=== PATIENT | female | born 1940 | race Caucasian/White ===

== ENCOUNTER 2017-10-12 13:59 | Emergency (ER) | payer BC, MEDICARE ==
[2017-10-12] MEDS: ACETAMINOPHEN 325 MG TABLET. PO (15:14)
== END 2017-10-12 16:00 | disposition home or self-care (01) ==
LOC: ER 13:59
DX: S09.90XA Unspecified injury of head, initial encounter (principal); E03.9 Hypothyroidism, unspecified; I10 Essential (primary) hypertension; E11.9 Type 2 diabetes mellitus without complications; Z88.5 Allergy status to narcotic agent; Z88.8 Allergy status to other drugs, medicaments and biological substances; W10.1XXA Fall (on)(from) sidewalk curb, initial encounter; Y93.01 Activity, walking, marching and hiking; Y99.8 Other external cause status; Y92.89 Other specified places as the place of occurrence of the external cause
CPT/HCPCS: 70450; 70480; 72125; 99284-25

== ENCOUNTER → 2019-03-27 | Outpatient (CLI) | payer MEDICARE ==
[2017-10-12 15:30] VITALS: BP 110/57
[~2019-03-27] MED LIST: ACET325T9 PO; AMLO5TAB10 PO; ASPI-482 PO; ASPI325T8 PO; CIPR250T30 PO; ENOX40DI SQ; FURO40TA4 PO; FURO80TA72 PO; GABA300C18 PO; HYDR-2769 PO; INSU100C SQ; INSU100I18 SQ; INSU100V8 SQ; IRBE75TA2 PO; LEVO175T5 PO; LEVO75TA5 PO; LINE600T12 PO; LORA1TAB PO; LOSA25TA54 PO; METF10007 PO; METF500T16 PO; MUPI22OI2 TP; PIPE3.379 IV; POTA20TA12 PO; POTA20TA4 PO; TRAM50TA PO; VANC750F IV
--- NOTE | 2019-03-27 17:31 | RAD ---
Examination: VENOUS LOWER EXTREMITY RIGHT History: Swelling Comparison/Correlation: None FINDINGS: Right lower extremity duplex venous ultrasound exam was performed. Grayscale, color Doppler, and spectral Doppler imaging was performed. Compression and augmentation was performed. The right common femoral vein, superficial femoral vein, popliteal vein, and greater saphenous vein are normal with no evidence of deep venous thrombus. Normal compressibility and augmentation is evident. Visualized right calf veins are unremarkable. IMPRESSION: Normal right lower extremity duplex ultrasound exam. No evidence of deep venous thrombus involving the right lower extremity. Electronically signed by: Alcides Finch MD (03/27/2019 5:28 PM) [facility]
== END | disposition home or self-care (01) ==
LOC: US 14:59
PROVIDERS: ATTEND Internal Medicine
DX: M79.89 Other specified soft tissue disorders (principal); E11.9 Type 2 diabetes mellitus without complications
CPT/HCPCS: 93971

== ENCOUNTER 2019-05-18 21:21 | Inpatient (IN) | payer MEDICARE ==
[~2019-05-18] VITALS: Ht 167.6 cm; Wt 123.7 kg
[2019-05-18 21:52] LABS: BASO # 0.1 x10^3/uL (0.0-0.2); BASO % 1 % (0-3); EOS # 0.2 x10^3/uL (0.0-0.7); EOS % 2 % (0-3); HEMATOCRIT 33.6 % (36.0-47.0); HEMOGLOBIN 10.1 g/dL (12.0-15.5); LYMPH % 9 % (24-48); MEAN CORPUSCULAR HEMOGLOBIN 22 pg (25-35); MEAN CORPUSCULAR HGB CONC 30 g/dL (31-37); MEAN CORPUSCULAR VOLUME 71 fL (79-100); MONO % 9 % (0-9); NEUT % 80 % (31-73); PLATELET COUNT 342 x10^3/uL (140-400); RED CELL DISTRIBUTION WIDTH 18.5 % (11.5-14.5); WHITE BLOOD COUNT 11.3 x10^3/uL (4.0-11.0)
--- NOTE | 2019-05-18 21:57 | PHYS DOC ---
Past Medical History Past Medical History: Diabetes-Type II, Hypertension, Hypothyroid, Other Additional Past Medical Histor: cpap at night for sleep apnea Past Surgical History: Appendectomy, Hysterectomy, Tonsillectomy, Other Additional Past Surgical Histo: patient reports bilateral toe amputations. LEFT BKA Smoking Status: Never Smoker Alcohol Use: None Drug Use: None Adult General Chief Complaint Chief Complaint: MULTIPLE COMPLAINTS HPI HPI 78-year-old female presents to the emergency department with complaints of shortness of breath, abdominal distention, nausea as well as vomiting. Patient denies any fever. She states her last bowel movement was yesterday. Upon arrival patient's oxygen saturations were 77% on room air. She is currently on 4 L with saturations of 100%. She has decreased lung sounds appreciated bilaterally on exam. She is mildly tachypneic on examination. Patient states she uses a sleep apnea machine at home however no oxygen. Nothing makes her symptoms worse, nothing makes her symptoms better. She is overall not felt well for the last month however the shortness of breath is what brought her to the emergency depar tment for further evaluation. Patient denies any chest pain, headache, visual change she does complain of right lower extremity swelling and edema with weeping. Review of Systems Review of Systems Constitutional: Denies fever or chills [] Respiratory: +SOB Cardiovascular: No additional information not addressed in HPI [] GI: + abdominal pain, nausea, vomiting, no bloody stools or diarrhea [] : Denies dysuria or hematuria [] Musculoskeletal: Denies back pain or joint pain, RLE edema appreciated/weeping [] Integument: Denies rash or skin lesions [] Neurologic: Denies headache, focal weakness or sensory changes [] All other systems were reviewed and found to be within normal limits, except as documented in this note. Current Medications Current Medications Current Medications Medications (Trade) Dose Ordered Sig/Meagan Start Time Stop Time Status Last Admin Dose Admin Albuterol/ Ipratropium (Duoneb) 3 ml 1X ONCE 05/18/19 22:00 05/18/19 22:01 DC 05/18/19 22:00 3 ML Allergies Allergies Allergies Coded Allergies Type Severity Reaction Last Updated Verified lisinopril Allergy Severe THROAT, TONGUE SWELLING 11/16/13 Yes adhesive Allergy Intermediate TAPE-RED SKIN 11/16/13 Yes sertraline HCl Allergy Intermediate 11/16/13 Yes morphine Adverse Reaction Intermediate Nausea 11/16/13 Yes Physical Exam Physical Exam Constitutional: Well developed, well nourished, no acute distress, non-toxic appearance. [] HENT: Normocephalic, atraumatic, bilateral external ears normal, oropharynx moist, no oral exudates, nose normal. [] Eyes: PERRLA, EOMI, conjunctiva normal, no discharge. [] Cardiovascular:Heart rate regular rhythm, no murmur [] Lungs & Thorax: decreased BS Abdomen: Bowel sounds normal, soft, no tenderness, no masses, no pulsatile masses. [] Skin: Warm, dry, no erythema, no rash. [] Back: No tenderness, no CVA tenderness. [] Extremities: RLE tenderness, + edema, left BKA [] Neurologic: Alert and oriented X 3, no focal deficits noted. [] Psychologic: Affect normal, judgement normal, mood normal. [] Current Patient Data Vital Signs Vital Signs Date Time Temp Pulse Resp B/P (MAP) Pulse Ox O2 Delivery O2 Flow Rate FiO2 05/18/19 22:00 Room Air Lab Values Laboratory Tests Test 05/18/19 21:30 05/18/19 22:35 05/18/19 23:55 White Blood Count 11.3 x10^3/uL (4.0-11.0) H Red Blood Count 4.70 x10^6/uL (3.50-5.40) Hemoglobin 10.1 g/dL (12.0-15.5) L Hematocrit 33.6 % (36.0-47.0) L Mean Corpuscular Volume 71 fL (79-100) L Mean Corpuscular Hemoglobin 22 pg (25-35) L Mean Corpuscular Hemoglobin Concent 30 g/dL (31-37) L Red Cell Distribution Width 18.5 % (11.5-14.5) H Platelet Count 342 x10^3/uL (140-400) Neutrophils (%) (Auto) 80 % (31-73) H Lymphocytes (%) (Auto) 9 % (24-48) L Monocytes (%) (Auto) 9 % (0-9) Eosinophils (%) (Auto) 2 % (0-3) Basophils (%) (Auto) 1 % (0-3) Neutrophils # (Auto) 9.0 x10^3/uL (1.8-7.7) H Lymphocytes # (Auto) 1.0 x10^3/uL (1.0-4.8) Monocytes # (Auto) 1.0 x10^3/uL (0.0-1.1) Eosinophils # (Auto) 0.2 x10^3/uL (0.0-0.7) Basophils # (Auto) 0.1 x10^3/uL (0.0-0.2) Toxic Granulation Slight Platelet Estimate Adequate (ADEQUATE) Polychromasia Slight Hypochromasia Mod Anisocytosis Slight Microcytosis Marked Target Cells Occ D-Dimer (Lexi) 1.14 ug/mlFEU (0.00-0.50) H Sodium Level 143 mmol/L (136-145) Potassium Level 4.3 mmol/L (3.5-5.1) Chloride Level 101 mmol/L (98-107) Carbon Dioxide Level 35 mmol/L (21-32) H Anion Gap 7 (6-14) Blood Urea Nitrogen 29 mg/dL (7-20) H Creatinine 1.2 mg/dL (0.6-1.0) H Estimated GFR (Cockcroft-Gault) 43.6 BUN/Creatinine Ratio 24 (6-20) H Glucose Level 158 mg/dL (70-99) H Calcium Level 9.4 mg/dL (8.5-10.1) Total Bilirubin 0.8 mg/dL (0.2-1.0) Aspartate Amino Transferase (AST) 10 U/L (15-37) L Alanine Aminotransferase (ALT) 10 U/L (14-59) L Alkaline Phosphatase 81 U/L (46-116) VA-Ewg-U-Type Natriuretic Peptide 3884 pg/mL (0-449) H Total Protein 7.9 g/dL (6.4-8.2) Albumin 3.2 g/dL (3.4-5.0) L Albumin/Globulin Ratio 0.7 (1.0-1.7) L Influenza Type A Antigen Negative (NEGATIVE) Influenza Type B Antigen Negative (NEGATIVE) Urine Collection Type Unknown Urine Color Yellow Urine Clarity Clear Urine pH 7.5 (<5.0-8.0) Urine Specific [place] 1.015 (1.000-1.030) Urine Protein 30 mg/dL (NEG-TRACE) Urine Glucose (UA) Negative mg/dL (NEG) Urine Ketones (Stick) Negative mg/dL (NEG) Urine Blood Trace (NEG) Urine Nitrite Negative (NEG) Urine Bilirubin Negative (NEG) Urine Urobilinogen Dipstick 1.0 mg/dL (0.2 mg/dL) Urine Leukocyte Esterase Moderate (NEG) Urine RBC 1-2 /HPF (0-2) Urine WBC 11-20 /HPF (0-4) Urine Squamous Epithelial Cells Many /LPF Urine Bacteria Many /HPF (0-FEW) Laboratory Tests 05/18/19 21:30 Laboratory Tests 05/18/19 21:30 EKG EKG EKG interpretation time 2144 left axis deviation, normal sinus rhythm, heart rate 86, no STEMI[] Radiology/Procedures Radiology/Procedures [address] [address] IMAGING REPORT Signed PATIENT: DIMAS REDMOND ACCOUNT: [id number] : 1940 LOCATION: ER AGE: 78 SEX: F EXAM STATUS: REG ER ORD. PHYSICIAN: SANDY PEDERSEN MD REASON: SOB PROCEDURE: PORTABLE CHEST 1V AP chest. HISTORY: Short of breath AP view was taken of the chest. Patient rotated to the left. Heart is within normal limits. There is haziness of the costophrenic angles from atelectasis or infiltrates or small effusions. There is mild vascular congestion versus mild interstitial changes or crowding of the vasculature from poor inspiration. IMPRESSION: 1. Densities at the costophrenic angles from small effusions versus mild atelectasis or infiltrates. 2. Mild interstitial prominence. Electronically signed by: Serafin Cervantes MD (05/18/2019 11:24 PM) [id number] DICTATED and SIGNED BY: SERAFIN CERVANTES MD DATE: 05/18/192323 [] [address] [address] IMAGING REPORT Signed PATIENT: DIMAS REDMOND ACCOUNT: [id number] : 1940 LOCATION: ER AGE: 78 SEX: F EXAM STATUS: REG ER ORD. PHYSICIAN: SANDY PEDERSEN MD REASON: eelvated ddimer, right lower ext edema PROCEDURE: VENOUS LOWER EXTREMITY RIGHT Examination: Unilateral venous Doppler. Grayscale, color Doppler and spectral analysis were obtained. Indication: Leg swelling Comparison: 03/27/2019 Findings: There is normal venous flow and compressibility of right common femoral vein, femoral vein, popliteal vein, and visualized proximal calf veins. Soft tissue swelling right lower leg. Impression: No evidence for deep vein thrombosis of right lower extremity from the level of the calf veins to the groins. Electronically signed by: Anton Rodriguez MD (05/19/2019 12:02 AM) [id number] DICTATED and SIGNED BY: ANTON RODRIGUEZ MD DATE: 05/19/19 0002 Course & Med Decision Making Course & Med Decision Making Pertinent Labs and Imaging studies reviewed. (See chart for details) []78-year-old female presents to the emergency department with complaints of shortness of breath, abdominal distention, nausea as well as vomiting. Patient denies any fever. She states her last bowel movement was yesterday. Upon arrival patient's oxygen saturations were 77% on room air. She is currently on 4 L with saturations of 100%. She has decreased lung sounds appreciated bilaterally on exam. She is mildly tachypneic on examination. Patient states she uses a sleep apnea machine at home however no oxygen. Nothing makes her symptoms worse, nothing makes her symptoms better. She is overall not felt well for the last month however the shortness of breath is what brought her to the emergency department for further evaluation. Patient denies any chest pain, headache, visual change she does complain of right lower extremity swelling and edema with weeping. Labs/Imaging reviewed WBC 11.3 CXR with evidence of effusion/consolidation left lower lobe CT chest without contrast pending V/Q scan pending Heparin drip initiated in ER until V/Q scan completed Doppler negative for DVT in RLE Discussed admit with Dr. Jane Story Disclaimer Jez Disclaimer This electronic medical record was generated, in whole or in part, using a voice recognition dictation system. Departure Departure Impression: Primary Impression: Hypoxia Additional Impressions: Left lower lobe consolidation Elevated d-dimer Disposition: ADMITTED INPATIENT Admitting Physician: MIRELLA Condition: IMPROVED Referrals: TERE ALLISON MD (PCP) Critical Care Time Critical care time was 35 minutes exclusive of procedures. Problem Qualifiers SANDY PEDERSEN MD May 18, 2019 21:56
[2019-05-18] MEDS ORDERED: IPRATRPIUM/ALBUTEROL 0.5/2.5MG 3 ML NEBU. NEB ONE (22:00)
[2019-05-18 22:01] LABS: CALCIUM 9.4 mg/dL (8.5-10.1); CREATININE 1.2 mg/dL (0.6-1.0); GFR 43.6; POTASSIUM 4.3 mmol/L (3.5-5.1)
[2019-05-18 22:08] LABS: ALBUMIN 3.2 g/dL (3.4-5.0); ALBUMIN/GLOBULIN RATIO 0.7 (1.0-1.7); TOTAL BILIRUBIN 0.8 mg/dL (0.2-1.0); TOTAL PROTEIN 7.9 g/dL (6.4-8.2)
[2019-05-18 22:14] LABS: ANISOCYTOSIS SLIGHT; HYPOCHROMIA MOD; MICROCYTOSIS MARKED; PLT ESTIMATE ADEQUATE (ADEQUATE); POLYCHROMASIA SLIGHT; TARGET CELLS OCC; TOXIC GRANULATION SLIGHT
--- NOTE | 2019-05-18 22:44 | EKG ---
[facility] [address] [place] [address] Test Date: 2019-05-18 Test Time: 21:39:17 Pat Name: DIMAS REDMOND Department: Room: Gender: F Technology Infusion Specialist: : 1940 Requested By: SANDY PEDERSEN Order Number: [id number] Reading MD: Measurements Intervals Frostproof Rate: 85 P: 37 ID: [id number] QRS: -49 QRSD: 116 T: 107 QT: 368 QTc: 443 Interpretive Statements SINUS RHYTHM ABNORMAL LEFT AXIS DEVIATION LEFT ANTERIOR FASCICULAR BLOCK QRS(T) CONTOUR ABNORMALITY CONSISTENT WITH ANTEROSEPTAL INFARCT PROBABLY OLD T ABNORMALITY IN HIGH LATERAL LEADS ABNORMAL ECG No previous ECG available for comparison
[2019-05-18 23:03] LABS: INFLUENZA A PATIENT NEGATIVE (NEGATIVE); INFLUENZA B PATIENT NEGATIVE (NEGATIVE)
--- NOTE | 2019-05-18 23:27 | RAD ---
AP chest. HISTORY: Short of breath AP view was taken of the chest. Patient rotated to the left. Heart is within normal limits. There is haziness of the costophrenic angles from atelectasis or infiltrates or small effusions. There is mild vascular congestion versus mild interstitial changes or crowding of the vasculature from poor inspiration. IMPRESSION: 1. Densities at the costophrenic angles from small effusions versus mild atelectasis or infiltrates. 2. Mild interstitial prominence. Electronically signed by: Serafin Cervantes MD (05/18/2019 11:24 PM) [id number]
--- NOTE | 2019-05-19 00:05 | RAD ---
Examination: Unilateral venous Doppler. Grayscale, color Doppler and spectral analysis were obtained. Indication: Leg swelling Comparison: 03/27/2019 Findings: There is normal venous flow and compressibility of right common femoral vein, femoral vein, popliteal vein, and visualized proximal calf veins. Soft tissue swelling right lower leg. Impression: No evidence for deep vein thrombosis of right lower extremity from the level of the calf veins to the groins. Electronically signed by: Anton Gonzales MD (05/19/2019 12:02 AM) [id number]
[2019-05-19 00:13] LABS: BILIRUBIN,URINE NEGATIVE (NEG); CLARITY,URINE CLEAR; COLOR,URINE YELLOW; NITRITE,URINE NEGATIVE (NEG); PH,URINE 7.5 (<5.0-8.0); PROTEIN,URINE 30 mg/dL (NEG-TRACE)
[2019-05-19 00:29] LABS: BACTERIA,URINE MANY /HPF (0-FEW); SQUAMOUS EPITHELIAL CELL,UR MANY /LPF
[2019-05-19] MEDS ORDERED: ACETAMINOPHEN 325 MG TABLET. PO PRN (01:15)
[2019-05-19] MEDS ORDERED: ONDANSETRON PF 4 MG/2 ML VIAL. IV PRN (01:15)
[2019-05-19] MEDS ORDERED: HEPARIN for IV BOLUS 10,000 UNIT/10 ML VIAL. IV PRN ×2 (02:00)
[2019-05-19] MEDS ORDERED: HEPARIN 25,000UTS/250ML PREMIX 250 ML IV PRN (02:00)
[2019-05-19] MEDS ORDERED: ANTI-COAG MONITOR BY PHARMACY. MC PRN (02:15)
[2019-05-19] MEDS ORDERED: HEPARIN for IV BOLUS 10,000 UNIT/10 ML VIAL. IV ONE (02:30)
--- NOTE | 2019-05-19 03:15 | RAD ---
CT chest without contrast. HISTORY: Left lower lobe possible consolidation CT scan the chest was done without contrast. There is hypertrophic change in the thoracic spine. There are small to moderate bilateral effusions slightly larger on the right. There is mild atelectasis in both lung bases. There is coronary artery calcification. There is atherosclerotic change in the aorta without an aneurysm. The upper aspect of the liver and spleen are unremarkable. Adrenal glands are normal. There is mild peribronchial thickening in the lung bases. There is atelectasis in the lung bases bilaterally related to the effusions. There is mild linear atelectasis in the lingula. There are no other confluent areas of infiltrate. IMPRESSION: 1. Bilateral pleural effusions. 2. Mild atelectasis in both lung bases. 3. Mild peribronchial thickening without other confluent areas of infiltrate. PQRS Compliance Statement: One or more of the following individualized dose reduction techniques were utilized for this examination: 1. Automated exposure control 2. Adjustment of the mA and/or kV according to patient size 3. Use of iterative reconstruction technique Electronically signed by: Serafin Cervantes MD (05/19/2019 3:12 AM) [id number]
[2019-05-19 03:45] VITALS: BP 150/62
--- NOTE | 2019-05-19 03:55 | RAD ---
Ventilation/perfusion lung scan. HISTORY: Elevated d-dimer short of breath Ventilation study was done using 15.5 mCi xenon-133. Ventilation images are unremarkable. Perfusion images were done using technetium 99m MAA injected intravenously. Perfusion images match the ventilation images. There is no segmental perfusion defect. There is no ventilation perfusion mismatch. IMPRESSION: 1. Low probability for a pulmonary embolus. Electronically signed by: Serafin Cervantes MD (05/19/2019 3:52 AM) [id number]
[2019-05-19 07:00] VITALS: BP 154/66
[2019-05-19] MEDS: IPRATRPIUM/ALBUTEROL 0.5/2.5MG 3 ML NEBU. NEB SCH ×4 (08:06→20:01)
[2019-05-19] MEDS ORDERED: levOFLOXacin PER PHARMACY. MC PRN (10:00)
[2019-05-19] MEDS ORDERED: FUROSEMIDE 20 MG/2 ML VIAL. IVP ONE (10:00)
--- NOTE | 2019-05-19 10:13 | CONS ---
DATE OF CONSULTATION: 05/19/2019 PULMONARY CONSULTATION ATTENDING PHYSICIAN: Ramirez Lara MD REASON FOR CONSULTATION: Dyspnea, hypoxia. HISTORY OF PRESENT ILLNESS: The patient is a 78-year-old morbidly obese patient with a BMI of 44. She has a history of obstructive sleep apnea, for which she uses CPAP and oxygen at night. She was brought into the hospital with complaint of increased shortness of breath. She has increased abdominal distention, also had swelling in her right lower extremity. She had no fever. She had a mild cough. Her saturation was 77% on room air. The patient had no chest pains. She was placed on oxygen. Currently, she is on a nasal cannula and her saturations are 96% on 2.5 liters. She is afebrile. I have reviewed the patient's V/Q scan, which showed low probability for pulmonary embolism. Influenza screen was negative. Since her D-dimer was 1.14, the V/Q scan was done. Venous Dopplers were negative as well. She underwent CT chest without contrast that showed bibasilar pleural effusions. I have been asked to see her for further evaluation. PAST MEDICAL HISTORY: Significant for type 2 diabetes, hypertension, hypothyroidism, history of LULI and possible OHS. PAST SURGICAL HISTORY: Appendectomy, hysterectomy, tonsillectomy, bilateral toe amputation and left BKA. ALLERGIES: LISINOPRIL, MORPHINE AND SERTRALINE. MEDICATIONS: Reviewed as listed in the MRAD including DuoNeb. Heparin per protocol and she received Levaquin. REVIEW OF SYSTEMS: Twelve-point system obtained. Pertinent positives discussed in my history of present illness, otherwise noncontributory. All systems that were negative were reviewed as well. SOCIAL HISTORY: Minimal tobacco history. PHYSICAL EXAMINATION: VITAL SIGNS: Reviewed. Blood pressure 154/66. Afebrile, pulse ox 95% on 2.5 liters. NECK: Supple. LUNGS: With diminished breath sounds. CARDIOVASCULAR: Regular rate. ABDOMEN: Soft, distended. EXTREMITIES: With 2+ pitting edema on the right with some erythema. LABORATORY DATA: Reviewed. Influenza screen negative. D-dimer high. BUN and creatinine 29 and 1.2. ProBNP is 3884. White cell count 11.3. IMPRESSION: 1. Acute hypoxic respiratory failure secondary to multifactorial etiologies including combination of [id number] right heart failure and acute bronchitis. 2. Abnormal D-dimer, which can be nonspecific finding. No evidence of pulmonary embolism by V/Q scan. Her venous Doppler of the right lower extremity was negative for deep venous thrombosis. 3. Bilateral pleural effusions, likely related to [id number] right heart failure. 4. History of obstructive sleep apnea, on home CPAP along with oxygen. She likely has a component of obesity hypoventilation syndrome as well as her bicarbonate is chronically elevated. RECOMMENDATIONS: 1. Continue present oxygen to keep saturation 92 and above. 2. Would recommend p.r.n. Lasix. Keep an eye on the renal function. 3. Full-dose heparin can be changed to DVT prophylaxis dose. 4. Continue bronchodilators. 5. Add empiric antibiotics. 6. Discussed with and will follow along with you. BILL BHANDARI MD DR: AUBREY/los JOB#: [id number] / [id number]
--- NOTE | 2019-05-19 10:38 | PDOC ---
Provider Note Provider Note history and physical dictated # [id number] TERE ALLISON MD May 19, 2019 10:38
[2019-05-19] MEDS ORDERED: ENOXAPARIN 30 MG/0.3 ML SYRINGE. SQ SCH (10:45)
[2019-05-19] MEDS ORDERED: ONDANSETRON PF 4 MG/2 ML VIAL. IVP PRN (10:45)
[2019-05-19 11:00] VITALS: BP 143/64
--- NOTE | 2019-05-19 11:02 | HP ---
ADMIT DATE: 05/19/2019 LOCATION: She is in room 662. HISTORY OF PRESENT ILLNESS: The patient is a 78-year-old morbidly obese white female with history of diabetes mellitus type 2, hypertension and hyperlipidemia with a previous left total knee arthroplasty and has obstructive sleep apnea who was admitted to [facility] through the Emergency Room on 05/19/2019 with 1-week history of shortness of breath and a dry cough. She denied any fever or hemoptysis. Her D-dimer was elevated at 1.14 and she underwent a ventilation perfusion scan of the lung, which showed low probability of pulmonary embolus and she had a venous Doppler of the right leg that was negative for deep vein thrombosis. Her influenza screen was negative. She also complained of some nausea and some abdominal distention. Her last bowel movement was 2 days ago. She denied any vomiting. Her oxygen saturations were 77% in the Emergency Room and she was started on oxygen per nasal cannula and subsequently admitted to the hospital. Her proBNP was elevated consistent with congestive heart failure. A CAT scan of the chest showed bilateral pleural effusions. She did receive Lasix 20 mg IV in the Emergency Room, also received 750 mg of Levaquin IV x 1 in the Emergency Room and started on a heparin drip. She was subsequently admitted to the hospital for further evaluation and treatment. ALLERGIES AND INTOLERANCES: INCLUDE ADHESIVE TAPE, LISINOPRIL, MORPHINE AND SERTRALINE. MEDICATIONS: Include allopurinol 100 mg every day, amlodipine 5 mg every day, aspirin 325 mg every day. Also, taking atorvastatin 10 mg every day at bedtime, carvedilol 6.25 mg b.i.d., Lasix 80 mg p.o. daily, gabapentin 300 mg t.i.d., levothyroxine 150 mcg every day. She is on 24 units of Lantus insulin at bedtime. She takes losartan 100 mg every day, metformin 1000 mg b.i.d., Myrbetriq 25 mg every day, NovoLog insulin 8 units before meals 3 times a day, Senokot-S 2 tablets every day and Paxil 20 mg every day. PAST MEDICAL HISTORY: Significant for diabetes mellitus type 2, on insulin; hypertension; hyperlipidemia; hypothyroidism; obstructive sleep apnea; chronic gout; left below-knee amputation; diabetic nephropathy; endometrial carcinoma. She has had diabetic proliferative retinopathy. She had a left below-knee amputation in 2013. She had a hysterectomy, bilateral salpingo-oophorectomy, right carpal tunnel release, left vitrectomy, appendectomy, tonsillectomy, amputation of right third toe, laser treatments to her eyes, amputation of fourth left toe, amputation of right second toe and amputation of third left toe. SOCIAL HISTORY: She is , does not drink alcohol nor does she smoke cigarettes. FAMILY HISTORY: Noncontributory. REVIEW OF SYSTEMS: GENERAL: There has been no fever, chills or sweats. CARDIOVASCULAR: No chest pain. PULMONARY: She had a dry cough and shortness of breath. GASTROINTESTINAL: Abdominal distention, nausea. ENDOCRINE: She has diabetes mellitus. SKIN: No rashes. Rest of systems reviewed are negative except as stated in history of present illness. PHYSICAL EXAMINATION: VITAL SIGNS: Temperature is 97.7 degrees, apical pulse is regular at 86, respiratory rate 18, blood pressure 154/66, oxygen saturation 96% on 3 liters per nasal cannula. HEENT: Eyes: Gaze is conjugate. Mouth: Tongue is midline. NECK: There is no cervical lymphadenopathy or thyroid enlargement. HEART: Reveals an S1, S2. There is no S3 or murmur. LUNGS: Reveal decreased breath sounds in the bases. ABDOMEN: Obese and soft. Bowel sounds positive, nontender. EXTREMITIES: Lower extremities 1+ edema in her right leg. She had a left below-knee amputation. SKIN: No rashes. NEUROLOGIC: Coherent with no focal weakness. LABORATORY DATA: White count 11.3, hemoglobin 10.1 with a platelet count 342,000, 80 polys and 9 lymphocytes. A D-dimer was 1.14. Sodium 143, potassium 4.3, chloride 101, total CO2 of 35, BUN 29, creatinine 1.2, blood sugar was 158. Liver function tests were normal. Her proBNP was increased at 3884. Albumin was 3.2. Fingerstick blood sugar was 133 this morning. Urinalysis showed 11-20 white cells. Influenza A and B were negative. She had a chest x-ray done, which showed densities and small effusions noted, densities in the costophrenic angles with mild interstitial prominence. She had a venous Doppler of the right lower extremity, which was negative for a deep vein thrombosis. She had a ventilation perfusion scan of low probability of pulmonary embolus. A CAT scan of the chest showed bilateral pleural effusions with mild atelectasis in lung bases. She had mild peribronchial thickening also noted without a confluent infiltrate. She had an electrocardiogram done. EKG showed normal sinus rhythm, left axis deviation, left anterior hemiblock and delayed precordial R-wave progression. ASSESSMENT: 1. Acute hypoxic respiratory failure, most likely secondary to bilateral pleural effusions and congestive heart failure. 2. Bilateral pleural effusions. 3. Acute congestive heart failure. It is unclear if it is systolic or diastolic. 4. Diabetes mellitus type 2, on insulin. 5. Hypertension. 6. Hyperlipidemia. 7. Hypothyroidism. 8. Obstructive sleep apnea. 9. History of a left total knee arthroplasty. 10. Anemia of chronic disease. PLAN: At this time is to consult Dr. Shankar who has already seen the patient for Pulmonary. We will consult Dr. Powers for Cardiology. Obtain an echocardiogram. Discontinue the systemic IV heparin. She will be a full admit. We can resume her home medications. Order Lovenox for deep vein thrombosis prophylaxis. Put her on IV Lasix. Repeat her laboratory test tomorrow. We will get a CAT scan of abdomen and pelvis without contrast. Bre fisher for nausea. TERE ALLISON MD DR: LAURA/los JOB#: [id number] / [id number]
--- NOTE | 2019-05-19 11:40 | PDOC2 ---
CARDIAC CONSULT DATE OF CONSULT Date of Consult DATE: 05/19/19 TIME: 11:25 REASON FOR CONSULT Reason for Consult: CHF REFERRING PHYSICIAN Referring Physician: Jane SOURCE Source: Chart review, Patient HISTORY OF PRESENT ILLNESS HISTORY OF PRESENT ILLNESS This is a pleasant 78 yo female admitted for complains of shortness of breath. This has been going on in the last 1.5 weeks Denies any chest pain but positive for orthopnea, increasing right leg swelling as she has LBKA. Reports no palpitations or frequent dizziness. She has LULI and has not used her CPAP for months complaining of fitting issue and that her machine is old. Reports compliance with her medications. No hx of VTE/CAD. She had remote MPI. Rep orts that she has been more fatigue and has gained wt and SOA increasing, right shoe getting tighter. PAST MEDICAL HISTORY Past Medical History Cardiovascular: HTN, Hyperlipidemia, Mild PAD, CHF Pulmonary: Other (CPAP with O2 at bedtime), Pneumonia CENTRAL NERVOUS SYSTEM: DPN GI: GERD Heme/Onc: Anemia, endometrial CA Hepatobiliary: No pertinent hx Psych: Anxiety Musculoskeletal: Osteoarthritis Rheumatologic: gout Infectious disease: Other (nasal MRSA), osteomyelitis ENT: cataract, retinopathy Renal/: UTI, CKD Endocrine: Diabetes, Hypothyroidism Dermatology: none PAST SURGICAL HISTORY Past Surgical History Appe, Cataract Removal, Total knee replacement, Tonsillectomy, Hysterectomy (MARY with BSO), Other (right carpal tunnel release, toe amputations. ), LBKA FAMILY HISTORY Family History noncontributory SOCIAL HISTORY Smoke: No ALCOHOL: none Drugs: None Lives: with Family CURRENT MEDICATIONS CURRENT MEDICATIONS Current Medications Medications (Trade) Dose Ordered Sig/Meagan Route PRN Reason Start Time Stop Time Status Last Admin Dose Admin Albuterol/ Ipratropium (Duoneb) 3 ml 1X ONCE NEB 05/18/19 22:00 05/18/19 22:01 DC 05/18/19 22:00 Levofloxacin/ Dextrose 150 ml @ 100 mls/hr 1X ONCE IV 05/19/19 01:30 05/19/19 02:59 DC 05/19/19 05:34 Albuterol/ Ipratropium (Duoneb) 3 ml RTQID NEB 05/19/19 08:00 05/20/19 07:59 05/19/19 08:06 Heparin Sodium (Porcine) (Heparin Sodium) 10,000 unit 1X ONCE IV 05/19/19 02:30 05/19/19 02:31 DC 05/19/19 02:40 Heparin Sodium/ Dextrose 250 ml @ 0 mls/hr CONT PRN IV PER PROTOCOL 05/19/19 02:00 05/19/19 10:47 DC 05/19/19 02:42 Info (Anti-Coagulation Monitoring By Pharmacy) 1 each PRN DAILY PRN MC SEE COMMENTS 05/19/19 02:15 05/19/19 10:47 DC 05/19/19 05:00 Furosemide (Lasix) 20 mg 1X ONCE IVP 05/19/19 10:00 05/19/19 10:03 DC 05/19/19 10:58 ALLERGIES ALLERGIES: Coded Allergies: lisinopril (Verified Allergy, Severe, THROAT, TONGUE SWELLING, 11/16/13) adhesive (Verified Allergy, Intermediate, TAPE-RED SKIN, 11/16/13) sertraline HCl (Verified Allergy, Intermediate, 11/16/13) morphine (Verified Adverse Reaction, Intermediate, Nausea, 11/16/13) ROS Review of System 14 point ROS evaluated with pertinent positives noted per HPI PHYSICAL EXAM General: Alert, Oriented X3, Cooperative, mild distress HEENT: Atraumatic, Mucous membr. moist/pink Lungs: Other (diminished with basilar crackles) Abdomen: Soft, No tenderness, Other (obese) Extremities: No cyanosis, Other (LBKA, 4+ RLE edema pitting) Skin: No breakdown, No significant lesion Neuro: Normal speech, Sensation intact Psych/Mental Status: Mental status NL, Mood NL MUSCULOSKELETAL: Osteoarthritic changes both hands VITALS/I&O VITALS/I&O: Vital Signs Date Time Temp Pulse Resp B/P (MAP) Pulse Ox O2 Delivery O2 Flow Rate FiO2 05/19/19 08:07 95 Nasal Cannula 2.5 05/19/19 07:00 97.7 86 18 154/66 (95) 97.7 I & O 05/18/19 05/18/19 05/19/19 15:00 23:00 07:00 Intake Total 0 ml Output Total 300 ml Balance -300 ml LABS Lab: Laboratory Tests Test 05/18/19 21:30 05/18/19 22:35 05/18/19 23:55 05/19/19 07:49 White Blood Count 11.3 x10^3/uL (4.0-11.0) H Red Blood Count 4.70 x10^6/uL (3.50-5.40) Hemoglobin 10.1 g/dL (12.0-15.5) L Hematocrit 33.6 % (36.0-47.0) L Mean Corpuscular Volume 71 fL (79-100) L Mean Corpuscular Hemoglobin 22 pg (25-35) L Mean Corpuscular Hemoglobin Concent 30 g/dL (31-37) L Red Cell Distribution Width 18.5 % (11.5-14.5) H Platelet Count 342 x10^3/uL (140-400) Neutrophils (%) (Auto) 80 % (31-73) H Lymphocytes (%) (Auto) 9 % (24-48) L Monocytes (%) (Auto) 9 % (0-9) Eosinophils (%) (Auto) 2 % (0-3) Basophils (%) (Auto) 1 % (0-3) Neutrophils # (Auto) 9.0 x10^3/uL (1.8-7.7) H Lymphocytes # (Auto) 1.0 x10^3/uL (1.0-4.8) Monocytes # (Auto) 1.0 x10^3/uL (0.0-1.1) Eosinophils # (Auto) 0.2 x10^3/uL (0.0-0.7) Basophils # (Auto) 0.1 x10^3/uL (0.0-0.2) Toxic Granulation Slight Platelet Estimate Adequate (ADEQUATE) Polychromasia Slight Hypochromasia Mod Anisocytosis Slight Microcytosis Marked Target Cells Occ D-Dimer (Lexi) 1.14 ug/mlFEU (0.00-0.50) H Sodium Level 143 mmol/L (136-145) Potassium Level 4.3 mmol/L (3.5-5.1) Chloride Level 101 mmol/L (98-107) Carbon Dioxide Level 35 mmol/L (21-32) H Anion Gap 7 (6-14) Blood Urea Nitrogen 29 mg/dL (7-20) H Creatinine 1.2 mg/dL (0.6-1.0) H Estimated GFR (Cockcroft-Gault) 43.6 BUN/Creatinine Ratio 24 (6-20) H Glucose Level 158 mg/dL (70-99) H Calcium Level 9.4 mg/dL (8.5-10.1) Total Bilirubin 0.8 mg/dL (0.2-1.0) Aspartate Amino Transferase (AST) 10 U/L (15-37) L Alanine Aminotransferase (ALT) 10 U/L (14-59) L Alkaline Phosphatase 81 U/L (46-116) LJ-Jmb-A-Type Natriuretic Peptide 3884 pg/mL (0-449) H Total Protein 7.9 g/dL (6.4-8.2) Albumin 3.2 g/dL (3.4-5.0) L Albumin/Globulin Ratio 0.7 (1.0-1.7) L Influenza Type A Antigen Negative (NEGATIVE) Influenza Type B Antigen Negative (NEGATIVE) Urine Collection Type Unknown Urine Color Yellow Urine Clarity Clear Urine pH 7.5 (<5.0-8.0) Urine Specific [place] 1.015 (1.000-1.030) Urine Protein 30 mg/dL (NEG-TRACE) Urine Glucose (UA) Negative mg/dL (NEG) Urine Ketones (Stick) Negative mg/dL (NEG) Urine Blood Trace (NEG) Urine Nitrite Negative (NEG) Urine Bilirubin Negative (NEG) Urine Urobilinogen Dipstick 1.0 mg/dL (0.2 mg/dL) Urine Leukocyte Esterase Moderate (NEG) Urine RBC 1-2 /HPF (0-2) Urine WBC 11-20 /HPF (0-4) Urine Squamous Epithelial Cells Many /LPF Urine Bacteria Many /HPF (0-FEW) Glucose (Fingerstick) 133 mg/dL (70-99) H Laboratory Tests 05/18/19 21:30 Laboratory Tests 05/18/19 21:30 ECHOCARDIOGRAM ECHOCARDIOGRAM <Conclusion> Technically difficult study aided by the use of Definity. The left ventricle is normal size. Left ventricular systolic function appears normal. Left ventricular ejection fraction is 55-60%. There is no significant aortic valvular stenosis. Doppler and Color Flow revealed no significant aortic regurgitation. Doppler and Color Flow revealed trace to mild mitral valve regurgitation. Doppler and Color Flow revealed mild tricuspid valve regurgitation. There is no evidence of significant pericardial effusion. DATE: 10/30/13 1217 STRESS TEST STRESS TEST Conclusion 1. Regadenoson myocardial perfusion imaging did not show any evidence of ischemia or infarct 2. Normal left ventricular systolic function with ejection fraction calculated at 69% 3. Low one year risk for cardiovascular events DATE: 05/03/13 0913 ASSESSMENT/PLAN ASSESSMENT/PLAN 1. Acute on chronic CHF with possible combined systolic/diastolic dysfunction 2. HTN: labile episodes 3. HLP 4. DM2 5. CKD3? 6. Hypothyroidism 7. UTI: per PCP 8. Hx of mild PAD and CT noted with coronary calcifications. 9. Microcytic hypochromic anemia Recommendations 1. TTE, TSH, trop 2. Lasix therapy 3. Ischemic w/u pending TTE and renal function. MPI vs C. 4. Optimize HF regimen. Monitor rhythm RANDY TRIVEDI APRN May 19, 2019 11:40
--- NOTE | 2019-05-19 12:08 | NUR ---
SS following for discharge planning. SS reviewed pt chart. Pt is from home with spouse and is currently requiring oxygen. SS will continue to follow for discharge planning.
[2019-05-19] MEDS: ASPIRIN 325 MG TABLET PO SCH (12:25)
[2019-05-19] MEDS: ALLOPURINOL 100 MG TABLET. PO SCH (12:25)
[2019-05-19] MEDS: PARoxetine 20 MG TABLET PO SCH (12:25)
[2019-05-19] MEDS: amLODIPine BESYLATE 5 MG TABLET PO SCH (12:25)
[2019-05-19] MEDS: LOSARTAN POTASSIUM 50 MG TABLET. PO SCH (12:26)
[2019-05-19] MEDS: INSULIN LISPRO 300 UNITS/3 ML VIAL. SQ SCH ×2 (12:36→17:22)
[2019-05-19 15:00] VITALS: BP 150/70
[2019-05-19] MEDS: FUROSEMIDE 40 MG/4 ML VIAL. IVP SCH (15:23)
--- NOTE | 2019-05-19 15:45 | RAD ---
EXAM: CT Abdomen and Pelvis without IV contrast INDICATION: Abdominal distention TECHNIQUE: Multi-detector row CT images were acquired from the lung bases through the abdomen and pelvis without the use of IV contrast. Sagittal and coronal images were acquired from the transaxial data. All CT scans performed at this facility utilize dose optimization techniques as appropriate to the exam, including the following: Automated exposure control and adjustment of the mA and/or KV according to patient size (this includes techniques or standardized protocols for targeted exams where dose is indication/reason for exam). IV CONTRAST: Not administered ORAL CONTRAST: Not administered COMPARISON: Abdomen pelvis CT with without IV contrast of 10/29/2013. FINDINGS: LOWER CHEST: Small bilateral pleural effusions, slightly denser than expected for simple fluid, potentially representing complex fluid or hemorrhage. Associated bibasilar atelectasis, right greater than left.. LIVER: Unremarkable BILIARY SYSTEM: Gallbladder is contracted. Bile ducts are not dilated. PANCREAS: Unremarkable SPLEEN: Unremarkable ADRENALS: Unremarkable KIDNEYS & URETERS: Inferior left renal stone measuring 1.5 cm. No hydronephrosis or unexpected perirenal soft tissue stranding. BLADDER: Unremarkable REPRODUCTIVE ORGANS: Hysterectomy. No adnexal mass. Ovaries not well seen. GASTROINTESTINAL: The stomach, small bowel, and colon are unremarkable. The appendix is normal. MESENTERY/PERITONEUM/RETROPERITONEUM: Unremarkable VASCULAR: Unremarkable LYMPH NODES: No adenopathy OSSEOUS & SOFT TISSUES: Soft tissue stranding in the ventral abdominal wall subcutaneous fat. IMPRESSION: Bilateral pleural effusions that may be complicated/complex and soft tissue stranding in the ventral abdominal wall that could reflect cellulitis. Otherwise no acute findings in the abdomen or pelvis on noncontrast CT. Electronically signed by: Dipesh Abdullahi MD (05/19/2019 3:42 PM) [id number]
[2019-05-19] MEDS: CARVEDILOL 6.25 MG TABLET. PO SCH (17:16)
[2019-05-19] MEDS: metFORMIN 500 MG TABLET PO SCH (17:16)
--- NOTE | 2019-05-19 18:31 | CARD ---
MR#: [id number] Date of Study: 05/19/2019 Ordering Physician: TERE ALLISON, Referring Physician: Blue HOOKER: Maritza Hutchins APPROVED REPORT EXAM: Two-dimensional and M-mode echocardiogram with Doppler and color Doppler. Other Information Quality : Technically LimitedHR: 87bpm Rhythm : NSR INDICATION Congestive Heart Failure RISK FACTORS Hypertension Obesity Hyperlipidemia Diabetes 2D DIMENSIONS Left Atrium(2D)4.0 (1.6-4.0cm)IVSd0.9 (0.7-1.1cm) Aortic Root(2D)2.8 (2.0-3.7cm)LVDd5.0 (3.9-5.9cm) LVOT Diameter2.2 (1.8-2.4cm)PWd0.9 (0.7-1.1cm) LVDs3.7 (2.5-4.0cm)FS (%) 25.8 % SV60.0 ml Mitral Valve MV E Whmmgtyq780.7cm/sMV DECEL [id number] MV A Azqqfins735.5cm/sE/A Ratio0.8 MV A Zeglcyyx93xy Pulmonary Valve PV Peak Aduyjepm407.6cm/s Pulmonary Vein S1 Roscopqi32.8cm/sD2 Faywvmnf86.7cm/s PVa [id number] LEFT VENTRICLE Technically limited study. The left ventricle is normal size. There is normal left ventricular wall t hickness. The left ventricular systolic function is normal. The ejection fraction is estimated at 50% . There is normal LV segmental wall motion. Transmitral Doppler flow pattern is Grade I-abnormal rela xation pattern. RIGHT VENTRICLE The right ventricle is normal size. The right ventricular systolic function is normal. ATRIA The left atrium size is normal. The right atrium size is normal. The interatrial septum is intact wit h no evidence for an atrial septal defect or patent foramen ovale as noted on 2-D or Doppler imaging. AORTIC VALVE Poorly visualized. Within the limits of the study, Doppler and Color Flow revealed no significant aor tic regurgitation. There is no significant aortic valvular stenosis. MITRAL VALVE The mitral valve leaflets are thickened. Doppler and Color-flow revealed trace to mild mitral regurgi tation. TRICUSPID VALVE Not well visualized. Doppler and Color Flow revealed trace tricuspid regurgitation. GREAT VESSELS Not well visualized. The IVC is normal in size and collapses >50% with inspiration. PERICARDIAL EFFUSION There is no pleural effusion. There is no evidence of significant pericardial effusion. Critical Notification Critical Value: No <Conclusion> Technically limited study. The left ventricle is normal size. The left ventricular systolic function is normal. The ejection fraction is estimated at 50%. Within the limits of the study, Doppler and Color Flow revealed no significant aortic regurgitation. There is no significant aortic valvular stenosis. Doppler and Color-flow revealed trace to mild mitral regurgitation. Doppler and Color Flow revealed trace tricuspid regurgitation. Signed by : Kyle Charles MD Electronically Approved : 05/19/2019 18:31:11
[2019-05-19 19:20] VITALS: BP 139/63
[2019-05-19] MEDS: ATORVASTATIN CALCIUM 10 MG TABLET. PO SCH (22:09)
[2019-05-19] MEDS: GABAPENTIN 300 MG CAPSULE. PO SCH (22:09)
[2019-05-19] MEDS: ENOXAPARIN 40 MG/0.4 ML SYRINGE. SQ SCH (22:10)
[2019-05-19] MEDS: INSULIN GLARGINE SYRINGE. SQ SCH (22:14)
[2019-05-19 23:55] VITALS: BP 140/67
[2019-05-20] MEDS: LEVOTHYROXINE 150 MCG TABLET PO SCH (05:50)
[2019-05-20] MEDS: INSULIN LISPRO 300 UNITS/3 ML VIAL. SQ SCH ×3 (07:30→16:30)
[2019-05-20] MEDS: metFORMIN 500 MG TABLET PO SCH ×2 (08:00→17:00)
[2019-05-20] MEDS: CARVEDILOL 6.25 MG TABLET. PO SCH ×2 (08:00→17:00)
[2019-05-20] MEDS: FUROSEMIDE 40 MG/4 ML VIAL. IVP SCH (09:00)
[2019-05-20] MEDS: GABAPENTIN 300 MG CAPSULE. PO SCH ×3 (09:00→22:10)
[2019-05-20] MEDS: LOSARTAN POTASSIUM 50 MG TABLET. PO SCH (09:33)
[2019-05-20] MEDS: PANTOPRAZOLE 40 MG TABLET.DR. PO SCH (09:33)
[2019-05-20] MEDS: ALLOPURINOL 100 MG TABLET. PO SCH (09:33)
[2019-05-20] MEDS: ASPIRIN 325 MG TABLET PO SCH (09:33)
[2019-05-20] MEDS: amLODIPine BESYLATE 5 MG TABLET PO SCH (09:33)
[2019-05-20] MEDS: ENOXAPARIN 40 MG/0.4 ML SYRINGE. SQ SCH ×2 (09:33→22:10)
[2019-05-20] MEDS: PARoxetine 20 MG TABLET PO SCH (09:33)
[2019-05-20 11:00] VITALS: BP 124/64
[2019-05-20 12:21] LABS: ALBUMIN 2.9 g/dL (3.4-5.0); ALBUMIN/GLOBULIN RATIO 0.7 (1.0-1.7); CREATININE 1.2 mg/dL (0.6-1.0); GFR 43.6; TOTAL BILIRUBIN 0.9 mg/dL (0.2-1.0)
[2019-05-20 12:46] LABS: BASO # 0.1 x10^3/uL (0.0-0.2); BASO % 1 % (0-3); EOS # 0.2 x10^3/uL (0.0-0.7); EOS % 2 % (0-3); HEMATOCRIT 30.9 % (36.0-47.0); HEMOGLOBIN 9.4 g/dL (12.0-15.5); LYMPH # 1.1 x10^3/uL (1.0-4.8); LYMPH % 14 % (24-48); MEAN CORPUSCULAR HEMOGLOBIN 22 pg (25-35); MEAN CORPUSCULAR HGB CONC 31 g/dL (31-37); MEAN CORPUSCULAR VOLUME 72 fL (79-100); MONO # 0.8 x10^3/uL (0.0-1.1); MONO % 10 % (0-9); NEUT # 5.8 x10^3/uL (1.8-7.7); NEUT % 73 % (31-73); PLATELET COUNT 297 x10^3/uL (140-400); RED CELL DISTRIBUTION WIDTH 18.6 % (11.5-14.5)
--- NOTE | 2019-05-20 12:54 | PDOC ---
PULMONARY PROGRESS NOTES Subjective on 02, sob better, has cough, no cp Vitals Vital Signs Date Time Temp Pulse Resp B/P (MAP) Pulse Ox O2 Delivery O2 Flow Rate FiO2 05/20/19 11:39 98 Nasal Cannula 2.0 05/20/19 11:00 97.8 85 20 124/64 (84) 97.8 ROS: No Nausea General: Alert HEENT: Other (nc at perrl ) Lungs: Clear Cardiovascular: S1, S2 Abdomen: Soft, Non-tender Neuro Exam: Alert Extremities: No Edema Skin: Warm Labs Laboratory Tests Test 05/18/19 21:30 05/18/19 22:35 05/18/19 23:55 05/19/19 07:49 White Blood Count 11.3 x10^3/uL (4.0-11.0) Red Blood Count 4.70 x10^6/uL (3.50-5.40) Hemoglobin 10.1 g/dL (12.0-15.5) Hematocrit 33.6 % (36.0-47.0) Mean Corpuscular Volume 71 fL (79-100) Mean Corpuscular Hemoglobin 22 pg (25-35) Mean Corpuscular Hemoglobin Concent 30 g/dL (31-37) Red Cell Distribution Width 18.5 % (11.5-14.5) Platelet Count 342 x10^3/uL (140-400) Neutrophils (%) (Auto) 80 % (31-73) Lymphocytes (%) (Auto) 9 % (24-48) Monocytes (%) (Auto) 9 % (0-9) Eosinophils (%) (Auto) 2 % (0-3) Basophils (%) (Auto) 1 % (0-3) Neutrophils # (Auto) 9.0 x10^3/uL (1.8-7.7) Lymphocytes # (Auto) 1.0 x10^3/uL (1.0-4.8) Monocytes # (Auto) 1.0 x10^3/uL (0.0-1.1) Eosinophils # (Auto) 0.2 x10^3/uL (0.0-0.7) Basophils # (Auto) 0.1 x10^3/uL (0.0-0.2) Toxic Granulation Slight Platelet Estimate Adequate (ADEQUATE) Polychromasia Slight Hypochromasia Mod Anisocytosis Slight Microcytosis Marked Target Cells Occ D-Dimer (Lexi) 1.14 ug/mlFEU (0.00-0.50) Sodium Level 143 mmol/L (136-145) Potassium Level 4.3 mmol/L (3.5-5.1) Chloride Level 101 mmol/L (98-107) Carbon Dioxide Level 35 mmol/L (21-32) Anion Gap 7 (6-14) Blood Urea Nitrogen 29 mg/dL (7-20) Creatinine 1.2 mg/dL (0.6-1.0) Estimated GFR (Cockcroft-Gault) 43.6 BUN/Creatinine Ratio 24 (6-20) Glucose Level 158 mg/dL (70-99) Calcium Level 9.4 mg/dL (8.5-10.1) Total Bilirubin 0.8 mg/dL (0.2-1.0) Aspartate Amino Transf (AST/SGOT) 10 U/L (15-37) Alanine Aminotransferase (ALT/SGPT) 10 U/L (14-59) Alkaline Phosphatase 81 U/L (46-116) OB-Hgj-T-Type Natriuretic Peptide 3884 pg/mL (0-449) Total Protein 7.9 g/dL (6.4-8.2) Albumin 3.2 g/dL (3.4-5.0) Albumin/Globulin Ratio 0.7 (1.0-1.7) Influenza Type A Antigen Negative (NEGATIVE) Influenza Type B Antigen Negative (NEGATIVE) Urine Collection Type Unknown Urine Color Yellow Urine Clarity Clear Urine pH 7.5 (<5.0-8.0) Urine Specific [place] 1.015 (1.000-1.030) Urine Protein 30 mg/dL (NEG-TRACE) Urine Glucose (UA) Negative mg/dL (NEG) Urine Ketones (Stick) Negative mg/dL (NEG) Urine Blood Trace (NEG) Urine Nitrite Negative (NEG) Urine Bilirubin Negative (NEG) Urine Urobilinogen Dipstick 1.0 mg/dL (0.2 mg/dL) Urine Leukocyte Esterase Moderate (NEG) Urine RBC 1-2 /HPF (0-2) Urine WBC 11-20 /HPF (0-4) Urine Squamous Epithelial Cells Many /LPF Urine Bacteria Many /HPF (0-FEW) Glucose (Fingerstick) 133 mg/dL (70-99) Test 05/19/19 09:10 05/19/19 11:33 05/19/19 15:10 05/19/19 17:02 Heparin Anti-Xa Act, Unfractionated 0.94 IU/mL (0.30-0.70) Troponin I Quantitative 0.191 ng/mL (0.000-0.055) 0.144 ng/mL (0.000-0.055) Thyroid Stimulating Hormone (TSH) 1.190 uIU/mL (0.358-3.74) Glucose (Fingerstick) 189 mg/dL (70-99) 197 mg/dL (70-99) Test 05/19/19 21:27 05/20/19 06:00 05/20/19 07:30 05/20/19 11:00 Glucose (Fingerstick) 110 mg/dL (70-99) 97 mg/dL (70-99) 150 mg/dL (70-99) White Blood Count 8.0 x10^3/uL (4.0-11.0) Red Blood Count 4.30 x10^6/uL (3.50-5.40) Hemoglobin 9.4 g/dL (12.0-15.5) Hematocrit 30.9 % (36.0-47.0) Mean Corpuscular Volume 72 fL (79-100) Mean Corpuscular Hemoglobin 22 pg (25-35) Mean Corpuscular Hemoglobin Concent 31 g/dL (31-37) Red Cell Distribution Width 18.6 % (11.5-14.5) Platelet Count 297 x10^3/uL (140-400) Neutrophils (%) (Auto) 73 % (31-73) Lymphocytes (%) (Auto) 14 % (24-48) Monocytes (%) (Auto) 10 % (0-9) Eosinophils (%) (Auto) 2 % (0-3) Basophils (%) (Auto) 1 % (0-3) Neutrophils # (Auto) 5.8 x10^3/uL (1.8-7.7) Lymphocytes # (Auto) 1.1 x10^3/uL (1.0-4.8) Monocytes # (Auto) 0.8 x10^3/uL (0.0-1.1) Eosinophils # (Auto) 0.2 x10^3/uL (0.0-0.7) Basophils # (Auto) 0.1 x10^3/uL (0.0-0.2) Laboratory Tests Test 05/19/19 15:10 05/19/19 17:02 05/19/19 21:27 05/20/19 06:00 Troponin I Quantitative 0.144 ng/mL (0.000-0.055) Glucose (Fingerstick) 197 mg/dL (70-99) 110 mg/dL (70-99) White Blood Count 8.0 x10^3/uL (4.0-11.0) Red Blood Count 4.30 x10^6/uL (3.50-5.40) Hemoglobin 9.4 g/dL (12.0-15.5) Hematocrit 30.9 % (36.0-47.0) Mean Corpuscular Volume 72 fL (79-100) Mean Corpuscular Hemoglobin 22 pg (25-35) Mean Corpuscular Hemoglobin Concent 31 g/dL (31-37) Red Cell Distribution Width 18.6 % (11.5-14.5) Platelet Count 297 x10^3/uL (140-400) Neutrophils (%) (Auto) 73 % (31-73) Lymphocytes (%) (Auto) 14 % (24-48) Monocytes (%) (Auto) 10 % (0-9) Eosinophils (%) (Auto) 2 % (0-3) Basophils (%) (Auto) 1 % (0-3) Neutrophils # (Auto) 5.8 x10^3/uL (1.8-7.7) Lymphocytes # (Auto) 1.1 x10^3/uL (1.0-4.8) Monocytes # (Auto) 0.8 x10^3/uL (0.0-1.1) Eosinophils # (Auto) 0.2 x10^3/uL (0.0-0.7) Basophils # (Auto) 0.1 x10^3/uL (0.0-0.2) Test 05/20/19 07:30 05/20/19 11:00 Glucose (Fingerstick) 97 mg/dL (70-99) 150 mg/dL (70-99) Medications Active Scripts Medications Dose Route/Sig Max Daily Dose Days Date Category Vancomycin 750 Mg/150 Ml Bag (Vancomycin In Dextrose,Iso-Osm) 750 Mg/150 Ml Froz.piggy 750 Mg IV BID 11/14/13 Reported Potassium Chloride 20 Meq Tab.er.prt 20 Meq PO [id number] 11/14/13 Reported Piperacil-Tazobact 3.375 Gm Vl (Piperacillin Sodium/Tazobactam) 3.375 Gm Vial.port 3.375 Gm IV TID 11/14/13 Reported Amlodipine Besylate 5 Mg Tablet 5 Mg PO DAILY 11/14/13 Reported Levemir Flexpen (Insulin Detemir) 100 Unit/1 Ml Insuln.pen 38 Unit SQ HS 11/14/13 Reported Metformin Hcl 500 Mg Tablet 500 Mg PO BIDWMEALS 11/14/13 Reported Lovenox (Enoxaparin Sodium) 40 Mg/0.4 Ml Disp.syrin 120 Mg SQ BID 11/14/13 Reported Levothyroxine Sodium 175 Mcg Tablet 175 Mcg PO DAILYAC 11/14/13 Reported Gabapentin (Gabapentin) 300 Mg Capsule 300 Mg PO TID 11/14/13 Reported Aspirin 325 Mg Tablet 325 Mg PO DAILY08 11/14/13 Reported Furosemide 40 Mg Tablet 40 Mg PO BID 11/14/13 Reported Hydrocodone-Apap 10-325 (Hydrocodone Bit/Acetaminophen) 1 Each Tablet 1 Each PO PRN Q4HRS 05/19/13 Reported Tylenol (Acetaminophen) 325 Mg Tablet 650 Mg PO PRN Q4HRS 05/19/13 Reported Humalog (Insulin Lispro) 100 Unit/1 Ml Cartridge 12 Unit SQ [id number] 04/20/13 Reported Humalog (Insulin Lispro) 100 Unit/1 Ml Cartridge 12 Unit SQ [id number] 04/20/13 Reported Humalog (Insulin Lispro) 100 Unit/1 Ml Cartridge 12 Unit SQ DAILY07 04/20/13 Reported Lorazepam 1 Mg Tablet 1 Mg PO PRN QHS 04/20/13 Reported Impression . IMPRESSION: 1. Acute hypoxic respiratory failure secondary to multifactorial etiologies including combination of [id number] right heart failure and acute bronchitis. 2. Abnormal D-dimer, which can be nonspecific finding. No evidence of pulmonary embolism by V/Q scan. Her venous Doppler of the right lower extremity was negative for deep venous thrombosis. 3. Bilateral pleural effusions, likely related to [id number] right heart failure. 4. History of obstructive sleep apnea, on home CPAP along with oxygen. She likely has a component of obesity hypoventilation syndrome as well as her bicarbonate is chronically elevated. Plan . RECOMMENDATIONS: 1. Continue present oxygen to keep saturation 92 and above. 6 min walk at DC 2. Would recommend p.r.n. Lasix. monitor k, cr 3. lovenox for DVT prophylaxis 4. Continue bronchodilators. 5. empiric antibiotics. Discussed with pt and will follow along with you. HARVEY CHAMBERS MD May 20, 2019 12:54
--- NOTE | 2019-05-20 14:18 | PDOC ---
PROGRESS NOTES Subjective Subjective feels better. dry cough. not short of breath. ct abdomen and pelvis neg scept for bilateral pleural effusions. echo with LVEF 50%. lab reviewed. Objective Objective Vital Signs Date Time Temp Pulse Resp B/P (MAP) Pulse Ox O2 Delivery O2 Flow Rate FiO2 05/20/19 11:39 98 Nasal Cannula 2.0 05/20/19 11:00 97.8 85 20 124/64 (84) 97.8 Intake and Output 05/20/19 07:00 Intake Total 860 ml Output Total 550 ml Balance 310 ml Intake Oral 860 ml Output Urine Total 550 ml # Voids 2 Physical Exam Abdomen: Soft Heart: Regular rate, Normal S1, Normal S2 Extremities: Other (AKA) General: Alert HEENT: Atraumatic Lungs: Other (decreased breath sounds) Neuro: Normal speech Psych/Mental Status: Mental status NL Skin: No rashes Assessment Assessment Problems1. Acute hypoxic respiratory failure, most likely secondary to bi lateral pleural effusions and acute diastolic congestive heart failure. 2. Bilateral pleural effusions. 3. Acute diastolic congestive heart failure 4. Diabetes mellitus type 2, on insulin. 5. Hypertension. 6. Hyperlipidemia. 7. Hypothyroidism. 8. Obstructive sleep apnea. 9. History of a left total knee arthroplasty. 10. Anemia of chronic disease. pyuria Medical Problems: (1) Elevated d-dimer Status: Acute (2) Hypoxia Status: Acute (3) Left lower lobe consolidation Status: Acute Plan Plan of Care decrease iv lasix switch to oral levaquin urine culture pending PT and OT wean oxygen Comment Review of Relevant I have reviewed the following items helio (where applicable) has been applied. Labs Laboratory Tests Test 05/18/19 21:30 05/18/19 22:35 05/18/19 23:55 05/19/19 07:49 White Blood Count 11.3 x10^3/uL (4.0-11.0) Red Blood Count 4.70 x10^6/uL (3.50-5.40) Hemoglobin 10.1 g/dL (12.0-15.5) Hematocrit 33.6 % (36.0-47.0) Mean Corpuscular Volume 71 fL (79-100) Mean Corpuscular Hemoglobin 22 pg (25-35) Mean Corpuscular Hemoglobin Concent 30 g/dL (31-37) Red Cell Distribution Width 18.5 % (11.5-14.5) Platelet Count 342 x10^3/uL (140-400) Neutrophils (%) (Auto) 80 % (31-73) Lymphocytes (%) (Auto) 9 % (24-48) Monocytes (%) (Auto) 9 % (0-9) Eosinophils (%) (Auto) 2 % (0-3) Basophils (%) (Auto) 1 % (0-3) Neutrophils # (Auto) 9.0 x10^3/uL (1.8-7.7) Lymphocytes # (Auto) 1.0 x10^3/uL (1.0-4.8) Monocytes # (Auto) 1.0 x10^3/uL (0.0-1.1) Eosinophils # (Auto) 0.2 x10^3/uL (0.0-0.7) Basophils # (Auto) 0.1 x10^3/uL (0.0-0.2) Toxic Granulation Slight Platelet Estimate Adequate (ADEQUATE) Polychromasia Slight Hypochromasia Mod Anisocytosis Slight Microcytosis Marked Target Cells Occ D-Dimer (Lexi) 1.14 ug/mlFEU (0.00-0.50) Sodium Level 143 mmol/L (136-145) Potassium Level 4.3 mmol/L (3.5-5.1) Chloride Level 101 mmol/L (98-107) Carbon Dioxide Level 35 mmol/L (21-32) Anion Gap 7 (6-14) Blood Urea Nitrogen 29 mg/dL (7-20) Creatinine 1.2 mg/dL (0.6-1.0) Estimated GFR (Cockcroft-Gault) 43.6 BUN/Creatinine Ratio 24 (6-20) Glucose Level 158 mg/dL (70-99) Calcium Level 9.4 mg/dL (8.5-10.1) Total Bilirubin 0.8 mg/dL (0.2-1.0) Aspartate Amino Transf (AST/SGOT) 10 U/L (15-37) Alanine Aminotransferase (ALT/SGPT) 10 U/L (14-59) Alkaline Phosphatase 81 U/L (46-116) OW-Kxo-S-Type Natriuretic Peptide 3884 pg/mL (0-449) Total Protein 7.9 g/dL (6.4-8.2) Albumin 3.2 g/dL (3.4-5.0) Albumin/Globulin Ratio 0.7 (1.0-1.7) Influenza Type A Antigen Negative (NEGATIVE) Influenza Type B Antigen Negative (NEGATIVE) Urine Collection Type Unknown Urine Color Yellow Urine Clarity Clear Urine pH 7.5 (<5.0-8.0) Urine Specific [place] 1.015 (1.000-1.030) Urine Protein 30 mg/dL (NEG-TRACE) Urine Glucose (UA) Negative mg/dL (NEG) Urine Ketones (Stick) Negative mg/dL (NEG) Urine Blood Trace (NEG) Urine Nitrite Negative (NEG) Urine Bilirubin Negative (NEG) Urine Urobilinogen Dipstick 1.0 mg/dL (0.2 mg/dL) Urine Leukocyte Esterase Moderate (NEG) Urine RBC 1-2 /HPF (0-2) Urine WBC 11-20 /HPF (0-4) Urine Squamous Epithelial Cells Many /LPF Urine Bacteria Many /HPF (0-FEW) Glucose (Fingerstick) 133 mg/dL (70-99) Test 05/19/19 09:10 05/19/19 11:33 05/19/19 15:10 05/19/19 17:02 Heparin Anti-Xa Act, Unfractionated 0.94 IU/mL (0.30-0.70) Troponin I Quantitative 0.191 ng/mL (0.000-0.055) 0.144 ng/mL (0.000-0.055) Thyroid Stimulating Hormone (TSH) 1.190 uIU/mL (0.358-3.74) Glucose (Fingerstick) 189 mg/dL (70-99) 197 mg/dL (70-99) Test 05/19/19 21:27 05/20/19 06:00 05/20/19 07:30 05/20/19 11:00 Glucose (Fingerstick) 110 mg/dL (70-99) 97 mg/dL (70-99) 150 mg/dL (70-99) White Blood Count 8.0 x10^3/uL (4.0-11.0) Red Blood Count 4.30 x10^6/uL (3.50-5.40) Hemoglobin 9.4 g/dL (12.0-15.5) Hematocrit 30.9 % (36.0-47.0) Mean Corpuscular Volume 72 fL (79-100) Mean Corpuscular Hemoglobin 22 pg (25-35) Mean Corpuscular Hemoglobin Concent 31 g/dL (31-37) Red Cell Distribution Width 18.6 % (11.5-14.5) Platelet Count 297 x10^3/uL (140-400) Neutrophils (%) (Auto) 73 % (31-73) Lymphocytes (%) (Auto) 14 % (24-48) Monocytes (%) (Auto) 10 % (0-9) Eosinophils (%) (Auto) 2 % (0-3) Basophils (%) (Auto) 1 % (0-3) Neutrophils # (Auto) 5.8 x10^3/uL (1.8-7.7) Lymphocytes # (Auto) 1.1 x10^3/uL (1.0-4.8) Monocytes # (Auto) 0.8 x10^3/uL (0.0-1.1) Eosinophils # (Auto) 0.2 x10^3/uL (0.0-0.7) Basophils # (Auto) 0.1 x10^3/uL (0.0-0.2) Sodium Level 145 mmol/L (136-145) Potassium Level 4.0 mmol/L (3.5-5.1) Chloride Level 104 mmol/L (98-107) Carbon Dioxide Level 36 mmol/L (21-32) Anion Gap 5 (6-14) Blood Urea Nitrogen 21 mg/dL (7-20) Creatinine 1.2 mg/dL (0.6-1.0) Estimated GFR (Cockcroft-Gault) 43.6 BUN/Creatinine Ratio 18 (6-20) Glucose Level 88 mg/dL (70-99) Calcium Level 9.0 mg/dL (8.5-10.1) Total Bilirubin 0.9 mg/dL (0.2-1.0) Aspartate Amino Transf (AST/SGOT) 10 U/L (15-37) Alanine Aminotransferase (ALT/SGPT) 9 U/L (14-59) Alkaline Phosphatase 62 U/L (46-116) Total Protein 7.0 g/dL (6.4-8.2) Albumin 2.9 g/dL (3.4-5.0) Albumin/Globulin Ratio 0.7 (1.0-1.7) Laboratory Tests Test 05/19/19 15:10 05/19/19 17:02 05/19/19 21:27 05/20/19 06:00 Troponin I Quantitative 0.144 ng/mL (0.000-0.055) Glucose (Fingerstick) 197 mg/dL (70-99) 110 mg/dL (70-99) White Blood Count 8.0 x10^3/uL (4.0-11.0) Red Blood Count 4.30 x10^6/uL (3.50-5.40) Hemoglobin 9.4 g/dL (12.0-15.5) Hematocrit 30.9 % (36.0-47.0) Mean Corpuscular Volume 72 fL (79-100) Mean Corpuscular Hemoglobin 22 pg (25-35) Mean Corpuscular Hemoglobin Concent 31 g/dL (31-37) Red Cell Distribution Width 18.6 % (11.5-14.5) Platelet Count 297 x10^3/uL (140-400) Neutrophils (%) (Auto) 73 % (31-73) Lymphocytes (%) (Auto) 14 % (24-48) Monocytes (%) (Auto) 10 % (0-9) Eosinophils (%) (Auto) 2 % (0-3) Basophils (%) (Auto) 1 % (0-3) Neutrophils # (Auto) 5.8 x10^3/uL (1.8-7.7) Lymphocytes # (Auto) 1.1 x10^3/uL (1.0-4.8) Monocytes # (Auto) 0.8 x10^3/uL (0.0-1.1) Eosinophils # (Auto) 0.2 x10^3/uL (0.0-0.7) Basophils # (Auto) 0.1 x10^3/uL (0.0-0.2) Sodium Level 145 mmol/L (136-145) Potassium Level 4.0 mmol/L (3.5-5.1) Chloride Level 104 mmol/L (98-107) Carbon Dioxide Level 36 mmol/L (21-32) Anion Gap 5 (6-14) Blood Urea Nitrogen 21 mg/dL (7-20) Creatinine 1.2 mg/dL (0.6-1.0) Estimated GFR (Cockcroft-Gault) 43.6 BUN/Creatinine Ratio 18 (6-20) Glucose Level 88 mg/dL (70-99) Calcium Level 9.0 mg/dL (8.5-10.1) Total Bilirubin 0.9 mg/dL (0.2-1.0) Aspartate Amino Transf (AST/SGOT) 10 U/L (15-37) Alanine Aminotransferase (ALT/SGPT) 9 U/L (14-59) Alkaline Phosphatase 62 U/L (46-116) Total Protein 7.0 g/dL (6.4-8.2) Albumin 2.9 g/dL (3.4-5.0) Albumin/Globulin Ratio 0.7 (1.0-1.7) Test 05/20/19 07:30 05/20/19 11:00 Glucose (Fingerstick) 97 mg/dL (70-99) 150 mg/dL (70-99) Medications Current Medications Albuterol/ Ipratropium (Duoneb) 3 ml 1X ONCE NEB Last administered on 05/18/19at 22:00; Start 05/18/19 at 22:00; Stop 05/18/19 at 22:01; Status DC Levofloxacin/ Dextrose 150 ml @ 100 mls/hr 1X ONCE IV Last administered on 05/19/19at 05:34; Start 05/19/19 at 01:30; Stop 05/19/19 at 02:59; Status DC Ondansetron HCl (Zofran) 4 mg PRN Q8HRS PRN IV NAUSEA/VOMITING; Start 05/19/19 at 01:15; Stop 05/20/19 at 01:14; Status Cancel Acetaminophen (Tylenol) 650 mg PRN Q4HRS PRN PO FEVER; Start 05/19/19 at 01:15; Stop 05/20/19 at 09:45; Status DC Albuterol/ Ipratropium (Duoneb) 3 ml RTQID NEB Last administered on 05/19/19at 20:01; Start 05/19/19 at 08:00; Stop 05/20/19 at 09:45; Status DC Heparin Sodium (Porcine) (Heparin Sodium) 10,000 unit 1X ONCE IV Last administered on 05/19/19at 02:40; Start 05/19/19 at 02:30; Stop 05/19/19 at 02:31; Status DC Heparin Sodium/ Dextrose 250 ml @ 0 mls/hr CONT PRN IV PER PROTOCOL Last administered on 05/19/19at 02:42; Start 05/19/19 at 02:00; Stop 05/19/19 at 10:47; Status DC Heparin Sodium (Porcine) (Heparin Sodium) 3,800 unit PRN Q6HRS PRN IV FOR UFH LEVEL LESS THAN 0.2; Start 05/19/19 at 02:00; Stop 05/19/19 at 10:47; Status DC Heparin Sodium (Porcine) (Heparin Sodium) 1,900 unit PRN Q6HRS PRN IV FOR UFH LEVEL 0.2 - 0.29; Start 05/19/19 at 02:00; Stop 05/19/19 at 10:47; Status DC Info (Anti-Coagulation Monitoring By Pharmacy) 1 each PRN DAILY PRN MC SEE COMMENTS Last administered on 05/19/19at 05:00; Start 05/19/19 at 02:15; Stop 05/19/19 at 10:47; Status DC Furosemide (Lasix) 20 mg 1X ONCE IVP Last administered on 05/19/19at 10:58; Start 05/19/19 at 10:00; Stop 05/19/19 at 10:03; Status DC Levofloxacin/ Dextrose (Levaquin Per Pharmacy) 1 each PRN DAILY PRN MC SEE COMMENTS; Start 05/19/19 at 10:00 Levofloxacin/ Dextrose 100 ml @ 100 mls/hr Q24H IV Last administered on 05/20/19at 05:50; Start 05/20/19 at 06:00 Enoxaparin Sodium (Lovenox 30mg Syringe) 30 mg Q24H SQ ; Start 05/19/19 at 10:45; Status UNV Paroxetine HCl (Paxil) 20 mg DAILY PO Last administered on 05/20/19at 09:33; Start 05/19/19 at 12:00 Insulin Human Lispro (HumaLOG) 8 units TIDAC SQ Last administered on 05/19/19at 17:22; Start 05/19/19 at 11:30 Metformin HCl (Glucophage) 1,000 mg BIDWMEALS PO Last administered on 3/14/20at 08:00; Start 05/19/19 at 17:00 Losartan Potassium (Cozaar) 100 mg DAILY PO Last administered on 05/20/19 09:33; Start 05/19/19 at 12:00 Levothyroxine Sodium (Synthroid) 150 mcg DAILY06 PO Last administered on 05/20/19 05:50; Start 05/20/19 at 06:00 Insulin Glargine (Lantus Syringe) 24 unit QHS SQ Last administered on 05/19/19 22:14; Start 05/19/19 at 21:00 Furosemide (Lasix) 40 mg [id number] IVP Last administered on 05/20/19 09:00; Start 05/19/19 at 14:00 Carvedilol (Coreg) 6.25 mg BIDWMEALS PO Last administered on 05/20/19 08:00; Start 05/19/19 at 17:00 Atorvastatin Calcium (Lipitor) 10 mg QHS PO Last administered on 05/19/19 22:09; Start 05/19/19 at 21:00 Allopurinol (Zyloprim) 100 mg DAILY PO Last administered on 05/20/19 09:33; Start 05/19/19 at 12:00 Amlodipine Besylate (Norvasc) 5 mg DAILY PO Last administered on 05/20/19 09:33; Start 05/19/19 at 12:00 Aspirin (Raulito Aspirin) 325 mg [id number] PO Last administered on 05/20/19 09:33; Start 05/19/19 at 12:00 Ondansetron HCl (Zofran) 4 mg PRN Q6HRS PRN IVP NAUSEA/VOMITING; Start 05/19/19 at 10:45 Pantoprazole Sodium (Protonix) 40 mg DAILYAC PO Last administered on 05/20/19 09:33; Start 05/20/19 at 07:30 Enoxaparin Sodium (Lovenox 40mg Syringe) 40 mg Q12HR SQ Last administered on 05/20/19 09:33; Start 05/19/19 at 21:00 Gabapentin (Neurontin) 300 mg TID PO Last administered on 05/20/19 09:00; Start 05/19/19 at 21:00 Active Scripts Active Reported Vancomycin 750 Mg/150 Ml Bag (Vancomycin In Dextrose,Iso-Osm) 750 Mg/150 Ml Froz.piggy 750 Mg IV BID Potassium Chloride 20 Meq Tab.er.prt 20 Meq PO [id number] Piperacil-Tazobact 3.375 Gm Vl (Piperacillin Sodium/Tazobactam) 3.375 Gm Vial.port 3.375 Gm IV TID Amlodipine Besylate 5 Mg Tablet 5 Mg PO DAILY Levemir Flexpen (Insulin Detemir) 100 Unit/1 Ml Insuln.pen 38 Unit SQ HS Metformin Hcl 500 Mg Tablet 500 Mg PO BIDWMEALS Lovenox (Enoxaparin Sodium) 40 Mg/0.4 Ml Disp.syrin 120 Mg SQ BID Levothyroxine Sodium 175 Mcg Tablet 175 Mcg PO DAILYAC Gabapentin (Gabapentin) 300 Mg Capsule 300 Mg PO TID Aspirin 325 Mg Tablet 325 Mg PO DAILY08 Furosemide 40 Mg Tablet 40 Mg PO BID Hydrocodone-Apap 10-325 (Hydrocodone Bit/Acetaminophen) 1 Each Tablet 1 Each PO PRN Q4HRS Tylenol (Acetaminophen) 325 Mg Tablet 650 Mg PO PRN Q4HRS Humalog (Insulin Lispro) 100 Unit/1 Ml Cartridge 12 Unit SQ [id number] Humalog (Insulin Lispro) 100 Unit/1 Ml Cartridge 12 Unit SQ [id number] Humalog (Insulin Lispro) 100 Unit/1 Ml Cartridge 12 Unit SQ DAILY07 Lorazepam 1 Mg Tablet 1 Mg PO PRN QHS Vitals/I & O Vital Sign - Last 24 Hours 05/19/19 05/19/19 05/19/19 05/19/19 15:00 15:30 17:16 19:20 Temp 98.4 98.4 98.4 98.4 Pulse 95 95 85 Resp 18 20 B/P (MAP) 150/70 (96) 150/70 139/63 (88) Pulse Ox 94 98 92 O2 Delivery Nasal Cannula Nasal Cannula Nasal Cannula O2 Flow Rate 3.0 2.0 3.0 05/19/19 05/19/19 05/19/19 05/20/19 20:00 20:03 23:55 08:00 Temp 97.8 97.8 Pulse 79 85 Resp 20 B/P (MAP) 140/67 (91) 124/64 Pulse Ox 94 96 O2 Delivery Nasal Cannula Nasal Cannula Nasal Cannula O2 Flow Rate 2.5 2.0 3.0 05/20/19 05/20/19 05/20/19 05/20/19 08:00 09:33 09:33 11:00 Temp 97.8 97.8 Pulse 85 85 85 Resp 20 B/P (MAP) 124/64 124/64 124/64 (84) Pulse Ox 95 O2 Delivery Nasal Cannula Nasal Cannula O2 Flow Rate 2.5 3.0 05/20/19 05/20/19 11:39 11:39 Pulse Ox 97 98 O2 Delivery Nasal Cannula O2 Flow Rate 1.0 2.0 Intake and Output 05/19/19 05/19/19 05/20/19 15:00 23:00 07:00 Intake Total 560 ml 300 ml Output Total 550 ml Balance 10 ml 300 ml TERE ALLISON MD May 20, 2019 14:18
[2019-05-20 15:25] VITALS: BP 116/50
--- NOTE | 2019-05-20 16:46 | NUR ---
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 we are doin the best we can with paper and [employer]. Vinny El RN
[2019-05-20 19:20] VITALS: BP 106/45
[2019-05-20] MEDS ORDERED: IPRATRPIUM/ALBUTEROL 0.5/2.5MG 3 ML NEBU. NEB SCH (20:00)
[2019-05-20] MEDS: IPRATRPIUM/ALBUTEROL 0.5/2.5MG 3 ML NEBU. NEB SCH (20:33)
[2019-05-20] MEDS: ATORVASTATIN CALCIUM 10 MG TABLET. PO SCH (22:10)
[2019-05-20] MEDS: LACTOBACILLUS RHAMNOSUS GG 1 CAPSULE. PO SCH (22:10)
[2019-05-20] MEDS: INSULIN GLARGINE SYRINGE. SQ SCH (22:30)
[2019-05-20 23:11] VITALS: BP 107/44
[2019-05-21 03:40] VITALS: BP 132/62
[2019-05-21 07:00] VITALS: BP 107/53
[2019-05-21] MEDS: LEVOTHYROXINE 150 MCG TABLET PO SCH (07:04)
[2019-05-21 07:06] LABS: BASO # 0.1 x10^3/uL (0.0-0.2); BASO % 1 % (0-3); CALCIUM 8.4 mg/dL (8.5-10.1); CREATININE 1.6 mg/dL (0.6-1.0); EOS # 0.4 x10^3/uL (0.0-0.7); EOS % 4 % (0-3); GFR 31.3; HEMATOCRIT 29.7 % (36.0-47.0); LYMPH # 1.3 x10^3/uL (1.0-4.8); LYMPH % 14 % (24-48); MEAN CORPUSCULAR HEMOGLOBIN 22 pg (25-35); MEAN CORPUSCULAR HGB CONC 30 g/dL (31-37); MEAN CORPUSCULAR VOLUME 72 fL (79-100); MONO # 0.9 x10^3/uL (0.0-1.1); MONO % 10 % (0-9); NEUT # 6.7 x10^3/uL (1.8-7.7); NEUT % 71 % (31-73); PLATELET COUNT 282 x10^3/uL (140-400); RED BLOOD COUNT 4.15 x10^6/uL (3.50-5.40); RED CELL DISTRIBUTION WIDTH 18.6 % (11.5-14.5); WHITE BLOOD COUNT 9.4 x10^3/uL (4.0-11.0)
[2019-05-21] MEDS: INSULIN LISPRO 300 UNITS/3 ML VIAL. SQ SCH ×2 (07:30→11:30)
[2019-05-21] MEDS: IPRATRPIUM/ALBUTEROL 0.5/2.5MG 3 ML NEBU. NEB SCH ×2 (07:44→11:41)
[2019-05-21] MEDS: CARVEDILOL 6.25 MG TABLET. PO SCH (08:00)
[2019-05-21] MEDS: metFORMIN 500 MG TABLET PO SCH (08:36)
[2019-05-21] MEDS: LOSARTAN POTASSIUM 50 MG TABLET. PO SCH (08:36)
[2019-05-21] MEDS: GABAPENTIN 300 MG CAPSULE. PO SCH (08:37)
[2019-05-21] MEDS: ALLOPURINOL 100 MG TABLET. PO SCH (08:37)
[2019-05-21] MEDS: PARoxetine 20 MG TABLET PO SCH (08:37)
[2019-05-21] MEDS: ENOXAPARIN 40 MG/0.4 ML SYRINGE. SQ SCH (08:37)
[2019-05-21] MEDS: LACTOBACILLUS RHAMNOSUS GG 1 CAPSULE. PO SCH (08:38)
[2019-05-21] MEDS: amLODIPine BESYLATE 5 MG TABLET PO SCH (08:38)
[2019-05-21] MEDS: PANTOPRAZOLE 40 MG TABLET.DR. PO SCH (08:39)
[2019-05-21] MEDS: ASPIRIN 325 MG TABLET PO SCH (08:39)
[2019-05-21] MEDS ORDERED: FUROSEMIDE 40 MG/4 ML VIAL. IVP SCH (09:00)
--- NOTE | 2019-05-21 10:53 | PDOC ---
PROGRESS NOTES Subjective Subjective feels better.not short of breath. lab reviewed. discussed with RN. urine culture growing GNR and I and D pending Objective Objective Vital Signs Date Time Temp Pulse Resp B/P (MAP) Pulse Ox O2 Delivery O2 Flow Rate FiO2 05/21/19 08:38 77 107/53 05/21/19 08:00 Nasal Cannula 1.0 05/21/19 07:46 90 05/21/19 07:00 97.6 16 97.6 Intake and Output 05/21/19 07:00 Intake Total 1040 ml Balance 1040 ml Intake Oral 1040 ml # Voids 7 # Bowel Movements 1 Physical Exam Abdomen: Soft Heart: Regular rate, Normal S1, Normal S2 Extremities: Other (1 plus edema RLE and left BKA) General: Alert HEENT: Atraumatic, PERRLA Lungs: Clear to auscultation Neuro: Normal speech Psych/Mental Status: Mental status NL Skin: No rashes Assessment Assessment Problems1. Acute hypoxic respiratory failure, most likely secondary to bilateral pleural effusions and acute diastolic congestive heart failure. 2. Bilateral pleural effusions. 3. Acute diastolic congestive heart failure 4. Diabetes mellitus type 2, on insulin. 5. Hypertension. 6. Hyperlipidemia. 7. Hypothyroidism. 8. Obstructive sleep apnea. 9. History of a left total knee arthroplasty. 10. Anemia of chronic disease. GNR uti Medical Problems: (1) Elevated d-dimer Status: Acute (2) Hypoxia Status: Acute (3) Left lower lobe consolidation Status: Acute Plan Plan of Care continue levaquin switch to oral lasix final urine culture pending check RA oxygen sat rest and walking to see if she needs home oxygen Comment Review of Relevant I have reviewed the following items helio (where applicable) has been applied. Labs Laboratory Tests Test 05/19/19 11:33 05/19/19 15:10 05/19/19 17:02 05/19/19 21:27 Glucose (Fingerstick) 189 mg/dL (70-99) 197 mg/dL (70-99) 110 mg/dL (70-99) Troponin I Quantitative 0.144 ng/mL (0.000-0.055) Test 05/20/19 06:00 05/20/19 07:30 05/20/19 11:00 05/20/19 16:27 White Blood Count 8.0 x10^3/uL (4.0-11.0) Red Blood Count 4.30 x10^6/uL (3.50-5.40) Hemoglobin 9.4 g/dL (12.0-15.5) Hematocrit 30.9 % (36.0-47.0) Mean Corpuscular Volume 72 fL (79-100) Mean Corpuscular Hemoglobin 22 pg (25-35) Mean Corpuscular Hemoglobin Concent 31 g/dL (31-37) Red Cell Distribution Width 18.6 % (11.5-14.5) Platelet Count 297 x10^3/uL (140-400) Neutrophils (%) (Auto) 73 % (31-73) Lymphocytes (%) (Auto) 14 % (24-48) Monocytes (%) (Auto) 10 % (0-9) Eosinophils (%) (Auto) 2 % (0-3) Basophils (%) (Auto) 1 % (0-3) Neutrophils # (Auto) 5.8 x10^3/uL (1.8-7.7) Lymphocytes # (Auto) 1.1 x10^3/uL (1.0-4.8) Monocytes # (Auto) 0.8 x10^3/uL (0.0-1.1) Eosinophils # (Auto) 0.2 x10^3/uL (0.0-0.7) Basophils # (Auto) 0.1 x10^3/uL (0.0-0.2) Sodium Level 145 mmol/L (136-145) Potassium Level 4.0 mmol/L (3.5-5.1) Chloride Level 104 mmol/L (98-107) Carbon Dioxide Level 36 mmol/L (21-32) Anion Gap 5 (6-14) Blood Urea Nitrogen 21 mg/dL (7-20) Creatinine 1.2 mg/dL (0.6-1.0) Estimated GFR (Cockcroft-Gault) 43.6 BUN/Creatinine Ratio 18 (6-20) Glucose Level 88 mg/dL (70-99) Calcium Level 9.0 mg/dL (8.5-10.1) Total Bilirubin 0.9 mg/dL (0.2-1.0) Aspartate Amino Transf (AST/SGOT) 10 U/L (15-37) Alanine Aminotransferase (ALT/SGPT) 9 U/L (14-59) Alkaline Phosphatase 62 U/L (46-116) Total Protein 7.0 g/dL (6.4-8.2) Albumin 2.9 g/dL (3.4-5.0) Albumin/Globulin Ratio 0.7 (1.0-1.7) Glucose (Fingerstick) 97 mg/dL (70-99) 150 mg/dL (70-99) 124 mg/dL (70-99) Test 05/20/19 20:43 05/21/19 05:51 05/21/19 08:08 Glucose (Fingerstick) 86 mg/dL (70-99) 104 mg/dL (70-99) White Blood Count 9.4 x10^3/uL (4.0-11.0) Red Blood Count 4.15 x10^6/uL (3.50-5.40) Hemoglobin 9.0 g/dL (12.0-15.5) Hematocrit 29.7 % (36.0-47.0) Mean Corpuscular Volume 72 fL (79-100) Mean Corpuscular Hemoglobin 22 pg (25-35) Mean Corpuscular Hemoglobin Concent 30 g/dL (31-37) Red Cell Distribution Width 18.6 % (11.5-14.5) Platelet Count 282 x10^3/uL (140-400) Neutrophils (%) (Auto) 71 % (31-73) Lymphocytes (%) (Auto) 14 % (24-48) Monocytes (%) (Auto) 10 % (0-9) Eosinophils (%) (Auto) 4 % (0-3) Basophils (%) (Auto) 1 % (0-3) Neutrophils # (Auto) 6.7 x10^3/uL (1.8-7.7) Lymphocytes # (Auto) 1.3 x10^3/uL (1.0-4.8) Monocytes # (Auto) 0.9 x10^3/uL (0.0-1.1) Eosinophils # (Auto) 0.4 x10^3/uL (0.0-0.7) Basophils # (Auto) 0.1 x10^3/uL (0.0-0.2) Sodium Level 142 mmol/L (136-145) Potassium Level 4.0 mmol/L (3.5-5.1) Chloride Level 102 mmol/L (98-107) Carbon Dioxide Level 39 mmol/L (21-32) Anion Gap 1 (6-14) Blood Urea Nitrogen 31 mg/dL (7-20) Creatinine 1.6 mg/dL (0.6-1.0) Estimated GFR (Cockcroft-Gault) 31.3 Glucose Level 92 mg/dL (70-99) Calcium Level 8.4 mg/dL (8.5-10.1) Iron Level 15 ug/dL (50-170) Total Iron Binding Capacity 322 ug/dL (250-450) Iron Saturation 5 % (15-34) Ferritin 13 ng/mL (8-252) Laboratory Tests Test 05/20/19 11:00 05/20/19 16:27 05/20/19 20:43 05/21/19 05:51 Glucose (Fingerstick) 150 mg/dL (70-99) 124 mg/dL (70-99) 86 mg/dL (70-99) White Blood Count 9.4 x10^3/uL (4.0-11.0) Red Blood Count 4.15 x10^6/uL (3.50-5.40) Hemoglobin 9.0 g/dL (12.0-15.5) Hematocrit 29.7 % (36.0-47.0) Mean Corpuscular Volume 72 fL (79-100) Mean Corpuscular Hemoglobin 22 pg (25-35) Mean Corpuscular Hemoglobin Concent 30 g/dL (31-37) Red Cell Distribution Width 18.6 % (11.5-14.5) Platelet Count 282 x10^3/uL (140-400) Neutrophils (%) (Auto) 71 % (31-73) Lymphocytes (%) (Auto) 14 % (24-48) Monocytes (%) (Auto) 10 % (0-9) Eosinophils (%) (Auto) 4 % (0-3) Basophils (%) (Auto) 1 % (0-3) Neutrophils # (Auto) 6.7 x10^3/uL (1.8-7.7) Lymphocytes # (Auto) 1.3 x10^3/uL (1.0-4.8) Monocytes # (Auto) 0.9 x10^3/uL (0.0-1.1) Eosinophils # (Auto) 0.4 x10^3/uL (0.0-0.7) Basophils # (Auto) 0.1 x10^3/uL (0.0-0.2) Sodium Level 142 mmol/L (136-145) Potassium Level 4.0 mmol/L (3.5-5.1) Chloride Level 102 mmol/L (98-107) Carbon Dioxide Level 39 mmol/L (21-32) Anion Gap 1 (6-14) Blood Urea Nitrogen 31 mg/dL (7-20) Creatinine 1.6 mg/dL (0.6-1.0) Estimated GFR (Cockcroft-Gault) 31.3 Glucose Level 92 mg/dL (70-99) Calcium Level 8.4 mg/dL (8.5-10.1) Iron Level 15 ug/dL (50-170) Total Iron Binding Capacity 322 ug/dL (250-450) Iron Saturation 5 % (15-34) Ferritin 13 ng/mL (8-252) Test 05/21/19 08:08 Glucose (Fingerstick) 104 mg/dL (70-99) Microbiology 05/19/19 Urine Culture - Preliminary, Resulted 05/19/19 Urine Culture Result 1 (BIRGIT) - Preliminary, Resulted Medications Current Medications Albuterol/ Ipratropium (Duoneb) 3 ml 1X ONCE NEB Last administered on 05/18/19at 22:00; Start 05/18/19 at 22:00; Stop 05/18/19 at 22:01; Status DC Levofloxacin/ Dextrose 150 ml @ 100 mls/hr 1X ONCE IV Last administered on 05/19/19at 05:34; Start 05/19/19 at 01:30; Stop 05/19/19 at 02:59; Status DC Ondansetron HCl (Zofran) 4 mg PRN Q8HRS PRN IV NAUSEA/VOMITING; Start 05/19/19 at 01:15; Stop 05/20/19 at 01:14; Status Cancel Acetaminophen (Tylenol) 650 mg PRN Q4HRS PRN PO FEVER; Start 05/19/19 at 01:15; Stop 05/20/19 at 09:45; Status DC Albuterol/ Ipratropium (Duoneb) 3 ml RTQID NEB Last administered on 05/19/19at 20:01; Start 05/19/19 at 08:00; Stop 05/20/19 at 09:45; Status DC Heparin Sodium (Porcine) (Heparin Sodium) 10,000 unit 1X ONCE IV Last administered on 05/19/19at 02:40; Start 05/19/19 at 02:30; Stop 05/19/19 at 02:31; Status DC Heparin Sodium/ Dextrose 250 ml @ 0 mls/hr CONT PRN IV PER PROTOCOL Last administered on 05/19/19at 02:42; Start 05/19/19 at 02:00; Stop 05/19/19 at 10:47; Status DC Heparin Sodium (Porcine) (Heparin Sodium) 3,800 unit PRN Q6HRS PRN IV FOR UFH LEVEL LESS THAN 0.2; Start 05/19/19 at 02:00; Stop 05/19/19 at 10:47; Status DC Heparin Sodium (Porcine) (Heparin Sodium) 1,900 unit PRN Q6HRS PRN IV FOR UFH LEVEL 0.2 - 0.29; Start 05/19/19 at 02:00; Stop 05/19/19 at 10:47; Status DC Info (Anti-Coagulation Monitoring By Pharmacy) 1 each PRN DAILY PRN MC SEE COMMENTS Last administered on 05/19/19at 05:00; Start 05/19/19 at 02:15; Stop 05/19/19 at 10:47; Status DC Furosemide (Lasix) 20 mg 1X ONCE IVP Last administered on 05/19/19at 10:58; Start 05/19/19 at 10:00; Stop 05/19/19 at 10:03; Status DC Levofloxacin/ Dextrose (Levaquin Per Pharmacy) 1 each PRN DAILY PRN MC SEE COMMENTS; Start 05/19/19 at 10:00; Stop 05/20/19 at 14:13; Status DC Levofloxacin/ Dextrose 100 ml @ 100 mls/hr Q24H IV Last administered on 05/20/19at 05:50; Start 05/20/19 at 06:00; Stop 05/20/19 at 14:13; Status DC Enoxaparin Sodium (Lovenox 30mg Syringe) 30 mg Q24H SQ ; Start 05/19/19 at 10:45; Status UNV Paroxetine HCl (Paxil) 20 mg DAILY PO Last administered on 05/21/19 08:37; Start 05/19/19 at 12:00 Insulin Human Lispro (HumaLOG) 8 units TIDAC SQ Last administered on 05/20/19 16:30; Start 05/19/19 at 11:30 Metformin HCl (Glucophage) 1,000 mg BIDWMEALS PO Last administered on 05/21/19 08:36; Start 05/19/19 at 17:00 Losartan Potassium (Cozaar) 100 mg DAILY PO Last administered on 05/21/19 08:36; Start 05/19/19 at 12:00 Levothyroxine Sodium (Synthroid) 150 mcg DAILY06 PO Last administered on 05/21/19 07:04; Start 05/20/19 at 06:00 Insulin Glargine (Lantus Syringe) 24 unit QHS SQ Last administered on 05/20/19 22:30; Start 05/19/19 at 21:00 Furosemide (Lasix) 40 mg BID92 IVP Last administered on 05/20/19 09:00; Start 05/19/19 at 14:00; Stop 05/20/19 at 14:13; Status DC Carvedilol (Coreg) 6.25 mg BIDWMEALS PO Last administered on 05/20/19 17:00; Start 05/19/19 at 17:00 Atorvastatin Calcium (Lipitor) 10 mg QHS PO Last administered on 05/20/19 22:10; Start 05/19/19 at 21:00 Allopurinol (Zyloprim) 100 mg DAILY PO Last administered on 05/21/19 08:37; S tart 05/19/19 at 12:00 Amlodipine Besylate (Norvasc) 5 mg DAILY PO Last administered on 05/21/19 08:38; Start 05/19/19 at 12:00 Aspirin (Raulito Aspirin) 325 mg DAILYWBKFT PO Last administered on 05/21/19 08:39; Start 05/19/19 at 12:00 Ondansetron HCl (Zofran) 4 mg PRN Q6HRS PRN IVP NAUSEA/VOMITING; Start 05/19/19 at 10:45 Pantoprazole Sodium (Protonix) 40 mg DAILYAC PO Last administered on 05/21/19 08:39; Start 05/20/19 at 07:30 Enoxaparin Sodium (Lovenox 40mg Syringe) 40 mg Q12HR SQ Last administered on 05/21/19at 08:37; Start 05/19/19 at 21:00 Gabapentin (Neurontin) 300 mg TID PO Last administered on 05/21/19 08:37; Start 05/19/19 at 21:00 Furosemide (Lasix) 40 mg DAILY IVP Last administered on 05/21/19at 08:40; Start 05/21/19 at 09:00 Levofloxacin (Levaquin) 500 mg DAILY06 PO Last administered on 05/21/19 07:04; Start 05/21/19 at 06:00 Lactobacillus Rhamnosus (Culturelle) 1 cap BID PO Last administered on 05/21/19at 08:38; Start 05/20/19 at 21:00 Albuterol/ Ipratropium (Duoneb) 3 ml RTBID NEB ; Start 05/20/19 at 20:00; Stop 05/20/19 at 17:29; Status DC Albuterol/ Ipratropium (Duoneb) 3 ml RTQID NEB Last administered on 05/21/19at 07:44; Start 05/20/19 at 17:30 Active Scripts Active Reported Vancomycin 750 Mg/150 Ml Bag (Vancomycin In Dextrose,Iso-Osm) 750 Mg/150 Ml Froz.piggy 750 Mg IV BID Potassium Chloride 20 Meq Tab.er.prt 20 Meq PO BID66 Piperacil-Tazobact 3.375 Gm Vl (Piperacillin Sodium/Tazobactam) 3.375 Gm Vial.port 3.375 Gm IV TID Amlodipine Besylate 5 Mg Tablet 5 Mg PO DAILY Levemir Flexpen (Insulin Detemir) 100 Unit/1 Ml Insuln.pen 38 Unit SQ HS Metformin Hcl 500 Mg Tablet 500 Mg PO BIDWMEALS Lovenox (Enoxaparin Sodium) 40 Mg/0.4 Ml Disp.syrin 120 Mg SQ BID Levothyroxine Sodium 175 Mcg Tablet 175 Mcg PO DAILYAC Gabapentin (Gabapentin) 300 Mg Capsule 300 Mg PO TID Aspirin 325 Mg Tablet 325 Mg PO DAILY08 Furosemide 40 Mg Tablet 40 Mg PO BID Hydrocodone-Apap 10-325 (Hydrocodone Bit/Acetaminophen) 1 Each Tablet 1 Each PO PRN Q4HRS Tylenol (Acetaminophen) 325 Mg Tablet 650 Mg PO PRN Q4HRS Humalog (Insulin Lispro) 100 Unit/1 Ml Cartridge 12 Unit SQ DAILYBFRSUP Humalog (Insulin Lispro) 100 Unit/1 Ml Cartridge 12 Unit SQ DAILYBFRLUN Humalog (Insulin Lispro) 100 Unit/1 Ml Cartridge 12 Unit SQ DAILY07 Lorazepam 1 Mg Tablet 1 Mg PO PRN QHS Vitals/I & O Vital Sign - Last 24 Hours 05/20/19 05/20/19 05/20/19 05/20/19 11:00 11:39 11:39 15:25 Temp 97.8 98.3 97.8 98.3 Pulse 85 79 Resp 20 20 B/P (MAP) 124/64 (84) 116/50 (72) Pulse Ox 95 97 98 94 O2 Delivery Nasal Cannula Nasal Cannula Nasal Cannula O2 Flow Rate 3.0 1.0 2.0 3.0 05/20/19 05/20/19 05/20/19 05/20/19 16:35 17:00 19:20 20:33 Temp 98.2 98.2 Pulse 79 82 Resp 24 B/P (MAP) 116/50 106/45 (65) Pulse Ox 98 92 98 O2 Delivery Nasal Cannula Nasal Cannula Nasal Cannula O2 Flow Rate 1.0 3.0 1.0 05/20/19 05/20/19 05/21/19 05/21/19 22:10 23:11 03:40 07:00 Temp 98.3 98.2 97.6 98.3 98.2 97.6 Pulse 76 82 77 Resp 20 16 16 B/P (MAP) 107/44 (65) 132/62 (85) 107/53 (71) Pulse Ox 93 93 92 O2 Delivery Nasal Cannula Nasal Cannula Nasal Cannula Nasal Cannula O2 Flow Rate 2.5 3.0 3.0 3.0 05/21/19 05/21/19 05/21/19 05/21/19 07:46 08:00 08:00 08:36 Pulse 77 77 B/P (MAP) 107/53 107/53 Pulse Ox 90 O2 Delivery Room Air Nasal Cannula O2 Flow Rate 1.0 05/21/19 08:38 Pulse 77 B/P (MAP) 107/53 Intake and Output 05/20/19 05/20/19 05/21/19 15:00 23:00 07:00 Intake Total 250 ml 490 ml 300 ml Balance 250 ml 490 ml 300 ml TERE ALLISON MD May 21, 2019 10:53
[2019-05-21 11:00] VITALS: BP 123/58
[2019-05-21] MEDS ORDERED: LEVO500T59 PO (11:14)
[2019-05-21] MEDS ORDERED: ALLO100T PO (11:14)
[2019-05-21] MEDS ORDERED: FURO80TA3 PO (11:14)
[2019-05-21] MEDS ORDERED: CARV6.2511 PO (11:14)
[2019-05-21] MEDS ORDERED: ATOR10TA60 PO (11:14)
[2019-05-21] MEDS ORDERED: INSU100I11 SQ (11:14)
[2019-05-21] MEDS ORDERED: FERR325T72 PO (11:14)
[2019-05-21] MEDS ORDERED: INSU100V8 SQ (11:14)
[2019-05-21] MEDS ORDERED: LEVO150T PO (11:14)
[2019-05-21] MEDS ORDERED: PARO20TA3 PO (11:14)
[2019-05-21] MEDS ORDERED: LOSA-73 PO (11:14)
--- NOTE | 2019-05-21 11:16 | NUR ---
did a two minute walk with pt today while monitoring her saturations. she will need 2L oxygen her sats dropped to 85% while walking the unit. the dr has scribed home oxygen. pt stated that she has a concentrator but no tubing. will work with case management to get pt tubing to be used at home. Vinny El RN
--- NOTE | 2019-05-21 11:18 | SNU/HH DC ---
DISCHARGE WITH HOME HEALTH DISCHARGE INFORMATION: Discharge Date: May 21, 2019 Final Diagnosis: Problems acute diastolic chf. bilateral pleural effusions. acute hypoxic respiratory failure Medical Problems: (1) Elevated d-dimer Status: Acute (2) Hypoxia Status: Acute (3) Left lower lobe consolidation Status: Acute Condition on Discharge: Stable CODE STATUS: Code Status: Full HOME HEALTH: Face to Face: I certify this patient is under my care and that I, or a nurse practitioner or physician's lead recreation assistant working with me, had a face to face encounter that meets the physician face to face encounter requirements with this patient on [05/21/19]. Medical Complications: CHF RN For Eval/Treatment: Yes Occupational Therapy For: Evaluation/Treatment Speech Language Pathology For: Evaluation/Treatment Pt Meets Homebound Status: Fatigue w/ amb. POST DISCHARGE ORDERS: Activity Instructions for Disc: Activity as tolerated DIET AFTER DISCHARGE: ADA Wound/Incision Care: Change dressing, May get incision wet FOLLOW-UP: Follow up with: dr. allison in 1 to 2 weeks Additional Instructions: have home health draw BMP on wednesday05/23/[address] allison fax [phone] TREATMENT/EQUIPMENT ORDERS: Adaptive Equipment Issued: None CERTIFICATION STATEMENT: Certification Statement: Certification Statement: Based on the above finding, I certify that this patient is confined to the home and needs intermittent shelter care, physical therapy and/or speech therapy, or continues to need occupational therapy.~ This patient is under my care, and I have initiated the establishment of the plan of care.~ This patient will be followed by myself or a community physician who will periodically review the plan of care. Home Meds Active Scripts Levothyroxine Sodium (SYNTHROID) 150 Mcg Tablet, 150 MCG PO DAILY06 for hypothyroidism, #30 TAB Prov:TERE ALLISON MD 05/21/19 Levofloxacin (LEVAQUIN) 500 Mg Tablet, 0.5 TAB PO DAILY for uti for 5 Days, #3 TAB 0 Refills Prov:TERE ALLISON MD 05/21/19 Allopurinol (ALLOPURINOL) 100 Mg Tablet, 100 MG PO DAILY for chronic gout, #30 TAB Prov:TERE ALLISON MD 05/21/19 Insulin Lispro (HUMALOG) 100 Unit/1 Ml Insuln.pen, 8 UNITS SQ TIDAC for diabetes, #1 EACH Prov:TERE ALLISON MD 05/21/19 Insulin Glargine,Hum.rec.anlog (LANTUS) 100 Unit/1 Ml Vial, 24 UNIT SQ QHS for diabetes, #1 EACH Prov:TERE ALLISON MD 05/21/19 Furosemide (FUROSEMIDE) 80 Mg Tablet, 80 MG PO DAILY for chf and leg edema, #30 TAB Prov:TERE ALLISON MD 05/21/19 Paroxetine Hcl (PAROXETINE HCL) 20 Mg Tablet, 20 MG PO DAILY for depression, #30 TAB Prov:TERE ALLISON MD 05/21/19 Carvedilol (CARVEDILOL ) 6.25 Mg Tablet, 6.25 MG PO BIDWMEALS for HTN, #60 TAB Prov:TERE ALLISON MD 05/21/19 Losartan Potassium (COZAAR ) 50 Mg Tablet, 100 MG PO DAILY for HTN, #30 TAB Prov:TERE ALLISON MD 05/21/19 Atorvastatin Calcium (ATORVASTATIN CALCIUM) 10 Mg Tablet, 10 MG PO QHS for hyperlipidemia, #30 TAB Prov:TERE ALLISON MD 05/21/19 Ferrous Sulfate (FEOSOL) 325 Mg Tablet, 325 MG PO BID for iron deficiency anemia, #60 TAB Prov:TERE ALLISON MD 05/21/19 Reported Medications Gabapentin (GABAPENTIN ) 300 Mg Capsule, 300 MG PO TID, CAP 11/14/13 Aspirin (ASPIRIN) 325 Mg Tablet, 325 MG PO DAILY08 11/14/13 Acetaminophen (TYLENOL) 325 Mg Tablet, 650 MG PO PRN Q4HRS 05/19/13 Discontinued Reported Medications Vancomycin In Dextrose,Iso-Osm (VANCOMYCIN 750 MG/150 ML BAG) 750 Mg/150 Ml Froz.piggy, 750 MG IV BID 11/14/13 Potassium Chloride (POTASSIUM CHLORIDE) 20 Meq Tab.er.prt, 20 MEQ PO BID66, TAB.SR 11/14/13 Piperacillin Sodium/Tazobactam (PIPERACIL-TAZOBACT 3.375 GM VL) 3.375 Gm Vial.port, 3.375 GM IV TID 11/14/13 Amlodipine Besylate (AMLODIPINE BESYLATE) 5 Mg Tablet, 5 MG PO DAILY, TAB 11/14/13 Insulin Detemir (LEVEMIR FLEXPEN) 100 Unit/1 Ml Insuln.pen, 38 UNIT SQ HS 11/14/13 Metformin Hcl (METFORMIN HCL) 500 Mg Tablet, 500 MG PO BIDWMEALS for ANTI- DIABETIC, TAB 0 Refills 11/14/13 Enoxaparin Sodium (LOVENOX) 40 Mg/0.4 Ml Disp.syrin, 120 MG SQ BID 11/14/13 Levothyroxine Sodium (LEVOTHYROXINE SODIUM) 175 Mcg Tablet, 175 MCG PO DAILYAC for THYROID SUPPLEMENT, #30 TAB 0 Refills 11/14/13 Furosemide (FUROSEMIDE) 40 Mg Tablet, 40 MG PO BID, TAB 11/14/13 Hydrocodone Bit/Acetaminophen (HYDROCODONE-APAP 10325 ) 1 Each Tablet, 1 EACH PO PRN Q4HRS 05/19/13 Insulin Lispro (HUMALOG) 100 Unit/1 Ml Cartridge, 12 UNIT SQ DAILYBFRSUP 04/20/13 Insulin Lispro (HUMALOG) 100 Unit/1 Ml Cartridge, 12 UNIT SQ DAILYBFRLUN 04/20/13 Insulin Lispro (HUMALOG) 100 Unit/1 Ml Cartridge, 12 UNIT SQ DAILY07 04/20/13 Lorazepam (LORAZEPAM) 1 Mg Tablet, 1 MG PO PRN QHS 04/20/13 TERE ALLISON MD May 21, 2019 11:18
--- NOTE | 2019-05-21 11:25 | PDOC ---
Provider Note Provider Note discharge summary dictated # [id number] TERE ALLISON MD May 21, 2019 11:24
[2019-05-21] MEDS ORDERED: METF10007 PO (11:27)
--- NOTE | 2019-05-21 11:52 | PDOC ---
PULMONARY PROGRESS NOTES Subjective off 02, sob better, has occ cough, no cp Vitals Vital Signs Date Time Temp Pulse Resp B/P (MAP) Pulse Ox O2 Delivery O2 Flow Rate FiO2 05/21/19 11:43 Room Air 05/21/19 11:00 97.6 80 16 123/58 (79) 94 3.0 97.6 ROS: No Nausea General: Alert, Oriented X4 HEENT: Other (nc at perrl ) Lungs: Clear Cardiovascular: S1, S2 Abdomen: Soft, Non-tender Neuro Exam: Alert Extremities: No Edema Skin: Warm Labs Laboratory Tests Test 05/19/19 15:10 05/19/19 17:02 05/19/19 21:27 05/20/19 06:00 Troponin I Quantitative 0.144 ng/mL (0.000-0.055) Glucose (Fingerstick) 197 mg/dL (70-99) 110 mg/dL (70-99) White Blood Count 8.0 x10^3/uL (4.0-11.0) Red Blood Count 4.30 x10^6/uL (3.50-5.40) Hemoglobin 9.4 g/dL (12.0-15.5) Hematocrit 30.9 % (36.0-47.0) Mean Corpuscular Volume 72 fL (79-100) Mean Corpuscular Hemoglobin 22 pg (25-35) Mean Corpuscular Hemoglobin Concent 31 g/dL (31-37) Red Cell Distribution Width 18.6 % (11.5-14.5) Platelet Count 297 x10^3/uL (140-400) Neutrophils (%) (Auto) 73 % (31-73) Lymphocytes (%) (Auto) 14 % (24-48) Monocytes (%) (Auto) 10 % (0-9) Eosinophils (%) (Auto) 2 % (0-3) Basophils (%) (Auto) 1 % (0-3) Neutrophils # (Auto) 5.8 x10^3/uL (1.8-7.7) Lymphocytes # (Auto) 1.1 x10^3/uL (1.0-4.8) Monocytes # (Auto) 0.8 x10^3/uL (0.0-1.1) Eosinophils # (Auto) 0.2 x10^3/uL (0.0-0.7) Basophils # (Auto) 0.1 x10^3/uL (0.0-0.2) Sodium Level 145 mmol/L (136-145) Potassium Level 4.0 mmol/L (3.5-5.1) Chloride Level 104 mmol/L (98-107) Carbon Dioxide Level 36 mmol/L (21-32) Anion Gap 5 (6-14) Blood Urea Nitrogen 21 mg/dL (7-20) Creatinine 1.2 mg/dL (0.6-1.0) Estimated GFR (Cockcroft-Gault) 43.6 BUN/Creatinine Ratio 18 (6-20) Glucose Level 88 mg/dL (70-99) Calcium Level 9.0 mg/dL (8.5-10.1) Total Bilirubin 0.9 mg/dL (0.2-1.0) Aspartate Amino Transf (AST/SGOT) 10 U/L (15-37) Alanine Aminotransferase (ALT/SGPT) 9 U/L (14-59) Alkaline Phosphatase 62 U/L (46-116) Total Protein 7.0 g/dL (6.4-8.2) Albumin 2.9 g/dL (3.4-5.0) Albumin/Globulin Ratio 0.7 (1.0-1.7) Test 05/20/19 07:30 05/20/19 11:00 05/20/19 16:27 05/20/19 20:43 Glucose (Fingerstick) 97 mg/dL (70-99) 150 mg/dL (70-99) 124 mg/dL (70-99) 86 mg/dL (70-99) Test 05/21/19 05:51 05/21/19 08:08 05/21/19 11:45 White Blood Count 9.4 x10^3/uL (4.0-11.0) Red Blood Count 4.15 x10^6/uL (3.50-5.40) Hemoglobin 9.0 g/dL (12.0-15.5) Hematocrit 29.7 % (36.0-47.0) Mean Corpuscular Volume 72 fL (79-100) Mean Corpuscular Hemoglobin 22 pg (25-35) Mean Corpuscular Hemoglobin Concent 30 g/dL (31-37) Red Cell Distribution Width 18.6 % (11.5-14.5) Platelet Count 282 x10^3/uL (140-400) Neutrophils (%) (Auto) 71 % (31-73) Lymphocytes (%) (Auto) 14 % (24-48) Monocytes (%) (Auto) 10 % (0-9) Eosinophils (%) (Auto) 4 % (0-3) Basophils (%) (Auto) 1 % (0-3) Neutrophils # (Auto) 6.7 x10^3/uL (1.8-7.7) Lymphocytes # (Auto) 1.3 x10^3/uL (1.0-4.8) Monocytes # (Auto) 0.9 x10^3/uL (0.0-1.1) Eosinophils # (Auto) 0.4 x10^3/uL (0.0-0.7) Basophils # (Auto) 0.1 x10^3/uL (0.0-0.2) Sodium Level 142 mmol/L (136-145) Potassium Level 4.0 mmol/L (3.5-5.1) Chloride Level 102 mmol/L (98-107) Carbon Dioxide Level 39 mmol/L (21-32) Anion Gap 1 (6-14) Blood Urea Nitrogen 31 mg/dL (7-20) Creatinine 1.6 mg/dL (0.6-1.0) Estimated GFR (Cockcroft-Gault) 31.3 Glucose Level 92 mg/dL (70-99) Calcium Level 8.4 mg/dL (8.5-10.1) Iron Level 15 ug/dL (50-170) Total Iron Binding Capacity 322 ug/dL (250-450) Iron Saturation 5 % (15-34) Ferritin 13 ng/mL (8-252) Glucose (Fingerstick) 104 mg/dL (70-99) 103 mg/dL (70-99) Laboratory Tests Test 05/20/19 16:27 05/20/19 20:43 05/21/19 05:51 05/21/19 08:08 Glucose (Fingerstick) 124 mg/dL (70-99) 86 mg/dL (70-99) 104 mg/dL (70-99) White Blood Count 9.4 x10^3/uL (4.0-11.0) Red Blood Count 4.15 x10^6/uL (3.50-5.40) Hemoglobin 9.0 g/dL (12.0-15.5) Hematocrit 29.7 % (36.0-47.0) Mean Corpuscular Volume 72 fL (79-100) Mean Corpuscular Hemoglobin 22 pg (25-35) Mean Corpuscular Hemoglobin Concent 30 g/dL (31-37) Red Cell Distribution Width 18.6 % (11.5-14.5) Platelet Count 282 x10^3/uL (140-400) Neutrophils (%) (Auto) 71 % (31-73) Lymphocytes (%) (Auto) 14 % (24-48) Monocytes (%) (Auto) 10 % (0-9) Eosinophils (%) (Auto) 4 % (0-3) Basophils (%) (Auto) 1 % (0-3) Neutrophils # (Auto) 6.7 x10^3/uL (1.8-7.7) Lymphocytes # (Auto) 1.3 x10^3/uL (1.0-4.8) Monocytes # (Auto) 0.9 x10^3/uL (0.0-1.1) Eosinophils # (Auto) 0.4 x10^3/uL (0.0-0.7) Basophils # (Auto) 0.1 x10^3/uL (0.0-0.2) Sodium Level 142 mmol/L (136-145) Potassium Level 4.0 mmol/L (3.5-5.1) Chloride Level 102 mmol/L (98-107) Carbon Dioxide Level 39 mmol/L (21-32) Anion Gap 1 (6-14) Blood Urea Nitrogen 31 mg/dL (7-20) Creatinine 1.6 mg/dL (0.6-1.0) Estimated GFR (Cockcroft-Gault) 31.3 Glucose Level 92 mg/dL (70-99) Calcium Level 8.4 mg/dL (8.5-10.1) Iron Level 15 ug/dL (50-170) Total Iron Binding Capacity 322 ug/dL (250-450) Iron Saturation 5 % (15-34) Ferritin 13 ng/mL (8-252) Test 05/21/19 11:45 Glucose (Fingerstick) 103 mg/dL (70-99) Medications Active Scripts Medications Dose Route/Sig Max Daily Dose Days Date Category Vancomycin 750 Mg/150 Ml Bag (Vancomycin In Dextrose,Iso-Osm) 750 Mg/150 Ml Froz.piggy 750 Mg IV BID 11/14/13 Reported Potassium Chloride 20 Meq Tab.er.prt 20 Meq PO BID66 11/14/13 Reported Piperacil-Tazobact 3.375 Gm Vl (Piperacillin Sodium/Tazobactam) 3.375 Gm Vial.port 3.375 Gm IV TID 11/14/13 Reported Amlodipine Besylate 5 Mg Tablet 5 Mg PO DAILY 11/14/13 Reported Levemir Flexpen (Insulin Detemir) 100 Unit/1 Ml Insuln.pen 38 Unit SQ HS 11/14/13 Reported Metformin Hcl 500 Mg Tablet 500 Mg PO BIDWMEALS 11/14/13 Reported Lovenox (Enoxaparin Sodium) 40 Mg/0.4 Ml Disp.syrin 120 Mg SQ BID 11/14/13 Reported Levothyroxine Sodium 175 Mcg Tablet 175 Mcg PO DAILYAC 11/14/13 Reported Gabapentin (Gabapentin) 300 Mg Capsule 300 Mg PO TID 11/14/13 Reported Aspirin 325 Mg Tablet 325 Mg PO DAILY08 11/14/13 Reported Furosemide 40 Mg Tablet 40 Mg PO BID 11/14/13 Reported Hydrocodone-Apap 10-325 (Hydrocodone Bit/Acetaminophen) 1 Each Tablet 1 Each PO PRN Q4HRS 05/19/13 Reported Tylenol (Acetaminophen) 325 Mg Tablet 650 Mg PO PRN Q4HRS 05/19/13 Reported Humalog (Insulin Lispro) 100 Unit/1 Ml Cartridge 12 Unit SQ [id number] 04/20/13 Reported Humalog (Insulin Lispro) 100 Unit/1 Ml Cartridge 12 Unit SQ [id number] 04/20/13 Reported Humalog (Insulin Lispro) 100 Unit/1 Ml Cartridge 12 Unit SQ DAILY07 04/20/13 Reported Lorazepam 1 Mg Tablet 1 Mg PO PRN QHS 04/20/13 Reported Impression . IMPRESSION: 1. Acute hypoxic respiratory failure secondary to multifactorial etiologies including combination of fclya-ps-pajddvn right heart failure and acute bronchitis. 2. Abnormal D-dimer, which can be nonspecific finding. No evidence of pulmonary embolism by V/Q scan. Her venous Doppler of the right lower extremity was negative for deep venous thrombosis. 3. Bilateral pleural effusions, likely related to iwgaa-kg-[id number] right heart failure. 4. History of obstructive sleep apnea, on home CPAP along with oxygen. She likely has a component of obesity hypoventilation syndrome as well as her bicarbonate is chronically elevated. Plan . RECOMMENDATIONS: 1. Continue present oxygen to keep saturation 92 and above. 6 min walk, needs 02 2 lpm w activity 2. Would recommend p.r.n. Lasix. monitor k, cr 3. lovenox for DVT prophylaxis 4. Continue bronchodilators. 5. empiric antibiotics, for total of 7 days 6. use cpap + 02 during sleep. Discussed with pt and primary. home today HARVEY CHAMBERS MD May 21, 2019 11:52
--- NOTE | 2019-05-21 12:35 | PDOC ---
PROGRESS NOTES Subjective Subjective Patient seen and examined Objective Objective Vital Signs Date Time Temp Pulse Resp B/P (MAP) Pulse Ox O2 Delivery O2 Flow Rate FiO2 05/21/19 11:43 Room Air 05/21/19 11:00 97.6 80 16 123/58 (79) 94 3.0 97.6 Intake and Output 05/21/19 07:00 Intake Total 1040 ml Balance 1040 ml Intake Oral 1040 ml # Voids 7 # Bowel Movements 1 Physical Exam Abdomen: Normal bowel sounds Heart: Regular rate General: No acute distress Lungs: Other (slightly decreased breath sounds) Assessment Assessment Problems Medical Problems: (1) Elevated d-dimer Status: Acute (2) Hypoxia Status: Acute (3) Left lower lobe consolidation Status: Acute 1. Acute on chronic CHF with possible combined systolic/diastolic dysfunction. Clinically improved. ECHO with an EF of 50%. Continue medical treatment. 2. HTN: improved. 3. HLP 4. DM2 5. CKD3? 6. Hypothyroidism 7. UTI: per PCP 8. Hx of mild PAD and CT noted with coronary calcifications. Consider outpt ischemia testing. 9. Microcytic hypochromic anemia Comment Review of Relevant I have reviewed the following items helio (where applicable) has been applied. Labs Laboratory Tests Test 05/19/19 15:10 05/19/19 17:02 05/19/19 21:27 05/20/19 06:00 Troponin I Quantitative 0.144 ng/mL (0.000-0.055) Glucose (Fingerstick) 197 mg/dL (70-99) 110 mg/dL (70-99) White Blood Count 8.0 x10^3/uL (4.0-11.0) Red Blood Count 4.30 x10^6/uL (3.50-5.40) Hemoglobin 9.4 g/dL (12.0-15.5) Hematocrit 30.9 % (36.0-47.0) Mean Corpuscular Volume 72 fL (79-100) Mean Corpuscular Hemoglobin 22 pg (25-35) Mean Corpuscular Hemoglobin Concent 31 g/dL (31-37) Red Cell Distribution Width 18.6 % (11.5-14.5) Platelet Count 297 x10^3/uL (140-400) Neutrophils (%) (Auto) 73 % (31-73) Lymphocytes (%) (Auto) 14 % (24-48) Monocytes (%) (Auto) 10 % (0-9) Eosinophils (%) (Auto) 2 % (0-3) Basophils (%) (Auto) 1 % (0-3) Neutrophils # (Auto) 5.8 x10^3/uL (1.8-7.7) Lymphocytes # (Auto) 1.1 x10^3/uL (1.0-4.8) Monocytes # (Auto) 0.8 x10^3/uL (0.0-1.1) Eosinophils # (Auto) 0.2 x10^3/uL (0.0-0.7) Basophils # (Auto) 0.1 x10^3/uL (0.0-0.2) Sodium Level 145 mmol/L (136-145) Potassium Level 4.0 mmol/L (3.5-5.1) Chloride Level 104 mmol/L (98-107) Carbon Dioxide Level 36 mmol/L (21-32) Anion Gap 5 (6-14) Blood Urea Nitrogen 21 mg/dL (7-20) Creatinine 1.2 mg/dL (0.6-1.0) Estimated GFR (Cockcroft-Gault) 43.6 BUN/Creatinine Ratio 18 (6-20) Glucose Level 88 mg/dL (70-99) Calcium Level 9.0 mg/dL (8.5-10.1) Total Bilirubin 0.9 mg/dL (0.2-1.0) Aspartate Amino Transf (AST/SGOT) 10 U/L (15-37) Alanine Aminotransferase (ALT/SGPT) 9 U/L (14-59) Alkaline Phosphatase 62 U/L (46-116) Total Protein 7.0 g/dL (6.4-8.2) Albumin 2.9 g/dL (3.4-5.0) Albumin/Globulin Ratio 0.7 (1.0-1.7) Test 05/20/19 07:30 05/20/19 11:00 05/20/19 16:27 05/20/19 20:43 Glucose (Fingerstick) 97 mg/dL (70-99) 150 mg/dL (70-99) 124 mg/dL (70-99) 86 mg/dL (70-99) Test 05/21/19 05:51 05/21/19 08:08 05/21/19 11:45 White Blood Count 9.4 x10^3/uL (4.0-11.0) Red Blood Count 4.15 x10^6/uL (3.50-5.40) Hemoglobin 9.0 g/dL (12.0-15.5) Hematocrit 29.7 % (36.0-47.0) Mean Corpuscular Volume 72 fL (79-100) Mean Corpuscular Hemoglobin 22 pg (25-35) Mean Corpuscular Hemoglobin Concent 30 g/dL (31-37) Red Cell Distribution Width 18.6 % (11.5-14.5) Platelet Count 282 x10^3/uL (140-400) Neutrophils (%) (Auto) 71 % (31-73) Lymphocytes (%) (Auto) 14 % (24-48) Monocytes (%) (Auto) 10 % (0-9) Eosinophils (%) (Auto) 4 % (0-3) Basophils (%) (Auto) 1 % (0-3) Neutrophils # (Auto) 6.7 x10^3/uL (1.8-7.7) Lymphocytes # (Auto) 1.3 x10^3/uL (1.0-4.8) Monocytes # (Auto) 0.9 x10^3/uL (0.0-1.1) Eosinophils # (Auto) 0.4 x10^3/uL (0.0-0.7) Basophils # (Auto) 0.1 x10^3/uL (0.0-0.2) Sodium Level 142 mmol/L (136-145) Potassium Level 4.0 mmol/L (3.5-5.1) Chloride Level 102 mmol/L (98-107) Carbon Dioxide Level 39 mmol/L (21-32) Anion Gap 1 (6-14) Blood Urea Nitrogen 31 mg/dL (7-20) Creatinine 1.6 mg/dL (0.6-1.0) Estimated GFR (Cockcroft-Gault) 31.3 Glucose Level 92 mg/dL (70-99) Calcium Level 8.4 mg/dL (8.5-10.1) Iron Level 15 ug/dL (50-170) Total Iron Binding Capacity 322 ug/dL (250-450) Iron Saturation 5 % (15-34) Ferritin 13 ng/mL (8-252) Glucose (Fingerstick) 104 mg/dL (70-99) 103 mg/dL (70-99) Laboratory Tests Test 05/20/19 16:27 05/20/19 20:43 05/21/19 05:51 05/21/19 08:08 Glucose (Fingerstick) 124 mg/dL (70-99) 86 mg/dL (70-99) 104 mg/dL (70-99) White Blood Count 9.4 x10^3/uL (4.0-11.0) Red Blood Count 4.15 x10^6/uL (3.50-5.40) Hemoglobin 9.0 g/dL (12.0-15.5) Hematocrit 29.7 % (36.0-47.0) Mean Corpuscular Volume 72 fL (79-100) Mean Corpuscular Hemoglobin 22 pg (25-35) Mean Corpuscular Hemoglobin Concent 30 g/dL (31-37) Red Cell Distribution Width 18.6 % (11.5-14.5) Platelet Count 282 x10^3/uL (140-400) Neutrophils (%) (Auto) 71 % (31-73) Lymphocytes (%) (Auto) 14 % (24-48) Monocytes (%) (Auto) 10 % (0-9) Eosinophils (%) (Auto) 4 % (0-3) Basophils (%) (Auto) 1 % (0-3) Neutrophils # (Auto) 6.7 x10^3/uL (1.8-7.7) Lymphocytes # (Auto) 1.3 x10^3/uL (1.0-4.8) Monocytes # (Auto) 0.9 x10^3/uL (0.0-1.1) Eosinophils # (Auto) 0.4 x10^3/uL (0.0-0.7) Basophils # (Auto) 0.1 x10^3/uL (0.0-0.2) Sodium Level 142 mmol/L (136-145) Potassium Level 4.0 mmol/L (3.5-5.1) Chloride Level 102 mmol/L (98-107) Carbon Dioxide Level 39 mmol/L (21-32) Anion Gap 1 (6-14) Blood Urea Nitrogen 31 mg/dL (7-20) Creatinine 1.6 mg/dL (0.6-1.0) Estimated GFR (Cockcroft-Gault) 31.3 Glucose Level 92 mg/dL (70-99) Calcium Level 8.4 mg/dL (8.5-10.1) Iron Level 15 ug/dL (50-170) Total Iron Binding Capacity 322 ug/dL (250-450) Iron Saturation 5 % (15-34) Ferritin 13 ng/mL (8-252) Test 05/21/19 11:45 Glucose (Fingerstick) 103 mg/dL (70-99) Microbiology 05/19/19 Urine Culture - Preliminary, Resulted 05/19/19 Urine Culture Result 1 (BIRGIT) - Preliminary, Resulted Medications Current Medications Albuterol/ Ipratropium (Duoneb) 3 ml 1X ONCE NEB Last administered on 05/18/19at 22:00; Start 05/18/19 at 22:00; Stop 05/18/19 at 22:01; Status DC Levofloxacin/ Dextrose 150 ml @ 100 mls/hr 1X ONCE IV Last administered on 05/19/19at 05:34; Start 05/19/19 at 01:30; Stop 05/19/19 at 02:59; Status DC Ondansetron HCl (Zofran) 4 mg PRN Q8HRS PRN IV NAUSEA/VOMITING; Start 05/19/19 at 01:15; Stop 05/20/19 at 01:14; Status Cancel Acetaminophen (Tylenol) 650 mg PRN Q4HRS PRN PO FEVER; Start 05/19/19 at 01:15; Stop 05/20/19 at 09:45; Status DC Albuterol/ Ipratropium (Duoneb) 3 ml RTQID NEB Last administered on 05/19/19at 20:01; Start 05/19/19 at 08:00; Stop 05/20/19 at 09:45; Status DC Heparin Sodium (Porcine) (Heparin Sodium) 10,000 unit 1X ONCE IV Last administered on 05/19/19at 02:40; Start 05/19/19 at 02:30; Stop 05/19/19 at 02:31; Status DC Heparin Sodium/ Dextrose 250 ml @ 0 mls/hr CONT PRN IV PER PROTOCOL Last administered on 05/19/19at 02:42; Start 05/19/19 at 02:00; Stop 05/19/19 at 10:47; Status DC Heparin Sodium (Porcine) (Heparin Sodium) 3,800 unit PRN Q6HRS PRN IV FOR UFH LEVEL LESS THAN 0.2; Start 05/19/19 at 02:00; Stop 05/19/19 at 10:47; Status DC Heparin Sodium (Porcine) (Heparin Sodium) 1,900 unit PRN Q6HRS PRN IV FOR UFH LEVEL 0.2 - 0.29; Start 05/19/19 at 02:00; Stop 05/19/19 at 10:47; Status DC Info (Anti-Coagulation Monitoring By Pharmacy) 1 each PRN DAILY PRN MC SEE COMMENTS Last administered on 05/19/19at 05:00; Start 05/19/19 at 02:15; Stop 05/19/19 at 10:47; Status DC Furosemide (Lasix) 20 mg 1X ONCE IVP Last administered on 05/19/19at 10:58; Start 05/19/19 at 10:00; Stop 05/19/19 at 10:03; Status DC Levofloxacin/ Dextrose (Levaquin Per Pharmacy) 1 each PRN DAILY PRN MC SEE COMMENTS; Start 05/19/19 at 10:00; Stop 05/20/19 at 14:13; Status DC Levofloxacin/ Dextrose 100 ml @ 100 mls/hr Q24H IV Last administered on 05/20/19at 05:50; Start 05/20/19 at 06:00; Stop 05/20/19 at 14:13; Status DC Enoxaparin Sodium (Lovenox 30mg Syringe) 30 mg Q24H SQ ; Start 05/19/19 at 10:45; Status UNV Paroxetine HCl (Paxil) 20 mg DAILY PO Last administered on 05/21/19at 08:37; Start 05/19/19 at 12:00 Insulin Human Lispro (HumaLOG) 8 units TIDAC SQ Last administered on 05/20/19at 16:30; Start 05/19/19 at 11:30 Metformin HCl (Glucophage) 1,000 mg BIDWMEALS PO Last administered on 05/21/19at 08:36; Start 05/19/19 at 17:00 Losartan Potassium (Cozaar) 100 mg DAILY PO Last administered on 05/21/19 08:36; Start 05/19/19 at 12:00 Levothyroxine Sodium (Synthroid) 150 mcg DAILY06 PO Last administered on 05/21/19 07:04; Start 05/20/19 at 06:00 Insulin Glargine (Lantus Syringe) 24 unit QHS SQ Last administered on 05/20/19 22:30; Start 05/19/19 at 21:00 Furosemide (Lasix) 40 mg BID92 IVP Last administered on 05/20/19 09:00; Start 05/19/19 at 14:00; Stop 05/20/19 at 14:13; Status DC Carvedilol (Coreg) 6.25 mg BIDWMEALS PO Last administered on 05/20/19 17:00; Start 05/19/19 at 17:00 Atorvastatin Calcium (Lipitor) 10 mg QHS PO Last administered on 05/20/19at 22:10; Start 05/19/19 at 21:00 Allopurinol (Zyloprim) 100 mg DAILY PO Last administered on 05/21/19 08:37; Start 05/19/19 at 12:00 Amlodipine Besylate (Norvasc) 5 mg DAILY PO Last administered on 05/21/19at 08:38; Start 05/19/19 at 12:00; Stop 05/21/19 at 10:59; Status DC Aspirin (Raulito Aspirin) 325 mg DAILYWBKFT PO Last administered on 05/21/19at 08:39; Start 05/19/19 at 12:00 Ondansetron HCl (Zofran) 4 mg PRN Q6HRS PRN IVP NAUSEA/VOMITING; Start 05/19/19 at 10:45; Stop 05/21/19 at 10:59; Status DC Pantoprazole Sodium (Protonix) 40 mg DAILYAC PO Last administered on 05/21/19at 08:39; Start 05/20/19 at 07:30 Enoxaparin Sodium (Lovenox 40mg Syringe) 40 mg Q12HR SQ Last administered on 05/21/19at 08:37; Start 05/19/19 at 21:00; Stop 05/21/19 at 10:59; Status DC Gabapentin (Neurontin) 300 mg TID PO Last administered on 05/21/19at 08:37; Start 05/19/19 at 21:00 Furosemide (Lasix) 40 mg DAILY IVP Last administered on 05/21/19at 08:40; Start 05/21/19 at 09:00; Stop 05/21/19 at 10:59; Status DC Levofloxacin (Levaquin) 500 mg DAILY06 PO Last administered on 05/21/19at 07:04; Start 05/21/19 at 06:00; Stop 05/21/19 at 11:35; Status DC Lactobacillus Rhamnosus (Culturelle) 1 cap BID PO Last administered on 05/21/19at 08:38; Start 05/20/19 at 21:00 Albuterol/ Ipratropium (Duoneb) 3 ml RTBID NEB ; Start 05/20/19 at 20:00; Stop 05/20/19 at 17:29; Status DC Albuterol/ Ipratropium (Duoneb) 3 ml RTQID NEB Last administered on 05/21/19at 11:41; Start 05/20/19 at 17:30 Ferrous Sulfate (Feosol) 325 mg BIDWMEALS PO ; Start 05/21/19 at 17:00 Furosemide (Lasix) 80 mg DAILY PO ; Start 05/22/19 at 09:00 Levofloxacin (Levaquin) 250 mg DAILY06 PO ; Start 05/22/19 at 06:00 Active Scripts Active Metformin Hcl 1,000 Mg Tablet 1,000 Mg PO BIDWMEALS Synthroid (Levothyroxine Sodium) 150 Mcg Tablet 150 Mcg PO DAILY06 Levaquin (Levofloxacin) 500 Mg Tablet 0.5 Tab PO DAILY 5 Days Allopurinol 100 Mg Tablet 100 Mg PO DAILY Humalog (Insulin Lispro) 100 Unit/1 Ml Insuln.pen 8 Units SQ TIDAC Lantus (Insulin Glargine,Hum.rec.anlog) 100 Unit/1 Ml Vial 24 Unit SQ QHS Furosemide 80 Mg Tablet 80 Mg PO DAILY Paroxetine Hcl 20 Mg Tablet 20 Mg PO DAILY Carvedilol (Carvedilol) 6.25 Mg Tablet 6.25 Mg PO BIDWMEALS Cozaar (Losartan Potassium) 50 Mg Tablet 100 Mg PO DAILY Atorvastatin Calcium 10 Mg Tablet 10 Mg PO QHS Feosol (Ferrous Sulfate) 325 Mg Tablet 325 Mg PO BID Reported Gabapentin (Gabapentin) 300 Mg Capsule 300 Mg PO TID Aspirin 325 Mg Tablet 325 Mg PO DAILY08 Tylenol (Acetaminophen) 325 Mg Tablet 650 Mg PO PRN Q4HRS Vitals/I & O Vital Sign - Last 24 Hours 05/20/19 05/20/19 05/20/19 05/20/19 15:25 16:35 17:00 19:20 Temp 98.3 98.2 98.3 98.2 Pulse 79 79 82 Resp 20 24 B/P (MAP) 116/50 (72) 116/50 106/45 (65) Pulse Ox 94 98 92 O2 Delivery Nasal Cannula Nasal Cannula Nasal Cannula O2 Flow Rate 3.0 1.0 3.0 05/20/19 05/20/19 05/20/19 05/21/19 20:33 22:10 23:11 03:40 Temp 98.3 98.2 98.3 98.2 Pulse 76 82 Resp 20 16 B/P (MAP) 107/44 (65) 132/62 (85) Pulse Ox 98 93 93 O2 Delivery Nasal Cannula Nasal Cannula Nasal Cannula Nasal Cannula O2 Flow Rate 1.0 2.5 3.0 3.0 05/21/19 05/21/19 05/21/19 05/21/19 07:00 07:46 08:00 08:00 Temp 97.6 97.6 Pulse 77 77 Resp 16 B/P (MAP) 107/53 (71) 107/53 Pulse Ox 92 90 O2 Delivery Nasal Cannula Room Air Nasal Cannula O2 Flow Rate 3.0 1.0 05/21/19 05/21/19 05/21/19 05/21/19 08:36 08:38 11:00 11:43 Temp 97.6 97.6 Pulse 77 77 80 Resp 16 B/P (MAP) 107/53 107/53 123/58 (79) Pulse Ox 94 O2 Delivery Nasal Cannula Room Air O2 Flow Rate 3.0 Intake and Output 05/20/19 05/20/19 05/21/19 15:00 23:00 07:00 Intake Total 250 ml 490 ml 300 ml Balance 250 ml 490 ml 300 ml JOAQUIM LI MD May 21, 2019 12:35
--- NOTE | 2019-05-21 13:19 | NUR ---
pt was discharged home today with home health to contact her tomorrow. she was given scripts for medication and for oxygen for when walking. she was wheeled to the main entrance and picked up by her spouse and taken home. Ana notified the [employer] of the need for home health and the need for them to draw a BMP on wednesday for Dr Lara. Vinny El RN
[2019-05-21] MEDS ORDERED: FERROUS SULFATE 325 MG TABLET. PO SCH (17:00)
--- NOTE | 2019-05-21 21:07 | DS ---
DATE OF DISCHARGE: 05/21/2019 CONSULTANTS: Dr. Powers and Dr. Shankar. FINAL DIAGNOSES: 1. Acute hypoxic respiratory failure secondary to acute diastolic congestive heart failure. 2. Bilateral pleural effusions secondary to acute diastolic congestive heart failure. 3. Bilateral pleural effusions. 4. Diabetes mellitus type 2, on insulin. 5. Hypertension. 6. Hyperlipidemia. 7. Hypothyroidism. 8. Obstructive sleep apnea. 9. Morbid obesity. 10. 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 11. Iron deficiency anemia. 12. Gram-negative mekhi urinary tract infection. HOSPITAL COURSE: The patient is a 78-year-old morbidly obese white female with history of diabetes mellitus type 2, hypertension, hyperlipidemia, who has a left total knee arthroplasty with prosthesis, who has obstructive sleep apnea, admitted to [facility] Emergency Room on 05/19/2019 with 1-week history of shortness of breath and dry cough. She had some lower extremity edema. Her D-dimer was elevated at 1.14. She underwent a ventilation perfusion scan along, which showed low probability of a pulmonary embolus and she had a venous Doppler of the right leg, which was negative for deep vein thrombosis. Influenza screen was negative. She had some nausea and abdominal distention. A CAT scan of the abdomen and pelvis showed some bilateral pleural effusions that were small and also was otherwise unremarkable. Oxygen saturation was 77% on room air in the Emergency Room. She was started on oxygen per nasal cannula. A CAT scan of the chest without contrast showed bilateral pleural effusions. Her proBNP was elevated consistent with congestive heart failure. She received 20 mg of Lasix IV in the Emergency Room. She received 750 mg of Levaquin IV also in the Emergency Room, subsequently admitted to the hospital, seen by Dr. Shankar for Pulmonary, Dr. Powers for Cardiology. She received Lasix 40 mg IV b.i.d. The dose was decreased yesterday to 40 mg once a day and she will be switched back to her baseline furosemide of 80 mg p.o. daily at home. She still had some edema in the right leg. Oxygen saturation today was 88-90% on room air resting and then it dropped to 85% with walking with her walker. She has oxygen at home, but she will need some tubing to go along with that and she will be on oxygen 2 liters nasal cannula with walking. She was told to elevate her legs, adhere to a low salt diet. Her ferritin level was on the low side of normal and her iron level was low also. Ferritin was 13, which was on the low end of normal. Iron level was 15, TIBC was 322. BUN was 31, creatinine 1.6 and creatinine was 1.2 when she came in, probably secondary to intravascular volume depletion from the IV Lasix. She will be dismissed to home with oxygen 2 liters per nasal cannula with walking. She has an appointment to see me a week from this Wednesday in the office. An echocardiogram did show left ventricular ejection fraction of 50%. She will be dismissed on allopurinol 100 mg every day. Amlodipine was discontinued. Her systolic blood pressure is 107 today. She will also be dismissed on aspirin 325 mg every day, atorvastatin 10 mg at bedtime, carvedilol 6.25 mg b.i.d., furosemide 80 mg p.o. daily, gabapentin 300 mg t.i.d., Levothyroxine 150 mcg every day, 24 units of Lantus insulin at bedtime, and she is on NovoLog insulin 8 units before meals t.i.d., losartan 100 mg every day, metformin 1000 mg b.i.d., and since her heart failure is compensated we will continue on metformin, Myrbetriq 25 mcg every day, and Paxil 20 mg every day. She will be dismissed on Levaquin 250 mg every day for 5 days for Gram-negative mekhi urinary tract infection, identification and sensitivity pending, and ferrous sulfate 325 mg b.i.d., and she will be dismissed to home with home health for physical and occupational therapy and RN will see her, and she will be dismissed on a diabetic diet, avoid salty foods, and also have a BMP done on Wednesday05/23/2019 with results faxed to Dr. Lara's office, and she will avoid nonsteroidal anti-inflammatory drugs. Discontinue the amlodipine. TERE LARA MD DR: LAURA/los JOB#: [id number] / [id number]
[2019-05-22] MEDS ORDERED: FUROSEMIDE 80 MG TABLET. PO SCH (09:00)
== END 2019-05-21 13:23 | disposition home health service (06) | DRG 291 ==
LOC: ER 21:21 → 6 SOUTH 05-19 00:23
PROVIDERS: ADMIT Internal Medicine; ATTEND Internal Medicine
DX: I13.0 Hypertensive heart and chronic kidney disease with heart failure and stage 1 through stage 4 chronic kidney disease, or unspecified chronic kidney disease (principal); I50.31 Acute diastolic (congestive) heart failure; J96.01 Acute respiratory failure with hypoxia; N39.0 Urinary tract infection, site not specified; E66.2 Morbid (severe) obesity with alveolar hypoventilation; Z68.41 Body mass index [BMI] 40.0-44.9, adult; B96.89 Other specified bacterial agents as the cause of diseases classified elsewhere; D50.9 Iron deficiency anemia, unspecified; D63.8 Anemia in other chronic diseases classified elsewhere; E03.9 Hypothyroidism, unspecified; E11.22 Type 2 diabetes mellitus with diabetic chronic kidney disease; E11.3599 Type 2 diabetes mellitus with proliferative diabetic retinopathy without macular edema, unspecified eye; E78.5 Hyperlipidemia, unspecified; I50.82 Biventricular heart failure; J20.9 Acute bronchitis, unspecified; M1A.9XX0 Chronic gout, unspecified, without tophus (tophi); N18.9 Chronic kidney disease, unspecified; Z96.652 Presence of left artificial knee joint; F41.9 Anxiety disorder, unspecified; H26.9 Unspecified cataract; K21.9 Gastro-esophageal reflux disease without esophagitis; M19.90 Unspecified osteoarthritis, unspecified site; E11.51 Type 2 diabetes mellitus with diabetic peripheral angiopathy without gangrene; Z79.4 Long term (current) use of insulin; Z79.82 Long term (current) use of aspirin; Z79.899 Other long term (current) drug therapy; Z85.42 Personal history of malignant neoplasm of other parts of uterus; Z89.512 Acquired absence of left leg below knee; Z90.49 Acquired absence of other specified parts of digestive tract; Z90.710 Acquired absence of both cervix and uterus; Z99.81 Dependence on supplemental oxygen; Z87.01 Personal history of pneumonia (recurrent); Z88.8 Allergy status to other drugs, medicaments and biological substances
CPT/HCPCS: 36415; 71045; 71250; 74176; 78582; 80048; 80053; 81001; 82607; 82728; 82962; 83540; 83550; 83880; 84443; 84484; 85025; 85379; 85520; 87086; 87804; 93005; 93306; 93971; 94640; 94760; 96374; A9540; A9558; J1644; J1650; J1815; J1940; J1956; 97530; G0378

== ENCOUNTER → 2019-05-23 | Outpatient (CLI) | payer MEDICARE ==
[2019-05-21 11:00] VITALS: BP 123/58
[~2019-05-23] MED LIST changes: +ALLO100T PO; +ATOR10TA60 PO; +CARV6.2511 PO; +FERR325T72 PO; +FURO80TA3 PO; +INSU100I11 SQ; +LEVO150T PO; +LEVO500T59 PO; +LOSA-73 PO; +PARO20TA3 PO
[2019-05-23 11:41] LABS: CALCIUM 8.4 mg/dL (8.5-10.1); CREATININE 1.6 mg/dL (0.6-1.0); GFR 31.3; POTASSIUM 3.9 mmol/L (3.5-5.1)
== END | disposition home or self-care (01) ==
LOC: SPEC 10:47
PROVIDERS: ATTEND Internal Medicine
DX: E11.9 Type 2 diabetes mellitus without complications (principal); J91.8 Pleural effusion in other conditions classified elsewhere; J98.01 Acute bronchospasm; I50.31 Acute diastolic (congestive) heart failure
CPT/HCPCS: 36415; 80048

== ENCOUNTER → 2020-05-16 | Outpatient (CLI) | payer MEDICARE ==
[2020-05-13 11:00] VITALS: BP 121/51
[~2020-05-16] MED LIST changes: +AMLO-186 PO; -AMLO5TAB10 PO; +ASPI-630 PO; +FERR220S8 PO; +INSU100V35 SQ; +MERO500V24 IV; +METO25TA4 PO; +NYST15PO2 TP; +SENN1TAB50 PO
--- NOTE | 2020-05-16 16:16 | RAD ---
EXAM: Chest, 2 views. 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 COMPARISON: 05/07/2020 FINDINGS: 2 views of the chest are obtained. There is stable diffuse increased interstitial opacity i s no consolidation, pleural effusion or pneumothorax. There is a stable prominent cardiac silhouette. There is thoracic kyphosis. IMPRESSION: Stable diffuse increased interstitial opacity due to interstitial infiltrate or chronic i nterstitial changes. The consolidated infiltrate is seen. Electronically signed by: Brianna Dior MD (05/16/2020 4:14 PM) [id number]
== END ==
LOC: RAD 15:38
PROVIDERS: ATTEND Family Medicine
DX: Z11.0 Encounter for screening for intestinal infectious diseases (principal)
CPT/HCPCS: 71046

== ENCOUNTER → 2020-05-30 | Outpatient (CLI) | payer MEDICARE ==
[2020-05-13 11:00] VITALS: BP 121/51
--- NOTE | 2020-05-30 12:37 | RAD ---
US DPLX VENOUS EXTREMITY LOWER RT History: Reason: RT LEG PAIN/SWELLING / Spl. Instructions: / History: Recent cardiac catheter Comparison: None. Discussion: Multiple longitudinal and transverse high resolution real-time images of the venous system of right l ower extremity were obtained with color and Doppler sampling. Degraded evaluation of the calf veins due to patient body habitus. No definite thrombosis. The common femoral, superficial femoral, an popliteal veins are all patent. Large heterogeneous mass within the right inguinal region. No increased Doppler flow. The mass measur es 13.7 x 5.8 x 5.6 cm. Impression: 1. No evidence of deep vein thrombosis. 2. Large heterogeneous lesion within the right inguinal region, may relate to hematoma given recent history. Recommend short-term ultrasound follow-up. Alternatively, CT with contrast can further evalu ate. Electronically signed by: Migue Carnes DO (05/30/2020 12:34 PM) [id number]
== END ==
LOC: US 11:37
PROVIDERS: ATTEND Family Medicine
DX: R22.41 Localized swelling, mass and lump, right lower limb (principal)
CPT/HCPCS: 93971

== ENCOUNTER 2020-06-09 09:34 | Inpatient (IN) | payer MEDICARE ==
[~2020-06-09] VITALS: Ht 165.1 cm; Wt 131.1 kg
[~2020-06-09 09:34] MED LIST changes: +CEFD300C PO
--- NOTE | 2020-06-09 10:08 | RAD ---
AP chest. HISTORY: Altered mental status AP view was taken of the chest. Heart is upper normal in size. There is no definite left effusion. Th ere is minimal blunting of the right costophrenic angle possibly a small right effusion. There is wor sening right basilar infiltrates or atelectasis. IMPRESSION: 1. Possible small right effusion. 2. Worsening right base infiltrates or atelectasis. Electronically signed by: Serafin Cervantes MD (06/09/2020 10:06 AM) [id number]
--- NOTE | 2020-06-09 10:08 | RAD ---
CT Head W/O Contrast: History: Reason: altered mental status / Spl. Instructions: / History: Comparison: May 07, 2020 Axial images were obtained without contrast. There is moderate diffuse atrophy. There is no mass effect, extraaxial fluid collections or hydrocep halus. There is no gross bleed. Marked diffuse and subcortical white matter hypoattenuation is seen. There is no focal loss of sanders-white matter distinction to suggest acute ischemia, i.e. stroke. Impression: No acute findings. RS Compliance Statement: One or more of the following individualized dose reduction techniques were utilized for this examinat ion: 1. Automated exposure control 2. Adjustment of the mA and/or kV according to patient size 3. Use of iterative reconstruction technique Electronically signed by: Isaias Almazan III, MD (06/09/2020 10:05 AM) [facility]
--- NOTE | 2020-06-09 10:27 | PHYS DOC ---
Past Medical History Past Medical History: CHF, Diabetes-Type II, Hypertension, Hypothyroid, Other Additional Past Medical Histor: cpap at night for sleep apnea Past Surgical History: Appendectomy, Hysterectomy, Tonsillectomy, Other Additional Past Surgical Histo: patient reports bilateral toe amputations. LEFT BKA Smoking Status: Former Smoker Alcohol Use: None Drug Use: None General Adult EDM: Chief Complaint: ALTERED MENTAL STATUS HPI: HPI: Mae is a 79-year-old female with a history of diabetes, coronary artery disease, and multiple other comorbidities. She is currently a resident at [facility], where the staff found her with altered mental status this morning. They also have concerns for a large increase in her right extremity edema. Patient was hypertensive in the ambulance, 196/78, respiratory rate of 20, and an oral temperature of 97.3. She tested negative for Covid on June 03, 2020. HPI is limited per the patient's mental status. She is very somnolent, but does arouse to voice. Review of Systems: Review of Systems: Review of systems limited due to patient's altered mental status Heart Score: C/O Chest Pain: N/A Allergies: Allergies: Allergies Coded Allergies Type Severity Reaction Last Updated Verified lisinopril Allergy Severe THROAT, TONGUE SWELLING 11/16/13 Yes adhesive Allergy Intermediate TAPE-RED SKIN 11/16/13 Yes sertraline HCl Allergy Intermediate 11/16/13 Yes I S O L A T I O N *CONTACT* Allergy Unknown 05/13/20 Yes morphine Adverse Reaction Intermediate Nausea 11/16/13 Yes Physical Exam: PE: Constitutional: Well developed, obese, somnolent HENT: Normocephalic, atraumatic, dry mucous membranes Eyes: PERRL, EOMI, conjunctiva normal, no discharge Neck: Normal range of motion, no tenderness, supple Lungs & Thorax: No respiratory distress, equal chest rise and fall Abdomen: Soft, no tenderness Skin: Warm, dry, no erythema Back: No tenderness, no CVA tenderness Extremities: 3+ pitting edema on right extremity, edema extends from ankle up to level of the greater trochanter and cellulitis right lower extremity, left lower extremity amputation below the knee Neurologic: Arousable to voice and oriented X 3 upon repeated questioning, normal motor function, normal sensory function, no focal deficits noted, neurologic exam limited to patient's current altered mental status. Psychologic: Flat affect Current Patient Data: Labs: Laboratory Tests Test 06/09/20 09:45 Glucose (Fingerstick) 198 mg/dL (70-99) H EKG: EK06/09/2020, 0944 Heart rate: 71 bpm QRS: 120 ms QT: 440 ms QTc: 478 ms EKG shows sinus arrhythmia at 71 bpm, T wave inversions in V1, V2, lead I and lead aVL, no ST elevation noted Radiology/Procedures: Radiology/Procedures: PROCEDURE: CT HEAD WO CONTRAST CT Head W/O Contrast: History: Reason: altered mental status / Spl. Instructions: / History: Comparison: May 07, 2020 Axial images were obtained without contrast. There is moderate diffuse atrophy. There is no mass effect, extraaxial fluid collections or hydrocephalus. There is no gross bleed. Marked diffuse and subcortical white matter hypoattenuation is seen. There is no focal loss of sanders-white matter distinction to suggest acute ischemia, i.e. stroke. Impression: No acute findings. RS Compliance Statement: One or more of the following individualized dose reduction techniques were utilized for this examination: 1. Automated exposure control 2. Adjustment of the mA and/or kV according to patient size 3. Use of iterative reconstruction technique Electronically signed by: Isaias Almazan III, MD (06/09/2020 10:05 AM) [facility] PROCEDURE: PORTABLE CHEST 1V AP chest. HISTORY: Altered mental status AP view was taken of the chest. Heart is upper normal in size. There is no definite left effusion. There is minimal blunting of the right costophrenic angle possibly a small right effusion. There is worsening right basilar infiltrates or atelectasis. IMPRESSION: 1. Possible small right effusion. 2. Worsening right base infiltrates or atelectasis. Electronically signed by: Serafin Cervantes MD (06/09/2020 10:06 AM) [id number] Course & Med Decision Making: Course & Med Decision Making Pertinent Labs and Imaging studies reviewed. (See chart for details) [] Dragon Disclaimer: Dragon Disclaimer: This electronic medical record was generated, in whole or in part, using a voice recognition dictation system. Departure Departure Impression: Primary Impression: Acute exacerbation of CHF (congestive heart failure) Qualified Codes: I50.9 - Heart failure, unspecified Additional Impressions: Elevated troponin Altered mental status Qualified Codes: R41.82 - Altered mental status, unspecified Disposition: 09 ADMITTED INPT THIS HOSP Admitting Physician: Ramirez Lara Condition: GUARDED Referrals: RAMIREZ LARA MD (PCP) Critical Care Time Critical care time was 30 minutes which includes time at bedside, spent in discussion of patient's care with specialists and/or family members, with interpretation of laboratory and/or radiological studies and is exclusive of procedures. RAMIREZ MENON DO Jun 09, 2020 10:27
[2020-06-09 10:41] LABS: BASO # 0.1 x10^3/uL (0.0-0.2); BASO % 1 % (0-3); EOS # 0.1 x10^3/uL (0.0-0.7); EOS % 1 % (0-3); HEMATOCRIT 31.5 % (36.0-47.0); HEMOGLOBIN 9.9 g/dL (12.0-15.5); LYMPH # 0.9 x10^3/uL (1.0-4.8); LYMPH % 11 % (24-48); MEAN CORPUSCULAR HEMOGLOBIN 27 pg (25-35); MEAN CORPUSCULAR HGB CONC 31 g/dL (31-37); MEAN CORPUSCULAR VOLUME 87 fL (79-100); MONO # 0.5 x10^3/uL (0.0-1.1); MONO % 6 % (0-9); NEUT # 6.9 x10^3/uL (1.8-7.7); NEUT % 81 % (31-73); PLATELET COUNT 283 x10^3/uL (140-400); RED BLOOD COUNT 3.62 x10^6/uL (3.50-5.40); RED CELL DISTRIBUTION WIDTH 19.5 % (11.5-14.5); WHITE BLOOD COUNT 8.5 x10^3/uL (4.0-11.0)
[2020-06-09 10:47] LABS: CREATININE 1.7 mg/dL (0.6-1.0); GFR 29.1; POTASSIUM 5.1 mmol/L (3.5-5.1)
[2020-06-09 10:54] LABS: ALBUMIN 2.5 g/dL (3.4-5.0); ALBUMIN/GLOBULIN RATIO 0.5 (1.0-1.7); MAGNESIUM 2.6 mg/dL (1.8-2.4); TOTAL BILIRUBIN 0.6 mg/dL (0.2-1.0); TOTAL PROTEIN 7.5 g/dL (6.4-8.2)
[2020-06-09 11:01] LABS: CREATINE KINASE 28 U/L (26-192)
--- NOTE | 2020-06-09 11:21 | EKG ---
[facility] [address] [place] [address] Test Date: 2020-06-09 Test Time: 09:44:40 Pat Name: DIMAS REDMOND Department: Room: Gender: F Help Desk Assistant: : 1940 Requested By: TERE MENON Order Number: [id number] Reading MD: Measurements Intervals [place] Rate: 71 P: NM: QRS: 231 QRSD: 120 T: 132 QT: 440 QTc: 478 Interpretive Statements IRREGULAR RHYTHM, NO P-WAVE FOUND ABNORMAL RIGHT SUPERIOR AXIS DEVIATION RIGHT VENTRICULAR HYPERTROPHY QRS(T) CONTOUR ABNORMALITY CONSIDER ANTEROSEPTAL INFARCT CONSIDER HIGH LATERAL INFARCT CONSISTENT WITH INFERIOR INFARCT PROBABLY OLD ABNORMAL ECG RI6.02 No previous ECG available for comparison
[2020-06-09 11:22] LABS: BILIRUBIN,URINE NEGATIVE (NEG); CLARITY,URINE CLOUDY; COLOR,URINE YELLOW; NITRITE,URINE NEGATIVE (NEG); PROTEIN,URINE 30 mg/dL (NEG-TRACE); UROBILINOGEN,URINE 0.2 mg/dL (0.2 mg/dL)
[2020-06-09 11:42] LABS: RBC,URINE OCC /HPF (0-2)
[2020-06-09 11:43] LABS: BACTERIA,URINE FEW /HPF (0-FEW); WBC,URINE OCC /HPF (0-4)
--- NOTE | 2020-06-09 12:18 | RAD ---
Right lower extremity venous duplex study 06/09/2020 Clinical History: Right leg swelling and redness. Technique: Using a combination of real time ultrasound imaging and color-flow and pulse Doppler imagi ng techniques along with graded compression and augmentation, duplex evaluation of the deep venous sy stem of the right lower extremity was performed. Multiple images were obtained. Findings: Comparison study is dated 06/09/2020. There is no sonographic evidence of deep venous thrombosis involving the visualized deep venous struc tures of the right lower extremity. A hematoma is seen in the right inguinal region measures approximately 8 cm in greatest diameter. It appears decreased in size slightly since the previous study. Impression: There is no sonographic evidence of deep venous thrombosis involving the visualized deep venous structures of the right lower extremity. Electronically signed by: Aydin Melvin MD (06/09/2020 12:15 PM) [id number]
[2020-06-09] MEDS ORDERED: ASPIRIN RECTAL 300 MG SUPP. PR ONE (12:30)
[2020-06-09] MEDS ORDERED: BUMETANIDE 1 MG/4 ML VIAL. IV ONE (12:30)
[2020-06-09] MEDS ORDERED: DEXTROSE 50% 25 GM / 50ML DISP.SYRIN. IV PRN (13:15)
[2020-06-09 13:46] LABS: BASE EXCESS ABG 7 mmol/L (-3-3); HCO3 ABG 35 mmol/L (21-28); PO2 ABG 74 mmHg (65-108); SAT O2 ABG 93 % (92-99)
[2020-06-09 13:47] LABS: FIO2 ABG 32/3L NC; PCO2 ABG 71 mmHg (35-46)
[2020-06-09] MEDS ORDERED: FUROSEMIDE 40 MG/4 ML VIAL. IVP SCH (14:00)
[2020-06-09] MEDS ORDERED: BISACODYL 10 MG SUPP.RECT. PR PRN (14:00)
[2020-06-09] MEDS ORDERED: MEROPENEM 500 MG in IV NORMAL SALINE 50ML 50 ML IV SCH (14:00)
[2020-06-09] MEDS ORDERED: ACETAMINOPHEN 650 MG SUPP.RECT. PR PRN (14:00)
--- NOTE | 2020-06-09 14:25 | PDOC ---
Provider Note Date of Service: DATE: 06/09/20 TIME: 14:25 Provider Note history and physical dictated # [id number] Justifications for Admission Other Justification TERE ALLISON MD Jun 09, 2020 14:25
[2020-06-09] MEDS ORDERED: IV DEXTROSE 5 %-0.45 % NACL 1,000 ML IV SCH (14:30)
[2020-06-09] MEDS: FUROSEMIDE 40 MG/4 ML VIAL. IVP SCH (16:52)
[2020-06-09] MEDS ORDERED: INSULIN LISPRO 300 UNITS/3 ML VIAL. SQ SCH (17:00)
[2020-06-09] MEDS: INSULIN LISPRO 300 UNITS/3 ML VIAL. SQ SCH (17:00)
[2020-06-09 19:24] VITALS: BP 147/97
--- NOTE | 2020-06-09 19:34 | NUR ---
The patient, DIMAS REDMOND, 79 y/o, F admitted by TERE ALLISON MD, was given written information regarding hospital policies, unit procedures and contact persons. Pt placed on bipap at time of admit.
--- NOTE | 2020-06-09 20:07 | HP ---
ADMIT DATE: 06/09/2020 HISTORY OF PRESENT ILLNESS: The patient is a 79-year-old morbidly obese white female with history of diabetes mellitus type 2, with nephropathy, with chronic kidney disease stage 3 with a baseline serum creatinine of 1.5-1.7, who has hypertension, hyperlipidemia, obstructive sleep apnea, but CPAP noncompliant, mild peripheral arterial disease, coronary artery disease, hypothyroidism, chronic diastolic congestive heart failure, recently dismissed from [facility] on 06/04/2020 with cellulitis on right leg and a right groin hematoma following a previous cardiac catheterization earlier in 05/2020, who has chronic venous insufficiency of the right leg and a previous left below-knee amputation and was recently [facility] where she was cared for by another physician. The patient was sent to the [facility] Emergency Room today with altered mental status and increasing peripheral edema. The patient cannot give any type of history at all as she is obtunded. She opened her eyes, but did not talk to me. Her is in a chair next to her as I saw her in the Emergency Room. I discussed the case with the Emergency Room doctor also. She had an arterial blood gas done in the Emergency Room, showed a pH of 7.31, pCO2 of 71, and pO2 of 74 and 3 liters of oxygen per nasal cannula. Her white count was 8.5. Her BUN was 40 with creatinine of 1.7. Troponin level is increased at 0.910 and her proBNP was increased at 21,233. A chest x-ray was consistent with congestive heart failure. Venous Doppler of the right lower extremity was negative for deep vein thrombosis and a CAT scan of head showed no acute abnormality. She is therefore admitted for further evaluation of her acute on chronic diastolic congestive heart failure and severe metabolic encephalopathy, most likely secondary to CO2 narcosis from acute on chronic hypoxic and hypercarbic respiratory failure. She will be started on BiPAP and then, she will be admitted to the telemetry unit. ALLERGIES AND INTOLERANCES: INCLUDE SERTRALINE, MORPHINE, LISINOPRIL, ADHESIVE. MEDICATIONS: Include amlodipine 2.5 mg every day, cefdinir 300 mg b.i.d., Lantus insulin 14 units at bedtime, Humalog insulin 6 units before meals t.i.d. as long as the blood sugars 90 or higher before the meals, Zyvox 600 mg b.i.d., potassium chloride 20 mEq every day, Tylenol 650 mg every 4 hours p.r.n., allopurinol 100 mg every day, aspirin 81 mg every day, atorvastatin 10 mg at bedtime, furosemide 40 mg every day, gabapentin 300 mg b.i.d., levothyroxine 150 mcg every day, metoprolol tartrate 25 mg b.i.d., nystatin powder applied b.i.d., Paxil 20 mg every day, Senokot-S 2 tablets every day. I believe she is on ferrous sulfate 325 mg every other day. PAST MEDICAL HISTORY: Significant for the recent hospitalization from [facility] with a right groin hematoma following a cardiac catheterization, cellulitis in right leg, chronic venous insufficiency of the right leg, and mild peripheral arterial disease. She was seen by vascular surgeon who felt that she had mild peripheral arterial disease. She was treated with IV antibiotics and dismissed on oral antibiotics for cellulitis in the right leg. 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 She also has some mild peripheral arterial disease, coronary artery disease, obstructive sleep apnea, CPAP, noncompliant acute blood loss anemia, morbid obesity, coronary artery disease, hypertension, hyperlipidemia, hypothyroidism, chronic diastolic congestive heart failure, and debility. 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 She has had an ESBL E. coli urinary tract infection, recently treated with meropenem. She also had a right groin hematoma, which was quite large, seen by the Vascular Surgery, who felt she did not require any surgical intervention. This followed a cardiac catheterization that she had in early 05/2020, which showed 65% obstruction of the left anterior descending coronary artery, left anterior descending coronary, which was felt physiologically insignificant and chronic 100% total occlusion of the distal left of the obtuse marginal branch, of the distal left circumflex, which had collateral flow from the left side. She also has a previous history of metabolic encephalopathy in the past, also due to hypercapnia and due to respiratory failure with obesity hypoventilation syndrome and obstructive sleep apnea, CPAP noncompliant. She had an echocardiogram, which showed a left ventricular ejection fraction of 50%. SOCIAL HISTORY: She does not drink alcohol nor does she smoke cigarettes. She is . She did use a walker with her left lower extremity prosthesis. REVIEW OF SYSTEMS: Unobtainable as the patient is obtunded. FAMILY HISTORY: Noncontributory. PHYSICAL EXAMINATION: VITAL SIGNS: Temperature is 98 degrees, heart rate 65, respiratory rate 29, blood pressure 154/73, oxygen saturation 90% on 3 liters per nasal cannula. HEENT She opened up her eyes and closed it, did not verbalize any questions. NECK: She has some expiratory wheezes in the upper airway. No stridor. HEART: Reveals an S1, S2. There is no S3 or murmur. LUNGS: Reveal clear, but the expiratory wheezes were coming more from the neck area. She has decreased breath sounds anteriorly. ABDOMEN: Obese and soft, nontender. EXTREMITIES: Lower extremity has got a left below-knee amputation stump. Right lower extremity, she has got 2+ edema involving the right lower extremity and also edema in the right thigh. She also has 2+ edema in the upper extremities also and also has abdominal wall edema. Her left below-knee amputation stump site looks fine. NEUROLOGIC: As mentioned, she is obtunded, did not follow any commands, does not verbalize. SKIN: On examination of skin, she does have some redness involving the right calf and pretibial area, slightly in the distal right thigh, redness is improved. She is missing two toes of the right foot. Right foot is not red. She has some sloughing of the skin in the right lower extremity. She has had that before. DIAGNOSTIC DATA: EKG was done, but I cannot find the report in the chart. Electrocardiogram shows lead displacement and leads I and AVR are completely in the wrong position, but it did show normal sinus rhythm with premature atrial contraction in the lead, which is totally wrong. EKG will have to be repeated. She did have imaging studies done. The venous Doppler of the right lower extremity was negative for deep vein thrombosis. She had a head CT without contrast, showed no acute abnormality and she had a chest x-ray done, which was consistent with possible small right pleural effusion and worsening right base infiltrate and atelectasis. ASSESSMENT: 1. Acute on chronic diastolic congestive heart failure. 2. Metabolic encephalopathy secondary to CO2 narcosis. 3. Acute on chronic hypoxic and hypercarbic respiratory failure. 4. Obstructive sleep apnea, CPAP noncompliant. 5. Suspected obesity hypoventilation syndrome. 6. Anasarca due to congestive heart failure. 7. Chronic kidney disease stage 3. 8. Diabetes mellitus type 2, on insulin with nephropathy and peripheral neuropathy. 9. Coronary artery disease. 10. Hypertension. 11. Hyperlipidemia. 12. Recent cellulitis of right leg. 13. Morbid obesity. 14. Recent right groin hematoma following a cardiac catheterization and there was a large hematoma. 15. Mild peripheral arterial disease. 16. History of a left below-knee amputation. 17. Severe protein-calorie malnutrition. 18. Anemia of chronic disease. Her blood gas showed a pH 7.31, pCO2 of 71 and a pO2 of 74. PLAN: At this time is to consult Dr. Powers for Cardiology and Dr. Lopez for Pulmonary. We will order BiPAP and repeat the blood gas 30 minutes later. I discussed the case with the accepting nurse on the telemetry unit where we will be placing her. We will get a CBC and BMP tomorrow, order Lasix 80 mg IV every 12 hours, place a Cifuentes catheter, follow her intake and output. She is not drinking anything and probably we have to put her on a gentleman amount of IV fluids. She did receive Bumex 1 mg IV in the Emergency Room I see. We will start her on Zyvox and meropenem for cellulitis in right leg and obtain a consult by the Infectious Disease doctor. We have to hold off on any anticoagulation due to the large right groin hematoma following a cardiac catheterization, so I have to hold off on subcutaneous Lovenox or heparin to help prevent a DVT. We will hold off on SCDs also as she has had cellulitis in the right leg and we will order Tubigrips. She will be n.p.o. We will give her some IV Pepcid to help prevent stress ulcer. We will put her on insulin sliding scale, low dose starting with a blood sugar of 150. When she is alert enough, we can put her on a diabetic cardiac diet. TERE ALLISON MD DR: LAURA/los JOB#: [id number] / [id number]
[2020-06-09] MEDS: MEROPENEM 500 MG in IV NORMAL SALINE 50ML 50 ML IV SCH (20:37)
[2020-06-09 21:40] LABS: BASE EXCESS ABG 13 mmol/L (-3-3); HCO3 ABG 40 mmol/L (21-28); PO2 ABG 70 mmHg (65-108); SAT O2 ABG 93 % (92-99)
[2020-06-09 21:45] LABS: PCO2 ABG 68 mmHg (35-46)
[2020-06-09 21:46] LABS: FIO2 ABG 35 (Bipap)
[2020-06-09 22:42] VITALS: BP 141/54
[2020-06-10] MEDS ORDERED: IV DEXTROSE 5 %-0.45 % NACL 1,000 ML IV PRN (02:00)
[2020-06-10] MEDS: MEROPENEM 500 MG in IV NORMAL SALINE 50ML 50 ML IV SCH (02:04)
[2020-06-10] MEDS ORDERED: C.DIFF MED SCREEN BY RX. MC ONE (02:45)
--- NOTE | 2020-06-10 02:50 | NUR ---
Pharmacy Medication Review S: Consulted for medication review re: C.diff Risk Assessment score of 6 O: DIMAS REDMOND is a 79 year old with: Previous C.diff infection: No Previous hospitalization: Within 30 days Recent antibiotics: Within 30 days Use of gastric acid suppressor: No Transfer from [facility]: Yes Current antibiotic regimen: MEROPENEM, LINEZOLID Current acid suppression regimen: NONE A: Patient has been identified as having risk factors for C.diff infection as noted above. P: ABX DE-ESCALATION RECOMMENDED: NO, PT HAS CELLULITIS. ON ABX, TO BE SEEN BY ID PROBIOTIC ORDERED: YES PPI CHANGED TO [id number]: NOT ON SIMONA TINEO [facility], 06/10/20 0257
[2020-06-10 03:09] VITALS: BP 179/91
--- NOTE | 2020-06-10 03:37 | NUR ---
at 1909 and 2004 on 06/09, this R/N called Dr. Lara to discuss patient's intolerance of bipap. She has removed her face mask at least 11 times, witnessed by this RN in the first hour of the shift, possibly more times that other staff assisted with. Dr. Lara ordered soft wrist restraints but no sedation d/t CO2 retaining. Stat ABG obtained to confirm continued need for bipap. Dr. Lara paged a second time and ativan ivp orders obtained and given per MAY. Addendum: 06/10/20 at 0342 by ROCKY LUIS RN Repositioning and skin and pulse integrity confirmed Q2hrs throughout time of soft wrist restraints, will continue to monitor. Patient was able to grab bipap hose, line set with restrained hand and removed tubing from mask. Restraint shortened, hosing kept away from patient's hands with use of available equipment like tape and tongue depressor.
[2020-06-10 05:30] LABS: BASO # 0.1 x10^3/uL (0.0-0.2); BASO % 1 % (0-3); EOS # 0.1 x10^3/uL (0.0-0.7); EOS % 1 % (0-3); LYMPH # 0.6 x10^3/uL (1.0-4.8); LYMPH % 10 % (24-48); MEAN CORPUSCULAR HEMOGLOBIN 27 pg (25-35); MEAN CORPUSCULAR HGB CONC 31 g/dL (31-37); MEAN CORPUSCULAR VOLUME 86 fL (79-100); MONO # 0.4 x10^3/uL (0.0-1.1); MONO % 7 % (0-9); NEUT # 5.3 x10^3/uL (1.8-7.7); NEUT % 81 % (31-73); PLATELET COUNT 250 x10^3/uL (140-400); RED BLOOD COUNT 3.37 x10^6/uL (3.50-5.40); RED CELL DISTRIBUTION WIDTH 18.8 % (11.5-14.5); WHITE BLOOD COUNT 6.5 x10^3/uL (4.0-11.0)
[2020-06-10 05:49] LABS: CALCIUM 8.4 mg/dL (8.5-10.1); CREATININE 1.5 mg/dL (0.6-1.0); GFR 33.6; POTASSIUM 4.5 mmol/L (3.5-5.1)
[2020-06-10 07:30] VITALS: BP 183/88
[2020-06-10] MEDS ORDERED: hydrALAZINE 20 MG/ML VIAL. IVP PRN (08:00)
[2020-06-10] MEDS: INSULIN LISPRO 300 UNITS/3 ML VIAL. SQ SCH ×3 (08:00→17:26)
--- NOTE | 2020-06-10 08:12 | PDOC ---
Infectious Disease Note Subjective Subjective pt is back with sob, on bipap now, in chf no fever, no n/v/d/ ROS ROS as above Vital Sign Vital Signs Vital Signs Date Time Temp Pulse Resp B/P (MAP) Pulse Ox O2 Delivery O2 Flow Rate FiO2 06/10/20 07:30 97.0 73 24 183/88 (119) 97 BiPAP/CPAP 97.0 06/09/20 16:41 3.0 Physical Exam PHYSICAL EXAM GENERAL: Propped up in bed, alert, mod distress. HEENT: Normal conjunctivae. Oropharynx pink, moist, no lesions seen. NECK: Supple. LUNGS: Clear to auscultation. No accessory muscle use. HEART: Normal S1 and S2. ABDOMEN: Obese, soft, nontender with bowel sounds. EXTREMITIES: Previous left BKA unremarkable. Right leg edema, erythema, much improved Dressing and Tubigrip stocking in place. SKIN: Warm to touch. No signs of generalized rash. NEUROLOGIC: Alert and answering questions appropriately. PIV Labs Lab Laboratory Tests Test 06/09/20 09:45 06/09/20 10:19 06/09/20 11:18 06/09/20 12:46 Glucose (Fingerstick) 198 mg/dL (70-99) White Blood Count 8.5 x10^3/uL (4.0-11.0) Red Blood Count 3.62 x10^6/uL (3.50-5.40) Hemoglobin 9.9 g/dL (12.0-15.5) Hematocrit 31.5 % (36.0-47.0) Mean Corpuscular Volume 87 fL (79-100) Mean Corpuscular Hemoglobin 27 pg (25-35) Mean Corpuscular Hemoglobin Concent 31 g/dL (31-37) Red Cell Distribution Width 19.5 % (11.5-14.5) Platelet Count 283 x10^3/uL (140-400) Neutrophils (%) (Auto) 81 % (31-73) Lymphocytes (%) (Auto) 11 % (24-48) Monocytes (%) (Auto) 6 % (0-9) Eosinophils (%) (Auto) 1 % (0-3) Basophils (%) (Auto) 1 % (0-3) Neutrophils # (Auto) 6.9 x10^3/uL (1.8-7.7) Lymphocytes # (Auto) 0.9 x10^3/uL (1.0-4.8) Monocytes # (Auto) 0.5 x10^3/uL (0.0-1.1) Eosinophils # (Auto) 0.1 x10^3/uL (0.0-0.7) Basophils # (Auto) 0.1 x10^3/uL (0.0-0.2) Sodium Level 144 mmol/L (136-145) Potassium Level 5.1 mmol/L (3.5-5.1) Chloride Level 104 mmol/L (98-107) Carbon Dioxide Level 36 mmol/L (21-32) Anion Gap 4 (6-14) Blood Urea Nitrogen 40 mg/dL (7-20) Creatinine 1.7 mg/dL (0.6-1.0) Estimated GFR (Cockcroft-Gault) 29.1 BUN/Creatinine Ratio 24 (6-20) Glucose Level 200 mg/dL (70-99) Lactic Acid Level 1.2 mmol/L (0.4-2.0) Calcium Level 9.0 mg/dL (8.5-10.1) Magnesium Level 2.6 mg/dL (1.8-2.4) Total Bilirubin 0.6 mg/dL (0.2-1.0) Aspartate Amino Transf (AST/SGOT) 16 U/L (15-37) Alanine Aminotransferase (ALT/SGPT) 12 U/L (14-59) Alkaline Phosphatase 92 U/L (46-116) Ammonia 21 mcmol/L (11-34) Creatine Kinase 28 U/L (26-192) Creatine Kinase MB (Mass) 2.9 ng/mL (0.0-3.6) Creatine Kinase MB Relative Index % (0-4) Troponin I Quantitative 0.910 ng/mL (0.000-0.055) RN-Iaj-U-Type Natriuretic Peptide 72946 pg/mL (0-449) Total Protein 7.5 g/dL (6.4-8.2) Albumin 2.5 g/dL (3.4-5.0) Albumin/Globulin Ratio 0.5 (1.0-1.7) Urine Collection Type U cath Urine Color Yellow Urine Clarity Cloudy Urine pH 5.0 (<5.0-8.0) Urine Specific [place] 1.015 (1.000-1.030) Urine Protein 30 mg/dL (NEG-TRACE) Urine Glucose (UA) Negative mg/dL (NEG) Urine Ketones (Stick) Negative mg/dL (NEG) Urine Blood Negative (NEG) Urine Nitrite Negative (NEG) Urine Bilirubin Negative (NEG) Urine Urobilinogen Dipstick 0.2 mg/dL (0.2 mg/dL) Urine Leukocyte Esterase Negative (NEG) Urine RBC Occ /HPF (0-2) Urine WBC Occ /HPF (0-4) Urine Squamous Epithelial Cells Mod /LPF Urine Bacteria Few /HPF (0-FEW) Urine Mucus Slight /LPF O2 Saturation 93 % (92-99) Arterial Blood pH 7.31 (7.35-7.45) Arterial Blood pCO2 at Patient Temp 71 mmHg (35-46) Arterial Blood pO2 at Patient Temp 74 mmHg (65-108) Arterial Blood HCO3 35 mmol/L (21-28) Arterial Blood Base Excess 7 mmol/L (-3-3) FiO2 32/3l nc Test 06/09/20 19:30 06/09/20 21:35 06/09/20 22:40 06/10/20 00:28 Troponin I Quantitative 0.659 ng/mL (0.000-0.055) 0.576 ng/mL (0.000-0.055) O2 Saturation 93 % (92-99) Arterial Blood pH 7.39 (7.35-7.45) Arterial Blood pCO2 at Patient Temp 68 mmHg (35-46) Arterial Blood pO2 at Patient Temp 70 mmHg (65-108) Arterial Blood HCO3 40 mmol/L (21-28) Arterial Blood Base Excess 13 mmol/L (-3-3) FiO2 35 (bipap) Glucose (Fingerstick) 163 mg/dL (70-99) Test 06/10/20 04:50 06/10/20 06:03 White Blood Count 6.5 x10^3/uL (4.0-11.0) Red Blood Count 3.37 x10^6/uL (3.50-5.40) Hemoglobin 9.0 g/dL (12.0-15.5) Hematocrit 29.0 % (36.0-47.0) Mean Corpuscular Volume 86 fL (79-100) Mean Corpuscular Hemoglobin 27 pg (25-35) Mean Corpuscular Hemoglobin Concent 31 g/dL (31-37) Red Cell Distribution Width 18.8 % (11.5-14.5) Platelet Count 250 x10^3/uL (140-400) Neutrophils (%) (Auto) 81 % (31-73) Lymphocytes (%) (Auto) 10 % (24-48) Monocytes (%) (Auto) 7 % (0-9) Eosinophils (%) (Auto) 1 % (0-3) Basophils (%) (Auto) 1 % (0-3) Neutrophils # (Auto) 5.3 x10^3/uL (1.8-7.7) Lymphocytes # (Auto) 0.6 x10^3/uL (1.0-4.8) Monocytes # (Auto) 0.4 x10^3/uL (0.0-1.1) Eosinophils # (Auto) 0.1 x10^3/uL (0.0-0.7) Basophils # (Auto) 0.1 x10^3/uL (0.0-0.2) Sodium Level 143 mmol/L (136-145) Potassium Level 4.5 mmol/L (3.5-5.1) Chloride Level 104 mmol/L (98-107) Carbon Dioxide Level 38 mmol/L (21-32) Anion Gap 1 (6-14) Blood Urea Nitrogen 35 mg/dL (7-20) Creatinine 1.5 mg/dL (0.6-1.0) Estimated GFR (Cockcroft-Gault) 33.6 Glucose Level 177 mg/dL (70-99) Calcium Level 8.4 mg/dL (8.5-10.1) Magnesium Level 2.2 mg/dL (1.8-2.4) Glucose (Fingerstick) 193 mg/dL (70-99) Objective Assessment Cellulitis, right lower extremity. Hematoma, right groin follow cardiac catheterization 05/06/2020. Recent history ESBL producing Escherichia coli UTI, which has been treated. Chronic kidney disease. Peripheral arterial disease. Diabetes mellitus type 2 with peripheral neuropathy. Obesity, previous left below-knee amputation. H/o Cat exposure. None over last month. CHF Plan Plan of Care supportive care leg looks good d/c antibiotics d/w HANNAH Carrera MD Jun 10, 2020 08:12
[2020-06-10] MEDS: FUROSEMIDE 40 MG/4 ML VIAL. IVP SCH ×2 (08:15→14:53)
--- NOTE | 2020-06-10 08:22 | PDOC ---
PROGRESS NOTES Date of Service DATE: 06/10/20 TIME: 08:16 Subjective Subjective still on bipap. receiving iv lasix. bp is high and will order prn iv hydralazine. abg this morning pending. off antibiotics per ID. I and O not recorded. lab reviewed. troponin down to 0.5 and suspect elevated troponin due to chf. Objective Objective Vital Signs Date Time Temp Pulse Resp B/P (MAP) Pulse Ox O2 Delivery O2 Flow Rate FiO2 06/10/20 07:30 97.0 73 24 183/88 (119) 97 BiPAP/CPAP 97.0 06/09/20 16:41 3.0 Intake and Output 06/10/20 07:00 Output Total 1 ml Balance -1 ml Output Urine Total 1 ml Physical Exam Abdomen: Soft, Other (obese) Heart: Regular rate, Normal S1, Normal S2 Extremities: Other (edema in arms and right thigh and leg. left BKA stump) General: Other (on bipap) HEENT: Atraumatic Lungs: Other (decreased breath sounds anteriorly) Neck: Supple Psych/Mental Status: Mood NL Skin: Other (redness RLE improved) Assessment Assessment Problems1. Acute on chronic diastolic congestive heart failure. 2. Metabolic encephalopathy secondary to CO2 narcosis. 3. Acute on chronic hypoxic and hypercarbic respiratory failure. 4. Obstructive sleep apnea, CPAP noncompliant. 5. Suspected obesity hypoventilation syndrome. 6. Anasarca due to congestive heart failure. 7. Chronic kidney disease stage 3. 8. Diabetes mellitus type 2, on insulin with nephropathy and peripheral neuropathy. 9. Coronary artery disease. 10. Hypertension. 11. Hyperlipidemia. 12. Recent cellulitis of right leg. treated and resolved 13. Morbid obesity. 14. Recent large right groin hematoma following a cardiac catheterization 15. Mild peripheral arterial disease. 16. History of a left below-knee amputation. 17. Severe protein-calorie malnutrition. 18. Anemia of chronic disease. Medical Problems: (1) Acute exacerbation of CHF (congestive heart failure) Status: Acute (2) Altered mental status Status: Acute (3) Elevated troponin Status: Acute Plan Plan of Care continue bipap continue telemetry consult cardiology and pulmonary continue bipap repeat abg pending continue iv lasix scd for dvt prophylaxis iv hydralazine prn d/c gentle iv fluids when she can take po cxr and labs tomorrow Comment Review of Relevant I have reviewed the following items helio (where applicable) has been applied. Labs Laboratory Tests Test 06/09/20 09:45 06/09/20 10:19 06/09/20 11:18 06/09/20 12:46 Glucose (Fingerstick) 198 mg/dL (70-99) White Blood Count 8.5 x10^3/uL (4.0-11.0) Red Blood Count 3.62 x10^6/uL (3.50-5.40) Hemoglobin 9.9 g/dL (12.0-15.5) Hematocrit 31.5 % (36.0-47.0) Mean Corpuscular Volume 87 fL (79-100) Mean Corpuscular Hemoglobin 27 pg (25-35) Mean Corpuscular Hemoglobin Concent 31 g/dL (31-37) Red Cell Distribution Width 19.5 % (11.5-14.5) Platelet Count 283 x10^3/uL (140-400) Neutrophils (%) (Auto) 81 % (31-73) Lymphocytes (%) (Auto) 11 % (24-48) Monocytes (%) (Auto) 6 % (0-9) Eosinophils (%) (Auto) 1 % (0-3) Basophils (%) (Auto) 1 % (0-3) Neutrophils # (Auto) 6.9 x10^3/uL (1.8-7.7) Lymphocytes # (Auto) 0.9 x10^3/uL (1.0-4.8) Monocytes # (Auto) 0.5 x10^3/uL (0.0-1.1) Eosinophils # (Auto) 0.1 x10^3/uL (0.0-0.7) Basophils # (Auto) 0.1 x10^3/uL (0.0-0.2) Sodium Level 144 mmol/L (136-145) Potassium Level 5.1 mmol/L (3.5-5.1) Chloride Level 104 mmol/L (98-107) Carbon Dioxide Level 36 mmol/L (21-32) Anion Gap 4 (6-14) Blood Urea Nitrogen 40 mg/dL (7-20) Creatinine 1.7 mg/dL (0.6-1.0) Estimated GFR (Cockcroft-Gault) 29.1 BUN/Creatinine Ratio 24 (6-20) Glucose Level 200 mg/dL (70-99) Lactic Acid Level 1.2 mmol/L (0.4-2.0) Calcium Level 9.0 mg/dL (8.5-10.1) Magnesium Level 2.6 mg/dL (1.8-2.4) Total Bilirubin 0.6 mg/dL (0.2-1.0) Aspartate Amino Transf (AST/SGOT) 16 U/L (15-37) Alanine Aminotransferase (ALT/SGPT) 12 U/L (14-59) Alkaline Phosphatase 92 U/L (46-116) Ammonia 21 mcmol/L (11-34) Creatine Kinase 28 U/L (26-192) Creatine Kinase MB (Mass) 2.9 ng/mL (0.0-3.6) Creatine Kinase MB Relative Index % (0-4) Troponin I Quantitative 0.910 ng/mL (0.000-0.055) PO-Pqh-Y-Type Natriuretic Peptide 92676 pg/mL (0-449) Total Protein 7.5 g/dL (6.4-8.2) Albumin 2.5 g/dL (3.4-5.0) Albumin/Globulin Ratio 0.5 (1.0-1.7) Urine Collection Type U cath Urine Color Yellow Urine Clarity Cloudy Urine pH 5.0 (<5.0-8.0) Urine Specific [place] 1.015 (1.000-1.030) Urine Protein 30 mg/dL (NEG-TRACE) Urine Glucose (UA) Negative mg/dL (NEG) Urine Ketones (Stick) Negative mg/dL (NEG) Urine Blood Negative (NEG) Urine Nitrite Negative (NEG) Urine Bilirubin Negative (NEG) Urine Urobilinogen Dipstick 0.2 mg/dL (0.2 mg/dL) Urine Leukocyte Esterase Negative (NEG) Urine RBC Occ /HPF (0-2) Urine WBC Occ /HPF (0-4) Urine Squamous Epithelial Cells Mod /LPF Urine Bacteria Few /HPF (0-FEW) Urine Mucus Slight /LPF O2 Saturation 93 % (92-99) Arterial Blood pH 7.31 (7.35-7.45) Arterial Blood pCO2 at Patient Temp 71 mmHg (35-46) Arterial Blood pO2 at Patient Temp 74 mmHg (65-108) Arterial Blood HCO3 35 mmol/L (21-28) Arterial Blood Base Excess 7 mmol/L (-3-3) FiO2 32/3l nc Test 06/09/20 19:30 06/09/20 21:35 06/09/20 22:40 06/10/20 00:28 Troponin I Quantitative 0.659 ng/mL (0.000-0.055) 0.576 ng/mL (0.000-0.055) O2 Saturation 93 % (92-99) Arterial Blood pH 7.39 (7.35-7.45) Arterial Blood pCO2 at Patient Temp 68 mmHg (35-46) Arterial Blood pO2 at Patient Temp 70 mmHg (65-108) Arterial Blood HCO3 40 mmol/L (21-28) Arterial Blood Base Excess 13 mmol/L (-3-3) FiO2 35 (bipap) Glucose (Fingerstick) 163 mg/dL (70-99) Test 06/10/20 04:50 06/10/20 06:03 White Blood Count 6.5 x10^3/uL (4.0-11.0) Red Blood Count 3.37 x10^6/uL (3.50-5.40) Hemoglobin 9.0 g/dL (12.0-15.5) Hematocrit 29.0 % (36.0-47.0) Mean Corpuscular Volume 86 fL (79-100) Mean Corpuscular Hemoglobin 27 pg (25-35) Mean Corpuscular Hemoglobin Concent 31 g/dL (31-37) Red Cell Distribution Width 18.8 % (11.5-14.5) Platelet Count 250 x10^3/uL (140-400) Neutrophils (%) (Auto) 81 % (31-73) Lymphocytes (%) (Auto) 10 % (24-48) Monocytes (%) (Auto) 7 % (0-9) Eosinophils (%) (Auto) 1 % (0-3) Basophils (%) (Auto) 1 % (0-3) Neutrophils # (Auto) 5.3 x10^3/uL (1.8-7.7) Lymphocytes # (Auto) 0.6 x10^3/uL (1.0-4.8) Monocytes # (Auto) 0.4 x10^3/uL (0.0-1.1) Eosinophils # (Auto) 0.1 x10^3/uL (0.0-0.7) Basophils # (Auto) 0.1 x10^3/uL (0.0-0.2) Sodium Level 143 mmol/L (136-145) Potassium Level 4.5 mmol/L (3.5-5.1) Chloride Level 104 mmol/L (98-107) Carbon Dioxide Level 38 mmol/L (21-32) Anion Gap 1 (6-14) Blood Urea Nitrogen 35 mg/dL (7-20) Creatinine 1.5 mg/dL (0.6-1.0) Estimated GFR (Cockcroft-Gault) 33.6 Glucose Level 177 mg/dL (70-99) Calcium Level 8.4 mg/dL (8.5-10.1) Magnesium Level 2.2 mg/dL (1.8-2.4) Glucose (Fingerstick) 193 mg/dL (70-99) Laboratory Tests Test 06/09/20 09:45 06/09/20 10:19 06/09/20 11:18 06/09/20 12:46 Glucose (Fingerstick) 198 mg/dL (70-99) White Blood Count 8.5 x10^3/uL (4.0-11.0) Red Blood Count 3.62 x10^6/uL (3.50-5.40) Hemoglobin 9.9 g/dL (12.0-15.5) Hematocrit 31.5 % (36.0-47.0) Mean Corpuscular Volume 87 fL (79-100) Mean Corpuscular Hemoglobin 27 pg (25-35) Mean Corpuscular Hemoglobin Concent 31 g/dL (31-37) Red Cell Distribution Width 19.5 % (11.5-14.5) Platelet Count 283 x10^3/uL (140-400) Neutrophils (%) (Auto) 81 % (31-73) Lymphocytes (%) (Auto) 11 % (24-48) Monocytes (%) (Auto) 6 % (0-9) Eosinophils (%) (Auto) 1 % (0-3) Basophils (%) (Auto) 1 % (0-3) Neutrophils # (Auto) 6.9 x10^3/uL (1.8-7.7) Lymphocytes # (Auto) 0.9 x10^3/uL (1.0-4.8) Monocytes # (Auto) 0.5 x10^3/uL (0.0-1.1) Eosinophils # (Auto) 0.1 x10^3/uL (0.0-0.7) Basophils # (Auto) 0.1 x10^3/uL (0.0-0.2) Sodium Level 144 mmol/L (136-145) Potassium Level 5.1 mmol/L (3.5-5.1) Chloride Level 104 mmol/L (98-107) Carbon Dioxide Level 36 mmol/L (21-32) Anion Gap 4 (6-14) Blood Urea Nitrogen 40 mg/dL (7-20) Creatinine 1.7 mg/dL (0.6-1.0) Estimated GFR (Cockcroft-Gault) 29.1 BUN/Creatinine Ratio 24 (6-20) Glucose Level 200 mg/dL (70-99) Lactic Acid Level 1.2 mmol/L (0.4-2.0) Calcium Level 9.0 mg/dL (8.5-10.1) Magnesium Level 2.6 mg/dL (1.8-2.4) Total Bilirubin 0.6 mg/dL (0.2-1.0) Aspartate Amino Transf (AST/SGOT) 16 U/L (15-37) Alanine Aminotransferase (ALT/SGPT) 12 U/L (14-59) Alkaline Phosphatase 92 U/L (46-116) Ammonia 21 mcmol/L (11-34) Creatine Kinase 28 U/L (26-192) Creatine Kinase MB (Mass) 2.9 ng/mL (0.0-3.6) Creatine Kinase MB Relative Index % (0-4) Troponin I Quantitative 0.910 ng/mL (0.000-0.055) QH-Hce-U-Type Natriuretic Peptide 06005 pg/mL (0-449) Total Protein 7.5 g/dL (6.4-8.2) Albumin 2.5 g/dL (3.4-5.0) Albumin/Globulin Ratio 0.5 (1.0-1.7) Urine Collection Type U cath Urine Color Yellow Urine Clarity Cloudy Urine pH 5.0 (<5.0-8.0) Urine Specific [place] 1.015 (1.000-1.030) Urine Protein 30 mg/dL (NEG-TRACE) Urine Glucose (UA) Negative mg/dL (NEG) Urine Ketones (Stick) Negative mg/dL (NEG) Urine Blood Negative (NEG) Urine Nitrite Negative (NEG) Urine Bilirubin Negative (NEG) Urine Urobilinogen Dipstick 0.2 mg/dL (0.2 mg/dL) Urine Leukocyte Esterase Negative (NEG) Urine RBC Occ /HPF (0-2) Urine WBC Occ /HPF (0-4) Urine Squamous Epithelial Cells Mod /LPF Urine Bacteria Few /HPF (0-FEW) Urine Mucus Slight /LPF O2 Saturation 93 % (92-99) Arterial Blood pH 7.31 (7.35-7.45) Arterial Blood pCO2 at Patient Temp 71 mmHg (35-46) Arterial Blood pO2 at Patient Temp 74 mmHg (65-108) Arterial Blood HCO3 35 mmol/L (21-28) Arterial Blood Base Excess 7 mmol/L (-3-3) FiO2 32/3l nc Test 06/09/20 19:30 06/09/20 21:35 06/09/20 22:40 06/10/20 00:28 Troponin I Quantitative 0.659 ng/mL (0.000-0.055) 0.576 ng/mL (0.000-0.055) O2 Saturation 93 % (92-99) Arterial Blood pH 7.39 (7.35-7.45) Arterial Blood pCO2 at Patient Temp 68 mmHg (35-46) Arterial Blood pO2 at Patient Temp 70 mmHg (65-108) Arterial Blood HCO3 40 mmol/L (21-28) Arterial Blood Base Excess 13 mmol/L (-3-3) FiO2 35 (bipap) Glucose (Fingerstick) 163 mg/dL (70-99) Test 06/10/20 04:50 06/10/20 06:03 White Blood Count 6.5 x10^3/uL (4.0-11.0) Red Blood Count 3.37 x10^6/uL (3.50-5.40) Hemoglobin 9.0 g/dL (12.0-15.5) Hematocrit 29.0 % (36.0-47.0) Mean Corpuscular Volume 86 fL (79-100) Mean Corpuscular Hemoglobin 27 pg (25-35) Mean Corpuscular Hemoglobin Concent 31 g/dL (31-37) Red Cell Distribution Width 18.8 % (11.5-14.5) Platelet Count 250 x10^3/uL (140-400) Neutrophils (%) (Auto) 81 % (31-73) Lymphocytes (%) (Auto) 10 % (24-48) Monocytes (%) (Auto) 7 % (0-9) Eosinophils (%) (Auto) 1 % (0-3) Basophils (%) (Auto) 1 % (0-3) Neutrophils # (Auto) 5.3 x10^3/uL (1.8-7.7) Lymphocytes # (Auto) 0.6 x10^3/uL (1.0-4.8) Monocytes # (Auto) 0.4 x10^3/uL (0.0-1.1) Eosinophils # (Auto) 0.1 x10^3/uL (0.0-0.7) Basophils # (Auto) 0.1 x10^3/uL (0.0-0.2) Sodium Level 143 mmol/L (136-145) Potassium Level 4.5 mmol/L (3.5-5.1) Chloride Level 104 mmol/L (98-107) Carbon Dioxide Level 38 mmol/L (21-32) Anion Gap 1 (6-14) Blood Urea Nitrogen 35 mg/dL (7-20) Creatinine 1.5 mg/dL (0.6-1.0) Estimated GFR (Cockcroft-Gault) 33.6 Glucose Level 177 mg/dL (70-99) Calcium Level 8.4 mg/dL (8.5-10.1) Magnesium Level 2.2 mg/dL (1.8-2.4) Glucose (Fingerstick) 193 mg/dL (70-99) Medications Current Medications Aspirin (Aspirin Rectal Supp) 300 mg 1X ONCE VT Last administered on 06/09/20at 14:30; Start 06/09/20 at 12:30; Stop 06/09/20 at 12:35; Status DC Bumetanide (Bumex) 1 mg 1X ONCE IV Last administered on 06/09/20at 14:43; Start 06/09/20 at 12:30; Stop 06/09/20 at 12:35; Status DC Insulin Human Lispro (HumaLOG) 0-5 UNITS TIDWMEALS SQ ; Start 06/09/20 at 17:00; Stop 06/09/20 at 21:16; Status DC Dextrose (Dextrose 50%-Water Syringe) 12.5 gm PRN Q15MIN PRN IV SEE COMMENTS; Start 06/09/20 at 13:15 Famotidine (Pepcid Vial) 20 mg DAILY IVP ; Start 06/10/20 at 09:00; Stop 06/09/20 at 14:28; Status DC Furosemide (Lasix) 80 mg BID92 IVP ; Start 06/09/20 at 14:00; Stop 06/09/20 at 14:28; Status DC Linezolid/Dextrose 300 ml @ 300 mls/hr Q12HR IV ; Start 06/09/20 at 14:30; Stop 06/09/20 at 18:28; Status DC Meropenem 500 mg/ Sodium Chloride 50 ml @ 100 mls/hr Q8HRS IV ; Start 06/09/20 at 14:00; Stop 06/09/20 at 18:29; Status DC Insulin Human Lispro (HumaLOG) 0-6 UNITS BG 300-39... TIDWMEALS SQ ; Start 06/09/20 at 17:00 Bisacodyl (Dulcolax Supp) 10 mg PRN DAILY PRN VT CONSTIPATION; Start 06/09/20 at 14:00 Acetaminophen (Tylenol Supp) 650 mg PRN Q6HRS PRN VT MILD PAIN / TEMP > 100.3'F; Start 06/09/20 at 14:00 Furosemide (Lasix) 40 mg BID92 IVP Last administered on 06/09/20at 16:52; Start 06/09/20 at 15:00 Dextrose/Sodium Chloride 1,000 ml @ 30 mls/hr CONT PRN IV ; Start 06/09/20 at 14:30; Stop 06/10/20 at 01:57; Status DC Linezolid/Dextrose 300 ml @ 300 mls/hr Q12HR IV Last administered on 06/09/20at 20:37; Start 06/09/20 at 21:00; Stop 06/10/20 at 08:13; Status DC Meropenem 500 mg/ Sodium Chloride 50 ml @ 100 mls/hr Q8H IV Last administered on 06/10/20at 02:04; Start 06/09/20 at 18:30; Stop 06/10/20 at 08:13; Status DC Lorazepam (Ativan Inj) 0.5 mg PRN Q6HRS PRN IVP ANXIETY / AGITATION Last administered on 06/10/20at 03:36; Start 06/09/20 at 21:15 Dextrose/Sodium Chloride 1,000 ml @ 30 mls/hr CONT PRN PRN IV SEE IO; Start 06/10/20 at 02:00 Pharmacy Consult (C.diff Med Screen By Rx) 1 each 1X ONCE MC ; Start 06/10/20 at 02:45; Stop 06/10/20 at 02:46; Status Cancel Lactobacillus Rhamnosus (Culturelle) 1 cap BID PO ; Start 06/10/20 at 09:00 Hydralazine HCl (Apresoline Inj) 10 mg PRN Q4HRS PRN IVP ELEVATED BP, SEE COMMENTS; Start 06/10/20 at 08:00 Active Scripts Active Admelog (Insulin Lispro) 100 Unit/1 Ml Vial 6 Units SQ TIDAC hold if blood sugar less than 90 before a meal Lantus (Insulin Glargine,Hum.rec.anlog) 100 Unit/1 Ml Vial 14 Unit SQ QHS Klor-Con M20 (Potassium Chloride) 20 Meq Tab.er.prt 20 Meq PO DAILY Amlodipine Besylate 5 Mg Tablet 2.5 Mg PO DAILY Zyvox (Linezolid) 600 Mg Tablet 600 Mg PO BID 7 Days Cefdinir 300 Mg Capsule 300 Mg PO BID 7 Days Nyamyc (Nystatin) 15 Gm Powder 1 Renee TP BID Stool Soft-Stimulant Lax Tab (Sennosides/Docusate Sodium) 1 Each Tablet 2 Tab PO DAILY Furosemide 40 Mg Tablet 40 Mg PO DAILY Gabapentin 300 Mg Capsule 300 Mg PO BID Metoprolol Tartrate 25 Mg Tablet 25 Mg PO BID Feosol (Ferrous Sulfate) 325 Mg Tablet 325 Mg PO QODAY Synthroid (Levothyroxine Sodium) 150 Mcg Tablet 150 Mcg PO DAILY06 Allopurinol 100 Mg Tablet 100 Mg PO DAILY Paroxetine Hcl 20 Mg Tablet 20 Mg PO DAILY Atorvastatin Calcium 10 Mg Tablet 10 Mg PO QHS Reported Aspirin 81 Mg Tab.chew 81 Mg PO HS Tylenol (Acetaminophen) 325 Mg Tablet 650 Mg PO PRN Q4HRS Vitals/I & O Vital Sign - Last 24 Hours 06/09/20 06/09/20 06/09/20 06/09/20 09:35 16:41 18:00 19:24 Temp 98.0 97.4 98.0 97.4 Pulse 65 70 78 Resp 29 24 22 B/P (MAP) 154/73 (100) 145/65 (91) 147/97 (114) Pulse Ox 98 97 94 93 O2 Delivery Nasal Cannula Nasal Cannula BiPAP/CPAP BiPAP/CPAP O2 Flow Rate 3.0 3.0 06/09/20 06/09/20 06/09/20 06/09/20 19:36 20:00 21:30 22:42 Temp 97.4 97.4 Pulse 66 Resp 24 B/P (MAP) 141/54 (83) Pulse Ox 92 94 97 O2 Delivery BiPAP/CPAP Bi-pap BiPAP/CPAP BiPAP/CPAP 06/09/20 06/10/20 06/10/20 06/10/20 23:55 00:10 02:59 03:09 Temp 97.3 97.3 Pulse 71 Resp 22 B/P (MAP) 179/91 (120) Pulse Ox 96 94 97 O2 Delivery Bi-pap BiPAP/CPAP BiPAP/CPAP BiPAP/CPAP 06/10/20 06/10/20 05:17 07:30 Temp 97.0 97.0 Pulse 73 Resp 24 B/P (MAP) 183/88 (119) Pulse Ox 95 97 O2 Delivery BiPAP/CPAP BiPAP/CPAP Intake and Output 06/09/20 06/09/20 06/10/20 15:00 23:00 07:00 Output Total 0 ml 1 ml Balance 0 ml -1 ml Justifications for Admission Other Justification TERE ALLISON MD Jun 10, 2020 08:22
[2020-06-10 08:41] LABS: BASE EXCESS ABG 12 mmol/L (-3-3); HCO3 ABG 38 mmol/L (21-28); PCO2 ABG 55 mmHg (35-46); PO2 ABG 65 mmHg (65-108); SAT O2 ABG 93 % (92-99)
[2020-06-10 08:44] LABS: FIO2 ABG 35% BIPAP
[2020-06-10] MEDS ORDERED: FAMOTIDINE 20 MG/2 ML VIAL IVP SCH (09:00)
--- NOTE | 2020-06-10 09:33 | PDOC2 ---
FARHANA HOFFMAN NUCLEAR EQUIPMENT SALES ENGINEER 06/10/20 0933: CARDIAC CONSULT DATE OF CONSULT Date of Consult DATE: 06/10/20 TIME: 09:09 REASON FOR CONSULT Reason for Consult: CHF REFERRING PHYSICIAN Referring Physician: Dr. Lara SOURCE Source: Chart review, Patient HISTORY OF PRESENT ILLNESS HISTORY OF PRESENT ILLNESS This is a 79 yo female who presented from rehab facility secondary to altered mental status and worsening peripheral edema. Patient presently confused, unable to tell me what brought her to the hospital. Is asking for and for discharge. Patient was recently seen by our service for right groin hematoma pos t Angio-Seal failure after cardiac cath last month. Was discharge to [facility] for rehab. Per chart review, patient was noted to be more confused and had more peripheral edema, which prompted her transfer to the ED for further evaluation and treatment. She presently denies any chest pain, palpitations, dizziness, diaphoresis, or nausea/vomiting. Is off BiPAP and on NC. Reports breathing has improved. PAST MEDICAL HISTORY Past Medical History Cardiovascular: CAD, CHF, HTN, Hyperlipidemia, Other Pulmonary: Bronchitis, Pneumonia, Other CENTRAL NERVOUS SYSTEM: Periperal neuropathy GI: Constipation Heme/Onc: Anemia NOS, Cancer Hepatobiliary: No pertinent hx Psych: Anxiety Musculoskeletal: Osteoarthritis Rheumatologic: No pertinent hx Infectious disease: Other Renal/: Chronic renal insuff, UTI, Urinary Incontinence Endocrine: Diabetes, Hypothyroidism PAST SURGICAL HISTORY Past Surgical History Appendectomy, Cataract Removal, Tonsillectomy, Hysterectomy, Other FAMILY HISTORY Family History: Diabetes, Hypertension SOCIAL HISTORY Social History ALCOHOL: none Drugs: None Lives: with Family (has been a rehab) CURRENT MEDICATIONS CURRENT MEDICATIONS Current Medications Medications (Trade) Dose Ordered Sig/Meagan Route PRN Reason Start Time Stop Time Status Last Admin Dose Admin Aspirin (Aspirin Rectal Supp) 300 mg 1X ONCE AK 06/09/20 12:30 06/09/20 12:35 DC 06/09/20 14:30 Bumetanide (Bumex) 1 mg 1X ONCE IV 06/09/20 12:30 06/09/20 12:35 DC 06/09/20 14:43 Furosemide (Lasix) 40 mg [id number] IVP 06/09/20 15:00 06/10/20 08:15 Linezolid/Dextrose 300 ml @ 300 mls/hr Q12HR IV 06/09/20 21:00 06/10/20 08:13 DC 06/09/20 20:37 Meropenem 500 mg/ Sodium Chloride 50 ml @ 100 mls/hr Q8H IV 06/09/20 18:30 06/10/20 08:13 DC 06/10/20 02:04 Lorazepam (Ativan Inj) 0.5 mg PRN Q6HRS PRN IVP ANXIETY / AGITATION 06/09/20 21:15 06/10/20 03:36 Hydralazine HCl (Apresoline Inj) 10 mg PRN Q4HRS PRN IVP ELEVATED BP, SEE COMMENTS 06/10/20 08:00 06/10/20 08:20 ALLERGIES ALLERGIES: Coded Allergies: lisinopril (Verified Allergy, Severe, THROAT, TONGUE SWELLING, 11/16/13) adhesive (Verified Allergy, Intermediate, TAPE-RED SKIN, 11/16/13) sertraline HCl (Verified Allergy, Intermediate, 11/16/13) I S O L A T I O N *CONTACT* (Verified Allergy, Unknown, 05/13/20) ESBL morphine (Verified Adverse Reaction, Intermediate, Nausea, 11/16/13) ROS Review of System 14 point ROS conducted with pertinent positives noted above in HPI, although limited due to metabolic encephalopathy PHYSICAL EXAM General: Alert, Cooperative, No acute distress, Other (oriented to person and place) Lungs: Other (fine crackles, diminished bases) Heart: Regular rate Abdomen: Soft, Other (obese) Extremities: Other (anasarca, left BKA) Neuro: Normal speech, Sensation intact Psych/Mental Status: Mood NL, Other (confused ) MUSCULOSKELETAL: Osteoarthritic changes both hands VITALS/I&O VITALS/I&O: Vital Signs Date Time Temp Pulse Resp B/P (MAP) Pulse Ox O2 Delivery O2 Flow Rate FiO2 06/10/20 08:49 94 Nasal Cannula 3.0 06/10/20 08:20 73 183/88 06/10/20 07:30 97.0 24 97.0 I & O 06/09/20 06/09/20 06/10/20 15:00 23:00 07:00 Output Total 0 ml 1 ml Balance 0 ml -1 ml LABS Lab: Laboratory Tests Test 06/09/20 09:45 06/09/20 10:19 06/09/20 11:18 06/09/20 12:46 Glucose (Fingerstick) 198 mg/dL (70-99) H White Blood Count 8.5 x10^3/uL (4.0-11.0) Red Blood Count 3.62 x10^6/uL (3.50-5.40) Hemoglobin 9.9 g/dL (12.0-15.5) L Hematocrit 31.5 % (36.0-47.0) L Mean Corpuscular Volume 87 fL (79-100) Mean Corpuscular Hemoglobin 27 pg (25-35) Mean Corpuscular Hemoglobin Concent 31 g/dL (31-37) Red Cell Distribution Width 19.5 % (11.5-14.5) H Platelet Count 283 x10^3/uL (140-400) Neutrophils (%) (Auto) 81 % (31-73) H Lymphocytes (%) (Auto) 11 % (24-48) L Monocytes (%) (Auto) 6 % (0-9) Eosinophils (%) (Auto) 1 % (0-3) Basophils (%) (Auto) 1 % (0-3) Neutrophils # (Auto) 6.9 x10^3/uL (1.8-7.7) Lymphocytes # (Auto) 0.9 x10^3/uL (1.0-4.8) L Monocytes # (Auto) 0.5 x10^3/uL (0.0-1.1) Eosinophils # (Auto) 0.1 x10^3/uL (0.0-0.7) Basophils # (Auto) 0.1 x10^3/uL (0.0-0.2) Sodium Level 144 mmol/L (136-145) Potassium Level 5.1 mmol/L (3.5-5.1) Chloride Level 104 mmol/L (98-107) Carbon Dioxide Level 36 mmol/L (21-32) H Anion Gap 4 (6-14) L Blood Urea Nitrogen 40 mg/dL (7-20) H Creatinine 1.7 mg/dL (0.6-1.0) H Estimated GFR (Cockcroft-Gault) 29.1 BUN/Creatinine Ratio 24 (6-20) H Glucose Level 200 mg/dL (70-99) H Lactic Acid Level 1.2 mmol/L (0.4-2.0) Calcium Level 9.0 mg/dL (8.5-10.1) Magnesium Level 2.6 mg/dL (1.8-2.4) H Total Bilirubin 0.6 mg/dL (0.2-1.0) Aspartate Amino Transferase (AST) 16 U/L (15-37) Alanine Aminotransferase (ALT) 12 U/L (14-59) L Alkaline Phosphatase 92 U/L (46-116) Ammonia 21 mcmol/L (11-34) Creatine Kinase 28 U/L (26-192) Creatine Kinase MB (Mass) 2.9 ng/mL (0.0-3.6) Creatine Kinase MB Relative Index % (0-4) Troponin I Quantitative 0.910 ng/mL (0.000-0.055) QN-Xgv-Y-Type Natriuretic Peptide 08715 pg/mL (0-449) H Total Protein 7.5 g/dL (6.4-8.2) Albumin 2.5 g/dL (3.4-5.0) L Albumin/Globulin Ratio 0.5 (1.0-1.7) L Urine Collection Type U cath Urine Color Yellow Urine Clarity Cloudy Urine pH 5.0 (<5.0-8.0) Urine Specific [place] 1.015 (1.000-1.030) Urine Protein 30 mg/dL (NEG-TRACE) Urine Glucose (UA) Negative mg/dL (NEG) Urine Ketones (Stick) Negative mg/dL (NEG) Urine Blood Negative (NEG) Urine Nitrite Negative (NEG) Urine Bilirubin Negative (NEG) Urine Urobilinogen Dipstick 0.2 mg/dL (0.2 mg/dL) Urine Leukocyte Esterase Negative (NEG) Urine RBC Occ /HPF (0-2) Urine WBC Occ /HPF (0-4) Urine Squamous Epithelial Cells Mod /LPF Urine Bacteria Few /HPF (0-FEW) Urine Mucus Slight /LPF O2 Saturation 93 % (92-99) Arterial Blood pH 7.31 (7.35-7.45) L Arterial Blood pCO2 at Patient Temp 71 mmHg (35-46) *H Arterial Blood pO2 at Patient Temp 74 mmHg (65-108) Arterial Blood HCO3 35 mmol/L (21-28) H Arterial Blood Base Excess 7 mmol/L (-3-3) H FiO2 32/3l nc Test 06/09/20 19:30 4/4/21 21:35 06/09/20 22:40 06/10/20 00:28 Troponin I Quantitative 0.659 ng/mL (0.000-0.055) 0.576 ng/mL (0.000-0.055) O2 Saturation 93 % (92-99) Arterial Blood pH 7.39 (7.35-7.45) Arterial Blood pCO2 at Patient Temp 68 mmHg (35-46) *H Arterial Blood pO2 at Patient Temp 70 mmHg (65-108) Arterial Blood HCO3 40 mmol/L (21-28) H Arterial Blood Base Excess 13 mmol/L (-3-3) H FiO2 35 (bipap) Glucose (Fingerstick) 163 mg/dL (70-99) H Test 06/10/20 04:50 06/10/20 06:03 06/10/20 08:40 White Blood Count 6.5 x10^3/uL (4.0-11.0) Red Blood Count 3.37 x10^6/uL (3.50-5.40) L Hemoglobin 9.0 g/dL (12.0-15.5) L Hematocrit 29.0 % (36.0-47.0) L Mean Corpuscular Volume 86 fL (79-100) Mean Corpuscular Hemoglobin 27 pg (25-35) Mean Corpuscular Hemoglobin Concent 31 g/dL (31-37) Red Cell Distribution Width 18.8 % (11.5-14.5) H Platelet Count 250 x10^3/uL (140-400) Neutrophils (%) (Auto) 81 % (31-73) H Lymphocytes (%) (Auto) 10 % (24-48) L Monocytes (%) (Auto) 7 % (0-9) Eosinophils (%) (Auto) 1 % (0-3) Basophils (%) (Auto) 1 % (0-3) Neutrophils # (Auto) 5.3 x10^3/uL (1.8-7.7) Lymphocytes # (Auto) 0.6 x10^3/uL (1.0-4.8) L Monocytes # (Auto) 0.4 x10^3/uL (0.0-1.1) Eosinophils # (Auto) 0.1 x10^3/uL (0.0-0.7) Basophils # (Auto) 0.1 x10^3/uL (0.0-0.2) Sodium Level 143 mmol/L (136-145) Potassium Level 4.5 mmol/L (3.5-5.1) Chloride Level 104 mmol/L (98-107) Carbon Dioxide Level 38 mmol/L (21-32) H Anion Gap 1 (6-14) L Blood Urea Nitrogen 35 mg/dL (7-20) H Creatinine 1.5 mg/dL (0.6-1.0) H Estimated GFR (Cockcroft-Gault) 33.6 Glucose Level 177 mg/dL (70-99) H Calcium Level 8.4 mg/dL (8.5-10.1) L Magnesium Level 2.2 mg/dL (1.8-2.4) Glucose (Fingerstick) 193 mg/dL (70-99) H O2 Saturation 93 % (92-99) Arterial Blood pH 7.46 (7.35-7.45) H Arterial Blood pCO2 at Patient Temp 55 mmHg (35-46) H Arterial Blood pO2 at Patient Temp 65 mmHg (65-108) Arterial Blood HCO3 38 mmol/L (21-28) H Arterial Blood Base Excess 12 mmol/L (-3-3) H FiO2 35% bipap Laboratory Tests 06/09/20 10:19 06/10/20 04:50 Laboratory Tests 06/09/20 10:19 06/10/20 04:50 ECHOCARDIOGRAM ECHOCARDIOGRAM <Conclusion> Technically difficult study. The left ventricular systolic function is normal. The Ejection Fraction is 50%. There is normal LV segmental wall motion. Trace tricuspid regurgitation with an estimated PAP of 47 mmHg. There is no evidence of significant pericardial effusion. DATE: 05/06/20 [id number] 0 STRESS TEST STRESS TEST Conclusion 1. No EKG evidence of stress-induced ischemia. 2. Nuclear imaging shows no reversible ischemia or infarct. 3. Normal left ventricular systolic function with an ejection fraction of greater than 70%. 4. Low risk study. DATE: 08/15/19 1138 HEART CATH HEART CATH FINDINGS A. RIGHT HEART CATHETERIZATION 1. Intracardiac pressures: Mean right atrial pressure 22 mmHg, right ventricular pressure 71/12 mmHg, pulmonary artery pressure 67/34 mmHg with a m doyle PA pressure 46 mmHg and mean pulmonary capillary wedge pressure of 28 mmHg. Patient has elevated right and left-sided filling pressures consistent with acute on chronic diastolic heart failure and moderate pulmonary hypertension. 2. Oxygen saturations: Right atrium 52.9%, pulmonary artery 55.6%, femoral arterial sheath 92%. No evidence of intracardiac shunt. 3. Cardiac output by Andrey method 5.2 L/min. B. LEFT HEART CATHETERIZATION 1. Hemodynamics: Elevated left ventricular end-diastolic pressure of 44 mmHg consistent with acute on chronic diastolic heart failure. No pullback gradient across aortic valve. 2. Coronary angiography: a. The left main coronary artery arose from the left sinus of Valsalva, gave rise to the left anterior descending and left circumflex arteries and did not show any significant stenosis. b. The left anterior descending artery showed calcified 60% stenosis involving the proximal segment that was physiologically insignificant based on IFR measurement of 0.92. The distal segment showed moderate diffuse disease. c. The left circumflex artery showed 100% chronic total occlusion involving a medium caliber obtuse marginal branch with distal reconstitution from left to left collaterals. d. The right coronary artery was a large and dominant vessel arising from the right sinus of Valsalva that did not show any significant stenosis. Conclusion 1. 60% stenosis involving the proximal segment of the left anterior descending artery that was physiologically insignificant based on IFR measurement of 0.92. The obtuse marginal branch of left circumflex artery there was a medium caliber vessel showed 100% chronic total occlusion with distal reconstitution from left to left collaterals. 2. Elevated right-sided and left-sided filling pressures consistent with acute on chronic diastolic heart failure. Moderate pulmonary hypertension. 3. No evidence of intracardiac shunt. Recommendations Optimization of medical therapy DATE: 05/06/20 [id number] ASSESSMENT/PLAN ASSESSMENT/PLAN 1. Acute on chronic respiratory failure; multifactorial with a/c CHF, untreated LULI, pulmHTN, and probable obesity-hypoventilation syndrome 2. Acute on chronic diastolic CHF; recent echo with preserved LV systolic function 3. Metabolic encephalopathy; CT head without acute findings 4. Mild troponin elevation; peak 0.9. Most probable type II, demand ischemia in setting of above. 5. CAD; recent cath showed 60% stenosis involving LAD with negative IFR and 100% LOGGER involving moderate caliber obtuse marginal branch of left circumflex artery with left to left collaterals, being managed medically. 6. NILDA on CKD 7. Hypertension: Controlled 8. Hyperlipidemia: statin 9. Hypothyroidism: Continue levothyroxine 10. Arrhythmia; brief burst of NSVT noted on tele. Mg WNL. 11. Diabetes mellitus type 2: Treat per IM 12. PAD s/p left BKA 13. Right groin hematoma post Angio-Seal failure after cardiac cath last month. Vascular surget consulted; no intervention warranted. Recommendations Diuresis with monitoring or renal function Secondary prevention including ASA, statin, BB therapy BiPAP PRN Ongoing lung optimization Supportive care JAY SMYTH MD 06/10/20 1808: CARDIAC CONSULT ASSESSMENT/PLAN ASSESSMENT/PLAN Patient seen and examined. Agree with LUMBER KILN OPERATOR's assessment and plan. MS changes probably secondary to metabolic encephalopathy Continue diuresis for mild acute on chr diastolic HF - monitor BUN/Cr CAD clinically stable - slight trop elevation prob demand ischemia Right groin hematoma and PAD stable Thank you for your consultation FARHANA HOFFMAN APRN Jun 10, 2020 09:33 JAY SMYTH MD Jun 10, 2020 18:08
[2020-06-10] MEDS ORDERED: ACETAMINOPHEN 325 MG TABLET. PO SCH (09:45)
[2020-06-10 10:17] VITALS: BP 182/82
[2020-06-10] MEDS: METOPROLOL TART IMMED RELEASE 25 MG TABLET. PO SCH ×2 (10:32→21:13)
[2020-06-10] MEDS: ALLOPURINOL 100 MG TABLET. PO SCH (10:32)
[2020-06-10] MEDS: PARoxetine 20 MG TABLET PO SCH (10:32)
[2020-06-10] MEDS: amLODIPine BESYLATE 5 MG TABLET PO SCH (10:33)
[2020-06-10] MEDS: GABAPENTIN 300 MG CAPSULE. PO SCH ×2 (10:33→21:12)
[2020-06-10] MEDS: LACTOBACILLUS RHAMNOSUS GG 1 CAPSULE. PO SCH ×2 (10:34→21:12)
[2020-06-10] MEDS: NYSTATIN TOPICAL POWDER 15GM BOTTLE. TP SCH ×2 (11:00→21:27)
--- NOTE | 2020-06-10 11:02 | CONS ---
DATE OF CONSULTATION: PULMONARY CONSULTATION ATTENDING PHYSICIAN: Ramirez Lara MD REASON FOR CONSULTATION: Respiratory failure, abnormal chest x-ray. HISTORY OF PRESENT ILLNESS: The patient is a 79-year-old morbidly obese patient with a BMI of 47.7. The patient has history of LULI/obesity hypoventilation syndrome with chronic hypercapnia. She has multiple other comorbid conditions including stage 3 kidney disease. The patient has not been using her CPAP at night as she says that it is broken. She was brought into the hospital from a skilled care nursing facility with altered mental status and increasing cellulitis and edema in her right lower extremity. She is not the best historian, but she denies any shortness of breath, denies any chest pain. She does not have any significant cough, fever or chills. I have reviewed the patient's chest x-ray and it was consistent with congestive heart failure and also increasing infiltrate in the right lower lobe. Her venous Doppler of the right lower extremity was negative for deep vein thrombosis. Her arterial blood gases on arrival showed a pH of 7.31, a pCO2 of 71 and a pO2 of 74 on 32% FiO2. She was placed on BiPAP. This morning, pH is 7.46, pCO2 of 55 and pO2 of 65 on 35% FiO2. She is awake, following commands. She is not the best historian. She had a previous cardiac catheterization done in May of this year and she had both right and left heart catheterization. Her PA pressure was 67 systolic with a pulmonary capillary wedge pressure of 28. Her left heart catheterization that showed 60% LAD stenosis and evidence of left ventricular end-diastolic pressure of 44. PAST MEDICAL HISTORY: Significant for history of LULI/OHS; history of chronic hypoxic and hypercapnic respiratory failure; history of previous right and left heart catheterization as discussed above; history of chronic cellulitis in the right leg; chronic venous insufficiency; history of left BKA; no significant tobacco history; history of noncompliance with CPAP; history of ESBL E. coli urinary tract infection. PAST SURGICAL HISTORY: No recent surgeries. She had prior left BKA. SOCIAL HISTORY: Denies any alcohol or cigarette use. REVIEW OF SYSTEMS: Limited, but pertinent positives discussed in my history of present illness, otherwise noncontributory. FAMILY HISTORY: Noncontributory to lungs. ALLERGIES: LISINOPRIL, MORPHINE, SERTRALINE. MEDICATIONS: Reviewed as listed in the MRAD. PHYSICAL EXAMINATION: VITAL SIGNS: Reviewed. Blood pressure on the high side 182/82, afebrile, pulse ox 93% on 3 liters. NECK: Supple. LUNGS: With diminished breath sounds bilaterally. CARDIOVASCULAR: With a regular rate. ABDOMEN: Obese. EXTREMITIES: With left BKA and right lower extremity cellulitis and edema. LABORATORY DATA: Her chemistries show a BUN of 35 and a creatinine of 1.5. White cell count 6.5, hemoglobin 9.0 and platelets are 250. IMAGING STUDIES: Chest x-ray findings are discussed in my history of present illness. She has evidence of CHF. IMPRESSION: 1. [id number] hypercapnic and hypoxic respiratory failure secondary to [id number] biventricular heart failure. 2. The patient with previous right and left heart catheterization in May of this year. She had a pulmonary artery systolic pressure of 67 with a pulmonary capillary wedge pressure of 28. She had left ventricular end-diastolic pressure of 44 and 60% stenosis of left anterior descending. She had evidence of biventricular failure and now comes in with another episode of [id number] biventricular failure. 3. History of obstructive sleep apnea/morbid obesity/underlying obesity hypoventilation syndrome. Noncompliant to CPAP. 4. Anasarca. 5. Chronic kidney disease, stage 3. 6. Diabetes mellitus. 7. History of coronary artery disease with 60% left anterior descending disease based on previous catheterization. 8. Cellulitis of the right leg. 9. History of recent right groin hematoma following cardiac catheterization. 10. Peripheral vascular disease. 11. Left below-knee amputation. RECOMMENDATIONS: 1. The patient's ABGs have shown improvement with BiPAP. 2. We will use BiPAP at bedtime and p.r.n. during the day. 3. We would recommend cautious diuresis, keeping an eye on her renal function. 4. Follow Cardiology recommendation. 5. Antibiotics were given on admission. We will leave up to PCP. Pulmonary murguia, chest x-ray appears more suggestive of heart failure. She does not have a fever and does not have leukocytosis. Follow up chest x-ray post diuresis in the next 48 hours. 6. I would recommend discussion of advanced directives. 7. We will follow along with you. 8. Discussed with RN and RT. BILL BHANDARI MD DR: AUBREY/los JOB#: [id number] / [id number]
--- NOTE | 2020-06-10 11:55 | NUR ---
SS following for discharge planning. SS reviewed pt chart and discussed with pt RN. 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 Pt on IV Lasix. PT/OT orders requested. COVID19 test requested for placement. SS will continue to follow for discharge planning.
[2020-06-10] MEDS: FERROUS SULFATE 325 MG TABLET. PO SCH (12:26)
[2020-06-10] MEDS: SENNOSIDES/DOCUSATE 8.6/50MG TABLET. PO SCH (12:27)
[2020-06-10 14:04] VITALS: BP 168/82
[2020-06-10 19:40] VITALS: BP 149/77
--- NOTE | 2020-06-10 19:45 | NUR ---
Pt in bed sleeping, assessment completed vss pt denied pain at this time pt reoriented to surroundings and call light placed in reach will resume care and continue to monitor pt.
[2020-06-10] MEDS ORDERED: ATORVASTATIN CALCIUM 10 MG TABLET. PO SCH (21:00)
[2020-06-10] MEDS: ASPIRIN CHEWABLE 81 MG TABLET. PO SCH (21:12)
[2020-06-10] MEDS: ATORVASTATIN CALCIUM 40 MG TABLET. PO SCH (21:13)
[2020-06-10] MEDS: INSULIN GLARGINE SYRINGE. SQ SCH (21:14)
[2020-06-10 23:00] VITALS: BP 105/53
[2020-06-11] VITALS (7 sets, daily range): BP systolic 121–154; BP diastolic 57–77
[2020-06-11] MEDS: LEVOTHYROXINE 150 MCG TABLET PO SCH (05:43)
[2020-06-11 07:40] LABS: BASO # 0.1 x10^3/uL (0.0-0.2); BASO % 1 % (0-3); EOS # 0.1 x10^3/uL (0.0-0.7); EOS % 1 % (0-3); HEMATOCRIT 31.6 % (36.0-47.0); HEMOGLOBIN 9.9 g/dL (12.0-15.5); LYMPH # 0.9 x10^3/uL (1.0-4.8); LYMPH % 11 % (24-48); MEAN CORPUSCULAR HEMOGLOBIN 27 pg (25-35); MEAN CORPUSCULAR HGB CONC 32 g/dL (31-37); MEAN CORPUSCULAR VOLUME 86 fL (79-100); MONO # 0.7 x10^3/uL (0.0-1.1); MONO % 9 % (0-9); NEUT # 6.2 x10^3/uL (1.8-7.7); NEUT % 79 % (31-73); PLATELET COUNT 240 x10^3/uL (140-400); RED BLOOD COUNT 3.66 x10^6/uL (3.50-5.40); RED CELL DISTRIBUTION WIDTH 19.1 % (11.5-14.5); WHITE BLOOD COUNT 7.8 x10^3/uL (4.0-11.0)
[2020-06-11 07:53] LABS: CALCIUM 8.6 mg/dL (8.5-10.1); CREATININE 1.4 mg/dL (0.6-1.0); GFR 36.4; MAGNESIUM 2.1 mg/dL (1.8-2.4); POTASSIUM 4.2 mmol/L (3.5-5.1)
[2020-06-11] MEDS: INSULIN LISPRO 300 UNITS/3 ML VIAL. SQ SCH ×3 (07:54→17:41)
--- NOTE | 2020-06-11 08:13 | PDOC ---
PULMONARY PROGRESS NOTES DATE: 06/11/20 TIME: 08:12 Subjective Patient feels better, wore BiPAP last evening now on oxygen per nasal cannula no chest pain no pressure Vitals Vital Signs Date Time Temp Pulse Resp B/P (MAP) Pulse Ox O2 Delivery O2 Flow Rate FiO2 06/11/20 04:45 92 BiPAP/CPAP 06/11/20 03:00 97.2 67 22 136/68 (90) 97.2 06/10/20 19:45 3.0 ROS: No Nausea, No Chest Pain, No Abdominal Pain, No Increase Cough General: Alert Lungs: Crackles Cardiovascular: S1, S2 Abdomen: Soft, Non-tender, Other Neuro Exam: Alert Extremities: Other (Some edema on the right status post BKA on the left) Skin: Warm Labs Laboratory Tests Test 06/09/20 09:45 06/09/20 10:19 06/09/20 11:18 06/09/20 12:46 Glucose (Fingerstick) 198 mg/dL (70-99) White Blood Count 8.5 x10^3/uL (4.0-11.0) Red Blood Count 3.62 x10^6/uL (3.50-5.40) Hemoglobin 9.9 g/dL (12.0-15.5) Hematocrit 31.5 % (36.0-47.0) Mean Corpuscular Volume 87 fL (79-100) Mean Corpuscular Hemoglobin 27 pg (25-35) Mean Corpuscular Hemoglobin Concent 31 g/dL (31-37) Red Cell Distribution Width 19.5 % (11.5-14.5) Platelet Count 283 x10^3/uL (140-400) Neutrophils (%) (Auto) 81 % (31-73) Lymphocytes (%) (Auto) 11 % (24-48) Monocytes (%) (Auto) 6 % (0-9) Eosinophils (%) (Auto) 1 % (0-3) Basophils (%) (Auto) 1 % (0-3) Neutrophils # (Auto) 6.9 x10^3/uL (1.8-7.7) Lymphocytes # (Auto) 0.9 x10^3/uL (1.0-4.8) Monocytes # (Auto) 0.5 x10^3/uL (0.0-1.1) Eosinophils # (Auto) 0.1 x10^3/uL (0.0-0.7) Basophils # (Auto) 0.1 x10^3/uL (0.0-0.2) Sodium Level 144 mmol/L (136-145) Potassium Level 5.1 mmol/L (3.5-5.1) Chloride Level 104 mmol/L (98-107) Carbon Dioxide Level 36 mmol/L (21-32) Anion Gap 4 (6-14) Blood Urea Nitrogen 40 mg/dL (7-20) Creatinine 1.7 mg/dL (0.6-1.0) Estimated GFR (Cockcroft-Gault) 29.1 BUN/Creatinine Ratio 24 (6-20) Glucose Level 200 mg/dL (70-99) Lactic Acid Level 1.2 mmol/L (0.4-2.0) Calcium Level 9.0 mg/dL (8.5-10.1) Magnesium Level 2.6 mg/dL (1.8-2.4) Total Bilirubin 0.6 mg/dL (0.2-1.0) Aspartate Amino Transf (AST/SGOT) 16 U/L (15-37) Alanine Aminotransferase (ALT/SGPT) 12 U/L (14-59) Alkaline Phosphatase 92 U/L (46-116) Ammonia 21 mcmol/L (11-34) Creatine Kinase 28 U/L (26-192) Creatine Kinase MB (Mass) 2.9 ng/mL (0.0-3.6) Creatine Kinase MB Relative Index % (0-4) Troponin I Quantitative 0.910 ng/mL (0.000-0.055) ZA-Shw-M-Type Natriuretic Peptide 45510 pg/mL (0-449) Total Protein 7.5 g/dL (6.4-8.2) Albumin 2.5 g/dL (3.4-5.0) Albumin/Globulin Ratio 0.5 (1.0-1.7) Urine Collection Type U cath Urine Color Yellow Urine Clarity Cloudy Urine pH 5.0 (<5.0-8.0) Urine Specific [place] 1.015 (1.000-1.030) Urine Protein 30 mg/dL (NEG-TRACE) Urine Glucose (UA) Negative mg/dL (NEG) Urine Ketones (Stick) Negative mg/dL (NEG) Urine Blood Negative (NEG) Urine Nitrite Negative (NEG) Urine Bilirubin Negative (NEG) Urine Urobilinogen Dipstick 0.2 mg/dL (0.2 mg/dL) Urine Leukocyte Esterase Negative (NEG) Urine RBC Occ /HPF (0-2) Urine WBC Occ /HPF (0-4) Urine Squamous Epithelial Cells Mod /LPF Urine Bacteria Few /HPF (0-FEW) Urine Mucus Slight /LPF O2 Saturation 93 % (92-99) Arterial Blood pH 7.31 (7.35-7.45) Arterial Blood pCO2 at Patient Temp 71 mmHg (35-46) Arterial Blood pO2 at Patient Temp 74 mmHg (65-108) Arterial Blood HCO3 35 mmol/L (21-28) Arterial Blood Base Excess 7 mmol/L (-3-3) FiO2 32/3l nc Test 06/09/20 19:30 06/09/20 21:35 06/09/20 22:40 06/10/20 00:28 Troponin I Quantitative 0.659 ng/mL (0.000-0.055) 0.576 ng/mL (0.000-0.055) O2 Saturation 93 % (92-99) Arterial Blood pH 7.39 (7.35-7.45) Arterial Blood pCO2 at Patient Temp 68 mmHg (35-46) Arterial Blood pO2 at Patient Temp 70 mmHg (65-108) Arterial Blood HCO3 40 mmol/L (21-28) Arterial Blood Base Excess 13 mmol/L (-3-3) FiO2 35 (bipap) Glucose (Fingerstick) 163 mg/dL (70-99) Test 06/10/20 04:50 06/10/20 06:03 06/10/20 08:40 06/10/20 11:42 White Blood Count 6.5 x10^3/uL (4.0-11.0) Red Blood Count 3.37 x10^6/uL (3.50-5.40) Hemoglobin 9.0 g/dL (12.0-15.5) Hematocrit 29.0 % (36.0-47.0) Mean Corpuscular Volume 86 fL (79-100) Mean Corpuscular Hemoglobin 27 pg (25-35) Mean Corpuscular Hemoglobin Concent 31 g/dL (31-37) Red Cell Distribution Width 18.8 % (11.5-14.5) Platelet Count 250 x10^3/uL (140-400) Neutrophils (%) (Auto) 81 % (31-73) Lymphocytes (%) (Auto) 10 % (24-48) Monocytes (%) (Auto) 7 % (0-9) Eosinophils (%) (Auto) 1 % (0-3) Basophils (%) (Auto) 1 % (0-3) Neutrophils # (Auto) 5.3 x10^3/uL (1.8-7.7) Lymphocytes # (Auto) 0.6 x10^3/uL (1.0-4.8) Monocytes # (Auto) 0.4 x10^3/uL (0.0-1.1) Eosinophils # (Auto) 0.1 x10^3/uL (0.0-0.7) Basophils # (Auto) 0.1 x10^3/uL (0.0-0.2) Sodium Level 143 mmol/L (136-145) Potassium Level 4.5 mmol/L (3.5-5.1) Chloride Level 104 mmol/L (98-107) Carbon Dioxide Level 38 mmol/L (21-32) Anion Gap 1 (6-14) Blood Urea Nitrogen 35 mg/dL (7-20) Creatinine 1.5 mg/dL (0.6-1.0) Estimated GFR (Cockcroft-Gault) 33.6 Glucose Level 177 mg/dL (70-99) Calcium Level 8.4 mg/dL (8.5-10.1) Magnesium Level 2.2 mg/dL (1.8-2.4) Glucose (Fingerstick) 193 mg/dL (70-99) 226 mg/dL (70-99) O2 Saturation 93 % (92-99) Arterial Blood pH 7.46 (7.35-7.45) Arterial Blood pCO2 at Patient Temp 55 mmHg (35-46) Arterial Blood pO2 at Patient Temp 65 mmHg (65-108) Arterial Blood HCO3 38 mmol/L (21-28) Arterial Blood Base Excess 12 mmol/L (-3-3) FiO2 35% bipap Test 06/10/20 17:04 06/10/20 20:39 06/11/20 07:15 06/11/20 07:52 Glucose (Fingerstick) 204 mg/dL (70-99) 257 mg/dL (70-99) 144 mg/dL (70-99) White Blood Count 7.8 x10^3/uL (4.0-11.0) Red Blood Count 3.66 x10^6/uL (3.50-5.40) Hemoglobin 9.9 g/dL (12.0-15.5) Hematocrit 31.6 % (36.0-47.0) Mean Corpuscular Volume 86 fL (79-100) Mean Corpuscular Hemoglobin 27 pg (25-35) Mean Corpuscular Hemoglobin Concent 32 g/dL (31-37) Red Cell Distribution Width 19.1 % (11.5-14.5) Platelet Count 240 x10^3/uL (140-400) Neutrophils (%) (Auto) 79 % (31-73) Lymphocytes (%) (Auto) 11 % (24-48) Monocytes (%) (Auto) 9 % (0-9) Eosinophils (%) (Auto) 1 % (0-3) Basophils (%) (Auto) 1 % (0-3) Neutrophils # (Auto) 6.2 x10^3/uL (1.8-7.7) Lymphocytes # (Auto) 0.9 x10^3/uL (1.0-4.8) Monocytes # (Auto) 0.7 x10^3/uL (0.0-1.1) Eosinophils # (Auto) 0.1 x10^3/uL (0.0-0.7) Basophils # (Auto) 0.1 x10^3/uL (0.0-0.2) Sodium Level 142 mmol/L (136-145) Potassium Level 4.2 mmol/L (3.5-5.1) Chloride Level 101 mmol/L (98-107) Carbon Dioxide Level 41 mmol/L (21-32) Anion Gap 0 (6-14) Blood Urea Nitrogen 34 mg/dL (7-20) Creatinine 1.4 mg/dL (0.6-1.0) Estimated GFR (Cockcroft-Gault) 36.4 Glucose Level 143 mg/dL (70-99) Calcium Level 8.6 mg/dL (8.5-10.1) Magnesium Level 2.1 mg/dL (1.8-2.4) Laboratory Tests Test 06/10/20 08:40 06/10/20 11:42 06/10/20 17:04 06/10/20 20:39 O2 Saturation 93 % (92-99) Arterial Blood pH 7.46 (7.35-7.45) Arterial Blood pCO2 at Patient Temp 55 mmHg (35-46) Arterial Blood pO2 at Patient Temp 65 mmHg (65-108) Arterial Blood HCO3 38 mmol/L (21-28) Arterial Blood Base Excess 12 mmol/L (-3-3) FiO2 35% bipap Glucose (Fingerstick) 226 mg/dL (70-99) 204 mg/dL (70-99) 257 mg/dL (70-99) Test 06/11/20 07:15 06/11/20 07:52 White Blood Count 7.8 x10^3/uL (4.0-11.0) Red Blood Count 3.66 x10^6/uL (3.50-5.40) Hemoglobin 9.9 g/dL (12.0-15.5) Hematocrit 31.6 % (36.0-47.0) Mean Corpuscular Volume 86 fL (79-100) Mean Corpuscular Hemoglobin 27 pg (25-35) Mean Corpuscular Hemoglobin Concent 32 g/dL (31-37) Red Cell Distribution Width 19.1 % (11.5-14.5) Platelet Count 240 x10^3/uL (140-400) Neutrophils (%) (Auto) 79 % (31-73) Lymphocytes (%) (Auto) 11 % (24-48) Monocytes (%) (Auto) 9 % (0-9) Eosinophils (%) (Auto) 1 % (0-3) Basophils (%) (Auto) 1 % (0-3) Neutrophils # (Auto) 6.2 x10^3/uL (1.8-7.7) Lymphocytes # (Auto) 0.9 x10^3/uL (1.0-4.8) Monocytes # (Auto) 0.7 x10^3/uL (0.0-1.1) Eosinophils # (Auto) 0.1 x10^3/uL (0.0-0.7) Basophils # (Auto) 0.1 x10^3/uL (0.0-0.2) Sodium Level 142 mmol/L (136-145) Potassium Level 4.2 mmol/L (3.5-5.1) Chloride Level 101 mmol/L (98-107) Carbon Dioxide Level 41 mmol/L (21-32) Anion Gap 0 (6-14) Blood Urea Nitrogen 34 mg/dL (7-20) Creatinine 1.4 mg/dL (0.6-1.0) Estimated GFR (Cockcroft-Gault) 36.4 Glucose Level 143 mg/dL (70-99) Calcium Level 8.6 mg/dL (8.5-10.1) Magnesium Level 2.1 mg/dL (1.8-2.4) Glucose (Fingerstick) 144 mg/dL (70-99) Medications Active Scripts Medications Dose Route/Sig Max Daily Dose Days Date Category Dose Instructions Admelog (Insulin Lispro) 100 Unit/1 Ml Vial 6 Units SQ TIDAC 06/04/20 Rx hold if blood sugar less than 90 before a meal Lantus (Insulin Glargine,Hum.rec.anlog) 100 Unit/1 Ml Vial 14 Unit SQ QHS 06/04/20 Rx Klor-Con M20 (Potassium Chloride) 20 Meq Tab.er.prt 20 Meq PO DAILY 06/04/20 Rx Amlodipine Besylate 5 Mg Tablet 2.5 Mg PO DAILY 06/04/20 Rx Zyvox (Linezolid) 600 Mg Tablet 600 Mg PO BID 7 06/04/20 Rx Cefdinir 300 Mg Capsule 300 Mg PO BID 7 06/04/20 Rx Nyamyc (Nystatin) 15 Gm Powder 1 Renee TP BID 05/12/20 Rx Stool Soft-Stimulant Lax Tab (Sennosides/Docusate Sodium) 1 Each Tablet 2 Tab PO DAILY 05/12/20 Rx Furosemide 40 Mg Tablet 40 Mg PO DAILY 05/12/20 Rx Gabapentin 300 Mg Capsule 300 Mg PO BID 05/12/20 Rx Metoprolol Tartrate 25 Mg Tablet 25 Mg PO BID 05/12/20 Rx Feosol (Ferrous Sulfate) 325 Mg Tablet 325 Mg PO QODAY 05/12/20 Rx Aspirin 81 Mg Tab.chew 81 Mg PO HS 05/03/20 Reported Synthroid (Levothyroxine Sodium) 150 Mcg Tablet 150 Mcg PO DAILY06 3/15/20 Rx Allopurinol 100 Mg Tablet 100 Mg PO DAILY 05/21/19 Rx Paroxetine Hcl 20 Mg Tablet 20 Mg PO DAILY 05/21/19 Rx Atorvastatin Calcium 10 Mg Tablet 10 Mg PO QHS 05/21/19 Rx Tylenol (Acetaminophen) 325 Mg Tablet 650 Mg PO PRN Q4HRS 05/19/13 Reported Impression . IMPRESSION: 1. Nrybr-lt-zeyuudi hypercapnic and hypoxic respiratory failure secondary to dneib-ua-ivjzkva biventricular heart failure. 2. The patient with previous right and left heart catheterization in May of this year. She had a pulmonary artery systolic pressure of 67 with a pulmonary capillary wedge pressure of 28. She had left ventricular end-diastolic pressure of 44 and 60% stenosis of left anterior descending. She had evidence of biventricular failure and now comes in with another episode of [id number] biventricular failure. 3. History of obstructive sleep apnea/morbid obesity/underlying obesity hypoventilation syndrome. Noncompliant to CPAP. 4. Anasarca. 5. Chronic kidney disease, stage 3. 6. Diabetes mellitus. 7. History of coronary artery disease with 60% left anterior descending disease based on previous catheterization. 8. Cellulitis of the right leg. 9. History of recent right groin hematoma following cardiac catheterization. 10. Peripheral vascular disease. 11. Left below-knee amputation. Chest x-ray report IMPRESSION: 1. Right basilar airspace disease is improved. 2. Probable small right pleural effusion. 3. There is increased left basilar airspace disease. Plan . 4/6 updated Oxygen per nasal cannula throughout the day Continue as needed BiPAP Chest x-ray reviewed, improved. Diuresis Antibiotics per PCP 4/5 RECOMMENDATIONS: 1. The patient's ABGs have shown improvement with BiPAP. 2. We will use BiPAP at bedtime and p.r.n. during the day. 3. We would recommend cautious diuresis, keeping an eye on her renal function. 4. Follow Cardiology recommendation. 5. Antibiotics were given on admission. We will leave up to PCP. Pulmonary murguia, chest x-ray appears more suggestive of heart failure. She does not have a fever and does not have leukocytosis. Follow up chest x-ray post diuresis in the next 48 hours. 6. I would recommend discussion of advanced directives. 7. We will follow along with you. 8. Discussed with RN and RT. RYNE LIN MD Jun 11, 2020 08:13
[2020-06-11] MEDS: SENNOSIDES/DOCUSATE 8.6/50MG TABLET. PO SCH (08:53)
[2020-06-11] MEDS: GABAPENTIN 300 MG CAPSULE. PO SCH (08:53)
[2020-06-11] MEDS: PARoxetine 20 MG TABLET PO SCH (08:53)
[2020-06-11] MEDS: METOPROLOL TART IMMED RELEASE 25 MG TABLET. PO SCH ×2 (08:53→21:08)
[2020-06-11] MEDS: FUROSEMIDE 40 MG/4 ML VIAL. IVP SCH ×2 (08:53→15:02)
[2020-06-11] MEDS: LACTOBACILLUS RHAMNOSUS GG 1 CAPSULE. PO SCH ×2 (08:53→21:08)
[2020-06-11] MEDS: ALLOPURINOL 100 MG TABLET. PO SCH (08:54)
[2020-06-11] MEDS: amLODIPine BESYLATE 5 MG TABLET PO SCH (08:54)
[2020-06-11] MEDS: NYSTATIN TOPICAL POWDER 15GM BOTTLE. TP SCH ×2 (09:00→21:16)
--- NOTE | 2020-06-11 10:04 | PDOC ---
FARHANA HOFFMAN [employer] DEVELOPER 06/11/20 1004: CARDIO Progress Notes Date and Time Date of Service 06/11/20 Time of Evaluation 1000 Subjective Subjective: No Chest Pain, No shortness of breath, No Palpitations Vitals Vitals Vital Signs Date Time Temp Pulse Resp B/P (MAP) Pulse Ox O2 Delivery O2 Flow Rate FiO2 06/11/20 08:54 73 154/61 06/11/20 07:00 97.3 18 90 Nasal Cannula 3.0 97.3 Weight Weight [ ] Input and Output Intake and Output Intake and Output 06/11/20 07:00 Intake Total 610 ml Output Total 3100 ml Balance -2490 ml Intake Oral 610 ml Output Urine Total 3100 ml Laboratory Labs Laboratory Tests Test 06/10/20 11:42 06/10/20 17:04 06/10/20 20:39 06/11/20 07:15 Glucose (Fingerstick) 226 mg/dL (70-99) 204 mg/dL (70-99) 257 mg/dL (70-99) White Blood Count 7.8 x10^3/uL (4.0-11.0) Red Blood Count 3.66 x10^6/uL (3.50-5.40) Hemoglobin 9.9 g/dL (12.0-15.5) Hematocrit 31.6 % (36.0-47.0) Mean Corpuscular Volume 86 fL (79-100) Mean Corpuscular Hemoglobin 27 pg (25-35) Mean Corpuscular Hemoglobin Concent 32 g/dL (31-37) Red Cell Distribution Width 19.1 % (11.5-14.5) Platelet Count 240 x10^3/uL (140-400) Neutrophils (%) (Auto) 79 % (31-73) Lymphocytes (%) (Auto) 11 % (24-48) Monocytes (%) (Auto) 9 % (0-9) Eosinophils (%) (Auto) 1 % (0-3) Basophils (%) (Auto) 1 % (0-3) Neutrophils # (Auto) 6.2 x10^3/uL (1.8-7.7) Lymphocytes # (Auto) 0.9 x10^3/uL (1.0-4.8) Monocytes # (Auto) 0.7 x10^3/uL (0.0-1.1) Eosinophils # (Auto) 0.1 x10^3/uL (0.0-0.7) Basophils # (Auto) 0.1 x10^3/uL (0.0-0.2) Sodium Level 142 mmol/L (136-145) Potassium Level 4.2 mmol/L (3.5-5.1) Chloride Level 101 mmol/L (98-107) Carbon Dioxide Level 41 mmol/L (21-32) Anion Gap 0 (6-14) Blood Urea Nitrogen 34 mg/dL (7-20) Creatinine 1.4 mg/dL (0.6-1.0) Estimated GFR (Cockcroft-Gault) 36.4 Glucose Level 143 mg/dL (70-99) Calcium Level 8.6 mg/dL (8.5-10.1) Magnesium Level 2.1 mg/dL (1.8-2.4) Test 06/11/20 07:52 Glucose (Fingerstick) 144 mg/dL (70-99) Microbiology Micro Microbiology 06/09/20 Blood Culture - Preliminary, Resulted NO GROWTH AFTER 1 DAY Physical Exam HEENT: Neck Supple W Full Motion Chest: Symmetric LUNGS: Other (diminished bases) Heart: RRR Abdomen: Soft N/T, Other (obese) Extremities: Other (anasarca, left bka ) Neurology: follow commands, confused, other (drowsy, awakes to conversation ) Assessment Assessment 1. Acute on chronic respiratory failure; multifactorial with a/c CHF, untreated LULI, pulmHTN, and probable obesity-hypoventilation syndrome 2. Acute on chronic diastolic CHF; recent echo with preserved LV systolic function 3. Metabolic encephalopathy; CT head without acute findings 4. Mild troponin elevation; peak 0.9. Most probable type II, demand ischemia in setting of above. 5. CAD; recent cath showed 60% stenosis involving LAD with negative IFR and 100% LEAD PRODUCER involving moderate caliber obtuse marginal branch of left circumflex artery with left to left collaterals, being managed medically. 6. NILDA on CKD 7. Hypertension: Controlled 8. Hyperlipidemia: statin 9. Hypothyroidism: Continue levothyroxine 10. Arrhythmia; brief burst of NSVT noted on tele. Mg WNL. 11. Diabetes mellitus type 2: Treat per IM 12. PAD s/p left BKA 13. Right groin hematoma post Angio-Seal failure after cardiac cath last month. stable Recommendations Lasix therapy. Monitor renal function Secondary prevention including ASA, statin, BB therapy Encouraged use of home CPAP and compliance with diuretic therapy (patient does not like to take as it makes her urinate frequently) Family considering Hospice Supportive care Justicifation of Admission Dx: Justifications for Admission: Justification of Admission Dx: N/A JAY SMYTH MD 06/11/202045: CARDIO Progress Notes Assessment Assessment Patient seen and examined. Agree with TRAINING AND DEVELOPMENT DIRECTOR's assessment and plan. MS changes probably secondary to metabolic encephalopathy - improved since admission Continue diuresis for mild acute on chr diastolic HF - monitor BUN/Cr CAD clinically stable - slight trop elevation prob demand ischemia Right groin hematoma and PAD stable Family considering hospice FARHANA HOFFMAN APRN Jun 11, 2020 10:04 JAY SMYTH MD Jun 11, 2020 20:46
--- NOTE | 2020-06-11 10:05 | PDOC ---
PROGRESS NOTES Date of Service DATE: 06/11/20 TIME: 10:01 Subjective Subjective she is somnolent but arousable and confused. ate some breakfast. ABG better yesterday. cxr not done yet, she had a good diuresis yesterday labs and blood sugars reviewed, Objective Objective Vital Signs Date Time Temp Pulse Resp B/P (MAP) Pulse Ox O2 Delivery O2 Flow Rate FiO2 06/11/20 08:54 73 154/61 06/11/20 07:00 97.3 18 90 Nasal Cannula 3.0 97.3 Intake and Output 06/11/20 07:00 Intake Total 610 ml Output Total 3100 ml Balance -2490 ml Intake Oral 610 ml Output Urine Total 3100 ml Physical Exam Abdomen: Soft, Other (obese) Heart: Regular rate, Normal S1, Normal S2 Extremities: Other (2 plus edema right thigh and 1 plus edema lower right leg. left BKA) General: Other (sleeping but arousable) HEENT: Atraumatic Lungs: Other (clear anteriorly) Neuro: Other (sleepy and confused) Psych/Mental Status: Mood NL Skin: No rashes, Other (venous stasis changes RLE) Assessment Assessment Problems1. Acute on chronic diastolic congestive heart failure. 2. Metabolic encephalopathy multifactorial and also secondary to CO2 narcosis. ct head negative 3. Acute on chronic hypoxic and hypercarbic respiratory failure. 4. Obstructive sleep apnea, CPAP noncompliant. 5. Suspected obesity hypoventilation syndrome. 6. Anasarca due to congestive heart failure. 7. Chronic kidney disease stage 3. 8. Diabetes mellitus type 2, on insulin with nephropathy and peripheral neuropathy. 9. Coronary artery disease. 10. Hypertension. 11. Hyperlipidemia. 12. Recent cellulitis of right leg. treated and resolved 13. Morbid obesity. 14. Recent large right groin hematoma following a cardiac catheterization 15. Mild peripheral arterial disease. 16. History of a left below-knee amputation. 17. Severe protein-calorie malnutrition. 18. Anemia of chronic disease. Medical Problems: (1) Acute exacerbation of CHF (congestive heart failure) Status: Acute (2) Altered mental status Status: Acute (3) Elevated troponin Status: Acute Plan Plan of Care continue iv lasix and erickson PT and OT continue humalog insulin sliding scale telemetry lab tomorrow continue oxygen cxr Comment Review of Relevant I have reviewed the following items helio (where applicable) has been applied. Labs Laboratory Tests Test 06/09/20 10:19 06/09/20 11:18 06/09/20 12:46 06/09/20 19:30 White Blood Count 8.5 x10^3/uL (4.0-11.0) Red Blood Count 3.62 x10^6/uL (3.50-5.40) Hemoglobin 9.9 g/dL (12.0-15.5) Hematocrit 31.5 % (36.0-47.0) Mean Corpuscular Volume 87 fL (79-100) Mean Corpuscular Hemoglobin 27 pg (25-35) Mean Corpuscular Hemoglobin Concent 31 g/dL (31-37) Red Cell Distribution Width 19.5 % (11.5-14.5) Platelet Count 283 x10^3/uL (140-400) Neutrophils (%) (Auto) 81 % (31-73) Lymphocytes (%) (Auto) 11 % (24-48) Monocytes (%) (Auto) 6 % (0-9) Eosinophils (%) (Auto) 1 % (0-3) Basophils (%) (Auto) 1 % (0-3) Neutrophils # (Auto) 6.9 x10^3/uL (1.8-7.7) Lymphocytes # (Auto) 0.9 x10^3/uL (1.0-4.8) Monocytes # (Auto) 0.5 x10^3/uL (0.0-1.1) Eosinophils # (Auto) 0.1 x10^3/uL (0.0-0.7) Basophils # (Auto) 0.1 x10^3/uL (0.0-0.2) Sodium Level 144 mmol/L (136-145) Potassium Level 5.1 mmol/L (3.5-5.1) Chloride Level 104 mmol/L (98-107) Carbon Dioxide Level 36 mmol/L (21-32) Anion Gap 4 (6-14) Blood Urea Nitrogen 40 mg/dL (7-20) Creatinine 1.7 mg/dL (0.6-1.0) Estimated GFR (Cockcroft-Gault) 29.1 BUN/Creatinine Ratio 24 (6-20) Glucose Level 200 mg/dL (70-99) Lactic Acid Level 1.2 mmol/L (0.4-2.0) Calcium Level 9.0 mg/dL (8.5-10.1) Magnesium Level 2.6 mg/dL (1.8-2.4) Total Bilirubin 0.6 mg/dL (0.2-1.0) Aspartate Amino Transf (AST/SGOT) 16 U/L (15-37) Alanine Aminotransferase (ALT/SGPT) 12 U/L (14-59) Alkaline Phosphatase 92 U/L (46-116) Ammonia 21 mcmol/L (11-34) Creatine Kinase 28 U/L (26-192) Creatine Kinase MB (Mass) 2.9 ng/mL (0.0-3.6) Creatine Kinase MB Relative Index % (0-4) Troponin I Quantitative 0.910 ng/mL (0.000-0.055) 0.659 ng/mL (0.000-0.055) CF-Ohr-K-Type Natriuretic Peptide 95818 pg/mL (0-449) Total Protein 7.5 g/dL (6.4-8.2) Albumin 2.5 g/dL (3.4-5.0) Albumin/Globulin Ratio 0.5 (1.0-1.7) Urine Collection Type U cath Urine Color Yellow Urine Clarity Cloudy Urine pH 5.0 (<5.0-8.0) Urine Specific [place] 1.015 (1.000-1.030) Urine Protein 30 mg/dL (NEG-TRACE) Urine Glucose (UA) Negative mg/dL (NEG) Urine Ketones (Stick) Negative mg/dL (NEG) Urine Blood Negative (NEG) Urine Nitrite Negative (NEG) Urine Bilirubin Negative (NEG) Urine Urobilinogen Dipstick 0.2 mg/dL (0.2 mg/dL) Urine Leukocyte Esterase Negative (NEG) Urine RBC Occ /HPF (0-2) Urine WBC Occ /HPF (0-4) Urine Squamous Epithelial Cells Mod /LPF Urine Bacteria Few /HPF (0-FEW) Urine Mucus Slight /LPF O2 Saturation 93 % (92-99) Arterial Blood pH 7.31 (7.35-7.45) Arterial Blood pCO2 at Patient Temp 71 mmHg (35-46) Arterial Blood pO2 at Patient Temp 74 mmHg (65-108) Arterial Blood HCO3 35 mmol/L (21-28) Arterial Blood Base Excess 7 mmol/L (-3-3) FiO2 32/3l nc Test 06/09/20 21:35 06/09/20 22:40 06/10/20 00:28 06/10/20 04:50 O2 Saturation 93 % (92-99) Arterial Blood pH 7.39 (7.35-7.45) Arterial Blood pCO2 at Patient Temp 68 mmHg (35-46) Arterial Blood pO2 at Patient Temp 70 mmHg (65-108) Arterial Blood HCO3 40 mmol/L (21-28) Arterial Blood Base Excess 13 mmol/L (-3-3) FiO2 35 (bipap) Troponin I Quantitative 0.576 ng/mL (0.000-0.055) Glucose (Fingerstick) 163 mg/dL (70-99) White Blood Count 6.5 x10^3/uL (4.0-11.0) Red Blood Count 3.37 x10^6/uL (3.50-5.40) Hemoglobin 9.0 g/dL (12.0-15.5) Hematocrit 29.0 % (36.0-47.0) Mean Corpuscular Volume 86 fL (79-100) Mean Corpuscular Hemoglobin 27 pg (25-35) Mean Corpuscular Hemoglobin Concent 31 g/dL (31-37) Red Cell Distribution Width 18.8 % (11.5-14.5) Platelet Count 250 x10^3/uL (140-400) Neutrophils (%) (Auto) 81 % (31-73) Lymphocytes (%) (Auto) 10 % (24-48) Monocytes (%) (Auto) 7 % (0-9) Eosinophils (%) (Auto) 1 % (0-3) Basophils (%) (Auto) 1 % (0-3) Neutrophils # (Auto) 5.3 x10^3/uL (1.8-7.7) Lymphocytes # (Auto) 0.6 x10^3/uL (1.0-4.8) Monocytes # (Auto) 0.4 x10^3/uL (0.0-1.1) Eosinophils # (Auto) 0.1 x10^3/uL (0.0-0.7) Basophils # (Auto) 0.1 x10^3/uL (0.0-0.2) Sodium Level 143 mmol/L (136-145) Potassium Level 4.5 mmol/L (3.5-5.1) Chloride Level 104 mmol/L (98-107) Carbon Dioxide Level 38 mmol/L (21-32) Anion Gap 1 (6-14) Blood Urea Nitrogen 35 mg/dL (7-20) Creatinine 1.5 mg/dL (0.6-1.0) Estimated GFR (Cockcroft-Gault) 33.6 Glucose Level 177 mg/dL (70-99) Calcium Level 8.4 mg/dL (8.5-10.1) Magnesium Level 2.2 mg/dL (1.8-2.4) Test 06/10/20 06:03 06/10/20 08:40 06/10/20 11:42 06/10/20 17:04 Glucose (Fingerstick) 193 mg/dL (70-99) 226 mg/dL (70-99) 204 mg/dL (70-99) O2 Saturation 93 % (92-99) Arterial Blood pH 7.46 (7.35-7.45) Arterial Blood pCO2 at Patient Temp 55 mmHg (35-46) Arterial Blood pO2 at Patient Temp 65 mmHg (65-108) Arterial Blood HCO3 38 mmol/L (21-28) Arterial Blood Base Excess 12 mmol/L (-3-3) FiO2 35% bipap Test 06/10/20 20:39 06/11/20 07:15 06/11/20 07:52 Glucose (Fingerstick) 257 mg/dL (70-99) 144 mg/dL (70-99) White Blood Count 7.8 x10^3/uL (4.0-11.0) Red Blood Count 3.66 x10^6/uL (3.50-5.40) Hemoglobin 9.9 g/dL (12.0-15.5) Hematocrit 31.6 % (36.0-47.0) Mean Corpuscular Volume 86 fL (79-100) Mean Corpuscular Hemoglobin 27 pg (25-35) Mean Corpuscular Hemoglobin Concent 32 g/dL (31-37) Red Cell Distribution Width 19.1 % (11.5-14.5) Platelet Count 240 x10^3/uL (140-400) Neutrophils (%) (Auto) 79 % (31-73) Lymphocytes (%) (Auto) 11 % (24-48) Monocytes (%) (Auto) 9 % (0-9) Eosinophils (%) (Auto) 1 % (0-3) Basophils (%) (Auto) 1 % (0-3) Neutrophils # (Auto) 6.2 x10^3/uL (1.8-7.7) Lymphocytes # (Auto) 0.9 x10^3/uL (1.0-4.8) Monocytes # (Auto) 0.7 x10^3/uL (0.0-1.1) Eosinophils # (Auto) 0.1 x10^3/uL (0.0-0.7) Basophils # (Auto) 0.1 x10^3/uL (0.0-0.2) Sodium Level 142 mmol/L (136-145) Potassium Level 4.2 mmol/L (3.5-5.1) Chloride Level 101 mmol/L (98-107) Carbon Dioxide Level 41 mmol/L (21-32) Anion Gap 0 (6-14) Blood Urea Nitrogen 34 mg/dL (7-20) Creatinine 1.4 mg/dL (0.6-1.0) Estimated GFR (Cockcroft-Gault) 36.4 Glucose Level 143 mg/dL (70-99) Calcium Level 8.6 mg/dL (8.5-10.1) Magnesium Level 2.1 mg/dL (1.8-2.4) Laboratory Tests Test 06/10/20 11:42 06/10/20 17:04 06/10/20 20:39 06/11/20 07:15 Glucose (Fingerstick) 226 mg/dL (70-99) 204 mg/dL (70-99) 257 mg/dL (70-99) White Blood Count 7.8 x10^3/uL (4.0-11.0) Red Blood Count 3.66 x10^6/uL (3.50-5.40) Hemoglobin 9.9 g/dL (12.0-15.5) Hematocrit 31.6 % (36.0-47.0) Mean Corpuscular Volume 86 fL (79-100) Mean Corpuscular Hemoglobin 27 pg (25-35) Mean Corpuscular Hemoglobin Concent 32 g/dL (31-37) Red Cell Distribution Width 19.1 % (11.5-14.5) Platelet Count 240 x10^3/uL (140-400) Neutrophils (%) (Auto) 79 % (31-73) Lymphocytes (%) (Auto) 11 % (24-48) Monocytes (%) (Auto) 9 % (0-9) Eosinophils (%) (Auto) 1 % (0-3) Basophils (%) (Auto) 1 % (0-3) Neutrophils # (Auto) 6.2 x10^3/uL (1.8-7.7) Lymphocytes # (Auto) 0.9 x10^3/uL (1.0-4.8) Monocytes # (Auto) 0.7 x10^3/uL (0.0-1.1) Eosinophils # (Auto) 0.1 x10^3/uL (0.0-0.7) Basophils # (Auto) 0.1 x10^3/uL (0.0-0.2) Sodium Level 142 mmol/L (136-145) Potassium Level 4.2 mmol/L (3.5-5.1) Chloride Level 101 mmol/L (98-107) Carbon Dioxide Level 41 mmol/L (21-32) Anion Gap 0 (6-14) Blood Urea Nitrogen 34 mg/dL (7-20) Creatinine 1.4 mg/dL (0.6-1.0) Estimated GFR (Cockcroft-Gault) 36.4 Glucose Level 143 mg/dL (70-99) Calcium Level 8.6 mg/dL (8.5-10.1) Magnesium Level 2.1 mg/dL (1.8-2.4) Test 06/11/20 07:52 Glucose (Fingerstick) 144 mg/dL (70-99) Microbiology 06/09/20 Blood Culture - Preliminary, Resulted NO GROWTH AFTER 1 DAY Medications Current Medications Aspirin (Aspirin Rectal Supp) 300 mg 1X ONCE [place] Last administered on 06/09/20at 14:30; Start 06/09/20 at 12:30; Stop 06/09/20 at 12:35; Status DC Bumetanide (Bumex) 1 mg 1X ONCE IV Last administered on 06/09/20at 14:43; Start 06/09/20 at 12:30; Stop 06/09/20 at 12:35; Status DC Insulin Human Lispro (HumaLOG) 0-5 UNITS TIDWMEALS SQ ; Start 06/09/20 at 17:00; Stop 06/09/20 at 21:16; Status DC Dextrose (Dextrose 50%-Water Syringe) 12.5 gm PRN Q15MIN PRN IV SEE COMMENTS; Start 06/09/20 at 13:15 Famotidine (Pepcid Vial) 20 mg DAILY IVP ; Start 06/10/20 at 09:00; Stop 06/09/20 at 14:28; Status DC Furosemide (Lasix) 80 mg BID92 IVP ; Start 06/09/20 at 14:00; Stop 06/09/20 at 14:28; Status DC Linezolid/Dextrose 300 ml @ 300 mls/hr Q12HR IV ; Start 06/09/20 at 14:30; Stop 06/09/20 at 18:28; Status DC Meropenem 500 mg/ Sodium Chloride 50 ml @ 100 mls/hr Q8HRS IV ; Start 06/09/20 at 14:00; Stop 06/09/20 at 18:29; Status DC Insulin Human Lispro (HumaLOG) 0-6 UNITS BG 300-39... TIDWMEALS SQ Last administered on 06/10/20at 17:26; Start 06/09/20 at 17:00 Bisacodyl (Dulcolax Supp) 10 mg PRN DAILY PRN [place] CONSTIPATION; Start 06/09/20 at 14:00 Acetaminophen (Tylenol Supp) 650 mg PRN Q6HRS PRN W[place] MILD PAIN / TEMP > 100.3'F; Start 06/09/20 at 14:00 Furosemide (Lasix) 40 mg BID92 IVP Last administered on 06/11/20at 08:53; Start 06/09/20 at 15:00 Dextrose/Sodium Chloride 1,000 ml @ 30 mls/hr CONT PRN IV ; Start 06/09/20 at 14:30; Stop 06/10/20 at 01:57; Status DC Linezolid/Dextrose 300 ml @ 300 mls/hr Q12HR IV Last administered on 06/09/20at 20:37; Start 06/09/20 at 21:00; Stop 06/10/20 at 08:13; Status DC Meropenem 500 mg/ Sodium Chloride 50 ml @ 100 mls/hr Q8H IV Last administered on 06/10/20at 02:04; Start 06/09/20 at 18:30; Stop 06/10/20 at 08:13; Status DC Lorazepam (Ativan Inj) 0.5 mg PRN Q6HRS PRN IVP ANXIETY / AGITATION Last administered on 06/11/20at 01:11; Start 06/09/20 at 21:15 Dextrose/Sodium Chloride 1,000 ml @ 30 mls/hr CONT PRN PRN IV SEE IO; Start 06/10/20 at 02:00; Stop 06/10/20 at 11:57; Status DC Pharmacy Consult (C.diff Med Screen By Rx) 1 each 1X ONCE [facility] ; Start 06/10/20 at 02:45; Stop 06/10/20 at 02:46; Status Cancel Lactobacillus Rhamnosus (Culturelle) 1 cap BID PO Last administered on 06/11/20at 08:53; Start 06/10/20 at 09:00 Hydralazine HCl (Apresoline Inj) 10 mg PRN Q4HRS PRN IVP ELEVATED BP, SEE COMMENTS Last administered on 06/10/20at 08:20; Start 06/10/20 at 08:00 Acetaminophen (Tylenol) 650 mg PRN Q4HRS PO ; Start 06/10/20 at 09:45 Allopurinol (Zyloprim) 100 mg DAILY PO Last administered on 06/11/20at 08:54; Start 06/10/20 at 11:00 Amlodipine Besylate (Norvasc) 2.5 mg DAILY PO Last administered on 06/11/20at 08:54; Start 06/10/20 at 11:00 Aspirin (Aspirin Chewable) 81 mg HS PO Last administered on 06/10/20at 21:12; S tart 06/10/20 at 21:00 Atorvastatin Calcium (Lipitor) 10 mg QHS PO ; Start 06/10/20 at 21:00; Stop 06/10/20 at 13:13; Status DC Ferrous Sulfate (Feosol) 325 mg QODAY PO Last administered on 06/10/20at 12:26; Start 06/10/20 at 12:00 Gabapentin (Neurontin) 300 mg BID PO Last administered on 06/11/20 08:53; Start 06/10/20 at 11:00 Insulin Glargine (Lantus Syringe) 14 unit QHS SQ Last administered on 06/10/20 21:14; Start 06/10/20 at 21:00 Levothyroxine Sodium (Synthroid) 150 mcg DAILY06 PO Last administered on 06/11 05:43; Start 06/11/20 at 06:00 Metoprolol Tartrate (Lopressor) 25 mg BID PO Last administered on 06/11/20 08:53; Start 06/10/20 at 11:00 Nystatin (Nystop) 1 renee BID TP Last administered on 06/11/20 09:00; Start 06/10/20 at 11:00 Paroxetine HCl (Paxil) 20 mg DAILY PO Last administered on 06/11/20 08:53; Start 06/10/20 at 09:00 Senna/Docusate Sodium (Senna Plus) 2 tab DAILY PO Last administered on 06/11/20 08:53; Start 06/10/20 at 12:00 Atorvastatin Calcium (Lipitor) 40 mg QHS PO Last administered on 06/10/20 21:13; Start 06/10/20 at 21:00 Active Scripts Active Admelog (Insulin Lispro) 100 Unit/1 Ml Vial 6 Units SQ TIDAC hold if blood sugar less than 90 before a meal Lantus (Insulin Glargine,Hum.rec.anlog) 100 Unit/1 Ml Vial 14 Unit SQ QHS Klor-Con M20 (Potassium Chloride) 20 Meq Tab.er.prt 20 Meq PO DAILY Amlodipine Besylate 5 Mg Tablet 2.5 Mg PO DAILY Zyvox (Linezolid) 600 Mg Tablet 600 Mg PO BID 7 Days Cefdinir 300 Mg Capsule 300 Mg PO BID 7 Days Nyamyc (Nystatin) 15 Gm Powder 1 Renee TP BID Stool Soft-Stimulant Lax Tab (Sennosides/Docusate Sodium) 1 Each Tablet 2 Tab PO DAILY Furosemide 40 Mg Tablet 40 Mg PO DAILY Gabapentin 300 Mg Capsule 300 Mg PO BID Metoprolol Tartrate 25 Mg Tablet 25 Mg PO BID Feosol (Ferrous Sulfate) 325 Mg Tablet 325 Mg PO QODAY Synthroid (Levothyroxine Sodium) 150 Mcg Tablet 150 Mcg PO DAILY06 Allopurinol 100 Mg Tablet 100 Mg PO DAILY Paroxetine Hcl 20 Mg Tablet 20 Mg PO DAILY Atorvastatin Calcium 10 Mg Tablet 10 Mg PO QHS Reported Aspirin 81 Mg Tab.chew 81 Mg PO HS Tylenol (Acetaminophen) 325 Mg Tablet 650 Mg PO PRN Q4HRS Vitals/I & O Vital Sign - Last 24 Hours 06/10/20 06/10/20 06/10/20 06/10/20 10:17 10:32 10:33 11:15 Temp 97.3 97.3 Pulse 103 94 94 Resp 24 B/P (MAP) 182/82 (115) 160/67 160/67 Pulse Ox 93 93 O2 Delivery Nasal Cannula Nasal Cannula O2 Flow Rate 3.0 3.0 06/10/20 06/10/20 06/10/20 06/10/20 14:04 19:40 19:45 21:13 Temp 98.3 98.6 98.3 98.6 Pulse 70 76 72 Resp 26 22 B/P (MAP) 168/82 (110) 149/77 (101) 149/77 Pulse Ox 99 96 O2 Delivery Nasal Cannula Nasal Cannula Bi-pap O2 Flow Rate 3.0 3.0 3.0 06/10/20 06/10/20 06/11/20 06/11/20 23:00 23:25 01:36 03:00 Temp 97.1 97.2 97.1 97.2 Pulse 68 67 Resp 20 22 B/P (MAP) 105/53 (70) 136/68 (90) Pulse Ox 93 93 93 91 O2 Delivery BiPAP/CPAP BiPAP/CPAP BiPAP/CPAP BiPAP/CPAP 06/11/20 06/11/20 06/11/20 06/11/20 03:48 04:45 07:00 08:53 Temp 97.3 97.3 Pulse 73 73 Resp 18 B/P (MAP) 154/61 (92) 154/61 Pulse Ox 94 92 90 O2 Delivery BiPAP/CPAP BiPAP/CPAP Nasal Cannula O2 Flow Rate 3.0 06/11/20 08:54 Pulse 73 B/P (MAP) 154/61 Intake and Output 06/10/20 06/10/20 06/11/20 15:00 23:00 07:00 Intake Total 300 ml 310 ml Output Total 1750 ml 550 ml 800 ml Balance -1750 ml -250 ml -490 ml Justifications for Admission Other Justification TERE ALLISON MD Jun 11, 2020 10:05
--- NOTE | 2020-06-11 10:40 | PDOC ---
Infectious Disease Note Subjective Subjective Breathing is much better No complaints ROS ROS No nausea vomiting diarrhea fever Vital Sign Vital Signs Vital Signs Date Time Temp Pulse Resp B/P (MAP) Pulse Ox O2 Delivery O2 Flow Rate FiO2 06/11/20 08:54 73 154/61 06/11/20 08:00 Nasal Cannula 3.0 06/11/20 07:00 97.3 18 90 97.3 Physical Exam PHYSICAL EXAM GENERAL: Propped up in bed, alert, mod distress. HEENT: Normal conjunctivae. Oropharynx pink, moist, no lesions seen. NECK: Supple. LUNGS: Clear to auscultation. No accessory muscle use. HEART: Normal S1 and S2. ABDOMEN: Obese, soft, nontender with bowel sounds. EXTREMITIES: Previous left BKA unremarkable. Right leg edema, erythema, much improved Dressing and Tubigrip stocking in place. SKIN: Warm to touch. No signs of generalized rash. NEUROLOGIC: Alert and answering questions appropriately. PIV Labs Lab Laboratory Tests Test 06/10/20 11:42 06/10/20 17:04 06/10/20 20:39 06/11/20 07:15 Glucose (Fingerstick) 226 mg/dL (70-99) 204 mg/dL (70-99) 257 mg/dL (70-99) White Blood Count 7.8 x10^3/uL (4.0-11.0) Red Blood Count 3.66 x10^6/uL (3.50-5.40) Hemoglobin 9.9 g/dL (12.0-15.5) Hematocrit 31.6 % (36.0-47.0) Mean Corpuscular Volume 86 fL (79-100) Mean Corpuscular Hemoglobin 27 pg (25-35) Mean Corpuscular Hemoglobin Concent 32 g/dL (31-37) Red Cell Distribution Width 19.1 % (11.5-14.5) Platelet Count 240 x10^3/uL (140-400) Neutrophils (%) (Auto) 79 % (31-73) Lymphocytes (%) (Auto) 11 % (24-48) Monocytes (%) (Auto) 9 % (0-9) Eosinophils (%) (Auto) 1 % (0-3) Basophils (%) (Auto) 1 % (0-3) Neutrophils # (Auto) 6.2 x10^3/uL (1.8-7.7) Lymphocytes # (Auto) 0.9 x10^3/uL (1.0-4.8) Monocytes # (Auto) 0.7 x10^3/uL (0.0-1.1) Eosinophils # (Auto) 0.1 x10^3/uL (0.0-0.7) Basophils # (Auto) 0.1 x10^3/uL (0.0-0.2) Sodium Level 142 mmol/L (136-145) Potassium Level 4.2 mmol/L (3.5-5.1) Chloride Level 101 mmol/L (98-107) Carbon Dioxide Level 41 mmol/L (21-32) Anion Gap 0 (6-14) Blood Urea Nitrogen 34 mg/dL (7-20) Creatinine 1.4 mg/dL (0.6-1.0) Estimated GFR (Cockcroft-Gault) 36.4 Glucose Level 143 mg/dL (70-99) Calcium Level 8.6 mg/dL (8.5-10.1) Magnesium Level 2.1 mg/dL (1.8-2.4) Test 06/11/20 07:52 Glucose (Fingerstick) 144 mg/dL (70-99) Micro Microbiology 06/09/20 Blood Culture - Preliminary, Resulted NO GROWTH AFTER 2 DAYS Objective Assessment Cellulitis, right lower extremity. Hematoma, right groin follow cardiac catheterization 05/06/2020. Recent history ESBL producing Escherichia coli UTI, which has been treated. Chronic kidney disease. Peripheral arterial disease. Diabetes mellitus type 2 with peripheral neuropathy. Obesity, previous left below-knee amputation. H/o Cat exposure. None over last month. CHF Plan Plan of Care Diuresis leg looks good Supportive care HANNAH VENTURA MD Jun 11, 2020 10:40
--- NOTE | 2020-06-11 12:45 | RAD ---
XR CHEST 1V Clinical Indication: Reason: chf / Spl. Instructions: / History: Comparison: AP chest, 2 days ago. Findings: Atherosclerotic aortic arch. Cardiac size upper limits of normal. Right basilar airspace disease is s till present but improved. There is increased left basilar airspace disease, the hemidiaphragm is les s well seen. There is no pneumothorax. Probable small right pleural effusion. No acute bone abnormali ty. IMPRESSION: 1. Right basilar airspace disease is improved. 2. Probable small right pleural effusion. 3. There is increased left basilar airspace disease. Electronically signed by: Aron Collado MD (06/11/2020 12:42 PM) [id number]
--- NOTE | 2020-06-11 12:58 | NUR ---
SS following up with discharge planning. SS reviewed pt chart and discussed with pt RN. Pt is currently requiring oxygen at three liters nasal canula. Pt on IV Lasix. PT/OT recommended fdc unit. SS met with pt and family in room to discuss discharge planning. Pt's spouse, son, sister, and brother present. Pt and pt's family considering hospice for pt. Pt's family requesting that pt return to fdc unit for one to two weeks to gain some strength with transfers and mobility prior to returning to home. Pt's family requesting to return to [facility], ; fax [phone]. Pt agreeable to plan. Pt and pt's family provided with information on hospice and DPOA. SS phoned and faxed referral to [facility] as requested. SS will continue to follow for discharge planning.
--- NOTE | 2020-06-11 19:45 | NUR ---
Pt in bed assessment completed pt reoriented to surroundings ,pt c/o generalized pain will medicate pt and resume care call light in reach bed alarm set will continue to monitor pt.
[2020-06-11] MEDS: ASPIRIN CHEWABLE 81 MG TABLET. PO SCH (21:08)
[2020-06-11] MEDS: ATORVASTATIN CALCIUM 40 MG TABLET. PO SCH (21:08)
[2020-06-11] MEDS: INSULIN GLARGINE SYRINGE. SQ SCH (21:11)
[2020-06-11] MEDS ORDERED: ACETAMINOPHEN 325 MG TABLET. PO PRN (21:30)
[2020-06-12 02:57] VITALS: BP 131/69
[2020-06-12] MEDS: LEVOTHYROXINE 150 MCG TABLET PO SCH (05:45)
[2020-06-12 07:00] VITALS: BP 170/74
[2020-06-12] MEDS: INSULIN LISPRO 300 UNITS/3 ML VIAL. SQ SCH ×2 (08:00→12:00)
--- NOTE | 2020-06-12 08:12 | PDOC ---
Infectious Disease Note Subjective Subjective Breathing is much better No complaints ROS ROS Denies chest pain shortness of breath fever or pain Vital Sign Vital Signs Vital Signs Date Time Temp Pulse Resp B/P (MAP) Pulse Ox O2 Delivery O2 Flow Rate FiO2 06/12/20 07:55 Nasal Cannula 3.0 06/12/20 02:57 98.3 59 23 131/69 (89) 100 98.3 Physical Exam PHYSICAL EXAM GENERAL: Propped up in bed, alert, no distress HEENT: Normal conjunctivae. Oropharynx pink, moist, no lesions seen. NECK: Supple. LUNGS: Clear to auscultation. No accessory muscle use. HEART: Normal S1 and S2. ABDOMEN: Obese, soft, nontender with bowel sounds. EXTREMITIES: Previous left BKA unremarkable. Right leg edema, erythema, much improved Dressing and Tubigrip stocking in place. SKIN: Warm to touch. No signs of generalized rash. NEUROLOGIC: Alert and answering questions appropriately. PIV Labs Lab Laboratory Tests Test 06/11/20 12:25 06/11/20 17:15 06/11/20 21:06 06/12/20 07:53 Glucose (Fingerstick) 173 mg/dL (70-99) 169 mg/dL (70-99) 213 mg/dL (70-99) 97 mg/dL (70-99) Micro Microbiology 06/09/20 Blood Culture - Preliminary, Resulted NO GROWTH AFTER 2 DAYS Objective Assessment Cellulitis, right lower extremity. Hematoma, right groin follow cardiac catheterization 05/06/2020. Recent history ESBL producing Escherichia coli UTI, which has been treated. Chronic kidney disease. Peripheral arterial disease. Diabetes mellitus type 2 with peripheral neuropathy. Obesity, previous left below-knee amputation. H/o Cat exposure. None over last month. CHF Plan Plan of Care Diuresis leg looks good Supportive care We will sign off please call if any questions HANNAH VENTURA MD Jun 12, 2020 08:12
--- NOTE | 2020-06-12 08:45 | PDOC ---
PULMONARY PROGRESS NOTES DATE: 06/12/20 TIME: 08:44 Subjective Patient unable to wear BiPAP all night long Her CPAP from home is not functioning Vitals Vital Signs Date Time Temp Pulse Resp B/P (MAP) Pulse Ox O2 Delivery O2 Flow Rate FiO2 06/12/20 07:55 Nasal Cannula 3.0 06/12/20 02:57 98.3 59 23 131/69 (89) 100 98.3 ROS: No Nausea, No Chest Pain, No Abdominal Pain, No Increase Cough General: Alert Lungs: Crackles Cardiovascular: S1, S2 Abdomen: Soft, Non-tender, Other Neuro Exam: Alert Extremities: Other (Some edema on the right status post BKA on the left) Skin: Warm Labs Laboratory Tests Test 06/10/20 11:42 06/10/20 17:04 06/10/20 20:39 06/11/20 07:15 Glucose (Fingerstick) 226 mg/dL (70-99) 204 mg/dL (70-99) 257 mg/dL (70-99) White Blood Count 7.8 x10^3/uL (4.0-11.0) Red Blood Count 3.66 x10^6/uL (3.50-5.40) Hemoglobin 9.9 g/dL (12.0-15.5) Hematocrit 31.6 % (36.0-47.0) Mean Corpuscular Volume 86 fL (79-100) Mean Corpuscular Hemoglobin 27 pg (25-35) Mean Corpuscular Hemoglobin Concent 32 g/dL (31-37) Red Cell Distribution Width 19.1 % (11.5-14.5) Platelet Count 240 x10^3/uL (140-400) Neutrophils (%) (Auto) 79 % (31-73) Lymphocytes (%) (Auto) 11 % (24-48) Monocytes (%) (Auto) 9 % (0-9) Eosinophils (%) (Auto) 1 % (0-3) Basophils (%) (Auto) 1 % (0-3) Neutrophils # (Auto) 6.2 x10^3/uL (1.8-7.7) Lymphocytes # (Auto) 0.9 x10^3/uL (1.0-4.8) Monocytes # (Auto) 0.7 x10^3/uL (0.0-1.1) Eosinophils # (Auto) 0.1 x10^3/uL (0.0-0.7) Basophils # (Auto) 0.1 x10^3/uL (0.0-0.2) Sodium Level 142 mmol/L (136-145) Potassium Level 4.2 mmol/L (3.5-5.1) Chloride Level 101 mmol/L (98-107) Carbon Dioxide Level 41 mmol/L (21-32) Anion Gap 0 (6-14) Blood Urea Nitrogen 34 mg/dL (7-20) Creatinine 1.4 mg/dL (0.6-1.0) Estimated GFR (Cockcroft-Gault) 36.4 Glucose Level 143 mg/dL (70-99) Calcium Level 8.6 mg/dL (8.5-10.1) Magnesium Level 2.1 mg/dL (1.8-2.4) Test 06/11/20 07:52 06/11/20 12:25 06/11/20 17:15 06/11/20 21:06 Glucose (Fingerstick) 144 mg/dL (70-99) 173 mg/dL (70-99) 169 mg/dL (70-99) 213 mg/dL (70-99) Test 06/12/20 07:53 Glucose (Fingerstick) 97 mg/dL (70-99) Laboratory Tests Test 06/11/20 12:25 06/11/20 17:15 06/11/20 21:06 06/12/20 07:53 Glucose (Fingerstick) 173 mg/dL (70-99) 169 mg/dL (70-99) 213 mg/dL (70-99) 97 mg/dL (70-99) Medications Active Scripts Medications Dose Route/Sig Max Daily Dose Days Date Category Dose Instructions Admelog (Insulin Lispro) 100 Unit/1 Ml Vial 6 Units SQ TIDAC 06/04/20 Rx hold if blood sugar less than 90 before a meal Lantus (Insulin Glargine,Hum.rec.anlog) 100 Unit/1 Ml Vial 14 Unit SQ QHS 06/04/20 Rx Klor-Con M20 (Potassium Chloride) 20 Meq Tab.er.prt 20 Meq PO DAILY 06/04/20 Rx Amlodipine Besylate 5 Mg Tablet 2.5 Mg PO DAILY 06/04/20 Rx Zyvox (Linezolid) 600 Mg Tablet 600 Mg PO BID 7 06/04/20 Rx Cefdinir 300 Mg Capsule 300 Mg PO BID 7 06/04/20 Rx Nyamyc (Nystatin) 15 Gm Powder 1 Renee TP BID 05/12/20 Rx Stool Soft-Stimulant Lax Tab (Sennosides/Docusate Sodium) 1 Each Tablet 2 Tab PO DAILY 05/12/20 Rx Furosemide 40 Mg Tablet 40 Mg PO DAILY 05/12/20 Rx Gabapentin 300 Mg Capsule 300 Mg PO BID 05/12/20 Rx Metoprolol Tartrate 25 Mg Tablet 25 Mg PO BID 05/12/20 Rx Feosol (Ferrous Sulfate) 325 Mg Tablet 325 Mg PO QODAY 05/12/20 Rx Aspirin 81 Mg Tab.chew 81 Mg PO HS 05/03/20 Reported Synthroid (Levothyroxine Sodium) 150 Mcg Tablet 150 Mcg PO DAILY06 05/21/19 Rx Allopurinol 100 Mg Tablet 100 Mg PO DAILY 05/21/19 Rx Paroxetine Hcl 20 Mg Tablet 20 Mg PO DAILY 05/21/19 Rx Atorvastatin Calcium 10 Mg Tablet 10 Mg PO QHS 05/21/19 Rx Tylenol (Acetaminophen) 325 Mg Tablet 650 Mg PO PRN Q4HRS 05/19/13 Reported Impression . IMPRESSION: 1. [id number] hypercapnic and hypoxic respiratory failure secondary to [id number] biventricular heart failure. 2. The patient with previous right and left heart catheterization in May of this year. She had a pulmonary artery systolic pressure of 67 with a pulmonary capillary wedge pressure of 28. She had left ventricular end-diastolic pressure of 44 and 60% stenosis of left anterior descending. She had evidence of biventricular failure and now comes in with another episode of [id number] biventricular failure. 3. History of obstructive sleep apnea/morbid obesity/underlying obesity hypoventilation syndrome. Noncompliant to CPAP. 4. Anasarca. 5. Chronic kidney disease, stage 3. 6. Diabetes mellitus. 7. History of coronary artery disease with 60% left anterior descending disease based on previous catheterization. 8. Cellulitis of the right leg. 9. History of recent right groin hematoma following cardiac catheterization. 10. Peripheral vascular disease. 11. Left below-knee amputation. Chest x-ray report IMPRESSION: 1. Right basilar airspace disease is improved. 2. Probable small right pleural effusion. 3. There is increased left basilar airspace disease. Plan . Updated 06/12 Patient states that she is only able to tolerate BiPAP approximately 4 hours Her home CPAP unit is currently nonfunctional, will look into replacing the home CPAP unit Diuresis requiring IV Lasix 06/11 updated Oxygen per nasal cannula throughout the day Continue as needed BiPAP Chest x-ray reviewed, improved. Diuresis Antibiotics per PCP RYNE LIN MD Jun 12, 2020 08:44
[2020-06-12] MEDS: FERROUS SULFATE 325 MG TABLET. PO SCH ×2 (09:00→09:06)
--- NOTE | 2020-06-12 09:01 | RAD ---
XR CHEST 1V 06/12/2020 7:49 AM INDICATION: CHF COMPARISON: 06/11/2020 TECHNIQUE: Portable frontal view of the chest is provided. FINDINGS: The cardiomediastinal silhouette is similar in appearance. Mild pulmonary vascular congestion. Trace of pleural effusion with adjacent compressive atelectasis versus infiltrate. No pneumothorax. No suspicious osseous abnormality. IMPRESSION: Aeration of the lungs appears similar to the prior examination. Electronically signed by: Lakia Rain MD (06/12/2020 8:59 AM) [id number]
[2020-06-12] MEDS: SENNOSIDES/DOCUSATE 8.6/50MG TABLET. PO SCH (09:06)
[2020-06-12] MEDS: ALLOPURINOL 100 MG TABLET. PO SCH (09:06)
[2020-06-12] MEDS: amLODIPine BESYLATE 5 MG TABLET PO SCH (09:06)
[2020-06-12] MEDS: LACTOBACILLUS RHAMNOSUS GG 1 CAPSULE. PO SCH (09:06)
[2020-06-12] MEDS: PARoxetine 20 MG TABLET PO SCH (09:06)
[2020-06-12] MEDS: METOPROLOL TART IMMED RELEASE 25 MG TABLET. PO SCH (09:07)
[2020-06-12] MEDS: FUROSEMIDE 40 MG/4 ML VIAL. IVP SCH (09:07)
[2020-06-12] MEDS: NYSTATIN TOPICAL POWDER 15GM BOTTLE. TP SCH (09:08)
--- NOTE | 2020-06-12 10:18 | NUR ---
SW following. Discussed with RN, pt accepted at [facility] for SNF. Insurance has approved transfer. Per Wendy at [facility], pt does not need a COVID test. RN notified. Dr. Lara notified of acceptance and insurance auth. Awaiting discharge orders. Per RN, pt will need stretcher transportation - SW to arrange when DC orders received. SUSU will continue to follow. Addendum: 06/12/20 at 1500 by GOSIA CRISTOBAL Discharge orders faxed to [facility]. Pt no longer needs stretcher transportation as prothesis arrived. Transportation arranged with [facility] transport for [phone]. RN, family and [facility] notified.
--- NOTE | 2020-06-12 10:33 | PDOC ---
PROGRESS NOTES Date of Service DATE: 06/12/20 TIME: 10:30 Subjective Subjective sleeping. cxr reviewed . blood sugars reviewed. sleeping .nurse notes she is talking and her mental status has improved,. bpi is high and will increase amlodipine. had an excellent diuresis and will decrease iv lasix Objective Objective Vital Signs Date Time Temp Pulse Resp B/P (MAP) Pulse Ox O2 Delivery O2 Flow Rate FiO2 06/12/20 09:07 69 170/74 06/12/20 07:55 Nasal Cannula 3.0 06/12/20 07:00 97.8 20 98 97.8 Intake and Output 06/12/20 07:00 Intake Total 518 ml Output Total 2750 ml Balance -2232 ml Intake Oral 518 ml Output Urine Total 2750 ml Physical Exam Abdomen: Soft, Other (obese) Heart: Regular rate, Normal S1, Normal S2 Extremities: Other (left BKA and 1 to 2 plus edema right thigh) General: Other (sleeping) HEENT: Atraumatic Lungs: Other (clear anteriorly) Neuro: Other (sleeping) Psych/Mental Status: Other (sleeping) Skin: Other (right leg redness better) Assessment Assessment Problems. Acute on chronic diastolic congestive heart failure. better 2. Metabolic encephalopathy multifactorial and also secondary to CO2 narcosis. ct head negative 3. Acute on chronic hypoxic and hypercarbic respiratory failure. 4. Obstructive sleep apnea, CPAP noncompliant. 5. Suspected obesity hypoventilation syndrome. 6. Anasarca due to congestive heart failure. better 7. Chronic kidney disease stage 3. 8. Diabetes mellitus type 2, on insulin with nephropathy and peripheral neuropathy. 9. Coronary artery disease. 10. Hypertension. 11. Hyperlipidemia. 12. Recent cellulitis of right leg. treated and resolved 13. Morbid obesity. 14. Recent large right groin hematoma following a cardiac catheterization 15. Mild peripheral arterial disease. 16. History of a left below-knee amputation. 17. Severe protein-calorie malnutrition. 18. Anemia of chronic disease. Medical Problems: (1) Acute exacerbation of CHF (congestive heart failure) Status: Acute (2) Altered mental status Status: Acute (3) Elevated troponin Status: Acute Plan Plan of Care decrease iv lasix PT and OT oxygen per NC d/c prn ativan increase amlodipine continue insulin lab tomorrow Comment Review of Relevant I have reviewed the following items helio (where applicable) has been applied. Labs Laboratory Tests Test 4/5/21 11:42 06/10/20 17:04 06/10/20 20:39 06/11/20 07:15 Glucose (Fingerstick) 226 mg/dL (70-99) 204 mg/dL (70-99) 257 mg/dL (70-99) White Blood Count 7.8 x10^3/uL (4.0-11.0) Red Blood Count 3.66 x10^6/uL (3.50-5.40) Hemoglobin 9.9 g/dL (12.0-15.5) Hematocrit 31.6 % (36.0-47.0) Mean Corpuscular Volume 86 fL (79-100) Mean Corpuscular Hemoglobin 27 pg (25-35) Mean Corpuscular Hemoglobin Concent 32 g/dL (31-37) Red Cell Distribution Width 19.1 % (11.5-14.5) Platelet Count 240 x10^3/uL (140-400) Neutrophils (%) (Auto) 79 % (31-73) Lymphocytes (%) (Auto) 11 % (24-48) Monocytes (%) (Auto) 9 % (0-9) Eosinophils (%) (Auto) 1 % (0-3) Basophils (%) (Auto) 1 % (0-3) Neutrophils # (Auto) 6.2 x10^3/uL (1.8-7.7) Lymphocytes # (Auto) 0.9 x10^3/uL (1.0-4.8) Monocytes # (Auto) 0.7 x10^3/uL (0.0-1.1) Eosinophils # (Auto) 0.1 x10^3/uL (0.0-0.7) Basophils # (Auto) 0.1 x10^3/uL (0.0-0.2) Sodium Level 142 mmol/L (136-145) Potassium Level 4.2 mmol/L (3.5-5.1) Chloride Level 101 mmol/L (98-107) Carbon Dioxide Level 41 mmol/L (21-32) Anion Gap 0 (6-14) Blood Urea Nitrogen 34 mg/dL (7-20) Creatinine 1.4 mg/dL (0.6-1.0) Estimated GFR (Cockcroft-Gault) 36.4 Glucose Level 143 mg/dL (70-99) Calcium Level 8.6 mg/dL (8.5-10.1) Magnesium Level 2.1 mg/dL (1.8-2.4) Test 06/11/20 07:52 06/11/20 12:25 06/11/20 17:15 06/11/20 21:06 Glucose (Fingerstick) 144 mg/dL (70-99) 173 mg/dL (70-99) 169 mg/dL (70-99) 213 mg/dL (70-99) Test 06/12/20 07:53 Glucose (Fingerstick) 97 mg/dL (70-99) Laboratory Tests Test 06/11/20 12:25 06/11/20 17:15 06/11/20 21:06 06/12/20 07:53 Glucose (Fingerstick) 173 mg/dL (70-99) 169 mg/dL (70-99) 213 mg/dL (70-99) 97 mg/dL (70-99) Microbiology 06/09/20 Blood Culture - Preliminary, Resulted NO GROWTH AFTER 3 DAYS Medications Current Medications Aspirin (Aspirin Rectal Supp) 300 mg 1X ONCE [place] Last administered on 06/09/20at 14:30; Start 06/09/20 at 12:30; Stop 06/09/20 at 12:35; Status DC Bumetanide (Bumex) 1 mg 1X ONCE IV Last administered on 06/09/20at 14:43; Start 06/09/20 at 12:30; Stop 06/09/20 at 12:35; Status DC Insulin Human Lispro (HumaLOG) 0-5 UNITS TIDWMEALS SQ ; Start 06/09/20 at 17:00; Stop 06/09/20 at 21:16; Status DC Dextrose (Dextrose 50%-Water Syringe) 12.5 gm PRN Q15MIN PRN IV SEE COMMENTS; Start 06/09/20 at 13:15 Famotidine (Pepcid Vial) 20 mg DAILY IVP ; Start 06/10/20 at 09:00; Stop 06/09/20 at 14:28; Status DC Furosemide (Lasix) 80 mg BID92 IVP ; Start 06/09/20 at 14:00; Stop 06/09/20 at 14:28; Status DC Linezolid/Dextrose 300 ml @ 300 mls/hr Q12HR IV ; Start 06/09/20 at 14:30; Stop 06/09/20 at 18:28; Status DC Meropenem 500 mg/ Sodium Chloride 50 ml @ 100 mls/hr Q8HRS IV ; Start 06/09/20 at 14:00; Stop 06/09/20 at 18:29; Status DC Insulin Human Lispro (HumaLOG) 0-6 UNITS BG 300-39... TIDWMEALS SQ Last administered on 06/11/20at 17:41; Start 06/09/20 at 17:00 Bisacodyl (Dulcolax Supp) 10 mg PRN DAILY PRN [place] CONSTIPATION; Start 06/09/20 at 14:00 Acetaminophen (Tylenol Supp) 650 mg PRN Q6HRS PRN KS MILD PAIN / TEMP > 100.3'F; Start 06/09/20 at 14:00 Furosemide (Lasix) 40 mg BID92 IVP Last administered on 06/12/20at 09:07; Start 06/09/20 at 15:00 Dextrose/Sodium Chloride 1,000 ml @ 30 mls/hr CONT PRN IV ; Start 06/09/20 at 14:30; Stop 06/10/20 at 01:57; Status DC Linezolid/Dextrose 300 ml @ 300 mls/hr Q12HR IV Last administered on 06/09/20at 20:37; Start 06/09/20 at 21:00; Stop 06/10/20 at 08:13; Status DC Meropenem 500 mg/ Sodium Chloride 50 ml @ 100 mls/hr Q8H IV Last administered on 06/10/20at 02:04; Start 06/09/20 at 18:30; Stop 06/10/20 at 08:13; Status DC Lorazepam (Ativan Inj) 0.5 mg PRN Q6HRS PRN IVP ANXIETY / AGITATION Last administered on 06/11/20at 21:40; Start 06/09/20 at 21:15 Dextrose/Sodium Chloride 1,000 ml @ 30 mls/hr CONT PRN PRN IV SEE IO; Start 06/10/20 at 02:00; Stop 06/10/20 at 11:57; Status DC Pharmacy Consult (C.diff Med Screen By Rx) 1 each 1X ONCE [facility] ; Start 06/10/20 at 02:45; Stop 06/10/20 at 02:46; Status Cancel Lactobacillus Rhamnosus (Culturelle) 1 cap BID PO Last administered on 06/12/20 09:06; Start 06/10/20 at 09:00 Hydralazine HCl (Apresoline Inj) 10 mg PRN Q4HRS PRN IVP ELEVATED BP, SEE COMMENTS Last administered on 06/10/20 08:20; Start 06/10/20 at 08:00 Acetaminophen (Tylenol) 650 mg PRN Q4HRS PO ; Start 06/10/20 at 09:45; Stop 06/11/20 at 21:15; Status DC Allopurinol (Zyloprim) 100 mg DAILY PO Last administered on 06/12/20 09:06; Start 06/10/20 at 11:00 Amlodipine Besylate (Norvasc) 2.5 mg DAILY PO Last administered on 06/12/20 09:06; Start 06/10/20 at 11:00 Aspirin (Aspirin Chewable) 81 mg HS PO Last administered on 06/11/20at 21:08; Start 06/10/20 at 21:00 Atorvastatin Calcium (Lipitor) 10 mg QHS PO ; Start 06/10/20 at 21:00; Stop 06/10/20 at 13:13; Status DC Ferrous Sulfate (Feosol) 325 mg QODAY PO Last administered on 06/10/20at 12:26; Start 06/10/20 at 12:00 Gabapentin (Neurontin) 300 mg BID PO Last administered on 06/11/20 08:53; Start 06/10/20 at 11:00; Stop 06/11/20 at 10:09; Status DC Insulin Glargine (Lantus Syringe) 14 unit QHS SQ Last administered on 06/11/20 21:11; Start 06/10/20 at 21:00 Levothyroxine Sodium (Synthroid) 150 mcg DAILY06 PO Last administered on 06/12/20 05:45; Start 06/11/20 at 06:00 Metoprolol Tartrate (Lopressor) 25 mg BID PO Last administered on 06/12/20 09:07; Start 06/10/20 at 11:00 Nystatin (Nystop) 1 renee BID TP Last administered on 06/12/20 09:08; Start 06/10/20 at 11:00 Paroxetine HCl (Paxil) 20 mg DAILY PO Last administered on 06/12/20at 09:06; Sta rt 06/10/20 at 09:00 Senna/Docusate Sodium (Senna Plus) 2 tab DAILY PO Last administered on 06/12/20 09:06; Start 06/10/20 at 12:00 Atorvastatin Calcium (Lipitor) 40 mg QHS PO Last administered on 06/11/20at 21:08; Start 06/10/20 at 21:00 Acetaminophen (Tylenol) 650 mg PRN Q4HRS PRN PO MILD PAIN / TEMP > 100.3'F Last administered on 06/11/20at 21:17; Start 06/11/20 at 21:30 Active Scripts Active Admelog (Insulin Lispro) 100 Unit/1 Ml Vial 6 Units SQ TIDAC hold if blood sugar less than 90 before a meal Lantus (Insulin Glargine,Hum.rec.anlog) 100 Unit/1 Ml Vial 14 Unit SQ QHS Klor-Con M20 (Potassium Chloride) 20 Meq Tab.er.prt 20 Meq PO DAILY Amlodipine Besylate 5 Mg Tablet 2.5 Mg PO DAILY Zyvox (Linezolid) 600 Mg Tablet 600 Mg PO BID 7 Days Cefdinir 300 Mg Capsule 300 Mg PO BID 7 Days Nyamyc (Nystatin) 15 Gm Powder 1 Renee TP BID Stool Soft-Stimulant Lax Tab (Sennosides/Docusate Sodium) 1 Each Tablet 2 Tab PO DAILY Furosemide 40 Mg Tablet 40 Mg PO DAILY Gabapentin 300 Mg Capsule 300 Mg PO BID Metoprolol Tartrate 25 Mg Tablet 25 Mg PO BID Feosol (Ferrous Sulfate) 325 Mg Tablet 325 Mg PO QODAY Synthroid (Levothyroxine Sodium) 150 Mcg Tablet 150 Mcg PO DAILY06 Allopurinol 100 Mg Tablet 100 Mg PO DAILY Paroxetine Hcl 20 Mg Tablet 20 Mg PO DAILY Atorvastatin Calcium 10 Mg Tablet 10 Mg PO QHS Reported Aspirin 81 Mg Tab.chew 81 Mg PO HS Tylenol (Acetaminophen) 325 Mg Tablet 650 Mg PO PRN Q4HRS Vitals/I & O Vital Sign - Last 24 Hours 06/11/20 06/11/20 06/11/20 06/11/20 11:00 11:01 15:00 19:00 Temp 97.7 97.7 97.9 98.1 97.7 97.7 97.9 98.1 Pulse 66 66 69 70 Resp 16 16 16 19 B/P (MAP) 146/77 (100) 146/77 (100) 146/71 (96) 121/57 (78) Pulse Ox 99 99 99 100 O2 Delivery Nasal Cannula Nasal Cannula Nasal Cannula Nasal Cannula O2 Flow Rate 3.0 3.0 3.0 3.0 06/11/20 06/11/20 06/11/20 06/12/20 19:45 21:08 22:37 00:15 Temp 98.0 98.0 Pulse 68 65 Resp 19 B/P (MAP) 121/57 147/77 (100) Pulse Ox 99 97 O2 Delivery Nasal Cannula BiPAP/CPAP BiPAP/CPAP O2 Flow Rate 3.0 06/12/20 06/12/20 06/12/20 06/12/20 02:45 02:57 07:00 07:55 Temp 98.3 97.8 98.3 97.8 Pulse 59 69 Resp 23 20 B/P (MAP) 131/69 (89) 170/74 (106) Pulse Ox 97 100 98 O2 Delivery BiPAP/CPAP BiPAP/CPAP Nasal Cannula Nasal Cannula O2 Flow Rate 3.0 3.0 06/12/20 06/12/20 09:06 09:07 Pulse 69 69 B/P (MAP) 170/74 170/74 Intake and Output 06/11/20 06/11/20 06/12/20 15:00 23:00 07:00 Intake Total 118 ml 100 ml 300 ml Output Total 1900 ml 850 ml Balance 118 ml -1800 ml -550 ml Justifications for Admission Other Justification TERE ALLISON MD Jun 12, 2020 10:33
[2020-06-12] MEDS ORDERED: amLODIPine BESYLATE 5 MG TABLET PO ONE (10:45)
--- NOTE | 2020-06-12 10:48 | PDOC ---
CARDIO Progress Notes Date and Time Date of Service 06/12/20 Time of Evaluation 1045 Subjective Subjective: No Chest Pain, No shortness of breath, No Palpitations Vitals Vitals Vital Signs Date Time Temp Pulse Resp B/P (MAP) Pulse Ox O2 Delivery O2 Flow Rate FiO2 06/12/20 09:07 69 170/74 06/12/20 07:55 Nasal Cannula 3.0 06/12/20 07:00 97.8 20 98 97.8 Weight Weight [ ] Input and Output Intake and Output Intake and Output 06/12/20 07:00 Intake Total 518 ml Output Total 2750 ml Balance -2232 ml Intake Oral 518 ml Output Urine Total 2750 ml Laboratory Labs Laboratory Tests Test 06/11/20 12:25 06/11/20 17:15 06/11/20 21:06 06/12/20 07:53 Glucose (Fingerstick) 173 mg/dL (70-99) 169 mg/dL (70-99) 213 mg/dL (70-99) 97 mg/dL (70-99) Microbiology Micro Microbiology 06/09/20 Blood Culture - Preliminary, Resulted NO GROWTH AFTER 3 DAYS Physical Exam HEENT: Neck Supple W Full Motion Chest: Symmetric LUNGS: Other (diminished bases) Heart: RRR Abdomen: Soft N/T, Other (obese) Extremities: Other (anasarca, left bka ) Neurology: alert, oriented, follow commands Assessment Assessment 1. Acute on chronic respiratory failure; multifactorial with a/c CHF, untreated LULI, pulmHTN, and probable obesity-hypoventilation syndrome 2. Acute on chronic diastolic CHF; recent echo with preserved LV systolic function. Better compensated with IV diuresis 3. Metabolic encephalopathy; CT head without acute findings 4. Mild troponin elevation; peak 0.9. Most probable type II, demand ischemia in setting of above. 5. CAD; recent cath showed 60% stenosis involving LAD with negative IFR and 100% [employer] involving moderate caliber obtuse marginal branch of left circumflex artery with left to left collaterals, being managed medically. 6. NILDA on CKD; Cr stable 7. Hypertension: labile. Norvasc increased 8. Hyperlipidemia: statin 9. Hypothyroidism: Continue levothyroxine 10. Arrhythmia; brief burst of NSVT noted on tele. Mg WNL. 11. Diabetes mellitus type 2: Treat per IM 12. PAD s/p left BKA 13. Right groin hematoma post Angio-Seal failure after cardiac cath last month. stable 14. Arrhythmia; 13 beat NSVT noted overnight on tele. asymptomatic. Mg 2.3. Continue BB Recommendations Lasix therapy Secondary prevention including ASA, statin, BB therapy Encouraged use of home CPAP and compliance with diuretic therapy Plans to return to [facility] and then go home with palliative care services. Supportive care Justicifation of Admission Dx: Justifications for Admission: Justification of Admission Dx: N/A FARHANA HOFFMAN APRN Jun 12, 2020 10:48
[2020-06-12 12:00] VITALS: BP 160/73
[2020-06-12 12:26] LABS: BLOOD UREA NITROGEN 35 mg/dL (7-20); CARBON DIOXIDE 43 mmol/L (21-32); CHLORIDE 101 mmol/L (98-107); CREATININE 1.5 mg/dL (0.6-1.0); GFR 33.6; GLUCOSE 128 mg/dL (70-99); MAGNESIUM 2.3 mg/dL (1.8-2.4); POTASSIUM 3.9 mmol/L (3.5-5.1); SODIUM 142 mmol/L (136-145)
[2020-06-12] MEDS ORDERED: ATOR40TA59 PO (14:50)
[2020-06-12] MEDS ORDERED: AMLO-186 PO (14:50)
[2020-06-12] MEDS ORDERED: FURO40TA4 PO (14:50)
--- NOTE | 2020-06-12 14:53 | SNU/HH DC ---
DISCHARGE ORDERS DISCHARGE INFORMATION: DISCHARGE DATE: Jun 12, 2020 FINAL DIAGNOSIS Problems Medical Problems: (1) Acute exacerbation of CHF (congestive heart failure) Status: Acute (2) Altered mental status Status: Acute (3) Elevated troponin Status: Acute CONDITION ON DISCHARGE: Stable CODE STATUS: Code Status: Full FCI: SNF STAY <30 DAYS: Yes POST DISCHARGE ORDERS: ACTIVITY ORDERS: No restrictions WEIGHT BEARING STATUS: As tolerated DIET AFTER DISCHARGE: ADA WOUND/INCISION CARE: Change dressing, May get incision wet OTHER ORDERS: elevate right leg and apply tubigrips. c CHECKS AFTER DISCHARGE: CHECKS AFTER DISCHARGE: Check blood press - daily, Check blood sugar, ac/hs FOLLOW-UP: PHYSICIAN FOLLOW-UP: dr. allison after dismissal from SNF LAB ORDERS FOR FOLLOW-UP: cbc and bmp and magnesium every wednesday Additional Instructions: bmp every . wear tubigrips and elevate legs. avoid sedating medication . no hs sedating meds or benadryl. TREATMENT/EQUIPMENT ORDERS: ADAPTIVE EQUIPMENT NEEDED: None Physical Therapy For: Evalulation/Treatment Occupational Therapy For: Evaluation/Treatment DISCHARGE MEDICATIONS: Home Meds Active Scripts Furosemide (FUROSEMIDE) 40 Mg Tablet, 40 MG PO BID for chf, #60 TAB Prov:TERE ALLISON MD 06/12/20 Amlodipine Besylate (AMLODIPINE BESYLATE) 5 Mg Tablet, 5 MG PO DAILY for HTN, #30 TAB Prov:TERE ALLISON MD 06/12/20 Atorvastatin Calcium (ATORVASTATIN CALCIUM) 40 Mg Tablet, 40 MG PO QHS for hyperlipidemia, #30 TAB Prov:TERE ALLISON MD 06/12/20 Insulin Lispro (Admelog) 100 Unit/1 Ml Vial, 6 UNITS SQ TIDAC for diabetes, #10 EACH hold if blood sugar less than 90 before a meal Prov:TERE ALLISON MD 06/04/20 Insulin Glargine,Hum.rec.anlog (LANTUS) 100 Unit/1 Ml Vial, 14 UNIT SQ QHS for DM, #10 EACH Prov:TERE ALLISON MD 06/04/20 Potassium Chloride (KLOR-CON M20) 20 Meq Tab.er.prt, 20 MEQ PO DAILY for kcl supplement, #30 TAB.SR Prov:TERE ALLISON MD 06/04/20 Nystatin (NYAMYC) 15 Gm Powder, 1 GEOVANNA TP BID for yeast rash, #1 MISC Prov:TERE ALLISON MD 05/12/20 Sennosides/Docusate Sodium (STOOL SOFT-STIMULANT LAX TAB) 1 Each Tablet, 2 TAB PO DAILY for constipation, #60 TAB Prov:TERE ALLISON MD 05/12/20 Metoprolol Tartrate (METOPROLOL TARTRATE) 25 Mg Tablet, 25 MG PO BID for HTN, #60 TAB Prov:TERE ALLISON MD 05/12/20 Ferrous Sulfate (FEOSOL) 325 Mg Tablet, 325 MG PO QODAY for anemia, #15 TAB Prov:TERE ALLISON MD 05/12/20 Levothyroxine Sodium (SYNTHROID) 150 Mcg Tablet, 150 MCG PO DAILY06 for hypothyroidism, #30 TAB Prov:TERE ALLISON MD 05/21/19 Allopurinol (ALLOPURINOL) 100 Mg Tablet, 100 MG PO DAILY for chronic gout, #30 TAB Prov:TERE ALLISON MD 05/21/19 Paroxetine Hcl (PAROXETINE HCL) 20 Mg Tablet, 20 MG PO DAILY for depression, #30 TAB Prov:TERE ALLISON MD 05/21/19 Reported Medications Aspirin (ASPIRIN) 81 Mg Tab.chew, 81 MG PO HS for heart healthy, TAB.CHEW 05/03/20 Acetaminophen (TYLENOL) 325 Mg Tablet, 650 MG PO PRN Q4HRS 05/19/13 Discontinued Scripts Amlodipine Besylate (AMLODIPINE BESYLATE) 5 Mg Tablet, 2.5 MG PO DAILY for HTN, #30 TAB Prov:TERE ALLISON MD 06/04/20 Linezolid (ZYVOX) 600 Mg Tablet, 600 MG PO BID for cellulitis for 7 Days, #14 TAB Prov:TERE ALLISON MD 06/04/20 Cefdinir (CEFDINIR) 300 Mg Capsule, 300 MG PO BID for cellulitis for 7 Days, #14 CAP Prov:TERE ALLISON MD 06/04/20 Furosemide (FUROSEMIDE) 40 Mg Tablet, 40 MG PO DAILY for chf, #30 TAB Prov:TERE ALLISON MD 05/12/20 Gabapentin (GABAPENTIN) 300 Mg Capsule, 300 MG PO BID for peripheral neuropathy, #60 CAP Prov:TREE ALLISON MD 05/12/20 Atorvastatin Calcium (ATORVASTATIN CALCIUM) 10 Mg Tablet, 10 MG PO QHS for hyperlipidemia, #30 TAB Prov:TERE ALLISON MD 05/21/19 TERE ALLISON MD Jun 12, 2020 14:53
--- NOTE | 2020-06-12 15:01 | PDOC ---
Provider Note Date of Service: DATE: 06/12/20 TIME: 15:01 Provider Note discharge summary dictated # [id number] Justifications for Admission Other Justification TERE ALLISON MD Jun 12, 2020 15:01
--- NOTE | 2020-06-12 15:34 | NUR ---
Discharge Note: [facility] Discharge instructions and discharge home medications reviewed with Other facility and a copy given. All questions have been answered and understanding verbalized. Patient discharged to [facility] with [facility] transportation. Called [facility] and gave report to Myriam at [phone]. Advised per Dr. Lara, no sedative medication should be given and labs should be taken every Wednesday. Advised to call if any other questions were needed.
[2020-06-12] MEDS ORDERED: FUROSEMIDE 40 MG TABLET. PO SCH (16:00)
[2020-06-12] MEDS ORDERED: INSULIN LISPRO 300 UNITS/3 ML VIAL. SQ SCH (16:30)
--- NOTE | 2020-06-13 01:02 | DS ---
DATE OF DISCHARGE: 06/12/2020 CONSULTANTS: Include Dr. Lopez, Dr. Shankar and Dr. Powers. FINAL DIAGNOSES: 1. Acute on chronic diastolic congestive heart failure. 2. Metabolic encephalopathy, multifactorial, but certainly secondary to CO2 narcosis. 3. Acute on chronic hypoxic and hypercarbic respiratory failure. 4. Obstructive sleep apnea. 5. Suspected obesity hypoventilation syndrome. 6. Anasarca due to congestive heart failure. 7. Chronic kidney disease, stage 3. 8. Diabetes mellitus type 2, on insulin with nephropathy and peripheral neuropathy. 9. Coronary artery disease. 10. Hypertension. 11. Hyperlipidemia. 12. Recent cellulitis, right leg, resolved. 13. Morbid obesity. 14. Recent large right groin hematoma following a cardiac catheterization. 15. Mild peripheral arterial disease. 16. History of a left below-knee amputation. 17. Severe protein-calorie malnutrition. 18. Anemia of chronic disease. 19. Critical illness myopathy. HOSPITAL COURSE: The patient is a 79-year-old morbidly obese white female with history of diabetes mellitus type 2 with nephropathy and peripheral neuropathy, treated with insulin, who has chronic kidney disease stage 3 with a baseline serum creatinine of 1.5-1.7 who has hypertension, hyperlipidemia, obstructive sleep apnea, mild peripheral arterial disease, coronary artery disease, hypothyroidism, chronic diastolic congestive heart failure, recently dismissed from [facility] on 06/04/2020 with cellulitis to right leg and a large right groin hematoma from a previous cardiac catheterization done about several weeks to a month earlier. She has chronic venous insufficiency of the lower extremities with a previous left below-knee amputation, who was dismissed to the assisted facility where she was cared for by another physician. She was sent back to the [facility] Emergency Room with altered mental status and increasing peripheral edema. She was taking furosemide 40 mg p.o. every day. She was unresponsive. The patient's arterial blood gas showed a pH of 7.31, pCO2 of 71 and pO2 of 74 on 3 L per nasal cannula. Her white count was 8.5, BUN 40 and creatinine 1.7. Troponin was increased to 0.9, went on and decreased to 0.5 due to demand type elevation from her congestive heart failure. Chest x-ray was consistent with congestive heart failure. Venous Doppler of the right lower extremity was negative for deep vein thrombosis. CAT scan of the head showed no acute abnormality, noted to have a metabolic encephalopathy, aggravated by CO2 narcosis. She had acute on chronic diastolic congestive heart failure and acute on chronic hypoxic and hypercarbic respiratory failure. She was treated with BiPAP and pCO2 improved and eventually switched to oxygen per nasal cannula. She was admitted to telemetry unit, seen by Dr. Lopez and Dr. Shankar for Pulmonary and Dr. Powers for Cardiology. She was treated with IV Lasix with good diuresis and eventually switched to oral Lasix 40 mg b.i.d., which she will start tomorrow. Her blood pressure was high. Amlodipine was increased to 2.5 to 5 mg daily. Insulin was resumed at her previous dose. Gabapentin was discontinued due to the altered mental status and also because it can cause peripheral edema. It is anticipated she will be dismissed today to a assisted facility where she will have physical and occupational therapy. She will have a CBC and BMP, magnesium every Wednesday and a BMP every . She will be dismissed on amlodipine 5 mg every day, atorvastatin 40 mg at bedtime, furosemide 40 mg p.o. b.i.d., Tylenol 650 mg every 4 hours p.r.n., allopurinol 100 mg every day, aspirin 81 mg every day, ferrous sulfate 325 mg every other day, Lantus insulin 14 units at bedtime, Humalog insulin 6 units before meals t.i.d. to be held if blood sugars less 90 before the meal, levothyroxine 150 mcg every day, metoprolol tartrate 25 mg b.i.d., Nystatin applied topically b.i.d., Paxil 20 mg every day, potassium chloride 20 mEq every day and Senokot-S 2 tablets daily. She will be dismissed later today to the assisted facility. She will receive physical and occupational therapy. Her blood sugars will be checked 4 times a day. Cifuentes will be discontinued and she will continue with her oxygen about 3 L of oxygen per nasal cannula. Oxygen saturation is 98% today. TERE ALLISON MD DR: LAURA/los JOB#: [id number] / [id number]
[2020-06-13] MEDS ORDERED: FUROSEMIDE 40 MG/4 ML VIAL. IVP SCH (09:00)
[2020-06-13] MEDS ORDERED: amLODIPine BESYLATE 5 MG TABLET PO SCH (09:00)
== END 2020-06-12 15:24 | DRG 291 ==
LOC: ER 09:34 → 2 SOUTH 12:41
PROVIDERS: ADMIT Internal Medicine; ATTEND Internal Medicine
PROC: 5A09357 Assistance with Respiratory Ventilation, Less than 24 Consecutive Hours, Continuous Positive Airway Pressure (ICD-10-PCS; principal; 2020-06-09)
PROC: 5A09357 Assistance with Respiratory Ventilation, Less than 24 Consecutive Hours, Continuous Positive Airway Pressure (ICD-10-PCS; 2020-06-10)
PROC: 5A09357 Assistance with Respiratory Ventilation, Less than 24 Consecutive Hours, Continuous Positive Airway Pressure (ICD-10-PCS; 2020-06-11)
PROC: 5A09357 Assistance with Respiratory Ventilation, Less than 24 Consecutive Hours, Continuous Positive Airway Pressure (ICD-10-PCS; 2020-06-12)
DX: I13.0 Hypertensive heart and chronic kidney disease with heart failure and stage 1 through stage 4 chronic kidney disease, or unspecified chronic kidney disease (principal); I50.33 Acute on chronic diastolic (congestive) heart failure; J96.21 Acute and chronic respiratory failure with hypoxia; E43 Unspecified severe protein-calorie malnutrition; G93.41 Metabolic encephalopathy; J96.22 Acute and chronic respiratory failure with hypercapnia; G72.81 Critical illness myopathy; I24.8 Other forms of acute ischemic heart disease; I47.2 Ventricular tachycardia; E66.2 Morbid (severe) obesity with alveolar hypoventilation; L03.115 Cellulitis of right lower limb; N17.9 Acute kidney failure, unspecified; Z68.42 Body mass index [BMI] 45.0-49.9, adult; E03.9 Hypothyroidism, unspecified; I25.10 Atherosclerotic heart disease of native coronary artery without angina pectoris; Z20.822 Contact with and (suspected) exposure to COVID-19; F41.9 Anxiety disorder, unspecified; K59.00 Constipation, unspecified; M19.90 Unspecified osteoarthritis, unspecified site; R53.81 Other malaise; R91.8 Other nonspecific abnormal finding of lung field; D63.8 Anemia in other chronic diseases classified elsewhere; E11.22 Type 2 diabetes mellitus with diabetic chronic kidney disease; N18.30 Chronic kidney disease, stage 3 unspecified; E11.42 Type 2 diabetes mellitus with diabetic polyneuropathy; E11.51 Type 2 diabetes mellitus with diabetic peripheral angiopathy without gangrene; E78.5 Hyperlipidemia, unspecified; I50.82 Biventricular heart failure; I87.2 Venous insufficiency (chronic) (peripheral); Z91.041 Radiographic dye allergy status; Z88.5 Allergy status to narcotic agent; Z88.8 Allergy status to other drugs, medicaments and biological substances; Z91.048 Other nonmedicinal substance allergy status; Z90.710 Acquired absence of both cervix and uterus; Z89.512 Acquired absence of left leg below knee; Z87.891 Personal history of nicotine dependence; Z79.4 Long term (current) use of insulin; Z79.82 Long term (current) use of aspirin; Z79.899 Other long term (current) drug therapy; Z87.440 Personal history of urinary (tract) infections; Z91.19 Patient's noncompliance with other medical treatment and regimen; Z90.49 Acquired absence of other specified parts of digestive tract; Z83.3 Family history of diabetes mellitus; Z82.49 Family history of ischemic heart disease and other diseases of the circulatory system
CPT/HCPCS: 36415; 36600; 70450; 71045; 80048; 80053; 81001; 82140; 82553; 82805; 82962; 83605; 83735; 83880; 84484; 85025; 87040; 93005; 93971; 94660; 94760; 99291; J0360; J1815; J1940; J2020; J2060; J2185; J3490; 97530-GO; 97530-GP; 97535-GO; G0378

== ENCOUNTER 2020-06-29 10:50 | Inpatient (IN) | payer MEDICARE ==
[~2020-06-29] VITALS: Ht 167.6 cm; Wt 119.1 kg
[~2020-06-29 10:50] MED LIST changes: +ATOR40TA59 PO; +SENN-189 PO; -SENN1TAB50 PO
[2020-06-29 11:58] LABS: BASO # 0.1 x10^3/uL (0.0-0.2); BASO % 1 % (0-3); EOS # 0.3 x10^3/uL (0.0-0.7); EOS % 3 % (0-3); HEMATOCRIT 30.8 % (36.0-47.0); HEMOGLOBIN 9.7 g/dL (12.0-15.5); LYMPH # 0.9 x10^3/uL (1.0-4.8); LYMPH % 11 % (24-48); MEAN CORPUSCULAR HEMOGLOBIN 27 pg (25-35); MEAN CORPUSCULAR HGB CONC 31 g/dL (31-37); MEAN CORPUSCULAR VOLUME 84 fL (79-100); MONO # 0.7 x10^3/uL (0.0-1.1); MONO % 9 % (0-9); NEUT % 76 % (31-73); PLATELET COUNT 263 x10^3/uL (140-400); RED BLOOD COUNT 3.65 x10^6/uL (3.50-5.40); WHITE BLOOD COUNT 7.9 x10^3/uL (4.0-11.0)
--- NOTE | 2020-06-29 12:04 | PHYS DOC ---
Past Medical History Past Medical History: CHF, Diabetes-Type II, Hypertension, Hypothyroid, Other Additional Past Medical Histor: cpap at night for sleep apnea (PAUL,POLLY Abad SPLICER APPRENTICE) Past Surgical History: Appendectomy, Hysterectomy, Tonsillectomy, Other Additional Past Surgical Histo: patient reports bilateral toe amputations. LEFT BKA (PAUL,POLLY M SPLICER APPRENTICE) Smoking Status: Never Smoker Alcohol Use: None Drug Use: None (PAUL,POLLY Abad SPLICER APPRENTICE) General Adult EDM: Chief Complaint: LOWER EXTREMITY SWELLING HPI: HPI: Patient is a 79 year old female who presents with discharge from [facility] yesterday and that the home health nurse came over today and was looking at her legs and stated that she should come and have her right lower leg looked at. Patient has neuropathy in her leg and so she has no pain. She states she has had continuous drainage, open areas that are draining clear fluid, redness to her leg. She states that she finished up her antibiotics a week or 2 ago. She states that the leg has looked worse in the past but was told she should have it looked at. Patient has a history of CHF, hypertension, hypothyroidism, diabetes, CPAP at night, appendectomy, left BKA, bilateral toe amputations, hysterectomy, tonsillectomy. Patient states that she is also been getting very short of breath especially with exertion and has been having to wear oxygen as n eeded. Patient got from the wheelchair to the bed and became very short of breath and was put on oxygen at 2 L because she was satting only 80%. On 2 L she was 96%. (PAUL,POLLY M SPLICER APPRENTICE) Review of Systems: Review of Systems: Constitutional: Denies fever or chills. [] Eyes: Denies change in visual acuity. [] HENT: Denies nasal congestion or sore throat. [] Respiratory: Denies cough or +shortness of breath. [] Cardiovascular: Denies chest pain. + edema. [] GI: Denies abdominal pain, nausea, vomiting, bloody stools or diarrhea. [] : Denies dysuria. [] Musculoskeletal: Denies back pain or joint pain. [] Integument: Denies rash.+ Right lower leg redness[] Neurologic: Denies headache, focal weakness or sensory changes. [] Endocrine: Denies polyuria or polydipsia. [] Lymphatic: Denies swollen glands. [] Psychiatric: Denies depression or anxiety. [] (POLLY MILLER APRN) Heart Score: C/O Chest Pain: No Risk Factors: Risk Factors: DM, Current or recent (<one month) smoker, HTN, HLP, family history of CAD, obesity. Risk Scores: Score 0 - 3: 2.5% MACE over next 6 weeks - Discharge Home Score 4 - 6: 20.3% MACE over next 6 weeks - Admit for Clinical Observation Score 7 - 10: 72.7% MACE over next 6 weeks - Early Invasive Strategies (POLLY MILLER APRN) Allergies: Allergies: Allergies Coded Allergies Type Severity Reaction Last Updated Verified lisinopril Allergy Severe THROAT, TONGUE SWELLING 11/16/13 Yes adhesive Allergy Intermediate TAPE-RED SKIN 11/16/13 Yes sertraline HCl Allergy Intermediate 11/16/13 Yes I S O L A T I O N *CONTACT* Allergy Unknown 05/13/20 Yes morphine Adverse Reaction Intermediate Nausea 11/16/13 Yes (POLLY MILLER APRN) Physical Exam: PE: Constitutional: Well developed, well nourished, no acute distress, non-toxic appearance. [] HENT: Normocephalic, atraumatic, bilateral external ears normal, oropharynx moist, no oral exudates, nose normal. [] Eyes: PERRLA, EOMI, conjunctiva normal, no discharge. [] Neck: Normal range of motion, no tenderness, supple, no stridor. [] Cardiovascular:Heart rate regular rhythm, no murmur [] Lungs & Thorax: Bilateral breath sounds clear to auscultation [] Abdomen: Bowel sounds normal, soft, no tenderness, no masses, no pulsatile masses. [] Skin: Warm, dry, right lower leg erythema, no rash. [] Back: No tenderness, no CVA tenderness. [] Extremities: No tenderness, no cyanosis, no clubbing, ROM intact, right lower leg edema that is pitting and 3+ that goes all the way up into her mid thigh. [] Neurologic: Alert and oriented X 3, normal motor function, neuropathy in right leg, no focal deficits noted. [] Psychologic: Affect normal, judgement normal, mood normal. [] (POLLY MILLER APRN) EKG: EK and read by Dr. Singleton is sinus rhythm with 2 T wave inversions in V1. When compared to EKG from June 2019 there are changes. (POLLY MILLER APRN) Radiology/Procedures: Radiology/Procedures: [] Impression: [place] [address] IMAGING REPORT Signed PATIENT: DIMAS REDMOND ACCOUNT: [id number] : 1940 LOCATION: ER AGE: 79 SEX: F EXAM STATUS: REG ER ORD. PHYSICIAN: POLLY MILLER APRN REASON: soa PROCEDURE: PORTABLE CHEST 1V EXAM: CHEST ONE VIEW. HISTORY: Shortness of breath. COMPARISON: 06/12/2020. FINDINGS: A frontal view of the chest is obtained. There are mild bibasilar interstitial infiltrates. These are less prominent than on the prior study. There is no pneumothorax or pleural effusion. The heart is not enlarged. IMPRESSION: 1. Mild bibasilar infiltrates. Correlate for mild pulmonary edema or atypical pneumonia. Electronically signed by: Bandar Kong MD (06/29/2020 12:16 PM) [facility] DICTATED and SIGNED BY: FELISHA KONG MD DATE: 06/29/20 [id number] [address] [id number] IMAGING REPORT Signed PATIENT: DIMAS REDMOND ACCOUNT: [id number] : 1940 LOCATION: ER AGE: 79 SEX: F EXAM STATUS: REG ER ORD. PHYSICIAN: POLLY MILLER APRN REASON: cellulitis, diabetes, wounds PROCEDURE: FOOT RIGHT 3V XR FOOT_RIGHT 3 VIEWS, XR RT TIBIA+FIBULA Clinical Indication: Reason: cellulitis, diabetes, wounds / Spl. Instructions: / History: Comparison: None. Findings: There is no acute fracture of the tibia or fibula. There are moderate arterial calcifications. Moderate narrowing of the medial and patellofemoral compartments of the knee. Cannot exclude knee joint effusion. There is mid to distal diaphysis pretibial soft tissue swelling. The second and third toes are amputated. There are hammertoe deformities of the remaining toes. No acute fracture is identified. No bone erosion is identified. Diffuse demineralization. IMPRESSION: No radiographic evidence of osteomyelitis. Electronically signed by: Aron Collado MD (06/29/2020 1:54 PM) [id number] DICTATED and SIGNED BY: ARON COLLADO MD DATE: 06/29/20 [id number] (POLLY MILLER APRN) Course & Med Decision Making: Course & Med Decision Making Pertinent Labs and Imaging studies reviewed. (See chart for details) See HPI. Alert and oriented x4. Lungs are clear in upper lobes but diminished in lower lobes. Right leg edema goes all the way up into mid thigh. 2-3+ pitting. Redness from below the knee all the way down into the foot. Pedal pulses full present. 2 small open sores on legs. Moderate amount of clear yellow fluid draining from the leg. Sock and shoe are wet. EKG changes from prior EKG in June 2019. I have ordered about the normal saline to go in slowly, not wanting to fluid over load the patient, and Vancomycin per pharmacy. I have spoken to Dr. Lara and the patient is admitted to the hospital. [] (POLLY MILLER APRN) Dragon Disclaimer: Dragon Disclaimer: This electronic medical record was generated, in whole or in part, using a voice recognition dictation system. (POLLY MILLER APRN) Departure Departure Impression: Primary Impression: CHF exacerbation Qualified Codes: I50.9 - Heart failure, unspecified Additional Impression: Cellulitis Qualified Codes: L03.115 - Cellulitis of right lower limb Disposition: ADMITTED INPATIENT Admitting Physician: Ramirez Lara (POLLY MILLER APRN) Condition: STABLE Referrals: RAMIREZ LARA MD (PCP) Attending Signature Attending Signature I have participated in the care of this patient and I have reviewed and agree with all pertinent clinical information above including history, exam, and recommendations. (MEL SINGLETON MD) POLLY MILLER APRN Jun 29, 2020 12:04 MEL SINGLETON MD Jul 01, 2020 06:41
[2020-06-29 12:10] LABS: CALCIUM 8.7 mg/dL (8.5-10.1); CREATININE 1.4 mg/dL (0.6-1.0); GFR 36.4; POTASSIUM 4.1 mmol/L (3.5-5.1)
[2020-06-29 12:16] LABS: ALBUMIN 3.1 g/dL (3.4-5.0); ALBUMIN/GLOBULIN RATIO 0.7 (1.0-1.7); C-REACTIVE PROTEIN 19.8 mg/L (0-3.3); TOTAL BILIRUBIN 0.8 mg/dL (0.2-1.0); TOTAL PROTEIN 7.6 g/dL (6.4-8.2)
--- NOTE | 2020-06-29 12:18 | RAD ---
EXAM: CHEST ONE VIEW. HISTORY: Shortness of breath. COMPARISON: 06/12/2020. FINDINGS: A frontal view of the chest is obtained. There are mild bibasilar interstitial infiltrates. These are less prominent than on the prior study. There is no pneumothorax or pleural effusion. The heart is not enlarged. IMPRESSION: 1. Mild bibasilar infiltrates. Correlate for mild pulmonary edema or atypical pneumonia. Electronically signed by: Bandar Kong MD (06/29/2020 12:16 PM) [facility]
[2020-06-29] MEDS ORDERED: VANCOMYCIN PER PHARMACY MC PRN (12:45)
[2020-06-29] MEDS ORDERED: VANCOMYCIN 2 GM in IV NORMAL SALINE 500ML BAG 500 ML IV ONE (13:00)
--- NOTE | 2020-06-29 13:20 | EKG ---
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
[2020-06-29 13:26] LABS: BASE EXCESS COOX 6 mmol/L (-3-3); HCO3 COOX 31 mmol/L (21-28); METHEMOGLOBIN 0.4 % (0.0-1.9); OXYHEMOGLOBIN 95.9 %; PCO2 COOX 53 mmHg (35-46); PO2 COOX 101 mmHg (65-108); SAT O2 COOX 97 % (92-99)
[2020-06-29] MEDS ORDERED: IV NORMAL SALINE 1000ML BAG 1,000 ML IV ONE (13:30)
--- NOTE | 2020-06-29 13:57 | RAD ---
XR FOOT_RIGHT 3 VIEWS, XR RT TIBIA+FIBULA Clinical Indication: Reason: cellulitis, diabetes, wounds / Spl. Instructions: / History: Comparison: None. Findings: There is no acute fracture of the tibia or fibula. There are moderate arterial calcifications. Modera te narrowing of the medial and patellofemoral compartments of the knee. Cannot exclude knee joint eff usion. There is mid to distal diaphysis pretibial soft tissue swelling. The second and third toes are amputated. There are hammertoe deformities of the remaining toes. No ac [place] fracture is identified. No bone erosion is identified. Diffuse demineralization. IMPRESSION: No radiographic evidence of osteomyelitis. Electronically signed by: Aron Collado MD (06/29/2020 1:54 PM) [id number]
--- NOTE | 2020-06-29 13:57 | RAD ---
XR FOOT_RIGHT 3 VIEWS, XR RT TIBIA+FIBULA Clinical Indication: Reason: cellulitis, diabetes, wounds / Spl. Instructions: / History: Comparison: None. Findings: There is no acute fracture of the tibia or fibula. There are moderate arterial calcifications. Modera te narrowing of the medial and patellofemoral compartments of the knee. Cannot exclude knee joint eff usion. There is mid to distal diaphysis pretibial soft tissue swelling. The second and third toes are amputated. There are hammertoe deformities of the remaining toes. No ac [place] fracture is identified. No bone erosion is identified. Diffuse demineralization. IMPRESSION: No radiographic evidence of osteomyelitis. Electronically signed by: Aron Collado MD (06/29/2020 1:54 PM) [id number]
[2020-06-29] MEDS ORDERED: ACETAMINOPHEN 325 MG TABLET. PO PRN (15:30)
[2020-06-29 15:35] VITALS: BP 140/60
--- NOTE | 2020-06-29 15:52 | PDOC ---
Provider Note Date of Service: DATE: 06/29/20 TIME: 15:51 Provider Note history and physical dictated # [id number] Justifications for Admission Other Justification TERE ALLISON MD Jun 29, 2020 15:52
--- NOTE | 2020-06-29 16:27 | PDOC ---
CARDIOLOGY PROGRESS NOTE SUBJECTIVE: Mae is a pleasant 79-year-old woman who is well-known to our service with extensive past medical history as noted below who was recently discharged from [facility] after being transferred there for continued convalescence in the setting of a large right groin hematoma after recent cardiac catheterization which was performed due to persistent diastolic heart failure and obesity hypoventilation syndrome with underlying pulmonary hypertension. She unfortunately has not progressed well at her rehabilitation facility and continues to have right lower extremity edema. She has been admitted to the hospital in the setting of lower extremity edema and possible cellulitis. OBJECTIVE: Vital Signs/I&O: Vital Signs Date Time Temp Pulse Resp B/P (MAP) Pulse Ox O2 Delivery O2 Flow Rate FiO2 06/29/20 13:48 72 150/72 (98) 98 Nasal Cannula 2.0 06/29/20 11:10 98.2 24 98.2 Objective: In general she is alert and oriented no acute distress Large right groin hematoma with 2+ pitting edema up to the mid thigh. Normal heart tones Obese large protuberant abdomen Clear lung rick anteriorly CURRENT MEDICATIONS: Amlodipine, metoprolol, aspirin, atorvastatin, furosemide DIAGNOSTIC TESTING: Labs reviewed. Anemia noted. CKD noted. BNP elevated. ASSESSMENT: 1. Acute on chronic respiratory failure; multifactorial with a/c CHF, untreated LULI, pulmHTN, and probable obesity-hypoventilation syndrome 2. Acute on chronic diastolic CHF; recent echo with preserved LV systolic function. In 2020 3. CAD; recent cath in May 2020 showed 60% stenosis involving LAD with negative IFR and 100% [employer] involving moderate caliber obtuse marginal branch of left circumflex artery with left to left collaterals, being managed medically. 4. CKD 5. HTN 6. Dyslipidemia 7. DM2 8. PAD s/p L BKA 9. Recent right groin hematoma. 10. NSVT in the past. PLAN: 1. Agree with initiation of IV diuretics. I suspect that a large part of her right leg edema is related to nonocclusive compression from her hematoma. This right leg edema is not new for her and this did not significantly improve prior to her discharge. For now continue elevation of her leg and compression therapy and diuresis as tolerated. No indication for IV fluids at this time. Supportive care for now. We will follow along closely. Thank you for this consultation. Justicifation of Admission Dx: Justifications for Admission: Justification of Admission Dx: N/A FRANDY CONNOR MD Jun 29, 2020 16:27
[2020-06-29] MEDS: FUROSEMIDE 40 MG/4 ML VIAL. IVP SCH (16:35)
[2020-06-29] MEDS: MEROPENEM 500 MG in IV NORMAL SALINE 50ML 50 ML IV SCH ×2 (16:42→21:51)
[2020-06-29] MEDS: INSULIN LISPRO 300 UNITS/3 ML VIAL. SQ SCH (17:04)
--- NOTE | 2020-06-29 17:26 | RAD ---
EXAM: Right lower extremity venous Doppler. HISTORY: Right lower extremity pain/swelling. COMPARISON: None. FINDINGS: Grayscale and Doppler analysis of the right lower extremity deep venous system was performe d with graded compression and augmentation. The common femoral, greater saphenous, superficial femora l, popliteal and calf veins were assessed. There is no evidence of deep venous thrombosis. IMPRESSION: 1. No evidence of deep venous thrombosis. Electronically signed by: Bandar Kong MD (06/29/2020 5:24 PM) [facility]
[2020-06-29 19:00] VITALS: BP 135/61
[2020-06-29 19:48] VITALS: BP 100/67
[2020-06-29] MEDS ORDERED: INSULIN GLARGINE SYRINGE. SQ SCH (21:00)
[2020-06-29] MEDS: ATORVASTATIN CALCIUM 40 MG TABLET. PO SCH (21:38)
[2020-06-29] MEDS: SENNOSIDES/DOCUSATE 8.6/50MG TABLET. PO SCH (21:38)
[2020-06-29] MEDS: HEPARIN for SUB-Q USE 5,000 UNIT/ML VIAL. SQ SCH (21:41)
[2020-06-29 23:30] VITALS: BP 136/62
[2020-06-30] MEDS: PARoxetine 10 MG TABLET PO SCH ×2 (00:16→08:24)
[2020-06-30] MEDS ORDERED: LORazepam 0.5 MG TABLET PO ONE (00:30)
--- NOTE | 2020-06-30 00:38 | HP ---
ADMIT DATE: 06/29/2020 LOCATION: She is in room 204. 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, treated with insulin, who has chronic kidney disease stage 3 with serum creatinine baseline around 1.4-1.7, who has hypertension, hyperlipidemia, obstructive sleep apnea, treated with CPAP, mild peripheral arterial disease, nonobstructive coronary artery disease, hypothyroidism, chronic diastolic congestive heart failure, and chronic hypoxic and hypercapnic respiratory failure, who was actually dismissed from the [facility] facility for 1 day and was seen by her home health nurse today who noted increasing redness and swelling and weeping from the right lower extremity and was told to go to the [facility] Emergency Room, which she did today on 06/29/2020. The right leg is red all the way from the foot all the way to the proximal deltoid to the distal thigh with some weeping and an open area in the right anterior pretibial area, consistent with cellulitis. She does have chronic venous insufficiency, upper leg and does have a history of a previous left below-knee amputation and wears a left leg prosthesis and also has amputation of two toes in the right foot. She actually was hospitalized with cellulitis in the right leg in earlier this month and she was treated with IV antibiotics and completed a course of antibiotics. She has noted increased weeping in her right lower extremity in the last 4 days and was not aware that the right leg was actually more erythematous recently. She denied any fever. In addition, she was noted to be hypoxic in the emergency room with an oxygen saturation of 80% on room air. She was started on oxygen and had arterial blood gas with some CO2 retention with the pCO2 in the low 50s consistent with acute on chronic hypoxic and hypercarbic respiratory failure. I saw her in the emergency room and she had crackles in her lung bases and she has acute on chronic diastolic congestive heart failure. She did have a cardiac catheterization on 05/06/2020 and it showed nonobstructive coronary artery disease with a 60% left anterior descending artery stenosis without any physiologic abnormality and also had 100% obstruction of the obtuse marginal branch with left collaterals. She did develop a large right groin hematoma, as her cardiac catheterization was done on 05/06/2020 and she had ultrasound of that area and was seen by vascular surgeon, but there was no evidence of a pseudoaneurysm. So, the patient readmitted to [facility] today for uinsg-vi-hprmuya hypoxic respiratory failure and tdqrw-rg-[id number] diastolic congestive heart failure and cellulitis in the right lower extremity. She does have chronic venous insufficiency of the right leg and right leg is pretty edematous also. It should be noted that prior to this admission, she has noted some dyspnea on exertion, but denies any orthopnea. ALLERGIES AND INTOLERANCES: INCLUDE ADHESIVE, LISINOPRIL, MORPHINE AND SERTRALINE. MEDICATIONS: Prior to admission include amlodipine 5 mg every day, atorvastatin 40 mg at bedtime, furosemide 40 mg p.o. b.i.d., Tylenol 650 mg every 4 hours p.r.n., allopurinol 100 mg every day, aspirin 81 mg every day, ferrous sulfate 325 mg every other day, Lantus insulin 14 units at bedtime, Humalog 6 units before meals t.i.d. as long as the blood sugar is 90 or higher before meal. She is also on levothyroxine 150 mcg every day, metoprolol tartrate 25 mg b.i.d., Paxil 20 mg every day, potassium chloride 20 mEq every day, Senokot-S 2 tablets every day and she has Nystatin applied topically b.i.d. PAST MEDICAL HISTORY: Significant for hospitalizations at [facility] earlier this month, dismissed on 06/12/2020 at which time, she had acute on chronic diastolic congestive heart failure, had a metabolic encephalopathy aggravated by CO2 narcosis, acute on chronic hypoxic and hypercarbic respiratory failure and anasarca due to congestive heart failure. She has diabetes mellitus type 2, on insulin with peripheral neuropathy and nephropathy with chronic kidney disease stage 3 with a baseline serum creatinine around 1.4-1.7. She has nonobstructive coronary artery disease, hypertension, hyperlipidemia, recent cellulitis in the right leg earlier this month, morbid obesity and she had a large right groin hematoma following a cardiac catheterization, which was done 05/06/2020, has mild peripheral arterial disease, left below-knee amputation, amputation of two toes in the right foot and anemia of chronic disease. She has suspected obesity hypoventilation syndrome and she has obstructive sleep apnea and she says she uses CPAP at night. She also had a right groin hematoma following a cardiac catheterization on 05/06/2020. An echocardiogram also done on 05/06/2020 showed a left ventricular ejection fraction around 50% and during her cardiac catheterization, she was noted to have moderate pulmonary hypertension. She had increased filling pressures in the right and left lung consistent with congestive heart failure on 05/06/2020 during her cardiac catheterization. SOCIAL HISTORY: She does not drink alcohol nor does she smoke cigarettes. She has home health and she was just dismissed from a [facility] facility the other day and is . She has a left lower extremity prosthesis and uses a walker. FAMILY HISTORY: Noncontributory. REVIEW OF SYSTEMS: GENERAL: She denies any fever, chills or sweats. CARDIOVASCULAR: No chest pain. PULMONARY: She has dyspnea on exertion. GASTROINTESTINAL: No diarrhea. ENDOCRINE: She has diabetes mellitus. SKIN: Cellulitis, right leg. Rest of systems reviewed and are negative except as stated in history of present illness. PHYSICAL EXAMINATION: VITAL SIGNS: Temperature is 98.2 degrees, heart rate was 79, respiratory rate is 24, blood pressure 141/62, oxygen saturations 80% on room air, 100% on 2 liters per nasal cannula. HEENT: Eyes: Gaze is conjugate. Extraocular muscles are intact. Mouth: Tongue is midline without yeast. She has missing teeth on the upper part of her mouth, has few teeth in the lower portion. NECK: There is no cervical lymphadenopathy. HEART: Reveals an S1, S2. There is no S3 or murmur. LUNGS: Reveal decreased breath sounds with crackles in both bases. ABDOMEN: Soft, obese with no hepatosplenomegaly, masses or tenderness. EXTREMITIES: Lower extremities, she has got 2+ edema in the right lower extremity with weeping edema coming from an open area in the pretibial area of the right leg. She has amputation of two toes, I believe the second and third toes of the right foot. Right foot is warm. SKIN: She has got erythema involving the right foot, right calf and pretibial area all the way up to the distal thigh. There is weeping fluid again coming from the right pretibial area. Left lower extremity, she is wearing a prosthesis. NEUROLOGIC: She is coherent and alert, has no focal weakness of the upper extremities. No facial weakness. LABORATORY DATA: Review of her laboratory test: White count was 7.9, hemoglobin 9.7, platelet count 363,000, 76 polys, and 11 lymphocytes. Arterial blood gas showed a pH 7.39, pCO2 of 53 and a pO2 of 101 on oxygen 2 liters per nasal cannula. Sodium 142, potassium 4.1, chloride 101, total CO2 is 33, BUN 28, creatinine 1.4, blood sugar 275. Lactic acid level is high at 2.2. Liver function tests were normal. Troponin levels less than 0.017. The proBNP was high at 12,578. Albumin was 3.1. She had a chest x-ray done, which showed mild bibasilar interstitial infiltrates. No pneumothorax or pleural effusion. Heart was not enlarged and mild pulmonary edema, it could be compatible with mild pulmonary edema. X-ray of the right tibia and fibula showed no acute fracture of tibia or fibula. She had moderate arterial calcifications noted and an x-ray of the right foot showed amputation of the 2nd and 3rd toes of the right foot. No fracture was seen. No evidence of osteomyelitis in the foot. Electrocardiogram showed normal sinus rhythm with left axis deviation, left anterior hemiblock, delayed precordial R-wave progression. Nonspecific ST-T wave changes, and flattening of T-wave in V1. ASSESSMENT: 1. Cellulitis of the right leg. 2. Acute on chronic diastolic congestive heart failure manifested by crackles in the lungs, hypoxia and increasing peripheral edema in the right lower extremity and elevated proBNP. 3. Acute on chronic hypoxic and hypercapnic respiratory failure. She notes increasing dyspnea on exertion with just short distances. 4. Diabetes mellitus type 2, on insulin with peripheral neuropathy and nephropathy. 5. Chronic kidney disease stage 3. 6. Chronic venous insufficiency of the lower extremity. 7. Anemia of chronic disease. 8. Moderate protein calorie malnutrition. 9. Hypertension. 10. Hyperlipidemia. 11. Morbid obesity. 12. Obstructive sleep apnea. 13. Nonobstructive coronary artery disease. 14. Left below-knee amputation with amputations of the second and third toes of the right foot. 15. Mild peripheral arterial disease. PLAN: At this time is admitted to a telemetry unit at [facility] as a full inpatient admission. We will discontinue IV vancomycin due to her renal insufficiency, but she did get 2 grams IV in the emergency room and instead will put her on Zyvox 600 mg IV every 12 hours and meropenem 500 mg IV every 8 hours and we will discontinue the Paxil because of potential interaction with Zyvox. We will consult Dr. Arnie Marquez for infectious disease. Consult Dr. Shankar for pulmonary and consult Dr. Powers for cardiology. We will discontinue that oral Lasix and put her on Lasix 40 mg IV every 12 hours with a 1500 mL fluid restriction, cardiac diabetic diet, following her intake and output every [address] Cifuentes catheter to monitor urine output better. Since her cardiac catheterization and a large groin hematoma several weeks ago, she had a cardiac catheterization in 05/06/2020 and hematoma in the right groin subsequent to that, I think we can probably use heparin 5000 units subQ every 12 hours instead of every 8 hours with a little bit of caution for deep vein thrombosis prophylaxis. We will check her CBC, BMP and prealbumin level tomorrow. We will continue with her current insulin dose. Continue potassium chloride. Continue amlodipine for the hypertension and atorvastatin for hyperlipidemia. Order physical and occupational therapy, which she can start hopefully next week. We will also get a venous Doppler of right lower extremity to rule out a deep vein thrombosis. LAURA/PRECIOUS/ADRIEL DR: Pearl TID: [id number]
[2020-06-30 03:35] VITALS: BP 122/63
[2020-06-30] MEDS: LEVOTHYROXINE 150 MCG TABLET PO SCH (05:04)
[2020-06-30] MEDS: MEROPENEM 500 MG in IV NORMAL SALINE 50ML 50 ML IV SCH ×3 (05:05→23:05)
[2020-06-30 07:31] VITALS: BP 139/56
[2020-06-30] MEDS ORDERED: POTASSIUM CHLORIDE 20 MEQ TABLET.ER. PO SCH (08:00)
[2020-06-30 08:18] LABS: BASO # 0.1 x10^3/uL (0.0-0.2); BASO % 1 % (0-3); EOS # 0.4 x10^3/uL (0.0-0.7); EOS % 4 % (0-3); HEMOGLOBIN 9.7 g/dL (12.0-15.5); LYMPH % 10 % (24-48); MEAN CORPUSCULAR HEMOGLOBIN 27 pg (25-35); MEAN CORPUSCULAR HGB CONC 31 g/dL (31-37); MEAN CORPUSCULAR VOLUME 86 fL (79-100); MONO # 0.8 x10^3/uL (0.0-1.1); MONO % 8 % (0-9); NEUT # 7.6 x10^3/uL (1.8-7.7); NEUT % 77 % (31-73); PLATELET COUNT 268 x10^3/uL (140-400); RED BLOOD COUNT 3.62 x10^6/uL (3.50-5.40); RED CELL DISTRIBUTION WIDTH 19.3 % (11.5-14.5); WHITE BLOOD COUNT 9.8 x10^3/uL (4.0-11.0)
[2020-06-30] MEDS: FUROSEMIDE 40 MG/4 ML VIAL. IVP SCH ×2 (08:24→14:53)
[2020-06-30] MEDS: ASPIRIN CHEWABLE 81 MG TABLET. PO SCH (08:24)
[2020-06-30] MEDS: METOPROLOL SUCC 24HR ER 50 MG TAB.ER.24H. PO SCH (08:30)
[2020-06-30] MEDS: ALLOPURINOL 100 MG TABLET. PO SCH (08:30)
--- NOTE | 2020-06-30 08:31 | CONS ---
DATE OF CONSULTATION: 06/30/2020 REASON FOR CONSULTATION: I was asked to see this 79-year-old lady for acute on chronic respiratory failure. HISTORY OF PRESENT ILLNESS: She has remote history of minimal smoking in . She was discharged from [facility] yesterday. Visiting nurse saw her at her home and advised her to go to the emergency room because of her right lower leg edema and redness. She has had increased shortness of breath and increased lower extremity edema. She denies cough, fever or chills. She does have a CPAP, which she uses irregularly. She is currently on 3 liters of oxygen per minute via nasal cannula. She is on 2 liters per minute via nasal cannula at home. PAST MEDICAL HISTORY: Obstructive sleep apnea/hypopnea syndrome, obesity hypoventilation syndrome, coronary artery disease, diastolic CHF, left below-knee amputation. PAST SURGICAL HISTORY: Appendectomy, tonsillectomy, hysterectomy, hypothyroidism, hypertension, diabetes mellitus. ALLERGIES: ADHESIVE, LISINOPRIL, MORPHINE, SERTRALINE. MEDICATIONS: Currently, she is on ferrous sulfate, Norvasc, Toprol, KCl, aspirin, Synthroid, Paxil, heparin subQ, linezolid, insulin, meropenem, Lasix 40 mg IV b.i.d. SOCIAL HISTORY: Remote minimal history of smoking. FAMILY HISTORY: Positive for hypertension. REVIEW OF SYSTEMS: As mentioned as above. She has had her CPAP for 10 years. Other systems otherwise negative. PHYSICAL EXAMINATION: GENERAL: This is an overweight lady. Her O2 saturation on 3 liters of oxygen is 93%, respiratory rate 24, heart rate 94. VITAL SIGNS: Blood pressure 122/63, temperature 98. HEENT: Normocephalic, atraumatic. Pupils equal, round, reactive to light. Nose is clear. Throat: Shallow oropharynx. NECK: Short, thick. There is no lymphadenopathy or thyromegaly. CARDIOVASCULAR: Regular rate and rhythm. PMI is not displaced. Chest inspection is normal. LUNGS: There are bibasilar crackles, dullness at the bases. ABDOMEN: Soft and obese. Bowel sounds are good. EXTREMITIES: Right, there is edema, redness. There is dressing in place. Left status below-knee amputation. NEUROLOGIC: Alert and oriented. SKIN: Chronic changes. LABORATORY DATA: I reviewed the following lab data: Chest x-ray shows increased vascular marking, bibasilar atelectasis. Lower extremity venous Doppler negative. ABG on 2 liters of oxygen, pH 7.39, pCO2 of 53, pO2 of 101. Sodium 142, potassium 4.1, chloride 101, CO2 of 33, BUN 28, creatinine 1.4. Lactic acid 2.2. BNP 12,578. Troponin less than 0.017. WBC 7.9, hemoglobin 9.7, platelets 263. ASSESSMENT: 1. Acute on chronic respiratory failure secondary to acute diastolic congestive heart failure, inadequately treated obstructive sleep apnea/hypopnea syndrome and obesity hypoventilation syndrome. 2. Abnormal chest x-ray. 3. Acute diastolic congestive heart failure. 4. Obstructive sleep apnea/hypopnea syndrome and obesity hypoventilation syndrome. 5. Chronic kidney disease. 6. Diabetes mellitus. 7. Hypertension. 8. Right lower extremity cellulitis. 9. Coronary artery disease. 10. Peripheral arterial disease, status post left below-knee amputation. 11. Recent right groin hematoma. 12. History of nonsustained ventricular tachycardia. PLAN AND RECOMMENDATIONS: 1. Titrate FIO2 to keep O2 saturation 90%. 2. Agree with Lasix. Monitor I's and O's, creatinine and potassium. 3. Obstructive sleep apnea/hypopnea syndrome and obesity hypoventilation syndrome is not adequately treated. She will need a BiPAP titration as an outpatient. I will start her on BiPAP while she is at the hospital. She did have hypoxemia on her home CPAP last night. 4. Continue antibiotic. 5. Heparin for DVT prophylaxis. 6. PT/OT. 7. Lower extremity venous Doppler negative for DVT. 8. I advised her to lose weight. 9. The findings and recommendations were discussed with the patient and RN. Thank you very much for allowing me to participate in care of this very nice lady. SHANE/MIKKI MALDONADO: Matthew TID: [id number]
[2020-06-30 08:32] LABS: CALCIUM 8.5 mg/dL (8.5-10.1); CREATININE 1.4 mg/dL (0.6-1.0); GFR 36.4; MAGNESIUM 2.2 mg/dL (1.8-2.4); POTASSIUM 3.8 mmol/L (3.5-5.1)
[2020-06-30] MEDS: HEPARIN for SUB-Q USE 5,000 UNIT/ML VIAL. SQ SCH ×2 (08:42→23:29)
[2020-06-30] MEDS: INSULIN LISPRO 300 UNITS/3 ML VIAL. SQ SCH ×3 (08:43→17:21)
[2020-06-30 10:20] VITALS: BP 133/57
--- NOTE | 2020-06-30 10:55 | PDOC ---
Infectious Disease Note Vital Sign Vital Signs Vital Signs Date Time Temp Pulse Resp B/P (MAP) Pulse Ox O2 Delivery O2 Flow Rate FiO2 06/30/20 10:20 97.7 77 20 133/57 (82) 98 Nasal Cannula 3.0 97.7 Labs Lab Laboratory Tests Test 06/29/20 11:37 06/29/20 12:24 06/29/20 16:24 06/29/20 16:40 White Blood Count 7.9 x10^3/uL (4.0-11.0) Red Blood Count 3.65 x10^6/uL (3.50-5.40) Hemoglobin 9.7 g/dL (12.0-15.5) Hematocrit 30.8 % (36.0-47.0) Mean Corpuscular Volume 84 fL (79-100) Mean Corpuscular Hemoglobin 27 pg (25-35) Mean Corpuscular Hemoglobin Concent 31 g/dL (31-37) Red Cell Distribution Width 19.0 % (11.5-14.5) Platelet Count 263 x10^3/uL (140-400) Neutrophils (%) (Auto) 76 % (31-73) Lymphocytes (%) (Auto) 11 % (24-48) Monocytes (%) (Auto) 9 % (0-9) Eosinophils (%) (Auto) 3 % (0-3) Basophils (%) (Auto) 1 % (0-3) Neutrophils # (Auto) 6.0 x10^3/uL (1.8-7.7) Lymphocytes # (Auto) 0.9 x10^3/uL (1.0-4.8) Monocytes # (Auto) 0.7 x10^3/uL (0.0-1.1) Eosinophils # (Auto) 0.3 x10^3/uL (0.0-0.7) Basophils # (Auto) 0.1 x10^3/uL (0.0-0.2) Sodium Level 142 mmol/L (136-145) Potassium Level 4.1 mmol/L (3.5-5.1) Chloride Level 101 mmol/L (98-107) Carbon Dioxide Level 33 mmol/L (21-32) Anion Gap 8 (6-14) Blood Urea Nitrogen 28 mg/dL (7-20) Creatinine 1.4 mg/dL (0.6-1.0) Estimated GFR (Cockcroft-Gault) 36.4 BUN/Creatinine Ratio 20 (6-20) Glucose Level 275 mg/dL (70-99) Lactic Acid Level 2.2 mmol/L (0.4-2.0) 1.1 mmol/L (0.4-2.0) Calcium Level 8.7 mg/dL (8.5-10.1) Total Bilirubin 0.8 mg/dL (0.2-1.0) Aspartate Amino Transf (AST/SGOT) 12 U/L (15-37) Alanine Aminotransferase (ALT/SGPT) 19 U/L (14-59) Alkaline Phosphatase 107 U/L (46-116) Troponin I Quantitative < 0.017 ng/mL (0.000-0.055) C-Reactive Protein, Quantitative 19.8 mg/L (0-3.3) TQ-Ona-M-Type Natriuretic Peptide 86792 pg/mL (0-449) Total Protein 7.6 g/dL (6.4-8.2) Albumin 3.1 g/dL (3.4-5.0) Albumin/Globulin Ratio 0.7 (1.0-1.7) O2 Saturation 97 % (92-99) Arterial Blood pH 7.39 (7.35-7.45) Arterial Blood pCO2 at Patient Temp 53 mmHg (35-46) Arterial Blood pO2 at Patient Temp 101 mmHg (65-108) Arterial Blood HCO3 31 mmol/L (21-28) Arterial Blood Base Excess 6 mmol/L (-3-3) Oxyhemoglobin 95.9 % Methemoglobin 0.4 % (0.0-1.9) Carbon Monoxide, Quantitative 0.3 % (0.0-1.9) FiO2 2l nc Glucose (Fingerstick) 247 mg/dL (70-99) Test 06/29/20 20:57 06/30/20 06:30 06/30/20 08:26 Glucose (Fingerstick) 197 mg/dL (70-99) 217 mg/dL (70-99) White Blood Count 9.8 x10^3/uL (4.0-11.0) Red Blood Count 3.62 x10^6/uL (3.50-5.40) Hemoglobin 9.7 g/dL (12.0-15.5) Hematocrit 31.0 % (36.0-47.0) Mean Corpuscular Volume 86 fL (79-100) Mean Corpuscular Hemoglobin 27 pg (25-35) Mean Corpuscular Hemoglobin Concent 31 g/dL (31-37) Red Cell Distribution Width 19.3 % (11.5-14.5) Platelet Count 268 x10^3/uL (140-400) Neutrophils (%) (Auto) 77 % (31-73) Lymphocytes (%) (Auto) 10 % (24-48) Monocytes (%) (Auto) 8 % (0-9) Eosinophils (%) (Auto) 4 % (0-3) Basophils (%) (Auto) 1 % (0-3) Neutrophils # (Auto) 7.6 x10^3/uL (1.8-7.7) Lymphocytes # (Auto) 1.0 x10^3/uL (1.0-4.8) Monocytes # (Auto) 0.8 x10^3/uL (0.0-1.1) Eosinophils # (Auto) 0.4 x10^3/uL (0.0-0.7) Basophils # (Auto) 0.1 x10^3/uL (0.0-0.2) Sodium Level 141 mmol/L (136-145) Potassium Level 3.8 mmol/L (3.5-5.1) Chloride Level 102 mmol/L (98-107) Carbon Dioxide Level 36 mmol/L (21-32) Anion Gap 3 (6-14) Blood Urea Nitrogen 26 mg/dL (7-20) Creatinine 1.4 mg/dL (0.6-1.0) Estimated GFR (Cockcroft-Gault) 36.4 Glucose Level 213 mg/dL (70-99) Calcium Level 8.5 mg/dL (8.5-10.1) Magnesium Level 2.2 mg/dL (1.8-2.4) Objective Assessment Recurent cellulitis RLE. Mild bibasislr infiltrates Type II DM with peripheral neuraopathy CKD CHF PAD Obesity Cat exposure h/o MRSA and ESBL Plan Plan of Care Zyvox and Merrem Leg elevation Local wound care Monitor WBC trend and temp Discussed with nursing Thank you #[phone] Improving already. Leg less red and min warmth No F/C/S/N/V/D/trauma D/w Attending Co-Sign Attending Co-Sign The patient was seen and interviewed as well as examined at the bedside. The chart was reviewed. The case was discussed. Agree with the plan of care. AISHA CHOI APRN Jun 30, 2020 10:55 SHNA COTA MD Jun 30, 2020 14:37
[2020-06-30] MEDS ORDERED: metOLazone 2.5 MG TABLET PO ONE (11:15)
--- NOTE | 2020-06-30 11:16 | PDOC ---
PROGRESS NOTES Date of Service DATE: 06/30/20 TIME: 11:12 Subjective Subjective feels the same. not short of breath at rest. right leg is red and swollen from foot to distal thigh. lab reviewed RLE venous doppler neg for DVT. blood sugars are high and will increase insulin. has 350cc of urine in erickson bag.. l liter of urine output yesterday. Objective Objective Vital Signs Date Time Temp Pulse Resp B/P (MAP) Pulse Ox O2 Delivery O2 Flow Rate FiO2 06/30/20 10:20 97.7 77 20 133/57 (82) 98 Nasal Cannula 3.0 97.7 Intake and Output 06/30/20 07:00 Intake Total 760 ml Output Total 1050 ml Balance -290 ml Intake Oral 760 ml Output Urine Total 1050 ml Physical Exam Abdomen: Soft, Other (obese) Heart: Regular rate, Normal S1, Normal S2 Extremities: Other (2 plus edema RLE with redness) General: Alert HEENT: Atraumatic Lungs: Other (decreased breath sounds) Neuro: Normal speech Psych/Mental Status: Mental status NL Skin: Other (right leg red. left BKA) Assessment Assessment Problems1. Cellulitis of the right leg. 2. Acute on chronic diastolic congestive heart failure manifested by crackles in the lungs, hypoxia and increasing peripheral edema in the right lower extremity and elevated proBNP. 3. Acute on chronic hypoxic and hypercapnic respiratory failure. She notes increasing dyspnea on exertion with just short distances. 4. Diabetes mellitus type 2, on insulin with peripheral neuropathy and nephropathy. 5. Chronic kidney disease stage 3. 6. Chronic venous insufficiency of the lower extremity. 7. Anemia of chronic disease. 8. Moderate protein calorie malnutrition. 9. Hypertension. 10. Hyperlipidemia. 11. Morbid obesity. 12. Obstructive sleep apnea. 13. Nonobstructive coronary artery disease. 14. Left below-knee amputation with amputations of the second and third toes of the right foot. 15. Mild peripheral arterial disease. Medical Problems: (1) Cellulitis Status: Acute (2) CHF exacerbation Status: Acute Plan Plan of Care continue iv lasix metolazone now increase kcl continue zosyn and meropenem continue oxygen increase insulin lab tomorrow bipap at hs Comment Review of Relevant I have reviewed the following items helio (where applicable) has been applied. Labs Laboratory Tests Test 06/29/20 11:37 06/29/20 12:24 06/29/20 16:24 06/29/20 16:40 White Blood Count 7.9 x10^3/uL (4.0-11.0) Red Blood Count 3.65 x10^6/uL (3.50-5.40) Hemoglobin 9.7 g/dL (12.0-15.5) Hematocrit 30.8 % (36.0-47.0) Mean Corpuscular Volume 84 fL (79-100) Mean Corpuscular Hemoglobin 27 pg (25-35) Mean Corpuscular Hemoglobin Concent 31 g/dL (31-37) Red Cell Distribution Width 19.0 % (11.5-14.5) Platelet Count 263 x10^3/uL (140-400) Neutrophils (%) (Auto) 76 % (31-73) Lymphocytes (%) (Auto) 11 % (24-48) Monocytes (%) (Auto) 9 % (0-9) Eosinophils (%) (Auto) 3 % (0-3) Basophils (%) (Auto) 1 % (0-3) Neutrophils # (Auto) 6.0 x10^3/uL (1.8-7.7) Lymphocytes # (Auto) 0.9 x10^3/uL (1.0-4.8) Monocytes # (Auto) 0.7 x10^3/uL (0.0-1.1) Eosinophils # (Auto) 0.3 x10^3/uL (0.0-0.7) Basophils # (Auto) 0.1 x10^3/uL (0.0-0.2) Sodium Level 142 mmol/L (136-145) Potassium Level 4.1 mmol/L (3.5-5.1) Chloride Level 101 mmol/L (98-107) Carbon Dioxide Level 33 mmol/L (21-32) Anion Gap 8 (6-14) Blood Urea Nitrogen 28 mg/dL (7-20) Creatinine 1.4 mg/dL (0.6-1.0) Estimated GFR (Cockcroft-Gault) 36.4 BUN/Creatinine Ratio 20 (6-20) Glucose Level 275 mg/dL (70-99) Lactic Acid Level 2.2 mmol/L (0.4-2.0) 1.1 mmol/L (0.4-2.0) Calcium Level 8.7 mg/dL (8.5-10.1) Total Bilirubin 0.8 mg/dL (0.2-1.0) Aspartate Amino Transf (AST/SGOT) 12 U/L (15-37) Alanine Aminotransferase (ALT/SGPT) 19 U/L (14-59) Alkaline Phosphatase 107 U/L (46-116) Troponin I Quantitative < 0.017 ng/mL (0.000-0.055) C-Reactive Protein, Quantitative 19.8 mg/L (0-3.3) LL-Uer-E-Type Natriuretic Peptide 77334 pg/mL (0-449) Total Protein 7.6 g/dL (6.4-8.2) Albumin 3.1 g/dL (3.4-5.0) Albumin/Globulin Ratio 0.7 (1.0-1.7) O2 Saturation 97 % (92-99) Arterial Blood pH 7.39 (7.35-7.45) Arterial Blood pCO2 at Patient Temp 53 mmHg (35-46) Arterial Blood pO2 at Patient Temp 101 mmHg (65-108) Arterial Blood HCO3 31 mmol/L (21-28) Arterial Blood Base Excess 6 mmol/L (-3-3) Oxyhemoglobin 95.9 % Methemoglobin 0.4 % (0.0-1.9) Carbon Monoxide, Quantitative 0.3 % (0.0-1.9) FiO2 2l nc Glucose (Fingerstick) 247 mg/dL (70-99) Test 06/29/20 20:57 06/30/20 06:30 06/30/20 08:26 Glucose (Fingerstick) 197 mg/dL (70-99) 217 mg/dL (70-99) White Blood Count 9.8 x10^3/uL (4.0-11.0) Red Blood Count 3.62 x10^6/uL (3.50-5.40) Hemoglobin 9.7 g/dL (12.0-15.5) Hematocrit 31.0 % (36.0-47.0) Mean Corpuscular Volume 86 fL (79-100) Mean Corpuscular Hemoglobin 27 pg (25-35) Mean Corpuscular Hemoglobin Concent 31 g/dL (31-37) Red Cell Distribution Width 19.3 % (11.5-14.5) Platelet Count 268 x10^3/uL (140-400) Neutrophils (%) (Auto) 77 % (31-73) Lymphocytes (%) (Auto) 10 % (24-48) Monocytes (%) (Auto) 8 % (0-9) Eosinophils (%) (Auto) 4 % (0-3) Basophils (%) (Auto) 1 % (0-3) Neutrophils # (Auto) 7.6 x10^3/uL (1.8-7.7) Lymphocytes # (Auto) 1.0 x10^3/uL (1.0-4.8) Monocytes # (Auto) 0.8 x10^3/uL (0.0-1.1) Eosinophils # (Auto) 0.4 x10^3/uL (0.0-0.7) Basophils # (Auto) 0.1 x10^3/uL (0.0-0.2) Sodium Level 141 mmol/L (136-145) Potassium Level 3.8 mmol/L (3.5-5.1) Chloride Level 102 mmol/L (98-107) Carbon Dioxide Level 36 mmol/L (21-32) Anion Gap 3 (6-14) Blood Urea Nitrogen 26 mg/dL (7-20) Creatinine 1.4 mg/dL (0.6-1.0) Estimated GFR (Cockcroft-Gault) 36.4 Glucose Level 213 mg/dL (70-99) Calcium Level 8.5 mg/dL (8.5-10.1) Magnesium Level 2.2 mg/dL (1.8-2.4) Laboratory Tests Test 06/29/20 11:37 06/29/20 12:24 06/29/20 16:24 06/29/20 16:40 White Blood Count 7.9 x10^3/uL (4.0-11.0) Red Blood Count 3.65 x10^6/uL (3.50-5.40) Hemoglobin 9.7 g/dL (12.0-15.5) Hematocrit 30.8 % (36.0-47.0) Mean Corpuscular Volume 84 fL (79-100) Mean Corpuscular Hemoglobin 27 pg (25-35) Mean Corpuscular Hemoglobin Concent 31 g/dL (31-37) Red Cell Distribution Width 19.0 % (11.5-14.5) Platelet Count 263 x10^3/uL (140-400) Neutrophils (%) (Auto) 76 % (31-73) Lymphocytes (%) (Auto) 11 % (24-48) Monocytes (%) (Auto) 9 % (0-9) Eosinophils (%) (Auto) 3 % (0-3) Basophils (%) (Auto) 1 % (0-3) Neutrophils # (Auto) 6.0 x10^3/uL (1.8-7.7) Lymphocytes # (Auto) 0.9 x10^3/uL (1.0-4.8) Monocytes # (Auto) 0.7 x10^3/uL (0.0-1.1) Eosinophils # (Auto) 0.3 x10^3/uL (0.0-0.7) Basophils # (Auto) 0.1 x10^3/uL (0.0-0.2) Sodium Level 142 mmol/L (136-145) Potassium Level 4.1 mmol/L (3.5-5.1) Chloride Level 101 mmol/L (98-107) Carbon Dioxide Level 33 mmol/L (21-32) Anion Gap 8 (6-14) Blood Urea Nitrogen 28 mg/dL (7-20) Creatinine 1.4 mg/dL (0.6-1.0) Estimated GFR (Cockcroft-Gault) 36.4 BUN/Creatinine Ratio 20 (6-20) Glucose Level 275 mg/dL (70-99) Lactic Acid Level 2.2 mmol/L (0.4-2.0) 1.1 mmol/L (0.4-2.0) Calcium Level 8.7 mg/dL (8.5-10.1) Total Bilirubin 0.8 mg/dL (0.2-1.0) Aspartate Amino Transf (AST/SGOT) 12 U/L (15-37) Alanine Aminotransferase (ALT/SGPT) 19 U/L (14-59) Alkaline Phosphatase 107 U/L (46-116) Troponin I Quantitative < 0.017 ng/mL (0.000-0.055) C-Reactive Protein, Quantitative 19.8 mg/L (0-3.3) ER-Hmi-Z-Type Natriuretic Peptide 01998 pg/mL (0-449) Total Protein 7.6 g/dL (6.4-8.2) Albumin 3.1 g/dL (3.4-5.0) Albumin/Globulin Ratio 0.7 (1.0-1.7) O2 Saturation 97 % (92-99) Arterial Blood pH 7.39 (7.35-7.45) Arterial Blood pCO2 at Patient Temp 53 mmHg (35-46) Arterial Blood pO2 at Patient Temp 101 mmHg (65-108) Arterial Blood HCO3 31 mmol/L (21-28) Arterial Blood Base Excess 6 mmol/L (-3-3) Oxyhemoglobin 95.9 % Methemoglobin 0.4 % (0.0-1.9) Carbon Monoxide, Quantitative 0.3 % (0.0-1.9) FiO2 2l nc Glucose (Fingerstick) 247 mg/dL (70-99) Test 06/29/20 20:57 06/30/20 06:30 06/30/20 08:26 Glucose (Fingerstick) 197 mg/dL (70-99) 217 mg/dL (70-99) White Blood Count 9.8 x10^3/uL (4.0-11.0) Red Blood Count 3.62 x10^6/uL (3.50-5.40) Hemoglobin 9.7 g/dL (12.0-15.5) Hematocrit 31.0 % (36.0-47.0) Mean Corpuscular Volume 86 fL (79-100) Mean Corpuscular Hemoglobin 27 pg (25-35) Mean Corpuscular Hemoglobin Concent 31 g/dL (31-37) Red Cell Distribution Width 19.3 % (11.5-14.5) Platelet Count 268 x10^3/uL (140-400) Neutrophils (%) (Auto) 77 % (31-73) Lymphocytes (%) (Auto) 10 % (24-48) Monocytes (%) (Auto) 8 % (0-9) Eosinophils (%) (Auto) 4 % (0-3) Basophils (%) (Auto) 1 % (0-3) Neutrophils # (Auto) 7.6 x10^3/uL (1.8-7.7) Lymphocytes # (Auto) 1.0 x10^3/uL (1.0-4.8) Monocytes # (Auto) 0.8 x10^3/uL (0.0-1.1) Eosinophils # (Auto) 0.4 x10^3/uL (0.0-0.7) Basophils # (Auto) 0.1 x10^3/uL (0.0-0.2) Sodium Level 141 mmol/L (136-145) Potassium Level 3.8 mmol/L (3.5-5.1) Chloride Level 102 mmol/L (98-107) Carbon Dioxide Level 36 mmol/L (21-32) Anion Gap 3 (6-14) Blood Urea Nitrogen 26 mg/dL (7-20) Creatinine 1.4 mg/dL (0.6-1.0) Estimated GFR (Cockcroft-Gault) 36.4 Glucose Level 213 mg/dL (70-99) Calcium Level 8.5 mg/dL (8.5-10.1) Magnesium Level 2.2 mg/dL (1.8-2.4) Medications Current Medications Vancomycin HCl (Vanco Per Pharmacy) 1 each PRN DAILY PRN MC SEE COMMENTS; Start 06/29/20 at 12:45; Stop 06/29/20 at 15:36; Status DC Vancomycin HCl 2 gm/Sodium Chloride 500 ml @ 250 mls/hr 1X ONCE IV Last administered on 06/29/20at 13:48; Start 06/29/20 at 13:00; Stop 06/29/20 at 14:59; Status DC Sodium Chloride 1,000 ml @ 250 mls/hr 1X ONCE IV Last administered on 06/29/20at 13:47; Start 06/29/20 at 13:30; Stop 06/29/20 at 15:36; Status DC Atorvastatin Calcium (Lipitor) 40 mg QHS PO Last administered on 06/29/20at 21:38; Start 06/29/20 at 21:00 Furosemide (Lasix) 40 mg [id number] IVP Last administered on 06/30/20at 08:24; Start 06/29/20 at 16:00 Acetaminophen (Tylenol) 650 mg PRN Q6HRS PRN PO MILD PAIN / TEMP > 100.3'F; Start 06/29/20 at 15:30 Allopurinol (Zyloprim) 100 mg DAILY PO Last administered on 06/30/20 08:30; Start 06/30/20 at 09:00 Aspirin (Aspirin Chewable) 81 mg [id number] PO Last administered on 06/30/20 08:24; Start 06/30/20 at 08:00 Ferrous Sulfate (Feosol) 325 mg QODAY PO ; Start 07/01/20 at 09:00 Insulin Glargine (Lantus Syringe) 14 unit QHS SQ Last administered on 06/29/20 21:42; Start 06/29/20 at 21:00 Insulin Human Lispro (HumaLOG) 6 units TIDAC SQ Last administered on 06/30/20 08:43; Start 06/29/20 at 16:30 Levothyroxine Sodium (Synthroid) 150 mcg DAILY06 PO Last administered on 06/30/20 05:04; Start 06/30/20 at 06:00 Metoprolol Succinate (Toprol Xl) 50 mg DAILY PO Last administered on 06/30/20 08:30; Start 06/30/20 at 09:00 Potassium Chloride (Klor-Con) 20 meq DAILYWBKFT PO Last administered on 06/30/20 08:24; Start 06/30/20 at 08:00 Senna/Docusate Sodium (Senna Plus) 2 tab QHS PO Last administered on 06/29/20 21:38; Start 06/29/20 at 21:00 Amlodipine Besylate (Norvasc) 5 mg DAILY PO Last administered on 06/30/20 08:30; Start 06/30/20 at 09:00 Linezolid/Dextrose 300 ml @ 300 mls/hr Q12HR IV Last administered on 06/30/20 08:21; Start 06/29/20 at 21:00 Meropenem 500 mg/ Sodium Chloride 50 ml @ 100 mls/hr Q8HRS IV Last administered on 06/30/20 05:05; Start 06/29/20 at 16:00 Heparin Sodium (Porcine) (Heparin Sodium) 5,000 unit Q12HR SQ Last administered on 06/30/20 08:42; Start 06/29/20 at 21:00 Lorazepam (Ativan) 0.25 mg 1X ONCE PO Last administered on 06/30/20 00:16; Start 06/30/20 at 00:30; Stop 06/30/20 at 00:31; Status DC Paroxetine HCl (Paxil) 10 mg DAILY PO Last administered on 06/30/20at 08:24; Start 06/30/20 at 00:30 Lactobacillus Rhamnosus (Culturelle) 1 cap BID PO ; Start 06/30/20 at 21:00 Active Scripts Active Furosemide 40 Mg Tablet 40 Mg PO BID Amlodipine Besylate 5 Mg Tablet 5 Mg PO DAILY Atorvastatin Calcium 40 Mg Tablet 40 Mg PO QHS Admelog (Insulin Lispro) 100 Unit/1 Ml Vial 6 Units SQ TIDAC hold if blood sugar less than 90 before a meal Lantus (Insulin Glargine,Hum.rec.anlog) 100 Unit/1 Ml Vial 14 Unit SQ QHS Klor-Con M20 (Potassium Chloride) 20 Meq Tab.er.prt 20 Meq PO DAILY Nyamyc (Nystatin) 15 Gm Powder 1 Renee TP BID Stool Soft-Stimulant Lax Tab (Sennosides/Docusate Sodium) 1 Each Tablet 2 Tab PO DAILY Metoprolol Tartrate 25 Mg Tablet 25 Mg PO BID Feosol (Ferrous Sulfate) 325 Mg Tablet 325 Mg PO QODAY Synthroid (Levothyroxine Sodium) 150 Mcg Tablet 150 Mcg PO DAILY06 Allopurinol 100 Mg Tablet 100 Mg PO DAILY Paroxetine Hcl 20 Mg Tablet 20 Mg PO DAILY Reported Aspirin 81 Mg Tab.chew 81 Mg PO HS Tylenol (Acetaminophen) 325 Mg Tablet 650 Mg PO PRN Q4HRS Vitals/I & O Vital Sign - Last 24 Hours 06/29/20 06/29/20 06/29/20 06/29/20 11:48 12:48 13:41 13:48 Pulse 24 70 72 B/P (MAP) 154/70 (98) 130/59 (82) 150/72 (98) Pulse Ox 100 99 100 98 O2 Delivery Nasal Cannula Nasal Cannula Nasal Cannula Nasal Cannula O2 Flow Rate 2.0 2.0 2.0 2.0 06/29/20 06/29/20 06/29/20 06/29/20 15:35 17:00 19:00 19:48 Temp 97.8 97.8 97.9 97.8 97.8 97.9 Pulse 77 79 72 Resp 20 20 22 B/P (MAP) 140/60 (86) 135/61 (85) 100/67 (78) Pulse Ox 93 95 92 O2 Delivery Nasal Cannula Nasal Cannula Nasal Cannula Nasal Cannula O2 Flow Rate 2.0 2.0 2.0 2.0 06/29/20 06/29/20 06/30/20 06/30/20 21:00 23:30 03:35 03:45 Temp 97.7 98.0 97.7 98.0 Pulse 78 94 Resp 22 24 B/P (MAP) 136/62 (86) 122/63 (82) Pulse Ox 91 75 92 O2 Delivery Nasal Cannula Nasal Cannula BiPAP/CPAP Nasal Cannula O2 Flow Rate 2.0 2.0 2.0 06/30/20 06/30/20 06/30/20 06/30/20 07:31 07:57 08:30 08:30 Temp 97.6 97.6 Pulse 83 83 83 Resp 22 B/P (MAP) 139/56 (83) 139/56 139/56 Pulse Ox 93 O2 Delivery Nasal Cannula Nasal Cannula O2 Flow Rate 4.0 4.0 06/30/20 10:20 Temp 97.7 97.7 Pulse 77 Resp 20 B/P (MAP) 133/57 (82) Pulse Ox 98 O2 Delivery Nasal Cannula O2 Flow Rate 3.0 Intake and Output 06/29/20 06/29/20 06/30/20 15:00 23:00 07:00 Intake Total 280 ml 480 ml Output Total 1050 ml Balance 280 ml -570 ml Justifications for Admission Other Justification ETRE ALLISON MD Jun 30, 2020 11:16
--- NOTE | 2020-06-30 11:30 | CONS ---
DATE OF CONSULTATION: 06/30/2020 REFERRING PHYSICIAN: Dr. Lara. REASON FOR CONSULTATION: Cellulitis, right lower extremity. HISTORY OF PRESENT ILLNESS: The patient is a 79-year-old female who has a past medical history of obesity, type 2 diabetes mellitus with peripheral neuropathy, peripheral arterial disease, left BKA and chronic diastolic congestive heart failure. She was recently hospitalized here at [facility] last month for a cellulitis of right lower extremity, which improved with Zyvox. She was released to a correction facility and eventually returned home. The patient says her leg was looking better until yesterday when she noticed it was more red, swollen and weeping. She has since been readmitted and started on Zyvox and meropenem. PAST MEDICAL HISTORY: Obesity, type 2 diabetes mellitus, peripheral neuropathy, peripheral arterial disease, chronic diastolic congestive heart failure, hyperlipidemia, hypothyroidism, hypertension, obstructive sleep apnea, chronic gout, history of ESBL producing E. coli UTI, history of arrhythmia, MRSA and chronic kidney disease stage 3, history of right groin hematoma. PAST SURGICAL HISTORY: Left below-knee amputation in 2013, hysterectomy and salpingo-oophorectomy for endometrial carcinoma in the past, cataract extractions, tonsillectomy, carpal tunnel release, appendectomy, cardiac catheterization on 05/06/2020. SOCIAL HISTORY: The patient is and lives at home. She has about 8 cats in the house. She is a former smoker. FAMILY HISTORY: Noncontributory. ALLERGIES: ADHESIVE, LISINOPRIL, MORPHINE, SERTRALINE. MEDICATIONS: Zyvox, meropenem, probiotics. Other medications are available and have been reviewed on the MAR. REVIEW OF SYSTEMS: The patient says when she returned home, she had a couple cats jumped on her and scratched her upper right leg area. She denies fevers, chills, sweats or body aches. She is on chronic supplemental oxygen. Denies worsening shortness of air, chest discomfort or cough. Denies nausea, vomiting or diarrhea. Denies rash or itching. PHYSICAL EXAMINATION: VITAL SIGNS: Temperature is 97.7, blood pressure 133/57, heart rate 77, respiratory rate 20, pulse oximetry is 98% on 3 liters oxygen. GENERAL: The patient is sitting in the chair, alert, appears well. HEENT: Normal conjunctivae. Oropharynx pink and moist. No lesions seen. NECK: Supple. LUNGS: Clear to auscultation. No accessory muscle use. HEART: S1 and S2. ABDOMEN: Obese, soft, nontender with bowel sounds present. GENITOURINARY: Indwelling Cifuentes in place. EXTREMITIES: Left BKA prosthesis in place. Right lower extremity 2+ edema up to the groin area associated with erythema, warmth and weeping. SKIN: Warm to touch. No signs of rash. NEUROLOGIC: Alert and answering questions appropriately. PERIPHERAL IV: Looks okay. LABORATORY DATA: WBC 9.8, hemoglobin 9.7, platelets 268,000. Sodium 141, potassium 3.8, glucose 213, creatinine 1.4, BUN 26. Lactic acid 1.1. Total bilirubin 0.8, AST 12, ALT 19. CRP 19.8, albumin 3.1. Troponin less than 0.017. Lower extremity ultrasound showed no evidence of DVT. Tibia/fibula x-ray showed no radiographic evidence of osteomyelitis. Foot x-ray showed hammertoe deformities, second and third amputation. Chest x-ray showed mild bibasilar infiltrates. IMPRESSION: 1. Recurrent cellulitis, right lower extremity. 2. Mild bibasilar infiltrates. 3. Type 2 diabetes mellitus with peripheral neuropathy. 4. Chronic kidney disease. 5. Peripheral arterial disease. 6. Obesity. 7. Cat exposure. 8. History of methicillin-resistant Staphylococcus aureus and extended spectrum beta-lactamase. 9. Acute on chronic diastolic congestive heart failure. PLAN: 1. Continue Zyvox and meropenem. 2. Leg elevation 3. Monitor WBC trend and temperature. 4. Follow up blood cultures. 5. Supportive care. 6. Discussed with nursing. Thank you, Dr. Lara for asking us to participate in this patient's care. Should you have further questions or concerns, please call. [facility] [place] : Karl TID: [id number]
[2020-06-30] MEDS: POTASSIUM CHLORIDE 20 MEQ TABLET.ER. PO SCH ×2 (12:29→17:16)
[2020-06-30 14:54] VITALS: BP 121/52
[2020-06-30 19:35] VITALS: BP 130/58
[2020-06-30] MEDS: ATORVASTATIN CALCIUM 40 MG TABLET. PO SCH (23:03)
[2020-06-30] MEDS: LACTOBACILLUS RHAMNOSUS GG 1 CAPSULE. PO SCH (23:03)
[2020-06-30] MEDS: SENNOSIDES/DOCUSATE 8.6/50MG TABLET. PO SCH (23:03)
[2020-06-30 23:05] VITALS: BP 108/63
[2020-06-30] MEDS: INSULIN GLARGINE SYRINGE. SQ SCH (23:30)
[2020-07-01 03:10] VITALS: BP 118/64
[2020-07-01] MEDS: LEVOTHYROXINE 150 MCG TABLET PO SCH (06:10)
[2020-07-01] MEDS: MEROPENEM 500 MG in IV NORMAL SALINE 50ML 50 ML IV SCH ×3 (06:11→21:46)
[2020-07-01 07:00] VITALS: BP 143/57
[2020-07-01 07:19] LABS: BASO # 0.1 x10^3/uL (0.0-0.2); BASO % 1 % (0-3); EOS # 0.4 x10^3/uL (0.0-0.7); EOS % 5 % (0-3); HEMATOCRIT 29.3 % (36.0-47.0); HEMOGLOBIN 9.2 g/dL (12.0-15.5); LYMPH # 0.9 x10^3/uL (1.0-4.8); LYMPH % 12 % (24-48); MEAN CORPUSCULAR HEMOGLOBIN 27 pg (25-35); MEAN CORPUSCULAR HGB CONC 31 g/dL (31-37); MEAN CORPUSCULAR VOLUME 85 fL (79-100); MONO # 0.7 x10^3/uL (0.0-1.1); MONO % 9 % (0-9); NEUT # 5.7 x10^3/uL (1.8-7.7); NEUT % 74 % (31-73); PLATELET COUNT 236 x10^3/uL (140-400); RED BLOOD COUNT 3.46 x10^6/uL (3.50-5.40); RED CELL DISTRIBUTION WIDTH 18.8 % (11.5-14.5); WHITE BLOOD COUNT 7.8 x10^3/uL (4.0-11.0)
[2020-07-01 07:50] LABS: BLOOD UREA NITROGEN 24 mg/dL (7-20); CALCIUM 8.4 mg/dL (8.5-10.1); CARBON DIOXIDE 40 mmol/L (21-32); CHLORIDE 103 mmol/L (98-107); CREATININE 1.3 mg/dL (0.6-1.0); GFR 39.6; GLUCOSE 185 mg/dL (70-99); MAGNESIUM 2.2 mg/dL (1.8-2.4); POTASSIUM 4.3 mmol/L (3.5-5.1); SODIUM 143 mmol/L (136-145)
[2020-07-01] MEDS: METOPROLOL SUCC 24HR ER 50 MG TAB.ER.24H. PO SCH (08:43)
[2020-07-01] MEDS: LACTOBACILLUS RHAMNOSUS GG 1 CAPSULE. PO SCH ×2 (08:43→20:29)
[2020-07-01] MEDS: PARoxetine 10 MG TABLET PO SCH (08:43)
[2020-07-01] MEDS: POTASSIUM CHLORIDE 20 MEQ TABLET.ER. PO SCH ×2 (08:45→17:27)
[2020-07-01] MEDS: ALLOPURINOL 100 MG TABLET. PO SCH (08:45)
[2020-07-01] MEDS: FUROSEMIDE 40 MG/4 ML VIAL. IVP SCH ×2 (08:45→13:40)
[2020-07-01] MEDS: ASPIRIN CHEWABLE 81 MG TABLET. PO SCH (08:45)
[2020-07-01] MEDS: HEPARIN for SUB-Q USE 5,000 UNIT/ML VIAL. SQ SCH ×2 (08:54→20:33)
[2020-07-01] MEDS: FERROUS SULFATE 325 MG TABLET. PO SCH (09:00)
--- NOTE | 2020-07-01 09:01 | PDOC ---
Infectious Disease Note Subjective: Subjective Patient feels a little better Still has swelling right lower extremity Vital Signs: Vital Signs Vital Signs Date Time Temp Pulse Resp B/P (MAP) Pulse Ox O2 Delivery O2 Flow Rate FiO2 07/01/20 08:45 70 143/57 07/01/20 08:00 Nasal Cannula 3.0 07/01/20 07:00 98.1 18 90 98.1 Physical Exam: PHYSICAL EXAM GENERAL: The patient is sitting in the chair, alert, appears well. HEENT: Normal conjunctivae. Oropharynx pink and moist. No lesions seen. NECK: Supple. LUNGS: Clear to auscultation. No accessory muscle use. HEART: S1 and S2. ABDOMEN: Obese, soft, nontender with bowel sounds present. GENITOURINARY: Indwelling Cifuentes in place. EXTREMITIES: Left BKA prosthesis in place. Right lower extremity 2+ edema up to the groin area associated with erythema, warmth and weeping. SKIN: Warm to touch. No signs of rash. NEUROLOGIC: Alert and answering questions appropriately. PERIPHERAL IV: Looks okay. Medications: Inpatient Meds: Medications reviewed. Labs: Lab Laboratory Tests Test 06/30/20 11:39 06/30/20 16:08 06/30/20 20:52 07/01/20 05:55 Glucose (Fingerstick) 269 mg/dL (70-99) 228 mg/dL (70-99) 172 mg/dL (70-99) White Blood Count 7.8 x10^3/uL (4.0-11.0) Red Blood Count 3.46 x10^6/uL (3.50-5.40) Hemoglobin 9.2 g/dL (12.0-15.5) Hematocrit 29.3 % (36.0-47.0) Mean Corpuscular Volume 85 fL (79-100) Mean Corpuscular Hemoglobin 27 pg (25-35) Mean Corpuscular Hemoglobin Concent 31 g/dL (31-37) Red Cell Distribution Width 18.8 % (11.5-14.5) Platelet Count 236 x10^3/uL (140-400) Neutrophils (%) (Auto) 74 % (31-73) Lymphocytes (%) (Auto) 12 % (24-48) Monocytes (%) (Auto) 9 % (0-9) Eosinophils (%) (Auto) 5 % (0-3) Basophils (%) (Auto) 1 % (0-3) Neutrophils # (Auto) 5.7 x10^3/uL (1.8-7.7) Lymphocytes # (Auto) 0.9 x10^3/uL (1.0-4.8) Monocytes # (Auto) 0.7 x10^3/uL (0.0-1.1) Eosinophils # (Auto) 0.4 x10^3/uL (0.0-0.7) Basophils # (Auto) 0.1 x10^3/uL (0.0-0.2) Sodium Level 143 mmol/L (136-145) Potassium Level 4.3 mmol/L (3.5-5.1) Chloride Level 103 mmol/L (98-107) Carbon Dioxide Level 40 mmol/L (21-32) Anion Gap (6-14) Blood Urea Nitrogen 24 mg/dL (7-20) Creatinine 1.3 mg/dL (0.6-1.0) Estimated GFR (Cockcroft-Gault) 39.6 Glucose Level 185 mg/dL (70-99) Calcium Level 8.4 mg/dL (8.5-10.1) Magnesium Level 2.2 mg/dL (1.8-2.4) Test 07/01/20 07:28 Glucose (Fingerstick) 168 mg/dL (70-99) Objective: Assessment: 1. Recurrent cellulitis, right lower extremity. 2. Mild bibasilar infiltrates. 3. Type 2 diabetes mellitus with peripheral neuropathy. 4. Chronic kidney disease. 5. Peripheral arterial disease. 6. Obesity. 7. Cat exposure. 8. History of methicillin-resistant Staphylococcus aureus and extended spectrum beta-lactamase. 9. Acute on chronic diastolic congestive heart failure. 10. Chronic respiratory failure on home O2 at 2 L Plan: Plan of Care Continue Merrem and Zyvox Encouraged leg elevation Local wound care Monitor labs and cultures Discussed with at bedside Discussed with nursing LADARIUS VENTURA MD Jul 01, 2020 09:01
[2020-07-01] MEDS: INSULIN LISPRO 300 UNITS/3 ML VIAL. SQ SCH ×3 (09:16→17:31)
--- NOTE | 2020-07-01 10:18 | PDOC ---
PROGRESS NOTES Date of Service DATE: 07/01/20 TIME: 10:15 Subjective Subjective she had a better diuresis yesterday. RLE less swollen but still edematous and weeping and redness. lab reviewed. blood sugar better. Objective Objective Vital Signs Date Time Temp Pulse Resp B/P (MAP) Pulse Ox O2 Delivery O2 Flow Rate FiO2 07/01/20 08:45 70 143/57 07/01/20 08:00 Nasal Cannula 3.0 07/01/20 07:00 98.1 18 90 98.1 Intake and Output 07/01/20 07:00 Intake Total 1770 ml Output Total 3450 ml Balance -1680 ml Intake Oral 1420 ml IV Total 350 ml Output Urine Total 3450 ml Physical Exam Abdomen: Soft, Other (obese) Heart: Regular rate, Normal S1, Normal S2 Extremities: Other (2 plus edema right calf and thigh and redness calf and weeping. left BKA with prosthesis) General: Alert HEENT: Atraumatic Lungs: Other (decreased breath sounds) Neuro: Normal speech Psych/Mental Status: Mental status NL Skin: Other (redness and swelling and weeping right calf and distal thigh) Assessment Assessment Problems1. Cellulitis of the right leg. 2. Acute on chronic diastolic congestive heart failure manifested by crackles in the lungs, hypoxia and increasing peripheral edema in the right lower extremity and elevated proBNP. 3. Acute on chronic hypoxic and hypercapnic respiratory failure. She notes increasing dyspnea on exertion with just short distances. 4. Diabetes mellitus type 2, on insulin with peripheral neuropathy and nephropathy. 5. Chronic kidney disease stage 3. 6. Chronic venous insufficiency of the lower extremity. 7. Anemia of chronic disease. 8. Moderate protein calorie malnutrition. 9. Hypertension. 10. Hyperlipidemia. 11. Morbid obesity. 12. Obstructive sleep apnea. 13. Nonobstructive coronary artery disease. 14. Left below-knee amputation with amputations of the second and third toes of the right foot. 15. Mild peripheral arterial disease. Medical Problems: (1) Cellulitis Status: Acute (2) CHF exacerbation Status: Acute Plan Plan of Care continue zyvox and meropenem continue iv lasix and dose metolazone again today PT and OT continue insulin continue sq heparin for dvt prophylaxis lab tomorrow Comment Review of Relevant I have reviewed the following items helio (where applicable) has been applied. Labs Laboratory Tests Test 06/29/20 11:37 4/24/21 12:24 06/29/20 16:24 06/29/20 16:40 White Blood Count 7.9 x10^3/uL (4.0-11.0) Red Blood Count 3.65 x10^6/uL (3.50-5.40) Hemoglobin 9.7 g/dL (12.0-15.5) Hematocrit 30.8 % (36.0-47.0) Mean Corpuscular Volume 84 fL (79-100) Mean Corpuscular Hemoglobin 27 pg (25-35) Mean Corpuscular Hemoglobin Concent 31 g/dL (31-37) Red Cell Distribution Width 19.0 % (11.5-14.5) Platelet Count 263 x10^3/uL (140-400) Neutrophils (%) (Auto) 76 % (31-73) Lymphocytes (%) (Auto) 11 % (24-48) Monocytes (%) (Auto) 9 % (0-9) Eosinophils (%) (Auto) 3 % (0-3) Basophils (%) (Auto) 1 % (0-3) Neutrophils # (Auto) 6.0 x10^3/uL (1.8-7.7) Lymphocytes # (Auto) 0.9 x10^3/uL (1.0-4.8) Monocytes # (Auto) 0.7 x10^3/uL (0.0-1.1) Eosinophils # (Auto) 0.3 x10^3/uL (0.0-0.7) Basophils # (Auto) 0.1 x10^3/uL (0.0-0.2) Sodium Level 142 mmol/L (136-145) Potassium Level 4.1 mmol/L (3.5-5.1) Chloride Level 101 mmol/L (98-107) Carbon Dioxide Level 33 mmol/L (21-32) Anion Gap 8 (6-14) Blood Urea Nitrogen 28 mg/dL (7-20) Creatinine 1.4 mg/dL (0.6-1.0) Estimated GFR (Cockcroft-Gault) 36.4 BUN/Creatinine Ratio 20 (6-20) Glucose Level 275 mg/dL (70-99) Lactic Acid Level 2.2 mmol/L (0.4-2.0) 1.1 mmol/L (0.4-2.0) Calcium Level 8.7 mg/dL (8.5-10.1) Total Bilirubin 0.8 mg/dL (0.2-1.0) Aspartate Amino Transf (AST/SGOT) 12 U/L (15-37) Alanine Aminotransferase (ALT/SGPT) 19 U/L (14-59) Alkaline Phosphatase 107 U/L (46-116) Troponin I Quantitative < 0.017 ng/mL (0.000-0.055) C-Reactive Protein, Quantitative 19.8 mg/L (0-3.3) AE-Ppg-X-Type Natriuretic Peptide 52226 pg/mL (0-449) Total Protein 7.6 g/dL (6.4-8.2) Albumin 3.1 g/dL (3.4-5.0) Albumin/Globulin Ratio 0.7 (1.0-1.7) O2 Saturation 97 % (92-99) Arterial Blood pH 7.39 (7.35-7.45) Arterial Blood pCO2 at Patient Temp 53 mmHg (35-46) Arterial Blood pO2 at Patient Temp 101 mmHg (65-108) Arterial Blood HCO3 31 mmol/L (21-28) Arterial Blood Base Excess 6 mmol/L (-3-3) Oxyhemoglobin 95.9 % Methemoglobin 0.4 % (0.0-1.9) Carbon Monoxide, Quantitative 0.3 % (0.0-1.9) FiO2 2l nc Glucose (Fingerstick) 247 mg/dL (70-99) Test 06/29/20 20:57 06/30/20 06:30 06/30/20 08:26 06/30/20 11:39 Glucose (Fingerstick) 197 mg/dL (70-99) 217 mg/dL (70-99) 269 mg/dL (70-99) White Blood Count 9.8 x10^3/uL (4.0-11.0) Red Blood Count 3.62 x10^6/uL (3.50-5.40) Hemoglobin 9.7 g/dL (12.0-15.5) Hematocrit 31.0 % (36.0-47.0) Mean Corpuscular Volume 86 fL (79-100) Mean Corpuscular Hemoglobin 27 pg (25-35) Mean Corpuscular Hemoglobin Concent 31 g/dL (31-37) Red Cell Distribution Width 19.3 % (11.5-14.5) Platelet Count 268 x10^3/uL (140-400) Neutrophils (%) (Auto) 77 % (31-73) Lymphocytes (%) (Auto) 10 % (24-48) Monocytes (%) (Auto) 8 % (0-9) Eosinophils (%) (Auto) 4 % (0-3) Basophils (%) (Auto) 1 % (0-3) Neutrophils # (Auto) 7.6 x10^3/uL (1.8-7.7) Lymphocytes # (Auto) 1.0 x10^3/uL (1.0-4.8) Monocytes # (Auto) 0.8 x10^3/uL (0.0-1.1) Eosinophils # (Auto) 0.4 x10^3/uL (0.0-0.7) Basophils # (Auto) 0.1 x10^3/uL (0.0-0.2) Sodium Level 141 mmol/L (136-145) Potassium Level 3.8 mmol/L (3.5-5.1) Chloride Level 102 mmol/L (98-107) Carbon Dioxide Level 36 mmol/L (21-32) Anion Gap 3 (6-14) Blood Urea Nitrogen 26 mg/dL (7-20) Creatinine 1.4 mg/dL (0.6-1.0) Estimated GFR (Cockcroft-Gault) 36.4 Glucose Level 213 mg/dL (70-99) Calcium Level 8.5 mg/dL (8.5-10.1) Magnesium Level 2.2 mg/dL (1.8-2.4) Test 06/30/20 16:08 06/30/20 20:52 07/01/20 05:55 07/01/20 07:28 Glucose (Fingerstick) 228 mg/dL (70-99) 172 mg/dL (70-99) 168 mg/dL (70-99) White Blood Count 7.8 x10^3/uL (4.0-11.0) Red Blood Count 3.46 x10^6/uL (3.50-5.40) Hemoglobin 9.2 g/dL (12.0-15.5) Hematocrit 29.3 % (36.0-47.0) Mean Corpuscular Volume 85 fL (79-100) Mean Corpuscular Hemoglobin 27 pg (25-35) Mean Corpuscular Hemoglobin Concent 31 g/dL (31-37) Red Cell Distribution Width 18.8 % (11.5-14.5) Platelet Count 236 x10^3/uL (140-400) Neutrophils (%) (Auto) 74 % (31-73) Lymphocytes (%) (Auto) 12 % (24-48) Monocytes (%) (Auto) 9 % (0-9) Eosinophils (%) (Auto) 5 % (0-3) Basophils (%) (Auto) 1 % (0-3) Neutrophils # (Auto) 5.7 x10^3/uL (1.8-7.7) Lymphocytes # (Auto) 0.9 x10^3/uL (1.0-4.8) Monocytes # (Auto) 0.7 x10^3/uL (0.0-1.1) Eosinophils # (Auto) 0.4 x10^3/uL (0.0-0.7) Basophils # (Auto) 0.1 x10^3/uL (0.0-0.2) Sodium Level 143 mmol/L (136-145) Potassium Level 4.3 mmol/L (3.5-5.1) Chloride Level 103 mmol/L (98-107) Carbon Dioxide Level 40 mmol/L (21-32) Anion Gap (6-14) Blood Urea Nitrogen 24 mg/dL (7-20) Creatinine 1.3 mg/dL (0.6-1.0) Estimated GFR (Cockcroft-Gault) 39.6 Glucose Level 185 mg/dL (70-99) Calcium Level 8.4 mg/dL (8.5-10.1) Magnesium Level 2.2 mg/dL (1.8-2.4) Laboratory Tests Test 06/30/20 11:39 06/30/20 16:08 06/30/20 20:52 07/01/20 05:55 Glucose (Fingerstick) 269 mg/dL (70-99) 228 mg/dL (70-99) 172 mg/dL (70-99) White Blood Count 7.8 x10^3/uL (4.0-11.0) Red Blood Count 3.46 x10^6/uL (3.50-5.40) Hemoglobin 9.2 g/dL (12.0-15.5) Hematocrit 29.3 % (36.0-47.0) Mean Corpuscular Volume 85 fL (79-100) Mean Corpuscular Hemoglobin 27 pg (25-35) Mean Corpuscular Hemoglobin Concent 31 g/dL (31-37) Red Cell Distribution Width 18.8 % (11.5-14.5) Platelet Count 236 x10^3/uL (140-400) Neutrophils (%) (Auto) 74 % (31-73) Lymphocytes (%) (Auto) 12 % (24-48) Monocytes (%) (Auto) 9 % (0-9) Eosinophils (%) (Auto) 5 % (0-3) Basophils (%) (Auto) 1 % (0-3) Neutrophils # (Auto) 5.7 x10^3/uL (1.8-7.7) Lymphocytes # (Auto) 0.9 x10^3/uL (1.0-4.8) Monocytes # (Auto) 0.7 x10^3/uL (0.0-1.1) Eosinophils # (Auto) 0.4 x10^3/uL (0.0-0.7) Basophils # (Auto) 0.1 x10^3/uL (0.0-0.2) Sodium Level 143 mmol/L (136-145) Potassium Level 4.3 mmol/L (3.5-5.1) Chloride Level 103 mmol/L (98-107) Carbon Dioxide Level 40 mmol/L (21-32) Anion Gap (6-14) Blood Urea Nitrogen 24 mg/dL (7-20) Creatinine 1.3 mg/dL (0.6-1.0) Estimated GFR (Cockcroft-Gault) 39.6 Glucose Level 185 mg/dL (70-99) Calcium Level 8.4 mg/dL (8.5-10.1) Magnesium Level 2.2 mg/dL (1.8-2.4) Test 07/01/20 07:28 Glucose (Fingerstick) 168 mg/dL (70-99) Microbiology 06/29/20 Blood Culture - Preliminary, Resulted NO GROWTH AFTER 1 DAY Medications Current Medications Vancomycin HCl (Vanco Per Pharmacy) 1 each PRN DAILY PRN MC SEE COMMENTS; Start 06/29/20 at 12:45; Stop 06/29/20 at 15:36; Status DC Vancomycin HCl 2 gm/Sodium Chloride 500 ml @ 250 mls/hr 1X ONCE IV Last administered on 06/29/20at 13:48; Start 06/29/20 at 13:00; Stop 06/29/20 at 14:59; Status DC Sodium Chloride 1,000 ml @ 250 mls/hr 1X ONCE IV Last administered on 06/29/20at 13:47; Start 06/29/20 at 13:30; Stop 06/29/20 at 15:36; Status DC Atorvastatin Calcium (Lipitor) 40 mg QHS PO Last administered on 06/30/20at 23:03; Start 06/29/20 at 21:00 Furosemide (Lasix) 40 mg [id number] IVP Last administered on 07/01/20at 08:45; Start 06/29/20 at 16:00 Acetaminophen (Tylenol) 650 mg PRN Q6HRS PRN PO MILD PAIN / TEMP > 100.3'F; Start 06/29/20 at 15:30 Allopurinol (Zyloprim) 100 mg DAILY PO Last administered on 07/01/20at 08:45; Start 06/30/20 at 09:00 Aspirin (Aspirin Chewable) 81 mg DAILYWBKFT PO Last administered on 07/01/20at 08:45; Start 06/30/20 at 08:00 Ferrous Sulfate (Feosol) 325 mg QODAY PO ; Start 07/01/20 at 09:00 Insulin Glargine (Lantus Syringe) 14 unit QHS SQ Last administered on 06/29/20at 21:42; Start 06/29/20 at 21:00; Stop 06/30/20 at 11:12; Status DC Insulin Human Lispro (HumaLOG) 6 units TIDAC SQ Last administered on 06/30/20at 08:43; Start 06/29/20 at 16:30; Stop 06/30/20 at 11:12; Status DC Levothyroxine Sodium (Synthroid) 150 mcg DAILY06 PO Last administered on 07/01/20at 06:10; Start 06/30/20 at 06:00 Metoprolol Succinate (Toprol Xl) 50 mg DAILY PO Last administered on 07/01/20 08:43; Start 06/30/20 at 09:00 Potassium Chloride (Klor-Con) 20 meq DAILYWBKFT PO Last administered on 06/30/20 08:24; Start 06/30/20 at 08:00; Stop 06/30/20 at 11:12; Status DC Senna/Docusate Sodium (Senna Plus) 2 tab QHS PO Last administered on 06/30/20 23:03; Start 06/29/20 at 21:00 Amlodipine Besylate (Norvasc) 5 mg DAILY PO Last administered on 07/01/20 08:45; Start 06/30/20 at 09:00 Linezolid/Dextrose 300 ml @ 300 mls/hr Q12HR IV Last administered on 07/01/20 09:12; Start 06/29/20 at 21:00 Meropenem 500 mg/ Sodium Chloride 50 ml @ 100 mls/hr Q8HRS IV Last administered on 07/01/20 06:11; Start 06/29/20 at 16:00 Heparin Sodium (Porcine) (Heparin Sodium) 5,000 unit Q12HR SQ Last administered on 07/01/20 08:54; Start 06/29/20 at 21:00 Lorazepam (Ativan) 0.25 mg 1X ONCE PO Last administered on 06/30/20 00:16; Start 06/30/20 at 00:30; Stop 06/30/20 at 00:31; Status DC Paroxetine HCl (Paxil) 10 mg DAILY PO Last administered on 07/01/20 08:43; Start 06/30/20 at 00:30 Lactobacillus Rhamnosus (Culturelle) 1 cap BID PO Last administered on 07/01/20 08:43; Start 06/30/20 at 21:00 Insulin Glargine (Lantus Syringe) 18 unit QHS SQ Last administered on 06/30/20 23:30; Start 06/30/20 at 21:00 Insulin Human Lispro (HumaLOG) 8 units TIDAC SQ Last administered on 07/01/20 09:16; Start 06/30/20 at 11:30 Potassium Chloride (Klor-Con) 20 meq BIDWMEALS PO Last administered on 07/01/20at 08:45; Start 06/30/20 at 12:00 Metolazone (Zaroxolyn) 5 mg 1X ONCE PO Last administered on 06/30/20at 12:28; Start 06/30/20 at 11:15; Stop 06/30/20 at 11:23; Status DC Active Scripts Active Furosemide 40 Mg Tablet 40 Mg PO BID Amlodipine Besylate 5 Mg Tablet 5 Mg PO DAILY Atorvastatin Calcium 40 Mg Tablet 40 Mg PO QHS Admelog (Insulin Lispro) 100 Unit/1 Ml Vial 6 Units SQ TIDAC hold if blood sugar less than 90 before a meal Lantus (Insulin Glargine,Hum.rec.anlog) 100 Unit/1 Ml Vial 14 Unit SQ QHS Klor-Con M20 (Potassium Chloride) 20 Meq Tab.er.prt 20 Meq PO DAILY Nyamyc (Nystatin) 15 Gm Powder 1 Renee TP BID Stool Soft-Stimulant Lax Tab (Sennosides/Docusate Sodium) 1 Each Tablet 2 Tab PO DAILY Metoprolol Tartrate 25 Mg Tablet 25 Mg PO BID Feosol (Ferrous Sulfate) 325 Mg Tablet 325 Mg PO QODAY Synthroid (Levothyroxine Sodium) 150 Mcg Tablet 150 Mcg PO DAILY06 Allopurinol 100 Mg Tablet 100 Mg PO DAILY Paroxetine Hcl 20 Mg Tablet 20 Mg PO DAILY Reported Aspirin 81 Mg Tab.chew 81 Mg PO HS Tylenol (Acetaminophen) 325 Mg Tablet 650 Mg PO PRN Q4HRS Vitals/I & O Vital Sign - Last 24 Hours 06/30/20 06/30/20 06/30/20 06/30/20 10:20 14:54 19:35 20:00 Temp 97.7 97.9 97.9 97.7 97.9 97.9 Pulse 77 68 73 Resp 20 20 20 B/P (MAP) 133/57 (82) 121/52 (75) 130/58 (82) Pulse Ox 98 98 94 O2 Delivery Nasal Cannula Nasal Cannula Nasal Cannula Nasal Cannula O2 Flow Rate 3.0 3.0 3.0 3.0 06/30/20 07/01/20 07/01/20 07/01/20 23:05 00:30 02:01 03:10 Temp 97.9 98.4 97.9 98.4 Pulse 72 67 Resp 20 20 B/P (MAP) 108/63 (78) 118/64 (82) Pulse Ox 95 96 98 O2 Delivery Nasal Cannula BiPAP/CPAP BiPAP/CPAP Nasal Cannula O2 Flow Rate 3.0 3.0 07/01/20 07/01/20 07/01/20 07/01/20 04:20 07:00 08:00 08:43 Temp 98.1 98.1 Pulse 70 70 Resp 18 B/P (MAP) 143/57 (85) 143/57 Pulse Ox 90 O2 Delivery BiPAP/CPAP Nasal Cannula Nasal Cannula O2 Flow Rate 3.0 3.0 07/01/20 08:45 Pulse 70 B/P (MAP) 143/57 Intake and Output 06/30/20 06/30/20 07/01/20 15:00 23:00 07:00 Intake Total 680 ml 240 ml 850 ml Output Total 1600 ml 1850 ml Balance 680 ml -1360 ml -1000 ml Justifications for Admission Other Justification TERE ALLISON MD Jul 01, 2020 10:18
[2020-07-01] MEDS ORDERED: metOLazone 2.5 MG TABLET PO ONE (10:30)
--- NOTE | 2020-07-01 10:31 | PDOC ---
PULMONARY PROGRESS NOTES DATE: 07/01/20 TIME: 10:27 Subjective pt. is up in chair pt. remains on 3 liters NC wore BIPAP 6 hours last night no overnight concerns, no SOB or increased cough Vitals Vital Signs Date Time Temp Pulse Resp B/P (MAP) Pulse Ox O2 Delivery O2 Flow Rate FiO2 07/01/20 08:45 70 143/57 07/01/20 08:00 Nasal Cannula 3.0 07/01/20 07:00 98.1 18 90 98.1 ROS: No Nausea, No Chest Pain, No Abdominal Pain, No Increase Cough General: Alert Lungs: Crackles Cardiovascular: S1, S2 Abdomen: Soft, Non-tender, Other (obese ) Extremities: Other Skin: Other (right LE erythema and left BKA) Labs Laboratory Tests Test 06/29/20 11:37 06/29/20 12:24 06/29/20 16:24 06/29/20 16:40 White Blood Count 7.9 x10^3/uL (4.0-11.0) Red Blood Count 3.65 x10^6/uL (3.50-5.40) Hemoglobin 9.7 g/dL (12.0-15.5) Hematocrit 30.8 % (36.0-47.0) Mean Corpuscular Volume 84 fL (79-100) Mean Corpuscular Hemoglobin 27 pg (25-35) Mean Corpuscular Hemoglobin Concent 31 g/dL (31-37) Red Cell Distribution Width 19.0 % (11.5-14.5) Platelet Count 263 x10^3/uL (140-400) Neutrophils (%) (Auto) 76 % (31-73) Lymphocytes (%) (Auto) 11 % (24-48) Monocytes (%) (Auto) 9 % (0-9) Eosinophils (%) (Auto) 3 % (0-3) Basophils (%) (Auto) 1 % (0-3) Neutrophils # (Auto) 6.0 x10^3/uL (1.8-7.7) Lymphocytes # (Auto) 0.9 x10^3/uL (1.0-4.8) Monocytes # (Auto) 0.7 x10^3/uL (0.0-1.1) Eosinophils # (Auto) 0.3 x10^3/uL (0.0-0.7) Basophils # (Auto) 0.1 x10^3/uL (0.0-0.2) Sodium Level 142 mmol/L (136-145) Potassium Level 4.1 mmol/L (3.5-5.1) Chloride Level 101 mmol/L (98-107) Carbon Dioxide Level 33 mmol/L (21-32) Anion Gap 8 (6-14) Blood Urea Nitrogen 28 mg/dL (7-20) Creatinine 1.4 mg/dL (0.6-1.0) Estimated GFR (Cockcroft-Gault) 36.4 BUN/Creatinine Ratio 20 (6-20) Glucose Level 275 mg/dL (70-99) Lactic Acid Level 2.2 mmol/L (0.4-2.0) 1.1 mmol/L (0.4-2.0) Calcium Level 8.7 mg/dL (8.5-10.1) Total Bilirubin 0.8 mg/dL (0.2-1.0) Aspartate Amino Transf (AST/SGOT) 12 U/L (15-37) Alanine Aminotransferase (ALT/SGPT) 19 U/L (14-59) Alkaline Phosphatase 107 U/L (46-116) Troponin I Quantitative < 0.017 ng/mL (0.000-0.055) C-Reactive Protein, Quantitative 19.8 mg/L (0-3.3) UD-Vlt-K-Type Natriuretic Peptide 58323 pg/mL (0-449) Total Protein 7.6 g/dL (6.4-8.2) Albumin 3.1 g/dL (3.4-5.0) Albumin/Globulin Ratio 0.7 (1.0-1.7) O2 Saturation 97 % (92-99) Arterial Blood pH 7.39 (7.35-7.45) Arterial Blood pCO2 at Patient Temp 53 mmHg (35-46) Arterial Blood pO2 at Patient Temp 101 mmHg (65-108) Arterial Blood HCO3 31 mmol/L (21-28) Arterial Blood Base Excess 6 mmol/L (-3-3) Oxyhemoglobin 95.9 % Methemoglobin 0.4 % (0.0-1.9) Carbon Monoxide, Quantitative 0.3 % (0.0-1.9) FiO2 2l nc Glucose (Fingerstick) 247 mg/dL (70-99) Test 06/29/20 20:57 06/30/20 06:30 06/30/20 08:26 06/30/20 11:39 Glucose (Fingerstick) 197 mg/dL (70-99) 217 mg/dL (70-99) 269 mg/dL (70-99) White Blood Count 9.8 x10^3/uL (4.0-11.0) Red Blood Count 3.62 x10^6/uL (3.50-5.40) Hemoglobin 9.7 g/dL (12.0-15.5) Hematocrit 31.0 % (36.0-47.0) Mean Corpuscular Volume 86 fL (79-100) Mean Corpuscular Hemoglobin 27 pg (25-35) Mean Corpuscular Hemoglobin Concent 31 g/dL (31-37) Red Cell Distribution Width 19.3 % (11.5-14.5) Platelet Count 268 x10^3/uL (140-400) Neutrophils (%) (Auto) 77 % (31-73) Lymphocytes (%) (Auto) 10 % (24-48) Monocytes (%) (Auto) 8 % (0-9) Eosinophils (%) (Auto) 4 % (0-3) Basophils (%) (Auto) 1 % (0-3) Neutrophils # (Auto) 7.6 x10^3/uL (1.8-7.7) Lymphocytes # (Auto) 1.0 x10^3/uL (1.0-4.8) Monocytes # (Auto) 0.8 x10^3/uL (0.0-1.1) Eosinophils # (Auto) 0.4 x10^3/uL (0.0-0.7) Basophils # (Auto) 0.1 x10^3/uL (0.0-0.2) Sodium Level 141 mmol/L (136-145) Potassium Level 3.8 mmol/L (3.5-5.1) Chloride Level 102 mmol/L (98-107) Carbon Dioxide Level 36 mmol/L (21-32) Anion Gap 3 (6-14) Blood Urea Nitrogen 26 mg/dL (7-20) Creatinine 1.4 mg/dL (0.6-1.0) Estimated GFR (Cockcroft-Gault) 36.4 Glucose Level 213 mg/dL (70-99) Calcium Level 8.5 mg/dL (8.5-10.1) Magnesium Level 2.2 mg/dL (1.8-2.4) Test 06/30/20 16:08 06/30/20 20:52 07/01/20 05:55 07/01/20 07:28 Glucose (Fingerstick) 228 mg/dL (70-99) 172 mg/dL (70-99) 168 mg/dL (70-99) White Blood Count 7.8 x10^3/uL (4.0-11.0) Red Blood Count 3.46 x10^6/uL (3.50-5.40) Hemoglobin 9.2 g/dL (12.0-15.5) Hematocrit 29.3 % (36.0-47.0) Mean Corpuscular Volume 85 fL (79-100) Mean Corpuscular Hemoglobin 27 pg (25-35) Mean Corpuscular Hemoglobin Concent 31 g/dL (31-37) Red Cell Distribution Width 18.8 % (11.5-14.5) Platelet Count 236 x10^3/uL (140-400) Neutrophils (%) (Auto) 74 % (31-73) Lymphocytes (%) (Auto) 12 % (24-48) Monocytes (%) (Auto) 9 % (0-9) Eosinophils (%) (Auto) 5 % (0-3) Basophils (%) (Auto) 1 % (0-3) Neutrophils # (Auto) 5.7 x10^3/uL (1.8-7.7) Lymphocytes # (Auto) 0.9 x10^3/uL (1.0-4.8) Monocytes # (Auto) 0.7 x10^3/uL (0.0-1.1) Eosinophils # (Auto) 0.4 x10^3/uL (0.0-0.7) Basophils # (Auto) 0.1 x10^3/uL (0.0-0.2) Sodium Level 143 mmol/L (136-145) Potassium Level 4.3 mmol/L (3.5-5.1) Chloride Level 103 mmol/L (98-107) Carbon Dioxide Level 40 mmol/L (21-32) Anion Gap (6-14) Blood Urea Nitrogen 24 mg/dL (7-20) Creatinine 1.3 mg/dL (0.6-1.0) Estimated GFR (Cockcroft-Gault) 39.6 Glucose Level 185 mg/dL (70-99) Calcium Level 8.4 mg/dL (8.5-10.1) Magnesium Level 2.2 mg/dL (1.8-2.4) Laboratory Tests Test 06/30/20 11:39 06/30/20 16:08 06/30/20 20:52 07/01/20 05:55 Glucose (Fingerstick) 269 mg/dL (70-99) 228 mg/dL (70-99) 172 mg/dL (70-99) White Blood Count 7.8 x10^3/uL (4.0-11.0) Red Blood Count 3.46 x10^6/uL (3.50-5.40) Hemoglobin 9.2 g/dL (12.0-15.5) Hematocrit 29.3 % (36.0-47.0) Mean Corpuscular Volume 85 fL (79-100) Mean Corpuscular Hemoglobin 27 pg (25-35) Mean Corpuscular Hemoglobin Concent 31 g/dL (31-37) Red Cell Distribution Width 18.8 % (11.5-14.5) Platelet Count 236 x10^3/uL (140-400) Neutrophils (%) (Auto) 74 % (31-73) Lymphocytes (%) (Auto) 12 % (24-48) Monocytes (%) (Auto) 9 % (0-9) Eosinophils (%) (Auto) 5 % (0-3) Basophils (%) (Auto) 1 % (0-3) Neutrophils # (Auto) 5.7 x10^3/uL (1.8-7.7) Lymphocytes # (Auto) 0.9 x10^3/uL (1.0-4.8) Monocytes # (Auto) 0.7 x10^3/uL (0.0-1.1) Eosinophils # (Auto) 0.4 x10^3/uL (0.0-0.7) Basophils # (Auto) 0.1 x10^3/uL (0.0-0.2) Sodium Level 143 mmol/L (136-145) Potassium Level 4.3 mmol/L (3.5-5.1) Chloride Level 103 mmol/L (98-107) Carbon Dioxide Level 40 mmol/L (21-32) Anion Gap (6-14) Blood Urea Nitrogen 24 mg/dL (7-20) Creatinine 1.3 mg/dL (0.6-1.0) Estimated GFR (Cockcroft-Gault) 39.6 Glucose Level 185 mg/dL (70-99) Calcium Level 8.4 mg/dL (8.5-10.1) Magnesium Level 2.2 mg/dL (1.8-2.4) Test 07/01/20 07:28 Glucose (Fingerstick) 168 mg/dL (70-99) Medications Active Scripts Medications Dose Route/Sig Max Daily Dose Days Date Category Dose Instructions Furosemide 40 Mg Tablet 40 Mg PO BID 06/12/20 Rx Amlodipine Besylate 5 Mg Tablet 5 Mg PO DAILY 06/12/20 Rx Atorvastatin Calcium 40 Mg Tablet 40 Mg PO QHS 06/12/20 Rx Admelog (Insulin Lispro) 100 Unit/1 Ml Vial 6 Units SQ TIDAC 06/04/20 Rx hold if blood sugar less than 90 before a meal Lantus (Insulin Glargine,Hum.rec.anlog) 100 Unit/1 Ml Vial 14 Unit SQ QHS 06/04/20 Rx Klor-Con M20 (Potassium Chloride) 20 Meq Tab.er.prt 20 Meq PO DAILY 06/04/20 Rx Nyamyc (Nystatin) 15 Gm Powder 1 Renee TP BID 05/12/20 Rx Stool Soft-Stimulant Lax Tab (Sennosides/Docusate Sodium) 1 Each Tablet 2 Tab PO DAILY 05/12/20 Rx Metoprolol Tartrate 25 Mg Tablet 25 Mg PO BID 05/12/20 Rx Feosol (Ferrous Sulfate) 325 Mg Tablet 325 Mg PO QODAY 05/12/20 Rx Aspirin 81 Mg Tab.chew 81 Mg PO HS 05/03/20 Reported Synthroid (Levothyroxine Sodium) 150 Mcg Tablet 150 Mcg PO DAILY06 05/21/19 Rx Allopurinol 100 Mg Tablet 100 Mg PO DAILY 05/21/19 Rx Paroxetine Hcl 20 Mg Tablet 20 Mg PO DAILY 05/21/19 Rx Tylenol (Acetaminophen) 325 Mg Tablet 650 Mg PO PRN Q4HRS 05/19/13 Reported Comments CXR- mild CHF Impression . ASSESSMENT: 1. Acute on chronic respiratory failure secondary to acute diastolic congestive heart failure, inadequately treated obstructive sleep apnea/hypopnea syndrome and obesity hypoventilation syndrome.-- improved 2. Abnormal chest x-ray. 3. Acute diastolic congestive heart failure. 4. Obstructive sleep apnea/hypopnea syndrome and obesity hypoventilation syndrome. 5. Chronic kidney disease. 6. Diabetes mellitus. 7. Hypertension. 8. Right lower extremity cellulitis. 9. Coronary artery disease. 10. Peripheral arterial disease, status post left below-knee amputation. 11. Recent right groin hematoma. 12. History of nonsustained ventricular tachycardia. Plan . PLAN Titrate FIO2 to keep O2 saturation 90%.currently on 3 liters NC Continue CPAP at night and with napping Continue lasix and cardiology recs -- EF 55% in 05/2020 and PAP 47 Follow ID recs for ABX Monitor renal function DM per IM PT/OT DVT/GI PPX BILL BHANDARI MD Jul 01, 2020 10:31
[2020-07-01 11:00] VITALS: BP 136/53
--- NOTE | 2020-07-01 12:20 | PDOC ---
FARHANA HOFFMAN SMOKING PIPE REPAIRER 07/01/20 1220: CARDIO Progress Notes Date and Time Date of Service 07/01/20 Time of Evaluation 1210 Subjective Subjective: No Chest Pain, No Palpitations, Other (RLE edema better ) Vitals Vitals Vital Signs Date Time Temp Pulse Resp B/P (MAP) Pulse Ox O2 Delivery O2 Flow Rate FiO2 07/01/20 11:00 98.2 63 18 136/53 (80) 97 Nasal Cannula 3.0 98.2 Weight Weight [ ] Input and Output Intake and Output Intake and Output 07/01/20 07:00 Intake Total 1770 ml Output Total 3450 ml Balance -1680 ml Intake Oral 1420 ml IV Total 350 ml Output Urine Total 3450 ml Laboratory Labs Laboratory Tests Test 06/30/20 16:08 06/30/20 20:52 07/01/20 05:55 07/01/20 07:28 Glucose (Fingerstick) 228 mg/dL (70-99) 172 mg/dL (70-99) 168 mg/dL (70-99) White Blood Count 7.8 x10^3/uL (4.0-11.0) Red Blood Count 3.46 x10^6/uL (3.50-5.40) Hemoglobin 9.2 g/dL (12.0-15.5) Hematocrit 29.3 % (36.0-47.0) Mean Corpuscular Volume 85 fL (79-100) Mean Corpuscular Hemoglobin 27 pg (25-35) Mean Corpuscular Hemoglobin Concent 31 g/dL (31-37) Red Cell Distribution Width 18.8 % (11.5-14.5) Platelet Count 236 x10^3/uL (140-400) Neutrophils (%) (Auto) 74 % (31-73) Lymphocytes (%) (Auto) 12 % (24-48) Monocytes (%) (Auto) 9 % (0-9) Eosinophils (%) (Auto) 5 % (0-3) Basophils (%) (Auto) 1 % (0-3) Neutrophils # (Auto) 5.7 x10^3/uL (1.8-7.7) Lymphocytes # (Auto) 0.9 x10^3/uL (1.0-4.8) Monocytes # (Auto) 0.7 x10^3/uL (0.0-1.1) Eosinophils # (Auto) 0.4 x10^3/uL (0.0-0.7) Basophils # (Auto) 0.1 x10^3/uL (0.0-0.2) Sodium Level 143 mmol/L (136-145) Potassium Level 4.3 mmol/L (3.5-5.1) Chloride Level 103 mmol/L (98-107) Carbon Dioxide Level 40 mmol/L (21-32) Anion Gap (6-14) Blood Urea Nitrogen 24 mg/dL (7-20) Creatinine 1.3 mg/dL (0.6-1.0) Estimated GFR (Cockcroft-Gault) 39.6 Glucose Level 185 mg/dL (70-99) Calcium Level 8.4 mg/dL (8.5-10.1) Magnesium Level 2.2 mg/dL (1.8-2.4) Test 07/01/20 11:21 Glucose (Fingerstick) 193 mg/dL (70-99) Microbiology Micro Microbiology 06/29/20 Blood Culture - Preliminary, Resulted NO GROWTH AFTER 2 DAYS Physical Exam HEENT: Neck Supple W Full Motion Chest: Symmetric LUNGS: Other (diminished bases) Heart: RRR Abdomen: Soft N/T Extremities: Other (right LE erythema, edema and left BKA) Neurology: alert, oriented, follow commands Assessment Assessment 1. Acute on chronic respiratory failure; multifactorial with a/c CHF, untreated LULI, pulmHTN, and probable obesity-hypoventilation syndrome 2. Acute on chronic diastolic CHF; recent echo with preserved LV systolic f unction. Improved with diuresis 3. CAD; recent cath in May 2020 showed 60% stenosis involving LAD with negative IFR and 100% CSR RETAIL involving moderate caliber obtuse marginal branch of left circumflex artery with left to left collaterals, being managed medically. 4. CKD; Cr stable 5. Hypertension: labile. Norvasc increased 6. Hyperlipidemia: statin 7. Hypothyroidism: Continue levothyroxine 8. Diabetes, II 9. PAD s/p left BKA 10. Right groin hematoma post Angio-Seal failure after cardiac cath last month. stable 5. HTN; controlled overall 11. RLE cellulitis; antibiotics as per IM Recommendations Diuresis with Lasix, metolazone. Monitor renal function Secondary prevention including ASA, statin, BB therapy RLE elevation Supportive care Justicifation of Admission Dx: Justifications for Admission: Justification of Admission Dx: N/A JAY SMYTH MD 07/01/201840: CARDIO Progress Notes Assessment Assessment Patient seen and examined. Agree with HANDICAPPER HARNESS RACING's assessment and plan. Acute on chronic diastolic HF improving with diuresis with lasix and metolazone CAD and PAD status clinically stable Recent echo showed normal LVF FARHANA HOFFMAN APRN Jul 01, 2020 12:20 JAY SMYTH MD Jul 01, 2020 18:41
--- NOTE | 2020-07-01 14:59 | NUR ---
SW following. Discussed with RN, pt from home, 3L (uses oxygen at home), cardiac diet. Pt just discharged from [facility] on 06/28/20. PT/OT recommending SNF. SW met with pt, pt stating she cannot return home because her house is a mess and her has too many cats. PT reporting she is going to speak with her son about potentially going to a motel whilst she arranges an apartment/ assisted living. SW notified pt of copay for SNf ($180 per day), pt will speak with her son. SUSU spoke with Wendy at [facility] - pt's insurance said they likely will not approve SNF again. SW did speak with pt about Medicaid and that [facility] can assist her with this. SUSU will continue to follow.
[2020-07-01 15:00] VITALS: BP 131/56
[2020-07-01] MEDS: ASCORBIC ACID 500 MG TABLET PO SCH (17:27)
[2020-07-01] MEDS: MULTIVITAMIN with MINERAL TABLET. PO SCH (17:27)
--- NOTE | 2020-07-01 18:01 | NUR ---
Wound/Ostomy Care Wound Type/Assessment: consult for RLE cellulitis. Pt has 3 small VLU that are draining copious amount of serous drainage. Treatment Recommendations/Plan: Cleansed leg and wrapped with 1/2 chux and kerlix. Change daily and as needed for drainage. Pt should elevate leg at all times. Education provided: POC and PU prevention. Offloading surface/device: encourage turning Recommended Referrals/Tests: pt could benefit from vascular workup and follow up in C Discharge Recommendations for dressings: continue as above noted
[2020-07-01 19:30] VITALS: BP 115/49
[2020-07-01] MEDS: ATORVASTATIN CALCIUM 40 MG TABLET. PO SCH (20:29)
[2020-07-01] MEDS: SENNOSIDES/DOCUSATE 8.6/50MG TABLET. PO SCH (20:29)
[2020-07-01] MEDS: INSULIN GLARGINE SYRINGE. SQ SCH (20:38)
[2020-07-01] MEDS: LORazepam 0.5 MG TABLET PO PRN (21:46)
[2020-07-01 22:45] VITALS: BP 147/68
[2020-07-02 03:05] VITALS: BP 137/60
[2020-07-02] MEDS: LEVOTHYROXINE 150 MCG TABLET PO SCH (05:31)
[2020-07-02] MEDS: MEROPENEM 500 MG in IV NORMAL SALINE 50ML 50 ML IV SCH (05:31)
[2020-07-02 05:48] LABS: BASO # 0.1 x10^3/uL (0.0-0.2); BASO % 1 % (0-3); EOS # 0.4 x10^3/uL (0.0-0.7); EOS % 4 % (0-3); HEMATOCRIT 31.5 % (36.0-47.0); HEMOGLOBIN 9.7 g/dL (12.0-15.5); LYMPH # 1.2 x10^3/uL (1.0-4.8); LYMPH % 14 % (24-48); MEAN CORPUSCULAR HEMOGLOBIN 26 pg (25-35); MEAN CORPUSCULAR HGB CONC 31 g/dL (31-37); MEAN CORPUSCULAR VOLUME 84 fL (79-100); MONO # 0.7 x10^3/uL (0.0-1.1); MONO % 9 % (0-9); NEUT # 5.9 x10^3/uL (1.8-7.7); NEUT % 72 % (31-73); PLATELET COUNT 243 x10^3/uL (140-400); RED BLOOD COUNT 3.74 x10^6/uL (3.50-5.40); RED CELL DISTRIBUTION WIDTH 18.6 % (11.5-14.5); WHITE BLOOD COUNT 8.2 x10^3/uL (4.0-11.0)
[2020-07-02 06:14] LABS: CALCIUM 8.7 mg/dL (8.5-10.1); CREATININE 1.3 mg/dL (0.6-1.0); GFR 39.6; POTASSIUM 3.7 mmol/L (3.5-5.1)
[2020-07-02 07:00] VITALS: BP 141/70
[2020-07-02] MEDS: PARoxetine 10 MG TABLET PO SCH (08:57)
[2020-07-02] MEDS: ASPIRIN CHEWABLE 81 MG TABLET. PO SCH (08:57)
[2020-07-02] MEDS: POTASSIUM CHLORIDE 20 MEQ TABLET.ER. PO SCH ×3 (08:57→17:25)
[2020-07-02] MEDS: MULTIVITAMIN with MINERAL TABLET. PO SCH (08:58)
[2020-07-02] MEDS: ALLOPURINOL 100 MG TABLET. PO SCH (08:58)
[2020-07-02] MEDS: FUROSEMIDE 40 MG/4 ML VIAL. IVP SCH ×2 (08:58→14:46)
[2020-07-02] MEDS: LACTOBACILLUS RHAMNOSUS GG 1 CAPSULE. PO SCH ×2 (08:58→20:51)
[2020-07-02] MEDS: ASCORBIC ACID 500 MG TABLET PO SCH (08:58)
[2020-07-02] MEDS: METOPROLOL SUCC 24HR ER 50 MG TAB.ER.24H. PO SCH (08:58)
[2020-07-02] MEDS: HEPARIN for SUB-Q USE 5,000 UNIT/ML VIAL. SQ SCH ×2 (09:06→20:56)
[2020-07-02] MEDS: INSULIN LISPRO 300 UNITS/3 ML VIAL. SQ SCH ×3 (09:07→17:28)
--- NOTE | 2020-07-02 09:24 | PDOC ---
PULMONARY PROGRESS NOTES DATE: 07/02/20 TIME: 09:23 Subjective pt. is up in chair pt. remains on 3 liters NC wore BIPAP most of last night no overnight concerns, no SOB or increased cough Vitals Vital Signs Date Time Temp Pulse Resp B/P (MAP) Pulse Ox O2 Delivery O2 Flow Rate FiO2 07/02/20 08:58 67 141/70 07/02/20 07:00 97.8 16 93 Nasal Cannula 2.0 97.8 ROS: No Nausea, No Chest Pain, No Abdominal Pain, No Increase Cough General: Alert Lungs: Clear Cardiovascular: S1, S2 Abdomen: Soft, Non-tender, Other (obese ) Extremities: Other (left prosthesis, right edema) Skin: Other (right LE erythema and left BKA) Labs Laboratory Tests Test 06/30/20 11:39 06/30/20 16:08 06/30/20 20:52 07/01/20 05:55 Glucose (Fingerstick) 269 mg/dL (70-99) 228 mg/dL (70-99) 172 mg/dL (70-99) White Blood Count 7.8 x10^3/uL (4.0-11.0) Red Blood Count 3.46 x10^6/uL (3.50-5.40) Hemoglobin 9.2 g/dL (12.0-15.5) Hematocrit 29.3 % (36.0-47.0) Mean Corpuscular Volume 85 fL (79-100) Mean Corpuscular Hemoglobin 27 pg (25-35) Mean Corpuscular Hemoglobin Concent 31 g/dL (31-37) Red Cell Distribution Width 18.8 % (11.5-14.5) Platelet Count 236 x10^3/uL (140-400) Neutrophils (%) (Auto) 74 % (31-73) Lymphocytes (%) (Auto) 12 % (24-48) Monocytes (%) (Auto) 9 % (0-9) Eosinophils (%) (Auto) 5 % (0-3) Basophils (%) (Auto) 1 % (0-3) Neutrophils # (Auto) 5.7 x10^3/uL (1.8-7.7) Lymphocytes # (Auto) 0.9 x10^3/uL (1.0-4.8) Monocytes # (Auto) 0.7 x10^3/uL (0.0-1.1) Eosinophils # (Auto) 0.4 x10^3/uL (0.0-0.7) Basophils # (Auto) 0.1 x10^3/uL (0.0-0.2) Sodium Level 143 mmol/L (136-145) Potassium Level 4.3 mmol/L (3.5-5.1) Chloride Level 103 mmol/L (98-107) Carbon Dioxide Level 40 mmol/L (21-32) Anion Gap (6-14) Blood Urea Nitrogen 24 mg/dL (7-20) Creatinine 1.3 mg/dL (0.6-1.0) Estimated GFR (Cockcroft-Gault) 39.6 Glucose Level 185 mg/dL (70-99) Calcium Level 8.4 mg/dL (8.5-10.1) Magnesium Level 2.2 mg/dL (1.8-2.4) Test 07/01/20 07:28 07/01/20 11:21 07/01/20 17:03 07/01/20 20:04 Glucose (Fingerstick) 168 mg/dL (70-99) 193 mg/dL (70-99) 169 mg/dL (70-99) 178 mg/dL (70-99) Test 07/02/20 04:50 07/02/20 07:38 White Blood Count 8.2 x10^3/uL (4.0-11.0) Red Blood Count 3.74 x10^6/uL (3.50-5.40) Hemoglobin 9.7 g/dL (12.0-15.5) Hematocrit 31.5 % (36.0-47.0) Mean Corpuscular Volume 84 fL (79-100) Mean Corpuscular Hemoglobin 26 pg (25-35) Mean Corpuscular Hemoglobin Concent 31 g/dL (31-37) Red Cell Distribution Width 18.6 % (11.5-14.5) Platelet Count 243 x10^3/uL (140-400) Neutrophils (%) (Auto) 72 % (31-73) Lymphocytes (%) (Auto) 14 % (24-48) Monocytes (%) (Auto) 9 % (0-9) Eosinophils (%) (Auto) 4 % (0-3) Basophils (%) (Auto) 1 % (0-3) Neutrophils # (Auto) 5.9 x10^3/uL (1.8-7.7) Lymphocytes # (Auto) 1.2 x10^3/uL (1.0-4.8) Monocytes # (Auto) 0.7 x10^3/uL (0.0-1.1) Eosinophils # (Auto) 0.4 x10^3/uL (0.0-0.7) Basophils # (Auto) 0.1 x10^3/uL (0.0-0.2) Sodium Level 144 mmol/L (136-145) Potassium Level 3.7 mmol/L (3.5-5.1) Chloride Level 100 mmol/L (98-107) Carbon Dioxide Level 40 mmol/L (21-32) Anion Gap 4 (6-14) Blood Urea Nitrogen 22 mg/dL (7-20) Creatinine 1.3 mg/dL (0.6-1.0) Estimated GFR (Cockcroft-Gault) 39.6 Glucose Level 126 mg/dL (70-99) Calcium Level 8.7 mg/dL (8.5-10.1) Magnesium Level 2.0 mg/dL (1.8-2.4) Glucose (Fingerstick) 123 mg/dL (70-99) Laboratory Tests Test 07/01/20 11:21 07/01/20 17:03 07/01/20 20:04 07/02/20 04:50 Glucose (Fingerstick) 193 mg/dL (70-99) 169 mg/dL (70-99) 178 mg/dL (70-99) White Blood Count 8.2 x10^3/uL (4.0-11.0) Red Blood Count 3.74 x10^6/uL (3.50-5.40) Hemoglobin 9.7 g/dL (12.0-15.5) Hematocrit 31.5 % (36.0-47.0) Mean Corpuscular Volume 84 fL (79-100) Mean Corpuscular Hemoglobin 26 pg (25-35) Mean Corpuscular Hemoglobin Concent 31 g/dL (31-37) Red Cell Distribution Width 18.6 % (11.5-14.5) Platelet Count 243 x10^3/uL (140-400) Neutrophils (%) (Auto) 72 % (31-73) Lymphocytes (%) (Auto) 14 % (24-48) Monocytes (%) (Auto) 9 % (0-9) Eosinophils (%) (Auto) 4 % (0-3) Basophils (%) (Auto) 1 % (0-3) Neutrophils # (Auto) 5.9 x10^3/uL (1.8-7.7) Lymphocytes # (Auto) 1.2 x10^3/uL (1.0-4.8) Monocytes # (Auto) 0.7 x10^3/uL (0.0-1.1) Eosinophils # (Auto) 0.4 x10^3/uL (0.0-0.7) Basophils # (Auto) 0.1 x10^3/uL (0.0-0.2) Sodium Level 144 mmol/L (136-145) Potassium Level 3.7 mmol/L (3.5-5.1) Chloride Level 100 mmol/L (98-107) Carbon Dioxide Level 40 mmol/L (21-32) Anion Gap 4 (6-14) Blood Urea Nitrogen 22 mg/dL (7-20) Creatinine 1.3 mg/dL (0.6-1.0) Estimated GFR (Cockcroft-Gault) 39.6 Glucose Level 126 mg/dL (70-99) Calcium Level 8.7 mg/dL (8.5-10.1) Magnesium Level 2.0 mg/dL (1.8-2.4) Test 07/02/20 07:38 Glucose (Fingerstick) 123 mg/dL (70-99) Medications Active Scripts Medications Dose Route/Sig Max Daily Dose Days Date Category Dose Instructions Furosemide 40 Mg Tablet 40 Mg PO BID 06/12/20 Rx Amlodipine Besylate 5 Mg Tablet 5 Mg PO DAILY 06/12/20 Rx Atorvastatin Calcium 40 Mg Tablet 40 Mg PO QHS 06/12/20 Rx Admelog (Insulin Lispro) 100 Unit/1 Ml Vial 6 Units SQ TIDAC 06/04/20 Rx hold if blood sugar less than 90 before a meal Lantus (Insulin Glargine,Hum.rec.anlog) 100 Unit/1 Ml Vial 14 Unit SQ QHS 06/04/20 Rx Klor-Con M20 (Potassium Chloride) 20 Meq Tab.er.prt 20 Meq PO DAILY 06/04/20 Rx Nyamyc (Nystatin) 15 Gm Powder 1 Renee TP BID 05/12/20 Rx Stool Soft-Stimulant Lax Tab (Sennosides/Docusate Sodium) 1 Each Tablet 2 Tab PO DAILY 05/12/20 Rx Metoprolol Tartrate 25 Mg Tablet 25 Mg PO BID 05/12/20 Rx Feosol (Ferrous Sulfate) 325 Mg Tablet 325 Mg PO QODAY 05/12/20 Rx Aspirin 81 Mg Tab.chew 81 Mg PO HS 05/03/20 Reported Synthroid (Levothyroxine Sodium) 150 Mcg Tablet 150 Mcg PO DAILY06 05/21/19 Rx Allopurinol 100 Mg Tablet 100 Mg PO DAILY 05/21/19 Rx Paroxetine Hcl 20 Mg Tablet 20 Mg PO DAILY 05/21/19 Rx Tylenol (Acetaminophen) 325 Mg Tablet 650 Mg PO PRN Q4HRS 05/19/13 Reported Comments CXR- mild CHF Impression . ASSESSMENT: 1. Acute on chronic respiratory failure secondary to acute diastolic congestive heart failure, inadequately treated obstructive sleep apnea/hypopnea syndrome and obesity hypoventilation syndrome.-- improved 2. Abnormal chest x-ray. 3. Acute diastolic congestive heart failure. 4. Obstructive sleep apnea/hypopnea syndrome and obesity hypoventilation syndrome. 5. Chronic kidney disease. 6. Diabetes mellitus. 7. Hypertension. 8. Right lower extremity cellulitis. 9. Coronary artery disease. 10. Peripheral arterial disease, status post left below-knee amputation. 11. Recent right groin hematoma. 12. History of nonsustained ventricular tachycardia. Plan . PLAN Titrate FIO2 to keep O2 saturation 90%.currently on 3 liters NC Continue CPAP at night and with napping Continue lasix and cardiology recs -- EF 55% in 05/2020 and PAP 47 Follow ID recs for ABX Monitor renal function DM per IM PT/OT DVT/GI PPX stable pulmonary murguia BILL BHANDARI MD Jul 02, 2020 09:24
--- NOTE | 2020-07-02 10:00 | PDOC ---
Infectious Disease Note Subjective: Subjective Patient feels better Swelling and redness of right lower extremity has improved Still has weeping from right lower extremity Remains on O2 by nasal cannula Uses BiPAP at night Vital Signs: Vital Signs Vital Signs Date Time Temp Pulse Resp B/P (MAP) Pulse Ox O2 Delivery O2 Flow Rate FiO2 07/02/20 08:58 67 141/70 07/02/20 08:00 Nasal Cannula 2.0 07/02/20 07:00 97.8 16 93 97.8 Physical Exam: PHYSICAL EXAM GENERAL: Not oriented x3 female in no acute distress HEENT: Normal conjunctivae. Oropharynx pink and moist. No lesions seen. NECK: Supple. LUNGS: Clear to auscultation. No accessory muscle use. HEART: S1 and S2. ABDOMEN: Obese, soft, nontender with bowel sounds present. GENITOURINARY: Indwelling Cifuentes in place. EXTREMITIES: Left BKA prosthesis in place. Right lower extremity 2+ edema up to the groin area associated with erythema, warmth and weeping. Improving. SKIN: Warm to touch. No signs of rash. NEUROLOGIC: Alert and answering questions appropriately. PERIPHERAL IV: Looks okay. Medications: Inpatient Meds: Medications reviewed. Labs: Lab Laboratory Tests Test 07/01/20 11:21 07/01/20 17:03 07/01/20 20:04 07/02/20 04:50 Glucose (Fingerstick) 193 mg/dL (70-99) 169 mg/dL (70-99) 178 mg/dL (70-99) White Blood Count 8.2 x10^3/uL (4.0-11.0) Red Blood Count 3.74 x10^6/uL (3.50-5.40) Hemoglobin 9.7 g/dL (12.0-15.5) Hematocrit 31.5 % (36.0-47.0) Mean Corpuscular Volume 84 fL (79-100) Mean Corpuscular Hemoglobin 26 pg (25-35) Mean Corpuscular Hemoglobin Concent 31 g/dL (31-37) Red Cell Distribution Width 18.6 % (11.5-14.5) Platelet Count 243 x10^3/uL (140-400) Neutrophils (%) (Auto) 72 % (31-73) Lymphocytes (%) (Auto) 14 % (24-48) Monocytes (%) (Auto) 9 % (0-9) Eosinophils (%) (Auto) 4 % (0-3) Basophils (%) (Auto) 1 % (0-3) Neutrophils # (Auto) 5.9 x10^3/uL (1.8-7.7) Lymphocytes # (Auto) 1.2 x10^3/uL (1.0-4.8) Monocytes # (Auto) 0.7 x10^3/uL (0.0-1.1) Eosinophils # (Auto) 0.4 x10^3/uL (0.0-0.7) Basophils # (Auto) 0.1 x10^3/uL (0.0-0.2) Sodium Level 144 mmol/L (136-145) Potassium Level 3.7 mmol/L (3.5-5.1) Chloride Level 100 mmol/L (98-107) Carbon Dioxide Level 40 mmol/L (21-32) Anion Gap 4 (6-14) Blood Urea Nitrogen 22 mg/dL (7-20) Creatinine 1.3 mg/dL (0.6-1.0) Estimated GFR (Cockcroft-Gault) 39.6 Glucose Level 126 mg/dL (70-99) Calcium Level 8.7 mg/dL (8.5-10.1) Magnesium Level 2.0 mg/dL (1.8-2.4) Test 07/02/20 07:38 Glucose (Fingerstick) 123 mg/dL (70-99) Objective: Assessment: 1. Recurrent cellulitis, right lower extremity. 2. Mild bibasilar infiltrates. 3. Type 2 diabetes mellitus with peripheral neuropathy. 4. Chronic kidney disease. 5. Peripheral arterial disease. 6. Obesity. 7. Cat exposure. 8. History of methicillin-resistant Staphylococcus aureus and extended spectrum beta-lactamase. 9. Acute on chronic diastolic congestive heart failure. 10. Chronic respiratory failure on home O2 at 2 L Plan: Plan of Care Continue Zyvox Change Merrem to ceftriaxone Encouraged leg elevation Local wound care Monitor labs and cultures LADARIUS VENTURA MD Jul 02, 2020 10:00
--- NOTE | 2020-07-02 10:35 | NUR ---
SS following up with discharge planning. SS reviewed pt chart and discussed with pt RN. Pt is from home with spouse and is currently requiring oxygen at two liters nasal canula. Pt has home oxygen. Pt on IV Rocephin. PT/OT recommended senior living unit. Pt's insurance not wanting to approve senior living unit again. Pt is currently in co-pay days for senior living unit. SS met with pt and spouse in room. Pt is stating that her home is unsafe and she cannot return to home until it has been cleaned out. Pt and pt's spouse reported that her son, Rajan, , is looking for LTC options for pt at this time. SS discussed hospice and home healthcare with pt and pt's spouse. Pt was accepted on services with [facility], ; fax [phone], upon recent discharge from [facility]. SS left voicemail for pt's son requesting return call. SS will continue to follow for discharge planning.
--- NOTE | 2020-07-02 10:47 | PDOC ---
PROGRESS NOTES Date of Service DATE: 07/02/20 TIME: 10:43 Subjective Subjective feels better. had a good diuresis. lab reviewed. constipated Objective Objective Vital Signs Date Time Temp Pulse Resp B/P (MAP) Pulse Ox O2 Delivery O2 Flow Rate FiO2 07/02/20 08:58 67 141/70 07/02/20 08:00 Nasal Cannula 2.0 07/02/20 07:00 97.8 16 93 97.8 Intake and Output 07/02/20 07:00 Intake Total 1550 ml Output Total 4300 ml Balance -2750 ml Intake Oral 1150 ml IV Total 400 ml Output Urine Total 4300 ml Physical Exam Abdomen: Soft, Other (obese) Heart: Regular rate, Normal S1, Normal S2 Extremities: Other (2 plus edema RLE with left BKA) General: Alert HEENT: Atraumatic Lungs: Clear to auscultation Neuro: Normal speech Psych/Mental Status: Mental status NL Skin: Other (less redness and swelling RLE) Assessment Assessment Problems1. Cellulitis of the right leg. improving 2. Acute on chronic diastolic congestive heart failure manifested by crackles in the lungs, hypoxia and increasing peripheral edema in the right lower extremity and elevated proBNP. 3. Acute on chronic hypoxic and hypercapnic respiratory failure. She notes increasing dyspnea on exertion with just short distances. 4. Diabetes mellitus type 2, on insulin with peripheral neuropathy and nephropathy. 5. Chronic kidney disease stage 3. 6. Chronic venous insufficiency of the lower extremity. 7. Anemia of chronic disease. 8. Moderate protein calorie malnutrition. 9. Hypertension. 10. Hyperlipidemia. 11. Morbid obesity. 12. Obstructive sleep apnea. 13. Nonobstructive coronary artery disease. 14. Left below-knee amputation with amputations of the second and third toes of the right foot. 15. Mild peripheral arterial disease. constipation Medical Problems: (1) Cellulitis Status: Acute (2) CHF exacerbation Status: Acute Plan Plan of Care continue iv rocephin continue iv lasix and dose metolazone today increase kcl PT and OT heparin for dvt prophylaxis lab tomorrow lactulose today Comment Review of Relevant I have reviewed the following items helio (where applicable) has been applied. Labs Laboratory Tests Test 06/30/20 11:39 06/30/20 16:08 06/30/20 20:52 07/01/20 05:55 Glucose (Fingerstick) 269 mg/dL (70-99) 228 mg/dL (70-99) 172 mg/dL (70-99) White Blood Count 7.8 x10^3/uL (4.0-11.0) Red Blood Count 3.46 x10^6/uL (3.50-5.40) Hemoglobin 9.2 g/dL (12.0-15.5) Hematocrit 29.3 % (36.0-47.0) Mean Corpuscular Volume 85 fL (79-100) Mean Corpuscular Hemoglobin 27 pg (25-35) Mean Corpuscular Hemoglobin Concent 31 g/dL (31-37) Red Cell Distribution Width 18.8 % (11.5-14.5) Platelet Count 236 x10^3/uL (140-400) Neutrophils (%) (Auto) 74 % (31-73) Lymphocytes (%) (Auto) 12 % (24-48) Monocytes (%) (Auto) 9 % (0-9) Eosinophils (%) (Auto) 5 % (0-3) Basophils (%) (Auto) 1 % (0-3) Neutrophils # (Auto) 5.7 x10^3/uL (1.8-7.7) Lymphocytes # (Auto) 0.9 x10^3/uL (1.0-4.8) Monocytes # (Auto) 0.7 x10^3/uL (0.0-1.1) Eosinophils # (Auto) 0.4 x10^3/uL (0.0-0.7) Basophils # (Auto) 0.1 x10^3/uL (0.0-0.2) Sodium Level 143 mmol/L (136-145) Potassium Level 4.3 mmol/L (3.5-5.1) Chloride Level 103 mmol/L (98-107) Carbon Dioxide Level 40 mmol/L (21-32) Anion Gap (6-14) Blood Urea Nitrogen 24 mg/dL (7-20) Creatinine 1.3 mg/dL (0.6-1.0) Estimated GFR (Cockcroft-Gault) 39.6 Glucose Level 185 mg/dL (70-99) Calcium Level 8.4 mg/dL (8.5-10.1) Magnesium Level 2.2 mg/dL (1.8-2.4) Test 4/26/21 07:28 07/01/20 11:21 07/01/20 17:03 07/01/20 20:04 Glucose (Fingerstick) 168 mg/dL (70-99) 193 mg/dL (70-99) 169 mg/dL (70-99) 178 mg/dL (70-99) Test 07/02/20 04:50 07/02/20 07:38 White Blood Count 8.2 x10^3/uL (4.0-11.0) Red Blood Count 3.74 x10^6/uL (3.50-5.40) Hemoglobin 9.7 g/dL (12.0-15.5) Hematocrit 31.5 % (36.0-47.0) Mean Corpuscular Volume 84 fL (79-100) Mean Corpuscular Hemoglobin 26 pg (25-35) Mean Corpuscular Hemoglobin Concent 31 g/dL (31-37) Red Cell Distribution Width 18.6 % (11.5-14.5) Platelet Count 243 x10^3/uL (140-400) Neutrophils (%) (Auto) 72 % (31-73) Lymphocytes (%) (Auto) 14 % (24-48) Monocytes (%) (Auto) 9 % (0-9) Eosinophils (%) (Auto) 4 % (0-3) Basophils (%) (Auto) 1 % (0-3) Neutrophils # (Auto) 5.9 x10^3/uL (1.8-7.7) Lymphocytes # (Auto) 1.2 x10^3/uL (1.0-4.8) Monocytes # (Auto) 0.7 x10^3/uL (0.0-1.1) Eosinophils # (Auto) 0.4 x10^3/uL (0.0-0.7) Basophils # (Auto) 0.1 x10^3/uL (0.0-0.2) Sodium Level 144 mmol/L (136-145) Potassium Level 3.7 mmol/L (3.5-5.1) Chloride Level 100 mmol/L (98-107) Carbon Dioxide Level 40 mmol/L (21-32) Anion Gap 4 (6-14) Blood Urea Nitrogen 22 mg/dL (7-20) Creatinine 1.3 mg/dL (0.6-1.0) Estimated GFR (Cockcroft-Gault) 39.6 Glucose Level 126 mg/dL (70-99) Calcium Level 8.7 mg/dL (8.5-10.1) Magnesium Level 2.0 mg/dL (1.8-2.4) Glucose (Fingerstick) 123 mg/dL (70-99) Laboratory Tests Test 07/01/20 11:21 07/01/20 17:03 07/01/20 20:04 07/02/20 04:50 Glucose (Fingerstick) 193 mg/dL (70-99) 169 mg/dL (70-99) 178 mg/dL (70-99) White Blood Count 8.2 x10^3/uL (4.0-11.0) Red Blood Count 3.74 x10^6/uL (3.50-5.40) Hemoglobin 9.7 g/dL (12.0-15.5) Hematocrit 31.5 % (36.0-47.0) Mean Corpuscular Volume 84 fL (79-100) Mean Corpuscular Hemoglobin 26 pg (25-35) Mean Corpuscular Hemoglobin Concent 31 g/dL (31-37) Red Cell Distribution Width 18.6 % (11.5-14.5) Platelet Count 243 x10^3/uL (140-400) Neutrophils (%) (Auto) 72 % (31-73) Lymphocytes (%) (Auto) 14 % (24-48) Monocytes (%) (Auto) 9 % (0-9) Eosinophils (%) (Auto) 4 % (0-3) Basophils (%) (Auto) 1 % (0-3) Neutrophils # (Auto) 5.9 x10^3/uL (1.8-7.7) Lymphocytes # (Auto) 1.2 x10^3/uL (1.0-4.8) Monocytes # (Auto) 0.7 x10^3/uL (0.0-1.1) Eosinophils # (Auto) 0.4 x10^3/uL (0.0-0.7) Basophils # (Auto) 0.1 x10^3/uL (0.0-0.2) Sodium Level 144 mmol/L (136-145) Potassium Level 3.7 mmol/L (3.5-5.1) Chloride Level 100 mmol/L (98-107) Carbon Dioxide Level 40 mmol/L (21-32) Anion Gap 4 (6-14) Blood Urea Nitrogen 22 mg/dL (7-20) Creatinine 1.3 mg/dL (0.6-1.0) Estimated GFR (Cockcroft-Gault) 39.6 Glucose Level 126 mg/dL (70-99) Calcium Level 8.7 mg/dL (8.5-10.1) Magnesium Level 2.0 mg/dL (1.8-2.4) Test 07/02/20 07:38 Glucose (Fingerstick) 123 mg/dL (70-99) Microbiology 06/29/20 Blood Culture - Preliminary, Resulted NO GROWTH AFTER 2 DAYS Medications Current Medications Vancomycin HCl (Vanco Per Pharmacy) 1 each PRN DAILY PRN MC SEE COMMENTS; Start 06/29/20 at 12:45; Stop 06/29/20 at 15:36; Status DC Vancomycin HCl 2 gm/Sodium Chloride 500 ml @ 250 mls/hr 1X ONCE IV Last administered on 06/29/20at 13:48; Start 06/29/20 at 13:00; Stop 06/29/20 at 14:59; Status DC Sodium Chloride 1,000 ml @ 250 mls/hr 1X ONCE IV Last administered on 06/29/20at 13:47; Start 06/29/20 at 13:30; Stop 06/29/20 at 15:36; Status DC Atorvastatin Calcium (Lipitor) 40 mg QHS PO Last administered on 07/01/20at 20:29; Start 06/29/20 at 21:00 Furosemide (Lasix) 40 mg BID92 IVP Last administered on 07/02/20at 08:58; Start 06/29/20 at 16:00 Acetaminophen (Tylenol) 650 mg PRN Q6HRS PRN PO MILD PAIN / TEMP > 100.3'F; Start 06/29/20 at 15:30 Allopurinol (Zyloprim) 100 mg DAILY PO Last administered on 07/02/20at 08:58; Start 06/30/20 at 09:00 Aspirin (Aspirin Chewable) 81 mg DAILYWBKFT PO Last administered on 07/02/20at 08:57; Start 06/30/20 at 08:00 Ferrous Sulfate (Feosol) 325 mg QODAY PO ; Start 07/01/20 at 09:00 Insulin Glargine (Lantus Syringe) 14 unit QHS SQ Last administered on 06/29/20 21:42; Start 06/29/20 at 21:00; Stop 06/30/20 at 11:12; Status DC Insulin Human Lispro (HumaLOG) 6 units TIDAC SQ Last administered on 06/30/20 08:43; Start 06/29/20 at 16:30; Stop 06/30/20 at 11:12; Status DC Levothyroxine Sodium (Synthroid) 150 mcg DAILY06 PO Last administered on 07/02/20 05:31; Start 06/30/20 at 06:00 Metoprolol Succinate (Toprol Xl) 50 mg DAILY PO Last administered on 07/02/20 08:58; Start 06/30/20 at 09:00 Potassium Chloride (Klor-Con) 20 meq DAILYWBKFT PO Last administered on 06/30/20 08:24; Start 06/30/20 at 08:00; Stop 06/30/20 at 11:12; Status DC Senna/Docusate Sodium (Senna Plus) 2 tab QHS PO Last administered on 07/01/20 20:29; Start 06/29/20 at 21:00 Amlodipine Besylate (Norvasc) 5 mg DAILY PO Last administered on 07/02/20 08:58; Start 06/30/20 at 09:00 Linezolid/Dextrose 300 ml @ 300 mls/hr Q12HR IV Last administered on 07/02/20 09:07; Start 06/29/20 at 21:00; Stop 07/02/20 at 10:24; Status DC Meropenem 500 mg/ Sodium Chloride 50 ml @ 100 mls/hr Q8HRS IV Last administered on 07/02/20 05:31; Start 06/29/20 at 16:00; Stop 07/02/20 at 10:23; Status DC Heparin Sodium (Porcine) (Heparin Sodium) 5,000 unit Q12HR SQ Last administered on 07/02/20 09:06; Start 06/29/20 at 21:00 Lorazepam (Ativan) 0.25 mg 1X ONCE PO Last administered on 06/30/20 00:16; Start 06/30/20 at 00:30; Stop 06/30/20 at 00:31; Status DC Paroxetine HCl (Paxil) 10 mg DAILY PO Last administered on 07/02/20 08:57; Start 06/30/20 at 00:30 Lactobacillus Rhamnosus (Culturelle) 1 cap BID PO Last administered on 07/02/20 08:58; Start 06/30/20 at 21:00 Insulin Glargine (Lantus Syringe) 18 unit QHS SQ Last administered on 07/01/20 20:38; Start 06/30/20 at 21:00 Insulin Human Lispro (HumaLOG) 8 units TIDAC SQ Last administered on 07/02/20 09:07; Start 06/30/20 at 11:30 Potassium Chloride (Klor-Con) 20 meq BIDWMEALS PO Last administered on 07/02/20 08:57; Start 06/30/20 at 12:00 Metolazone (Zaroxolyn) 5 mg 1X ONCE PO Last administered on 06/30/20at 12:28; Start 06/30/20 at 11:15; Stop 06/30/20 at 11:23; Status DC Metolazone (Zaroxolyn) 5 mg 1X ONCE PO Last administered on 07/01/20at 10:40; Start 07/01/20 at 10:30; Stop 07/01/20 at 10:31; Status DC Multivitamins (Thera M Plus) 1 tab DAILY PO Last administered on 07/02/20 08:58; Start 07/01/20 at 15:00 Ascorbic Acid (Vitamin C) 500 mg DAILY PO Last administered on 07/02/20 08:58; Start 07/01/20 at 15:00 Lorazepam (Ativan) 0.25 mg PRN QHS PRN PO anxiety/insomnia Last administered on 07/01/20at 21:46; Start 07/01/20 at 20:30 Ceftriaxone Sodium (Rocephin) 2 gm Q24H IVP ; Start 07/02/20 at 11:00 Active Scripts Active Furosemide 40 Mg Tablet 40 Mg PO BID Amlodipine Besylate 5 Mg Tablet 5 Mg PO DAILY Atorvastatin Calcium 40 Mg Tablet 40 Mg PO QHS Admelog (Insulin Lispro) 100 Unit/1 Ml Vial 6 Units SQ TIDAC hold if blood sugar less than 90 before a meal Lantus (Insulin Glargine,Hum.rec.anlog) 100 Unit/1 Ml Vial 14 Unit SQ QHS Klor-Con M20 (Potassium Chloride) 20 Meq Tab.er.prt 20 Meq PO DAILY Nyamyc (Nystatin) 15 Gm Powder 1 Renee TP BID Stool Soft-Stimulant Lax Tab (Sennosides/Docusate Sodium) 1 Each Tablet 2 Tab PO DAILY Metoprolol Tartrate 25 Mg Tablet 25 Mg PO BID Feosol (Ferrous Sulfate) 325 Mg Tablet 325 Mg PO QODAY Synthroid (Levothyroxine Sodium) 150 Mcg Tablet 150 Mcg PO DAILY06 Allopurinol 100 Mg Tablet 100 Mg PO DAILY Paroxetine Hcl 20 Mg Tablet 20 Mg PO DAILY Reported Aspirin 81 Mg Tab.chew 81 Mg PO HS Tylenol (Acetaminophen) 325 Mg Tablet 650 Mg PO PRN Q4HRS Vitals/I & O Vital Sign - Last 24 Hours 07/01/20 07/01/20 07/01/20 07/01/20 11:00 15:00 19:30 20:00 Temp 98.2 98.2 98.1 98.2 98.2 98.1 Pulse 63 64 66 Resp 18 18 20 B/P (MAP) 136/53 (80) 131/56 (81) 115/49 (71) Pulse Ox 97 98 98 O2 Delivery Nasal Cannula Nasal Cannula Nasal Cannula Nasal Cannula O2 Flow Rate 3.0 3.0 2.0 2.0 07/01/20 07/02/20 07/02/20 07/02/20 22:45 03:05 07:00 08:00 Temp 98.0 97.9 97.8 98.0 97.9 97.8 Pulse 65 65 67 Resp 20 20 16 B/P (MAP) 147/68 (94) 137/60 (85) 141/70 (93) Pulse Ox 96 100 93 O2 Delivery Nasal Cannula Nasal Cannula Nasal Cannula Nasal Cannula O2 Flow Rate 2.0 2.0 2.0 2.0 07/02/20 07/02/20 08:58 08:58 Pulse 67 67 B/P (MAP) 141/70 141/70 Intake and Output 07/01/20 07/01/20 07/02/20 15:00 23:00 07:00 Intake Total 650 ml 650 ml 250 ml Output Total 850 ml 900 ml 2550 ml Balance -200 ml -250 ml -2300 ml Justifications for Admission Other Justification TERE ALLISON MD Jul 02, 2020 10:47
[2020-07-02 11:00] VITALS: BP 122/52
[2020-07-02] MEDS ORDERED: metOLazone 2.5 MG TABLET PO ONE (11:30)
[2020-07-02] MEDS: LACTULOSE 20 GM/30 ML SOLUTION. PO SCH ×2 (11:44→14:46)
[2020-07-02] MEDS: cefTRIAXone IV Push 2 GM VIAL. IVP SCH (11:45)
--- NOTE | 2020-07-02 12:34 | PDOC ---
RANDY TRIVEDI CREDENTIALING ASSISTANT 07/02/20 1234: CARDIO Progress Notes Date and Time Date of Service 07/02/2020 Time of Evaluation 1210 Subjective Subjective: No Chest Pain, No shortness of breath, No Palpitations Vitals Vitals Vital Signs Date Time Temp Pulse Resp B/P (MAP) Pulse Ox O2 Delivery O2 Flow Rate FiO2 07/02/20 11:00 96.1 70 18 122/52 (75) 97 Nasal Cannula 96.1 07/02/20 08:00 2.0 Weight Weight [ ] Input and Output Intake and Output Intake and Output 07/02/20 07:00 Intake Total 1550 ml Output Total 4300 ml Balance -2750 ml Intake Oral 1150 ml IV Total 400 ml Output Urine Total 4300 ml Laboratory Labs Laboratory Tests Test 07/01/20 17:03 07/01/20 20:04 07/02/20 04:50 07/02/20 07:38 Glucose (Fingerstick) 169 mg/dL (70-99) 178 mg/dL (70-99) 123 mg/dL (70-99) White Blood Count 8.2 x10^3/uL (4.0-11.0) Red Blood Count 3.74 x10^6/uL (3.50-5.40) Hemoglobin 9.7 g/dL (12.0-15.5) Hematocrit 31.5 % (36.0-47.0) Mean Corpuscular Volume 84 fL (79-100) Mean Corpuscular Hemoglobin 26 pg (25-35) Mean Corpuscular Hemoglobin Concent 31 g/dL (31-37) Red Cell Distribution Width 18.6 % (11.5-14.5) Platelet Count 243 x10^3/uL (140-400) Neutrophils (%) (Auto) 72 % (31-73) Lymphocytes (%) (Auto) 14 % (24-48) Monocytes (%) (Auto) 9 % (0-9) Eosinophils (%) (Auto) 4 % (0-3) Basophils (%) (Auto) 1 % (0-3) Neutrophils # (Auto) 5.9 x10^3/uL (1.8-7.7) Lymphocytes # (Auto) 1.2 x10^3/uL (1.0-4.8) Monocytes # (Auto) 0.7 x10^3/uL (0.0-1.1) Eosinophils # (Auto) 0.4 x10^3/uL (0.0-0.7) Basophils # (Auto) 0.1 x10^3/uL (0.0-0.2) Sodium Level 144 mmol/L (136-145) Potassium Level 3.7 mmol/L (3.5-5.1) Chloride Level 100 mmol/L (98-107) Carbon Dioxide Level 40 mmol/L (21-32) Anion Gap 4 (6-14) Blood Urea Nitrogen 22 mg/dL (7-20) Creatinine 1.3 mg/dL (0.6-1.0) Estimated GFR (Cockcroft-Gault) 39.6 Glucose Level 126 mg/dL (70-99) Calcium Level 8.7 mg/dL (8.5-10.1) Magnesium Level 2.0 mg/dL (1.8-2.4) Test 07/02/20 12:11 Glucose (Fingerstick) 108 mg/dL (70-99) Microbiology Micro Microbiology 06/29/20 Blood Culture - Preliminary, Resulted NO GROWTH AFTER 3 DAYS Physical Exam HEENT: Neck Supple W Full Motion Chest: Symmetric LUNGS: Other (diminished bases) Heart: RRR (SR) Abdomen: Soft N/T Extremities: Other (right LE erythema, edema and left BKA) Neurology: alert, oriented, follow commands Assessment Assessment 1. Acute on chronic respiratory failure; multifactorial with a/c CHF, untreated LULI, pulmHTN, and probable obesity-hypoventilation syndrome 2. Acute on chronic diastolic CHF; recent echo with preserved LV systolic function. compensated 3. CAD; recent cath in May 2020 showed 60% stenosis involving LAD with ne gative IFR and 100% VP GENETIC involving moderate caliber obtuse marginal branch of left circumflex artery with left to left collaterals, being managed medically. 4. CKD; Cr stable at 1.3 5. Hypertension: labile. controlled 6. Hyperlipidemia: statin 7. Hypothyroidism: Continue levothyroxine 8. Diabetes, II 9. PAD s/p left BKA 10. Right groin hematoma post Angio-Seal failure after cardiac cath last month. stable 11. RLE cellulitis; antibiotics as per IM 12. PAFIB: new. maintaining SR Recommendations Excellent UOP, down 4KG, diuresis with Lasix, metolazone. Monitor renal function Secondary prevention including ASA, statin RLE elevation Continue toprol. MCOT for at least 2 weeks and will note AFIB burden and reevaluate need for any anticoagulation. ASA for now. Supportive care Justicifation of Admission Dx: Justifications for Admission: Justification of Admission Dx: N/A JAY SMYTH MD 07/02/20 1523: CARDIO Progress Notes Assessment Assessment Patient seen and examined. Agree with STAFFING ASSOCIATE's assessment and plan. Acute on chronic diastolic HF improving with diuresis with lasix and metolazone CAD and PAD status clinically stable Recent echo showed normal LVF Plan for outpatient event monitor to assess AF burden RANDY TRIVEDI APRN Jul 02, 2020 12:34 JAY SMYTH MD Jul 02, 2020 15:23
[2020-07-02 15:00] VITALS: BP 128/56
--- NOTE | 2020-07-02 15:42 | PDOC2 ---
Chief Complaint: Chief Complaint: Right lower extremity cellulitis with open wound with underlying diabetes and peripheral artery disease Vital Signs: Vital Signs: Vital Signs Date Time Temp Pulse Resp B/P (MAP) Pulse Ox O2 Delivery O2 Flow Rate FiO2 07/01/20 07:00 98.1 70 18 143/57 (85) 90 Nasal Cannula 3.0 98.1 Vital Signs Date Time Temp Pulse Resp B/P (MAP) Pulse Ox O2 Delivery O2 Flow Rate FiO2 07/02/20 15:00 98.4 66 16 128/56 (80) 97 Nasal Cannula 2.0 98.4 Allergies: Allergies: Allergies Coded Allergies Type Severity Reaction Last Updated Verified lisinopril Allergy Severe THROAT, TONGUE SWELLING 11/16/13 Yes adhesive Allergy Intermediate TAPE-RED SKIN 11/16/13 Yes sertraline HCl Allergy Intermediate 11/16/13 Yes I S O L A T I O N *CONTACT* Allergy Unknown 05/13/20 Yes morphine Adverse Reaction Intermediate Nausea 11/16/13 Yes Medications: Home Meds Active Scripts Furosemide (FUROSEMIDE) 40 Mg Tablet, 40 MG PO BID for chf, #60 TAB Prov:TERE LARA MD 06/12/20 Amlodipine Besylate (AMLODIPINE BESYLATE) 5 Mg Tablet, 5 MG PO DAILY for HTN, #30 TAB Prov:TERE LARA MD 06/12/20 Atorvastatin Calcium (ATORVASTATIN CALCIUM) 40 Mg Tablet, 40 MG PO QHS for hyperlipidemia, #30 TAB Prov:TERE LARA MD 06/12/20 Insulin Lispro (Admelog) 100 Unit/1 Ml Vial, 6 UNITS SQ TIDAC for diabetes, #10 EACH hold if blood sugar less than 90 before a meal Prov:TERE LARA MD 06/04/20 Insulin Glargine,Hum.rec.anlog (LANTUS) 100 Unit/1 Ml Vial, 14 UNIT SQ QHS for DM, #10 EACH Prov:TERE LARA MD 06/04/20 Potassium Chloride (KLOR-CON M20) 20 Meq Tab.er.prt, 20 MEQ PO DAILY for kcl supplement, #30 TAB.SR Prov:TERE LARA MD 06/04/20 Nystatin (NYAMYC) 15 Gm Powder, 1 GEOVANNA TP BID for yeast rash, #1 MISC Prov:TERE LARA MD 05/12/20 Sennosides/Docusate Sodium (STOOL SOFT-STIMULANT LAX TAB) 1 Each Tablet, 2 TAB PO DAILY for constipation, #60 TAB Prov:TERE LARA MD 05/12/20 Metoprolol Tartrate (METOPROLOL TARTRATE) 25 Mg Tablet, 25 MG PO BID for HTN, #60 TAB Prov:TERE LARA MD 05/12/20 Ferrous Sulfate (FEOSOL) 325 Mg Tablet, 325 MG PO QODAY for anemia, #15 TAB Prov:TERE LARA MD 05/12/20 Levothyroxine Sodium (SYNTHROID) 150 Mcg Tablet, 150 MCG PO DAILY06 for hypothyroidism, #30 TAB Prov:TERE LARA MD 05/21/19 Allopurinol (ALLOPURINOL) 100 Mg Tablet, 100 MG PO DAILY for chronic gout, #30 TAB Prov:TERE LARA MD 05/21/19 Paroxetine Hcl (PAROXETINE HCL) 20 Mg Tablet, 20 MG PO DAILY for depression, #30 TAB Prov:TERE LARA MD 05/21/19 Reported Medications Aspirin (ASPIRIN) 81 Mg Tab.chew, 81 MG PO HS for heart healthy, TAB.CHEW 05/03/20 Acetaminophen (TYLENOL) 325 Mg Tablet, 650 MG PO PRN Q4HRS 05/19/13 PCP: PCP: Dr. Lara Date of Onset Patient states open wound presented itself to the right lower extremity approximately 2-week ago. Patient states that the wound and surrounding tissue have been draining copious fluids, requiring dressing changes twice daily. Stephanie ent denies acute painful symptoms of the affected leg, however patient states that she does have arthritis of the right knee and therefore has chronic pain. Patient with longstanding diabetes with multiple diabetic foot wounds in the past requiring toe amputations and ultimately a left BKA in 2013. Patient states that she had her second and third right toes amputated approximately 20 years ago secondary to diabetic foot wounds. Arterial Doppler obtained 05/31/2020 at [facility] revealed monophasic waveforms within the right leg arterial system with some regions noted to have increased velocity with questionable stenosis. The calf vessels were not seen, concluded to be secondary to small size or occlusion. Patient ambulates with prostatic to left lower extremity, therefore limb salvage on the right is of high priority. PMH hypothyroidism, hypertension, diabetes mellitus, Obstructive sleep apnea/hypopnea syndrome, obesity hypoventilation syndrome, coronary artery disease, diastolic CHF Surgical History Appendectomy, tonsillectomy, hysterectomy, Left BKA, right 2nd and 3rd toe amputations PSH Patient is and lives at home with her . Prior to it hospitalization, patient was independent with ADLs. Patient denies history of tobaccoism, denies alcohol use or illicit drug use. Review of Systems: Patient complains of chronic arthritic pain of her right knee, however denies acute pain to her right lower extremity. Patient complains of shortness of breath with exertion, denying cough. Patient denies chest pain. Patient denies fever or flulike symptoms. Patient states that she has been eating and drinking well without nausea, vomiting or diarrhea. Patient states that she has been sleeping well without headaches or mood changes. Physical Exam Patient awake and alert 79-year-old female in no apparent distress. Patient is a good historian is pleasant in conversation. Vital signs are stable. Patient is afebrile. Respirations are even and unlabored. Patient is on supplemental oxygen per nasal cannula. Abdomen is soft, nondistended, nontender and obese. Patient with Cifuentes catheter in draining straw-colored urine without sediment. Skin is warm, dry and pink. Superficial wound noted to right lower extremity. Wound bed 100% pink smooth tissue. Measurements documented in nursing assessment. Edges attached and nonrolling. Surrounding tissue with mild erythema which is warm to touch. Copious serous drainage present. No odor following cleansing. A/P 1) Right lower extremity cellulitis - ID following pt for abx therapy. Pt currently on Zyvox and Merapenum - f/u blood cxs ordered per ID -Keep leg elevated as much as possible 2) peripheral artery disease with open ulceration with underlying diabetes - PCP addressing DM control -Status post left BKA, patient ambulates with prosthetic. Therefore right limb salvage important for continued ambulation. -Quanta flow was attempted at bedside, nonconclusive -Recommend vascular consultation for treatment options (Arterial dopper on 05/31/20 revealed monophasic waveforms with increased velocities and possible occlusion of the calf vessels.) -Elevate right lower extremity as much as possible -Dressing will be geared towards drainage control and protection of surrounding tissue from further breakdown. Thank you for the consult Dr. Lara. Please let her team know if we can assist you further in Ms. Frazier's care. ARY GOULD APRN Jul 02, 2020 15:41
[2020-07-02 19:25] VITALS: BP 124/58
[2020-07-02] MEDS: INSULIN GLARGINE SYRINGE. SQ SCH (20:46)
[2020-07-02] MEDS: ATORVASTATIN CALCIUM 40 MG TABLET. PO SCH (20:51)
[2020-07-02] MEDS: SENNOSIDES/DOCUSATE 8.6/50MG TABLET. PO SCH (20:52)
[2020-07-02] MEDS: LORazepam 0.5 MG TABLET PO PRN (20:52)
[2020-07-02 23:00] VITALS: BP 128/65
[2020-07-03 03:50] VITALS: BP 111/57
[2020-07-03 05:36] LABS: BASO # 0.1 x10^3/uL (0.0-0.2); BASO % 1 % (0-3); EOS # 0.3 x10^3/uL (0.0-0.7); EOS % 4 % (0-3); HEMATOCRIT 32.6 % (36.0-47.0); HEMOGLOBIN 10.1 g/dL (12.0-15.5); LYMPH % 13 % (24-48); MEAN CORPUSCULAR HEMOGLOBIN 26 pg (25-35); MEAN CORPUSCULAR HGB CONC 31 g/dL (31-37); MEAN CORPUSCULAR VOLUME 84 fL (79-100); MONO # 0.7 x10^3/uL (0.0-1.1); MONO % 9 % (0-9); NEUT # 5.6 x10^3/uL (1.8-7.7); NEUT % 74 % (31-73); PLATELET COUNT 260 x10^3/uL (140-400); RED BLOOD COUNT 3.88 x10^6/uL (3.50-5.40); RED CELL DISTRIBUTION WIDTH 18.9 % (11.5-14.5); WHITE BLOOD COUNT 7.6 x10^3/uL (4.0-11.0)
[2020-07-03] MEDS: LEVOTHYROXINE 150 MCG TABLET PO SCH (05:36)
[2020-07-03 06:08] LABS: CREATININE 1.4 mg/dL (0.6-1.0); GFR 36.4; POTASSIUM 3.6 mmol/L (3.5-5.1)
[2020-07-03 07:00] VITALS: BP 150/63
--- NOTE | 2020-07-03 08:22 | PDOC ---
Infectious Disease Note Subjective: Subjective Patient feels better Swelling and redness of right lower extremity has improved Still has weeping from right lower extremity but overall improved Remains on O2 by nasal cannula Vital Signs: Vital Signs Vital Signs Date Time Temp Pulse Resp B/P (MAP) Pulse Ox O2 Delivery O2 Flow Rate FiO2 07/03/20 03:50 97.9 64 20 111/57 (75) 96 Nasal Cannula 2.0 97.9 Physical Exam: PHYSICAL EXAM GENERAL: Alert oriented x3 female in no acute distress HEENT: Normal conjunctivae. Oropharynx pink and moist. No lesions seen. NECK: Supple. LUNGS: Clear to auscultation. No accessory muscle use. HEART: S1 and S2. ABDOMEN: Obese, soft, nontender with bowel sounds present. GENITOURINARY: Indwelling Cifuentes in place. EXTREMITIES: Left BKA prosthesis in place. Right lower extremity dressing in place not taken Swelling erythema right thigh has improved SKIN: Warm to touch. No signs of rash. NEUROLOGIC: Alert and answering questions appropriately. PERIPHERAL IV: Looks okay. Medications: Inpatient Meds: Medications reviewed. Labs: Lab Laboratory Tests Test 07/02/20 12:11 07/02/20 17:06 07/02/20 20:43 07/03/20 03:29 Glucose (Fingerstick) 108 mg/dL (70-99) 196 mg/dL (70-99) 176 mg/dL (70-99) White Blood Count 7.6 x10^3/uL (4.0-11.0) Red Blood Count 3.88 x10^6/uL (3.50-5.40) Hemoglobin 10.1 g/dL (12.0-15.5) Hematocrit 32.6 % (36.0-47.0) Mean Corpuscular Volume 84 fL (79-100) Mean Corpuscular Hemoglobin 26 pg (25-35) Mean Corpuscular Hemoglobin Concent 31 g/dL (31-37) Red Cell Distribution Width 18.9 % (11.5-14.5) Platelet Count 260 x10^3/uL (140-400) Neutrophils (%) (Auto) 74 % (31-73) Lymphocytes (%) (Auto) 13 % (24-48) Monocytes (%) (Auto) 9 % (0-9) Eosinophils (%) (Auto) 4 % (0-3) Basophils (%) (Auto) 1 % (0-3) Neutrophils # (Auto) 5.6 x10^3/uL (1.8-7.7) Lymphocytes # (Auto) 1.0 x10^3/uL (1.0-4.8) Monocytes # (Auto) 0.7 x10^3/uL (0.0-1.1) Eosinophils # (Auto) 0.3 x10^3/uL (0.0-0.7) Basophils # (Auto) 0.1 x10^3/uL (0.0-0.2) Sodium Level 143 mmol/L (136-145) Potassium Level 3.6 mmol/L (3.5-5.1) Chloride Level 100 mmol/L (98-107) Carbon Dioxide Level 38 mmol/L (21-32) Anion Gap 5 (6-14) Blood Urea Nitrogen 22 mg/dL (7-20) Creatinine 1.4 mg/dL (0.6-1.0) Estimated GFR (Cockcroft-Gault) 36.4 Glucose Level 132 mg/dL (70-99) Calcium Level 9.0 mg/dL (8.5-10.1) Magnesium Level 2.0 mg/dL (1.8-2.4) Test 07/03/20 07:39 Glucose (Fingerstick) 138 mg/dL (70-99) Objective: Assessment: 1. Recurrent cellulitis, right lower extremity. 2. Mild bibasilar infiltrates. 3. Type 2 diabetes mellitus with peripheral neuropathy. 4. Chronic kidney disease. 5. Peripheral arterial disease. 6. Obesity. 7. Cat exposure. 8. History of methicillin-resistant Staphylococcus aureus and extended spectrum beta-lactamase. 9. Acute on chronic diastolic congestive heart failure. 10. Chronic respiratory failure on home O2 at 2 L Plan: Plan of Care Continue ceftriaxone Encouraged leg elevation Local wound care Monitor labs and cultures LADARIUS VENTURA MD Jul 03, 2020 08:22
[2020-07-03] MEDS: POTASSIUM CHLORIDE 20 MEQ TABLET.ER. PO SCH ×3 (08:27→18:05)
[2020-07-03] MEDS: MULTIVITAMIN with MINERAL TABLET. PO SCH (08:27)
[2020-07-03] MEDS: PARoxetine 10 MG TABLET PO SCH (08:27)
[2020-07-03] MEDS: ASPIRIN CHEWABLE 81 MG TABLET. PO SCH (08:27)
[2020-07-03] MEDS: METOPROLOL SUCC 24HR ER 50 MG TAB.ER.24H. PO SCH (08:27)
[2020-07-03] MEDS: ASCORBIC ACID 500 MG TABLET PO SCH (08:27)
[2020-07-03] MEDS: ALLOPURINOL 100 MG TABLET. PO SCH (08:28)
[2020-07-03] MEDS: LACTOBACILLUS RHAMNOSUS GG 1 CAPSULE. PO SCH ×2 (08:28→21:02)
[2020-07-03] MEDS: FERROUS SULFATE 325 MG TABLET. PO SCH (08:29)
[2020-07-03] MEDS: FUROSEMIDE 40 MG/4 ML VIAL. IVP SCH (08:29)
[2020-07-03] MEDS: HEPARIN for SUB-Q USE 5,000 UNIT/ML VIAL. SQ SCH ×2 (08:38→21:03)
[2020-07-03] MEDS: INSULIN LISPRO 300 UNITS/3 ML VIAL. SQ SCH ×3 (08:39→18:10)
--- NOTE | 2020-07-03 10:11 | PDOC ---
PROGRESS NOTES Date of Service DATE: 07/03/20 TIME: 10:06 Subjective Subjective excellent diuresis and leg is less swollen;. feels okay. lab reviewed. blood sugars reviewed. Objective Objective Vital Signs Date Time Temp Pulse Resp B/P (MAP) Pulse Ox O2 Delivery O2 Flow Rate FiO2 07/03/20 08:28 70 150/63 07/03/20 07:00 97.9 22 95 Nasal Cannula 2.0 97.9 Intake and Output 07/03/20 07:00 Intake Total 1180 ml Output Total 3600 ml Balance -2420 ml Intake Oral 1180 ml Output Urine Total 3600 ml Physical Exam Abdomen: Soft Heart: Regular rate, Normal S1, Normal S2 Extremities: Other (1 plus edema RLE.; leg wrapped. left BKA) General: Alert HEENT: Atraumatic Lungs: Clear to auscultation Neuro: Normal speech Psych/Mental Status: Mental status NL Skin: Other (less redness RLE) Assessment Assessment Problems. Cellulitis of the right leg. improving 2. Acute on chronic diastolic congestive heart failure manifested by crackles in the lungs, better 3. Acute on chronic hypoxic and hypercapnic respiratory failure. She notes increasing dyspnea on exertion with just short distances. 4. Diabetes mellitus type 2, on insulin with peripheral neuropathy and nephropathy. 5. Chronic kidney disease stage 3. 6. Chronic venous insufficiency of the lower extremity. 7. Anemia of chronic disease. 8. Moderate protein calorie malnutrition. 9. Hypertension. 10. Hyperlipidemia. 11. Morbid obesity. 12. Obstructive sleep apnea. 13. Nonobstructive coronary artery disease. 14. Left below-knee amputation with amputations of the second and third toes of the right foot. 15. Mild peripheral arterial disease. Medical Problems: Medical Problems: (1) Cellulitis Status: Acute (2) CHF exacerbation Status: Acute Plan Plan of Care switch to po lasix and dose metolazone 2.5 mg m-w- discussed with cardiology continue iv rocephin labs tomorrow continue insulin continue sq heparin PT and OT Comment Review of Relevant I have reviewed the following items helio (where applicable) has been applied. Labs Laboratory Tests Test 07/01/20 11:21 07/01/20 17:03 07/01/20 20:04 07/02/20 04:50 Glucose (Fingerstick) 193 mg/dL (70-99) 169 mg/dL (70-99) 178 mg/dL (70-99) White Blood Count 8.2 x10^3/uL (4.0-11.0) Red Blood Count 3.74 x10^6/uL (3.50-5.40) Hemoglobin 9.7 g/dL (12.0-15.5) Hematocrit 31.5 % (36.0-47.0) Mean Corpuscular Volume 84 fL (79-100) Mean Corpuscular Hemoglobin 26 pg (25-35) Mean Corpuscular Hemoglobin Concent 31 g/dL (31-37) Red Cell Distribution Width 18.6 % (11.5-14.5) Platelet Count 243 x10^3/uL (140-400) Neutrophils (%) (Auto) 72 % (31-73) Lymphocytes (%) (Auto) 14 % (24-48) Monocytes (%) (Auto) 9 % (0-9) Eosinophils (%) (Auto) 4 % (0-3) Basophils (%) (Auto) 1 % (0-3) Neutrophils # (Auto) 5.9 x10^3/uL (1.8-7.7) Lymphocytes # (Auto) 1.2 x10^3/uL (1.0-4.8) Monocytes # (Auto) 0.7 x10^3/uL (0.0-1.1) Eosinophils # (Auto) 0.4 x10^3/uL (0.0-0.7) Basophils # (Auto) 0.1 x10^3/uL (0.0-0.2) Sodium Level 144 mmol/L (136-145) Potassium Level 3.7 mmol/L (3.5-5.1) Chloride Level 100 mmol/L (98-107) Carbon Dioxide Level 40 mmol/L (21-32) Anion Gap 4 (6-14) Blood Urea Nitrogen 22 mg/dL (7-20) Creatinine 1.3 mg/dL (0.6-1.0) Estimated GFR (Cockcroft-Gault) 39.6 Glucose Level 126 mg/dL (70-99) Calcium Level 8.7 mg/dL (8.5-10.1) Magnesium Level 2.0 mg/dL (1.8-2.4) Test 07/02/20 07:38 07/02/20 12:11 07/02/20 17:06 07/02/20 20:43 Glucose (Fingerstick) 123 mg/dL (70-99) 108 mg/dL (70-99) 196 mg/dL (70-99) 176 mg/dL (70-99) Test 07/03/20 03:29 07/03/20 07:39 White Blood Count 7.6 x10^3/uL (4.0-11.0) Red Blood Count 3.88 x10^6/uL (3.50-5.40) Hemoglobin 10.1 g/dL (12.0-15.5) Hematocrit 32.6 % (36.0-47.0) Mean Corpuscular Volume 84 fL (79-100) Mean Corpuscular Hemoglobin 26 pg (25-35) Mean Corpuscular Hemoglobin Concent 31 g/dL (31-37) Red Cell Distribution Width 18.9 % (11.5-14.5) Platelet Count 260 x10^3/uL (140-400) Neutrophils (%) (Auto) 74 % (31-73) Lymphocytes (%) (Auto) 13 % (24-48) Monocytes (%) (Auto) 9 % (0-9) Eosinophils (%) (Auto) 4 % (0-3) Basophils (%) (Auto) 1 % (0-3) Neutrophils # (Auto) 5.6 x10^3/uL (1.8-7.7) Lymphocytes # (Auto) 1.0 x10^3/uL (1.0-4.8) Monocytes # (Auto) 0.7 x10^3/uL (0.0-1.1) Eosinophils # (Auto) 0.3 x10^3/uL (0.0-0.7) Basophils # (Auto) 0.1 x10^3/uL (0.0-0.2) Sodium Level 143 mmol/L (136-145) Potassium Level 3.6 mmol/L (3.5-5.1) Chloride Level 100 mmol/L (98-107) Carbon Dioxide Level 38 mmol/L (21-32) Anion Gap 5 (6-14) Blood Urea Nitrogen 22 mg/dL (7-20) Creatinine 1.4 mg/dL (0.6-1.0) Estimated GFR (Cockcroft-Gault) 36.4 Glucose Level 132 mg/dL (70-99) Calcium Level 9.0 mg/dL (8.5-10.1) Magnesium Level 2.0 mg/dL (1.8-2.4) Glucose (Fingerstick) 138 mg/dL (70-99) Laboratory Tests Test 07/02/20 12:11 07/02/20 17:06 07/02/20 20:43 07/03/20 03:29 Glucose (Fingerstick) 108 mg/dL (70-99) 196 mg/dL (70-99) 176 mg/dL (70-99) White Blood Count 7.6 x10^3/uL (4.0-11.0) Red Blood Count 3.88 x10^6/uL (3.50-5.40) Hemoglobin 10.1 g/dL (12.0-15.5) Hematocrit 32.6 % (36.0-47.0) Mean Corpuscular Volume 84 fL (79-100) Mean Corpuscular Hemoglobin 26 pg (25-35) Mean Corpuscular Hemoglobin Concent 31 g/dL (31-37) Red Cell Distribution Width 18.9 % (11.5-14.5) Platelet Count 260 x10^3/uL (140-400) Neutrophils (%) (Auto) 74 % (31-73) Lymphocytes (%) (Auto) 13 % (24-48) Monocytes (%) (Auto) 9 % (0-9) Eosinophils (%) (Auto) 4 % (0-3) Basophils (%) (Auto) 1 % (0-3) Neutrophils # (Auto) 5.6 x10^3/uL (1.8-7.7) Lymphocytes # (Auto) 1.0 x10^3/uL (1.0-4.8) Monocytes # (Auto) 0.7 x10^3/uL (0.0-1.1) Eosinophils # (Auto) 0.3 x10^3/uL (0.0-0.7) Basophils # (Auto) 0.1 x10^3/uL (0.0-0.2) Sodium Level 143 mmol/L (136-145) Potassium Level 3.6 mmol/L (3.5-5.1) Chloride Level 100 mmol/L (98-107) Carbon Dioxide Level 38 mmol/L (21-32) Anion Gap 5 (6-14) Blood Urea Nitrogen 22 mg/dL (7-20) Creatinine 1.4 mg/dL (0.6-1.0) Estimated GFR (Cockcroft-Gault) 36.4 Glucose Level 132 mg/dL (70-99) Calcium Level 9.0 mg/dL (8.5-10.1) Magnesium Level 2.0 mg/dL (1.8-2.4) Test 07/03/20 07:39 Glucose (Fingerstick) 138 mg/dL (70-99) Microbiology 06/29/20 Blood Culture - Preliminary, Resulted NO GROWTH AFTER 3 DAYS Medications Current Medications Vancomycin HCl (Vanco Per Pharmacy) 1 each PRN DAILY PRN MC SEE COMMENTS; Start 06/29/20 at 12:45; Stop 06/29/20 at 15:36; Status DC Vancomycin HCl 2 gm/Sodium Chloride 500 ml @ 250 mls/hr 1X ONCE IV Last administered on 06/29/20at 13:48; Start 06/29/20 at 13:00; Stop 06/29/20 at 14:59; Status DC Sodium Chloride 1,000 ml @ 250 mls/hr 1X ONCE IV Last administered on 06/29/20at 13:47; Start 06/29/20 at 13:30; Stop 06/29/20 at 15:36; Status DC Atorvastatin Calcium (Lipitor) 40 mg QHS PO Last administered on 07/02/20at 20:51; Start 06/29/20 at 21:00 Furosemide (Lasix) 40 mg [id number] IVP Last administered on 07/03/20at 08:29; Start 06/29/20 at 16:00 Acetaminophen (Tylenol) 650 mg PRN Q6HRS PRN PO MILD PAIN / TEMP > 100.3'F; Start 06/29/20 at 15:30 Allopurinol (Zyloprim) 100 mg DAILY PO Last administered on 07/03/20at 08:28; Start 06/30/20 at 09:00 Aspirin (Aspirin Chewable) 81 mg [id number] PO Last administered on 07/03/20at 08:27; Start 06/30/20 at 08:00 Ferrous Sulfate (Feosol) 325 mg QODAY PO ; Start 07/01/20 at 09:00 Insulin Glargine (Lantus Syringe) 14 unit QHS SQ Last administered on 06/29/20 21:42; Start 06/29/20 at 21:00; Stop 06/30/20 at 11:12; Status DC Insulin Human Lispro (HumaLOG) 6 units TIDAC SQ Last administered on 06/30/20 08:43; Start 06/29/20 at 16:30; Stop 06/30/20 at 11:12; Status DC Levothyroxine Sodium (Synthroid) 150 mcg DAILY06 PO Last administered on 07/03/20 05:36; Start 06/30/20 at 06:00 Metoprolol Succinate (Toprol Xl) 50 mg DAILY PO Last administered on 07/03/20 08:27; Start 06/30/20 at 09:00 Potassium Chloride (Klor-Con) 20 meq DAILYWBKFT PO Last administered on 06/30/20at 08:24; Start 06/30/20 at 08:00; Stop 06/30/20 at 11:12; Status DC Senna/Docusate Sodium (Senna Plus) 2 tab QHS PO Last administered on 07/02/20at 20:52; Start 06/29/20 at 21:00 Amlodipine Besylate (Norvasc) 5 mg DAILY PO Last administered on 07/03/20 08:28; Start 06/30/20 at 09:00 Linezolid/Dextrose 300 ml @ 300 mls/hr Q12HR IV Last administered on 07/02/20at 09:07; Start 06/29/20 at 21:00; Stop 07/02/20 at 10:24; Status DC Meropenem 500 mg/ Sodium Chloride 50 ml @ 100 mls/hr Q8HRS IV Last administered on 07/02/20 05:31; Start 06/29/20 at 16:00; Stop 07/02/20 at 10:23; Status DC Heparin Sodium (Porcine) (Heparin Sodium) 5,000 unit Q12HR SQ Last administered on 07/03/20at 08:38; Start 06/29/20 at 21:00 Lorazepam (Ativan) 0.25 mg 1X ONCE PO Last administered on 06/30/20at 00:16; Start 06/30/20 at 00:30; Stop 06/30/20 at 00:31; Status DC Paroxetine HCl (Paxil) 10 mg DAILY PO Last administered on 07/03/20 08:27; Start 06/30/20 at 00:30 Lactobacillus Rhamnosus (Culturelle) 1 cap BID PO Last administered on 08:28; Start 06/30/20 at 21:00 Insulin Glargine (Lantus Syringe) 18 unit QHS SQ Last administered on 07/02/20 20:46; Start 06/30/20 at 21:00 Insulin Human Lispro (HumaLOG) 8 units TIDAC SQ Last administered on 07/03/20 08:39; Start 06/30/20 at 11:30 Potassium Chloride (Klor-Con) 20 meq BIDWMEALS PO Last administered on 07/02/20 08:57; Start 06/30/20 at 12:00; Stop 07/02/20 at 10:42; Status DC Metolazone (Zaroxolyn) 5 mg 1X ONCE PO Last administered on 06/30/20 12:28; Start 06/30/20 at 11:15; Stop 06/30/20 at 11:23; Status DC Metolazone (Zaroxolyn) 5 mg 1X ONCE PO Last administered on 07/01/20 10:40; Start 07/01/20 at 10:30; Stop 07/01/20 at 10:31; Status DC Multivitamins (Thera M Plus) 1 tab DAILY PO Last administered on 07/03/20 08 :27; Start 07/01/20 at 15:00 Ascorbic Acid (Vitamin C) 500 mg DAILY PO Last administered on 07/03/20 08:27; Start 07/01/20 at 15:00 Lorazepam (Ativan) 0.25 mg PRN QHS PRN PO anxiety/insomnia Last administered on 07/02/20 20:52; Start 07/01/20 at 20:30 Ceftriaxone Sodium (Rocephin) 2 gm Q24H IVP Last administered on 07/02/20 11:45; Start 07/02/20 at 11:00 Potassium Chloride (Klor-Con) 20 meq TIDWMEALS PO Last administered on 4/28/21at 08:27; Start 07/02/20 at 12:00 Lactulose (Lactulose) 20 gm Q2H PO Last administered on 07/02/20at 14:46; Start 07/02/20 at 11:00; Stop 07/02/20 at 13:01; Status DC Metolazone (Zaroxolyn) 5 mg 1X ONCE PO Last administered on 07/02/20at 11:45; Start 07/02/20 at 11:30; Stop 07/02/20 at 11:31; Status DC Active Scripts Active Furosemide 40 Mg Tablet 40 Mg PO BID Amlodipine Besylate 5 Mg Tablet 5 Mg PO DAILY Atorvastatin Calcium 40 Mg Tablet 40 Mg PO QHS Admelog (Insulin Lispro) 100 Unit/1 Ml Vial 6 Units SQ TIDAC hold if blood sugar less than 90 before a meal Lantus (Insulin Glargine,Hum.rec.anlog) 100 Unit/1 Ml Vial 14 Unit SQ QHS Klor-Con M20 (Potassium Chloride) 20 Meq Tab.er.prt 20 Meq PO DAILY Nyamyc (Nystatin) 15 Gm Powder 1 Renee TP BID Stool Soft-Stimulant Lax Tab (Sennosides/Docusate Sodium) 1 Each Tablet 2 Tab PO DAILY Metoprolol Tartrate 25 Mg Tablet 25 Mg PO BID Feosol (Ferrous Sulfate) 325 Mg Tablet 325 Mg PO QODAY Synthroid (Levothyroxine Sodium) 150 Mcg Tablet 150 Mcg PO DAILY06 Allopurinol 100 Mg Tablet 100 Mg PO DAILY Paroxetine Hcl 20 Mg Tablet 20 Mg PO DAILY Reported Aspirin 81 Mg Tab.chew 81 Mg PO HS Tylenol (Acetaminophen) 325 Mg Tablet 650 Mg PO PRN Q4HRS Vitals/I & O Vital Sign - Last 24 Hours 07/02/20 07/02/20 07/02/20 07/02/20 11:00 15:00 19:25 20:00 Temp 96.1 98.4 98.1 96.1 98.4 98.1 Pulse 70 66 69 Resp 18 16 20 B/P (MAP) 122/52 (75) 128/56 (80) 124/58 (80) Pulse Ox 97 97 99 O2 Delivery Nasal Cannula Nasal Cannula Nasal Cannula Nasal Cannula O2 Flow Rate 2.0 2.0 2.0 07/02/20 07/02/20 07/03/20 07/03/20 23:00 23:05 03:50 07:00 Temp 98.1 97.9 97.9 98.1 97.9 97.9 Pulse 63 64 73 Resp 22 20 22 B/P (MAP) 128/65 (86) 111/57 (75) 150/63 (92) Pulse Ox 83 97 96 95 O2 Delivery Room Air Nasal Cannula Nasal Cannula Nasal Cannula O2 Flow Rate 2.0 2.0 2.0 07/03/20 07/03/20 08:27 08:28 Pulse 70 70 B/P (MAP) 150/63 150/63 Intake and Output 07/02/20 07/02/20 07/03/20 15:00 23:00 07:00 Intake Total 660 ml 200 ml 320 ml Output Total 900 ml 1300 ml 1400 ml Balance -240 ml -1100 ml -1080 ml Justifications for Admission Other Justification TERE ALLISON MD Jul 03, 2020 10:11
[2020-07-03] MEDS ORDERED: POTASSIUM CHLORIDE 20 MEQ TABLET.ER. PO ONE (10:30)
[2020-07-03] MEDS: cefTRIAXone IV Push 2 GM VIAL. IVP SCH (10:55)
--- NOTE | 2020-07-03 10:55 | PDOC ---
PULMONARY PROGRESS NOTES DATE: 07/03/20 TIME: 10:54 Subjective no increased SOA or cough pt. remains on 3 liters NC wore BIPAP most of last night no overnight concerns, no SOB or increased cough Vitals Vital Signs Date Time Temp Pulse Resp B/P (MAP) Pulse Ox O2 Delivery O2 Flow Rate FiO2 07/03/20 08:28 70 150/63 07/03/20 08:00 Nasal Cannula 3.0 07/03/20 07:00 97.9 22 95 97.9 ROS: No Nausea, No Chest Pain, No Abdominal Pain, No Increase Cough General: Alert Lungs: Clear Cardiovascular: S1, S2 Abdomen: Soft, Non-tender, Other (obese ) Extremities: Other (left prosthesis, right edema) Skin: Other (right LE erythema and left BKA) Labs Laboratory Tests Test 07/01/20 11:21 07/01/20 17:03 07/01/20 20:04 07/02/20 04:50 Glucose (Fingerstick) 193 mg/dL (70-99) 169 mg/dL (70-99) 178 mg/dL (70-99) White Blood Count 8.2 x10^3/uL (4.0-11.0) Red Blood Count 3.74 x10^6/uL (3.50-5.40) Hemoglobin 9.7 g/dL (12.0-15.5) Hematocrit 31.5 % (36.0-47.0) Mean Corpuscular Volume 84 fL (79-100) Mean Corpuscular Hemoglobin 26 pg (25-35) Mean Corpuscular Hemoglobin Concent 31 g/dL (31-37) Red Cell Distribution Width 18.6 % (11.5-14.5) Platelet Count 243 x10^3/uL (140-400) Neutrophils (%) (Auto) 72 % (31-73) Lymphocytes (%) (Auto) 14 % (24-48) Monocytes (%) (Auto) 9 % (0-9) Eosinophils (%) (Auto) 4 % (0-3) Basophils (%) (Auto) 1 % (0-3) Neutrophils # (Auto) 5.9 x10^3/uL (1.8-7.7) Lymphocytes # (Auto) 1.2 x10^3/uL (1.0-4.8) Monocytes # (Auto) 0.7 x10^3/uL (0.0-1.1) Eosinophils # (Auto) 0.4 x10^3/uL (0.0-0.7) Basophils # (Auto) 0.1 x10^3/uL (0.0-0.2) Sodium Level 144 mmol/L (136-145) Potassium Level 3.7 mmol/L (3.5-5.1) Chloride Level 100 mmol/L (98-107) Carbon Dioxide Level 40 mmol/L (21-32) Anion Gap 4 (6-14) Blood Urea Nitrogen 22 mg/dL (7-20) Creatinine 1.3 mg/dL (0.6-1.0) Estimated GFR (Cockcroft-Gault) 39.6 Glucose Level 126 mg/dL (70-99) Calcium Level 8.7 mg/dL (8.5-10.1) Magnesium Level 2.0 mg/dL (1.8-2.4) Test 07/02/20 07:38 07/02/20 12:11 07/02/20 17:06 07/02/20 20:43 Glucose (Fingerstick) 123 mg/dL (70-99) 108 mg/dL (70-99) 196 mg/dL (70-99) 176 mg/dL (70-99) Test 07/03/20 03:29 07/03/20 07:39 White Blood Count 7.6 x10^3/uL (4.0-11.0) Red Blood Count 3.88 x10^6/uL (3.50-5.40) Hemoglobin 10.1 g/dL (12.0-15.5) Hematocrit 32.6 % (36.0-47.0) Mean Corpuscular Volume 84 fL (79-100) Mean Corpuscular Hemoglobin 26 pg (25-35) Mean Corpuscular Hemoglobin Concent 31 g/dL (31-37) Red Cell Distribution Width 18.9 % (11.5-14.5) Platelet Count 260 x10^3/uL (140-400) Neutrophils (%) (Auto) 74 % (31-73) Lymphocytes (%) (Auto) 13 % (24-48) Monocytes (%) (Auto) 9 % (0-9) Eosinophils (%) (Auto) 4 % (0-3) Basophils (%) (Auto) 1 % (0-3) Neutrophils # (Auto) 5.6 x10^3/uL (1.8-7.7) Lymphocytes # (Auto) 1.0 x10^3/uL (1.0-4.8) Monocytes # (Auto) 0.7 x10^3/uL (0.0-1.1) Eosinophils # (Auto) 0.3 x10^3/uL (0.0-0.7) Basophils # (Auto) 0.1 x10^3/uL (0.0-0.2) Sodium Level 143 mmol/L (136-145) Potassium Level 3.6 mmol/L (3.5-5.1) Chloride Level 100 mmol/L (98-107) Carbon Dioxide Level 38 mmol/L (21-32) Anion Gap 5 (6-14) Blood Urea Nitrogen 22 mg/dL (7-20) Creatinine 1.4 mg/dL (0.6-1.0) Estimated GFR (Cockcroft-Gault) 36.4 Glucose Level 132 mg/dL (70-99) Calcium Level 9.0 mg/dL (8.5-10.1) Magnesium Level 2.0 mg/dL (1.8-2.4) Glucose (Fingerstick) 138 mg/dL (70-99) Laboratory Tests Test 07/02/20 12:11 07/02/20 17:06 07/02/20 20:43 07/03/20 03:29 Glucose (Fingerstick) 108 mg/dL (70-99) 196 mg/dL (70-99) 176 mg/dL (70-99) White Blood Count 7.6 x10^3/uL (4.0-11.0) Red Blood Count 3.88 x10^6/uL (3.50-5.40) Hemoglobin 10.1 g/dL (12.0-15.5) Hematocrit 32.6 % (36.0-47.0) Mean Corpuscular Volume 84 fL (79-100) Mean Corpuscular Hemoglobin 26 pg (25-35) Mean Corpuscular Hemoglobin Concent 31 g/dL (31-37) Red Cell Distribution Width 18.9 % (11.5-14.5) Platelet Count 260 x10^3/uL (140-400) Neutrophils (%) (Auto) 74 % (31-73) Lymphocytes (%) (Auto) 13 % (24-48) Monocytes (%) (Auto) 9 % (0-9) Eosinophils (%) (Auto) 4 % (0-3) Basophils (%) (Auto) 1 % (0-3) Neutrophils # (Auto) 5.6 x10^3/uL (1.8-7.7) Lymphocytes # (Auto) 1.0 x10^3/uL (1.0-4.8) Monocytes # (Auto) 0.7 x10^3/uL (0.0-1.1) Eosinophils # (Auto) 0.3 x10^3/uL (0.0-0.7) Basophils # (Auto) 0.1 x10^3/uL (0.0-0.2) Sodium Level 143 mmol/L (136-145) Potassium Level 3.6 mmol/L (3.5-5.1) Chloride Level 100 mmol/L (98-107) Carbon Dioxide Level 38 mmol/L (21-32) Anion Gap 5 (6-14) Blood Urea Nitrogen 22 mg/dL (7-20) Creatinine 1.4 mg/dL (0.6-1.0) Estimated GFR (Cockcroft-Gault) 36.4 Glucose Level 132 mg/dL (70-99) Calcium Level 9.0 mg/dL (8.5-10.1) Magnesium Level 2.0 mg/dL (1.8-2.4) Test 07/03/20 07:39 Glucose (Fingerstick) 138 mg/dL (70-99) Medications Active Scripts Medications Dose Route/Sig Max Daily Dose Days Date Category Dose Instructions Furosemide 40 Mg Tablet 40 Mg PO BID 06/12/20 Rx Amlodipine Besylate 5 Mg Tablet 5 Mg PO DAILY 06/12/20 Rx Atorvastatin Calcium 40 Mg Tablet 40 Mg PO QHS 06/12/20 Rx Admelog (Insulin Lispro) 100 Unit/1 Ml Vial 6 Units SQ TIDAC 06/04/20 Rx hold if blood sugar less than 90 before a meal Lantus (Insulin Glargine,Hum.rec.anlog) 100 Unit/1 Ml Vial 14 Unit SQ QHS 06/04/20 Rx Klor-Con M20 (Potassium Chloride) 20 Meq Tab.er.prt 20 Meq PO DAILY 06/04/20 Rx Nyamyc (Nystatin) 15 Gm Powder 1 Renee TP BID 05/12/20 Rx Stool Soft-Stimulant Lax Tab (Sennosides/Docusate Sodium) 1 Each Tablet 2 Tab PO DAILY 05/12/20 Rx Metoprolol Tartrate 25 Mg Tablet 25 Mg PO BID 05/12/20 Rx Feosol (Ferrous Sulfate) 325 Mg Tablet 325 Mg PO QODAY 05/12/20 Rx Aspirin 81 Mg Tab.chew 81 Mg PO HS 05/03/20 Reported Synthroid (Levothyroxine Sodium) 150 Mcg Tablet 150 Mcg PO DAILY06 05/21/19 Rx Allopurinol 100 Mg Tablet 100 Mg PO DAILY 05/21/19 Rx Paroxetine Hcl 20 Mg Tablet 20 Mg PO DAILY 05/21/19 Rx Tylenol (Acetaminophen) 325 Mg Tablet 650 Mg PO PRN Q4HRS 05/19/13 Reported Comments CXR- mild CHF Impression . ASSESSMENT: 1. Acute on chronic respiratory failure secondary to acute diastolic congestive heart failure, inadequately treated obstructive sleep apnea/hypopnea syndrome and obesity hypoventilation syndrome.-- improved 2. Abnormal chest x-ray. 3. Acute diastolic congestive heart failure. 4. Obstructive sleep apnea/hypopnea syndrome and obesity hypoventilation syndrome. 5. Chronic kidney disease. 6. Diabetes mellitus. 7. Hypertension. 8. Right lower extremity cellulitis. 9. Coronary artery disease. 10. Peripheral arterial disease, status post left below-knee amputation. 11. Recent right groin hematoma. 12. History of nonsustained ventricular tachycardia. Plan . PLAN Titrate FIO2 to keep O2 saturation 90%.currently on 3 liters NC , pt. respiratory status is stable Continue CPAP at night and with napping Continue lasix-- transition to po and cardiology recs -- EF 55% in 05/2020 and PAP 47 Follow ID recs for ABX Monitor renal function DM per IM PT/OT DVT/GI PPX BILL BHANDARI MD Jul 03, 2020 10:55
[2020-07-03 11:00] VITALS: BP 135/61
--- NOTE | 2020-07-03 11:57 | NUR ---
SS following up with discharge planning. SS reviewed pt chart and discussed with pt RN. Pt is currently requiring oxygen at three liters nasal canula. Pt has home oxygen. SS spoke with pt's son, Rajan, , and discussed discharge planning. Pt son reported that he found an apartment for pt and pt's spouse at [facility], [address] [place] [address], [facility], . Pt's son reported that pt and spouse can move in on 07/06/2020. Pt's son requesting hospice services at this time. SS met with pt and pt's spouse in room and discussed. Pt and pt's spouse agreeable to moving to the apartment. Pt and pt's spouse agreeable to home with hospice with no preference of company. SS phoned and faxed referral to [facility], ; fax [phone]. Pt's son notified. SS will continue to follow for discharge planning.
--- NOTE | 2020-07-03 12:15 | PDOC ---
RANDY TRIVEDI TURNER MACHINE 07/03/20 1215: CARDIO Progress Notes Date and Time Date of Service 07/03/2020 Time of Evaluation 1150 Subjective Subjective: No Chest Pain, No shortness of breath, No Palpitations Vitals Vitals Vital Signs Date Time Temp Pulse Resp B/P (MAP) Pulse Ox O2 Delivery O2 Flow Rate FiO2 07/03/20 08:28 70 150/63 07/03/20 08:00 Nasal Cannula 3.0 07/03/20 07:00 97.9 22 95 97.9 Weight Weight [ ] Input and Output Intake and Output Intake and Output 07/03/20 07:00 Intake Total 1180 ml Output Total 3600 ml Balance -2420 ml Intake Oral 1180 ml Output Urine Total 3600 ml Laboratory Labs Laboratory Tests Test 07/02/20 12:11 07/02/20 17:06 07/02/20 20:43 07/03/20 03:29 Glucose (Fingerstick) 108 mg/dL (70-99) 196 mg/dL (70-99) 176 mg/dL (70-99) White Blood Count 7.6 x10^3/uL (4.0-11.0) Red Blood Count 3.88 x10^6/uL (3.50-5.40) Hemoglobin 10.1 g/dL (12.0-15.5) Hematocrit 32.6 % (36.0-47.0) Mean Corpuscular Volume 84 fL (79-100) Mean Corpuscular Hemoglobin 26 pg (25-35) Mean Corpuscular Hemoglobin Concent 31 g/dL (31-37) Red Cell Distribution Width 18.9 % (11.5-14.5) Platelet Count 260 x10^3/uL (140-400) Neutrophils (%) (Auto) 74 % (31-73) Lymphocytes (%) (Auto) 13 % (24-48) Monocytes (%) (Auto) 9 % (0-9) Eosinophils (%) (Auto) 4 % (0-3) Basophils (%) (Auto) 1 % (0-3) Neutrophils # (Auto) 5.6 x10^3/uL (1.8-7.7) Lymphocytes # (Auto) 1.0 x10^3/uL (1.0-4.8) Monocytes # (Auto) 0.7 x10^3/uL (0.0-1.1) Eosinophils # (Auto) 0.3 x10^3/uL (0.0-0.7) Basophils # (Auto) 0.1 x10^3/uL (0.0-0.2) Sodium Level 143 mmol/L (136-145) Potassium Level 3.6 mmol/L (3.5-5.1) Chloride Level 100 mmol/L (98-107) Carbon Dioxide Level 38 mmol/L (21-32) Anion Gap 5 (6-14) Blood Urea Nitrogen 22 mg/dL (7-20) Creatinine 1.4 mg/dL (0.6-1.0) Estimated GFR (Cockcroft-Gault) 36.4 Glucose Level 132 mg/dL (70-99) Calcium Level 9.0 mg/dL (8.5-10.1) Magnesium Level 2.0 mg/dL (1.8-2.4) Test 07/03/20 07:39 Glucose (Fingerstick) 138 mg/dL (70-99) Microbiology Micro Microbiology 06/29/20 Blood Culture - Preliminary, Resulted NO GROWTH AFTER 3 DAYS Physical Exam HEENT: Neck Supple W Full Motion Chest: Symmetric LUNGS: Other (diminished bases) Heart: RRR (SR) Abdomen: Soft N/T Extremities: Other (right LE erythema, edema and left BKA) Neurology: alert, oriented, follow commands Assessment Assessment 1. Acute on chronic respiratory failure; multifactorial with a/c CHF, untreated LULI, pulmHTN, and probable obesity-hypoventilation syndrome 2. Acute on chronic diastolic CHF; recent echo with preserved LV systolic function. compensated 3. CAD; recent cath in May 2020 showed 60% stenosis involving LAD with negative IFR and 100% LABORER BITUMINOUS PAVING involving moderate caliber obtuse marginal branch of left circumflex artery with left to left collaterals, being managed medically. 4. CKD; Cr stable at 1.4 5. Hypertension: controlled 6. Hyperlipidemia: statin 7. Hypothyroidism: Continue levothyroxine 8. Diabetes, II 9. PAD s/p left BKA 10. Right groin hematoma post Angio-Seal failure after cardiac cath last month. stable 11. RLE cellulitis; antibiotics as per IM 12. PAFIB: new. maintaining SR Recommendations Excellent UOP, down 6KG, diuresis with Lasix transition to PO, metolazone. Monitor renal function Secondary prevention including ASA, statin RLE elevation. Bipap HS Continue toprol. MCOT for at least 2 weeks and will note AFIB burden and reevaluate need for any anticoagulation. ASA for now. Supportive care Justicifation of Admission Dx: Justifications for Admission: Justification of Admission Dx: N/A JAY SMYTH MD 07/04/20 1253: CARDIO Progress Notes Assessment Assessment Patient seen and examined 07/03/20 (late entry). Agree with FLOOR LAYER APPRENTICE's assessment and plan. Acute on chronic diastolic HF improving with diuresis with lasix and metolazone CAD and PAD status clinically stable Recent echo showed normal LVF Plan for outpatient event monitor to assess AF burden RANDY TRIVEDI TURNER MACHINE Jul 03, 2020 12:15 JAY SMYTH MD Jul 04, 2020 12:53
[2020-07-03] MEDS: metOLazone 2.5 MG TABLET PO SCH (12:32)
[2020-07-03 15:00] VITALS: BP 128/57
[2020-07-03] MEDS: FUROSEMIDE 40 MG TABLET. PO SCH (18:05)
[2020-07-03 19:20] VITALS: BP 108/46
[2020-07-03] MEDS: ATORVASTATIN CALCIUM 40 MG TABLET. PO SCH (21:02)
[2020-07-03] MEDS: SENNOSIDES/DOCUSATE 8.6/50MG TABLET. PO SCH (21:02)
[2020-07-03] MEDS: INSULIN GLARGINE SYRINGE. SQ SCH (21:03)
[2020-07-03 23:04] VITALS: BP 127/51
[2020-07-03] MEDS: LORazepam 0.5 MG TABLET PO PRN (23:51)
[2020-07-04 03:22] VITALS: BP 123/54
[2020-07-04 04:52] LABS: CALCIUM 8.6 mg/dL (8.5-10.1); CREATININE 1.4 mg/dL (0.6-1.0); GFR 36.4; MAGNESIUM 2.1 mg/dL (1.8-2.4); POTASSIUM 4.2 mmol/L (3.5-5.1)
[2020-07-04] MEDS: LEVOTHYROXINE 150 MCG TABLET PO SCH (04:58)
[2020-07-04] MEDS: FUROSEMIDE 40 MG TABLET. PO SCH ×2 (04:58→17:13)
[2020-07-04 07:00] VITALS: BP 148/60
[2020-07-04] MEDS: INSULIN LISPRO 300 UNITS/3 ML VIAL. SQ SCH ×2 (07:30→17:19)
[2020-07-04] MEDS: PARoxetine 10 MG TABLET PO SCH (09:10)
[2020-07-04] MEDS: MULTIVITAMIN with MINERAL TABLET. PO SCH (09:10)
[2020-07-04] MEDS: ASPIRIN CHEWABLE 81 MG TABLET. PO SCH (09:10)
[2020-07-04] MEDS: ASCORBIC ACID 500 MG TABLET PO SCH (09:11)
[2020-07-04] MEDS: POTASSIUM CHLORIDE 20 MEQ TABLET.ER. PO SCH ×2 (09:11→21:08)
[2020-07-04] MEDS: METOPROLOL SUCC 24HR ER 50 MG TAB.ER.24H. PO SCH (09:11)
[2020-07-04] MEDS: ALLOPURINOL 100 MG TABLET. PO SCH (09:11)
[2020-07-04] MEDS: LACTOBACILLUS RHAMNOSUS GG 1 CAPSULE. PO SCH ×2 (09:11→21:09)
[2020-07-04] MEDS: HEPARIN for SUB-Q USE 5,000 UNIT/ML VIAL. SQ SCH ×2 (09:17→21:19)
--- NOTE | 2020-07-04 10:00 | NUR ---
Wound Care Pt had R leg Arterial U/S on 05/31/20 s/p cardiac cath, showing monophasic waveforms throughout the RLE. Spoke with Cardiology SAND AND GRAVEL PLANT OPERATOR, Julissa Snow re: findings and RLE wound. Julissa stated she would f/u with Dr. Powers.
--- NOTE | 2020-07-04 10:00 | PDOC ---
Infectious Disease Note Subjective: Subjective Patient is resting quietly at bedside Remains on nasal O2 Vital Signs: Vital Signs Vital Signs Date Time Temp Pulse Resp B/P (MAP) Pulse Ox O2 Delivery O2 Flow Rate FiO2 07/04/20 09:11 67 148/60 07/04/20 07:14 Nasal Cannula 3.0 07/04/20 07:00 98.4 18 98 98.4 Physical Exam: PHYSICAL EXAM GENERAL: Patient is resting quietly in no acute distress HEENT: Normal conjunctivae. Oropharynx pink and moist. No lesions seen. NECK: Supple. LUNGS: Clear to auscultation. No accessory muscle use. HEART: S1 and S2. ABDOMEN: Obese, soft, nontender with bowel sounds present. GENITOURINARY: Indwelling Cifuentes in place. EXTREMITIES: Left BKA prosthesis in place. Right lower extremity dressing in place not taken Swelling erythema right thigh and foot has improved SKIN: Warm to touch. No signs of rash. NEUROLOGIC: Alert and answering questions appropriately. PERIPHERAL IV: Looks okay. Medications: Inpatient Meds: Medications reviewed. Labs: Lab Laboratory Tests Test 07/03/20 12:06 07/03/20 17:08 07/03/20 21:38 07/04/20 04:12 Glucose (Fingerstick) 134 mg/dL (70-99) 121 mg/dL (70-99) 143 mg/dL (70-99) Sodium Level 142 mmol/L (136-145) Potassium Level 4.2 mmol/L (3.5-5.1) Chloride Level 101 mmol/L (98-107) Carbon Dioxide Level 41 mmol/L (21-32) Anion Gap 0 (6-14) Blood Urea Nitrogen 26 mg/dL (7-20) Creatinine 1.4 mg/dL (0.6-1.0) Estimated GFR (Cockcroft-Gault) 36.4 Glucose Level 84 mg/dL (70-99) Calcium Level 8.6 mg/dL (8.5-10.1) Magnesium Level 2.1 mg/dL (1.8-2.4) Test 07/04/20 07:39 07/04/20 07:56 Glucose (Fingerstick) 63 mg/dL (70-99) 77 mg/dL (70-99) Objective: Assessment: 1. Recurrent cellulitis, right lower extremity. 2. Mild bibasilar infiltrates. 3. Type 2 diabetes mellitus with peripheral neuropathy. 4. Chronic kidney disease. 5. Peripheral arterial disease. 6. Obesity. 7. Cat exposure. 8. History of methicillin-resistant Staphylococcus aureus and extended spectrum beta-lactamase. 9. Acute on chronic diastolic congestive heart failure. 10. Chronic respiratory failure on home O2 at 2 L Plan: Plan of Care Continue ceftriaxone Encouraged leg elevation Local wound care Monitor labs and cultures Discussed with at bedside LADARIUS VENTURA MD Jul 04, 2020 10:00
[2020-07-04 11:00] VITALS: BP 125/47
--- NOTE | 2020-07-04 11:32 | PDOC ---
PULMONARY PROGRESS NOTES DATE: 07/04/20 TIME: 11:31 Subjective no increased SOA or cough pt. remains on 3 liters NC no overnight concerns, no SOB or increased cough Vitals Vital Signs Date Time Temp Pulse Resp B/P (MAP) Pulse Ox O2 Delivery O2 Flow Rate FiO2 07/04/20 09:11 67 148/60 07/04/20 07:14 Nasal Cannula 3.0 07/04/20 07:00 98.4 18 98 98.4 ROS: No Nausea, No Chest Pain, No Abdominal Pain, No Increase Cough General: Alert, Oriented X4 Lungs: Clear Cardiovascular: S1, S2 Abdomen: Soft, Non-tender, Other (obese ) Extremities: Other (left prosthesis, right edema) Skin: Other (right LE erythema and left BKA) Labs Laboratory Tests Test 07/02/20 12:11 07/02/20 17:06 07/02/20 20:43 07/03/20 03:29 Glucose (Fingerstick) 108 mg/dL (70-99) 196 mg/dL (70-99) 176 mg/dL (70-99) White Blood Count 7.6 x10^3/uL (4.0-11.0) Red Blood Count 3.88 x10^6/uL (3.50-5.40) Hemoglobin 10.1 g/dL (12.0-15.5) Hematocrit 32.6 % (36.0-47.0) Mean Corpuscular Volume 84 fL (79-100) Mean Corpuscular Hemoglobin 26 pg (25-35) Mean Corpuscular Hemoglobin Concent 31 g/dL (31-37) Red Cell Distribution Width 18.9 % (11.5-14.5) Platelet Count 260 x10^3/uL (140-400) Neutrophils (%) (Auto) 74 % (31-73) Lymphocytes (%) (Auto) 13 % (24-48) Monocytes (%) (Auto) 9 % (0-9) Eosinophils (%) (Auto) 4 % (0-3) Basophils (%) (Auto) 1 % (0-3) Neutrophils # (Auto) 5.6 x10^3/uL (1.8-7.7) Lymphocytes # (Auto) 1.0 x10^3/uL (1.0-4.8) Monocytes # (Auto) 0.7 x10^3/uL (0.0-1.1) Eosinophils # (Auto) 0.3 x10^3/uL (0.0-0.7) Basophils # (Auto) 0.1 x10^3/uL (0.0-0.2) Sodium Level 143 mmol/L (136-145) Potassium Level 3.6 mmol/L (3.5-5.1) Chloride Level 100 mmol/L (98-107) Carbon Dioxide Level 38 mmol/L (21-32) Anion Gap 5 (6-14) Blood Urea Nitrogen 22 mg/dL (7-20) Creatinine 1.4 mg/dL (0.6-1.0) Estimated GFR (Cockcroft-Gault) 36.4 Glucose Level 132 mg/dL (70-99) Calcium Level 9.0 mg/dL (8.5-10.1) Magnesium Level 2.0 mg/dL (1.8-2.4) Test 07/03/20 07:39 07/03/20 12:06 07/03/20 17:08 07/03/20 21:38 Glucose (Fingerstick) 138 mg/dL (70-99) 134 mg/dL (70-99) 121 mg/dL (70-99) 143 mg/dL (70-99) Test 07/04/20 04:12 07/04/20 07:39 07/04/20 07:56 Sodium Level 142 mmol/L (136-145) Potassium Level 4.2 mmol/L (3.5-5.1) Chloride Level 101 mmol/L (98-107) Carbon Dioxide Level 41 mmol/L (21-32) Anion Gap 0 (6-14) Blood Urea Nitrogen 26 mg/dL (7-20) Creatinine 1.4 mg/dL (0.6-1.0) Estimated GFR (Cockcroft-Gault) 36.4 Glucose Level 84 mg/dL (70-99) Calcium Level 8.6 mg/dL (8.5-10.1) Magnesium Level 2.1 mg/dL (1.8-2.4) Glucose (Fingerstick) 63 mg/dL (70-99) 77 mg/dL (70-99) Laboratory Tests Test 07/03/20 12:06 07/03/20 17:08 07/03/20 21:38 07/04/20 04:12 Glucose (Fingerstick) 134 mg/dL (70-99) 121 mg/dL (70-99) 143 mg/dL (70-99) Sodium Level 142 mmol/L (136-145) Potassium Level 4.2 mmol/L (3.5-5.1) Chloride Level 101 mmol/L (98-107) Carbon Dioxide Level 41 mmol/L (21-32) Anion Gap 0 (6-14) Blood Urea Nitrogen 26 mg/dL (7-20) Creatinine 1.4 mg/dL (0.6-1.0) Estimated GFR (Cockcroft-Gault) 36.4 Glucose Level 84 mg/dL (70-99) Calcium Level 8.6 mg/dL (8.5-10.1) Magnesium Level 2.1 mg/dL (1.8-2.4) Test 07/04/20 07:39 07/04/20 07:56 Glucose (Fingerstick) 63 mg/dL (70-99) 77 mg/dL (70-99) Medications Active Scripts Medications Dose Route/Sig Max Daily Dose Days Date Category Dose Instructions Furosemide 40 Mg Tablet 40 Mg PO BID 06/12/20 Rx Amlodipine Besylate 5 Mg Tablet 5 Mg PO DAILY 06/12/20 Rx Atorvastatin Calcium 40 Mg Tablet 40 Mg PO QHS 06/12/20 Rx Admelog (Insulin Lispro) 100 Unit/1 Ml Vial 6 Units SQ TIDAC 06/04/20 Rx hold if blood sugar less than 90 before a meal Lantus (Insulin Glargine,Hum.rec.anlog) 100 Unit/1 Ml Vial 14 Unit SQ QHS 06/04/20 Rx Klor-Con M20 (Potassium Chloride) 20 Meq Tab.er.prt 20 Meq PO DAILY 06/04/20 Rx Nyamyc (Nystatin) 15 Gm Powder 1 Renee TP BID 05/12/20 Rx Stool Soft-Stimulant Lax Tab (Sennosides/Docusate Sodium) 1 Each Tablet 2 Tab PO DAILY 05/12/20 Rx Metoprolol Tartrate 25 Mg Tablet 25 Mg PO BID 05/12/20 Rx Feosol (Ferrous Sulfate) 325 Mg Tablet 325 Mg PO QODAY 05/12/20 Rx Aspirin 81 Mg Tab.chew 81 Mg PO HS 05/03/20 Reported Synthroid (Levothyroxine Sodium) 150 Mcg Tablet 150 Mcg PO DAILY06 05/21/19 Rx Allopurinol 100 Mg Tablet 100 Mg PO DAILY 05/21/19 Rx Paroxetine Hcl 20 Mg Tablet 20 Mg PO DAILY 05/21/19 Rx Tylenol (Acetaminophen) 325 Mg Tablet 650 Mg PO PRN Q4HRS 05/19/13 Reported Comments CXR- mild CHF Impression . ASSESSMENT: 1. Acute on chronic respiratory failure secondary to acute diastolic congestive heart failure, inadequately treated obstructive sleep apnea/hypopnea syndrome and obesity hypoventilation syndrome.-- improved 2. Abnormal chest x-ray. 3. Acute diastolic congestive heart failure. 4. Obstructive sleep apnea/hypopnea syndrome and obesity hypoventilation syndrome. 5. Chronic kidney disease. 6. Diabetes mellitus. 7. Hypertension. 8. Right lower extremity cellulitis. 9. Coronary artery disease. 10. Peripheral arterial disease, status post left below-knee amputation. 11. Recent right groin hematoma. 12. History of nonsustained ventricular tachycardia. Plan . PLAN Titrate FIO2 to keep O2 saturation 90%.currently on 3 liters NC , pt. respiratory status is stable Continue CPAP at night and with napping Continue lasix-- transition to po and cardiology recs -- EF 55% in 05/2020 and PAP 47 Follow ID recs for ABX Monitor renal function DM per IM PT/OT DVT/GI PPX we mac sign off at this time please call with questions or concerns BILL BHANDARI MD Jul 04, 2020 11:32
[2020-07-04] MEDS: cefTRIAXone IV Push 2 GM VIAL. IVP SCH (11:42)
--- NOTE | 2020-07-04 11:42 | PDOC ---
RANDY TRIVEDI PIPE ORGAN INSTALLER 07/04/20 1142: CARDIO Progress Notes Date and Time Date of Service 07/04/2020 Time of Evaluation 1120 Subjective Subjective: No Chest Pain, No shortness of breath, No Palpitations Vitals Vitals Vital Signs Date Time Temp Pulse Resp B/P (MAP) Pulse Ox O2 Delivery O2 Flow Rate FiO2 07/04/20 09:11 67 148/60 07/04/20 07:14 Nasal Cannula 3.0 07/04/20 07:00 98.4 18 98 98.4 Weight Weight [ ] Input and Output Intake and Output Intake and Output 07/04/20 07:00 Intake Total 960 ml Output Total 2350 ml Balance -1390 ml Intake Oral 960 ml Output Urine Total 2350 ml # Bowel Movements 1 Laboratory Labs Laboratory Tests Test 07/03/20 12:06 07/03/20 17:08 07/03/20 21:38 07/04/20 04:12 Glucose (Fingerstick) 134 mg/dL (70-99) 121 mg/dL (70-99) 143 mg/dL (70-99) Sodium Level 142 mmol/L (136-145) Potassium Level 4.2 mmol/L (3.5-5.1) Chloride Level 101 mmol/L (98-107) Carbon Dioxide Level 41 mmol/L (21-32) Anion Gap 0 (6-14) Blood Urea Nitrogen 26 mg/dL (7-20) Creatinine 1.4 mg/dL (0.6-1.0) Estimated GFR (Cockcroft-Gault) 36.4 Glucose Level 84 mg/dL (70-99) Calcium Level 8.6 mg/dL (8.5-10.1) Magnesium Level 2.1 mg/dL (1.8-2.4) Test 07/04/20 07:39 07/04/20 07:56 Glucose (Fingerstick) 63 mg/dL (70-99) 77 mg/dL (70-99) Microbiology Micro Microbiology 06/29/20 Blood Culture - Preliminary, Resulted NO GROWTH AFTER 4 DAYS Physical Exam HEENT: Neck Supple W Full Motion Chest: Symmetric LUNGS: Other (diminished bases) Heart: RRR (SR) Abdomen: Soft N/T Extremities: Other (right LE erythema, weeping edema, x2 small wound to right calf and left BKA; numbness to right foot, ADJUNCT MATHEMATICS INSTRUCTOR<3 sec. dopplerable right Pedal and PT) Neurology: alert, oriented, follow commands Assessment Assessment 1. Acute on chronic respiratory failure; multifactorial with a/c CHF, untreated LULI, pulmHTN, and probable obesity-hypoventilation syndrome 2. Acute on chronic diastolic CHF; recent echo with preserved LV systolic function. compensated 3. CAD; recent cath in May 2020 showed 60% stenosis involving LAD with negative IFR and 100% ASSISTANT RESEARCH SCIENTIST involving moderate caliber obtuse marginal branch of left circumflex artery with left to left collaterals, being managed medically. 4. CKD; Cr stable at 1.4 5. Hypertension: controlled 6. Hyperlipidemia: statin 7. Hypothyroidism: Continue levothyroxine 8. Diabetes, II 9. PAD s/p left BKA: monophasic arterial waveforms in the right arterial system per duplex on 05/31/2020 10. Right groin hematoma post Angio-Seal failure after cardiac cath last month. no hmeatoma noted on recent venous doppler. stable 11. RLE cellulitis; antibiotics as per IM 12. PAFIB: new. maintaining SR 13. Small right calf wounds Recommendations Continue lasix, metolazone. Monitor renal function Secondary prevention including ASA, statin RLE elevation. Bipap HS Continue toprol. MCOT for at least 2 weeks and will note AFIB burden and ree valuate need for any anticoagulation. ASA for now. Pt is set to be DC on Wednesday due to placement issue. Right pedal and PT are dopplerable, she is sedentary, I dont believe her wound is from arterial insufficiency, will discuss further with primary car dropper and note any further need of imaging or angiography as an outpt otherwise treat medically Supportive care Follow up on 08/14 2:30 PM Justicifation of Admission Dx: Justifications for Admission: Justification of Admission Dx: N/A JAY SMYTH MD 07/04/202056: CARDIO Progress Notes Assessment Assessment Patient seen and examined 07/03/20. Agree with GANG HEAD SAW OPERATOR's assessment and plan. Acute on chronic diastolic HF improving with diuresis with lasix and metolazone CAD clinically stable Recent echo showed normal LVF Plan for outpatient event monitor to assess AF burden We will consider aortogram as an outpatient for non healing wound and abnormal arterial duplex scan RANDY TRIVEDI APRN Jul 04, 2020 11:42 JAY SMYTH MD Jul 04, 2020 20:57
--- NOTE | 2020-07-04 12:07 | PDOC ---
PROGRESS NOTES Date of Service DATE: 07/04/20 TIME: 12:04 Subjective Subjective feels okay. had a good diuresis. lab reviewed. blood sugar low this morning and will decrease insulin. discussed with cardiology who order arterial dopper RLE and discussed with dialysis social worker . Objective Objective Vital Signs Date Time Temp Pulse Resp B/P (MAP) Pulse Ox O2 Delivery O2 Flow Rate FiO2 07/04/20 11:00 98.3 77 20 125/47 (73) 97 Nasal Cannula 3.0 98.3 Intake and Output 07/04/20 07:00 Intake Total 960 ml Output Total 2350 ml Balance -1390 ml Intake Oral 960 ml Output Urine Total 2350 ml # Bowel Movements 1 Physical Exam Abdomen: Soft, Other (obese) Heart: Regular rate, Normal S1, Normal S2 Extremities: Other (RLE wrap with some edema ) General: Alert HEENT: Atraumatic Lungs: Clear to auscultation Neuro: Normal speech Psych/Mental Status: Mental status NL Skin: No rashes Assessment Assessment Problems Cellulitis of the right leg. improving 2. Acute on chronic diastolic congestive heart failure manifested by crackles in the lungs, better 3. Acute on chronic hypoxic and hypercapnic respiratory failure. She notes increasing dyspnea on exertion with just short distances. 4. Diabetes mellitus type 2, on insulin with peripheral neuropathy and nephropathy. 5. Chronic kidney disease stage 3. 6. Chronic venous insufficiency of the lower extremity. 7. Anemia of chronic disease. 8. Moderate protein calorie malnutrition. 9. Hypertension. 10. Hyperlipidemia. 11. Morbid obesity. 12. Obstructive sleep apnea. 13. Nonobstructive coronary artery disease. 14. Left below-knee amputation with amputations of the second and third toes of the right foot. 15. Mild peripheral arterial disease. Medical Problems: (1) Cellulitis Status: Acute (2) CHF exacerbation Status: Acute Plan Plan of Care continue iv rocephin continue furosemide and metolazone decrease kcl decrease insulin arterial doppler RLE labs tomorrow anticipate dismissal 07/06 as her new apartment will be ready by then and not any earlier with hospice per dialysis social worker Comment Review of Relevant I have reviewed the following items helio (where applicable) has been applied. Labs Laboratory Tests Test 07/02/20 12:11 07/02/20 17:06 07/02/20 20:43 4/28/21 03:29 Glucose (Fingerstick) 108 mg/dL (70-99) 196 mg/dL (70-99) 176 mg/dL (70-99) White Blood Count 7.6 x10^3/uL (4.0-11.0) Red Blood Count 3.88 x10^6/uL (3.50-5.40) Hemoglobin 10.1 g/dL (12.0-15.5) Hematocrit 32.6 % (36.0-47.0) Mean Corpuscular Volume 84 fL (79-100) Mean Corpuscular Hemoglobin 26 pg (25-35) Mean Corpuscular Hemoglobin Concent 31 g/dL (31-37) Red Cell Distribution Width 18.9 % (11.5-14.5) Platelet Count 260 x10^3/uL (140-400) Neutrophils (%) (Auto) 74 % (31-73) Lymphocytes (%) (Auto) 13 % (24-48) Monocytes (%) (Auto) 9 % (0-9) Eosinophils (%) (Auto) 4 % (0-3) Basophils (%) (Auto) 1 % (0-3) Neutrophils # (Auto) 5.6 x10^3/uL (1.8-7.7) Lymphocytes # (Auto) 1.0 x10^3/uL (1.0-4.8) Monocytes # (Auto) 0.7 x10^3/uL (0.0-1.1) Eosinophils # (Auto) 0.3 x10^3/uL (0.0-0.7) Basophils # (Auto) 0.1 x10^3/uL (0.0-0.2) Sodium Level 143 mmol/L (136-145) Potassium Level 3.6 mmol/L (3.5-5.1) Chloride Level 100 mmol/L (98-107) Carbon Dioxide Level 38 mmol/L (21-32) Anion Gap 5 (6-14) Blood Urea Nitrogen 22 mg/dL (7-20) Creatinine 1.4 mg/dL (0.6-1.0) Estimated GFR (Cockcroft-Gault) 36.4 Glucose Level 132 mg/dL (70-99) Calcium Level 9.0 mg/dL (8.5-10.1) Magnesium Level 2.0 mg/dL (1.8-2.4) Test 07/03/20 07:39 07/03/20 12:06 07/03/20 17:08 07/03/20 21:38 Glucose (Fingerstick) 138 mg/dL (70-99) 134 mg/dL (70-99) 121 mg/dL (70-99) 143 mg/dL (70-99) Test 07/04/20 04:12 07/04/20 07:39 07/04/20 07:56 07/04/20 11:35 Sodium Level 142 mmol/L (136-145) Potassium Level 4.2 mmol/L (3.5-5.1) Chloride Level 101 mmol/L (98-107) Carbon Dioxide Level 41 mmol/L (21-32) Anion Gap 0 (6-14) Blood Urea Nitrogen 26 mg/dL (7-20) Creatinine 1.4 mg/dL (0.6-1.0) Estimated GFR (Cockcroft-Gault) 36.4 Glucose Level 84 mg/dL (70-99) Calcium Level 8.6 mg/dL (8.5-10.1) Magnesium Level 2.1 mg/dL (1.8-2.4) Glucose (Fingerstick) 63 mg/dL (70-99) 77 mg/dL (70-99) 199 mg/dL (70-99) Laboratory Tests Test 07/03/20 12:06 07/03/20 17:08 07/03/20 21:38 07/04/20 04:12 Glucose (Fingerstick) 134 mg/dL (70-99) 121 mg/dL (70-99) 143 mg/dL (70-99) Sodium Level 142 mmol/L (136-145) Potassium Level 4.2 mmol/L (3.5-5.1) Chloride Level 101 mmol/L (98-107) Carbon Dioxide Level 41 mmol/L (21-32) Anion Gap 0 (6-14) Blood Urea Nitrogen 26 mg/dL (7-20) Creatinine 1.4 mg/dL (0.6-1.0) Estimated GFR (Cockcroft-Gault) 36.4 Glucose Level 84 mg/dL (70-99) Calcium Level 8.6 mg/dL (8.5-10.1) Magnesium Level 2.1 mg/dL (1.8-2.4) Test 07/04/20 07:39 07/04/20 07:56 07/04/20 11:35 Glucose (Fingerstick) 63 mg/dL (70-99) 77 mg/dL (70-99) 199 mg/dL (70-99) Microbiology 06/29/20 Blood Culture - Preliminary, Resulted NO GROWTH AFTER 4 DAYS Medications Current Medications Vancomycin HCl (Vanco Per Pharmacy) 1 each PRN DAILY PRN MC SEE COMMENTS; Start 06/29/20 at 12:45; Stop 06/29/20 at 15:36; Status DC Vancomycin HCl 2 gm/Sodium Chloride 500 ml @ 250 mls/hr 1X ONCE IV Last administered on 06/29/20at 13:48; Start 06/29/20 at 13:00; Stop 06/29/20 at 14:59; Status DC Sodium Chloride 1,000 ml @ 250 mls/hr 1X ONCE IV Last administered on at 13:47; Start 06/29/20 at 13:30; Stop 06/29/20 at 15:36; Status DC Atorvastatin Calcium (Lipitor) 40 mg QHS PO Last administered on 07/03/20at 21:02; Start 06/29/20 at 21:00 Furosemide (Lasix) 40 mg BID92 IVP Last administered on 07/03/20at 08:29; Start 06/29/20 at 16:00; Stop 07/03/20 at 10:15; Status DC Acetaminophen (Tylenol) 650 mg PRN Q6HRS PRN PO MILD PAIN / TEMP > 100.3'F; Start 06/29/20 at 15:30 Allopurinol (Zyloprim) 100 mg DAILY PO Last administered on 07/04/20at 09:11; Start 06/30/20 at 09:00 Aspirin (Aspirin Chewable) 81 mg DAILYWBKFT PO Last administered on 07/04/20at 09:10; Start 06/30/20 at 08:00 Ferrous Sulfate (Feosol) 325 mg QODAY PO ; Start 07/01/20 at 09:00 Insulin Glargine (Lantus Syringe) 14 unit QHS SQ Last administered on 06/29/20at 21:42; Start 06/29/20 at 21:00; Stop 06/30/20 at 11:12; Status DC Insulin Human Lispro (HumaLOG) 6 units TIDAC SQ Last administered on 06/30/20at 08:43; Start 06/29/20 at 16:30; Stop 06/30/20 at 11:12; Status DC Levothyroxine Sodium (Synthroid) 150 mcg DAILY06 PO Last administered on 07/04/20at 04:58; Start 06/30/20 at 06:00 Metoprolol Succinate (Toprol Xl) 50 mg DAILY PO Last administered on 07/04/20at 09:11; Start 06/30/20 at 09:00 Potassium Chloride (Klor-Con) 20 meq DAILYWBKFT PO Last administered on 06/30/20at 08:24; Start 06/30/20 at 08:00; Stop 06/30/20 at 11:12; Status DC Senna/Docusate Sodium (Senna Plus) 2 tab QHS PO Last administered on 07/03/20at 21:02; Start 06/29/20 at 21:00 Amlodipine Besylate (Norvasc) 5 mg DAILY PO Last administered on 07/04/20 09:11; Start 06/30/20 at 09:00 Linezolid/Dextrose 300 ml @ 300 mls/hr Q12HR IV Last administered on 07/02/20 09:07; Start 06/29/20 at 21:00; Stop 07/02/20 at 10:24; Status DC Meropenem 500 mg/ Sodium Chloride 50 ml @ 100 mls/hr Q8HRS IV Last administered on 07/02/20at 05:31; Start 06/29/20 at 16:00; Stop 07/02/20 at 10:23; Status DC Heparin Sodium (Porcine) (Heparin Sodium) 5,000 unit Q12HR SQ Last administered on 07/04/20 09:17; Start 06/29/20 at 21:00 Lorazepam (Ativan) 0.25 mg 1X ONCE PO Last administered on 06/30/20at 00:16; Start 06/30/20 at 00:30; Stop 06/30/20 at 00:31; Status DC Paroxetine HCl (Paxil) 10 mg DAILY PO Last administered on 07/04/20at 09:10; Start 06/30/20 at 00:30 Lactobacillus Rhamnosus (Culturelle) 1 cap BID PO Last administered on 07/04/20 09:11; Start 06/30/20 at 21:00 Insulin Glargine (Lantus Syringe) 18 unit QHS SQ Last administered on 07/03/20 21:03; Start 06/30/20 at 21:00 Insulin Human Lispro (HumaLOG) 8 units TIDAC SQ Last administered on 07/03/20 18:10; Start 06/30/20 at 11:30 Potassium Chloride (Klor-Con) 20 meq BIDWMEALS PO Last administered on 07/02/20 08:57; Start 06/30/20 at 12:00; Stop 07/02/20 at 10:42; Status DC Metolazone (Zaroxolyn) 5 mg 1X ONCE PO Last administered on 06/30/20 12:28; Start 06/30/20 at 11:15; Stop 06/30/20 at 11:23; Status DC Metolazone (Zaroxolyn) 5 mg 1X ONCE PO Last administered on 07/01/20at 10:40; Start 07/01/20 at 10:30; Stop 07/01/20 at 10:31; Status DC Multivitamins (Thera M Plus) 1 tab DAILY PO Last administered on 07/04/20 09:10; Start 07/01/20 at 15:00 Ascorbic Acid (Vitamin C) 500 mg DAILY PO Last administered on 07/04/20 09:11; Start 07/01/20 at 15:00 Lorazepam (Ativan) 0.25 mg PRN QHS PRN PO anxiety/insomnia Last administered on 07/03/20 23:51; Start 07/01/20 at 20:30 Ceftriaxone Sodium (Rocephin) 2 gm Q24H IVP Last administered on 07/04/20 11:42; Start 07/02/20 at 11:00 Potassium Chloride (Klor-Con) 20 meq TIDWMEALS PO Last administered on 07/04/20 09:11; Start 07/02/20 at 12:00 Lactulose (Lactulose) 20 gm Q2H PO Last administered on 07/02/20 14:46; Start 07/02/20 at 11:00; Stop 07/02/20 at 13:01; Status DC Metolazone (Zaroxolyn) 5 mg 1X ONCE PO Last administered on 07/02/20at 11:45; Start 07/02/20 at 11:30; Stop 07/02/20 at 11:31; Status DC Furosemide (Lasix) 40 mg BID66 PO Last administered on 07/04/20at 04:58; Start 07/03/20 at 18:00 Metolazone (Zaroxolyn) 2.5 mg QMWF PO Last administered on 07/03/20at 12:32; Start 07/03/20 at 11:00 Potassium Chloride (Klor-Con) 20 meq 1X ONCE PO Last administered on 07/03/20at 10:56; Start 07/03/20 at 10:30; Stop 07/03/20 at 10:31; Status DC Active Scripts Active Furosemide 40 Mg Tablet 40 Mg PO BID Amlodipine Besylate 5 Mg Tablet 5 Mg PO DAILY Atorvastatin Calcium 40 Mg Tablet 40 Mg PO QHS Admelog (Insulin Lispro) 100 Unit/1 Ml Vial 6 Units SQ TIDAC hold if blood sugar less than 90 before a meal Lantus (Insulin Glargine,Hum.rec.anlog) 100 Unit/1 Ml Vial 14 Unit SQ QHS Klor-Con M20 (Potassium Chloride) 20 Meq Tab.er.prt 20 Meq PO DAILY Nyamyc (Nystatin) 15 Gm Powder 1 Renee TP BID Stool Soft-Stimulant Lax Tab (Sennosides/Docusate Sodium) 1 Each Tablet 2 Tab PO DAILY Metoprolol Tartrate 25 Mg Tablet 25 Mg PO BID Feosol (Ferrous Sulfate) 325 Mg Tablet 325 Mg PO QODAY Synthroid (Levothyroxine Sodium) 150 Mcg Tablet 150 Mcg PO DAILY06 Allopurinol 100 Mg Tablet 100 Mg PO DAILY Paroxetine Hcl 20 Mg Tablet 20 Mg PO DAILY Reported Aspirin 81 Mg Tab.chew 81 Mg PO HS Tylenol (Acetaminophen) 325 Mg Tablet 650 Mg PO PRN Q4HRS Vitals/I & O Vital Sign - Last 24 Hours 07/03/20 07/03/20 07/03/20 07/03/20 15:00 19:20 20:00 23:04 Temp 98.2 98.8 98.6 98.2 98.8 98.6 Pulse 64 70 68 Resp 20 16 18 B/P (MAP) 128/57 (80) 108/46 (66) 127/51 (76) Pulse Ox 98 98 97 O2 Delivery Nasal Cannula Nasal Cannula Nasal Cannula Nasal Cannula O2 Flow Rate 2.0 3.0 3.0 3.0 07/04/20 07/04/20 07/04/20 07/04/20 03:22 07:00 07:14 09:11 Temp 97.9 98.4 97.9 98.4 Pulse 63 67 67 Resp 16 18 B/P (MAP) 123/54 (77) 148/60 (89) 148/60 Pulse Ox 94 98 O2 Delivery Nasal Cannula Nasal Cannula Nasal Cannula O2 Flow Rate 3.0 3.0 3.0 07/04/20 07/04/20 09:11 11:00 Temp 98.3 98.3 Pulse 67 77 Resp 20 B/P (MAP) 148/60 125/47 (73) Pulse Ox 97 O2 Delivery Nasal Cannula O2 Flow Rate 3.0 Intake and Output 07/03/20 07/03/20 07/04/20 15:00 23:00 07:00 Intake Total 560 ml 350 ml 50 ml Output Total 1700 ml 650 ml Balance 560 ml -1350 ml -600 ml Justifications for Admission Other Justification TERE ALLISON MD Jul 04, 2020 12:07
--- NOTE | 2020-07-04 12:22 | NUR ---
SS following up with discharge planning. SS reviewed pt chart and discussed with pt RN. Pt is currently requiring oxygen at three liters nasal canula. Pt has home oxygen. Pt son found an apartment for pt and pt's spouse at [address], [facility], . Pt's son reported that pt and spouse can move in on 07/06/2020. Pt's spouse and family requesting hospice at this time. [facility]erral [facility], ; fax [phone]. Pt's son reported that pt will come to his home until apartment is fully furnished. SS will continue to follow for discharge planning.
[2020-07-04 15:00] VITALS: BP 133/59
[2020-07-04 18:46] VITALS: BP 135/59
[2020-07-04] MEDS: LORazepam 0.5 MG TABLET PO PRN (21:08)
[2020-07-04] MEDS: ATORVASTATIN CALCIUM 40 MG TABLET. PO SCH (21:08)
[2020-07-04] MEDS: SENNOSIDES/DOCUSATE 8.6/50MG TABLET. PO SCH (21:08)
[2020-07-04] MEDS: INSULIN GLARGINE SYRINGE. SQ SCH (21:18)
[2020-07-04 23:00] VITALS: BP 130/58
[2020-07-05] VITALS (7 sets, daily range): BP systolic 116–152; BP diastolic 54–63
--- NOTE | 2020-07-05 02:35 | NUR ---
Assumed care from SHIVAM Daniel. Patient is sleeping with mouth breathing. Does not appear SOA.
[2020-07-05] MEDS: LEVOTHYROXINE 150 MCG TABLET PO SCH (05:40)
[2020-07-05] MEDS: FUROSEMIDE 40 MG TABLET. PO SCH ×2 (05:47→16:28)
--- NOTE | 2020-07-05 06:35 | NUR ---
IP: Per physician documentation, pt has a hx of mrsa and ESBL. Pt to be in contact precautions with stump wounds.
[2020-07-05 07:47] LABS: BLOOD UREA NITROGEN 31 mg/dL (7-20); CALCIUM 8.8 mg/dL (8.5-10.1); CARBON DIOXIDE 42 mmol/L (21-32); CHLORIDE 99 mmol/L (98-107); CREATININE 1.5 mg/dL (0.6-1.0); GFR 33.6; GLUCOSE 145 mg/dL (70-99); MAGNESIUM 2.3 mg/dL (1.8-2.4); POTASSIUM 4.3 mmol/L (3.5-5.1); SODIUM 139 mmol/L (136-145)
--- NOTE | 2020-07-05 08:15 | PDOC ---
Infectious Disease Note Subjective: Subjective Patient feels better Right lower extremity swelling and redness improved Has dry skin O2 2 L by nasal cannula T max 99.8 Vital Signs: Vital Signs Vital Signs Date Time Temp Pulse Resp B/P (MAP) Pulse Ox O2 Delivery O2 Flow Rate FiO2 07/05/20 07:00 97.5 67 18 138/62 (87) 95 Nasal Cannula 2.0 97.5 Physical Exam: PHYSICAL EXAM GENERAL: Alert oriented x3 female sitting at the edge of the bed in no acute distress HEENT: Normal conjunctivae. Oropharynx pink and moist. No lesions seen. NECK: Supple. LUNGS: Clear to auscultation. No accessory muscle use. HEART: S1 and S2. ABDOMEN: Obese, soft, nontender with bowel sounds present. GENITOURINARY: Indwelling Cifuentes in place. EXTREMITIES: Left BKA prosthesis in place. Right lower extremity dressing in place not taken Swelling erythema right thigh and foot has improved SKIN: Warm to touch. No signs of rash. NEUROLOGIC: Alert and answering questions appropriately. PERIPHERAL IV: Looks okay. Medications: Inpatient Meds: Medications reviewed. Labs: Lab Laboratory Tests Test 07/04/20 11:35 07/04/20 16:43 07/04/20 21:05 07/05/20 07:00 Glucose (Fingerstick) 199 mg/dL (70-99) 215 mg/dL (70-99) 232 mg/dL (70-99) Sodium Level 139 mmol/L (136-145) Potassium Level 4.3 mmol/L (3.5-5.1) Chloride Level 99 mmol/L (98-107) Carbon Dioxide Level 42 mmol/L (21-32) Anion Gap (6-14) Blood Urea Nitrogen 31 mg/dL (7-20) Creatinine 1.5 mg/dL (0.6-1.0) Estimated GFR (Cockcroft-Gault) 33.6 Glucose Level 145 mg/dL (70-99) Calcium Level 8.8 mg/dL (8.5-10.1) Magnesium Level 2.3 mg/dL (1.8-2.4) Test 07/05/20 07:28 Glucose (Fingerstick) 151 mg/dL (70-99) Objective: Assessment: 1. Recurrent cellulitis, right lower extremity. 2. Mild bibasilar infiltrates. 3. Type 2 diabetes mellitus with peripheral neuropathy. 4. Chronic kidney disease. 5. Peripheral arterial disease. 6. Obesity. 7. Cat exposure. 8. History of methicillin-resistant Staphylococcus aureus and extended spectrum beta-lactamase. 9. Acute on chronic diastolic congestive heart failure. 10. Chronic respiratory failure on home O2 at 2 L Plan: Plan of Care Dose ceftriaxone today Transition to p.o. Keflex 500 mg p.o. 3 times daily for 7 days and tomorrow Encouraged leg elevation Local wound care Discussed with at bedside LADARIUS VENTURA MD Jul 05, 2020 08:15
[2020-07-05] MEDS: ASPIRIN CHEWABLE 81 MG TABLET. PO SCH (08:22)
[2020-07-05] MEDS: MULTIVITAMIN with MINERAL TABLET. PO SCH (08:23)
[2020-07-05] MEDS: LACTOBACILLUS RHAMNOSUS GG 1 CAPSULE. PO SCH ×2 (08:23→20:45)
[2020-07-05] MEDS: ASCORBIC ACID 500 MG TABLET PO SCH (08:23)
[2020-07-05] MEDS: PARoxetine 10 MG TABLET PO SCH (08:24)
[2020-07-05] MEDS: POTASSIUM CHLORIDE 20 MEQ TABLET.ER. PO SCH ×2 (08:24→20:45)
[2020-07-05] MEDS: ALLOPURINOL 100 MG TABLET. PO SCH (08:24)
[2020-07-05] MEDS: METOPROLOL SUCC 24HR ER 50 MG TAB.ER.24H. PO SCH (08:24)
[2020-07-05] MEDS: INSULIN LISPRO 300 UNITS/3 ML VIAL. SQ SCH ×3 (08:32→18:01)
[2020-07-05] MEDS: HEPARIN for SUB-Q USE 5,000 UNIT/ML VIAL. SQ SCH ×2 (08:32→20:50)
[2020-07-05] MEDS: FERROUS SULFATE 325 MG TABLET. PO SCH (08:33)
--- NOTE | 2020-07-05 09:42 | NUR ---
SS following up with discharge planning. SS reviewed pt chart and discussed with pt RN. Pt is currently requiring oxygen at two liters nasal canula. Pt on IV Rocephin. [facility] meeting with pt at 1000 today to sign consents. Pt's son reported that pt will temporarily move to his home until pt's apartment is ready. DME to be delivered to pt's sons home today. Plan for discharge to home tomorrow with hospice. Pt and pt's son reported that pt's spouse will transport pt to home tomorrow. Pt's RN notified. SS will continue to follow for discharge planning.
--- NOTE | 2020-07-05 10:38 | PDOC ---
PROGRESS NOTES Date of Service DATE: 07/05/20 TIME: 10:36 Subjective Subjective FEELS BETTER. right leg edema much improved. Objective Objective Vital Signs Date Time Temp Pulse Resp B/P (MAP) Pulse Ox O2 Delivery O2 Flow Rate FiO2 07/05/20 08:24 70 07/05/20 07:00 97.5 18 138/62 (87) 95 Nasal Cannula 2.0 97.5 Intake and Output 07/05/20 07:00 Intake Total 640 ml Output Total 2550 ml Balance -1910 ml Intake Oral 640 ml Output Urine Total 2550 ml Physical Exam Abdomen: Soft, Other (obese) Heart: Regular rate, Normal S1, Normal S2 Extremities: Other (1 plus edema RLE/ left BKA) General: Alert Lungs: Clear to auscultation Neuro: Normal gait Psych/Mental Status: Mental status NL Skin: Other (redness RLE better) Assessment Assessment ProblemsCellulitis of the right leg. improving 2. Acute on chronic diastolic congestive heart failure manifested by crackles in the lungs, better 3. Acute on chronic hypoxic and hypercapnic respiratory failure. She notes increasing dyspnea on exertion with just short distances. 4. Diabetes mellitus type 2, on insulin with peripheral neuropathy and nephropathy. 5. Chronic kidney disease stage 3. 6. Chronic venous insufficiency of the lower extremity. 7. Anemia of chronic disease. 8. Moderate protein calorie malnutrition. 9. Hypertension. 10. Hyperlipidemia. 11. Morbid obesity. 12. Obstructive sleep apnea. 13. Nonobstructive coronary artery disease. 14. Left below-knee amputation with amputations of the second and third toes of the right foot. 15. Mild peripheral arterial disease. Medical Problems: (1) Cellulitis Status: Acute (2) CHF exacerbation Status: Acute Plan Plan of [facility] tomorrow with hospice continue furosemide and kcl continue iv rocephin and switch to keflex tomorrow Comment Review of Relevant I have reviewed the following items helio (where applicable) has been applied. Labs Laboratory Tests Test 07/03/20 12:06 07/03/20 17:08 07/03/20 21:38 07/04/20 04:12 Glucose (Fingerstick) 134 mg/dL (70-99) 121 mg/dL (70-99) 143 mg/dL (70-99) Sodium Level 142 mmol/L (136-145) Potassium Level 4.2 mmol/L (3.5-5.1) Chloride Level 101 mmol/L (98-107) Carbon Dioxide Level 41 mmol/L (21-32) Anion Gap 0 (6-14) Blood Urea Nitrogen 26 mg/dL (7-20) Creatinine 1.4 mg/dL (0.6-1.0) Estimated GFR (Cockcroft-Gault) 36.4 Glucose Level 84 mg/dL (70-99) Calcium Level 8.6 mg/dL (8.5-10.1) Magnesium Level 2.1 mg/dL (1.8-2.4) Test 07/04/20 07:39 07/04/20 07:56 07/04/20 11:35 07/04/20 16:43 Glucose (Fingerstick) 63 mg/dL (70-99) 77 mg/dL (70-99) 199 mg/dL (70-99) 215 mg/dL (70-99) Test 07/04/20 21:05 07/05/20 07:00 07/05/20 07:28 Glucose (Fingerstick) 232 mg/dL (70-99) 151 mg/dL (70-99) Sodium Level 139 mmol/L (136-145) Potassium Level 4.3 mmol/L (3.5-5.1) Chloride Level 99 mmol/L (98-107) Carbon Dioxide Level 42 mmol/L (21-32) Anion Gap (6-14) Blood Urea Nitrogen 31 mg/dL (7-20) Creatinine 1.5 mg/dL (0.6-1.0) Estimated GFR (Cockcroft-Gault) 33.6 Glucose Level 145 mg/dL (70-99) Calcium Level 8.8 mg/dL (8.5-10.1) Magnesium Level 2.3 mg/dL (1.8-2.4) Laboratory Tests Test 07/04/20 11:35 07/04/20 16:43 07/04/20 21:05 07/05/20 07:00 Glucose (Fingerstick) 199 mg/dL (70-99) 215 mg/dL (70-99) 232 mg/dL (70-99) Sodium Level 139 mmol/L (136-145) Potassium Level 4.3 mmol/L (3.5-5.1) Chloride Level 99 mmol/L (98-107) Carbon Dioxide Level 42 mmol/L (21-32) Anion Gap (6-14) Blood Urea Nitrogen 31 mg/dL (7-20) Creatinine 1.5 mg/dL (0.6-1.0) Estimated GFR (Cockcroft-Gault) 33.6 Glucose Level 145 mg/dL (70-99) Calcium Level 8.8 mg/dL (8.5-10.1) Magnesium Level 2.3 mg/dL (1.8-2.4) Test 07/05/20 07:28 Glucose (Fingerstick) 151 mg/dL (70-99) Microbiology 06/29/20 Blood Culture - Final, Complete NO GROWTH AFTER 5 DAYS Medications Current Medications Vancomycin HCl (Vanco Per Pharmacy) 1 each PRN DAILY PRN MC SEE COMMENTS; Start 06/29/20 at 12:45; Stop 06/29/20 at 15:36; Status DC Vancomycin HCl 2 gm/Sodium Chloride 500 ml @ 250 mls/hr 1X ONCE IV Last administered on 06/29/20at 13:48; Start 06/29/20 at 13:00; Stop 06/29/20 at 14:59; Status DC Sodium Chloride 1,000 ml @ 250 mls/hr 1X ONCE IV Last administered on 06/29/20at 13:47; Start 06/29/20 at 13:30; Stop 06/29/20 at 15:36; Status DC Atorvastatin Calcium (Lipitor) 40 mg QHS PO Last administered on 07/04/20at 21:08; Start 06/29/20 at 21:00 Furosemide (Lasix) 40 mg BID92 IVP Last administered on 07/03/20at 08:29; Start 06/29/20 at 16:00; Stop 07/03/20 at 10:15; Status DC Acetaminophen (Tylenol) 650 mg PRN Q6HRS PRN PO MILD PAIN / TEMP > 100.3'F; Start 06/29/20 at 15:30 Allopurinol (Zyloprim) 100 mg DAILY PO Last administered on 07/05/20at 08:24; Start 06/30/20 at 09:00 Aspirin (Aspirin Chewable) 81 mg DAILYWBKFT PO Last administered on 07/05/20at 08:22; Start 06/30/20 at 08:00 Ferrous Sulfate (Feosol) 325 mg QODAY PO ; Start 07/01/20 at 09:00 Insulin Glargine (Lantus Syringe) 14 unit QHS SQ Last administered on 06/29/20at 21:42; Start 06/29/20 at 21:00; Stop 06/30/20 at 11:12; Status DC Insulin Human Lispro (HumaLOG) 6 units TIDAC SQ Last administered on 06/30/20at 08:43; Start 06/29/20 at 16:30; Stop 06/30/20 at 11:12; Status DC Levothyroxine Sodium (Synthroid) 150 mcg DAILY06 PO Last administered on 07/05/20 05:40; Start 06/30/20 at 06:00 Metoprolol Succinate (Toprol Xl) 50 mg DAILY PO Last administered on 07/05/20 08:24; Start 06/30/20 at 09:00 Potassium Chloride (Klor-Con) 20 meq DAILYWBKFT PO Last administered on 06/30/20at 08:24; Start 06/30/20 at 08:00; Stop 06/30/20 at 11:12; Status DC Senna/Docusate Sodium (Senna Plus) 2 tab QHS PO Last administered on 07/04/20at 21:08; Start 06/29/20 at 21:00 Amlodipine Besylate (Norvasc) 5 mg DAILY PO Last administered on 07/05/20at 0 8:23; Start 06/30/20 at 09:00 Linezolid/Dextrose 300 ml @ 300 mls/hr Q12HR IV Last administered on 07/02/20at 09:07; Start 06/29/20 at 21:00; Stop 07/02/20 at 10:24; Status DC Meropenem 500 mg/ Sodium Chloride 50 ml @ 100 mls/hr Q8HRS IV Last administe red on 07/02/20at 05:31; Start 06/29/20 at 16:00; Stop 07/02/20 at 10:23; Status DC Heparin Sodium (Porcine) (Heparin Sodium) 5,000 unit Q12HR SQ Last administered on 07/05/20 08:32; Start 06/29/20 at 21:00 Lorazepam (Ativan) 0.25 mg 1X ONCE PO Last administered on 06/30/20 00:16; Start 06/30/20 at 00:30; Stop 06/30/20 at 00:31; Status DC Paroxetine HCl (Paxil) 10 mg DAILY PO Last administered on 07/05/20 08:24; Start 06/30/20 at 00:30 Lactobacillus Rhamnosus (Culturelle) 1 cap BID PO Last administered on 07/05/20 08:23; Start 06/30/20 at 21:00 Insulin Glargine (Lantus Syringe) 18 unit QHS SQ Last administered on 07/03/20at 21:03; Start 06/30/20 at 21:00; Stop 07/04/20 at 12:03; Status DC Insulin Human Lispro (HumaLOG) 8 units TIDAC SQ Last administered on 07/03/20 18:10; Start 06/30/20 at 11:30; Stop 07/04/20 at 12:03; Status DC Potassium Chloride (Klor-Con) 20 meq BIDWMEALS PO Last administered on 07/02/20at 08:57; Start 06/30/20 at 12:00; Stop 07/02/20 at 10:42; Status DC Metolazone (Zaroxolyn) 5 mg 1X ONCE PO Last administered on 06/30/20at 12:28; Start 06/30/20 at 11:15; Stop 06/30/20 at 11:23; Status DC Metolazone (Zaroxolyn) 5 mg 1X ONCE PO Last administered on 07/01/20at 10:40; Start 07/01/20 at 10:30; Stop 07/01/20 at 10:31; Status DC Multivitamins (Thera M Plus) 1 tab DAILY PO Last administered on 07/05/20 08:23; Start 07/01/20 at 15:00 Ascorbic Acid (Vitamin C) 500 mg DAILY PO Last administered on 07/05/20 08:23; Start 07/01/20 at 15:00 Lorazepam (Ativan) 0.25 mg PRN QHS PRN PO anxiety/insomnia Last administered on 07/04/20at 21:08; Start 07/01/20 at 20:30 Ceftriaxone Sodium (Rocephin) 2 gm Q24H IVP Last administered on 07/04/20 11:42; Start 07/02/20 at 11:00 Potassium Chloride (Klor-Con) 20 meq TIDWMEALS PO Last administered on 07/04/20at 09:11; Start 07/02/20 at 12:00; Stop 07/04/20 at 12:03; Status DC Lactulose (Lactulose) 20 gm Q2H PO Last administered on 07/02/20at 14:46; Start 07/02/20 at 11:00; Stop 07/02/20 at 13:01; Status DC Metolazone (Zaroxolyn) 5 mg 1X ONCE PO Last administered on 07/02/20at 11:45; Start 07/02/20 at 11:30; Stop 07/02/20 at 11:31; Status DC Furosemide (Lasix) 40 mg BID66 PO Last administered on 07/05/20at 05:47; Start 07/03/20 at 18:00 Metolazone (Zaroxolyn) 2.5 mg QMWF PO Last administered on 07/03/20at 12:32; Start 07/03/20 at 11:00 Potassium Chloride (Klor-Con) 20 meq 1X ONCE PO Last administered on 07/03/20at 10:56; Start 07/03/20 at 10:30; Stop 07/03/20 at 10:31; Status DC Insulin Glargine (Lantus Syringe) 12 unit QHS SQ Last administered on 07/04/20at 21:18; Start 07/04/20 at 21:00 Insulin Human Lispro (HumaLOG) 6 units TIDAC SQ Last administered on 07/05/20at 08:32; Start 07/04/20 at 16:30 Potassium Chloride (Klor-Con) 20 meq BID PO Last administered on 07/05/20at 08:24; Start 07/04/20 at 21:00 Active Scripts Active Furosemide 40 Mg Tablet 40 Mg PO BID Amlodipine Besylate 5 Mg Tablet 5 Mg PO DAILY Atorvastatin Calcium 40 Mg Tablet 40 Mg PO QHS Admelog (Insulin Lispro) 100 Unit/1 Ml Vial 6 Units SQ TIDAC hold if blood sugar less than 90 before a meal Lantus (Insulin Glargine,Hum.rec.anlog) 100 Unit/1 Ml Vial 14 Unit SQ QHS Klor-Con M20 (Potassium Chloride) 20 Meq Tab.er.prt 20 Meq PO DAILY Nyamyc (Nystatin) 15 Gm Powder 1 Renee TP BID Stool Soft-Stimulant Lax Tab (Sennosides/Docusate Sodium) 1 Each Tablet 2 Tab PO DAILY Metoprolol Tartrate 25 Mg Tablet 25 Mg PO BID Feosol (Ferrous Sulfate) 325 Mg Tablet 325 Mg PO QODAY Synthroid (Levothyroxine Sodium) 150 Mcg Tablet 150 Mcg PO DAILY06 Allopurinol 100 Mg Tablet 100 Mg PO DAILY Paroxetine Hcl 20 Mg Tablet 20 Mg PO DAILY Reported Aspirin 81 Mg Tab.chew 81 Mg PO HS Tylenol (Acetaminophen) 325 Mg Tablet 650 Mg PO PRN Q4HRS Vitals/I & O Vital Sign - Last 24 Hours 07/04/20 07/04/20 07/04/20 07/04/20 11:00 15:00 18:46 20:00 Temp 98.3 98.9 98.3 98.3 98.9 98.3 Pulse 77 71 69 Resp 20 20 20 B/P (MAP) 125/47 (73) 133/59 (83) 135/59 (84) Pulse Ox 97 98 92 O2 Delivery Nasal Cannula Nasal Cannula Nasal Cannula Nasal Cannula O2 Flow Rate 3.0 3.0 3.0 3.0 07/04/20 07/05/20 07/05/20 07/05/20 23:00 00:21 03:03 07:00 Temp 99.8 99.0 98.6 97.5 99.8 99.0 98.6 97.5 Pulse 69 70 69 67 Resp 20 20 18 18 B/P (MAP) 130/58 (82) 135/59 (84) 116/63 (80) 138/62 (87) Pulse Ox 92 98 91 95 O2 Delivery Nasal Cannula Nasal Cannula Nasal Cannula Nasal Cannula O2 Flow Rate 3.0 3.0 4.0 2.0 07/05/20 07/05/20 08:23 08:24 Pulse 70 70 Intake and Output 07/04/20 07/04/20 07/05/20 15:00 23:00 07:00 Intake Total 340 ml 300 ml Output Total 900 ml 1650 ml Balance 340 ml -600 ml -1650 ml Justifications for Admission Other Justification TERE ALLISON MD Jul 05, 2020 10:38
[2020-07-05] MEDS ORDERED: INSU100V8 SQ (10:51)
[2020-07-05] MEDS ORDERED: CEPH500T PO (10:51)
[2020-07-05] MEDS ORDERED: POTA20TA4 PO (10:51)
[2020-07-05] MEDS ORDERED: METO2.5T PO (10:51)
[2020-07-05] MEDS ORDERED: MULT1TAB92 PO (10:51)
[2020-07-05] MEDS ORDERED: ASCO500T4 PO (10:51)
[2020-07-05] MEDS ORDERED: METO50TA4 PO (10:51)
--- NOTE | 2020-07-05 10:53 | SNU/HH DC ---
DISCHARGE ORDERS DISCHARGE INFORMATION: DISCHARGE DATE: Jul 05, 2020 FINAL DIAGNOSIS Problems chf and cellulitis Medical Problems: (1) Cellulitis Status: Acute (2) CHF exacerbation Status: Acute CONDITION ON DISCHARGE: Stable CODE STATUS: Code Status: Full HOSPICE: HOSPICE: Yes HOSPICE EVAL & TREAT: Yes POST DISCHARGE ORDERS: ACTIVITY ORDERS: Activity as tolerated WEIGHT BEARING STATUS: As tolerated DIET AFTER DISCHARGE: ADA WOUND/INCISION CARE: Change dressing, May get incision wet OTHER ORDERS: elevate right leg and apply tubigrips. c CHECKS AFTER DISCHARGE: CHECKS AFTER DISCHARGE: Check blood press - daily, Check blood sugar, ac/hs FOLLOW-UP: PHYSICIAN FOLLOW-UP: dr. allison LAB ORDERS FOR FOLLOW-UP: bmp and magnesium every wednesday. fax reslts to Additional Instructions: fax resuts to dr allison fax [phone] TREATMENT/EQUIPMENT ORDERS: ADAPTIVE EQUIPMENT NEEDED: Walker RESPIRATORY EQUIPMENT NEEDED: Oxygen Physical Therapy For: Evalulation/Treatment Occupational Therapy For: Evaluation/Treatment DISCHARGE MEDICATIONS: Home Meds Active Scripts Cephalexin (CEPHALEXIN) 500 Mg Tablet, 1 TAB PO TID for cellulitis for 7 Days, #21 TAB Prov:TERE ALLISON MD 07/05/20 Multivits,Ca,Minerals/Iron/Fa (THERA-M TABLET) 1 Each Tablet, 1 TAB PO DAILY for multivitamin, #30 TAB Prov:TERE ALLISON MD 07/05/20 Ascorbic Acid (VITAMIN C) 500 Mg Tablet, 500 MG PO DAILY for wound, #30 TAB Prov:TERE ALLISON MD 07/05/20 Insulin Glargine,Hum.rec.anlog (LANTUS) 100 Unit/1 Ml Vial, 12 UNIT SQ QHS for diabetes, #1 EACH Prov:TERE ALLISON MD 07/05/20 Metolazone (METOLAZONE) 2.5 Mg Tablet, 2.5 MG PO QMWF for chf, #12 TAB Prov:TERE ALLISON MD 07/05/20 Potassium Chloride (KLOR-CON M20) 20 Meq Tab.er.prt, 20 MEQ PO BID for kcl supplement, #60 TAB.SR Prov:TERE ALLISON MD 07/05/20 Metoprolol Succinate (Toprol XL) 50 Mg Tab.er.24h, 50 MG PO DAILY for CHF, #30 TAB.SR Prov:TERE ALLISON MD 07/05/20 Furosemide (FUROSEMIDE) 40 Mg Tablet, 40 MG PO BID for chf, #60 TAB Prov:TERE ALLISON MD 06/12/20 Amlodipine Besylate (AMLODIPINE BESYLATE) 5 Mg Tablet, 5 MG PO DAILY for HTN, # 30 TAB Prov:TERE ALLISON MD 06/12/20 Atorvastatin Calcium (ATORVASTATIN CALCIUM) 40 Mg Tablet, 40 MG PO QHS for hyperlipidemia, #30 TAB Prov:TERE ALLISON MD 06/12/20 Insulin Lispro (Admelog) 100 Unit/1 Ml Vial, 6 UNITS SQ TIDAC for diabetes, #10 EACH hold if blood sugar less than 90 before a meal Prov:TERE ALLISON MD 06/04/20 Nystatin (NYAMYC) 15 Gm Powder, 1 GEOVANNA TP BID for yeast rash, #1 MISC Prov:TERE ALLISON MD 05/12/20 Sennosides/Docusate Sodium (STOOL SOFT-STIMULANT LAX TAB) 1 Each Tablet, 2 TAB PO DAILY for constipation, #60 TAB Prov:TERE ALLISON MD 05/12/20 Ferrous Sulfate (FEOSOL) 325 Mg Tablet, 325 MG PO QODAY for anemia, #15 TAB Prov:TERE ALLISON MD 05/12/20 Levothyroxine Sodium (SYNTHROID) 150 Mcg Tablet, 150 MCG PO DAILY06 for hypothyroidism, #30 TAB Prov:TERE ALLISON MD 05/21/19 Allopurinol (ALLOPURINOL) 100 Mg Tablet, 100 MG PO DAILY for chronic gout, #30 TAB Prov:TERE ALLISON MD 05/21/19 Paroxetine Hcl (PAROXETINE HCL) 20 Mg Tablet, 20 MG PO DAILY for depression, #30 TAB Prov:TERE ALLISON MD 05/21/19 Reported Medications Aspirin (ASPIRIN) 81 Mg Tab.chew, 81 MG PO HS for heart healthy, TAB.CHEW 05/03/20 Acetaminophen (TYLENOL) 325 Mg Tablet, 650 MG PO PRN Q4HRS 05/19/13 Discontinued Scripts Insulin Glargine,Hum.rec.anlog (LANTUS) 100 Unit/1 Ml Vial, 14 UNIT SQ QHS for DM, #10 EACH Prov:TERE ALLISON MD 06/04/20 Potassium Chloride (KLOR-CON M20) 20 Meq Tab.er.prt, 20 MEQ PO DAILY for kcl supplement, #30 TAB.SR Prov:TERE ALLISON MD 06/04/20 Metoprolol Tartrate (METOPROLOL TARTRATE) 25 Mg Tablet, 25 MG PO BID for HTN, #60 TAB Prov:TERE ALLISON MD 05/12/20 TERE ALLISON MD Jul 05, 2020 10:53
--- NOTE | 2020-07-05 10:59 | PDOC ---
Provider Note Date of Service: DATE: 07/05/20 TIME: 10:58 Provider Note discharge summary dictated # [id number] Justifications for Admission Other Justification TERE ALLISON MD Jul 05, 2020 10:59
--- NOTE | 2020-07-05 11:18 | NUR ---
SS following up with discharge planning. Hospice orders received from Dr. Lara. SS phoned and faxed hospice orders to [facility]. Consents signed. SS will continue to follow for discharge planning.
[2020-07-05] MEDS: cefTRIAXone IV Push 2 GM VIAL. IVP SCH (11:37)
[2020-07-05] MEDS: metOLazone 2.5 MG TABLET PO SCH (13:16)
[2020-07-05] MEDS: ATORVASTATIN CALCIUM 40 MG TABLET. PO SCH (20:45)
[2020-07-05] MEDS: SENNOSIDES/DOCUSATE 8.6/50MG TABLET. PO SCH (20:45)
[2020-07-05] MEDS: INSULIN GLARGINE SYRINGE. SQ SCH (20:46)
--- NOTE | 2020-07-05 21:32 | DS ---
DATE OF DISCHARGE: 07/05/2020 DATE OF ANTICIPATED DISMISSAL: 07/06/2020. CONSULTANTS: Include; 1. Dr. George Marquez 2. Dr. Shankar 3. Dr. Powers FINAL DIAGNOSES: 1. Acute on chronic diastolic congestive heart failure. 2. Acute on chronic hypoxic and hypercarbic respiratory failure. 3. Cellulitis, right lower extremity, recurrent. 4. Diabetes mellitus type 2 and insulin with peripheral neuropathy and nephropathy. 5. Chronic kidney disease stage III. 6. Chronic venous insufficiency of lower extremities. 7. Venous insufficiency wound in the right lower extremity. 8. Anemia of chronic disease. 9. Moderate protein calorie malnutrition. 10. Hypertension. 11. Hyperlipidemia. 12. Morbid obesity. 13. Obstructive sleep apnea. 14. Nonobstructive coronary artery disease. 15. Left below-knee amputation and she also has had amputation of second and third toes of the right foot. 16. Mild peripheral arterial disease. HOSPITAL COURSE: The patient is a 79-year-old morbidly obese white female with a history of diabetes mellitus type 2 with nephropathy and peripheral neuropathy, treated with insulin, who has chronic kidney disease stage III with serum baseline creatinine around 1.4-1.7, who has hypertension, hyperlipidemia, obstructive sleep apnea treated with CPAP, peripheral arterial disease, mild peripheral arterial disease, nonobstructive coronary artery disease, hypothyroidism, chronic diastolic congestive heart failure and chronic hypoxic and hypercapnic respiratory failure and was dismissed 1 day from a snf facility was at home and her visiting nurse noted increased redness and swelling in the right lower extremity, prompting her to go to [facility] Emergency Room where she was diagnosed with a recurrent cellulitis of right lower extremity and acute on chronic diastolic congestive heart failure and acute on chronic hypoxic and hypercapnic respiratory failure. Venous Doppler right lower extremity was negative for deep vein thrombosis. She was seen by Dr. Powers for cardiology, Dr. George Marquez for infectious disease, Dr. Shankar for pulmonary. She received IV antibiotics and will switch eventually to IV Rocephin and she will be switched to oral Keflex starting tomorrow for the 7-day course of treatment. For her congestive heart failure, she received IV Lasix and started on metolazone. With an excellent diuresis and the right leg was much improved with less redness and less swelling. She did have a wound on the right leg, which was thought to be due to a venous stasis wound. She had arterial Doppler done recently, which showed mild peripheral arterial disease. Apparently had another one ordered yesterday, results are pending. The patient has much improved shortness of breath. She was not short of breath at rest. She is going to be dismissed to home on 07/06 with hospice. She will have a BMP and magnesium level every Wednesday, results faxed to Dr. Lara. She will be dismissed on vitamin C 500 mg every day, Keflex 500 mg t.i.d. for 7 days, Lantus insulin 12 units at bedtime, metolazone 2.5 mg on Mondays, Wednesdays and Fridays, metoprolol succinate 50 mg every day, multiple vitamin every day, potassium chloride 20 mEq b.i.d., Tylenol 650 mg q.4h. p.r.n., allopurinol 100 mg every day, amlodipine 5 mg every day, aspirin 81 mg at bedtime, atorvastatin 40 mg at bedtime, ferrous sulfate 325 mg every other day, furosemide 40 mg b.i.d., Humalog insulin 6 units before meals t.i.d., Levothyroxine 150 mcg every day, nystatin cream apply topically b.i.d., Paxil 20 mg every day, Senokot one to two tablets every day. She will be dismissed to home with hospice. ENOCH DR: Pearl TID: [id number]
[2020-07-05] MEDS: LORazepam 0.5 MG TABLET PO PRN (22:53)
[2020-07-06 02:53] VITALS: BP 122/56
[2020-07-06 05:52] LABS: CALCIUM 8.5 mg/dL (8.5-10.1); CREATININE 1.5 mg/dL (0.6-1.0); GFR 33.6; POTASSIUM 4.2 mmol/L (3.5-5.1)
[2020-07-06] MEDS: LEVOTHYROXINE 150 MCG TABLET PO SCH (06:23)
[2020-07-06] MEDS: FUROSEMIDE 40 MG TABLET. PO SCH (06:23)
[2020-07-06 07:00] VITALS: BP 131/55
--- NOTE | 2020-07-06 07:53 | PDOC ---
Infectious Disease Note Subjective: Subjective Patient feels better Right lower extremity swelling and redness improved Has dry skin O2 2 L by nasal cannula Vital Signs: Vital Signs Vital Signs Date Time Temp Pulse Resp B/P (MAP) Pulse Ox O2 Delivery O2 Flow Rate FiO2 07/06/20 02:53 98.1 69 19 122/56 (78) 93 Nasal Cannula 2.0 98.1 Physical Exam: PHYSICAL EXAM GENERAL: Alert oriented x3 female sitting at the edge of the bed in no acute distress HEENT: Normal conjunctivae. Oropharynx pink and moist. No lesions seen. NECK: Supple. LUNGS: Clear to auscultation. No accessory muscle use. HEART: S1 and S2. ABDOMEN: Obese, soft, nontender with bowel sounds present. GENITOURINARY: Indwelling Cifuentes in place. EXTREMITIES: Left BKA prosthesis in place. Right lower extremity dressing in place not taken Swelling erythema right thigh and foot has improved SKIN: Warm to touch. No signs of rash. NEUROLOGIC: Alert and answering questions appropriately. PERIPHERAL IV: Looks okay. Medications: Inpatient Meds: Medications reviewed. Labs: Lab Laboratory Tests Test 07/05/20 11:30 07/05/20 16:51 07/05/20 20:42 07/06/20 05:00 Glucose (Fingerstick) 144 mg/dL (70-99) 186 mg/dL (70-99) 259 mg/dL (70-99) Sodium Level 139 mmol/L (136-145) Potassium Level 4.2 mmol/L (3.5-5.1) Chloride Level 99 mmol/L (98-107) Carbon Dioxide Level 38 mmol/L (21-32) Anion Gap 2 (6-14) Blood Urea Nitrogen 35 mg/dL (7-20) Creatinine 1.5 mg/dL (0.6-1.0) Estimated GFR (Cockcroft-Gault) 33.6 Glucose Level 263 mg/dL (70-99) Calcium Level 8.5 mg/dL (8.5-10.1) Test 07/06/20 07:23 Glucose (Fingerstick) 249 mg/dL (70-99) Objective: Assessment: 1. Recurrent cellulitis, right lower extremity. 2. Mild bibasilar infiltrates. 3. Type 2 diabetes mellitus with peripheral neuropathy. 4. Chronic kidney disease. 5. Peripheral arterial disease. 6. Obesity. 7. Cat exposure. 8. History of methicillin-resistant Staphylococcus aureus and extended spectrum beta-lactamase. 9. Acute on chronic diastolic congestive heart failure. 10. Chronic respiratory failure on home O2 at 2 L Plan: Plan of Care Patient can be discharged p.o. Keflex 500 mg p.o. 3 times daily for 7 days Encouraged leg elevation Local wound care LADARIUS VENTURA MD July 06, 2020 07:53
--- NOTE | 2020-07-06 08:19 | PDOC ---
PROGRESS NOTES Date of Service DATE: 07/06/20 TIME: 08:17 Subjective Subjective feels better. right leg looks better with less edema and redness. lab reviewed. waqas burks at for 1month Objective Objective Vital Signs Date Time Temp Pulse Resp B/P (MAP) Pulse Ox O2 Delivery O2 Flow Rate FiO2 07/06/20 07:00 98.3 73 18 131/55 (80) 99 Nasal Cannula 2.0 98.3 Intake and Output 07/06/20 07:00 Intake Total 1250 ml Output Total 3550 ml Balance -2300 ml Intake Oral 1250 ml Output Urine Total 3550 ml Physical Exam Abdomen: Soft Heart: Regular rate, Normal S1, Normal S2 Extremities: Other (1 plus edema RLE. left BKA) General: Alert HEENT: Atraumatic Lungs: Clear to auscultation Neuro: Normal speech Psych/Mental Status: Mental status NL Skin: Other (less redness RLE) Assessment Assessment ProblemsCellulitis of the right leg. improving 2. Acute on chronic diastolic congestive heart failure stable 3. Acute on chronic hypoxic and hypercapnic respiratory failure. stable 4. Diabetes mellitus type 2, on insulin with peripheral neuropathy and nephropathy. 5. Chronic kidney disease stage 3. 6. Chronic venous insufficiency of the lower extremity. 7. Anemia of chronic disease. 8. Moderate protein calorie malnutrition. 9. Hypertension. 10. Hyperlipidemia. 11. Morbid obesity. 12. Obstructive sleep apnea. 13. Nonobstructive coronary artery disease. 14. Left below-knee amputation with amputations of the second and third toes of the right foot. 15. Mild peripheral arterial disease. Medical Problems: (1) Cellulitis Status: Acute (2) CHF exacerbation Status: Acute Plan Plan of Care dismiss today on [facility] home with hospice Comment Review of Relevant I have reviewed the following items helio (where applicable) has been applied. Labs Laboratory Tests Test 07/04/20 11:35 07/04/20 16:43 07/04/20 21:05 07/05/20 07:00 Glucose (Fingerstick) 199 mg/dL (70-99) 215 mg/dL (70-99) 232 mg/dL (70-99) Sodium Level 139 mmol/L (136-145) Potassium Level 4.3 mmol/L (3.5-5.1) Chloride Level 99 mmol/L (98-107) Carbon Dioxide Level 42 mmol/L (21-32) Anion Gap (6-14) Blood Urea Nitrogen 31 mg/dL (7-20) Creatinine 1.5 mg/dL (0.6-1.0) Estimated GFR (Cockcroft-Gault) 33.6 Glucose Level 145 mg/dL (70-99) Calcium Level 8.8 mg/dL (8.5-10.1) Magnesium Level 2.3 mg/dL (1.8-2.4) Test 07/05/20 07:28 07/05/20 11:30 07/05/20 16:51 07/05/20 20:42 Glucose (Fingerstick) 151 mg/dL (70-99) 144 mg/dL (70-99) 186 mg/dL (70-99) 259 mg/dL (70-99) Test 07/06/20 05:00 07/06/20 07:23 Sodium Level 139 mmol/L (136-145) Potassium Level 4.2 mmol/L (3.5-5.1) Chloride Level 99 mmol/L (98-107) Carbon Dioxide Level 38 mmol/L (21-32) Anion Gap 2 (6-14) Blood Urea Nitrogen 35 mg/dL (7-20) Creatinine 1.5 mg/dL (0.6-1.0) Estimated GFR (Cockcroft-Gault) 33.6 Glucose Level 263 mg/dL (70-99) Calcium Level 8.5 mg/dL (8.5-10.1) Glucose (Fingerstick) 249 mg/dL (70-99) Laboratory Tests Test 07/05/20 11:30 07/05/20 16:51 07/05/20 20:42 07/06/20 05:00 Glucose (Fingerstick) 144 mg/dL (70-99) 186 mg/dL (70-99) 259 mg/dL (70-99) Sodium Level 139 mmol/L (136-145) Potassium Level 4.2 mmol/L (3.5-5.1) Chloride Level 99 mmol/L (98-107) Carbon Dioxide Level 38 mmol/L (21-32) Anion Gap 2 (6-14) Blood Urea Nitrogen 35 mg/dL (7-20) Creatinine 1.5 mg/dL (0.6-1.0) Estimated GFR (Cockcroft-Gault) 33.6 Glucose Level 263 mg/dL (70-99) Calcium Level 8.5 mg/dL (8.5-10.1) Test 07/06/20 07:23 Glucose (Fingerstick) 249 mg/dL (70-99) Microbiology 06/29/20 Blood Culture - Final, Complete NO GROWTH AFTER 5 DAYS Medications Current Medications Vancomycin HCl (Vanco Per Pharmacy) 1 each PRN DAILY PRN MC SEE COMMENTS; Start 06/29/20 at 12:45; Stop 06/29/20 at 15:36; Status DC Vancomycin HCl 2 gm/Sodium Chloride 500 ml @ 250 mls/hr 1X ONCE IV Last administered on 06/29/20at 13:48; Start 06/29/20 at 13:00; Stop 06/29/20 at 14:59; Status DC Sodium Chloride 1,000 ml @ 250 mls/hr 1X ONCE IV Last administered on 06/29/20at 13:47; Start 06/29/20 at 13:30; Stop 06/29/20 at 15:36; Status DC Atorvastatin Calcium (Lipitor) 40 mg QHS PO Last administered on 07/05/20at 20:45; Start 06/29/20 at 21:00 Furosemide (Lasix) 40 mg BID92 IVP Last administered on 07/03/20at 08:29; Start 06/29/20 at 16:00; Stop 07/03/20 at 10:15; Status DC Acetaminophen (Tylenol) 650 mg PRN Q6HRS PRN PO MILD PAIN / TEMP > 100.3'F; Start 06/29/20 at 15:30 Allopurinol (Zyloprim) 100 mg DAILY PO Last administered on 07/05/20at 08:24; Start 06/30/20 at 09:00 Aspirin (Aspirin Chewable) 81 mg DAILYWBKFT PO Last administered on 07/05/20at 08:22; Start 06/30/20 at 08:00 Ferrous Sulfate (Feosol) 325 mg QODAY PO ; Start 07/01/20 at 09:00 Insulin Glargine (Lantus Syringe) 14 unit QHS SQ Last administered on 06/29/20at 21:42; Start 06/29/20 at 21:00; Stop 06/30/20 at 11:12; Status DC Insulin Human Lispro (HumaLOG) 6 units TIDAC SQ Last administered on 06/30/20at 08:43; Start 06/29/20 at 16:30; Stop 06/30/20 at 11:12; Status DC Levothyroxine Sodium (Synthroid) 150 mcg DAILY06 PO Last administered on 07/06/20 06:23; Start 06/30/20 at 06:00 Metoprolol Succinate (Toprol Xl) 50 mg DAILY PO Last administered on 07/05/20 08:24; Start 06/30/20 at 09:00 Potassium Chloride (Klor-Con) 20 meq DAILYWBKFT PO Last administered on 06/30/20at 08:24; Start 06/30/20 at 08:00; Stop 06/30/20 at 11:12; Status DC Senna/Docusate Sodium (Senna Plus) 2 tab QHS PO Last administered on 07/05/20at 20:45; Start 06/29/20 at 21:00 Amlodipine Besylate (Norvasc) 5 mg DAILY PO Last administered on 07/05/20at 08:23; Start 06/30/20 at 09:00 Linezolid/Dextrose 300 ml @ 300 mls/hr Q12HR IV Last administered on 07/02/20at 09:07; Start 06/29/20 at 21:00; Stop 07/02/20 at 10:24; Status DC Meropenem 500 mg/ Sodium Chloride 50 ml @ 100 mls/hr Q8HRS IV Last administered on 07/02/20at 05:31; Start 06/29/20 at 16:00; Stop 07/02/20 at 10:23; Status DC Heparin Sodium (Porcine) (Heparin Sodium) 5,000 unit Q12HR SQ Last administered on 07/05/20at 20:50; Start 06/29/20 at 21:00 Lorazepam (Ativan) 0.25 mg 1X ONCE PO Last administered on 06/30/20at 00:16; Start 06/30/20 at 00:30; Stop 06/30/20 at 00:31; Status DC Paroxetine HCl (Paxil) 10 mg DAILY PO Last administered on 07/05/20at 08:24; Start 06/30/20 at 00:30 Lactobacillus Rhamnosus (Culturelle) 1 cap BID PO Last administered on 07/05/20 20:45; Start 06/30/20 at 21:00 Insulin Glargine (Lantus Syringe) 18 unit QHS SQ Last administered on 07/03/20at 21:03; Start 06/30/20 at 21:00; Stop 07/04/20 at 12:03; Status DC Insulin Human Lispro (HumaLOG) 8 units TIDAC SQ Last administered on 07/03/20at 18:10; Start 06/30/20 at 11:30; Stop 07/04/20 at 12:03; Status DC Potassium Chloride (Klor-Con) 20 meq BIDWMEALS PO Last administered on 07/02/20at 08:57; Start 06/30/20 at 12:00; Stop 07/02/20 at 10:42; Status DC Metolazone (Zaroxolyn) 5 mg 1X ONCE PO Last administered on 06/30/20at 12:28; Start 06/30/20 at 11:15; Stop 06/30/20 at 11:23; Status DC Metolazone (Zaroxolyn) 5 mg 1X ONCE PO Last administered on 07/01/20at 10:40; Start 07/01/20 at 10:30; Stop 07/01/20 at 10:31; Status DC Multivitamins (Thera M Plus) 1 tab DAILY PO Last administered on 07/05/20at 08:23; Start 07/01/20 at 15:00 Ascorbic Acid (Vitamin C) 500 mg DAILY PO Last administered on 07/05/20 08:23; Start 07/01/20 at 15:00 Lorazepam (Ativan) 0.25 mg PRN QHS PRN PO anxiety/insomnia Last administered on 07/05/20 22:53; Start 07/01/20 at 20:30 Ceftriaxone Sodium (Rocephin) 2 gm Q24H IVP Last administered on 07/05/20 11:37; Start 07/02/20 at 11:00 Potassium Chloride (Klor-Con) 20 meq TIDWMEALS PO Last administered on 07/04/20at 09:11; Start 07/02/20 at 12:00; Stop 07/04/20 at 12:03; Status DC Lactulose (Lactulose) 20 gm Q2H PO Last administered on 07/02/20at 14:46; Start 07/02/20 at 11:00; Stop 07/02/20 at 13:01; Status DC Metolazone (Zaroxolyn) 5 mg 1X ONCE PO Last administered on 07/02/20at 11:45; Start 07/02/20 at 11:30; Stop 07/02/20 at 11:31; Status DC Furosemide (Lasix) 40 mg BID66 PO Last administered on 07/06/20at 06:23; Start 07/03/20 at 18:00 Metolazone (Zaroxolyn) 2.5 mg QMWF PO Last administered on 07/03/20at 12:32; Start 07/03/20 at 11:00 Potassium Chloride (Klor-Con) 20 meq 1X ONCE PO Last administered on 07/03/20at 10:56; Start 07/03/20 at 10:30; Stop 07/03/20 at 10:31; Status DC Insulin Glargine (Lantus Syringe) 12 unit QHS SQ Last administered on 07/05/20at 20:46; Start 07/04/20 at 21:00 Insulin Human Lispro (HumaLOG) 6 units TIDAC SQ Last administered on 07/05/20at 18:01; Start 07/04/20 at 16:30 Potassium Chloride (Klor-Con) 20 meq BID PO Last administered on 07/05/20at 20:45; Start 07/04/20 at 21:00 Active Scripts Active Cephalexin 500 Mg Tablet 1 Tab PO TID 7 Days Thera-M Tablet (Multivits,Ca,Minerals/Iron/Fa) 1 Each Tablet 1 Tab PO DAILY Vitamin C (Ascorbic Acid) 500 Mg Tablet 500 Mg PO DAILY Lantus (Insulin Glargine,Hum.rec.anlog) 100 Unit/1 Ml Vial 12 Unit SQ QHS Metolazone 2.5 Mg Tablet 2.5 Mg PO QMWF Klor-Con M20 (Potassium Chloride) 20 Meq Tab.er.prt 20 Meq PO BID Toprol XL (Metoprolol Succinate) 50 Mg Tab.er.24h 50 Mg PO DAILY Furosemide 40 Mg Tablet 40 Mg PO BID Amlodipine Besylate 5 Mg Tablet 5 Mg PO DAILY Atorvastatin Calcium 40 Mg Tablet 40 Mg PO QHS Admelog (Insulin Lispro) 100 Unit/1 Ml Vial 6 Units SQ TIDAC hold if blood sugar less than 90 before a meal Nyamyc (Nystatin) 15 Gm Powder 1 Renee TP BID Stool Soft-Stimulant Lax Tab (Sennosides/Docusate Sodium) 1 Each Tablet 2 Tab PO DAILY Feosol (Ferrous Sulfate) 325 Mg Tablet 325 Mg PO QODAY Synthroid (Levothyroxine Sodium) 150 Mcg Tablet 150 Mcg PO DAILY06 Allopurinol 100 Mg Tablet 100 Mg PO DAILY Paroxetine Hcl 20 Mg Tablet 20 Mg PO DAILY Reported Aspirin 81 Mg Tab.chew 81 Mg PO HS Tylenol (Acetaminophen) 325 Mg Tablet 650 Mg PO PRN Q4HRS Vitals/I & O Vital Sign - Last 24 Hours 07/05/20 07/05/20 07/05/20 07/05/20 08:23 08:24 11:34 15:23 Temp 98.0 98.3 98.0 98.3 Pulse 70 70 65 65 Resp 20 18 B/P (MAP) 152/59 (90) 122/62 (82) Pulse Ox 96 97 O2 Delivery Nasal Cannula Nasal Cannula O2 Flow Rate 2.0 2.0 07/05/20 07/05/20 07/05/20 07/06/20 19:00 20:00 23:00 02:53 Temp 98.2 98.6 98.1 98.2 98.6 98.1 Pulse 74 69 69 Resp 20 20 19 B/P (MAP) 130/59 (82) 120/54 (76) 122/56 (78) Pulse Ox 98 97 93 O2 Delivery Nasal Cannula Nasal Cannula Nasal Cannula Nasal Cannula O2 Flow Rate 2.0 2.0 2.0 2.0 07/06/20 07:00 Temp 98.3 98.3 Pulse 73 Resp 18 B/P (MAP) 131/55 (80) Pulse Ox 99 O2 Delivery Nasal Cannula O2 Flow Rate 2.0 Intake and Output 07/05/20 07/05/20 07/06/20 15:00 23:00 07:00 Intake Total 200 ml 1000 ml 50 ml Output Total 1400 ml 1000 ml 1150 ml Balance -1200 ml 0 ml -1100 ml Justifications for Admission Other Justification TERE ALLISON MD July 06, 2020 08:19
[2020-07-06] MEDS: ASPIRIN CHEWABLE 81 MG TABLET. PO SCH (08:26)
[2020-07-06] MEDS: ALLOPURINOL 100 MG TABLET. PO SCH (08:26)
[2020-07-06] MEDS: PARoxetine 10 MG TABLET PO SCH (08:26)
[2020-07-06] MEDS: LACTOBACILLUS RHAMNOSUS GG 1 CAPSULE. PO SCH (08:26)
[2020-07-06] MEDS: MULTIVITAMIN with MINERAL TABLET. PO SCH (08:26)
[2020-07-06 08:27] VITALS: BP 131/55
[2020-07-06] MEDS: POTASSIUM CHLORIDE 20 MEQ TABLET.ER. PO SCH (08:27)
[2020-07-06] MEDS: METOPROLOL SUCC 24HR ER 50 MG TAB.ER.24H. PO SCH (08:27)
[2020-07-06] MEDS: ASCORBIC ACID 500 MG TABLET PO SCH (08:27)
[2020-07-06] MEDS: INSULIN LISPRO 300 UNITS/3 ML VIAL. SQ SCH (08:29)
[2020-07-06] MEDS: HEPARIN for SUB-Q USE 5,000 UNIT/ML VIAL. SQ SCH (08:30)
--- NOTE | 2020-07-06 10:34 | NUR ---
Discharge Note: DIMAS REDMOND Discharge instructions and discharge home medications reviewed with Patient and a copy given. All questions have been answered and understanding verbalized. The following instructions and handouts were given: hospice, cellulitis, heart failure Discontinued lines and drains: Peripheral IV intact. Patient discharged to Home w/services with Spouse via Wheelchair
== END 2020-07-06 10:35 | disposition hospice, home (50) | DRG 602 ==
LOC: ER 10:50 → 2 NORTH 13:19
PROVIDERS: ADMIT Internal Medicine; ATTEND Internal Medicine
PROC: 5A09357 Assistance with Respiratory Ventilation, Less than 24 Consecutive Hours, Continuous Positive Airway Pressure (ICD-10-PCS; principal; 2020-06-30)
PROC: 5A09357 Assistance with Respiratory Ventilation, Less than 24 Consecutive Hours, Continuous Positive Airway Pressure (ICD-10-PCS; 2020-07-01)
DX: L03.115 Cellulitis of right lower limb (principal); J96.21 Acute and chronic respiratory failure with hypoxia; I50.33 Acute on chronic diastolic (congestive) heart failure; J96.22 Acute and chronic respiratory failure with hypercapnia; I13.0 Hypertensive heart and chronic kidney disease with heart failure and stage 1 through stage 4 chronic kidney disease, or unspecified chronic kidney disease; E44.0 Moderate protein-calorie malnutrition; E66.2 Morbid (severe) obesity with alveolar hypoventilation; E87.2 Acidosis; Z68.41 Body mass index [BMI] 40.0-44.9, adult; D63.8 Anemia in other chronic diseases classified elsewhere; E03.9 Hypothyroidism, unspecified; E11.22 Type 2 diabetes mellitus with diabetic chronic kidney disease; E11.42 Type 2 diabetes mellitus with diabetic polyneuropathy; E11.51 Type 2 diabetes mellitus with diabetic peripheral angiopathy without gangrene; E78.5 Hyperlipidemia, unspecified; I25.10 Atherosclerotic heart disease of native coronary artery without angina pectoris; I27.20 Pulmonary hypertension, unspecified; I48.0 Paroxysmal atrial fibrillation; I87.2 Venous insufficiency (chronic) (peripheral); K59.00 Constipation, unspecified; M1A.9XX0 Chronic gout, unspecified, without tophus (tophi); N18.30 Chronic kidney disease, stage 3 unspecified; Z79.4 Long term (current) use of insulin; Z79.890 Hormone replacement therapy; Z79.899 Other long term (current) drug therapy; Z82.49 Family history of ischemic heart disease and other diseases of the circulatory system; Z85.42 Personal history of malignant neoplasm of other parts of uterus; Z86.14 Personal history of Methicillin resistant Staphylococcus aureus infection; Z86.19 Personal history of other infectious and parasitic diseases; Z87.891 Personal history of nicotine dependence; Z89.512 Acquired absence of left leg below knee; Z90.49 Acquired absence of other specified parts of digestive tract; Z90.710 Acquired absence of both cervix and uterus; Z97.14 Presence of artificial left leg (complete) (partial); Z88.8 Allergy status to other drugs, medicaments and biological substances; Z90.721 Acquired absence of ovaries, unilateral; Z91.048 Other nonmedicinal substance allergy status
CPT/HCPCS: 36415; 36600; 71045; 73590; 73630; 80048; 80053; 82805; 82962; 83605; 83735; 83880; 84484; 85025; 86140; 87040; 93005; 93971; 94660; 96365; 99285; J0696; J1644; J1815; J1940; J2020; J2185; J3370; J7030; J7040; 97110-GP; 97116-GP; 97530-GO; 97530-GP; 97535-GO; G0378

== ENCOUNTER → 2020-10-16 | Outpatient (CLI) | payer MEDICARE ==
[~2020-10-16] MED LIST changes: +ASCO500T4 PO; +CEPH500T PO; +METO2.5T PO; +METO50TA4 PO; +MULT1TAB92 PO
--- NOTE | 2020-10-16 16:55 | CARD ---
MR#: [id number] Date of Study: 10/16/2020 Ordering Physician: JAY SMYTH, Referring Physician: JAY SMYTH Tech: Marine Rhoades CYNTHIA APPROVED REPORT EXAM: Two-dimensional and M-mode echocardiogram with Doppler and color Doppler. Other Information Quality : FairHR: 77bpm Rhythm : NSR INDICATION Cardiac Disease: CAD RISK FACTORS Hypertension Obesity Hyperlipidemia Diabetes 2D DIMENSIONS RVDd3.1 (2.9-3.5cm)Left Atrium(2D)4.1 (1.6-4.0cm) IVSd1.1 (0.7-1.1cm)Aortic Root(2D)3.1 (2.0-3.7cm) LVDd4.3 (3.9-5.9cm)LVOT Diameter2.0 (1.8-2.4cm) PWd1.1 (0.7-1.1cm)LVDs3.3 (2.5-4.0cm) FS (%) 22.9 %SV39.3 ml LVEF(%)46.2 (>50%) Aortic Valve AoV Peak Sheldon.145.3cm/sAoV VTI41.1cm AO Peak GR.8.4mmHgLVOT Peak Sheldon.91.8cm/s AO Mean GR.5mmHgAVA (VMAX)1.98cm2 Pulmonary Valve PV Peak Oyrwvxiy679.6cm/s LEFT VENTRICLE The left ventricle is normal size. There is borderline to mild concentric left ventricular hypertroph y. The left ventricular systolic function is normal. Estimated ejection fraction 60%. There is karla l LV segmental wall motion. RIGHT VENTRICLE The right ventricle is normal size. There is normal right ventricular wall thickness. The right ventr icular systolic function is normal. ATRIA The left atrium size is normal. The right atrium size is normal. The interatrial septum is intact wit h no evidence for an atrial septal defect or patent foramen ovale as noted on 2-D or Doppler imaging. AORTIC VALVE The aortic valve is normal in structure and function. Doppler and Color Flow revealed trace aortic re gurgitation. There is no significant aortic valvular stenosis. MITRAL VALVE The mitral valve is normal in structure and function. There is no evidence of mitral valve prolapse. There is no mitral valve stenosis. Doppler and Color-flow revealed mild mitral regurgitation. TRICUSPID VALVE The tricuspid valve is normal in structure and function. Doppler and Color Flow revealed trace tricus pid regurgitation. Estimated PAP 25 mmHg. There is no tricuspid valve stenosis. PULMONIC VALVE The pulmonary valve is normal in structure and function. Doppler and Color Flow revealed no pulmonic valvular regurgitation. GREAT VESSELS The aortic root is normal in size. The ascending aorta is normal in size. The IVC is normal in size a nd collapses >50% with inspiration. PERICARDIAL EFFUSION There is no evidence of significant pericardial effusion. Critical Notification Critical Value: No <Conclusion> The left ventricular systolic function is normal. Estimated ejection fraction 60%. There is normal LV segmental wall motion. Mild mitral regurgitation. Trace tricuspid regurgitation. Estimated PAP 25 mmHg. There is no evidence of significant pericardial effusion. Signed by : Jay Smyth, Electronically Approved : 10/16/2020 16:55:20
== END ==
LOC: ECHO 11:01
PROVIDERS: ATTEND Internal Medicine Cardiovascular Disease
DX: I51.7 Cardiomegaly (principal); I50.32 Chronic diastolic (congestive) heart failure
CPT/HCPCS: 93306

== ENCOUNTER 2021-01-05 07:24 | Inpatient (IN) | payer MEDICARE ==
[~2021-01-05] VITALS: Ht 167.6 cm; Wt 116.0 kg
[~2021-01-05 07:24] MED LIST changes: +POTA-121 PO; -POTA20TA4 PO
--- NOTE | 2021-01-05 07:53 | PHYS DOC ---
Past Medical History Past Medical History: CHF, Diabetes-Type II, Hypertension, Hypothyroid, Other Additional Past Medical Histor: cpap at night for sleep apnea Past Surgical History: Appendectomy, Hysterectomy, Tonsillectomy, Other Additional Past Surgical Histo: patient reports bilateral toe amputations. LEFT BKA Smoking Status: Never Smoker Alcohol Use: None Drug Use: None General Adult EDM: Chief Complaint: OTHER COMPLAINTS HPI: HPI: 80 yo PMH DM, CKDIII, HTN, HLD, LULI, CAD, and obesity, presents the ED with her , (patient consents to his/her/their knowledge and involvement in pts' medical care), complaints of left-sided, nonradiating, "sore" chest pain, left shoulder pain and shortness of breath that started at noon yesterday. Pt reports she has a history of heart failure. Received her Pfizer vaccine in August. Is on cpap but states last night she still felt short of breath and didn't sleep well. Review of Systems: Review of Systems: Constitutional: Denies fever or chills. [] Eyes: Denies change in visual acuity. [] HENT: Denies nasal congestion or sore throat. [] Respiratory: Denies hemoptysis or increased work of breathing Cardiovascular: Denies syncope or edema. [] GI: Denies nausea, vomiting, bloody stools or diarrhea. [] : Denies vaginal bleeding or hematuria Musculoskeletal: Denies back pain or flank pain Integument: Denies rash or diaphoresis Neurologic: Denies headache, focal weakness or sensory changes. [] Endocrine: Denies polyuria or polydipsia. [] Lymphatic: Denies swollen glands. [] Psychiatric: Denies depression or anxiety. [] Heart Score: C/O Chest Pain: Yes HEART Score for Chest Pain: HEART Score for Chest Pain Response (Comments) Value History Moderately Suspicious 1 ECG Nonspecific Repolarizatio 1 Age > 65 2 Risk Factors >3 Risk Factors or Hx CAD 2 Troponin >3 x Normal Limit 2 Total 8 Risk Factors: Risk Factors: DM, Current or recent (<one month) smoker, HTN, HLP, family history of CAD, obesity. Risk Scores: Score 0 - 3: 2.5% MACE over next 6 weeks - Discharge Home Score 4 - 6: 20.3% MACE over next 6 weeks - Admit for Clinical Observation Score 7 - 10: 72.7% MACE over next 6 weeks - Early Invasive Strategies Allergies: Allergies: Allergies Coded Allergies Type Severity Reaction Last Updated Verified lisinopril Allergy Severe THROAT, TONGUE SWELLING 11/16/13 Yes adhesive Allergy Intermediate TAPE-RED SKIN 11/16/13 Yes sertraline HCl Allergy Intermediate 11/16/13 Yes I S O L A T I O N *CONTACT* Allergy Unknown 05/13/20 Yes morphine Adverse Reaction Intermediate Nausea 11/16/13 Yes Physical Exam: PE: Constitutional: Afebrile, hypoxic on arrival HENT: Normocephalic, atraumatic, Eyes: EOMI, conjunctiva normal, no discharge. Neck: Normal range of motion, supple, Cardiovascular: S1/2 present, regular rhythm Lungs & Thorax: Speaking in full sentences but is labored/tachypneic with speech, requires NC, bilateral equal chest rise, Abdomen: soft, no tenderness, Skin: Warm, dry, Extremities: left leg amputated, rle swelling w/mild erythema of leg Neurologic: Alert and oriented X 3, normal motor function, normal sensory function, no focal deficits noted. [] Psychologic: Affect normal, judgement normal, mood normal. [] EKG: EK atrial flutter 74 bpm, left axis deviation, QTC 461, T wave inversion 1 and aVL, PACS vs artifact vs hyperacute? ST segments in V1 V2 and V3, no ST segment depressions, these are new changes from 06/2020 ekg 0836 concern for atrial flutter versus sinus rhythm with PACs, 69 bpm, left axis deviation, QTC 462, QRS 130, pacs vs artifact vs hyperacute ST segments in V1, V2 and V3, new changes from 06/2020 ekg *I reviewed both these EKGs with Dr. Kessler -full consultation pending 1002 sinus rhythm 60 bpm, left axis deviation, first-degree AV block MS interval 202, QRS 130, QTc 460, T wave inversion one aVL, no ROBERTA/STD, no change from 06/09/20 Radiology/Procedures: Radiology/Procedures: []IMAGING REPORT Signed PATIENT: DIMAS REDMOND ACCOUNT: [id number] : 1940 LOCATION: ER AGE: 80 SEX: F EXAM STATUS: REG ER ORD. PHYSICIAN: KENIA MURILLO DO REASON: soa, cp, shoulder pain PROCEDURE: PORTABLE CHEST 1V Exam Date: 01/05/2021 8:00 AM XR CHEST 1V Indication: Reason: soa, cp, shoulder pain / Spl. Instructions: / History: . Comparison: June 29, 2020 FINDINGS/ IMPRESSION: The cardiac silhouette is enlarged with slightly more prominent mild congestion. Bibasilar infiltrates, atelectasis, and/or edema is more prominent compared to the prior exam. Small bilateral pleural effusions are noted, left larger than right. No pneumothorax. Prominent interstitial markings bilaterally are suggestive of interstitial edema, though infection is not excluded. Electronically signed by: Zac Garland MD (01/05/2021 8:42 AM) [id number] DICTATED and SIGNED BY: ZAC GARLAND MD DATE: 01/05/21 [id number] 0 Course & Med Decision Making: Course & Med Decision Making Pertinent Labs and Imaging studies reviewed. (See chart for details) Concern for nstemi in the setting of chest pain x 20 hours, ekg reviewed w/cardiology. Labs with ckd & leukocytosis. Urine is infected, started on rocephin. Will admit to medicine for further medical management with cardiology consulted. Patient stable time admission and agrees with this plan. I have spoken with the patient and/or caregivers. I have explained the patient's condition, diagnosis and treatment plan based on the information available to me at this time. I have answered the patient's and/or caregivers questions and answered any concerns. The patient and/or caregivers have as good an understanding of the patient's diagnosis, condition and treatment plan as can be expected at this point. The patient has been stabilized within the capability of the emergency department. The patient will be transported for further care and management or will be moved to an observation or inpatient service. I have communicated with the staff or medical practitioner taking over this patient's care. Critical Care: Authorized and Performed by: Kenia Murillo DO Total critical care time: approximately 30 minutes Due to a high probability of clinically significant, life threatening deterioration, the patient required my highest level of preparedness to intervene emergently and I personally spent this critical care time directly and personally managing the patient. This critical care time included obtaining a history; examining the patient; pulse oximetry; ventilator management if necessary; ordering and review of studies; arranging urgent treatment with development of a management plan; evaluation of patient's response to treatment; frequent reassessment; discussion with patient/family; and, discussions with other providers. This critical care time was performed to assess and manage the high probability of imminent, life-threatening deterioration that could result in multi-organ failure. It was exclusive of separately billable procedures and treating other patients and teaching time. Please see MDM section and the rest of the note for further information on patient assessment and treatment. Dragon Disclaimer: Dragon Disclaimer: This electronic medical record was generated, in whole or in part, using a voice recognition dictation system. Departure Departure Impression: Primary Impression: NSTEMI (non-ST elevated myocardial infarction) Additional Impressions: Person under investigation for COVID-19 CHF exacerbation Respiratory failure, unspecified with hypoxia CKD (chronic kidney disease) UTI (urinary tract infection) Disposition: ADMITTED INPATIENT Admitting Physician: Ramirez Lara Condition: GUARDED Referrals: RAMIREZ LARA MD (PCP) KENIA MURILLO DO Jan 05, 2021 07:53
[2021-01-05 08:05] LABS: BASO # 0.1 x10^3/uL (0.0-0.2); BASO % 1 % (0-3); EOS # 0.1 x10^3/uL (0.0-0.7); EOS % 0 % (0-3); HEMATOCRIT 37.1 % (36.0-47.0); HEMOGLOBIN 11.9 g/dL (12.0-15.5); LYMPH % 5 % (24-48); MEAN CORPUSCULAR HEMOGLOBIN 27 pg (25-35); MEAN CORPUSCULAR HGB CONC 32 g/dL (31-37); MEAN CORPUSCULAR VOLUME 85 fL (79-100); MONO # 1.4 x10^3/uL (0.0-1.1); MONO % 7 % (0-9); NEUT # 17.5 x10^3/uL (1.8-7.7); NEUT % 87 % (31-73); PLATELET COUNT 275 x10^3/uL (140-400); RED BLOOD COUNT 4.37 x10^6/uL (3.50-5.40); RED CELL DISTRIBUTION WIDTH 14.1 % (11.5-14.5); WHITE BLOOD COUNT 20.1 x10^3/uL (4.0-11.0)
[2021-01-05 08:17] LABS: CALCIUM 8.9 mg/dL (8.5-10.1); CREATININE 1.7 mg/dL (0.6-1.0); POTASSIUM 3.8 mmol/L (3.5-5.1)
[2021-01-05 08:24] LABS: ALBUMIN 3.3 g/dL (3.4-5.0); DIRECT BILIRUBIN 0.2 mg/dL (0.0-0.2); MAGNESIUM 2.1 mg/dL (1.8-2.4); TOTAL BILIRUBIN 0.7 mg/dL (0.2-1.0); TOTAL PROTEIN 8.2 g/dL (6.4-8.2)
[2021-01-05 08:41] LABS: BASE EXCESS COOX 2 mmol/L (-3-3); HCO3 COOX 27 mmol/L (21-28); METHEMOGLOBIN 0.2 % (0.0-1.9); OXYHEMOGLOBIN 89.5 %; PCO2 COOX 43 mmHg (35-46); PO2 COOX 62 mmHg (65-108); SAT O2 COOX 90 % (92-99)
--- NOTE | 2021-01-05 08:45 | RAD ---
Exam Date: 01/05/2021 8:00 AM XR CHEST 1V Indication: Reason: soa, cp, shoulder pain / Spl. Instructions: / History: . Comparison: June 29, 2020 FINDINGS/ IMPRESSION: The cardiac silhouette is enlarged with slightly more prominent mild congestion. Bibasilar infiltrat es, atelectasis, and/or edema is more prominent compared to the prior exam. Small bilateral pleural effusions are noted, left larger than right. No pneumothorax. Prominent interstitial markings bilat erally are suggestive of interstitial edema, though infection is not excluded. Electronically signed by: Mika Garland MD (01/05/2021 8:42 AM) [id number]
[2021-01-05] MEDS ORDERED: FUROSEMIDE 40 MG/4 ML VIAL. IVP ONE (09:00)
[2021-01-05 09:37] LABS: INFLUENZA A PATIENT NEGATIVE (NEGATIVE); INFLUENZA B PATIENT NEGATIVE (NEGATIVE)
[2021-01-05] MEDS: NITROGLYCERIN SUBLINGUAL 0.4 MG BOTTLE OF 25. SL PRN ×2 (10:00→10:19)
[2021-01-05 10:16] LABS: BILIRUBIN,URINE NEGATIVE (NEG); CLARITY,URINE CLEAR; COLOR,URINE YELLOW; NITRITE,URINE NEGATIVE (NEG); PROTEIN,URINE 30 mg/dL (NEG-TRACE); UROBILINOGEN,URINE 0.2 mg/dL (0.2 mg/dL)
[2021-01-05 10:25] LABS: BARBITURATES NEG (NEG); BENZODIAZEPINES NEG (NEG); CANNABINOIDS NEG (NEG); COCAINE NEG (NEG); METHADONE NEG (NEG); OPIATES NEG (NEG); PHENCYCLIDINE NEG (NEG)
[2021-01-05 10:29] LABS: AMPHETAMINE/METHAMPHETAMINE NEG (NEG)
[2021-01-05 10:40] LABS: BACTERIA,URINE MANY /HPF (0-FEW); HYALINE CASTS, URINE FEW /HPF
[2021-01-05] MEDS ORDERED: ONDANSETRON ODT 4 MG TAB.RAPDIS. PO PRN (11:45)
[2021-01-05] MEDS ORDERED: cefTRIAXone IV Push 1 GM VIAL. IVP ONE (12:00)
[2021-01-05 12:08] LABS: % BANDS 2 % (0-9); % LYMPHS 6 % (24-48); % MONOS 5 % (0-10); % SEGS 87 % (35-66)
[2021-01-05 12:09] LABS: PLT ESTIMATE ADEQUATE (ADEQUATE)
[2021-01-05] MEDS: ASPIRIN 325 MG TABLET PO SCH (12:40)
[2021-01-05] MEDS: PIPERACILLIN/TAZOBACTAM 3.375 GM in IV NORMAL SALINE 50ML 50 ML IV SCH ×2 (13:16→23:48)
--- NOTE | 2021-01-05 13:31 | HP ---
DATE OF SERVICE: 01/05/2021 ADMIT DATE: 01/05/2021 HISTORY OF PRESENT ILLNESS: She is currently in the emergency room in room 28, but she will be admitted to the hospital. The patient is a 80-year-old morbidly obese white female with history of diabetes mellitus type 2, treated with insulin with diabetic nephropathy with chronic kidney disease stage III, with peripheral neuropathy, who has hypertension, hyperlipidemia, hypothyroidism, obstructive sleep apnea, peripheral arterial disease, nonobstructive coronary artery disease. It is noted she does have nonobstructive coronary artery disease, chronic diastolic congestive heart failure, was admitted to [facility] through the emergency room on 01/05/2021, noted the onset of shortness of breath last night with decreased appetite. Her blood sugar was 160 before dinner time and she does not eat very well. She also had a cough with yellow sputum started yesterday. She had some shortness of breath last night. Because of her aforementioned symptoms, she sought help at the [facility] Emergency Room where her high sensitivity troponin level was elevated at 713 and her proBNP was elevated at 20,042 and received a dose of IV Lasix and IV Rocephin in the emergency room as her white count was 20,000. She also was noted to have mild pyuria and she also on my exam has some mild right upper quadrant tenderness and a chest x-ray which showed some lung infiltrates. She therefore was admitted for further evaluation. She did have an EKG, which showed no acute abnormality. Initially, it was felt that she had atrial flutter, but I reviewed the EKGs and it looks like artifact and subsequent EKG with normal baseline showed normal sinus rhythm with no acute change. She did have some chest discomfort last night too, which radiated to the left shoulder and resolved with sublingual nitroglycerin in the emergency room. She did have a cardiac catheterization done in the past. She had a 60% stenosis of the left anterior descending coronary artery per the emergency room physician on 05/06/2020. ALLERGIES AND INTOLERANCES: ADHESIVE, LISINOPRIL, MORPHINE, AND SERTRALINE. MEDICATIONS PRIOR TO ADMISSION: Lantus insulin 26 units at bedtime; Humalog insulin 12 units before meals t.i.d.; metolazone 2.5 mg Mondays, Wednesdays, and Fridays; furosemide 40 mg p.o. b.i.d.; metoprolol succinate 50 mg every day; potassium chloride 20 mEq b.i.d.; allopurinol 100 mg every day; amlodipine 5 mg every day; atorvastatin 40 mg at bedtime; furosemide 40 mg p.o. b.i.d.; levothyroxine 150 mcg every day; Paxil 20 mg every day; and Senokot-S 2 tablets every day. 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 She also has mild peripheral arterial disease, anemia of chronic disease, chronic venous insufficiency of the lower extremities. She had cellulitis of the right leg, which was recurrent in June 2020. She does have oxygen at home but has not been wearing it she said, however, last night, she was short of breath. She has chronic diastolic congestive heart failure. She did have a cardiac catheterization on 05/06/2020. An echocardiogram on 05/06 showed a left ventricular ejection fraction of 50%. She had a left below-knee amputation. She has had an appendectomy, hysterectomy, tonsillectomy. SOCIAL HISTORY: She is . Does not drink alcohol nor does she smoke cigarettes. FAMILY HISTORY: Noncontributory. REVIEW OF SYSTEMS: GENERAL: She denies any fever, chills, or sweats in last 3 days. CARDIOVASCULAR: She had some chest pressure radiating to her left shoulder, which was resolved with sublingual nitroglycerin in the emergency room. ENDOCRINE: She has diabetes mellitus. SKIN: No rashes. PULMONARY: She had a cough with yellow sputum since yesterday. Rest of review of systems is negative except as stated in history of present illness. PHYSICAL EXAMINATION: VITAL SIGNS: The temperature is 98.2 degrees, apical pulse 69 and regular, respiratory rate is 25, blood pressure 147/67, oxygen saturation 96% on 3 liters per nasal cannula. HEENT: Eyes, gaze is conjugate. Extraocular muscles are intact. Mouth: Tongue is midline. She is edentulous on top. Has few remaining teeth in the bottom portion of her mouth. NECK: There is no cervical lymphadenopathy or thyroid enlargement. Neck is supple. CARDIAC: S1, S2. There is no S3 or murmur. LUNGS: Clear with decreased breath sounds bilaterally. ABDOMEN: Soft, obese. She does have some mild right upper quadrant tenderness without any guarding or rebound. Obese and soft. EXTREMITIES: Wearing a left lower extremity prosthesis and she had a left below-knee amputation. Right lower extremity has got some chronic erythema in the right pretibial area, which she had before consistent with venous stasis insufficiency and inflammation. She does have 1+ edema in the right lower extremity. She has amputation of second and third toes of the right foot. NEUROLOGIC: Coherent. No facial weakness. 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 Able to dorsi and plantarflex the right foot. Bend her right knee. SKIN: She has got some erythema in the right pretibial area. I do believe it is the cellulitis. It looks like it is more of a venous stasis inflammation. She has had this before. She does have a history of cellulitis of the right leg also. LABORATORY DATA: White count was high at 20.1, hemoglobin 11.9, platelet count was greater than 75,000 with 87 polys and 5 lymphocytes. Arterial blood gas showed a pH of 7.42, pCO2 of 43 with a pO2 of 62. Sodium 138, potassium 3.8, chloride 100, total CO2 of 31, BUN 46, creatinine 1.7, previous creatinine 1.5. Blood sugar 176. Liver function tests normal. Albumin 3.3, lipase of 64. High sensitivity troponin was increased from 713 and the proBNP was increased at 3042. Urinalysis showed 5-10 white cells and 1-2 red blood cells. Urine drug screen was negative. Influenza A and B and COVID-19 screen was negative. She did have an electrocardiogram, which I reviewed. The third one was the best one because there was no baseline artifact, but it showed normal sinus rhythm, left axis deviation, left anterior hemiblock, and delayed precordial R-wave progression that she had before. Nonspecific ST-T wave changes. Chest x-ray showed cardiomegaly, bibasilar infiltrates, and atelectasis. It showed some interstitial markings with some cephalization and small bilateral pleural effusions, left was larger than the right. ASSESSMENT: 1. Chest pain, resolved with sublingual nitroglycerin. 2. Non-ST segment elevated myocardial infarction. 3. Vdppp-hp-shsqini diastolic congestive heart failure, received IV Lasix 40 mg in the emergency room, appears clinically improved. 4. Leukocytosis. Certainly need to rule out infection. She does have mild pyuria. She has got a cough with yellow sputum, so she could have pneumonia and also I doubt she has cellulitis, right lower extremity, but she does have some redness there. 5. Coronary artery disease, nonobstructive. 6. Diabetes mellitus type 2, on insulin with nephropathy and neuropathy. 7. Chronic kidney disease stage. 8. Hypertension. 9. Hyperlipidemia. 10. Hypothyroidism. 11. Obstructive sleep apnea. Treated with CPAP. 12. Morbid obesity. 13. Chronic venous insufficiency of the legs with left below-knee amputation, wearing a prosthesis. 14. Mild peripheral arterial disease. PLAN: At this time, was admitted to the hospital. Consult Dr. Charles for Cardiology. Consult Dr. Arnie Marquez for Infectious Disease. Get blood cultures x2. Urine culture has been ordered. Get a sputum culture. We will get a CAT scan of the chest, abdomen, and pelvis without contrast. CAT scan of the chest to rule out pneumonia. CAT scan of the abdomen and pelvis to look at the right upper quadrant, especially the gallbladder. X-ray showed evidence of acute cholecystitis. She did receive IV Rocephin once in the emergency room, started on IV Zosyn in case she does have pneumonia, but also in case she has acute cholecystitis. We will repeat CBC and BMP tomorrow. Put her on Lantus insulin on 26 units of Lantus and I will reduce it to 12 units of Lantus instead of 12 units of Humalog before meals we will reduce it to 40 units and hold for blood sugar less 90 before meal with low dose insulin sliding scale before meals t.i.d. on a diabetic diet. Check her blood sugars before meals t.i.d. and at bedtime. She will receive Zofran before meals t.i.d. and every 6 hours p.r.n. sleep and help improve her appetite. Continue her metoprolol and started her on aspirin 325 mg every day including a dose today. We will also repeat the echocardiogram unless she had one in October. We will continue with her other home medications including her metolazone, Robaxin, furosemide 40 mg p.o. b.i.d., and renew her potassium chloride. Check a lipid profile tomorrow also. She is not receiving any anticoagulation and we will put her on heparin 5000 units subcutaneous every 12 hours for deep vein thrombosis prophylaxis. We will put her on famotidine 20 mg once a day to help prevent stress ulcer. Thank you very much and we will do serial cardiac enzymes. LAURA/PHILIP DR: Pearl TID: [id number]
[2021-01-05] MEDS ORDERED: FUROSEMIDE 40 MG TABLET. PO SCH (14:00)
--- NOTE | 2021-01-05 14:57 | EKG ---
[facility] [address] [place] [address] Test Date: 2021-01-05 Test Time: 08:36:20 Pat Name: DIMAS REDMOND Department: Room: ED HOLD 20 Gender: F Engraver Seals: [id number] : 1940 Requested By: ARY MURILLO Order Number: [id number] Reading MD: Lincoln Powers Measurements Intervals [place] Rate: 69 P: -42 MO: 174 QRS: -44 QRSD: 130 T: 138 QT: 430 QTc: 462 Interpretive Statements SINUS RHYTHM ABNORMAL LEFT AXIS DEVIATION NON SPECIFIC INTRAVENTRICULAR BLOCK QRS(T) CONTOUR ABNORMALITY CONSISTENT WITH ANTEROSEPTAL INFARCT POSSIBLY RECENT ABNORMAL ECG Electronically Signed On 01-05-2021 20:59:53 CDT by Lincoln Powers
--- NOTE | 2021-01-05 14:57 | EKG ---
[facility] [address] [place] [address] Test Date: 2021-01-05 Test Time: 07:41:05 Pat Name: DIMAS REDMOND Department: Room: ED HOLD 20 Gender: F Wrapper Opener: [id number] : 1940 Requested By: ARY MURILLO Order Number: [id number] Reading MD: Lincoln Powers Measurements Intervals [place] Rate: 74 P: [place]: QRS: -45 QRSD: 132 T: 139 QT: 410 QTc: 461 Interpretive Statements ATRIAL FLUTTER ABNORMAL LEFT AXIS DEVIATION LEFT ANTERIOR FASCICULAR BLOCK NON SPECIFIC INTRAVENTRICULAR BLOCK QRS(T) CONTOUR ABNORMALITY CONSISTENT WITH ANTEROSEPTAL INFARCT PROBABLY OLD ABNORMAL ECG Electronically Signed On 01-05-2021 21:00:23 CDT by Lincoln Powers
--- NOTE | 2021-01-05 15:00 | EKG ---
[facility] [address] [place] [address] Test Date: 2021-01-05 Test Time: 10:02:43 Pat Name: DIMAS REDMOND Department: Room: ED HOLD 20 Gender: F Integrity Specialist: : 1940 Requested By: ARY MURILLO Order Number: [id number] Reading MD: Lincoln Powers Measurements Intervals [place] Rate: 69 P: 32 SC: 202 QRS: -44 QRSD: 130 T: 113 QT: 428 QTc: 460 Interpretive Statements SINUS RHYTHM ABNORMAL LEFT AXIS DEVIATION LEFT ANTERIOR FASCICULAR BLOCK NON SPECIFIC INTRAVENTRICULAR BLOCK QRS(T) CONTOUR ABNORMALITY CONSISTENT WITH ANTEROSEPTAL INFARCT PROBABLY OLD ABNORMAL ECG Electronically Signed On 01-05-2021 20:54:29 CDT by Lincoln Powers
[2021-01-05] MEDS ORDERED: MIDAZOLAM HCL/PF 5 MG/5 ML VIAL. ONE (16:07)
[2021-01-05] MEDS ORDERED: EPINEPHrine SYRINGE 1 MG/10 ML SYRINGE ONE (16:07)
[2021-01-05] MEDS ORDERED: ATROPINE 1 MG/10 ML DISP.SYRINGE. ONE (16:07)
[2021-01-05] MEDS ORDERED: SODIUM BICARB ADULT 8.4% 50 MEQ/50 ML DISP.SYRIN. ONE (16:07)
[2021-01-05 18:00] VITALS: BP 130/63
--- NOTE | 2021-01-05 18:22 | PDOC2 ---
CONSULT Date of Consult Date of Consult DATE: 01/05/21 TIME: 18:15 Reason for Consult Reason for Consult: Chest pain, coronary artery disease. Referring Physician Referring Physician: Dr. Lara Identification/Chief Complaint Chief Complaint Chest pain radiating to her left shoulder. Source Source: Chart review, Patient History of Present Illness Reason for Visit: The patient is a 80-year-old female with multiple medical problems who presented to the emergency room with episodes of left-sided chest pain radiating to her left shoulder and increasing shortness of breath. Her EKG shows a sinus rhythm with chronic anterior ST segment changes. Chest x-ray showed basilar infil trates and cardiomegaly. Initial troponin was mildly elevated on our new system at 713 with sequential measurements of 878 and 719. However BNP was significantly elevated at 20,042. The patient has been followed by our service and on her most recent catheterization on 05/06/20 showed a 60% nonsignificant proximal LAD lesion with a normal IFR measurement. It also showed a chronic occluded left circumflex with collateralization and a right coronary artery without significant lesions. An echocardiogram on 10/16/2020 showed an ejection fraction of 60% and mild mitral regurgitation. Patient is feeling mildly better at this time. She does have multiple medical issues which complicate interpretation of her symptoms. These include chronic diastolic heart failure, obstructive sleep apnea using a CPAP at night, hypertension and chronic kidney disease. Past Medical History Cardiovascular: CAD, CHF, HTN, Hyperlipidemia, Other Pulmonary: Bronchitis, Pneumonia, Other CENTRAL NERVOUS SYSTEM: Periperal neuropathy GI: Constipation Heme/Onc: Anemia NOS, Cancer Hepatobiliary: No pertinent hx Psych: Anxiety Musculoskeletal: Osteoarthritis Rheumatologic: No pertinent hx Infectious disease: Other Renal/: Chronic renal insuff, UTI, Urinary Incontinence Endocrine: Diabetes, Hypothyroidism Past Surgical History Past Surgical History: Appendectomy, Cataract Removal, Tonsillectomy, Hysterectomy (Left BKA), Other Family History Family History: Diabetes, Hypertension Social History No ALCOHOL: none Drugs: None Lives: with Family Current Problem List Problem List Problems Medical Problems: (1) CHF exacerbation Status: Acute (2) CKD (chronic kidney disease) Status: Acute (3) NSTEMI (non-ST elevated myocardial infarction) Status: Acute (4) Person under investigation for COVID-19 Status: Acute (5) Respiratory failure, unspecified with hypoxia Status: Acute (6) UTI (urinary tract infection) Status: Acute Current Medications Current Medications Current Medications Furosemide (Lasix) 80 mg 1X ONCE IVP Last administered on 01/05/21at 09:21; Start 01/05/21 at 09:00; Stop 01/05/21 at 09:01; Status DC Nitroglycerin (Nitrostat) 0.4 mg PRN Q5MIN PRN SL CHEST PAIN Last administered on 01/05/21at 10:19; Start 01/05/21 at 09:30 Ceftriaxone Sodium (Rocephin) 1 gm 1X ONCE IVP Last administered on 01/05/21at 12:41; Start 01/05/21 at 12:00; Stop 01/05/21 at 12:09; Status DC Aspirin (Raulito Aspirin) 325 mg DAILY PO Last administered on 01/05/21at 12:40; Start 01/05/21 at 12:00 Insulin Human Lispro (HumaLOG) 4 units TIDAC SQ ; Start 01/05/21 at 16:30 Insulin Glargine (Lantus Syringe) 12 unit QHS SQ ; Start 01/05/21 at 21:00 Insulin Human Lispro (HumaLOG) 0-8 UNITS TIDWMEALS SQ ; Start 01/05/21 at 17:00 Ondansetron HCl (Zofran Odt) 4 mg PRN Q6HRS PRN PO NAUSEA/VOMITING; Start 01/05/21 at 11:45 Ondansetron HCl (Zofran Odt) 4 mg TIDAC PO ; Start 01/05/21 at 12:00 Levothyroxine Sodium (Synthroid) 150 mcg DAILY06 PO ; Start 01/06/21 at 06:00 Furosemide (Lasix) 40 mg BID92 PO ; Start 01/05/21 at 14:00 Metolazone (Zaroxolyn) 2.5 mg MoWeFr@0900 PO ; Start 01/06/21 at 09:00 Potassium Chloride (Klor-Con) 20 meq BID PO ; Start 01/05/21 at 21:00 Metoprolol Succinate (Toprol Xl) 50 mg DAILY PO ; Start 01/06/21 at 09:00 Amlodipine Besylate (Norvasc) 5 mg DAILY PO ; Start 01/06/21 at 09:00 Senna/Docusate Sodium (Senna Plus) 2 tab QHS PO ; Start 01/05/21 at 21:00 Allopurinol (Zyloprim) 100 mg DAILY PO ; Start 01/06/21 at 09:00 Atorvastatin Calcium (Lipitor) 40 mg QHS PO ; Start 01/05/21 at 21:00 Paroxetine HCl (Paxil) 20 mg DAILY PO ; Start 01/06/21 at 09:00 Piperacillin Sod/ Tazobactam Sod 3.375 gm/Sodium Chloride 50 ml @ 100 mls/hr Q6HRS IV Last administered on 01/05/21at 13:16; Start 01/05/21 at 12:00 Heparin Sodium (Porcine) (Heparin Sodium) 5,000 unit Q12HR SQ ; Start 01/05/21 at 21:00 Famotidine (Pepcid) 20 mg QHS PO ; Start 01/05/21 at 21:00 Acetaminophen (Tylenol) 650 mg PRN Q6HRS PRN PO MILD PAIN / TEMP > 100.3'F; Start 01/05/21 at 12:15 Active Scripts Active Cephalexin 500 Mg Tablet 1 Tab PO TID 7 Days Thera-M Tablet (Multivits,Ca,Minerals/Iron/Fa) 1 Each Tablet 1 Tab PO DAILY Vitamin C (Ascorbic Acid) 500 Mg Tablet 500 Mg PO DAILY Lantus (Insulin Glargine,Hum.rec.anlog) 100 Unit/1 Ml Vial 12 Unit SQ QHS Metolazone 2.5 Mg Tablet 2.5 Mg PO QMWF Klor-Con M20 (Potassium Chloride) 20 Meq Tab.er.prt 20 Meq PO BID Toprol XL (Metoprolol Succinate) 50 Mg Tab.er.24h 50 Mg PO DAILY Furosemide 40 Mg Tablet 40 Mg PO BID Amlodipine Besylate 5 Mg Tablet 5 Mg PO DAILY Atorvastatin Calcium 40 Mg Tablet 40 Mg PO QHS Admelog (Insulin Lispro) 100 Unit/1 Ml Vial 6 Units SQ TIDAC hold if blood sugar less than 90 before a meal Nyamyc (Nystatin) 15 Gm Powder 1 Renee TP BID Stool Soft-Stimulant Lax Tab (Sennosides/Docusate Sodium) 1 Each Tablet 2 Tab PO DAILY Feosol (Ferrous Sulfate) 325 Mg Tablet 325 Mg PO QODAY Synthroid (Levothyroxine Sodium) 150 Mcg Tablet 150 Mcg PO DAILY06 Allopurinol 100 Mg Tablet 100 Mg PO DAILY Paroxetine Hcl 20 Mg Tablet 20 Mg PO DAILY Reported Aspirin 81 Mg Tab.chew 81 Mg PO HS Tylenol (Acetaminophen) 325 Mg Tablet 650 Mg PO PRN Q4HRS Allergies Allergies: Coded Allergies: lisinopril (Verified Allergy, Severe, THROAT, TONGUE SWELLING, 01/05/21) adhesive (Verified Allergy, Intermediate, TAPE-RED SKIN, 01/05/21) sertraline HCl (Verified Allergy, Intermediate, 01/05/21) I S O L A T I O N *CONTACT* (Verified Allergy, Unknown, 01/05/21) ESBL morphine (Verified Adverse Reaction, Intermediate, Nausea, 01/05/21) ROS Respiratory: YES: Shortness of breath, SOB with excertion Cardiovascular: yes Chest Pain Physical Exam General: mild distress HEENT: Atraumatic Lungs: Other (Decreased breath sounds) Heart: Regular rate Abdomen: Normal bowel sounds Vitals VITALS Vital Signs Date Time Temp Pulse Resp B/P (MAP) Pulse Ox O2 Delivery O2 Flow Rate FiO2 01/05/21 14:53 64 20 136/67 (90) 97 Nasal Cannula 2.0 01/05/21 07:30 98.2 98.2 Labs Labs Laboratory Tests Test 01/05/21 07:44 01/05/21 07:46 01/05/21 07:57 01/05/21 08:30 SARS-CoV-2 RNA (LISA) Negative (Negative) SARS-CoV-2 Antigen (Rapid) Negative (NEGATIVE) Influenza Type A Antigen Negative (NEGATIVE) Influenza Type B Antigen Negative (NEGATIVE) White Blood Count 20.1 x10^3/uL (4.0-11.0) Red Blood Count 4.37 x10^6/uL (3.50-5.40) Hemoglobin 11.9 g/dL (12.0-15.5) Hematocrit 37.1 % (36.0-47.0) Mean Corpuscular Volume 85 fL (79-100) Mean Corpuscular Hemoglobin 27 pg (25-35) Mean Corpuscular Hemoglobin Concent 32 g/dL (31-37) Red Cell Distribution Width 14.1 % (11.5-14.5) Platelet Count 275 x10^3/uL (140-400) Neutrophils (%) (Auto) 87 % (31-73) Lymphocytes (%) (Auto) 5 % (24-48) Monocytes (%) (Auto) 7 % (0-9) Eosinophils (%) (Auto) 0 % (0-3) Basophils (%) (Auto) 1 % (0-3) Neutrophils # (Auto) 17.5 x10^3/uL (1.8-7.7) Lymphocytes # (Auto) 1.0 x10^3/uL (1.0-4.8) Monocytes # (Auto) 1.4 x10^3/uL (0.0-1.1) Eosinophils # (Auto) 0.1 x10^3/uL (0.0-0.7) Basophils # (Auto) 0.1 x10^3/uL (0.0-0.2) Segmented Neutrophils % 87 % (35-66) Band Neutrophils % 2 % (0-9) Lymphocytes % 6 % (24-48) Monocytes % 5 % (0-10) Platelet Estimate Adequate (ADEQUATE) Sodium Level 138 mmol/L (136-145) Potassium Level 3.8 mmol/L (3.5-5.1) Chloride Level 100 mmol/L (98-107) Carbon Dioxide Level 31 mmol/L (21-32) Anion Gap 7 (6-14) Blood Urea Nitrogen 46 mg/dL (7-20) Creatinine 1.7 mg/dL (0.6-1.0) Estimated GFR (Cockcroft-Gault) 29.0 Glucose Level 176 mg/dL (70-99) Calcium Level 8.9 mg/dL (8.5-10.1) Magnesium Level 2.1 mg/dL (1.8-2.4) Total Bilirubin 0.7 mg/dL (0.2-1.0) Direct Bilirubin 0.2 mg/dL (0.0-0.2) Aspartate Amino Transf (AST/SGOT) 21 U/L (15-37) Alanine Aminotransferase (ALT/SGPT) 23 U/L (14-59) Alkaline Phosphatase 100 U/L (46-116) Troponin I High Sensitivity 713 ng/L (4-50) BD-Syb-V-Type Natriuretic Peptide 96052 pg/mL (0-449) Total Protein 8.2 g/dL (6.4-8.2) Albumin 3.3 g/dL (3.4-5.0) Lipase 64 U/L (73-393) O2 Saturation 90 % (92-99) Arterial Blood pH 7.42 (7.35-7.45) Arterial Blood pCO2 at Patient Temp 43 mmHg (35-46) Arterial Blood pO2 at Patient Temp 62 mmHg (65-108) Arterial Blood HCO3 27 mmol/L (21-28) Arterial Blood Base Excess 2 mmol/L (-3-3) Oxyhemoglobin 89.5 % Methemoglobin 0.2 % (0.0-1.9) Carbon Monoxide, Quantitative 0.3 % (0.0-1.9) FiO2 21 Test 01/05/21 09:45 01/05/21 12:17 01/05/21 12:20 01/05/21 14:55 Urine Collection Type Void Urine Color Yellow Urine Clarity Clear Urine pH 5.0 (<5.0-8.0) Urine Specific [place] 1.015 (1.000-1.030) Urine Protein 30 mg/dL (NEG-TRACE) Urine Glucose (UA) Negative mg/dL (NEG) Urine Ketones (Stick) Negative mg/dL (NEG) Urine Blood Negative (NEG) Urine Nitrite Negative (NEG) Urine Bilirubin Negative (NEG) Urine Urobilinogen Dipstick 0.2 mg/dL (0.2 mg/dL) Urine Leukocyte Esterase Trace (NEG) Urine RBC 1-2 /HPF (0-2) Urine WBC 5-10 /HPF (0-4) Urine Bacteria Many /HPF (0-FEW) Urine Hyaline Casts Few /HPF Urine Mucus Mod /LPF Urine Opiates Screen Neg (NEG) Urine Methadone Screen Neg (NEG) Urine Barbiturates Neg (NEG) Urine Phencyclidine Screen Neg (NEG) Urine Amphetamine/Methamphetamine Neg (NEG) Urine Benzodiazepines Screen Neg (NEG) Urine Cocaine Screen Neg (NEG) Urine Cannabinoids Screen Neg (NEG) Urine Ethyl Alcohol Neg (NEG) Glucose (Fingerstick) 178 mg/dL (70-99) Troponin I High Sensitivity 878 ng/L (4-50) 719 ng/L (4-50) Laboratory Tests Test 01/05/21 07:44 01/05/21 07:46 01/05/21 07:57 01/05/21 08:30 SARS-CoV-2 RNA (LISA) Negative (Negative) SARS-CoV-2 Antigen (Rapid) Negative (NEGATIVE) Influenza Type A Antigen Negative (NEGATIVE) Influenza Type B Antigen Negative (NEGATIVE) White Blood Count 20.1 x10^3/uL (4.0-11.0) Red Blood Count 4.37 x10^6/uL (3.50-5.40) Hemoglobin 11.9 g/dL (12.0-15.5) Hematocrit 37.1 % (36.0-47.0) Mean Corpuscular Volume 85 fL (79-100) Mean Corpuscular Hemoglobin 27 pg (25-35) Mean Corpuscular Hemoglobin Concent 32 g/dL (31-37) Red Cell Distribution Width 14.1 % (11.5-14.5) Platelet Count 275 x10^3/uL (140-400) Neutrophils (%) (Auto) 87 % (31-73) Lymphocytes (%) (Auto) 5 % (24-48) Monocytes (%) (Auto) 7 % (0-9) Eosinophils (%) (Auto) 0 % (0-3) Basophils (%) (Auto) 1 % (0-3) Neutrophils # (Auto) 17.5 x10^3/uL (1.8-7.7) Lymphocytes # (Auto) 1.0 x10^3/uL (1.0-4.8) Monocytes # (Auto) 1.4 x10^3/uL (0.0-1.1) Eosinophils # (Auto) 0.1 x10^3/uL (0.0-0.7) Basophils # (Auto) 0.1 x10^3/uL (0.0-0.2) Segmented Neutrophils % 87 % (35-66) Band Neutrophils % 2 % (0-9) Lymphocytes % 6 % (24-48) Monocytes % 5 % (0-10) Platelet Estimate Adequate (ADEQUATE) Sodium Level 138 mmol/L (136-145) Potassium Level 3.8 mmol/L (3.5-5.1) Chloride Level 100 mmol/L (98-107) Carbon Dioxide Level 31 mmol/L (21-32) Anion Gap 7 (6-14) Blood Urea Nitrogen 46 mg/dL (7-20) Creatinine 1.7 mg/dL (0.6-1.0) Estimated GFR (Cockcroft-Gault) 29.0 Glucose Level 176 mg/dL (70-99) Calcium Level 8.9 mg/dL (8.5-10.1) Magnesium Level 2.1 mg/dL (1.8-2.4) Total Bilirubin 0.7 mg/dL (0.2-1.0) Direct Bilirubin 0.2 mg/dL (0.0-0.2) Aspartate Amino Transf (AST/SGOT) 21 U/L (15-37) Alanine Aminotransferase (ALT/SGPT) 23 U/L (14-59) Alkaline Phosphatase 100 U/L (46-116) Troponin I High Sensitivity 713 ng/L (4-50) GA-Cnh-Y-Type Natriuretic Peptide 71707 pg/mL (0-449) Total Protein 8.2 g/dL (6.4-8.2) Albumin 3.3 g/dL (3.4-5.0) Lipase 64 U/L (73-393) O2 Saturation 90 % (92-99) Arterial Blood pH 7.42 (7.35-7.45) Arterial Blood pCO2 at Patient Temp 43 mmHg (35-46) Arterial Blood pO2 at Patient Temp 62 mmHg (65-108) Arterial Blood HCO3 27 mmol/L (21-28) Arterial Blood Base Excess 2 mmol/L (-3-3) Oxyhemoglobin 89.5 % Methemoglobin 0.2 % (0.0-1.9) Carbon Monoxide, Quantitative 0.3 % (0.0-1.9) FiO2 21 Test 01/05/21 09:45 01/05/21 12:17 01/05/21 12:20 01/05/21 14:55 Urine Collection Type Void Urine Color Yellow Urine Clarity Clear Urine pH 5.0 (<5.0-8.0) Urine Specific [place] 1.015 (1.000-1.030) Urine Protein 30 mg/dL (NEG-TRACE) Urine Glucose (UA) Negative mg/dL (NEG) Urine Ketones (Stick) Negative mg/dL (NEG) Urine Blood Negative (NEG) Urine Nitrite Negative (NEG) Urine Bilirubin Negative (NEG) Urine Urobilinogen Dipstick 0.2 mg/dL (0.2 mg/dL) Urine Leukocyte Esterase Trace (NEG) Urine RBC 1-2 /HPF (0-2) Urine WBC 5-10 /HPF (0-4) Urine Bacteria Many /HPF (0-FEW) Urine Hyaline Casts Few /HPF Urine Mucus Mod /LPF Urine Opiates Screen Neg (NEG) Urine Methadone Screen Neg (NEG) Urine Barbiturates Neg (NEG) Urine Phencyclidine Screen Neg (NEG) Urine Amphetamine/Methamphetamine Neg (NEG) Urine Benzodiazepines Screen Neg (NEG) Urine Cocaine Screen Neg (NEG) Urine Cannabinoids Screen Neg (NEG) Urine Ethyl Alcohol Neg (NEG) Glucose (Fingerstick) 178 mg/dL (70-99) Troponin I High Sensitivity 878 ng/L (4-50) 719 ng/L (4-50) Images Images As above. Assessment/Plan Assessment/Plan 1. Chest pain. Patient has left-sided chest pain with radiation to her left shoulder and increasing shortness of breath. As noted above her troponin levels are mildly elevated but her EKG shows no new acute ischemic changes. Catheterization earlier this year as noted above as well as echo. At this time we will continue medical treatment. We will treat for heart failure. Anticoagulation as above. 2. Acute on chronic diastolic heart failure. Recent testing as above. Continue present treatment with diuresis as tolerated. 3. Hypertension. Continue baseline medications with monitoring. 4. Chronic kidney disease. We will continue to monitor lab with the patient is carefully diuresed. 5. Obstructive sleep apnea with CPAP at night. 6. Diabetes mellitus. Continue present medications as per the primary service. JOAQUIM LI MD Jan 05, 2021 18:22
[2021-01-05] MEDS ORDERED: HEPARIN for SUB-Q USE 5,000 UNIT/ML VIAL. SQ SCH (21:00)
[2021-01-05 22:40] VITALS: BP 147/78
[2021-01-05] MEDS: ATORVASTATIN CALCIUM 40 MG TABLET. PO SCH (23:33)
[2021-01-05] MEDS: POTASSIUM CHLORIDE 20 MEQ TABLET.ER. PO SCH (23:34)
[2021-01-05] MEDS: ONDANSETRON ODT 4 MG TAB.RAPDIS. PO SCH (23:34)
[2021-01-05] MEDS: FAMOTIDINE 20 MG TABLET. PO SCH (23:35)
[2021-01-05] MEDS: SENNOSIDES/DOCUSATE 8.6/50MG TABLET. PO SCH (23:36)
[2021-01-05] MEDS: INSULIN GLARGINE SYRINGE. SQ SCH (23:39)
[2021-01-05] MEDS: INSULIN LISPRO 300 UNITS/3 ML VIAL. SQ SCH ×2 (23:40→23:41)
[2021-01-05] MEDS: HEPARIN 25,000UTS/250ML PREMIX 250 ML IV PRN (23:47)
--- NOTE | 2021-01-06 00:13 | RAD ---
PQRS Compliance Statement: One or more of the following individualized dose reduction techniques were utilized for this examinat ion: 1. Automated exposure control 2. Adjustment of the mA and/or kV according to patient size 3. Use of iterative reconstruction technique CT CHEST_ABDOMEN_ AND PELVIS WITHOUT CONTRAST 01/05/2021 8:56 PM INDICATION: Leukocytosis. Right upper quadrant abdominal pain. Cough. COMPARISON: CT abdomen/pelvis 05/19/2019 TECHNIQUE: Multiple axial CT images of the chest, abdomen and pelvis were obtained after without intr avenous contrast. Coronal and sagittal reformats are provided. FINDINGS: Thyroid gland is normal in appearance. Right paratracheal lymph node measures 1.1 cm (series 2, image 15). Heart size is within normal limits. Three-vessel coronary vascular calcifications are present. Thoracic aorta is normal in course and caliber. Thoracic esophagus is normal in appearance. Small luisa ateral pleural effusions with adjacent compressive atelectasis versus infiltrate. Pulmonary vascular congestion. No pneumothorax. Evaluation of solid abdominal viscera is limited by lack of contrast contrast. Liver, spleen and adre nal glands are normal in appearance. Gallbladder is present without adjacent inflammation. Moderate t o advanced fatty atrophy of the pancreas. Abdominal aorta is normal in course and caliber with dense calcified atheromatous plaque involving the abdominal aorta and mesenteric vasculature. There is a re troaortic left renal vein. No pathologically enlarged lymph nodes identified in abdomen and pelvis. T here is no free fluid or free intraperitoneal air. 1.3 cm calculus identified within the superior cody e left kidney. 4 mm nonobstructing calculus identified in the interpolar left kidney. No hydronephros is or suspicious renal mass. Urinary bladder within normal limits given degree of distention. No susp icious pelvic mass. Small large bowel are normal in caliber. No bowel obstruction or inflammation. Ap pendix is not definitively visualized. There is skin thickening along the inferior aspect of the [place] with subcutaneous edema. Correlate with cellulitis. No suspicious osseous abnormality is identified. IMPRESSION: 1. Small bilateral pleural effusions with adjacent compressive atelectasis versus infiltrate. Mild pu lmonary vascular congestion as may be seen with mild congestive heart failure. Three-vessel coronary artery vascular opacifications are present. 2. Nonobstructing calculi identified in the mid to superior pole left kidney measuring up to 1.3 cm. No hydronephrosis or obstructive uropathy. 3. 1.1 cm right paratracheal lymph node may be reactive. Electronically signed by: Lakia Rain MD (01/06/2021 12:10 AM) [facility]
[2021-01-06 02:37] VITALS: BP 118/58
[2021-01-06 04:03] LABS: BASO % 0 % (0-3); EOS # 0.1 x10^3/uL (0.0-0.7); EOS % 1 % (0-3); HEMATOCRIT 33.2 % (36.0-47.0); HEMOGLOBIN 10.4 g/dL (12.0-15.5); LYMPH # 1.3 x10^3/uL (1.0-4.8); LYMPH % 11 % (24-48); MEAN CORPUSCULAR HEMOGLOBIN 27 pg (25-35); MEAN CORPUSCULAR HGB CONC 31 g/dL (31-37); MEAN CORPUSCULAR VOLUME 85 fL (79-100); MONO # 1.3 x10^3/uL (0.0-1.1); MONO % 11 % (0-9); NEUT # 9.6 x10^3/uL (1.8-7.7); NEUT % 78 % (31-73); PLATELET COUNT 219 x10^3/uL (140-400); RED BLOOD COUNT 3.91 x10^6/uL (3.50-5.40); RED CELL DISTRIBUTION WIDTH 14.3 % (11.5-14.5); WHITE BLOOD COUNT 12.3 x10^3/uL (4.0-11.0)
[2021-01-06 04:27] LABS: ALBUMIN 2.7 g/dL (3.4-5.0); ALBUMIN/GLOBULIN RATIO 0.6 (1.0-1.7); CALCIUM 8.5 mg/dL (8.5-10.1); CREATININE 1.7 mg/dL (0.6-1.0); POTASSIUM 3.3 mmol/L (3.5-5.1); TOTAL BILIRUBIN 0.6 mg/dL (0.2-1.0); TOTAL PROTEIN 7.2 g/dL (6.4-8.2)
[2021-01-06 04:38] LABS: CHOLESTEROL/HDL RATIO 1.7
[2021-01-06] MEDS: LEVOTHYROXINE 150 MCG TABLET PO SCH (06:07)
[2021-01-06] MEDS: PIPERACILLIN/TAZOBACTAM 3.375 GM in IV NORMAL SALINE 50ML 50 ML IV SCH (06:08)
[2021-01-06 06:28] VITALS: BP 129/58
[2021-01-06] MEDS ORDERED: PERFLUTREN PROTEIN-A MICROSPHR 0.22 MG/ML 3 ML VIAL. IV ONE ×3 (07:20→08:15)
[2021-01-06] MEDS: INSULIN LISPRO 300 UNITS/3 ML VIAL. SQ SCH ×6 (07:30→17:01)
[2021-01-06] MEDS: ASPIRIN 325 MG TABLET PO SCH (08:37)
[2021-01-06] MEDS: metOLazone 2.5 MG TABLET PO SCH (08:37)
[2021-01-06] MEDS: METOPROLOL SUCC 24HR ER 50 MG TAB.ER.24H. PO SCH (08:38)
[2021-01-06] MEDS: PARoxetine 20 MG TABLET PO SCH (08:38)
[2021-01-06] MEDS: POTASSIUM CHLORIDE 20 MEQ TABLET.ER. PO SCH ×3 (08:38→23:21)
[2021-01-06] MEDS: ALLOPURINOL 100 MG TABLET. PO SCH (08:38)
[2021-01-06] MEDS: ONDANSETRON ODT 4 MG TAB.RAPDIS. PO SCH ×3 (08:38→16:54)
--- NOTE | 2021-01-06 09:28 | CARD ---
MR#: [id number] Date of Study: 01/06/2021 Ordering Physician: TERE ALLISON, Referring Physician: TERE ALLISON, Tech: Marine Rhoades [facility] APPROVED REPORT EXAM: Two-dimensional and M-mode echocardiogram with Doppler and color Doppler. Other Information Quality : Technically LimitedHR: 73bpm Rhythm : NSR INDICATION Cardiac Disease: CAD Non STEMI RISK FACTORS Hypertension Obesity Hyperlipidemia 2D DIMENSIONS RVDd2.9 (2.9-3.5cm)Left Atrium(2D)3.8 (1.6-4.0cm) IVSd1.2 (0.7-1.1cm)Aortic Root(2D)2.7 (2.0-3.7cm) LVDd4.7 (3.9-5.9cm)LVOT Diameter2.1 (1.8-2.4cm) PWd1.2 (0.7-1.1cm)LVDs3.0 (2.5-4.0cm) FS (%) 34.8 %SV64.5 ml LVEF(%)64.0 (>50%) Aortic Valve AoV Peak Sheldon.128.6cm/sAoV VTI32.5cm AO Peak GR.6.6mmHgLVOT Peak Sheldon.67.4cm/s AO Mean GR.4mmHgAVA (VMAX)1.85cm2 Mitral Valve MV E Wxzwzvdk82.2cm/sMV DECEL [id number] MV A Cgnlqosn779.4cm/sE/A Ratio0.8 Pulmonary Valve PV Peak Vjfapnxh288.3cm/s Tricuspid Valve TR P. [id number]/sTR Peak Gr.38mmHg LEFT VENTRICLE The left ventricle is normal size. There is mild concentric left ventricular hypertrophy. The left ve ntricular systolic function is severely impaired. Based on the pattern of contractility, cannot rule out Takotsubo's cardiomyopathy. Estimated ejection fraction 25%. Transmitral Doppler flow pattern is Grade I-abnormal relaxation pattern. RIGHT VENTRICLE The right ventricle is normal size. The right ventricle is mildly hypertrophied. The right ventricula r systolic function is normal. ATRIA The left atrium size is normal. The right atrium size is normal. The interatrial septum is intact wit h no evidence for an atrial septal defect or patent foramen ovale as noted on 2-D or Doppler imaging. AORTIC VALVE The aortic valve is normal in structure and function. Doppler and Color Flow revealed no significant aortic regurgitation. There is no significant aortic valvular stenosis. MITRAL VALVE The mitral valve is normal in structure and function. There is no evidence of mitral valve prolapse. There is no mitral valve stenosis. Doppler and Color-flow revealed mild mitral regurgitation. TRICUSPID VALVE The tricuspid valve is normal in structure and function. Doppler and Color Flow revealed mild tricusp id regurgitation. Estimated ejection fraction 53 mmHg. There is no tricuspid valve stenosis. PULMONIC VALVE Doppler and Color Flow revealed no pulmonic valvular regurgitation. GREAT VESSELS The aortic root is normal in size. The ascending aorta is normal in size. The IVC is dilated and edmar apses <50% with inspiration. PERICARDIAL EFFUSION There is no evidence of significant pericardial effusion. Critical Notification Critical Value: No <Conclusion> Technically difficult study. Optison echo contrast used. The left ventricular systolic function is severely impaired. Pattern of contractility suspicous for Takotsubo's cardiomyopathy. Estimated ejection fraction 25%. Transmitral Doppler flow pattern is Grade I-abnormal relaxation pattern. Mild mitral regurgitation. Mild tricuspid regurgitation. Estimated ejection fraction 53 mmHg. There is no evidence of significant pericardial effusion. Signed by : Lincoln Powers, Electronically Approved : 01/06/2021 09:28:02
[2021-01-06] MEDS: HEPARIN for IV BOLUS 10,000 UNIT/10 ML VIAL. IV PRN ×2 (10:24→21:30)
--- NOTE | 2021-01-06 10:48 | PDOC ---
PROGRESS NOTES Date of Service DATE: 01/06/21 TIME: 10:42 Subjective Subjective not short of breath. no chest pain. echo showed LVEF 25%. ct scan results noted. wbc lower 12K. cough less Objective Objective Vital Signs Date Time Temp Pulse Resp B/P (MAP) Pulse Ox O2 Delivery O2 Flow Rate FiO2 01/06/21 08:38 70 129/58 01/06/21 08:00 Nasal Cannula 2.0 01/06/21 06:28 97.8 16 94 97.8 Intake and Output 01/06/21 07:00 Intake Total 160 ml Output Total 100 ml Balance 60 ml Intake Oral 60 ml IV Total 100 ml Output Urine Total 100 ml Physical Exam Abdomen: Soft, Other (obese) Heart: Regular rate, Normal S1, Normal S2 Extremities: Other (1 plus edema RLE) General: Alert HEENT: Atraumatic Lungs: Clear to auscultation Neuro: Normal speech Psych/Mental Status: Mental status NL Skin: Other (mild erythema pretibial RLE with 2 plus edema and left BKA/) Assessment Assessment Problems1. Chest pain, resolved with sublingual nitroglycerin. 2. Non-ST segment elevated myocardial infarction. 3. 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 Leukocytosis improved 5. Coronary artery disease, nonobstructive. 60% LAD 05/26 per cardiac cath 6. Diabetes mellitus type 2, on insulin with nephropathy and neuropathy. 7. Chronic kidney disease stage.3 8. Hypertension. 9. Hyperlipidemia. 10. Hypothyroidism. 11. Obstructive sleep apnea. Treated with CPAP. 12. Morbid obesity. 13. Chronic venous insufficiency of the legs with left below-knee amputation, severe protein calorie malnutrition hypokalemia wearing a prosthesis. 14. Mild peripheral arterial disease. Medical Problems: (1) CHF exacerbation Status: Acute (2) CKD (chronic kidney disease) Status: Acute (3) NSTEMI (non-ST elevated myocardial infarction) Status: Acute (4) Person under investigation for COVID-19 Status: Acute (5) Respiratory failure, unspecified with hypoxia Status: Acute (6) UTI (urinary tract infection) Status: Acute Plan Plan of Care switch to iv lasix and continue metolazone replete kcl place erickson catheter continue iv heparin continue metoprolol continue IV zosyn lab tomorrow ID consult. discussed with ID who will see her this morning Comment Review of Relevant I have reviewed the following items helio (where applicable) has been applied. Labs Laboratory Tests Test 01/05/21 07:44 01/05/21 07:46 01/05/21 07:57 01/05/21 08:30 SARS-CoV-2 RNA (LISA) Negative (Negative) SARS-CoV-2 Antigen (Rapid) Negative (NEGATIVE) Influenza Type A Antigen Negative (NEGATIVE) Influenza Type B Antigen Negative (NEGATIVE) White Blood Count 20.1 x10^3/uL (4.0-11.0) Red Blood Count 4.37 x10^6/uL (3.50-5.40) Hemoglobin 11.9 g/dL (12.0-15.5) Hematocrit 37.1 % (36.0-47.0) Mean Corpuscular Volume 85 fL (79-100) Mean Corpuscular Hemoglobin 27 pg (25-35) Mean Corpuscular Hemoglobin Concent 32 g/dL (31-37) Red Cell Distribution Width 14.1 % (11.5-14.5) Platelet Count 275 x10^3/uL (140-400) Neutrophils (%) (Auto) 87 % (31-73) Lymphocytes (%) (Auto) 5 % (24-48) Monocytes (%) (Auto) 7 % (0-9) Eosinophils (%) (Auto) 0 % (0-3) Basophils (%) (Auto) 1 % (0-3) Neutrophils # (Auto) 17.5 x10^3/uL (1.8-7.7) Lymphocytes # (Auto) 1.0 x10^3/uL (1.0-4.8) Monocytes # (Auto) 1.4 x10^3/uL (0.0-1.1) Eosinophils # (Auto) 0.1 x10^3/uL (0.0-0.7) Basophils # (Auto) 0.1 x10^3/uL (0.0-0.2) Segmented Neutrophils % 87 % (35-66) Band Neutrophils % 2 % (0-9) Lymphocytes % 6 % (24-48) Monocytes % 5 % (0-10) Platelet Estimate Adequate (ADEQUATE) Sodium Level 138 mmol/L (136-145) Potassium Level 3.8 mmol/L (3.5-5.1) Chloride Level 100 mmol/L (98-107) Carbon Dioxide Level 31 mmol/L (21-32) Anion Gap 7 (6-14) Blood Urea Nitrogen 46 mg/dL (7-20) Creatinine 1.7 mg/dL (0.6-1.0) Estimated GFR (Cockcroft-Gault) 29.0 Glucose Level 176 mg/dL (70-99) Calcium Level 8.9 mg/dL (8.5-10.1) Magnesium Level 2.1 mg/dL (1.8-2.4) Total Bilirubin 0.7 mg/dL (0.2-1.0) Direct Bilirubin 0.2 mg/dL (0.0-0.2) Aspartate Amino Transf (AST/SGOT) 21 U/L (15-37) Alanine Aminotransferase (ALT/SGPT) 23 U/L (14-59) Alkaline Phosphatase 100 U/L (46-116) Troponin I High Sensitivity 713 ng/L (4-50) HW-Svl-P-Type Natriuretic Peptide 36483 pg/mL (0-449) Total Protein 8.2 g/dL (6.4-8.2) Albumin 3.3 g/dL (3.4-5.0) Lipase 64 U/L (73-393) O2 Saturation 90 % (92-99) Arterial Blood pH 7.42 (7.35-7.45) Arterial Blood pCO2 at Patient Temp 43 mmHg (35-46) Arterial Blood pO2 at Patient Temp 62 mmHg (65-108) Arterial Blood HCO3 27 mmol/L (21-28) Arterial Blood Base Excess 2 mmol/L (-3-3) Oxyhemoglobin 89.5 % Methemoglobin 0.2 % (0.0-1.9) Carbon Monoxide, Quantitative 0.3 % (0.0-1.9) FiO2 21 Test 01/05/21 09:45 01/05/21 12:17 01/05/21 12:20 01/05/21 14:55 Urine Collection Type Void Urine Color Yellow Urine Clarity Clear Urine pH 5.0 (<5.0-8.0) Urine Specific Felda 1.015 (1.000-1.030) Urine Protein 30 mg/dL (NEG-TRACE) Urine Glucose (UA) Negative mg/dL (NEG) Urine Ketones (Stick) Negative mg/dL (NEG) Urine Blood Negative (NEG) Urine Nitrite Negative (NEG) Urine Bilirubin Negative (NEG) Urine Urobilinogen Dipstick 0.2 mg/dL (0.2 mg/dL) Urine Leukocyte Esterase Trace (NEG) Urine RBC 1-2 /HPF (0-2) Urine WBC 5-10 /HPF (0-4) Urine Bacteria Many /HPF (0-FEW) Urine Hyaline Casts Few /HPF Urine Mucus Mod /LPF Urine Opiates Screen Neg (NEG) Urine Methadone Screen Neg (NEG) Urine Barbiturates Neg (NEG) Urine Phencyclidine Screen Neg (NEG) Urine Amphetamine/Methamphetamine Neg (NEG) Urine Benzodiazepines Screen Neg (NEG) Urine Cocaine Screen Neg (NEG) Urine Cannabinoids Screen Neg (NEG) Urine Ethyl Alcohol Neg (NEG) Glucose (Fingerstick) 178 mg/dL (70-99) Troponin I High Sensitivity 878 ng/L (4-50) 719 ng/L (4-50) Test 01/05/21 19:31 01/06/21 03:30 01/06/21 05:30 01/06/21 07:08 Glucose (Fingerstick) 311 mg/dL (70-99) 181 mg/dL (70-99) White Blood Count 12.3 x10^3/uL (4.0-11.0) Red Blood Count 3.91 x10^6/uL (3.50-5.40) Hemoglobin 10.4 g/dL (12.0-15.5) Hematocrit 33.2 % (36.0-47.0) Mean Corpuscular Volume 85 fL (79-100) Mean Corpuscular Hemoglobin 27 pg (25-35) Mean Corpuscular Hemoglobin Concent 31 g/dL (31-37) Red Cell Distribution Width 14.3 % (11.5-14.5) Platelet Count 219 x10^3/uL (140-400) Neutrophils (%) (Auto) 78 % (31-73) Lymphocytes (%) (Auto) 11 % (24-48) Monocytes (%) (Auto) 11 % (0-9) Eosinophils (%) (Auto) 1 % (0-3) Basophils (%) (Auto) 0 % (0-3) Neutrophils # (Auto) 9.6 x10^3/uL (1.8-7.7) Lymphocytes # (Auto) 1.3 x10^3/uL (1.0-4.8) Monocytes # (Auto) 1.3 x10^3/uL (0.0-1.1) Eosinophils # (Auto) 0.1 x10^3/uL (0.0-0.7) Basophils # (Auto) 0.0 x10^3/uL (0.0-0.2) Sodium Level 139 mmol/L (136-145) Potassium Level 3.3 mmol/L (3.5-5.1) Chloride Level 101 mmol/L (98-107) Carbon Dioxide Level 32 mmol/L (21-32) Anion Gap 6 (6-14) Blood Urea Nitrogen 45 mg/dL (7-20) Creatinine 1.7 mg/dL (0.6-1.0) Estimated GFR (Cockcroft-Gault) 29.0 BUN/Creatinine Ratio 26 (6-20) Glucose Level 153 mg/dL (70-99) Calcium Level 8.5 mg/dL (8.5-10.1) Magnesium Level 2.1 mg/dL (1.8-2.4) Total Bilirubin 0.6 mg/dL (0.2-1.0) Aspartate Amino Transf (AST/SGOT) 12 U/L (15-37) Alanine Aminotransferase (ALT/SGPT) 18 U/L (14-59) Alkaline Phosphatase 76 U/L (46-116) Total Protein 7.2 g/dL (6.4-8.2) Albumin 2.7 g/dL (3.4-5.0) Albumin/Globulin Ratio 0.6 (1.0-1.7) Triglycerides Level 37 mg/dL (0-150) Cholesterol Level 85 mg/dL (0-200) LDL Cholesterol, Calculated 28 mg/dL (0-100) VLDL Cholesterol, Calculated 7 mg/dL (0-40) Non-HDL Cholesterol Calculated 35 mg/dL (0-129) HDL Cholesterol 50 mg/dL (40-60) Cholesterol/HDL Ratio 1.7 Heparin Anti-Xa Act, Unfractionated < 0.10 IU/mL (0.30-0.70) Laboratory Tests Test 01/05/21 12:17 01/05/21 12:20 01/05/21 14:55 01/05/21 19:31 Glucose (Fingerstick) 178 mg/dL (70-99) 311 mg/dL (70-99) Troponin I High Sensitivity 878 ng/L (4-50) 719 ng/L (4-50) Test 01/06/21 03:30 01/06/21 05:30 01/06/21 07:08 White Blood Count 12.3 x10^3/uL (4.0-11.0) Red Blood Count 3.91 x10^6/uL (3.50-5.40) Hemoglobin 10.4 g/dL (12.0-15.5) Hematocrit 33.2 % (36.0-47.0) Mean Corpuscular Volume 85 fL (79-100) Mean Corpuscular Hemoglobin 27 pg (25-35) Mean Corpuscular Hemoglobin Concent 31 g/dL (31-37) Red Cell Distribution Width 14.3 % (11.5-14.5) Platelet Count 219 x10^3/uL (140-400) Neutrophils (%) (Auto) 78 % (31-73) Lymphocytes (%) (Auto) 11 % (24-48) Monocytes (%) (Auto) 11 % (0-9) Eosinophils (%) (Auto) 1 % (0-3) Basophils (%) (Auto) 0 % (0-3) Neutrophils # (Auto) 9.6 x10^3/uL (1.8-7.7) Lymphocytes # (Auto) 1.3 x10^3/uL (1.0-4.8) Monocytes # (Auto) 1.3 x10^3/uL (0.0-1.1) Eosinophils # (Auto) 0.1 x10^3/uL (0.0-0.7) Basophils # (Auto) 0.0 x10^3/uL (0.0-0.2) Sodium Level 139 mmol/L (136-145) Potassium Level 3.3 mmol/L (3.5-5.1) Chloride Level 101 mmol/L (98-107) Carbon Dioxide Level 32 mmol/L (21-32) Anion Gap 6 (6-14) Blood Urea Nitrogen 45 mg/dL (7-20) Creatinine 1.7 mg/dL (0.6-1.0) Estimated GFR (Cockcroft-Gault) 29.0 BUN/Creatinine Ratio 26 (6-20) Glucose Level 153 mg/dL (70-99) Calcium Level 8.5 mg/dL (8.5-10.1) Magnesium Level 2.1 mg/dL (1.8-2.4) Total Bilirubin 0.6 mg/dL (0.2-1.0) Aspartate Amino Transf (AST/SGOT) 12 U/L (15-37) Alanine Aminotransferase (ALT/SGPT) 18 U/L (14-59) Alkaline Phosphatase 76 U/L (46-116) Total Protein 7.2 g/dL (6.4-8.2) Albumin 2.7 g/dL (3.4-5.0) Albumin/Globulin Ratio 0.6 (1.0-1.7) Triglycerides Level 37 mg/dL (0-150) Cholesterol Level 85 mg/dL (0-200) LDL Cholesterol, Calculated 28 mg/dL (0-100) VLDL Cholesterol, Calculated 7 mg/dL (0-40) Non-HDL Cholesterol Calculated 35 mg/dL (0-129) HDL Cholesterol 50 mg/dL (40-60) Cholesterol/HDL Ratio 1.7 Heparin Anti-Xa Act, Unfractionated < 0.10 IU/mL (0.30-0.70) Glucose (Fingerstick) 181 mg/dL (70-99) Medications Current Medications Furosemide (Lasix) 80 mg 1X ONCE IVP Last administered on 01/05/21at 09:21; Start 01/05/21 at 09:00; Stop 01/05/21 at 09:01; Status DC Nitroglycerin (Nitrostat) 0.4 mg PRN Q5MIN PRN SL CHEST PAIN Last administered on 01/05/21at 10:19; Start 01/05/21 at 09:30 Ceftriaxone Sodium (Rocephin) 1 gm 1X ONCE IVP Last administered on 01/05/21at 12:41; Start 01/05/21 at 12:00; Stop 01/05/21 at 12:09; Status DC Aspirin (Raulito Aspirin) 325 mg DAILY PO Last administered on 01/06/21at 08:37; Start 01/05/21 at 12:00 Insulin Human Lispro (HumaLOG) 4 units TIDAC SQ Last administered on 01/05/21at 23:40; Start 01/05/21 at 16:30 Insulin Glargine (Lantus Syringe) 12 unit QHS SQ Last administered on 01/05/21at 23:39; Start 01/05/21 at 21:00 Insulin Human Lispro (HumaLOG) 0-8 UNITS TIDWMEALS SQ Last administered on 01/05/21at 23:41; Start 01/05/21 at 17:00 Ondansetron HCl (Zofran Odt) 4 mg PRN Q6HRS PRN PO NAUSEA/VOMITING; Start 01/05/21 at 11:45 Ondansetron HCl (Zofran Odt) 4 mg TIDAC PO Last administered on 01/06/21at 08:38; Start 01/05/21 at 12:00 Levothyroxine Sodium (Synthroid) 150 mcg DAILY06 PO Last administered on 01/06/21at 06:07; Start 01/06/21 at 06:00 Furosemide (Lasix) 40 mg BID92 PO Last administered on 01/06/21at 08:38; Start 01/05/21 at 14:00 Metolazone (Zaroxolyn) 2.5 mg MoWeFr@0900 PO Last administered on 01/06/21at 08:37; Start 01/06/21 at 09:00 Potassium Chloride (Klor-Con) 20 meq BID PO Last administered on 01/06/21at 08:38; Start 01/05/21 at 21:00 Metoprolol Succinate (Toprol Xl) 50 mg DAILY PO Last administered on 01/06/21at 08:38; Start 01/06/21 at 09:00 Amlodipine Besylate (Norvasc) 5 mg DAILY PO Last administered on 01/06/21at 08:37; Start 01/06/21 at 09:00 Senna/Docusate Sodium (Senna Plus) 2 tab QHS PO Last administered on 01/05/21at 23:36; Start 01/05/21 at 21:00 Allopurinol (Zyloprim) 100 mg DAILY PO Last administered on 01/06/21at 08:38; Start 01/06/21 at 09:00 Atorvastatin Calcium (Lipitor) 40 mg QHS PO Last administered on 01/05/21at 23:33; Start 01/05/21 at 21:00 Paroxetine HCl (Paxil) 20 mg DAILY PO Last administered on 01/06/21at 08:38; Start 01/06/21 at 09:00 Piperacillin Sod/ Tazobactam Sod 3.375 gm/Sodium Chloride 50 ml @ 100 mls/hr Q6HRS IV Last administered on 01/06/21at 06:08; Start 01/05/21 at 12:00 Heparin Sodium (Porcine) (Heparin Sodium) 5,000 unit Q12HR SQ ; Start 01/05/21 at 21:00; Stop 01/05/21 at 18:35; Status DC Famotidine (Pepcid) 20 mg QHS PO Last administered on 01/05/21at 23:35; Start 01/05/21 at 21:00 Acetaminophen (Tylenol) 650 mg PRN Q6HRS PRN PO MILD PAIN / TEMP > 100.3'F; Start 01/05/21 at 12:15 Heparin Sodium/ Dextrose 250 ml @ 13.32 mls/ hr CONT PRN IV PER PROTOCOL Last administered on 01/05/21at 23:47; Start 01/05/21 at 19:00 Heparin Sodium (Porcine) (Heparin Sodium) 2,800 unit PRN Q6HRS PRN IV FOR UFH LEVEL LESS THAN 0.2 Last administered on 01/06/21at 10:24; Start 01/05/21 at 19:00 Perflutren Protein Type A Microsphe (Optison) 0.66 mg STK-MED ONCE IV ; Start 01/06/21 at 07:20; Stop 01/06/21 at 07:20; Status DC Perflutren Protein Type A Microsphe (Optison) 0.66 mg 1X ONCE IV ; Start 01/06/21 at 08:15; Stop 01/06/21 at 08:16; Status DC Active Scripts Active Cephalexin 500 Mg Tablet 1 Tab PO TID 7 Days Thera-M Tablet (Multivits,Ca,Minerals/Iron/Fa) 1 Each Tablet 1 Tab PO DAILY Vitamin C (Ascorbic Acid) 500 Mg Tablet 500 Mg PO DAILY Lantus (Insulin Glargine,Hum.rec.anlog) 100 Unit/1 Ml Vial 12 Unit SQ QHS Metolazone 2.5 Mg Tablet 2.5 Mg PO QMWF Klor-Con M20 (Potassium Chloride) 20 Meq Tab.er.prt 20 Meq PO BID Toprol XL (Metoprolol Succinate) 50 Mg Tab.er.24h 50 Mg PO DAILY Furosemide 40 Mg Tablet 40 Mg PO BID Amlodipine Besylate 5 Mg Tablet 5 Mg PO DAILY Atorvastatin Calcium 40 Mg Tablet 40 Mg PO QHS Admelog (Insulin Lispro) 100 Unit/1 Ml Vial 6 Units SQ TIDAC hold if blood sugar less than 90 before a meal Nyamyc (Nystatin) 15 Gm Powder 1 Renee TP BID Stool Soft-Stimulant Lax Tab (Sennosides/Docusate Sodium) 1 Each Tablet 2 Tab PO DAILY Feosol (Ferrous Sulfate) 325 Mg Tablet 325 Mg PO QODAY Synthroid (Levothyroxine Sodium) 150 Mcg Tablet 150 Mcg PO DAILY06 Allopurinol 100 Mg Tablet 100 Mg PO DAILY Paroxetine Hcl 20 Mg Tablet 20 Mg PO DAILY Reported Aspirin 81 Mg Tab.chew 81 Mg PO HS Tylenol (Acetaminophen) 325 Mg Tablet 650 Mg PO PRN Q4HRS Vitals/I & O Vital Sign - Last 24 Hours 01/05/21 01/05/21 01/05/21 01/05/21 12:53 14:23 14:53 18:00 Temp 98.0 98.0 Pulse 60 60 64 65 Resp 24 25 20 18 B/P (MAP) 129/68 (88) 118/64 (82) 136/67 (90) 130/63 (85) Pulse Ox 97 96 97 98 O2 Delivery Nasal Cannula Nasal Cannula Nasal Cannula Nasal Cannula O2 Flow Rate 2.0 2.0 2.0 2.0 01/05/21 01/05/21 01/06/21 01/06/21 20:00 22:40 02:37 06:28 Temp 98.1 98.6 97.8 98.1 98.6 97.8 Pulse 72 71 70 Resp 18 16 16 B/P (MAP) 147/78 (101) 118/58 (78) 129/58 (81) Pulse Ox 98 100 94 O2 Delivery Nasal Cannula Nasal Cannula Nasal Cannula Nasal Cannula O2 Flow Rate 2.0 2.0 2.0 2.0 01/06/21 01/06/21 01/06/21 08:00 08:37 08:38 Pulse 70 70 B/P (MAP) 129/58 129/58 O2 Delivery Nasal Cannula O2 Flow Rate 2.0 Intake and Output 01/05/21 01/05/21 01/06/21 15:00 23:00 07:00 Intake Total 60 ml 100 ml Output Total 100 ml Balance -40 ml 100 ml Justifications for Admission Other Justification TERE ALLISON MD Jan 06, 2021 10:48
[2021-01-06 11:00] VITALS: BP 132/88
--- NOTE | 2021-01-06 11:15 | PDOC ---
FARHANA HOFFMAN SAP SENIOR DEVELOPER 01/06/21 1115: CARDIO Progress Notes Date and Time Date of Service 01/06/21 Time of Evaluation 1100 Subjective Subjective: No Chest Pain, No shortness of breath, No Palpitations Vitals Vitals Vital Signs Date Time Temp Pulse Resp B/P (MAP) Pulse Ox O2 Delivery O2 Flow Rate FiO2 01/06/21 08:38 70 129/58 01/06/21 08:00 Nasal Cannula 2.0 01/06/21 06:28 97.8 16 94 97.8 Weight Weight [ ] Input and Output Intake and Output Intake and Output 01/06/21 07:00 Intake Total 160 ml Output Total 100 ml Balance 60 ml Intake Oral 60 ml IV Total 100 ml Output Urine Total 100 ml Laboratory Labs Laboratory Tests Test 01/05/21 12:17 01/05/21 12:20 01/05/21 14:55 01/05/21 19:31 Glucose (Fingerstick) 178 mg/dL (70-99) 311 mg/dL (70-99) Troponin I High Sensitivity 878 ng/L (4-50) 719 ng/L (4-50) Test 01/06/21 03:30 01/06/21 05:30 01/06/21 07:08 White Blood Count 12.3 x10^3/uL (4.0-11.0) Red Blood Count 3.91 x10^6/uL (3.50-5.40) Hemoglobin 10.4 g/dL (12.0-15.5) Hematocrit 33.2 % (36.0-47.0) Mean Corpuscular Volume 85 fL (79-100) Mean Corpuscular Hemoglobin 27 pg (25-35) Mean Corpuscular Hemoglobin Concent 31 g/dL (31-37) Red Cell Distribution Width 14.3 % (11.5-14.5) Platelet Count 219 x10^3/uL (140-400) Neutrophils (%) (Auto) 78 % (31-73) Lymphocytes (%) (Auto) 11 % (24-48) Monocytes (%) (Auto) 11 % (0-9) Eosinophils (%) (Auto) 1 % (0-3) Basophils (%) (Auto) 0 % (0-3) Neutrophils # (Auto) 9.6 x10^3/uL (1.8-7.7) Lymphocytes # (Auto) 1.3 x10^3/uL (1.0-4.8) Monocytes # (Auto) 1.3 x10^3/uL (0.0-1.1) Eosinophils # (Auto) 0.1 x10^3/uL (0.0-0.7) Basophils # (Auto) 0.0 x10^3/uL (0.0-0.2) Sodium Level 139 mmol/L (136-145) Potassium Level 3.3 mmol/L (3.5-5.1) Chloride Level 101 mmol/L (98-107) Carbon Dioxide Level 32 mmol/L (21-32) Anion Gap 6 (6-14) Blood Urea Nitrogen 45 mg/dL (7-20) Creatinine 1.7 mg/dL (0.6-1.0) Estimated GFR (Cockcroft-Gault) 29.0 BUN/Creatinine Ratio 26 (6-20) Glucose Level 153 mg/dL (70-99) Calcium Level 8.5 mg/dL (8.5-10.1) Magnesium Level 2.1 mg/dL (1.8-2.4) Total Bilirubin 0.6 mg/dL (0.2-1.0) Aspartate Amino Transf (AST/SGOT) 12 U/L (15-37) Alanine Aminotransferase (ALT/SGPT) 18 U/L (14-59) Alkaline Phosphatase 76 U/L (46-116) Total Protein 7.2 g/dL (6.4-8.2) Albumin 2.7 g/dL (3.4-5.0) Albumin/Globulin Ratio 0.6 (1.0-1.7) Triglycerides Level 37 mg/dL (0-150) Cholesterol Level 85 mg/dL (0-200) LDL Cholesterol, Calculated 28 mg/dL (0-100) VLDL Cholesterol, Calculated 7 mg/dL (0-40) Non-HDL Cholesterol Calculated 35 mg/dL (0-129) HDL Cholesterol 50 mg/dL (40-60) Cholesterol/HDL Ratio 1.7 Heparin Anti-Xa Act, Unfractionated < 0.10 IU/mL (0.30-0.70) Glucose (Fingerstick) 181 mg/dL (70-99) Physical Exam HEENT: Neck Supple W Full Motion Chest: Symmetric LUNGS: Clear to Auscultation Heart: RRR Abdomen: Soft N/T, Other (obese ) Extremities: Other (left BKA, RLE cellulitis ) Neurology: alert, oriented, follow commands Plan Plan 1. Chest pain, mixed features 2. Mild troponin elevation; peak 848 with high-sensitivity trop 3. Acute on chronic systolic CHF; echo 10/26 with preserved LV systolic function. Echo this morning with LVEF 25% with pattern suggestive Takotsubo's cardiomyopathy. 4. CAD; recent cath in May 2020 showed 60% stenosis involving LAD with negative IFR and 100% CLARITY DEVELOPER involving moderate caliber obtuse marginal branch of left circumflex artery with left to left collaterals. 5. NILDA on CKD 6. Leukocytosis 7. Hypertension: controlled 8. Hyperlipidemia: statin 9. Hypothyroidism: on levothyroxine 10. Diabetes, II 11. PAD s/p left BKA 12. RLE cellulitis; antibiotics as per IM 13. PAFIB; maintaining SR Recommendations Continue heparin gtt Secondary prevention; ASA, statin, BB Mild diuresis with monitoring of renal function HF optimization No ACEi/ARB with NILDA Supportive care Justicifation of Admission Dx: Justifications for Admission: Justification of Admission Dx: N/A JAY SMYTH MD 01/06/21 1654: CARDIO Progress Notes Assessment Assessment Patient seen and examined. Agree with GLOBAL TECHNICAL WRITER's assessment and plan. Acute on chronic systolic heart failure better compensated with diuresis. 2D echo showed LVEF 25%, pattern consistent with Takotsubo's cardiomyopathy. Slight troponin elevation probably demand ischemia. Doubt ACS. Recent cardiac catheterization showed 60% stenosis involving LAD that was physiologically insignificant based on IFR measurement. Continue current medical management. FARHANA HOFFMAN APRN Jan 06, 2021 11:15 JAY SMYTH MD Jan 06, 2021 16:54
[2021-01-06] MEDS: PIPERACILLIN/TAZOBACTAM 2.25 GM in IV NORMAL SALINE 50ML 50 ML IV SCH ×3 (11:20→23:24)
[2021-01-06] MEDS ORDERED: POTASSIUM CHLORIDE 20 MEQ TABLET.ER. PO ONE (11:30)
--- NOTE | 2021-01-06 13:43 | CONS ---
DATE OF CONSULTATION: 01/06/2021 REFERRING PHYSICIAN: Ramirez Lara MD REASON FOR CONSULTATION: Leukocytosis, antibiotic evaluation and treatment. HISTORY OF PRESENT ILLNESS: A 80-year-old female with history of diabetes, CHF, hypertension, hypothyroidism, status post left BKA, bilateral toe amputation, LULI, living at home with her , presented to the ER with complaints of chest discomfort, left shoulder pain, shortness of breath, which started suddenly yesterday afternoon. The patient has received COVID vaccine in August. She denies any fevers, chills. Did have some cough with yellowish white sputum production. White count was elevated at 20.1, hemoglobin of 11.9. Creatinine was 1.7. Lipase of 64. UA showed 5-10 wbc. UDS was negative. COVID was negative. Influenza screen negative. Chest x-ray revealed bilateral infiltrates, atelectasis, small bilateral pleural effusion, no pneumothorax. CT chest, abdomen and pelvis revealed small bilateral pleural effusion with adjacent compressive atelectasis versus infiltrate, mild pulmonary venous congestion, coronary artery calcification, nonobstructive calculi identified in the mid to superior left kidney, no hydronephrosis or obstructive uropathy, one paramone right paratracheal lymph node, may be reactive. The patient is on Zosyn. ID consultation has been requested for antibiotic management. 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 PAST SURGICAL HISTORY: Reviewed. SOCIAL HISTORY: , lives with her at home. Does not drink alcohol or smoke cigarettes. FAMILY HISTORY: Noncontributory. ALLERGIES: ADHESIVE, LISINOPRIL, MORPHINE AND SERTRALINE. Current Medications: Zosyn. Other medications reviewed in medication list. REVIEW OF SYSTEMS: Negative except for above in the HPI. The patient feels much better, currently remains on 2 liters O2 by nasal cannula. Denies any fevers, chills, nausea, vomiting, diarrhea, abdominal pain, symptoms. Denies being on any antibiotics prior to admission. PHYSICAL EXAMINATION: VITAL SIGNS: Temperature 98.4, pulse 72, respiratory rate 19, blood pressure 132/88, oxygen saturation 96% on 2 liters O2 by nasal cannula. GENERAL: Alert, oriented x 3, pleasant female, lying in bed comfortably, in no acute distress. at bedside. RN at bedside. HEENT: Normocephalic, atraumatic. No thrush. Oral mucosa moist. NECK: Supple. LUNGS: Decreased breath sounds at the bases, some crackles. No accessory muscle use. CARDIOVASCULAR: S1, S2. No murmurs. ABDOMEN: Soft, nontender, nondistended, obese. Bowel sounds present. EXTREMITIES: Left BKA prosthesis in place, taken down. Stump looks healthy, just dry skin. Right lower extremity, trace edema, mild erythema which is at baseline, no warmth, no weeping lesions, much improved than last admission. DERMATOLOGIC: Warm, dry. No generalized rash except for above. NEUROLOGIC: Alert and oriented x 3, grossly nonfocal. GENITOURINARY: Cifuentes in place, new placed today. Peripheral IV looks okay. LABORATORY DATA: WBC down to 12.3 from 20.1, hemoglobin 10.4, hematocrit 32.2, platelets 219. Sodium 138, potassium 3.8, chloride 100, bicarb 31, BUN 46, creatinine 1.7, glucose 176. LFTs normal. Lipase 64. UA shows trace leukocyte esterase, wbc 5-10. UDS negative. Influenza screen negative. COVID negative. MICRO: None pending. DIAGNOSTICS: CT chest, abdomen and pelvis as above. Chest x-ray as above. IMPRESSION: 1. Leukocytosis, appears reactive. 2. Pyuria. Urine cultures pending. 3. History of extended spectrum beta-lactamase Escherichia coli urinary tract infection in the past. 4. 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 5. Congestive heart failure. 6. Chest pain. 7. Chronic kidney disease. 8. Diabetes mellitus 2. 9. History of left [id number] amputation. RECOMMENDATIONS: 1. Continue Zosyn. We will deescalate soon. 2. Monitor labs and cultures. 3. Maintain aspiration precaution. 4. Continue supportive care. Discussed with at bedside. Discussed with RN. Thank you, Dr. Lara for consulting Infectious Disease to participate in this patient's care. If you have any questions, do not hesitate to contact me. BERNY DR: Slava TID: [id number]
[2021-01-06] MEDS: FUROSEMIDE 40 MG/4 ML VIAL. IVP SCH (13:47)
[2021-01-06 14:49] VITALS: BP 110/58
--- NOTE | 2021-01-06 15:32 | NUR ---
SS following for discharge planning. SS reviewed pt chart and discussed with pt RN. Pt is from home with spouse and is currently requiring oxygen at two liters nasal canula. Pt has home oxygen. COVID19 negative. Pt on IV Lasix and IV Zosyn. Heparin drip. Cardiology and ID following. SS will continue to follow for discharge planning.
[2021-01-06] MEDS: HEPARIN 25,000UTS/250ML PREMIX 250 ML IV PRN (17:00)
[2021-01-06 19:25] VITALS: BP 123/65
[2021-01-06 22:57] VITALS: BP 130/84
[2021-01-06] MEDS: ATORVASTATIN CALCIUM 40 MG TABLET. PO SCH (23:20)
[2021-01-06] MEDS: SENNOSIDES/DOCUSATE 8.6/50MG TABLET. PO SCH (23:20)
[2021-01-06] MEDS: FAMOTIDINE 20 MG TABLET. PO SCH (23:21)
[2021-01-06] MEDS: LACTOBACILLUS RHAMNOSUS GG 1 CAPSULE. PO SCH (23:22)
[2021-01-06] MEDS: INSULIN GLARGINE SYRINGE. SQ SCH (23:25)
[2021-01-07 03:20] VITALS: BP 105/52
[2021-01-07 04:50] LABS: BASO # 0.1 x10^3/uL (0.0-0.2); BASO % 1 % (0-3); EOS # 0.2 x10^3/uL (0.0-0.7); EOS % 2 % (0-3); HEMATOCRIT 31.3 % (36.0-47.0); HEMOGLOBIN 10.2 g/dL (12.0-15.5); LYMPH # 1.3 x10^3/uL (1.0-4.8); LYMPH % 13 % (24-48); MEAN CORPUSCULAR HEMOGLOBIN 28 pg (25-35); MEAN CORPUSCULAR HGB CONC 33 g/dL (31-37); MEAN CORPUSCULAR VOLUME 85 fL (79-100); MONO # 0.9 x10^3/uL (0.0-1.1); MONO % 9 % (0-9); NEUT # 7.5 x10^3/uL (1.8-7.7); NEUT % 75 % (31-73); PLATELET COUNT 200 x10^3/uL (140-400); RED BLOOD COUNT 3.68 x10^6/uL (3.50-5.40); RED CELL DISTRIBUTION WIDTH 14.3 % (11.5-14.5)
[2021-01-07 05:05] LABS: CALCIUM 8.1 mg/dL (8.5-10.1); CREATININE 2.2 mg/dL (0.6-1.0); GFR 21.5; POTASSIUM 3.3 mmol/L (3.5-5.1)
[2021-01-07] MEDS: PIPERACILLIN/TAZOBACTAM 2.25 GM in IV NORMAL SALINE 50ML 50 ML IV SCH ×4 (05:41→23:32)
[2021-01-07] MEDS: LEVOTHYROXINE 150 MCG TABLET PO SCH (05:41)
[2021-01-07 07:00] VITALS: BP 115/55
[2021-01-07] MEDS: INSULIN LISPRO 300 UNITS/3 ML VIAL. SQ SCH ×6 (07:30→17:15)
[2021-01-07] MEDS: ALLOPURINOL 100 MG TABLET. PO SCH (08:44)
[2021-01-07] MEDS: LACTOBACILLUS RHAMNOSUS GG 1 CAPSULE. PO SCH ×2 (08:44→20:12)
[2021-01-07] MEDS: PARoxetine 20 MG TABLET PO SCH (08:44)
[2021-01-07] MEDS: ASPIRIN 325 MG TABLET PO SCH (08:44)
[2021-01-07] MEDS: POTASSIUM CHLORIDE 20 MEQ TABLET.ER. PO SCH ×2 (08:44→20:11)
[2021-01-07] MEDS: METOPROLOL SUCC 24HR ER 50 MG TAB.ER.24H. PO SCH (08:45)
[2021-01-07] MEDS: ACETAMINOPHEN 325 MG TABLET. PO PRN (08:45)
[2021-01-07] MEDS: ONDANSETRON ODT 4 MG TAB.RAPDIS. PO SCH ×3 (08:45→17:11)
[2021-01-07] MEDS: FUROSEMIDE 40 MG/4 ML VIAL. IVP SCH (08:46)
--- NOTE | 2021-01-07 08:48 | PDOC ---
Infectious Disease Note Subjective: Subjective Patient feels better Down to 2 L O2 by nasal cannula Denies any fever, nausea, vomiting, diarrhea, abdominal pain Vital Signs: Vital Signs Vital Signs Date Time Temp Pulse Resp B/P (MAP) Pulse Ox O2 Delivery O2 Flow Rate FiO2 01/07/21 08:45 65 115/55 01/07/21 07:00 98.0 20 96 Nasal Cannula 2.0 98.0 Physical Exam: PHYSICAL EXAM GENERAL: Alert, oriented x 3, pleasant female, lying in bed comfortably, in no acute distress. at bedside. RN at bedside. HEENT: Normocephalic, atraumatic. No thrush. Oral mucosa moist. NECK: Supple. LUNGS: Decreased breath sounds at the bases, some crackles. No accessory muscle use. CARDIOVASCULAR: S1, S2. No murmurs. ABDOMEN: Soft, nontender, nondistended, obese. Bowel sounds present. EXTREMITIES: Left BKA prosthesis in place, taken down. Stump looks healthy, just dry skin. Right lower extremity, trace edema, mild erythema which is at baseline, no warmth, no weeping lesions, much improved than last admission. DERMATOLOGIC: Warm, dry. No generalized rash except for above. NEUROLOGIC: Alert and oriented x 3, grossly nonfocal. GENITOURINARY: Cifuentes in place, new placed today. Peripheral IV looks okay. Medications: Inpatient Meds: Medications reviewed. Labs: Lab Laboratory Tests Test 01/06/21 11:18 01/06/21 13:05 01/06/21 16:50 01/06/21 19:35 Glucose (Fingerstick) 129 mg/dL (70-99) 157 mg/dL (70-99) Heparin Anti-Xa Act, Unfractionated 0.41 IU/mL (0.30-0.70) < 0.10 IU/mL (0.30-0.70) Test 01/06/21 20:47 01/07/21 04:10 01/07/21 07:37 Glucose (Fingerstick) 196 mg/dL (70-99) 120 mg/dL (70-99) White Blood Count 10.0 x10^3/uL (4.0-11.0) Red Blood Count 3.68 x10^6/uL (3.50-5.40) Hemoglobin 10.2 g/dL (12.0-15.5) Hematocrit 31.3 % (36.0-47.0) Mean Corpuscular Volume 85 fL (79-100) Mean Corpuscular Hemoglobin 28 pg (25-35) Mean Corpuscular Hemoglobin Concent 33 g/dL (31-37) Red Cell Distribution Width 14.3 % (11.5-14.5) Platelet Count 200 x10^3/uL (140-400) Neutrophils (%) (Auto) 75 % (31-73) Lymphocytes (%) (Auto) 13 % (24-48) Monocytes (%) (Auto) 9 % (0-9) Eosinophils (%) (Auto) 2 % (0-3) Basophils (%) (Auto) 1 % (0-3) Neutrophils # (Auto) 7.5 x10^3/uL (1.8-7.7) Lymphocytes # (Auto) 1.3 x10^3/uL (1.0-4.8) Monocytes # (Auto) 0.9 x10^3/uL (0.0-1.1) Eosinophils # (Auto) 0.2 x10^3/uL (0.0-0.7) Basophils # (Auto) 0.1 x10^3/uL (0.0-0.2) Heparin Anti-Xa Act, Unfractionated 0.62 IU/mL (0.30-0.70) Sodium Level 139 mmol/L (136-145) Potassium Level 3.3 mmol/L (3.5-5.1) Chloride Level 100 mmol/L (98-107) Carbon Dioxide Level 32 mmol/L (21-32) Anion Gap 7 (6-14) Blood Urea Nitrogen 52 mg/dL (7-20) Creatinine 2.2 mg/dL (0.6-1.0) Estimated GFR (Cockcroft-Gault) 21.5 Glucose Level 139 mg/dL (70-99) Calcium Level 8.1 mg/dL (8.5-10.1) Objective: Assessment: 1. Leukocytosis, appears reactive. Improving 2. Pyuria. Urine cultures negative so far 3. History of extended spectrum beta-lactamase Escherichia coli urinary tract infection in the past. 4. 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 5. Congestive heart failure. 6. Chest pain. 7. Chronic kidney disease. 8. Diabetes mellitus 2. 9. History of left [id number] amputation. Plan: Plan of Care 1. Continue Zosyn. We will deescalate soon. 2. Monitor labs and cultures. 3. Maintain aspiration precaution. 4. Continue supportive care. LADARIUS VENTURA MD Jan 07, 2021 08:48
[2021-01-07 10:38] VITALS: BP 108/55
[2021-01-07] MEDS ORDERED: POTASSIUM CHLORIDE 20 MEQ TABLET.ER. PO ONE (10:45)
--- NOTE | 2021-01-07 10:47 | PDOC ---
PROGRESS NOTES Date of Service DATE: 01/07/21 TIME: 10:42 Subjective Subjective transient chest pain earlier resolved. not short of breath . wbc 10K. bun 52 and cr 2.2 potassium 3.3. urine culture e. coli. blood cultures negative. Objective Objective Vital Signs Date Time Temp Pulse Resp B/P (MAP) Pulse Ox O2 Delivery O2 Flow Rate FiO2 01/07/21 08:45 65 115/55 01/07/21 08:00 Nasal Cannula 2.0 01/07/21 07:00 98.0 20 96 98.0 Intake and Output 01/07/21 07:00 Intake Total 400 ml Output Total 1750 ml Balance -1350 ml Intake Oral 300 ml IV Total 100 ml Output Urine Total 1750 ml Physical Exam Abdomen: Soft, Other (obese) Heart: Regular rate, Normal S1, Normal S2 Extremities: Other (trace edema RLE and left BKA) General: Alert HEENT: Atraumatic Neuro: Normal speech Psych/Mental Status: Mental status NL, Mood NL Skin: Other (less erythema RIGHT LEG) Assessment Assessment Problems1. Chest pain, resolved with sublingual nitroglycerin. 2. Non-ST segment elevated myocardial infarction. 3. 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 Leukocytosis resolved 5. Coronary artery disease, nonobstructive. 60% LAD 05/26 per cardiac cath 6. Diabetes mellitus type 2, on insulin with nephropathy and neuropathy. 7. Chronic kidney disease stage.3.NILDA due to diuretics 8. Hypertension. 9. Hyperlipidemia. 10. Hypothyroidism. 11. Obstructive sleep apnea. Treated with CPAP. 12. Morbid obesity. 13. Chronic venous insufficiency of the legs with left below-knee amputation, severe protein calorie malnutrition hypokalemia wearing a prosthesis. 14. Mild peripheral arterial disease. e.coli uti sensitivities pending Medical Problems: (1) CHF exacerbation Status: Acute (2) CKD (chronic kidney disease) Status: Acute (3) NSTEMI (non-ST elevated myocardial infarction) Status: Acute (4) Person under investigation for COVID-19 Status: Acute (5) Respiratory failure, unspecified with hypoxia Status: Acute (6) UTI (urinary tract infection) Status: Acute Plan Plan of Care d/c iv lasix but dosed today switch to furosemide 40 mg oral daily continue iv heparin per cardiology continue aspirin and metoprolol potassium chloride PT and OT continue iv zosyn await final urine culture Comment Review of Relevant I have reviewed the following items helio (where applicable) has been applied. Labs Laboratory Tests Test 01/05/21 12:17 01/05/21 12:20 01/05/21 14:55 01/05/21 19:31 Glucose (Fingerstick) 178 mg/dL (70-99) 311 mg/dL (70-99) Troponin I High Sensitivity 878 ng/L (4-50) 719 ng/L (4-50) Test 01/06/21 03:30 01/06/21 05:30 01/06/21 07:08 01/06/21 11:18 White Blood Count 12.3 x10^3/uL (4.0-11.0) Red Blood Count 3.91 x10^6/uL (3.50-5.40) Hemoglobin 10.4 g/dL (12.0-15.5) Hematocrit 33.2 % (36.0-47.0) Mean Corpuscular Volume 85 fL (79-100) Mean Corpuscular Hemoglobin 27 pg (25-35) Mean Corpuscular Hemoglobin Concent 31 g/dL (31-37) Red Cell Distribution Width 14.3 % (11.5-14.5) Platelet Count 219 x10^3/uL (140-400) Neutrophils (%) (Auto) 78 % (31-73) Lymphocytes (%) (Auto) 11 % (24-48) Monocytes (%) (Auto) 11 % (0-9) Eosinophils (%) (Auto) 1 % (0-3) Basophils (%) (Auto) 0 % (0-3) Neutrophils # (Auto) 9.6 x10^3/uL (1.8-7.7) Lymphocytes # (Auto) 1.3 x10^3/uL (1.0-4.8) Monocytes # (Auto) 1.3 x10^3/uL (0.0-1.1) Eosinophils # (Auto) 0.1 x10^3/uL (0.0-0.7) Basophils # (Auto) 0.0 x10^3/uL (0.0-0.2) Sodium Level 139 mmol/L (136-145) Potassium Level 3.3 mmol/L (3.5-5.1) Chloride Level 101 mmol/L (98-107) Carbon Dioxide Level 32 mmol/L (21-32) Anion Gap 6 (6-14) Blood Urea Nitrogen 45 mg/dL (7-20) Creatinine 1.7 mg/dL (0.6-1.0) Estimated GFR (Cockcroft-Gault) 29.0 BUN/Creatinine Ratio 26 (6-20) Glucose Level 153 mg/dL (70-99) Calcium Level 8.5 mg/dL (8.5-10.1) Magnesium Level 2.1 mg/dL (1.8-2.4) Total Bilirubin 0.6 mg/dL (0.2-1.0) Aspartate Amino Transf (AST/SGOT) 12 U/L (15-37) Alanine Aminotransferase (ALT/SGPT) 18 U/L (14-59) Alkaline Phosphatase 76 U/L (46-116) Total Protein 7.2 g/dL (6.4-8.2) Albumin 2.7 g/dL (3.4-5.0) Albumin/Globulin Ratio 0.6 (1.0-1.7) Triglycerides Level 37 mg/dL (0-150) Cholesterol Level 85 mg/dL (0-200) LDL Cholesterol, Calculated 28 mg/dL (0-100) VLDL Cholesterol, Calculated 7 mg/dL (0-40) Non-HDL Cholesterol Calculated 35 mg/dL (0-129) HDL Cholesterol 50 mg/dL (40-60) Cholesterol/HDL Ratio 1.7 Heparin Anti-Xa Act, Unfractionated < 0.10 IU/mL (0.30-0.70) Glucose (Fingerstick) 181 mg/dL (70-99) 129 mg/dL (70-99) Test 01/06/21 13:05 01/06/21 16:50 01/06/21 19:35 01/06/21 20:47 Heparin Anti-Xa Act, Unfractionated 0.41 IU/mL (0.30-0.70) < 0.10 IU/mL (0.30-0.70) Glucose (Fingerstick) 157 mg/dL (70-99) 196 mg/dL (70-99) Test 01/07/21 04:10 01/07/21 07:37 White Blood Count 10.0 x10^3/uL (4.0-11.0) Red Blood Count 3.68 x10^6/uL (3.50-5.40) Hemoglobin 10.2 g/dL (12.0-15.5) Hematocrit 31.3 % (36.0-47.0) Mean Corpuscular Volume 85 fL (79-100) Mean Corpuscular Hemoglobin 28 pg (25-35) Mean Corpuscular Hemoglobin Concent 33 g/dL (31-37) Red Cell Distribution Width 14.3 % (11.5-14.5) Platelet Count 200 x10^3/uL (140-400) Neutrophils (%) (Auto) 75 % (31-73) Lymphocytes (%) (Auto) 13 % (24-48) Monocytes (%) (Auto) 9 % (0-9) Eosinophils (%) (Auto) 2 % (0-3) Basophils (%) (Auto) 1 % (0-3) Neutrophils # (Auto) 7.5 x10^3/uL (1.8-7.7) Lymphocytes # (Auto) 1.3 x10^3/uL (1.0-4.8) Monocytes # (Auto) 0.9 x10^3/uL (0.0-1.1) Eosinophils # (Auto) 0.2 x10^3/uL (0.0-0.7) Basophils # (Auto) 0.1 x10^3/uL (0.0-0.2) Heparin Anti-Xa Act, Unfractionated 0.62 IU/mL (0.30-0.70) Sodium Level 139 mmol/L (136-145) Potassium Level 3.3 mmol/L (3.5-5.1) Chloride Level 100 mmol/L (98-107) Carbon Dioxide Level 32 mmol/L (21-32) Anion Gap 7 (6-14) Blood Urea Nitrogen 52 mg/dL (7-20) Creatinine 2.2 mg/dL (0.6-1.0) Estimated GFR (Cockcroft-Gault) 21.5 Glucose Level 139 mg/dL (70-99) Calcium Level 8.1 mg/dL (8.5-10.1) Glucose (Fingerstick) 120 mg/dL (70-99) Laboratory Tests Test 01/06/21 11:18 01/06/21 13:05 01/06/21 16:50 01/06/21 19:35 Glucose (Fingerstick) 129 mg/dL (70-99) 157 mg/dL (70-99) Heparin Anti-Xa Act, Unfractionated 0.41 IU/mL (0.30-0.70) < 0.10 IU/mL (0.30-0.70) Test 01/06/21 20:47 01/07/21 04:10 01/07/21 07:37 Glucose (Fingerstick) 196 mg/dL (70-99) 120 mg/dL (70-99) White Blood Count 10.0 x10^3/uL (4.0-11.0) Red Blood Count 3.68 x10^6/uL (3.50-5.40) Hemoglobin 10.2 g/dL (12.0-15.5) Hematocrit 31.3 % (36.0-47.0) Mean Corpuscular Volume 85 fL (79-100) Mean Corpuscular Hemoglobin 28 pg (25-35) Mean Corpuscular Hemoglobin Concent 33 g/dL (31-37) Red Cell Distribution Width 14.3 % (11.5-14.5) Platelet Count 200 x10^3/uL (140-400) Neutrophils (%) (Auto) 75 % (31-73) Lymphocytes (%) (Auto) 13 % (24-48) Monocytes (%) (Auto) 9 % (0-9) Eosinophils (%) (Auto) 2 % (0-3) Basophils (%) (Auto) 1 % (0-3) Neutrophils # (Auto) 7.5 x10^3/uL (1.8-7.7) Lymphocytes # (Auto) 1.3 x10^3/uL (1.0-4.8) Monocytes # (Auto) 0.9 x10^3/uL (0.0-1.1) Eosinophils # (Auto) 0.2 x10^3/uL (0.0-0.7) Basophils # (Auto) 0.1 x10^3/uL (0.0-0.2) Heparin Anti-Xa Act, Unfractionated 0.62 IU/mL (0.30-0.70) Sodium Level 139 mmol/L (136-145) Potassium Level 3.3 mmol/L (3.5-5.1) Chloride Level 100 mmol/L (98-107) Carbon Dioxide Level 32 mmol/L (21-32) Anion Gap 7 (6-14) Blood Urea Nitrogen 52 mg/dL (7-20) Creatinine 2.2 mg/dL (0.6-1.0) Estimated GFR (Cockcroft-Gault) 21.5 Glucose Level 139 mg/dL (70-99) Calcium Level 8.1 mg/dL (8.5-10.1) Microbiology 01/05/21 Blood Culture - Preliminary, Resulted NO GROWTH AFTER 1 DAY 01/05/21 Urine Culture - Preliminary, Resulted Medications Current Medications Furosemide (Lasix) 80 mg 1X ONCE IVP Last administered on 01/05/21at 09:21; Start 01/05/21 at 09:00; Stop 01/05/21 at 09:01; Status DC Nitroglycerin (Nitrostat) 0.4 mg PRN Q5MIN PRN SL CHEST PAIN Last administered on 01/05/21at 10:19; Start 01/05/21 at 09:30 Ceftriaxone Sodium (Rocephin) 1 gm 1X ONCE IVP Last administered on 01/05/21at 12:41; Start 01/05/21 at 12:00; Stop 01/05/21 at 12:09; Status DC Aspirin (Raulito Aspirin) 325 mg DAILY PO Last administered on 01/07/21at 08:44; Start 01/05/21 at 12:00 Insulin Human Lispro (HumaLOG) 4 units TIDAC SQ Last administered on 01/06/21at 17:01; Start 01/05/21 at 16:30 Insulin Glargine (Lantus Syringe) 12 unit QHS SQ Last administered on 01/06/21at 23:25; Start 01/05/21 at 21:00 Insulin Human Lispro (HumaLOG) 0-8 UNITS TIDWMEALS SQ Last administered on 01/05/21at 23:41; Start 01/05/21 at 17:00 Ondansetron HCl (Zofran Odt) 4 mg PRN Q6HRS PRN PO NAUSEA/VOMITING Last administered on 01/06/21at 23:20; Start 01/05/21 at 11:45 Ondansetron HCl (Zofran Odt) 4 mg TIDAC PO Last administered on 01/07/21at 08:45; Start 01/05/21 at 12:00 Levothyroxine Sodium (Synthroid) 150 mcg DAILY06 PO Last administered on 01/07/21at 05:41; Start 01/06/21 at 06:00 Furosemide (Lasix) 40 mg BID92 PO Last administered on 01/06/21at 08:38; Start 01/05/21 at 14:00; Stop 01/06/21 at 10:42; Status DC Metolazone (Zaroxolyn) 2.5 mg MoWeFr@0900 PO Last administered on 01/06/21at 08:37; Start 01/06/21 at 09:00 Potassium Chloride (Klor-Con) 20 meq BID PO Last administered on 01/06/21at 08:38; Start 01/05/21 at 21:00; Stop 01/06/21 at 10:42; Status DC Metoprolol Succinate (Toprol Xl) 50 mg DAILY PO Last administered on 01/07/21at 08:45; Start 01/06/21 at 09:00 Amlodipine Besylate (Norvasc) 5 mg DAILY PO Last administered on 01/07/21at 08:44; Start 01/06/21 at 09:00 Senna/Docusate Sodium (Senna Plus) 2 tab QHS PO Last administered on 01/06/21at 23:20; Start 01/05/21 at 21:00 Allopurinol (Zyloprim) 100 mg DAILY PO Last administered on 01/07/21at 08:44; Start 01/06/21 at 09:00 Atorvastatin Calcium (Lipitor) 40 mg QHS PO Last administered on 01/06/21at 23:20; Start 01/05/21 at 21:00 Paroxetine HCl (Paxil) 20 mg DAILY PO Last administered on 01/07/21at 08:44; Start 01/06/21 at 09:00 Piperacillin Sod/ Tazobactam Sod 3.375 gm/Sodium Chloride 50 ml @ 100 mls/hr Q6HRS IV Last administered on 01/06/21at 06:08; Start 01/05/21 at 12:00; Stop 01/06/21 at 10:42; Status DC Heparin Sodium (Porcine) (Heparin Sodium) 5,000 unit Q12HR SQ ; Start 01/05/21 at 21:00; Stop 01/05/21 at 18:35; Status DC Famotidine (Pepcid) 20 mg QHS PO Last administered on 01/06/21at 23:21; Start 01/05/21 at 21:00 Acetaminophen (Tylenol) 650 mg PRN Q6HRS PRN PO MILD PAIN / TEMP > 100.3'F Last administered on 01/07/21at 08:45; Start 01/05/21 at 12:15 Heparin Sodium/ Dextrose 250 ml @ 13.32 mls/ hr CONT PRN IV PER PROTOCOL Last administered on 01/06/21at 17:00; Start 01/05/21 at 19:00 Heparin Sodium (Porcine) (Heparin Sodium) 2,800 unit PRN Q6HRS PRN IV FOR UFH LEVEL LESS THAN 0.2 Last administered on 01/06/21at 21:30; Start 01/05/21 at 19:00 Perflutren Protein Type A Microsphe (Optison) 0.66 mg STK-MED ONCE IV ; Start 01/06/21 at 07:20; Stop 01/06/21 at 07:20; Status DC Perflutren Protein Type A Microsphe (Optison) 0.66 mg 1X ONCE IV ; Start 01/06/21 at 08:15; Stop 01/06/21 at 08:16; Status DC Piperacillin Sod/ Tazobactam Sod 2.25 gm/Sodium Chloride 50 ml @ 100 mls/hr Q6HRS IV Last administered on 01/07/21at 05:41; Start 01/06/21 at 12:00 Potassium Chloride (Klor-Con) 20 meq TID PO Last administered on 01/07/21at 08:44; Start 01/06/21 at 14:00 Furosemide (Lasix) 40 mg BID92 IVP Last administered on 01/07/21at 08:46; Start 01/06/21 at 14:00 Potassium Chloride (Klor-Con) 20 meq 1X ONCE PO Last administered on 01/06/21at 11:19; Start 01/06/21 at 11:30; Stop 01/06/21 at 11:31; Status DC Lactobacillus Rhamnosus (Culturelle) 1 cap BID PO Last administered on 01/07/21at 08:44; Start 01/06/21 at 21:00 Perflutren Protein Type A Microsphe (Optison) 0.66 mg STK-MED ONCE IV ; Start 01/06/21 at 08:00; Stop 01/07/21 at 09:00; Status DC Active Scripts Active Cephalexin 500 Mg Tablet 1 Tab PO TID 7 Days Thera-M Tablet (Multivits,Ca,Minerals/Iron/Fa) 1 Each Tablet 1 Tab PO DAILY Vitamin C (Ascorbic Acid) 500 Mg Tablet 500 Mg PO DAILY Lantus (Insulin Glargine,Hum.rec.anlog) 100 Unit/1 Ml Vial 12 Unit SQ QHS Metolazone 2.5 Mg Tablet 2.5 Mg PO QMWF Klor-Con M20 (Potassium Chloride) 20 Meq Tab.er.prt 20 Meq PO BID Toprol XL (Metoprolol Succinate) 50 Mg Tab.er.24h 50 Mg PO DAILY Furosemide 40 Mg Tablet 40 Mg PO BID Amlodipine Besylate 5 Mg Tablet 5 Mg PO DAILY Atorvastatin Calcium 40 Mg Tablet 40 Mg PO QHS Admelog (Insulin Lispro) 100 Unit/1 Ml Vial 6 Units SQ TIDAC hold if blood sugar less than 90 before a meal Nyamyc (Nystatin) 15 Gm Powder 1 Renee TP BID Stool Soft-Stimulant Lax Tab (Sennosides/Docusate Sodium) 1 Each Tablet 2 Tab PO DAILY Feosol (Ferrous Sulfate) 325 Mg Tablet 325 Mg PO QODAY Synthroid (Levothyroxine Sodium) 150 Mcg Tablet 150 Mcg PO DAILY06 Allopurinol 100 Mg Tablet 100 Mg PO DAILY Paroxetine Hcl 20 Mg Tablet 20 Mg PO DAILY Reported Aspirin 81 Mg Tab.chew 81 Mg PO HS Tylenol (Acetaminophen) 325 Mg Tablet 650 Mg PO PRN Q4HRS Vitals/I & O Vital Sign - Last 24 Hours 01/06/21 01/06/21 01/06/21 01/06/21 11:00 14:49 19:25 20:00 Temp 98.4 97.7 97.6 98.4 97.7 97.6 Pulse 72 66 70 Resp 19 19 16 B/P (MAP) 132/88 (103) 110/58 (75) 123/65 (84) Pulse Ox 96 91 97 O2 Delivery Nasal Cannula Nasal Cannula Nasal Cannula Nasal Cannula O2 Flow Rate 2.0 2.0 2.0 2.0 01/06/21 01/07/21 01/07/21 01/07/21 22:57 03:20 07:00 08:00 Temp 97.8 97.8 98.0 97.8 97.8 98.0 Pulse 67 67 65 Resp 18 16 20 B/P (MAP) 130/84 (99) 105/52 (69) 115/55 (75) Pulse Ox 99 98 96 O2 Delivery Nasal Cannula Nasal Cannula Nasal Cannula Nasal Cannula O2 Flow Rate 2.0 2.0 2.0 2.0 01/07/21 01/07/21 08:44 08:45 Pulse 65 65 B/P (MAP) 115/55 115/55 Intake and Output 01/06/21 01/06/21 01/07/21 15:00 23:00 07:00 Intake Total 230 ml 170 ml 0 ml Output Total 1750 ml Balance 230 ml 170 ml -1750 ml Justifications for Admission Other Justification TERE ALLISON MD Jan 07, 2021 10:47
--- NOTE | 2021-01-07 11:20 | NUR ---
SS following up with discharge planning. SS reviewed pt chart and discussed with pt RN. Pt is currently requiring oxygen at two liters nasal canula. COVID19 negative. Pt has home oxygen. Pt on PO Lasix, Heparin Drip, and IV Zosyn. Cardiology and ID following. PT/OT ordered. SS will continue to follow for discharge planning.
--- NOTE | 2021-01-07 12:29 | PDOC ---
FARHANA HOFFMAN ESPINOZA 01/07/21 1229: CARDIO Progress Notes Date and Time Date of Service 01/07/21 Time of Evaluation 1220 Subjective Subjective: No shortness of breath, No Palpitations, Other (brief episode of left chest pain this morning) Vitals Vitals Vital Signs Date Time Temp Pulse Resp B/P (MAP) Pulse Ox O2 Delivery O2 Flow Rate FiO2 01/07/21 10:38 98.0 68 18 108/55 (72) 98 Nasal Cannula 2.0 98.0 Weight Weight [ ] Input and Output Intake and Output Intake and Output 01/07/21 07:00 Intake Total 400 ml Output Total 1750 ml Balance -1350 ml Intake Oral 300 ml IV Total 100 ml Output Urine Total 1750 ml Laboratory Labs Laboratory Tests Test 01/06/21 13:05 01/06/21 16:50 01/06/21 19:35 01/06/21 20:47 Heparin Anti-Xa Act, Unfractionated 0.41 IU/mL (0.30-0.70) < 0.10 IU/mL (0.30-0.70) Glucose (Fingerstick) 157 mg/dL (70-99) 196 mg/dL (70-99) Test 01/07/21 04:10 01/07/21 07:37 01/07/21 11:12 01/07/21 11:20 White Blood Count 10.0 x10^3/uL (4.0-11.0) Red Blood Count 3.68 x10^6/uL (3.50-5.40) Hemoglobin 10.2 g/dL (12.0-15.5) Hematocrit 31.3 % (36.0-47.0) Mean Corpuscular Volume 85 fL (79-100) Mean Corpuscular Hemoglobin 28 pg (25-35) Mean Corpuscular Hemoglobin Concent 33 g/dL (31-37) Red Cell Distribution Width 14.3 % (11.5-14.5) Platelet Count 200 x10^3/uL (140-400) Neutrophils (%) (Auto) 75 % (31-73) Lymphocytes (%) (Auto) 13 % (24-48) Monocytes (%) (Auto) 9 % (0-9) Eosinophils (%) (Auto) 2 % (0-3) Basophils (%) (Auto) 1 % (0-3) Neutrophils # (Auto) 7.5 x10^3/uL (1.8-7.7) Lymphocytes # (Auto) 1.3 x10^3/uL (1.0-4.8) Monocytes # (Auto) 0.9 x10^3/uL (0.0-1.1) Eosinophils # (Auto) 0.2 x10^3/uL (0.0-0.7) Basophils # (Auto) 0.1 x10^3/uL (0.0-0.2) Heparin Anti-Xa Act, Unfractionated 0.62 IU/mL (0.30-0.70) 0.50 IU/mL (0.30-0.70) Sodium Level 139 mmol/L (136-145) Potassium Level 3.3 mmol/L (3.5-5.1) Chloride Level 100 mmol/L (98-107) Carbon Dioxide Level 32 mmol/L (21-32) Anion Gap 7 (6-14) Blood Urea Nitrogen 52 mg/dL (7-20) Creatinine 2.2 mg/dL (0.6-1.0) Estimated GFR (Cockcroft-Gault) 21.5 Glucose Level 139 mg/dL (70-99) Calcium Level 8.1 mg/dL (8.5-10.1) Glucose (Fingerstick) 120 mg/dL (70-99) 151 mg/dL (70-99) Microbiology Micro Microbiology 01/05/21 Blood Culture - Preliminary, Resulted NO GROWTH AFTER 1 DAY 01/05/21 Urine Culture - Preliminary, Resulted Physical Exam HEENT: Neck Supple W Full Motion Chest: Symmetric LUNGS: Clear to Auscultation Heart: RRR Abdomen: Soft N/T, Other (obese ) Extremities: Other (left BKA, RLE cellulitis ) Neurology: alert, oriented, follow commands Assessment Assessment 1. Chest pain, mixed features 2. Mild troponin elevation; peak 848 with high-sensitivity trop. Most probably type II, demand ischemia 3. Acute on chronic systolic CHF; echo 10/26 with preserved LV systolic function. Echo this morning with LVEF 25% with pattern suggestive Takotsubo's cardiomyopathy. 4. CAD; recent cath in May 2020 showed 60% stenosis involving LAD with negative IFR and 100% RADIO DISPATCHER involving moderate caliber obtuse marginal branch of left circumflex artery with left to left collaterals. 5. NILDA on CKD 6. Leukocytosis, UTI. cultures with E coli. ID following 7. Hypertension: controlled 8. Hyperlipidemia: statin 9. Hypothyroidism: on levothyroxine 10. Diabetes, II 11. PAD s/p left BKA 12. RLE cellulitis; antibiotics as per IM 13. PAFIB; maintaining SR Recommendations Discontinue heparin gtt Secondary prevention; ASA, statin, BB HF optimization No ACEi/ARB with NILDA Reassess LV systolic function on an outpatient basis Supportive care Justicifation of Admission Dx: Justifications for Admission: Justification of Admission Dx: N/A JAY SMYTH MD 01/07/21 1335: CARDIO Progress Notes Assessment Assessment Patient seen and examined. Agree with CHEMICAL TREATMENT OPERATOR's assessment and plan. Acute on chronic systolic heart failure better compensated with diuresis. 2D echo showed LVEF 25%, pattern consistent with Takotsubo's cardiomyopathy. Slight troponin elevation probably demand ischemia. Doubt ACS. Agree with stopping heparin gtt Recent cardiac catheterization showed 60% stenosis involving LAD that was physiologically insignificant based on IFR measurement. Continue current medical management including beta-blockers and repeat 2D echo in 3 months. FARHANA HOFFMAN APRN Jan 07, 2021 12:29 JAY SMYTH MD Jan 07, 2021 13:35
[2021-01-07 14:46] VITALS: BP 103/57
[2021-01-07 19:00] VITALS: BP 116/71
[2021-01-07] MEDS: SENNOSIDES/DOCUSATE 8.6/50MG TABLET. PO SCH (20:11)
[2021-01-07] MEDS: FAMOTIDINE 20 MG TABLET. PO SCH (20:12)
[2021-01-07] MEDS: ATORVASTATIN CALCIUM 40 MG TABLET. PO SCH (20:12)
[2021-01-07] MEDS: INSULIN GLARGINE SYRINGE. SQ SCH (21:24)
[2021-01-07 22:36] VITALS: BP 117/58
[2021-01-08] VITALS (27 sets, daily range): BP systolic 59–128; BP diastolic 46–78
[2021-01-08] MEDS ORDERED: BISACODYL 10 MG SUPP.RECT. PR PRN (02:15)
[2021-01-08] MEDS: NITROGLYCERIN SUBLINGUAL 0.4 MG BOTTLE OF 25. SL PRN (03:16)
--- NOTE | 2021-01-08 03:50 | EKG ---
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
[2021-01-08 03:55] LABS: HEMATOCRIT 34.6 % (36.0-47.0); HEMOGLOBIN 10.9 g/dL (12.0-15.5); RED BLOOD COUNT 4.05 x10^6/uL (3.50-5.40); RED CELL DISTRIBUTION WIDTH 14.3 % (11.5-14.5); WHITE BLOOD COUNT 15.2 x10^3/uL (4.0-11.0)
[2021-01-08 04:03] LABS: CALCIUM 8.4 mg/dL (8.5-10.1); CREATININE 3.1 mg/dL (0.6-1.0); GFR 14.5; MAGNESIUM 2.2 mg/dL (1.8-2.4); POTASSIUM 4.1 mmol/L (3.5-5.1)
[2021-01-08] MEDS: PIPERACILLIN/TAZOBACTAM 2.25 GM in IV NORMAL SALINE 50ML 50 ML IV SCH (05:17)
--- NOTE | 2021-01-08 05:46 | NUR ---
0330 patient c/o chest pain /, radiates to left shoulder, jaw and left upper back. Restless. O2Sat was 96% with 2L NC and dropped to 87% with 4L NC. Called rapid response. RT, Nursing Test Preparer and ENGINE BOSS at bedside. Placed patient on BiPap with setting 18/8, rate 16, FiO2 30%. Gave 3 SL Nitro without relief of CP. BP 106/63. HR 83. Migue morning labs and troponin. Troponin 377, down from 700s. K+ 4.1. Obtained EKG. EKG show no new changes. Paged Dr Lara. Answer service explains Dr Solorio pet nutrition specialist. Waiting call back. Reported rapid response to Dr Powers at this time as well. Patient is restless in bed. BiPap in place with lots of encouragement.
[2021-01-08] MEDS: LEVOTHYROXINE 150 MCG TABLET PO SCH (06:20)
[2021-01-08] MEDS: ONDANSETRON ODT 4 MG TAB.RAPDIS. PO SCH ×3 (06:21→11:14)
[2021-01-08] MEDS: INSULIN LISPRO 300 UNITS/3 ML VIAL. SQ SCH ×6 (08:00→17:00)
[2021-01-08] MEDS: POTASSIUM CHLORIDE 20 MEQ TABLET.ER. PO SCH (08:16)
[2021-01-08] MEDS: PARoxetine 20 MG TABLET PO SCH (08:16)
[2021-01-08] MEDS: LACTOBACILLUS RHAMNOSUS GG 1 CAPSULE. PO SCH ×2 (08:16→21:00)
[2021-01-08] MEDS: ALLOPURINOL 100 MG TABLET. PO SCH (08:16)
[2021-01-08] MEDS: METOPROLOL SUCC 24HR ER 50 MG TAB.ER.24H. PO SCH (08:17)
[2021-01-08] MEDS: metOLazone 2.5 MG TABLET PO SCH (08:17)
[2021-01-08] MEDS: ASPIRIN 325 MG TABLET PO SCH (08:17)
[2021-01-08] MEDS ORDERED: FUROSEMIDE 40 MG TABLET. PO SCH (09:00)
--- NOTE | 2021-01-08 09:09 | PDOC ---
Infectious Disease Note Subjective: Subjective Patient's respiratory status worsen currently on BiPAP continues to remain anxious discussed with nursing staff Vital Signs: Vital Signs Vital Signs Date Time Temp Pulse Resp B/P (MAP) Pulse Ox O2 Delivery O2 Flow Rate FiO2 01/08/21 08:18 75 97/55 01/08/21 07:48 96 BiPAP/CPAP 01/08/21 07:00 98.3 20 2.0 98.3 Physical Exam: PHYSICAL EXAM GENERAL: Alert, oriented x 3, pleasant female, lying in bed anxious on BiPAP HEENT: Normocephalic, atraumatic. No thrush. Oral mucosa moist. NECK: Supple. LUNGS: Decreased breath sounds at the bases, some crackles. No accessory muscle use. CARDIOVASCULAR: S1, S2. No murmurs. ABDOMEN: Soft, nontender, nondistended, obese. Bowel sounds present. EXTREMITIES: Left BKA prosthesis in place, taken down. Stump looks healthy, just dry skin. Right lower extremity, trace edema, mild erythema which is at baseline, no warmth, no weeping lesions, much improved than last admission. DERMATOLOGIC: Warm, dry. No generalized rash except for above. NEUROLOGIC: Alert, arousable, grossly nonfocal GENITOURINARY: Cifuentes in place, new placed today. Peripheral IV looks okay. Medications: Inpatient Meds: Medications reviewed. Labs: Lab Laboratory Tests Test 01/07/21 11:12 01/07/21 11:20 01/07/21 16:45 01/07/21 21:06 Glucose (Fingerstick) 151 mg/dL (70-99) 188 mg/dL (70-99) 147 mg/dL (70-99) Heparin Anti-Xa Act, Unfractionated 0.50 IU/mL (0.30-0.70) Test 01/08/21 03:50 01/08/21 07:42 White Blood Count 15.2 x10^3/uL (4.0-11.0) Red Blood Count 4.05 x10^6/uL (3.50-5.40) Hemoglobin 10.9 g/dL (12.0-15.5) Hematocrit 34.6 % (36.0-47.0) Mean Corpuscular Volume 86 fL (79-100) Mean Corpuscular Hemoglobin 27 pg (25-35) Mean Corpuscular Hemoglobin Concent 31 g/dL (31-37) Red Cell Distribution Width 14.3 % (11.5-14.5) Platelet Count 267 x10^3/uL (140-400) Sodium Level 138 mmol/L (136-145) Potassium Level 4.1 mmol/L (3.5-5.1) Chloride Level 98 mmol/L (98-107) Carbon Dioxide Level 32 mmol/L (21-32) Anion Gap 8 (6-14) Blood Urea Nitrogen 64 mg/dL (7-20) Creatinine 3.1 mg/dL (0.6-1.0) Estimated GFR (Cockcroft-Gault) 14.5 Glucose Level 197 mg/dL (70-99) Calcium Level 8.4 mg/dL (8.5-10.1) Magnesium Level 2.2 mg/dL (1.8-2.4) Troponin I High Sensitivity 377 ng/L (4-50) Glucose (Fingerstick) 168 mg/dL (70-99) Objective: Assessment: 1. Leukocytosis, appears reactive. Improving 2. Pyuria. Urine cultures negative so far 3. History of extended spectrum beta-lactamase Escherichia coli urinary tract infection in the past. 4. 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 5. Congestive heart failure. 6. Chest pain. 7. Chronic kidney disease. 8. Diabetes mellitus 2. 9. History of left [id number] amputation. Plan: Plan of Care 1. Change Zosyn to ceftriaxone. White count is elevated could be reactive, will transition to p.o. soon 2. Monitor labs and cultures. 3. Maintain aspiration precaution. 4. Continue supportive care. Discussed with LADARIUS MARTINEZ MD Jan 08, 2021 09:09
[2021-01-08] MEDS: cefTRIAXone IV Push 1 GM VIAL. IVP SCH (11:06)
--- NOTE | 2021-01-08 11:49 | RAD ---
EXAM: XR CHEST 1V 01/08/2021 10:29 AM CLINICAL INDICATION: Worsening breathing COMPARISON: Chest radiograph 01/05/2021 TECHNIQUE: AP view of the chest FINDINGS: The cardiac silhouette is unchanged. There is engorgement of central pulmonary vascularity and mild diffuse interstitial opacities consistent with mild pulmonary edema, unchanged. Increased, small right and unchanged probable small left pleural effusion. No pneumothorax. IMPRESSION: Unchanged mild pulmonary edema. Increased, small right and unchanged small left pleural effusions. Electronically signed by: Melinda Schroeder MD (01/08/2021 11:46 AM) [id number]
--- NOTE | 2021-01-08 12:42 | PDOC ---
FARHANA HOFFMAN PATHOLOGY TEACHER 01/08/21 1241: CARDIO Progress Notes Date and Time Date of Service 01/08/21 Time of Evaluation 1240 Subjective Subjective: No Palpitations, Other (SOA ) Vitals Vitals Vital Signs Date Time Temp Pulse Resp B/P (MAP) Pulse Ox O2 Delivery O2 Flow Rate FiO2 01/08/21 11:32 98 BiPAP/CPAP 01/08/21 11:00 96.4 71 22 110/70 (83) 96.4 01/08/21 08:00 2.0 Weight Weight [ ] Input and Output Intake and Output Intake and Output 01/08/21 07:00 Intake Total 840 ml Output Total 1200 ml Balance -360 ml Intake Oral 740 ml IV Total 100 ml Output Urine Total 1200 ml # Bowel Movements 2 Laboratory Labs Laboratory Tests Test 01/07/21 16:45 01/07/21 21:06 01/08/21 03:50 01/08/21 07:42 Glucose (Fingerstick) 188 mg/dL (70-99) 147 mg/dL (70-99) 168 mg/dL (70-99) White Blood Count 15.2 x10^3/uL (4.0-11.0) Red Blood Count 4.05 x10^6/uL (3.50-5.40) Hemoglobin 10.9 g/dL (12.0-15.5) Hematocrit 34.6 % (36.0-47.0) Mean Corpuscular Volume 86 fL (79-100) Mean Corpuscular Hemoglobin 27 pg (25-35) Mean Corpuscular Hemoglobin Concent 31 g/dL (31-37) Red Cell Distribution Width 14.3 % (11.5-14.5) Platelet Count 267 x10^3/uL (140-400) Sodium Level 138 mmol/L (136-145) Potassium Level 4.1 mmol/L (3.5-5.1) Chloride Level 98 mmol/L (98-107) Carbon Dioxide Level 32 mmol/L (21-32) Anion Gap 8 (6-14) Blood Urea Nitrogen 64 mg/dL (7-20) Creatinine 3.1 mg/dL (0.6-1.0) Estimated GFR (Cockcroft-Gault) 14.5 Glucose Level 197 mg/dL (70-99) Calcium Level 8.4 mg/dL (8.5-10.1) Magnesium Level 2.2 mg/dL (1.8-2.4) Troponin I High Sensitivity 377 ng/L (4-50) Test 01/08/21 11:40 Glucose (Fingerstick) 170 mg/dL (70-99) Microbiology Micro Microbiology 01/05/21 Blood Culture - Preliminary, Resulted NO GROWTH AFTER 2 DAYS 01/05/21 Urine Culture - Final, Complete 01/05/21 Antimicrobic Susceptibility - Final, Complete Physical Exam HEENT: Neck Supple W Full Motion Chest: Symmetric LUNGS: Other (crackles ) Heart: RRR Abdomen: Soft N/T, Other (obese ) Extremities: Other (left BKA, RLE erythema ) Neurology: alert, oriented, follow commands Assessment Assessment 1. Acute on chronic systolic CHF; echo 10/26 with preserved LV systolic function. Echo this morning with LVEF 25% with pattern suggestive Takotsubo's cardiomyopathy. S/p IV diuresis. Received oral Lasix this morning. 2. Acute respiratory failure secondary to CHF; requiring BiPAP. CXR with pulm edema, pleural effusion 3. Chest pain, mild troponin elevation; peak 848 with high-sensitivity trop. Most probably type II, demand ischemia 4. CAD; recent cath in May 2020 showed 60% stenosis involving LAD with negative IFR and 100% SLOTS MANAGER involving moderate caliber obtuse marginal branch of left circumflex artery with left to left collaterals. 5. NILDA on CKD; Cr ^ 3.1 6. Leukocytosis, UTI. cultures with E coli. ID following 7. Hypertension: presently low end 8. Hyperlipidemia: statin 9. Hypothyroidism: on levothyroxine 10. Diabetes, II 11. PAD s/p left BKA 12. RLE cellulitis; antibiotics as per IM 13. PAFIB; maintaining SR Recommendations Inotropic support with dobutamine therapy Needs fluid offloading; received oral Lasix, metolazone this morning Monitor UOP Avoid nephrotoxins, follow renal recs Secondary prevention; ASA, statin, BB Reassess LV systolic function on an outpatient basis Supportive care Justicifation of Admission Dx: Justifications for Admission: Justification of Admission Dx: N/A JAY SMYTH MD 01/08/212041: CARDIO Progress Notes Assessment Assessment Patient seen and examined. Agree with AUTO HAULER's assessment and plan. Acute on chronic systolic heart failure better compensated with diuresis using inotropic support with dobutamine gtt 2D echo showed LVEF 25%, pattern consistent with Takotsubo's cardiomyopathy. Slight troponin elevation probably demand ischemia. Doubt ACS. Agree with stopping heparin gtt Recent cardiac catheterization showed 60% stenosis involving LAD that was physiologically insignificant based on IFR measurement. Continue current medical management including beta-blockers and repeat 2D echo in 3 months. FARHANA HOFFMAN APRN Jan 08, 2021 12:41 JAY SMYTH MD Jan 08, 2021 20:42
--- NOTE | 2021-01-08 12:52 | PDOC ---
PROGRESS NOTES Date of Service DATE: 01/08/21 TIME: 12:40 Subjective Subjective on cpap. rapid response called last night as she was agitated and out of it per nurse and started on bipap. still on bipap.. creatinine up to 3.1. alert. Objective Objective Vital Signs Date Time Temp Pulse Resp B/P (MAP) Pulse Ox O2 Delivery O2 Flow Rate FiO2 01/08/21 11:32 98 BiPAP/CPAP 01/08/21 11:00 96.4 71 22 110/70 (83) 96.4 01/08/21 08:00 2.0 Intake and Output 01/08/21 07:00 Intake Total 840 ml Output Total 1200 ml Balance -360 ml Intake Oral 740 ml IV Total 100 ml Output Urine Total 1200 ml # Bowel Movements 2 Physical Exam Abdomen: Soft Heart: Regular rate, Normal S1, Normal S2 Extremities: Other (AKA) General: Alert HEENT: Atraumatic Lungs: Clear to auscultation, Other (decreased breath sounds on bipap) Neuro: Normal speech Psych/Mental Status: Mental status NL, Mood NL Skin: No rashes Assessment Assessment Problems1. Chest pain, resolved with sublingual nitroglycerin. 2. Non-ST segment elevated myocardial infarction. 3. Mobui-ev-nppdwnr combined sysolic and diastolic congestive heart failure, 4. Leukocytosis resolved 5. Coronary artery disease, nonobstructive. 60% LAD 05/26 per cardiac cath 6. Diabetes mellitus type 2, on insulin with nephropathy and neuropathy. 7. Chronic kidney disease stage.3. 8. Hypertension. 9. Hyperlipidemia. 10. Hypothyroidism. 11. Obstructive sleep apnea. Treated with CPAP. 12. Morbid obesity. 13. Chronic venous insufficiency of the legs with left below-knee amputation, severe protein calorie malnutrition acute respiratory failure. hx of co2 narcosis in past acute kidney injury due to cardiorenal syndrome and possible intra vascular volume depletion from diuretics e. coli uti Medical Problems: (1) CHF exacerbation Status: Acute (2) CKD (chronic kidney disease) Status: Acute (3) NSTEMI (non-ST elevated myocardial infarction) Status: Acute (4) Person under investigation for COVID-19 Status: Acute (5) Respiratory failure, unspecified with hypoxia Status: Acute (6) UTI (urinary tract infection) Status: Acute Plan Plan of Care consult pulmonary and nephrology discussed with dr. sisillo bipap stopped per dr. keagan herrera now off of bipap d/c iv lasix and metolazone for now renal ultrasound lab tomorrow start heparin for dvt prophylaxis continue dobutamine continue rocephin Comment Review of Relevant I have reviewed the following items helio (where applicable) has been applied. Labs Laboratory Tests Test 01/06/21 13:05 01/06/21 16:50 01/06/21 19:35 01/06/21 20:47 Heparin Anti-Xa Act, Unfractionated 0.41 IU/mL (0.30-0.70) < 0.10 IU/mL (0.30-0.70) Glucose (Fingerstick) 157 mg/dL (70-99) 196 mg/dL (70-99) Test 01/07/21 04:10 01/07/21 07:37 01/07/21 11:12 01/07/21 11:20 White Blood Count 10.0 x10^3/uL (4.0-11.0) Red Blood Count 3.68 x10^6/uL (3.50-5.40) Hemoglobin 10.2 g/dL (12.0-15.5) Hematocrit 31.3 % (36.0-47.0) Mean Corpuscular Volume 85 fL (79-100) Mean Corpuscular Hemoglobin 28 pg (25-35) Mean Corpuscular Hemoglobin Concent 33 g/dL (31-37) Red Cell Distribution Width 14.3 % (11.5-14.5) Platelet Count 200 x10^3/uL (140-400) Neutrophils (%) (Auto) 75 % (31-73) Lymphocytes (%) (Auto) 13 % (24-48) Monocytes (%) (Auto) 9 % (0-9) Eosinophils (%) (Auto) 2 % (0-3) Basophils (%) (Auto) 1 % (0-3) Neutrophils # (Auto) 7.5 x10^3/uL (1.8-7.7) Lymphocytes # (Auto) 1.3 x10^3/uL (1.0-4.8) Monocytes # (Auto) 0.9 x10^3/uL (0.0-1.1) Eosinophils # (Auto) 0.2 x10^3/uL (0.0-0.7) Basophils # (Auto) 0.1 x10^3/uL (0.0-0.2) Heparin Anti-Xa Act, Unfractionated 0.62 IU/mL (0.30-0.70) 0.50 IU/mL (0.30-0.70) Sodium Level 139 mmol/L (136-145) Potassium Level 3.3 mmol/L (3.5-5.1) Chloride Level 100 mmol/L (98-107) Carbon Dioxide Level 32 mmol/L (21-32) Anion Gap 7 (6-14) Blood Urea Nitrogen 52 mg/dL (7-20) Creatinine 2.2 mg/dL (0.6-1.0) Estimated GFR (Cockcroft-Gault) 21.5 Glucose Level 139 mg/dL (70-99) Calcium Level 8.1 mg/dL (8.5-10.1) Glucose (Fingerstick) 120 mg/dL (70-99) 151 mg/dL (70-99) Test 01/07/21 16:45 01/07/21 21:06 01/08/21 03:50 01/08/21 07:42 Glucose (Fingerstick) 188 mg/dL (70-99) 147 mg/dL (70-99) 168 mg/dL (70-99) White Blood Count 15.2 x10^3/uL (4.0-11.0) Red Blood Count 4.05 x10^6/uL (3.50-5.40) Hemoglobin 10.9 g/dL (12.0-15.5) Hematocrit 34.6 % (36.0-47.0) Mean Corpuscular Volume 86 fL (79-100) Mean Corpuscular Hemoglobin 27 pg (25-35) Mean Corpuscular Hemoglobin Concent 31 g/dL (31-37) Red Cell Distribution Width 14.3 % (11.5-14.5) Platelet Count 267 x10^3/uL (140-400) Sodium Level 138 mmol/L (136-145) Potassium Level 4.1 mmol/L (3.5-5.1) Chloride Level 98 mmol/L (98-107) Carbon Dioxide Level 32 mmol/L (21-32) Anion Gap 8 (6-14) Blood Urea Nitrogen 64 mg/dL (7-20) Creatinine 3.1 mg/dL (0.6-1.0) Estimated GFR (Cockcroft-Gault) 14.5 Glucose Level 197 mg/dL (70-99) Calcium Level 8.4 mg/dL (8.5-10.1) Magnesium Level 2.2 mg/dL (1.8-2.4) Troponin I High Sensitivity 377 ng/L (4-50) Test 01/08/21 11:40 Glucose (Fingerstick) 170 mg/dL (70-99) Laboratory Tests Test 01/07/21 16:45 01/07/21 21:06 01/08/21 03:50 01/08/21 07:42 Glucose (Fingerstick) 188 mg/dL (70-99) 147 mg/dL (70-99) 168 mg/dL (70-99) White Blood Count 15.2 x10^3/uL (4.0-11.0) Red Blood Count 4.05 x10^6/uL (3.50-5.40) Hemoglobin 10.9 g/dL (12.0-15.5) Hematocrit 34.6 % (36.0-47.0) Mean Corpuscular Volume 86 fL (79-100) Mean Corpuscular Hemoglobin 27 pg (25-35) Mean Corpuscular Hemoglobin Concent 31 g/dL (31-37) Red Cell Distribution Width 14.3 % (11.5-14.5) Platelet Count 267 x10^3/uL (140-400) Sodium Level 138 mmol/L (136-145) Potassium Level 4.1 mmol/L (3.5-5.1) Chloride Level 98 mmol/L (98-107) Carbon Dioxide Level 32 mmol/L (21-32) Anion Gap 8 (6-14) Blood Urea Nitrogen 64 mg/dL (7-20) Creatinine 3.1 mg/dL (0.6-1.0) Estimated GFR (Cockcroft-Gault) 14.5 Glucose Level 197 mg/dL (70-99) Calcium Level 8.4 mg/dL (8.5-10.1) Magnesium Level 2.2 mg/dL (1.8-2.4) Troponin I High Sensitivity 377 ng/L (4-50) Test 01/08/21 11:40 Glucose (Fingerstick) 170 mg/dL (70-99) Microbiology 01/05/21 Blood Culture - Preliminary, Resulted NO GROWTH AFTER 2 DAYS 01/05/21 Urine Culture - Final, Complete 01/05/21 Antimicrobic Susceptibility - Final, Complete Medications Current Medications Furosemide (Lasix) 80 mg 1X ONCE IVP Last administered on 01/05/21at 09:21; Start 01/05/21 at 09:00; Stop 01/05/21 at 09:01; Status DC Nitroglycerin (Nitrostat) 0.4 mg PRN Q5MIN PRN SL CHEST PAIN Last administered on 01/08/21at 03:16; Start 01/05/21 at 09:30 Ceftriaxone Sodium (Rocephin) 1 gm 1X ONCE IVP Last administered on 01/05/21at 12:41; Start 01/05/21 at 12:00; Stop 01/05/21 at 12:09; Status DC Aspirin (Raulito Aspirin) 325 mg DAILY PO Last administered on 01/08/21at 08:17; Start 01/05/21 at 12:00 Insulin Human Lispro (HumaLOG) 4 units TIDAC SQ Last administered on 01/08/21at 08:25; Start 01/05/21 at 16:30 Insulin Glargine (Lantus Syringe) 12 unit QHS SQ Last administered on 01/07/21at 21:24; Start 01/05/21 at 21:00 Insulin Human Lispro (HumaLOG) 0-8 UNITS TIDWMEALS SQ Last administered on 01/05/21at 23:41; Start 01/05/21 at 17:00 Ondansetron HCl (Zofran Odt) 4 mg PRN Q6HRS PRN PO NAUSEA/VOMITING Last administered on 01/06/21at 23:20; Start 01/05/21 at 11:45 Ondansetron HCl (Zofran Odt) 4 mg TIDAC PO Last administered on 01/08/21 08:16; Start 01/05/21 at 12:00 Levothyroxine Sodium (Synthroid) 150 mcg DAILY06 PO Last administered on 01/08/21 06:20; Start 01/06/21 at 06:00 Furosemide (Lasix) 40 mg BID92 PO Last administered on 01/06/21at 08:38; Start 01/05/21 at 14:00; Stop 01/06/21 at 10:42; Status DC Metolazone (Zaroxolyn) 2.5 mg MoWeFr@0900 PO Last administered on 01/08/21at 08:17; Start 01/06/21 at 09:00; Stop 01/08/21 at 12:26; Status DC Potassium Chloride (Klor-Con) 20 meq BID PO Last administered on 01/06/21at 08:38; Start 01/05/21 at 21:00; Stop 01/06/21 at 10:42; Status DC Metoprolol Succinate (Toprol Xl) 50 mg DAILY PO Last administered on 01/08/21at 08:17; Start 01/06/21 at 09:00 Amlodipine Besylate (Norvasc) 5 mg DAILY PO Last administered on 01/08/21at 08:18; Start 01/06/21 at 09:00 Senna/Docusate Sodium (Senna Plus) 2 tab QHS PO Last administered on 01/07/21at 20:11; Start 01/05/21 at 21:00 Allopurinol (Zyloprim) 100 mg DAILY PO Last administered on 01/08/21at 08:16; Start 01/06/21 at 09:00 Atorvastatin Calcium (Lipitor) 40 mg QHS PO Last administered on 01/07/21at 20:12; Start 01/05/21 at 21:00 Paroxetine HCl (Paxil) 20 mg DAILY PO Last administered on 01/08/21at 08:16; Start 01/06/21 at 09:00 Piperacillin Sod/ Tazobactam Sod 3.375 gm/Sodium Chloride 50 ml @ 100 mls/hr Q6HRS IV Last administered on 01/06/21at 06:08; Start 01/05/21 at 12:00; Stop 01/06/21 at 10:42; Status DC Heparin Sodium (Porcine) (Heparin Sodium) 5,000 unit Q12HR SQ ; Start 01/05/21 at 21:00; Stop 01/05/21 at 18:35; Status DC Famotidine (Pepcid) 20 mg QHS PO Last administered on 01/07/21at 20:12; Start 01/05/21 at 21:00 Acetaminophen (Tylenol) 650 mg PRN Q6HRS PRN PO MILD PAIN / TEMP > 100.3'F Last administered on 01/07/21at 08:45; Start 01/05/21 at 12:15 Heparin Sodium/ Dextrose 250 ml @ 13.32 mls/ hr CONT PRN IV PER PROTOCOL Last administered on 01/06/21at 17:00; Start 01/05/21 at 19:00; Stop 01/07/21 at 14:35; Status DC Heparin Sodium (Porcine) (Heparin Sodium) 2,800 unit PRN Q6HRS PRN IV FOR UFH LEVEL LESS THAN 0.2 Last administered on 01/06/21at 21:30; Start 01/05/21 at 19:00; Stop 01/07/21 at 14:35; Status DC Perflutren Protein Type A Microsphe (Optison) 0.66 mg STK-MED ONCE IV ; Start 01/06/21 at 07:20; Stop 01/06/21 at 07:20; Status DC Perflutren Protein Type A Microsphe (Optison) 0.66 mg 1X ONCE IV ; Start 01/06/21 at 08:15; Stop 01/06/21 at 08:16; Status DC Piperacillin Sod/ Tazobactam Sod 2.25 gm/Sodium Chloride 50 ml @ 100 mls/hr Q6HRS IV Last administered on 01/08/21at 05:17; Start 01/06/21 at 12:00; Stop 01/08/21 at 10:40; Status DC Potassium Chloride (Klor-Con) 20 meq TID PO Last administered on 01/07/21at 08:44; Start 01/06/21 at 14:00; Stop 01/07/21 at 10:42; Status DC Furosemide (Lasix) 40 mg BID92 IVP Last administered on 01/07/21at 08:46; Start 01/06/21 at 14:00; Stop 01/07/21 at 10:42; Status DC Potassium Chloride (Klor-Con) 20 meq 1X ONCE PO Last administered on 01/06/21at 11:19; Start 01/06/21 at 11:30; Stop 01/06/21 at 11:31; Status DC Lactobacillus Rhamnosus (Culturelle) 1 cap BID PO Last administered on 01/08/21at 08:16; Start 01/06/21 at 21:00 Perflutren Protein Type A Microsphe (Optison) 0.66 mg STK-MED ONCE IV ; Start 01/06/21 at 08:00; Stop 01/07/21 at 09:00; Status DC Potassium Chloride (Klor-Con) 20 meq BID PO Last administered on 01/08/21at 08:16; Start 01/07/21 at 21:00; Stop 01/08/21 at 12:26; Status DC Furosemide (Lasix) 40 mg DAILY PO Last administered on 01/08/21at 08:16; Start 01/08/21 at 09:00; Stop 01/08/21 at 12:26; Status DC Potassium Chloride (Klor-Con) 20 meq 1X ONCE PO Last administered on 01/07/21at 11:07; Start 01/07/21 at 10:45; Stop 01/07/21 at 10:46; Status DC Bisacodyl (Dulcolax Supp) 10 mg PRN DAILY PRN IA CONSTIPATION Last administered on 01/08/21at 02:20; Start 01/08/21 at 02:15 Dobutamine HCl/ Dextrose 250 ml @ 17.43 mls/ hr CONT PRN IV SEE I/O RECORD Last administered on 01/08/21at 10:20; Start 01/08/21 at 10:00 Ceftriaxone Sodium (Rocephin) 1 gm Q24H IVP Last administered on 01/08/21at 11:06; Start 01/08/21 at 11:00 Active Scripts Active Cephalexin 500 Mg Tablet 1 Tab PO TID 7 Days Thera-M Tablet (Multivits,Ca,Minerals/Iron/Fa) 1 Each Tablet 1 Tab PO DAILY Vitamin C (Ascorbic Acid) 500 Mg Tablet 500 Mg PO DAILY Lantus (Insulin Glargine,Hum.rec.anlog) 100 Unit/1 Ml Vial 12 Unit SQ QHS Metolazone 2.5 Mg Tablet 2.5 Mg PO QMWF Klor-Con M20 (Potassium Chloride) 20 Meq Tab.er.prt 20 Meq PO BID Toprol XL (Metoprolol Succinate) 50 Mg Tab.er.24h 50 Mg PO DAILY Furosemide 40 Mg Tablet 40 Mg PO BID Amlodipine Besylate 5 Mg Tablet 5 Mg PO DAILY Atorvastatin Calcium 40 Mg Tablet 40 Mg PO QHS Admelog (Insulin Lispro) 100 Unit/1 Ml Vial 6 Units SQ TIDAC hold if blood sugar less than 90 before a meal Nyamyc (Nystatin) 15 Gm Powder 1 Renee TP BID Stool Soft-Stimulant Lax Tab (Sennosides/Docusate Sodium) 1 Each Tablet 2 Tab PO DAILY Feosol (Ferrous Sulfate) 325 Mg Tablet 325 Mg PO QODAY Synthroid (Levothyroxine Sodium) 150 Mcg Tablet 150 Mcg PO DAILY06 Allopurinol 100 Mg Tablet 100 Mg PO DAILY Paroxetine Hcl 20 Mg Tablet 20 Mg PO DAILY Reported Aspirin 81 Mg Tab.chew 81 Mg PO HS Tylenol (Acetaminophen) 325 Mg Tablet 650 Mg PO PRN Q4HRS Vitals/I & O Vital Sign - Last 24 Hours 01/07/21 01/07/21 01/07/21 01/07/21 14:46 19:00 20:00 22:36 Temp 97.3 97.9 97.8 97.3 97.9 97.8 Pulse 61 82 65 Resp 16 19 18 B/P (MAP) 103/57 (72) 116/71 (86) 117/58 (77) Pulse Ox 96 100 100 O2 Delivery Nasal Cannula Nasal Cannula Nasal Cannula Nasal Cannula O2 Flow Rate 2.0 2.0 2.0 2.0 01/08/21 01/08/21 01/08/21 01/08/21 02:23 03:14 03:16 03:19 Temp 98.0 98.0 Pulse 87 84 84 84 Resp 18 22 22 B/P (MAP) 128/78 (95) 100/58 (72) 100/58 101/58 (72) Pulse Ox 97 96 90 O2 Delivery Nasal Cannula Nasal Cannula Nasal Cannula O2 Flow Rate 2.0 2.0 2.0 01/08/21 01/08/21 01/08/21 01/08/21 03:30 03:50 04:00 05:00 Pulse 83 83 B/P (MAP) 106/63 (77) Pulse Ox 87 95 97 97 O2 Delivery Nasal Cannula BiPAP/CPAP BiPAP/CPAP BiPAP/CPAP O2 Flow Rate 4.0 01/08/21 01/08/21 01/08/21 01/08/21 05:25 07:00 07:48 08:00 Temp 98.3 98.3 Pulse 75 81 Resp 20 B/P (MAP) 97/55 (69) 90/53 (65) Pulse Ox 95 96 96 O2 Delivery BiPAP/CPAP Nasal Cannula BiPAP/CPAP Nasal Cannula O2 Flow Rate 2.0 2.0 01/08/21 01/08/21 01/08/21 01/08/21 08:17 08:18 11:00 11:32 Temp 96.4 96.4 Pulse 75 75 71 Resp 22 B/P (MAP) 97/55 97/55 110/70 (83) Pulse Ox 96 98 O2 Delivery BiPAP/CPAP BiPAP/CPAP Intake and Output 01/07/21 01/07/21 01/08/21 15:00 23:00 07:00 Intake Total 360 ml 180 ml 300 ml Output Total 550 ml 650 ml Balance -190 ml 180 ml -350 ml Justifications for Admission Other Justification TERE ALLISON MD Jan 08, 2021 12:52
--- NOTE | 2021-01-08 12:57 | NUR ---
SS following up with discharge planning. SS reviewed pt chart and discussed with pt RN. Pt is currently requiring BIPAP at 30%. COVID19 negative. Pt has home oxygen and CPAP machine at home. Pt had rapid last night. Pt on IV Rocephin and Dobutamine. PT/OT recommended home with home healthcare. SS met with pt to discuss home healthcare services. Pt reported that she is current on services with [facility], ; fax [phone]. SS contacted [facility] and confirmed and notified them that she is in the hospital. Physician, case management, and pt's RN notified. Clinical updates phoned and faxed to [facility]. SS will continue to follow for discharge planning.
[2021-01-08 13:21] LABS: BASE EXCESS ABG -3 mmol/L (-3-3); HCO3 ABG 24 mmol/L (21-28); PCO2 ABG 51 mmHg (35-46); PO2 ABG 65 mmHg (65-108); SAT O2 ABG 90 % (92-99)
[2021-01-08 13:23] LABS: FIO2 ABG 2L NC
--- NOTE | 2021-01-08 13:24 | PDOC2 ---
CONSULT Date of Consult Date of Consult DATE: 01/08/21 TIME: 12:59 Reason for Consult Reason for Consult: NILDA on CKD Identification/Chief Complaint Chief Complaint Currently None Source Source: Chart review History of Present Illness Reason for Visit: Patient is 80-year-old female with history of diabetes, CHF,hypertension,admitted on 12/25 via ER from home with complaints of chest discomfort, left shoulder pain, shortness of breath, which started suddenly a day prior to admission . No F/C ; did have some cough with yellowish white sputum production. No /V/D at presentation . No Urinary complaints She c/o chest pain 09/14, radiating to left shoulder, jaw and left upper back, she was restless. O2Sat with 2L NC dropped to 87% with 4L NC.Respiratory status worsened rapid response was called. Currently on BiPAP She received COVID vaccine in August and RN at bedside. Patient was hospice at home, currently states she wants aggressive care including CPR Past Medical History Cardiovascular: CAD, CHF, HTN, Hyperlipidemia, Other Pulmonary: Bronchitis, Pneumonia, Other CENTRAL NERVOUS SYSTEM: Periperal neuropathy GI: Constipation Heme/Onc: Anemia NOS, Cancer Hepatobiliary: No pertinent hx Psych: Anxiety Musculoskeletal: Osteoarthritis Rheumatologic: No pertinent hx Infectious disease: Other Renal/: Chronic renal insuff, UTI, Urinary Incontinence Endocrine: Diabetes, Hypothyroidism Past Surgical History Past Surgical History: Appendectomy, Cataract Removal, Tonsillectomy, Hysterectomy (Left BKA), Other Family History Family History: Diabetes, Hypertension Social History No ALCOHOL: none Drugs: None Lives: with Family Current Problem List Problem List Problems Medical Problems: (1) CHF exacerbation Status: Acute (2) CKD (chronic kidney disease) Status: Acute (3) NSTEMI (non-ST elevated myocardial infarction) Status: Acute (4) Person under investigation for COVID-19 Status: Acute (5) Respiratory failure, unspecified with hypoxia Status: Acute (6) UTI (urinary tract infection) Status: Acute Current Medications Current Medications Current Medications Furosemide (Lasix) 80 mg 1X ONCE IVP Last administered on 01/05/21at 09:21; Start 01/05/21 at 09:00; Stop 01/05/21 at 09:01; Status DC Nitroglycerin (Nitrostat) 0.4 mg PRN Q5MIN PRN SL CHEST PAIN Last administered on 01/08/21at 03:16; Start 01/05/21 at 09:30 Ceftriaxone Sodium (Rocephin) 1 gm 1X ONCE IVP Last administered on 01/05/21at 12:41; Start 01/05/21 at 12:00; Stop 01/05/21 at 12:09; Status DC Aspirin (Raulito Aspirin) 325 mg DAILY PO Last administered on 01/08/21at 08:17; Start 01/05/21 at 12:00 Insulin Human Lispro (HumaLOG) 4 units TIDAC SQ Last administered on 01/08/21at 08:25; Start 01/05/21 at 16:30 Insulin Glargine (Lantus Syringe) 12 unit QHS SQ Last administered on 01/07/21at 21:24; Start 01/05/21 at 21:00 Insulin Human Lispro (HumaLOG) 0-8 UNITS TIDWMEALS SQ Last administered on 01/05/21at 23:41; Start 01/05/21 at 17:00 Ondansetron HCl (Zofran Odt) 4 mg PRN Q6HRS PRN PO NAUSEA/VOMITING Last administered on 01/06/21at 23:20; Start 01/05/21 at 11:45 Ondansetron HCl (Zofran Odt) 4 mg TIDAC PO Last administered on 01/08/21at 08:16; Start 01/05/21 at 12:00 Levothyroxine Sodium (Synthroid) 150 mcg DAILY06 PO Last administered on 01/08/21at 06:20; Start 01/06/21 at 06:00 Furosemide (Lasix) 40 mg BID92 PO Last administered on 01/06/21at 08:38; Start 01/05/21 at 14:00; Stop 01/06/21 at 10:42; Status DC Metolazone (Zaroxolyn) 2.5 mg MoWeFr@0900 PO Last administered on 01/08/21at 08:17; Start 01/06/21 at 09:00; Stop 01/08/21 at 12:26; Status DC Potassium Chloride (Klor-Con) 20 meq BID PO Last administered on 01/06/21at 08:38; Start 01/05/21 at 21:00; Stop 01/06/21 at 10:42; Status DC Metoprolol Succinate (Toprol Xl) 50 mg DAILY PO Last administered on 01/08/21at 08:17; Start 01/06/21 at 09:00 Amlodipine Besylate (Norvasc) 5 mg DAILY PO Last administered on 01/08/21at 08:18; Start 01/06/21 at 09:00 Senna/Docusate Sodium (Senna Plus) 2 tab QHS PO Last administered on 01/07/21at 20:11; Start 01/05/21 at 21:00 Allopurinol (Zyloprim) 100 mg DAILY PO Last administered on 01/08/21at 08:16; Start 01/06/21 at 09:00 Atorvastatin Calcium (Lipitor) 40 mg QHS PO Last administered on 01/07/21at 20:12; Start 01/05/21 at 21:00 Paroxetine HCl (Paxil) 20 mg DAILY PO Last administered on 01/08/21at 08:16; Start 01/06/21 at 09:00 Piperacillin Sod/ Tazobactam Sod 3.375 gm/Sodium Chloride 50 ml @ 100 mls/hr Q6HRS IV Last administered on 01/06/21at 06:08; Start 01/05/21 at 12:00; Stop 01/06/21 at 10:42; Status DC Heparin Sodium (Porcine) (Heparin Sodium) 5,000 unit Q12HR SQ ; Start 01/05/21 at 21:00; Stop 01/05/21 at 18:35; Status DC Famotidine (Pepcid) 20 mg QHS PO Last administered on 01/07/21at 20:12; Start 01/05/21 at 21:00 Acetaminophen (Tylenol) 650 mg PRN Q6HRS PRN PO MILD PAIN / TEMP > 100.3'F Last administered on 01/07/21at 08:45; Start 01/05/21 at 12:15 Heparin Sodium/ Dextrose 250 ml @ 13.32 mls/ hr CONT PRN IV PER PROTOCOL Last administered on 01/06/21at 17:00; Start 01/05/21 at 19:00; Stop 01/07/21 at 14:35; Status DC Heparin Sodium (Porcine) (Heparin Sodium) 2,800 unit PRN Q6HRS PRN IV FOR UFH LEVEL LESS THAN 0.2 Last administered on 01/06/21at 21:30; Start 01/05/21 at 19:00; Stop 01/07/21 at 14:35; Status DC Perflutren Protein Type A Microsphe (Optison) 0.66 mg STK-MED ONCE IV ; Start 01/06/21 at 07:20; Stop 01/06/21 at 07:20; Status DC Perflutren Protein Type A Microsphe (Optison) 0.66 mg 1X ONCE IV ; Start 01/06/21 at 08:15; Stop 01/06/21 at 08:16; Status DC Piperacillin Sod/ Tazobactam Sod 2.25 gm/Sodium Chloride 50 ml @ 100 mls/hr Q6HRS IV Last administered on 01/08/21at 05:17; Start 01/06/21 at 12:00; Stop 01/08/21 at 10:40; Status DC Potassium Chloride (Klor-Con) 20 meq TID PO Last administered on 01/07/21at 08:44; Start 01/06/21 at 14:00; Stop 01/07/21 at 10:42; Status DC Furosemide (Lasix) 40 mg BID92 IVP Last administered on 01/07/21at 08:46; Start 01/06/21 at 14:00; Stop 01/07/21 at 10:42; Status DC Potassium Chloride (Klor-Con) 20 meq 1X ONCE PO Last administered on 01/06/21at 11:19; Start 01/06/21 at 11:30; Stop 01/06/21 at 11:31; Status DC Lactobacillus Rhamnosus (Culturelle) 1 cap BID PO Last administered on 01/08/21at 08:16; Start 01/06/21 at 21:00 Perflutren Protein Type A Microsphe (Optison) 0.66 mg STK-MED ONCE IV ; Start 01/06/21 at 08:00; Stop 01/07/21 at 09:00; Status DC Potassium Chloride (Klor-Con) 20 meq BID PO Last administered on 01/08/21at 08:16; Start 01/07/21 at 21:00; Stop 01/08/21 at 12:26; Status DC Furosemide (Lasix) 40 mg DAILY PO Last administered on 01/08/21at 08:16; Start 01/08/21 at 09:00; Stop 01/08/21 at 12:26; Status DC Potassium Chloride (Klor-Con) 20 meq 1X ONCE PO Last administered on 01/07/21at 11:07; Start 01/07/21 at 10:45; Stop 01/07/21 at 10:46; Status DC Bisacodyl (Dulcolax Supp) 10 mg PRN DAILY PRN [place] CONSTIPATION Last administered on 01/08/21at 02:20; Start 01/08/21 at 02:15 Dobutamine HCl/ Dextrose 250 ml @ 17.43 mls/ hr CONT PRN IV SEE I/O RECORD Last administered on 01/08/21at 10:20; Start 01/08/21 at 10:00 Ceftriaxone Sodium (Rocephin) 1 gm Q24H IVP Last administered on 01/08/21at 11:06; Start 01/08/21 at 11:00 Heparin Sodium (Porcine) (Heparin Sodium) 5,000 unit Q12HR SQ ; Start 01/08/21 at 21:00; Status UNV Active Scripts Active Cephalexin 500 Mg Tablet 1 Tab PO TID 7 Days Thera-M Tablet (Multivits,Ca,Minerals/Iron/Fa) 1 Each Tablet 1 Tab PO DAILY Vitamin C (Ascorbic Acid) 500 Mg Tablet 500 Mg PO DAILY Lantus (Insulin Glargine,Hum.rec.anlog) 100 Unit/1 Ml Vial 12 Unit SQ QHS Metolazone 2.5 Mg Tablet 2.5 Mg PO QMWF Klor-Con M20 (Potassium Chloride) 20 Meq Tab.er.prt 20 Meq PO BID Toprol XL (Metoprolol Succinate) 50 Mg Tab.er.24h 50 Mg PO DAILY Furosemide 40 Mg Tablet 40 Mg PO BID Amlodipine Besylate 5 Mg Tablet 5 Mg PO DAILY Atorvastatin Calcium 40 Mg Tablet 40 Mg PO QHS Admelog (Insulin Lispro) 100 Unit/1 Ml Vial 6 Units SQ TIDAC hold if blood sugar less than 90 before a meal Nyamyc (Nystatin) 15 Gm Powder 1 Renee TP BID Stool Soft-Stimulant Lax Tab (Sennosides/Docusate Sodium) 1 Each Tablet 2 Tab PO DAILY Feosol (Ferrous Sulfate) 325 Mg Tablet 325 Mg PO QODAY Synthroid (Levothyroxine Sodium) 150 Mcg Tablet 150 Mcg PO DAILY06 Allopurinol 100 Mg Tablet 100 Mg PO DAILY Paroxetine Hcl 20 Mg Tablet 20 Mg PO DAILY Reported Aspirin 81 Mg Tab.chew 81 Mg PO HS Tylenol (Acetaminophen) 325 Mg Tablet 650 Mg PO PRN Q4HRS Allergies Allergies: Coded Allergies: lisinopril (Verified Allergy, Severe, THROAT, TONGUE SWELLING, 01/05/21) adhesive (Verified Allergy, Intermediate, TAPE-RED SKIN, 01/05/21) sertraline HCl (Verified Allergy, Intermediate, 01/05/21) I S O L A T I O N *CONTACT* (Verified Allergy, Unknown, 01/05/21) ESBL morphine (Verified Adverse Reaction, Intermediate, Nausea, 01/05/21) ROS Review of System As per HPI, rest of the ROS is negative Physical Exam Physical Exam GENERAL: on BiPAP HEENT: Normocephalic, atraumatic. Oral mucosa moist. NECK: Supple. LUNGS: Decreased breath sounds at the bases, No accessory muscle use. CV: S1, S2. No murmurs. ABD: Soft, nontender, , obese. Bowel sounds present. EXT: Left BKA prosthesis in place Right lower extremity, trace edema, DERM: Warm, dry. No generalized rash NEUROLOGIC: Alert, arousable, grossly nonfocal Cifuentes in place, PSYCH Cooperative Vital Signs Vital Signs Date Time Temp Pulse Resp B/P (MAP) Pulse Ox O2 Delivery O2 Flow Rate FiO2 01/08/21 11:32 98 BiPAP/CPAP 01/08/21 11:00 96.4 71 22 110/70 (83) 96.4 01/08/21 08:00 2.0 Assessment & Plan NILDA - Suspect ATN , Creatinine trending up , suspect Cardiorenal/ ATN/ Hypotensive, On Diuretics- Lasix and Metolazone . 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 Present since 2013 per [facility] labs . Renal US 04/28 Mildly enlarged kidneys bilaterally . Proteinuria- 24 Hr Ur Pr < 500 mg . Patient didn't follow up with us as OP Chest pain- last night , resolved with sublingual nitroglycerin. Acute on chronic systolic CHF; echo 10/26 with preserved LV systolic function.Recent Echo with LVEF 25% with pattern suggestive Takotsubo's CMP. Inotropic support with dobutamine therapy per cardiology Renal Calculus - chronic , seen on recent CT as well No hydronephrosis Pyuria. 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 Obesity. Anemia: Fe deficiency , SUTTON done in past - SPEP abnormal IgG and IgA, IgM normal, No M spike, K and L elevated , Ratio normal Hx of Coronary artery disease, nonobstructive. 60% LAD 05/26 per cardiac cath Hypertension currently Hypotensive Obstructive sleep apnea. Treated with CPAP. Labs Labs Laboratory Tests Test 01/06/21 13:05 01/06/21 16:50 01/06/21 19:35 01/06/21 20:47 Heparin Anti-Xa Act, Unfractionated 0.41 IU/mL (0.30-0.70) < 0.10 IU/mL (0.30-0.70) Glucose (Fingerstick) 157 mg/dL (70-99) 196 mg/dL (70-99) Test 01/07/21 04:10 01/07/21 07:37 01/07/21 11:12 01/07/21 11:20 White Blood Count 10.0 x10^3/uL (4.0-11.0) Red Blood Count 3.68 x10^6/uL (3.50-5.40) Hemoglobin 10.2 g/dL (12.0-15.5) Hematocrit 31.3 % (36.0-47.0) Mean Corpuscular Volume 85 fL (79-100) Mean Corpuscular Hemoglobin 28 pg (25-35) Mean Corpuscular Hemoglobin Concent 33 g/dL (31-37) Red Cell Distribution Width 14.3 % (11.5-14.5) Platelet Count 200 x10^3/uL (140-400) Neutrophils (%) (Auto) 75 % (31-73) Lymphocytes (%) (Auto) 13 % (24-48) Monocytes (%) (Auto) 9 % (0-9) Eosinophils (%) (Auto) 2 % (0-3) Basophils (%) (Auto) 1 % (0-3) Neutrophils # (Auto) 7.5 x10^3/uL (1.8-7.7) Lymphocytes # (Auto) 1.3 x10^3/uL (1.0-4.8) Monocytes # (Auto) 0.9 x10^3/uL (0.0-1.1) Eosinophils # (Auto) 0.2 x10^3/uL (0.0-0.7) Basophils # (Auto) 0.1 x10^3/uL (0.0-0.2) Heparin Anti-Xa Act, Unfractionated 0.62 IU/mL (0.30-0.70) 0.50 IU/mL (0.30-0.70) Sodium Level 139 mmol/L (136-145) Potassium Level 3.3 mmol/L (3.5-5.1) Chloride Level 100 mmol/L (98-107) Carbon Dioxide Level 32 mmol/L (21-32) Anion Gap 7 (6-14) Blood Urea Nitrogen 52 mg/dL (7-20) Creatinine 2.2 mg/dL (0.6-1.0) Estimated GFR (Cockcroft-Gault) 21.5 Glucose Level 139 mg/dL (70-99) Calcium Level 8.1 mg/dL (8.5-10.1) Glucose (Fingerstick) 120 mg/dL (70-99) 151 mg/dL (70-99) Test 01/07/21 16:45 01/07/21 21:06 01/08/21 03:50 01/08/21 07:42 Glucose (Fingerstick) 188 mg/dL (70-99) 147 mg/dL (70-99) 168 mg/dL (70-99) White Blood Count 15.2 x10^3/uL (4.0-11.0) Red Blood Count 4.05 x10^6/uL (3.50-5.40) Hemoglobin 10.9 g/dL (12.0-15.5) Hematocrit 34.6 % (36.0-47.0) Mean Corpuscular Volume 86 fL (79-100) Mean Corpuscular Hemoglobin 27 pg (25-35) Mean Corpuscular Hemoglobin Concent 31 g/dL (31-37) Red Cell Distribution Width 14.3 % (11.5-14.5) Platelet Count 267 x10^3/uL (140-400) Sodium Level 138 mmol/L (136-145) Potassium Level 4.1 mmol/L (3.5-5.1) Chloride Level 98 mmol/L (98-107) Carbon Dioxide Level 32 mmol/L (21-32) Anion Gap 8 (6-14) Blood Urea Nitrogen 64 mg/dL (7-20) Creatinine 3.1 mg/dL (0.6-1.0) Estimated GFR (Cockcroft-Gault) 14.5 Glucose Level 197 mg/dL (70-99) Calcium Level 8.4 mg/dL (8.5-10.1) Magnesium Level 2.2 mg/dL (1.8-2.4) Troponin I High Sensitivity 377 ng/L (4-50) Test 01/08/21 11:40 Glucose (Fingerstick) 170 mg/dL (70-99) Laboratory Tests Test 01/07/21 16:45 01/07/21 21:06 01/08/21 03:50 01/08/21 07:42 Glucose (Fingerstick) 188 mg/dL (70-99) 147 mg/dL (70-99) 168 mg/dL (70-99) White Blood Count 15.2 x10^3/uL (4.0-11.0) Red Blood Count 4.05 x10^6/uL (3.50-5.40) Hemoglobin 10.9 g/dL (12.0-15.5) Hematocrit 34.6 % (36.0-47.0) Mean Corpuscular Volume 86 fL (79-100) Mean Corpuscular Hemoglobin 27 pg (25-35) Mean Corpuscular Hemoglobin Concent 31 g/dL (31-37) Red Cell Distribution Width 14.3 % (11.5-14.5) Platelet Count 267 x10^3/uL (140-400) Sodium Level 138 mmol/L (136-145) Potassium Level 4.1 mmol/L (3.5-5.1) Chloride Level 98 mmol/L (98-107) Carbon Dioxide Level 32 mmol/L (21-32) Anion Gap 8 (6-14) Blood Urea Nitrogen 64 mg/dL (7-20) Creatinine 3.1 mg/dL (0.6-1.0) Estimated GFR (Cockcroft-Gault) 14.5 Glucose Level 197 mg/dL (70-99) Calcium Level 8.4 mg/dL (8.5-10.1) Magnesium Level 2.2 mg/dL (1.8-2.4) Troponin I High Sensitivity 377 ng/L (4-50) Test 01/08/21 11:40 Glucose (Fingerstick) 170 mg/dL (70-99) Review All relevant outside records, renal labs, imaging studies, telemetry/EKG's were reviewed. Images Images CXR-- FINDINGS: The cardiac silhouette is unchanged. There is engorgement of central pulmonary vascularity and mild diffuse interstitial opacities consistent with mild pulmonary edema, unchanged. Increased, small right and unchanged probable small left pleural effusion. No pneumothorax. IMPRESSION: Unchanged mild pulmonary edema. Increased, small right and unchanged small left pleural effusions. ISRAEL WHEAT MD Jan 08, 2021 13:24
[2021-01-08] MEDS ORDERED: HYDROcodone/APAP 5/325MG 1 TAB TABLET PO PRN (13:45)
[2021-01-08] MEDS: HEPARIN for SUB-Q USE 5,000 UNIT/ML VIAL. SQ SCH ×2 (13:53→21:11)
--- NOTE | 2021-01-08 14:38 | PDOC ---
PULMONARY PROGRESS NOTES DATE: 01/08/21 TIME: 14:36 Vitals Vital Signs Date Time Temp Pulse Resp B/P (MAP) Pulse Ox O2 Delivery O2 Flow Rate FiO2 01/08/21 11:32 98 BiPAP/CPAP 01/08/21 11:00 96.4 71 22 110/70 (83) 96.4 01/08/21 08:00 2.0 General: Alert Lungs: Crackles Cardiovascular: S1, S2 Abdomen: Soft, Non-tender, Other Extremities: Other Labs Laboratory Tests Test 01/06/21 16:50 01/06/21 19:35 01/06/21 20:47 01/07/21 04:10 Glucose (Fingerstick) 157 mg/dL (70-99) 196 mg/dL (70-99) Heparin Anti-Xa Act, Unfractionated < 0.10 IU/mL (0.30-0.70) 0.62 IU/mL (0.30-0.70) White Blood Count 10.0 x10^3/uL (4.0-11.0) Red Blood Count 3.68 x10^6/uL (3.50-5.40) Hemoglobin 10.2 g/dL (12.0-15.5) Hematocrit 31.3 % (36.0-47.0) Mean Corpuscular Volume 85 fL (79-100) Mean Corpuscular Hemoglobin 28 pg (25-35) Mean Corpuscular Hemoglobin Concent 33 g/dL (31-37) Red Cell Distribution Width 14.3 % (11.5-14.5) Platelet Count 200 x10^3/uL (140-400) Neutrophils (%) (Auto) 75 % (31-73) Lymphocytes (%) (Auto) 13 % (24-48) Monocytes (%) (Auto) 9 % (0-9) Eosinophils (%) (Auto) 2 % (0-3) Basophils (%) (Auto) 1 % (0-3) Neutrophils # (Auto) 7.5 x10^3/uL (1.8-7.7) Lymphocytes # (Auto) 1.3 x10^3/uL (1.0-4.8) Monocytes # (Auto) 0.9 x10^3/uL (0.0-1.1) Eosinophils # (Auto) 0.2 x10^3/uL (0.0-0.7) Basophils # (Auto) 0.1 x10^3/uL (0.0-0.2) Sodium Level 139 mmol/L (136-145) Potassium Level 3.3 mmol/L (3.5-5.1) Chloride Level 100 mmol/L (98-107) Carbon Dioxide Level 32 mmol/L (21-32) Anion Gap 7 (6-14) Blood Urea Nitrogen 52 mg/dL (7-20) Creatinine 2.2 mg/dL (0.6-1.0) Estimated GFR (Cockcroft-Gault) 21.5 Glucose Level 139 mg/dL (70-99) Calcium Level 8.1 mg/dL (8.5-10.1) Test 01/07/21 07:37 01/07/21 11:12 01/07/21 11:20 01/07/21 16:45 Glucose (Fingerstick) 120 mg/dL (70-99) 151 mg/dL (70-99) 188 mg/dL (70-99) Heparin Anti-Xa Act, Unfractionated 0.50 IU/mL (0.30-0.70) Test 01/07/21 21:06 01/08/21 03:50 01/08/21 07:42 01/08/21 11:40 Glucose (Fingerstick) 147 mg/dL (70-99) 168 mg/dL (70-99) 170 mg/dL (70-99) White Blood Count 15.2 x10^3/uL (4.0-11.0) Red Blood Count 4.05 x10^6/uL (3.50-5.40) Hemoglobin 10.9 g/dL (12.0-15.5) Hematocrit 34.6 % (36.0-47.0) Mean Corpuscular Volume 86 fL (79-100) Mean Corpuscular Hemoglobin 27 pg (25-35) Mean Corpuscular Hemoglobin Concent 31 g/dL (31-37) Red Cell Distribution Width 14.3 % (11.5-14.5) Platelet Count 267 x10^3/uL (140-400) Sodium Level 138 mmol/L (136-145) Potassium Level 4.1 mmol/L (3.5-5.1) Chloride Level 98 mmol/L (98-107) Carbon Dioxide Level 32 mmol/L (21-32) Anion Gap 8 (6-14) Blood Urea Nitrogen 64 mg/dL (7-20) Creatinine 3.1 mg/dL (0.6-1.0) Estimated GFR (Cockcroft-Gault) 14.5 Glucose Level 197 mg/dL (70-99) Calcium Level 8.4 mg/dL (8.5-10.1) Magnesium Level 2.2 mg/dL (1.8-2.4) Troponin I High Sensitivity 377 ng/L (4-50) Test 01/08/21 13:15 O2 Saturation 90 % (92-99) Arterial Blood pH 7.29 (7.35-7.45) Arterial Blood pCO2 at Patient Temp 51 mmHg (35-46) Arterial Blood pO2 at Patient Temp 65 mmHg (65-108) Arterial Blood HCO3 24 mmol/L (21-28) Arterial Blood Base Excess -3 mmol/L (-3-3) FiO2 2l nc Laboratory Tests Test 01/07/21 16:45 01/07/21 21:06 01/08/21 03:50 01/08/21 07:42 Glucose (Fingerstick) 188 mg/dL (70-99) 147 mg/dL (70-99) 168 mg/dL (70-99) White Blood Count 15.2 x10^3/uL (4.0-11.0) Red Blood Count 4.05 x10^6/uL (3.50-5.40) Hemoglobin 10.9 g/dL (12.0-15.5) Hematocrit 34.6 % (36.0-47.0) Mean Corpuscular Volume 86 fL (79-100) Mean Corpuscular Hemoglobin 27 pg (25-35) Mean Corpuscular Hemoglobin Concent 31 g/dL (31-37) Red Cell Distribution Width 14.3 % (11.5-14.5) Platelet Count 267 x10^3/uL (140-400) Sodium Level 138 mmol/L (136-145) Potassium Level 4.1 mmol/L (3.5-5.1) Chloride Level 98 mmol/L (98-107) Carbon Dioxide Level 32 mmol/L (21-32) Anion Gap 8 (6-14) Blood Urea Nitrogen 64 mg/dL (7-20) Creatinine 3.1 mg/dL (0.6-1.0) Estimated GFR (Cockcroft-Gault) 14.5 Glucose Level 197 mg/dL (70-99) Calcium Level 8.4 mg/dL (8.5-10.1) Magnesium Level 2.2 mg/dL (1.8-2.4) Troponin I High Sensitivity 377 ng/L (4-50) Test 01/08/21 11:40 01/08/21 13:15 Glucose (Fingerstick) 170 mg/dL (70-99) O2 Saturation 90 % (92-99) Arterial Blood pH 7.29 (7.35-7.45) Arterial Blood pCO2 at Patient Temp 51 mmHg (35-46) Arterial Blood pO2 at Patient Temp 65 mmHg (65-108) Arterial Blood HCO3 24 mmol/L (21-28) Arterial Blood Base Excess -3 mmol/L (-3-3) FiO2 2l nc Medications Active Scripts Medications Dose Route/Sig Max Daily Dose Days Date Category Dose Instructions Cephalexin 500 Mg Tablet 1 Tab PO TID 7 07/05/20 Rx Thera-M Tablet (Multivits,Ca,Minerals/Iron/Fa) 1 Each Tablet 1 Tab PO DAILY 07/05/20 Rx Vitamin C (Ascorbic Acid) 500 Mg Tablet 500 Mg PO DAILY 07/05/20 Rx Lantus (Insulin Glargine,Hum.rec.anlog) 100 Unit/1 Ml Vial 12 Unit SQ QHS 07/05/20 Rx Metolazone 2.5 Mg Tablet 2.5 Mg PO QMWF 07/05/20 Rx Klor-Con M20 (Potassium Chloride) 20 Meq Tab.er.prt 20 Meq PO BID 07/05/20 Rx Toprol XL (Metoprolol Succinate) 50 Mg Tab.er.24h 50 Mg PO DAILY 07/05/20 Rx Furosemide 40 Mg Tablet 40 Mg PO BID 06/12/20 Rx Amlodipine Besylate 5 Mg Tablet 5 Mg PO DAILY 06/12/20 Rx Atorvastatin Calcium 40 Mg Tablet 40 Mg PO QHS 06/12/20 Rx Admelog (Insulin Lispro) 100 Unit/1 Ml Vial 6 Units SQ TIDAC 06/04/20 Rx hold if blood sugar less than 90 before a meal Nyamyc (Nystatin) 15 Gm Powder 1 Renee TP BID 05/12/20 Rx Stool Soft-Stimulant Lax Tab (Sennosides/Docusate Sodium) 1 Each Tablet 2 Tab PO DAILY 05/12/20 Rx Feosol (Ferrous Sulfate) 325 Mg Tablet 325 Mg PO QODAY 05/12/20 Rx Aspirin 81 Mg Tab.chew 81 Mg PO HS 05/03/20 Reported Synthroid (Levothyroxine Sodium) 150 Mcg Tablet 150 Mcg PO DAILY06 05/21/19 Rx Allopurinol 100 Mg Tablet 100 Mg PO DAILY 05/21/19 Rx Paroxetine Hcl 20 Mg Tablet 20 Mg PO DAILY 05/21/19 Rx Tylenol (Acetaminophen) 325 Mg Tablet 650 Mg PO PRN Q4HRS 05/19/13 Reported Impression . Full consult dictated Acute on chronic hypercapnic hypoxemic respiratory failure Acute on chronic diastolic heart failure Continue current support Discussed with RYNE Ospina MD Jan 08, 2021 14:37
--- NOTE | 2021-01-08 15:30 | RAD ---
EXAM: US RENAL BILAT 01/08/2021 1:43 PM INDICATION: Acute kidney injury, rule out hydronephrosis. COMPARISON: Renal ultrasound 05/04/2020 TECHNIQUE: Grayscale and color Doppler ultrasound images of the kidneys and bladder FINDINGS: The right kidney measures 12.7 x 4.6 x 5.6 cm. The left kidney measures 13.5 x 5.3 x 5.3 cm. Renal echogenicity and cortical thickness are normal. No hydronephrosis. Known bilateral renal calculi are better seen on prior CT. The urinary bladder is decompressed around a Cifuentes catheter, unable to evaluate. IMPRESSION: No hydronephrosis. Electronically signed by: Melinda Schroeder MD (01/08/2021 3:27 PM) [id number]
--- NOTE | 2021-01-08 18:50 | NUR ---
Went into patient's room when they hit the call light to adjust in bed, pt stated they felt like they were going to vomit. Took bipap off and patient became unresponsive with heart rate beginning to katy. Aneesh arnold called at 1820 with return of circulation achieved at 1832. Pt transferred to ICU and Dr. Lara notified of change in patient condition.
[2021-01-08] MEDS ORDERED: PROPOFOL 100 ML IV PRN (19:00)
[2021-01-08] MEDS ORDERED: NOREPINEPHRINE VIAL 8 MG in IV DEXTROSE 5% 250 ML IV PRN (19:00)
[2021-01-08] MEDS ORDERED: POLYVINYL ALCOHOL 1.4% OPHTH SOLUTION 15ML BOTTLE. OU PRN (19:00)
[2021-01-08] MEDS ORDERED: ATROPINE 0.5 MG/5 ML DISP.SYRINGE. IV PRN (19:00)
[2021-01-08] MEDS ORDERED: IV NORMAL SALINE 500ML BAG 500 ML IV PRN (19:00)
[2021-01-08] MEDS ORDERED: DEXMEDETOMIDINE 400 MCG in IV NORMAL SALINE 100ML 96 ML IV PRN (19:00)
--- NOTE | 2021-01-08 19:07 | PDOC5 ---
CODE REPORT CODE REPORT Code clayton called at 1820. Per rn, pt was off bipap for less than 5 minutes when she went unresponsive, PEA. ACLS protocol started and pt was being bagged. Patient was intubated for airway protection. RN reported idioventricular rhythm during pulse check. Epi and bicarb given. ROSC at 1835. Pt given analgesia-has spontaneous respirations upon ROSC. Will need transfer to ICU for higher level of care. See rn documents regarding specifics of medications and timing. Indication: Respiratory failure Consent: Unable to give consent due to emergent nature. Medications Used: see nursing note Procedure: The patient was placed in the appropriate position. Intubation was performed via glide scope, 7.5 ett palced, 20 at the lip, secured with RT device. Initial confirmation of adequate colorimetry, placement included bilateral breath sounds, tube fogging, adequate chest rise, adequate pulse oximetry reading. A chest x-ray to verify correct placement of the tube showed appropriate tube position. The patient tolerated the procedure well. Complications: none. [facility] Jan 08, 2021 19:07
[2021-01-08] MEDS: MIDAZOLAM 100mg/100ml NS BAG 100 ML IV PRN (19:20)
[2021-01-08] MEDS: NOREPINEPHRINE VIAL 8 MG in IV DEXTROSE 5% 250 ML IV PRN (19:20)
--- NOTE | 2021-01-08 19:39 | RAD ---
EXAMINATION: Chest and abdomen radiographs. VIEWS: Single view of the chest and single view of the abdomen. COMPARISON: Same day radiograph INDICATION:80 years, Female, check endotracheal and enteric tube placement. FINDINGS: CHEST: Normal cardiomediastinal silhouette. Worsening diffuse bilateral reticular and patchy airspace opacities. Unchanged small bilateral pleural effusions. No pneumothorax. No acute osseous process. E ndotracheal tube tip locates approximately 5.2 cm proximal to the marie. ABDOMEN: Enteric tube tip and sidehole are seen within the stomach. Nonobstructive bowel gas pattern in the visualized abdomen. No gross pneumoperitoneum. No acute osseous process. IMPRESSION: 1. Satisfactory positions of the endotracheal and enteric tubes. 2. Worsening moderate to severe pulmonary edema. 3. Unchanged small bilateral pleural effusions. Electronically signed by: Lilia Lopez MD (01/08/2021 7:37 PM) [facility]
[2021-01-08 20:35] LABS: BASO % 0 % (0-3); EOS % 0 % (0-3); HEMATOCRIT 35.5 % (36.0-47.0); HEMOGLOBIN 11.1 g/dL (12.0-15.5); LYMPH # 1.2 x10^3/uL (1.0-4.8); LYMPH % 8 % (24-48); MEAN CORPUSCULAR HEMOGLOBIN 27 pg (25-35); MEAN CORPUSCULAR HGB CONC 31 g/dL (31-37); MEAN CORPUSCULAR VOLUME 86 fL (79-100); MONO # 0.6 x10^3/uL (0.0-1.1); MONO % 4 % (0-9); NEUT # 13.3 x10^3/uL (1.8-7.7); NEUT % 88 % (31-73); PLATELET COUNT 241 x10^3/uL (140-400); RED BLOOD COUNT 4.14 x10^6/uL (3.50-5.40); RED CELL DISTRIBUTION WIDTH 14.3 % (11.5-14.5); WHITE BLOOD COUNT 15.2 x10^3/uL (4.0-11.0)
[2021-01-08] MEDS ORDERED: fentaNYL PF VIAL 100 MCG/2 ML VIAL ONE (20:42)
[2021-01-08 20:44] LABS: CALCIUM 8.3 mg/dL (8.5-10.1); CREATININE 3.7 mg/dL (0.6-1.0); GFR 11.8; MAGNESIUM 2.5 mg/dL (1.8-2.4); POTASSIUM 4.8 mmol/L (3.5-5.1)
[2021-01-08] MEDS: SENNOSIDES/DOCUSATE 8.6/50MG TABLET. PO SCH (21:00)
[2021-01-08] MEDS: IV RINGERS,LACTATED 1000ML 1,000 ML IV SCH (21:08)
[2021-01-08] MEDS: CHLORHEXIDINE 0.12% 15 ML MOUTHWASH. MM SCH (21:10)
[2021-01-08] MEDS: FAMOTIDINE 20 MG TABLET. PO SCH (21:10)
[2021-01-08] MEDS: ATORVASTATIN CALCIUM 40 MG TABLET. PO SCH (21:10)
[2021-01-08] MEDS: INSULIN GLARGINE SYRINGE. SQ SCH (21:14)
--- NOTE | 2021-01-08 21:39 | NUR ---
Patient transferred to ICU at shift change after coding on 6th floor. Patient attached to ICU monitors, starting to move around and fight vent. Sedation started (Versed and Fentanyl), and Levophed started as well for low BP. Patient only had [address], another IV placed for further access. OG tube placed, CXR and KUB obtained to verify placement. In report, CVC RN stated she had notified Dr. Lara. Dr. Lopez notified of events and current patient status. Orders received to start LR at 100 cc/hr to help BP, get repeat ABG tonight, decrease RR to 14 if necessary based on ABG tonight, and get labs/CXR/ABG in AM. ABG obtained and FiO2 decreased to 60% by RT. Patient's and son, Bin, notified by nursing quality assurance supervisor trim of events. and son at bedside. Larry, patient's other son, updated via phone but unable to come up tonight. Patient stabilized at this time, will continue to monitor.
--- NOTE | 2021-01-08 22:24 | CONS ---
DATE OF CONSULTATION: 01/08/2021 ATTENDING PHYSICIAN:. Ramirez Lara MD REASON FOR CONSULTATION: The patient is seen in pulmonary consultation at the request of Dr. Lara for acute hypercapnic respiratory failure. HISTORY OF PRESENT ILLNESS: The patient is a 80-year-old female that presented with episodes of left-sided chest discomfort radiating to the left shoulder and increasing shortness of breath. Chest x-ray revealed basilar infiltrates, cardiomegaly. Initial troponin was elevated. The patient has a history of chronic diastolic heart failure, obstructive sleep apnea, uses CPAP at home, hypertension, chronic kidney disease. She was seen in consult by event specialist food demonstrator. Recommended continue diuresis. Continue home medication. Continue CPAP for obstructive sleep apnea. Last evening, apparently the patient was having difficulty breathing. They placed her on BiPAP. I was consulted. Blood gas today at 1315 revealed a pH of 7.29, PaCO2 of 51, pO2 of 65 on 2 liters. The patient is awake, alert, following commands. She denies any current chest pain. No productive cough. PAST MEDICAL HISTORY: Otherwise remarkable for as indicated above, obstructive sleep apnea, uses CPAP at home. She has a history of type 2 diabetes, peripheral neuropathy, nephropathy related to chronic kidney disease and coronary artery disease. She has had previous left lower extremity amputation, she wears a prosthesis, chronic renal insufficiency. PAST SURGICAL HISTORY: No recent major surgeries. ALLERGIES: LISINOPRIL, MORPHINE, SERTRALINE. FAMILY HISTORY: Noncontributory. REVIEW OF SYSTEMS: CONSTITUTIONAL: Denies fever or chills. EYES: No change in visual acuity. HENT: No nasal congestion or sore throat. PULMONARY: As indicated above. CARDIOVASCULAR: As indicated above. GASTROINTESTINAL: No nausea, vomiting, diarrhea. GENITOURINARY: No dysuria or frequency. MUSCULOSKELETAL: No localized muscle aches or joint pains. SKIN: No new skin rashes. NEUROLOGIC: No headaches, diplopia or blurred vision. CURRENT MEDICATIONS: List was reviewed. She is currently receiving dobutamine, Norvasc, aspirin, Lipitor, ceftriaxone, Pepcid, heparin for DVT prophylaxis, insulin, levothyroxine, Zaroxolyn was discontinued, metoprolol, nitroglycerin and Paxil. PHYSICAL EXAMINATION: GENERAL: The patient was on BiPAP. I took off the BiPAP. She did not have any respiratory distress, currently on 2 liters. HEENT: Eyes: The sclerae were nonicteric. NECK: Jugular venous distention was not elevated. No lymphadenopathy. CHEST: Full expansion. CHEST: Adequate flow, no wheezes. CARDIOVASCULAR: Regular rate and rhythm with S1, S2, no S3. ABDOMEN: Soft, obese. EXTREMITIES: Evidence of previous left below-knee amputation. LABORATORY DATA: Reviewed. White count was elevated. Arterial blood gas as indicated above. Electrolytes were noted. BUN and creatinine were elevated. Toxicology screen was negative. Urine noted. Serology for influenza and SARS-CoV-2 was negative. Chest x-ray revealed pulmonary edema that was done today. CT abdomen, chest and pelvis, bilateral small effusions with atelectasis, mild vascular congestion. IMPRESSION: 1. Acute on chronic hypoxemic hypercapnic respiratory failure. 2. Acute on chronic diastolic heart failure. 3. Peripheral arterial disease, status post left knee amputation. 4. Obstructive sleep apnea. 5. Chest pain per Cardiology. 6. Leukocytosis related to urinary tract infection, Escherichia coli. Infectious Disease has been following. 7. Hypothyroidism. 8. Type 2 diabetes. 9. Paroxysmal atrial fibrillation. PLAN: 1. The patient has done well while in the room off the BiPAP. I recommend continue to receive CPAP/BiPAP at bedtime. 2. Continue oxygen at 2 liters per nasal cannula throughout the day. Do not increase FiO2 delivery. 3. Continue inotropic support with dobutamine per Cardiology. 4. Antibiotics per ID. I do appreciate the privilege in sharing in the patient's care. CHRYSTAL DR: Kristine TID: [id number]
[2021-01-09] VITALS (33 sets, daily range): BP systolic 86–136; BP diastolic 45–78
[2021-01-09 04:14] LABS: BASO % 0 % (0-3); EOS % 0 % (0-3); HEMATOCRIT 32.3 % (36.0-47.0); HEMOGLOBIN 10.3 g/dL (12.0-15.5); LYMPH # 0.7 x10^3/uL (1.0-4.8); LYMPH % 5 % (24-48); MEAN CORPUSCULAR HEMOGLOBIN 27 pg (25-35); MEAN CORPUSCULAR HGB CONC 32 g/dL (31-37); MEAN CORPUSCULAR VOLUME 83 fL (79-100); MONO # 0.9 x10^3/uL (0.0-1.1); MONO % 7 % (0-9); NEUT # 11.8 x10^3/uL (1.8-7.7); NEUT % 88 % (31-73); PLATELET COUNT 225 x10^3/uL (140-400); RED BLOOD COUNT 3.89 x10^6/uL (3.50-5.40); RED CELL DISTRIBUTION WIDTH 14.2 % (11.5-14.5); WHITE BLOOD COUNT 13.5 x10^3/uL (4.0-11.0)
[2021-01-09 04:36] LABS: CALCIUM 7.8 mg/dL (8.5-10.1); CREATININE 3.6 mg/dL (0.6-1.0); GFR 12.2; POTASSIUM 4.5 mmol/L (3.5-5.1)
--- NOTE | 2021-01-09 05:21 | RAD ---
XR CHEST 1V 01/09/2021 5:01 AM INDICATION: Intubated COMPARISON: 01/08/2021 TECHNIQUE: Portable frontal view of the chest is provided. FINDINGS: The cardiomediastinal silhouette is similar in appearance. Endotracheal tube and nasogastric tube are in similar position given differences in positioning. Patient is rotated. Small bilateral pleural effusions with adjacent compressive atelectasis versus infiltrate. Moderate p ulmonary vascular congestion. No pneumothorax. Findings appear similar to prior examination. No suspicious osseous abnormality. IMPRESSION: Aeration of the lungs appears similar to the prior examination. Support lines and tubes are in simila r position. Electronically signed by: Lakia Rain MD (01/09/2021 5:19 AM) AN[facility]
--- NOTE | 2021-01-09 05:41 | NUR ---
This RN has reviewed and approves of SN charting.
[2021-01-09] MEDS: IV RINGERS,LACTATED 1000ML 1,000 ML IV SCH ×2 (06:15→16:15)
[2021-01-09] MEDS: LEVOTHYROXINE 150 MCG TABLET PO SCH (06:15)
[2021-01-09] MEDS: INSULIN LISPRO 300 UNITS/3 ML VIAL. SQ SCH ×4 (07:30→18:00)
[2021-01-09] MEDS: ONDANSETRON ODT 4 MG TAB.RAPDIS. PO SCH ×3 (07:30→16:30)
[2021-01-09 08:00] LABS: BASE EXCESS ABG 5 mmol/L (-3-3); HCO3 ABG 25 mmol/L (21-28); PCO2 ABG 25 mmHg (35-46); PO2 ABG 69 mmHg (65-108); SAT O2 ABG 94 % (92-99)
[2021-01-09] MEDS: ASPIRIN 325 MG TABLET PO SCH (08:12)
[2021-01-09] MEDS: PARoxetine 20 MG TABLET PO SCH (08:12)
[2021-01-09] MEDS: ALLOPURINOL 100 MG TABLET. PO SCH (08:13)
[2021-01-09] MEDS: HEPARIN for SUB-Q USE 5,000 UNIT/ML VIAL. SQ SCH ×2 (08:13→22:01)
[2021-01-09] MEDS: LACTOBACILLUS RHAMNOSUS GG 1 CAPSULE. PO SCH ×2 (08:13→21:00)
[2021-01-09] MEDS: METOPROLOL SUCC 24HR ER 50 MG TAB.ER.24H. PO SCH (08:13)
[2021-01-09] MEDS: CHLORHEXIDINE 0.12% 15 ML MOUTHWASH. MM SCH ×2 (08:14→21:30)
--- NOTE | 2021-01-09 08:51 | PDOC ---
Infectious Disease Note Subjective: Subjective Patient intubated due to worsening respiratory failure,, asystole, status post code Is sedated Discussed with nursing staff Vital Signs: Vital Signs Vital Signs Date Time Temp Pulse Resp B/P (MAP) Pulse Ox O2 Delivery O2 Flow Rate FiO2 01/09/21 08:00 Mechanical Ventilator 01/09/21 08:00 84 20 110/61 99 01/09/21 04:00 99.9 99.9 01/08/21 15:00 2.0 Physical Exam: PHYSICAL EXAM GENERAL: Intubated\sedated HEENT: Normocephalic, atraumatic. ETT present LUNGS: Decreased breath sounds at the bases, some crackles. CARDIOVASCULAR: S1, S2. No murmurs. ABDOMEN: Soft, nontender, nondistended, obese. Bowel sounds present. EXTREMITIES: Left BKA prosthesis in place, taken down. Stump looks healthy, just dry skin. Right lower extremity, trace edema, mild erythema which is at baseline, no warmth, no weeping lesions, much improved than last admission., Dry anterior acevedo wound not infected DERMATOLOGIC: Warm, dry. No generalized rash except for above. NEUROLOGIC: Intubated GENITOURINARY: Cifuentes in place, Medications: Inpatient Meds: Medications reviewed. Labs: Lab Laboratory Tests Test 01/08/21 11:40 01/08/21 13:15 01/08/21 16:45 01/08/21 20:00 Glucose (Fingerstick) 170 mg/dL (70-99) 190 mg/dL (70-99) O2 Saturation 90 % (92-99) Arterial Blood pH 7.29 (7.35-7.45) Arterial Blood pCO2 at Patient Temp 51 mmHg (35-46) Arterial Blood pO2 at Patient Temp 65 mmHg (65-108) Arterial Blood HCO3 24 mmol/L (21-28) Arterial Blood Base Excess -3 mmol/L (-3-3) FiO2 2l nc White Blood Count 15.2 x10^3/uL (4.0-11.0) Red Blood Count 4.14 x10^6/uL (3.50-5.40) Hemoglobin 11.1 g/dL (12.0-15.5) Hematocrit 35.5 % (36.0-47.0) Mean Corpuscular Volume 86 fL (79-100) Mean Corpuscular Hemoglobin 27 pg (25-35) Mean Corpuscular Hemoglobin Concent 31 g/dL (31-37) Red Cell Distribution Width 14.3 % (11.5-14.5) Platelet Count 241 x10^3/uL (140-400) Neutrophils (%) (Auto) 88 % (31-73) Lymphocytes (%) (Auto) 8 % (24-48) Monocytes (%) (Auto) 4 % (0-9) Eosinophils (%) (Auto) 0 % (0-3) Basophils (%) (Auto) 0 % (0-3) Neutrophils # (Auto) 13.3 x10^3/uL (1.8-7.7) Lymphocytes # (Auto) 1.2 x10^3/uL (1.0-4.8) Monocytes # (Auto) 0.6 x10^3/uL (0.0-1.1) Eosinophils # (Auto) 0.0 x10^3/uL (0.0-0.7) Basophils # (Auto) 0.0 x10^3/uL (0.0-0.2) Sodium Level 140 mmol/L (136-145) Potassium Level 4.8 mmol/L (3.5-5.1) Chloride Level 100 mmol/L (98-107) Carbon Dioxide Level 25 mmol/L (21-32) Anion Gap 15 (6-14) Blood Urea Nitrogen 75 mg/dL (7-20) Creatinine 3.7 mg/dL (0.6-1.0) Estimated GFR (Cockcroft-Gault) 11.8 Glucose Level 186 mg/dL (70-99) Calcium Level 8.3 mg/dL (8.5-10.1) Magnesium Level 2.5 mg/dL (1.8-2.4) Test 01/09/21 03:30 01/09/21 07:45 White Blood Count 13.5 x10^3/uL (4.0-11.0) Red Blood Count 3.89 x10^6/uL (3.50-5.40) Hemoglobin 10.3 g/dL (12.0-15.5) Hematocrit 32.3 % (36.0-47.0) Mean Corpuscular Volume 83 fL (79-100) Mean Corpuscular Hemoglobin 27 pg (25-35) Mean Corpuscular Hemoglobin Concent 32 g/dL (31-37) Red Cell Distribution Width 14.2 % (11.5-14.5) Platelet Count 225 x10^3/uL (140-400) Neutrophils (%) (Auto) 88 % (31-73) Lymphocytes (%) (Auto) 5 % (24-48) Monocytes (%) (Auto) 7 % (0-9) Eosinophils (%) (Auto) 0 % (0-3) Basophils (%) (Auto) 0 % (0-3) Neutrophils # (Auto) 11.8 x10^3/uL (1.8-7.7) Lymphocytes # (Auto) 0.7 x10^3/uL (1.0-4.8) Monocytes # (Auto) 0.9 x10^3/uL (0.0-1.1) Eosinophils # (Auto) 0.0 x10^3/uL (0.0-0.7) Basophils # (Auto) 0.0 x10^3/uL (0.0-0.2) Sodium Level 140 mmol/L (136-145) Potassium Level 4.5 mmol/L (3.5-5.1) Chloride Level 101 mmol/L (98-107) Carbon Dioxide Level 27 mmol/L (21-32) Anion Gap 12 (6-14) Blood Urea Nitrogen 80 mg/dL (7-20) Creatinine 3.6 mg/dL (0.6-1.0) Estimated GFR (Cockcroft-Gault) 12.2 Glucose Level 215 mg/dL (70-99) Calcium Level 7.8 mg/dL (8.5-10.1) O2 Saturation 94 % (92-99) Arterial Blood pH 7.62 (7.35-7.45) Arterial Blood pCO2 at Patient Temp 25 mmHg (35-46) Arterial Blood pO2 at Patient Temp 69 mmHg (65-108) Arterial Blood HCO3 25 mmol/L (21-28) Arterial Blood Base Excess 5 mmol/L (-3-3) FiO2 50/vent Objective: Assessment: Acute hypoxic respiratory failure status post intubation Asystole status post CODE BLUE January 08, 2021 1. Leukocytosis, 2. E. coli UTI resistant to Augmentin 3. History of extended spectrum beta-lactamase Escherichia coli urinary tract infection in the past. 4. 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 5. Congestive heart failure. 6. Chest pain. 7. Chronic kidney disease. 8. Diabetes mellitus 2. 9. History of left [id number] amputation. Plan: Plan of Care 1. Change ceftriaxone to Zosyn for now 2. Monitor labs and cultures. 3. Maintain aspiration precaution. 4. Continue supportive care. Discussed with LADRAIUS MARTINEZ MD Jan 09, 2021 08:51
--- NOTE | 2021-01-09 09:13 | PDOC ---
DATE OF SERVICE DATE: 01/09/21 TIME: 09:13 SUBJECTIVE ROS Coded last night -became unresponsive /Asystole Intubated and sedated now OBJECTIVE Vital Signs Vital Signs Date Time Temp Pulse Resp B/P (MAP) Pulse Ox O2 Delivery O2 Flow Rate FiO2 01/09/21 08:00 Mechanical Ventilator 01/09/21 08:00 84 20 110/61 99 01/09/21 04:00 99.9 99.9 01/08/21 15:00 2.0 I & 0 Intake and Output 01/09/21 07:00 Intake Total 1354 ml Output Total 224 ml Balance 1130 ml Intake Oral 180 ml IV Total 1024 ml Other 150 ml Output Urine Total 224 ml # Bowel Movements 1 PHYSICAL EXAM Physical Exam GENERAL: Intubated HEENT: Intubated NECK: Supple. LUNGS: Decreased breath sounds at the bases, CV: S1, S2. No murmurs. ABD: Soft, nontender, , obese. EXT: Left BKA prosthesis in place Right lower extremity, trace edema, DERM: Warm, dry. No generalized rash NEUROLOGIC: Intubated Cifuentes in place, DIAGNOSIS/ASSESSMENT Assessment & Plan NILDA - Suspect ATN , suspect Cardiorenal/ ATN/ Hypotensive, now decreased urine output . 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 Renal US 04/28 Mildly enlarged kidneys bilaterally . Proteinuria- 24 Hr Ur Pr < 500 mg . Patient didn't follow up with us as OP Acute on chronic systolic CHF; echo 10/26 with preserved LV systolic function.Recent Echo with LVEF 25% with pattern suggestive Takotsubo's CMP. Renal Calculus - chronic , seen on recent CT as well No hydronephrosis Pyuria. 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 Obesity. Anemia: Fe deficiency , SUTTON done in past - SPEP abnormal IgG and IgA, IgM normal, No M spike, K and L elevated , Ratio normal Hx of Coronary artery disease, nonobstructive. 60% LAD 05/26 per cardiac cath Hypertension currently Hypotensive Obstructive sleep apnea. Treated with CPAP. COMMENT/RELEVANT DATA Meds Current Medications Medications (Trade) Dose Ordered Sig/Meagan Start Time Stop Time Status Last Admin Dose Admin Acetaminophen (Tylenol) 650 mg PRN Q6HRS PRN 01/05/21 12:15 01/07/21 08:45 650 MG Acetaminophen/ Hydrocodone Bitart (Lortab 5/325) 1 tab PRN Q4HRS PRN 01/08/21 13:45 UNV Allopurinol (Zyloprim) 100 mg DAILY 01/06/21 09:00 01/09/21 08:13 100 MG Amlodipine Besylate (Norvasc) 5 mg DAILY 01/06/21 09:00 01/08/21 08:18 5 MG Aspirin (Raulito Aspirin) 325 mg DAILY 01/05/21 12:00 01/09/21 08:12 325 MG Atorvastatin Calcium (Lipitor) 40 mg QHS 01/05/21 21:00 01/08/21 21:10 40 MG Atropine Sulfate (ATROPINE 0.5mg SYRINGE) 0.5 mg PRN Q5MIN PRN 01/08/21 19:00 Bisacodyl (Dulcolax Supp) 10 mg PRN DAILY PRN 01/08/21 02:15 01/08/21 02:20 10 MG Ceftriaxone Sodium (Rocephin) 1 gm Q24H 01/08/21 11:00 01/08/21 11:06 1 GM Chlorhexidine Gluconate (Peridex) 15 ml BID 01/08/21 21:00 01/09/21 08:14 15 ML Dexmedetomidine HCl 400 mcg/ Sodium Chloride 100 ml @ 5.8 mls/hr CONT PRN 01/08/21 19:00 Dobutamine HCl/ Dextrose 250 ml @ 17.43 mls/ hr CONT PRN 01/08/21 10:00 01/08/21 10:20 17.43 MLS/HR Famotidine (Pepcid) 20 mg QHS 01/05/21 21:00 01/08/21 21:10 20 MG Fentanyl Citrate (Fentanyl 2ml Vial) 100 mcg STK-MED ONCE 01/08/21 20:42 01/08/21 20:42 DC Furosemide (Lasix) 40 mg DAILY 01/08/21 09:00 01/08/21 12:26 DC 01/08/21 08:16 40 MG Glycerin/ Hypromellose/ Polyethylene (Artificial Tears) 1 drop PRN Q1HR PRN 01/08/21 19:00 Heparin Sodium (Porcine) (Heparin Sodium) 5,000 unit Q12HR 01/08/21 13:00 01/09/21 08:13 5,000 UNIT Heparin Sodium/ Dextrose 250 ml @ 13.32 mls/ hr CONT PRN 01/05/21 19:00 01/07/21 14:35 DC 01/06/21 17:00 13.32 MLS/HR Insulin Glargine (Lantus Syringe) 12 unit QHS 01/05/21 21:00 01/08/21 21:14 12 UNIT Insulin Human Lispro (HumaLOG) 0-8 UNITS TIDWMEALS 01/05/21 17:00 01/05/21 23:41 4 UNITS Lactobacillus Rhamnosus (Culturelle) 1 cap BID 01/06/21 21:00 01/09/21 08:13 1 CAP Levothyroxine Sodium (Synthroid) 150 mcg DAILY06 01/06/21 06:00 01/09/21 06:15 150 MCG Metolazone (Zaroxolyn) 2.5 mg MoWeFr@0900 01/06/21 09:00 01/08/21 12:26 DC 01/08/21 08:17 2.5 MG Metoprolol Succinate (Toprol Xl) 50 mg DAILY 01/06/21 09:00 01/08/21 08:17 50 MG Midazolam HCl 100 ml @ 1 mls/hr CONT PRN 01/08/21 19:00 01/08/21 19:20 1 MLS/HR Nitroglycerin (Nitrostat) 0.4 mg PRN Q5MIN PRN 01/05/21 09:30 01/08/21 03:16 0.4 MG Norepinephrine Bitartrate 8 mg/ Dextrose 258 ml @ 22.485 mls/ hr CONT PRN 01/08/21 19:00 UNV Ondansetron HCl (Zofran Odt) 4 mg TIDAC 01/05/21 12:00 01/08/21 08:16 4 MG Paroxetine HCl (Paxil) 20 mg DAILY 01/06/21 09:00 01/09/21 08:12 20 MG Perflutren Protein Type A Microsphe (Optison) 0.66 mg STK-MED ONCE 01/06/21 08:00 01/07/21 09:00 DC Piperacillin Sod/ Tazobactam Sod 2.25 gm/Sodium Chloride 50 ml @ 100 mls/hr Q6HRS 01/06/21 12:00 01/08/21 10:40 DC 01/08/21 05:17 100 MLS/HR Piperacillin Sod/ Tazobactam Sod 3.375 gm/Sodium Chloride 50 ml @ 100 mls/hr Q6HRS 01/05/21 12:00 01/06/21 10:42 DC 01/06/21 06:08 100 MLS/HR Potassium Chloride (Klor-Con) 20 meq 1X ONCE 01/07/21 10:45 01/07/21 10:46 DC 01/07/21 11:07 20 MEQ Propofol 100 ml @ 0.1 mls/hr CONT PRN 01/08/21 19:00 Ringer's Solution 1,000 ml @ 100 mls/hr Q10H 01/08/21 20:15 01/08/21 21:08 100 MLS/HR Senna/Docusate Sodium (Senna Plus) 2 tab QHS 01/05/21 21:00 01/07/21 20:11 2 TAB Sodium Chloride 500 ml @ 500 mls/hr 1X PRN PRN 01/08/21 19:00 Lab Laboratory Tests Test 01/08/21 11:40 01/08/21 13:15 01/08/21 16:45 01/08/21 20:00 Glucose (Fingerstick) 170 mg/dL (70-99) 190 mg/dL (70-99) O2 Saturation 90 % (92-99) Arterial Blood pH 7.29 (7.35-7.45) Arterial Blood pCO2 at Patient Temp 51 mmHg (35-46) Arterial Blood pO2 at Patient Temp 65 mmHg (65-108) Arterial Blood HCO3 24 mmol/L (21-28) Arterial Blood Base Excess -3 mmol/L (-3-3) FiO2 2l nc White Blood Count 15.2 x10^3/uL (4.0-11.0) Red Blood Count 4.14 x10^6/uL (3.50-5.40) Hemoglobin 11.1 g/dL (12.0-15.5) Hematocrit 35.5 % (36.0-47.0) Mean Corpuscular Volume 86 fL (79-100) Mean Corpuscular Hemoglobin 27 pg (25-35) Mean Corpuscular Hemoglobin Concent 31 g/dL (31-37) Red Cell Distribution Width 14.3 % (11.5-14.5) Platelet Count 241 x10^3/uL (140-400) Neutrophils (%) (Auto) 88 % (31-73) Lymphocytes (%) (Auto) 8 % (24-48) Monocytes (%) (Auto) 4 % (0-9) Eosinophils (%) (Auto) 0 % (0-3) Basophils (%) (Auto) 0 % (0-3) Neutrophils # (Auto) 13.3 x10^3/uL (1.8-7.7) Lymphocytes # (Auto) 1.2 x10^3/uL (1.0-4.8) Monocytes # (Auto) 0.6 x10^3/uL (0.0-1.1) Eosinophils # (Auto) 0.0 x10^3/uL (0.0-0.7) Basophils # (Auto) 0.0 x10^3/uL (0.0-0.2) Sodium Level 140 mmol/L (136-145) Potassium Level 4.8 mmol/L (3.5-5.1) Chloride Level 100 mmol/L (98-107) Carbon Dioxide Level 25 mmol/L (21-32) Anion Gap 15 (6-14) Blood Urea Nitrogen 75 mg/dL (7-20) Creatinine 3.7 mg/dL (0.6-1.0) Estimated GFR (Cockcroft-Gault) 11.8 Glucose Level 186 mg/dL (70-99) Calcium Level 8.3 mg/dL (8.5-10.1) Magnesium Level 2.5 mg/dL (1.8-2.4) Test 01/09/21 03:30 01/09/21 07:45 White Blood Count 13.5 x10^3/uL (4.0-11.0) Red Blood Count 3.89 x10^6/uL (3.50-5.40) Hemoglobin 10.3 g/dL (12.0-15.5) Hematocrit 32.3 % (36.0-47.0) Mean Corpuscular Volume 83 fL (79-100) Mean Corpuscular Hemoglobin 27 pg (25-35) Mean Corpuscular Hemoglobin Concent 32 g/dL (31-37) Red Cell Distribution Width 14.2 % (11.5-14.5) Platelet Count 225 x10^3/uL (140-400) Neutrophils (%) (Auto) 88 % (31-73) Lymphocytes (%) (Auto) 5 % (24-48) Monocytes (%) (Auto) 7 % (0-9) Eosinophils (%) (Auto) 0 % (0-3) Basophils (%) (Auto) 0 % (0-3) Neutrophils # (Auto) 11.8 x10^3/uL (1.8-7.7) Lymphocytes # (Auto) 0.7 x10^3/uL (1.0-4.8) Monocytes # (Auto) 0.9 x10^3/uL (0.0-1.1) Eosinophils # (Auto) 0.0 x10^3/uL (0.0-0.7) Basophils # (Auto) 0.0 x10^3/uL (0.0-0.2) Sodium Level 140 mmol/L (136-145) Potassium Level 4.5 mmol/L (3.5-5.1) Chloride Level 101 mmol/L (98-107) Carbon Dioxide Level 27 mmol/L (21-32) Anion Gap 12 (6-14) Blood Urea Nitrogen 80 mg/dL (7-20) Creatinine 3.6 mg/dL (0.6-1.0) Estimated GFR (Cockcroft-Gault) 12.2 Glucose Level 215 mg/dL (70-99) Calcium Level 7.8 mg/dL (8.5-10.1) O2 Saturation 94 % (92-99) Arterial Blood pH 7.62 (7.35-7.45) Arterial Blood pCO2 at Patient Temp 25 mmHg (35-46) Arterial Blood pO2 at Patient Temp 69 mmHg (65-108) Arterial Blood HCO3 25 mmol/L (21-28) Arterial Blood Base Excess 5 mmol/L (-3-3) FiO2 50/vent Results All relevant outside records, renal labs, imaging studies, telemetry/EKG's were reviewed. Justicifation of Admission Dx: Justifications for Admission: Justification of Admission Dx: N/A ISRAEL WHEAT MD Jan 09, 2021 09:13
--- NOTE | 2021-01-09 09:14 | PDOC ---
PULMONARY PROGRESS NOTES DATE: 01/09/21 TIME: 09:13 Subjective Events of last evening noted, I was called with patient status post CODE BLUE intubated Currently on assist control ventilation On pressors Vitals Vital Signs Date Time Temp Pulse Resp B/P (MAP) Pulse Ox O2 Delivery O2 Flow Rate FiO2 01/09/21 08:00 Mechanical Ventilator 01/09/21 08:00 84 20 110/61 99 01/09/21 04:00 99.9 99.9 01/08/21 15:00 2.0 Lungs: Crackles Cardiovascular: S1, S2 Abdomen: Soft, Non-tender, Other Extremities: Other (Status post left BKA) Skin: Warm Labs Laboratory Tests Test 01/07/21 11:12 01/07/21 11:20 01/07/21 16:45 01/07/21 21:06 Glucose (Fingerstick) 151 mg/dL (70-99) 188 mg/dL (70-99) 147 mg/dL (70-99) Heparin Anti-Xa Act, Unfractionated 0.50 IU/mL (0.30-0.70) Test 01/08/21 03:50 01/08/21 07:42 01/08/21 11:40 01/08/21 13:15 White Blood Count 15.2 x10^3/uL (4.0-11.0) Red Blood Count 4.05 x10^6/uL (3.50-5.40) Hemoglobin 10.9 g/dL (12.0-15.5) Hematocrit 34.6 % (36.0-47.0) Mean Corpuscular Volume 86 fL (79-100) Mean Corpuscular Hemoglobin 27 pg (25-35) Mean Corpuscular Hemoglobin Concent 31 g/dL (31-37) Red Cell Distribution Width 14.3 % (11.5-14.5) Platelet Count 267 x10^3/uL (140-400) Sodium Level 138 mmol/L (136-145) Potassium Level 4.1 mmol/L (3.5-5.1) Chloride Level 98 mmol/L (98-107) Carbon Dioxide Level 32 mmol/L (21-32) Anion Gap 8 (6-14) Blood Urea Nitrogen 64 mg/dL (7-20) Creatinine 3.1 mg/dL (0.6-1.0) Estimated GFR (Cockcroft-Gault) 14.5 Glucose Level 197 mg/dL (70-99) Calcium Level 8.4 mg/dL (8.5-10.1) Magnesium Level 2.2 mg/dL (1.8-2.4) Troponin I High Sensitivity 377 ng/L (4-50) VS-Iiv-V-Type Natriuretic Peptide 80942 pg/mL (0-449) Glucose (Fingerstick) 168 mg/dL (70-99) 170 mg/dL (70-99) O2 Saturation 90 % (92-99) Arterial Blood pH 7.29 (7.35-7.45) Arterial Blood pCO2 at Patient Temp 51 mmHg (35-46) Arterial Blood pO2 at Patient Temp 65 mmHg (65-108) Arterial Blood HCO3 24 mmol/L (21-28) Arterial Blood Base Excess -3 mmol/L (-3-3) FiO2 2l nc Test 01/08/21 16:45 01/08/21 20:00 01/09/21 03:30 01/09/21 07:45 Glucose (Fingerstick) 190 mg/dL (70-99) White Blood Count 15.2 x10^3/uL (4.0-11.0) 13.5 x10^3/uL (4.0-11.0) Red Blood Count 4.14 x10^6/uL (3.50-5.40) 3.89 x10^6/uL (3.50-5.40) Hemoglobin 11.1 g/dL (12.0-15.5) 10.3 g/dL (12.0-15.5) Hematocrit 35.5 % (36.0-47.0) 32.3 % (36.0-47.0) Mean Corpuscular Volume 86 fL (79-100) 83 fL (79-100) Mean Corpuscular Hemoglobin 27 pg (25-35) 27 pg (25-35) Mean Corpuscular Hemoglobin Concent 31 g/dL (31-37) 32 g/dL (31-37) Red Cell Distribution Width 14.3 % (11.5-14.5) 14.2 % (11.5-14.5) Platelet Count 241 x10^3/uL (140-400) 225 x10^3/uL (140-400) Neutrophils (%) (Auto) 88 % (31-73) 88 % (31-73) Lymphocytes (%) (Auto) 8 % (24-48) 5 % (24-48) Monocytes (%) (Auto) 4 % (0-9) 7 % (0-9) Eosinophils (%) (Auto) 0 % (0-3) 0 % (0-3) Basophils (%) (Auto) 0 % (0-3) 0 % (0-3) Neutrophils # (Auto) 13.3 x10^3/uL (1.8-7.7) 11.8 x10^3/uL (1.8-7.7) Lymphocytes # (Auto) 1.2 x10^3/uL (1.0-4.8) 0.7 x10^3/uL (1.0-4.8) Monocytes # (Auto) 0.6 x10^3/uL (0.0-1.1) 0.9 x10^3/uL (0.0-1.1) Eosinophils # (Auto) 0.0 x10^3/uL (0.0-0.7) 0.0 x10^3/uL (0.0-0.7) Basophils # (Auto) 0.0 x10^3/uL (0.0-0.2) 0.0 x10^3/uL (0.0-0.2) Sodium Level 140 mmol/L (136-145) 140 mmol/L (136-145) Potassium Level 4.8 mmol/L (3.5-5.1) 4.5 mmol/L (3.5-5.1) Chloride Level 100 mmol/L (98-107) 101 mmol/L (98-107) Carbon Dioxide Level 25 mmol/L (21-32) 27 mmol/L (21-32) Anion Gap 15 (6-14) 12 (6-14) Blood Urea Nitrogen 75 mg/dL (7-20) 80 mg/dL (7-20) Creatinine 3.7 mg/dL (0.6-1.0) 3.6 mg/dL (0.6-1.0) Estimated GFR (Cockcroft-Gault) 11.8 12.2 Glucose Level 186 mg/dL (70-99) 215 mg/dL (70-99) Calcium Level 8.3 mg/dL (8.5-10.1) 7.8 mg/dL (8.5-10.1) Magnesium Level 2.5 mg/dL (1.8-2.4) O2 Saturation 94 % (92-99) Arterial Blood pH 7.62 (7.35-7.45) Arterial Blood pCO2 at Patient Temp 25 mmHg (35-46) Arterial Blood pO2 at Patient Temp 69 mmHg (65-108) Arterial Blood HCO3 25 mmol/L (21-28) Arterial Blood Base Excess 5 mmol/L (-3-3) FiO2 50/vent Laboratory Tests Test 01/08/21 11:40 01/08/21 13:15 01/08/21 16:45 01/08/21 20:00 Glucose (Fingerstick) 170 mg/dL (70-99) 190 mg/dL (70-99) O2 Saturation 90 % (92-99) Arterial Blood pH 7.29 (7.35-7.45) Arterial Blood pCO2 at Patient Temp 51 mmHg (35-46) Arterial Blood pO2 at Patient Temp 65 mmHg (65-108) Arterial Blood HCO3 24 mmol/L (21-28) Arterial Blood Base Excess -3 mmol/L (-3-3) FiO2 2l nc White Blood Count 15.2 x10^3/uL (4.0-11.0) Red Blood Count 4.14 x10^6/uL (3.50-5.40) Hemoglobin 11.1 g/dL (12.0-15.5) Hematocrit 35.5 % (36.0-47.0) Mean Corpuscular Volume 86 fL (79-100) Mean Corpuscular Hemoglobin 27 pg (25-35) Mean Corpuscular Hemoglobin Concent 31 g/dL (31-37) Red Cell Distribution Width 14.3 % (11.5-14.5) Platelet Count 241 x10^3/uL (140-400) Neutrophils (%) (Auto) 88 % (31-73) Lymphocytes (%) (Auto) 8 % (24-48) Monocytes (%) (Auto) 4 % (0-9) Eosinophils (%) (Auto) 0 % (0-3) Basophils (%) (Auto) 0 % (0-3) Neutrophils # (Auto) 13.3 x10^3/uL (1.8-7.7) Lymphocytes # (Auto) 1.2 x10^3/uL (1.0-4.8) Monocytes # (Auto) 0.6 x10^3/uL (0.0-1.1) Eosinophils # (Auto) 0.0 x10^3/uL (0.0-0.7) Basophils # (Auto) 0.0 x10^3/uL (0.0-0.2) Sodium Level 140 mmol/L (136-145) Potassium Level 4.8 mmol/L (3.5-5.1) Chloride Level 100 mmol/L (98-107) Carbon Dioxide Level 25 mmol/L (21-32) Anion Gap 15 (6-14) Blood Urea Nitrogen 75 mg/dL (7-20) Creatinine 3.7 mg/dL (0.6-1.0) Estimated GFR (Cockcroft-Gault) 11.8 Glucose Level 186 mg/dL (70-99) Calcium Level 8.3 mg/dL (8.5-10.1) Magnesium Level 2.5 mg/dL (1.8-2.4) Test 01/09/21 03:30 01/09/21 07:45 White Blood Count 13.5 x10^3/uL (4.0-11.0) Red Blood Count 3.89 x10^6/uL (3.50-5.40) Hemoglobin 10.3 g/dL (12.0-15.5) Hematocrit 32.3 % (36.0-47.0) Mean Corpuscular Volume 83 fL (79-100) Mean Corpuscular Hemoglobin 27 pg (25-35) Mean Corpuscular Hemoglobin Concent 32 g/dL (31-37) Red Cell Distribution Width 14.2 % (11.5-14.5) Platelet Count 225 x10^3/uL (140-400) Neutrophils (%) (Auto) 88 % (31-73) Lymphocytes (%) (Auto) 5 % (24-48) Monocytes (%) (Auto) 7 % (0-9) Eosinophils (%) (Auto) 0 % (0-3) Basophils (%) (Auto) 0 % (0-3) Neutrophils # (Auto) 11.8 x10^3/uL (1.8-7.7) Lymphocytes # (Auto) 0.7 x10^3/uL (1.0-4.8) Monocytes # (Auto) 0.9 x10^3/uL (0.0-1.1) Eosinophils # (Auto) 0.0 x10^3/uL (0.0-0.7) Basophils # (Auto) 0.0 x10^3/uL (0.0-0.2) Sodium Level 140 mmol/L (136-145) Potassium Level 4.5 mmol/L (3.5-5.1) Chloride Level 101 mmol/L (98-107) Carbon Dioxide Level 27 mmol/L (21-32) Anion Gap 12 (6-14) Blood Urea Nitrogen 80 mg/dL (7-20) Creatinine 3.6 mg/dL (0.6-1.0) Estimated GFR (Cockcroft-Gault) 12.2 Glucose Level 215 mg/dL (70-99) Calcium Level 7.8 mg/dL (8.5-10.1) O2 Saturation 94 % (92-99) Arterial Blood pH 7.62 (7.35-7.45) Arterial Blood pCO2 at Patient Temp 25 mmHg (35-46) Arterial Blood pO2 at Patient Temp 69 mmHg (65-108) Arterial Blood HCO3 25 mmol/L (21-28) Arterial Blood Base Excess 5 mmol/L (-3-3) FiO2 50/vent Medications Active Scripts Medications Dose Route/Sig Max Daily Dose Days Date Category Dose Instructions Cephalexin 500 Mg Tablet 1 Tab PO TID 7 07/05/20 Rx Thera-M Tablet (Multivits,Ca,Minerals/Iron/Fa) 1 Each Tablet 1 Tab PO DAILY 07/05/20 Rx Vitamin C (Ascorbic Acid) 500 Mg Tablet 500 Mg PO DAILY 07/05/20 Rx Lantus (Insulin Glargine,Hum.rec.anlog) 100 Unit/1 Ml Vial 12 Unit SQ QHS 07/05/20 Rx Metolazone 2.5 Mg Tablet 2.5 Mg PO QMWF 07/05/20 Rx Klor-Con M20 (Potassium Chloride) 20 Meq Tab.er.prt 20 Meq PO BID 07/05/20 Rx Toprol XL (Metoprolol Succinate) 50 Mg Tab.er.24h 50 Mg PO DAILY 07/05/20 Rx Furosemide 40 Mg Tablet 40 Mg PO BID 06/12/20 Rx Amlodipine Besylate 5 Mg Tablet 5 Mg PO DAILY 06/12/20 Rx Atorvastatin Calcium 40 Mg Tablet 40 Mg PO QHS 06/12/20 Rx Admelog (Insulin Lispro) 100 Unit/1 Ml Vial 6 Units SQ TIDAC 06/04/20 Rx hold if blood sugar less than 90 before a meal Nyamyc (Nystatin) 15 Gm Powder 1 Renee TP BID 05/12/20 Rx Stool Soft-Stimulant Lax Tab (Sennosides/Docusate Sodium) 1 Each Tablet 2 Tab PO DAILY 05/12/20 Rx Feosol (Ferrous Sulfate) 325 Mg Tablet 325 Mg PO QODAY 05/12/20 Rx Aspirin 81 Mg Tab.chew 81 Mg PO HS 05/03/20 Reported Synthroid (Levothyroxine Sodium) 150 Mcg Tablet 150 Mcg PO DAILY06 05/21/19 Rx Allopurinol 100 Mg Tablet 100 Mg PO DAILY 05/21/19 Rx Paroxetine Hcl 20 Mg Tablet 20 Mg PO DAILY 05/21/19 Rx Tylenol (Acetaminophen) 325 Mg Tablet 650 Mg PO PRN Q4HRS 05/19/13 Reported Impression . IMPRESSION: 1. Acute on chronic hypoxemic hypercapnic respiratory failure. 2. Acute on chronic diastolic heart failure. 3. Peripheral arterial disease, status post left knee amputation. 4. Obstructive sleep apnea. 5. Chest pain per Cardiology./Cardiomyopathy ejection fraction 25% 6. Leukocytosis related to urinary tract infection, Escherichia coli. Infectious Disease has been following. 7. Hypothyroidism. 8. Type 2 diabetes. 9. Paroxysmal atrial fibrillation. 10. Status post CODE BLUE 11. Acute renal failure Plan . Updated 01/09 Case discussed with son at the bedside who is the DPOA, I informed him that patient had multiorgan failure, I recommend withdrawing care and allowing natural Patient has advanced directive, did not want to be placed on mechanical support She was on hospice prior to this admission We will continue current support, awaiting family decision for possible comfort care Case discussed with RN and RT Case discussed with Dr. Lara Total cumulative critical care time of 30 minutes with no overlap PLAN: 1. The patient has done well while in the room off the BiPAP. I recommend continue to receive CPAP/BiPAP at bedtime. 2. Continue oxygen at 2 liters per nasal cannula throughout the day. Do not increase FiO2 delivery. 3. Continue inotropic support with dobutamine per Cardiology. 4. Antibiotics per ID. I do appreciate the privilege in sharing in the patient's care. RYNE LIN MD Jan 09, 2021 09:14
--- NOTE | 2021-01-09 09:52 | NUR ---
SS following up with discharge planning. SS reviewed pt chart and discussed with pt RN. Pt was transferred to ICU and was intubated. Pt is currently on the vent at 100%. COVID19 negative. Pt on Fentanyl and Versed. Pt on IV Rocephin. Not stable. SS spoke with pt's son, Rajan, this morning. Pt's son verified that pt was still active with [facility] prior to being admitted to the hospital. Goals of care discussed. Pt's son discussing with family. Pt's RN notified. SS will continue to follow for discharge planning.
[2021-01-09] MEDS: MIDAZOLAM 100mg/100ml NS BAG 100 ML IV PRN (10:12)
[2021-01-09] MEDS: cefTRIAXone IV Push 1 GM VIAL. IVP SCH (10:14)
[2021-01-09] MEDS: PIPERACILLIN/TAZOBACTAM 2.25 GM in IV NORMAL SALINE 50ML 50 ML IV SCH ×2 (11:05→17:48)
[2021-01-09] MEDS: NOREPINEPHRINE VIAL 8 MG in IV DEXTROSE 5% 250 ML IV PRN (11:05)
--- NOTE | 2021-01-09 11:40 | PDOC ---
FARHANA HOFFMAN AUTO TECH 01/09/21 1140: CARDIO Progress Notes Date and Time Date of Service 01/09/21 Time of Evaluation 1130 Subjective Subjective: Other (intubated ) Vitals Vitals Vital Signs Date Time Temp Pulse Resp B/P (MAP) Pulse Ox O2 Delivery O2 Flow Rate FiO2 01/09/21 10:03 99 Ventilator 01/09/21 10:00 79 20 94/45 01/09/21 04:00 99.9 99.9 01/08/21 15:00 2.0 Weight Weight [ ] Input and Output Intake and Output Intake and Output 01/09/21 07:00 Intake Total 1354 ml Output Total 224 ml Balance 1130 ml Intake Oral 180 ml IV Total 1024 ml Other 150 ml Output Urine Total 224 ml # Bowel Movements 1 Laboratory Labs Laboratory Tests Test 01/08/21 11:40 01/08/21 13:15 01/08/21 16:45 01/08/21 20:00 Glucose (Fingerstick) 170 mg/dL (70-99) 190 mg/dL (70-99) O2 Saturation 90 % (92-99) Arterial Blood pH 7.29 (7.35-7.45) Arterial Blood pCO2 at Patient Temp 51 mmHg (35-46) Arterial Blood pO2 at Patient Temp 65 mmHg (65-108) Arterial Blood HCO3 24 mmol/L (21-28) Arterial Blood Base Excess -3 mmol/L (-3-3) FiO2 2l nc White Blood Count 15.2 x10^3/uL (4.0-11.0) Red Blood Count 4.14 x10^6/uL (3.50-5.40) Hemoglobin 11.1 g/dL (12.0-15.5) Hematocrit 35.5 % (36.0-47.0) Mean Corpuscular Volume 86 fL (79-100) Mean Corpuscular Hemoglobin 27 pg (25-35) Mean Corpuscular Hemoglobin Concent 31 g/dL (31-37) Red Cell Distribution Width 14.3 % (11.5-14.5) Platelet Count 241 x10^3/uL (140-400) Neutrophils (%) (Auto) 88 % (31-73) Lymphocytes (%) (Auto) 8 % (24-48) Monocytes (%) (Auto) 4 % (0-9) Eosinophils (%) (Auto) 0 % (0-3) Basophils (%) (Auto) 0 % (0-3) Neutrophils # (Auto) 13.3 x10^3/uL (1.8-7.7) Lymphocytes # (Auto) 1.2 x10^3/uL (1.0-4.8) Monocytes # (Auto) 0.6 x10^3/uL (0.0-1.1) Eosinophils # (Auto) 0.0 x10^3/uL (0.0-0.7) Basophils # (Auto) 0.0 x10^3/uL (0.0-0.2) Sodium Level 140 mmol/L (136-145) Potassium Level 4.8 mmol/L (3.5-5.1) Chloride Level 100 mmol/L (98-107) Carbon Dioxide Level 25 mmol/L (21-32) Anion Gap 15 (6-14) Blood Urea Nitrogen 75 mg/dL (7-20) Creatinine 3.7 mg/dL (0.6-1.0) Estimated GFR (Cockcroft-Gault) 11.8 Glucose Level 186 mg/dL (70-99) Calcium Level 8.3 mg/dL (8.5-10.1) Magnesium Level 2.5 mg/dL (1.8-2.4) Test 01/09/21 03:30 01/09/21 07:45 White Blood Count 13.5 x10^3/uL (4.0-11.0) Red Blood Count 3.89 x10^6/uL (3.50-5.40) Hemoglobin 10.3 g/dL (12.0-15.5) Hematocrit 32.3 % (36.0-47.0) Mean Corpuscular Volume 83 fL (79-100) Mean Corpuscular Hemoglobin 27 pg (25-35) Mean Corpuscular Hemoglobin Concent 32 g/dL (31-37) Red Cell Distribution Width 14.2 % (11.5-14.5) Platelet Count 225 x10^3/uL (140-400) Neutrophils (%) (Auto) 88 % (31-73) Lymphocytes (%) (Auto) 5 % (24-48) Monocytes (%) (Auto) 7 % (0-9) Eosinophils (%) (Auto) 0 % (0-3) Basophils (%) (Auto) 0 % (0-3) Neutrophils # (Auto) 11.8 x10^3/uL (1.8-7.7) Lymphocytes # (Auto) 0.7 x10^3/uL (1.0-4.8) Monocytes # (Auto) 0.9 x10^3/uL (0.0-1.1) Eosinophils # (Auto) 0.0 x10^3/uL (0.0-0.7) Basophils # (Auto) 0.0 x10^3/uL (0.0-0.2) Sodium Level 140 mmol/L (136-145) Potassium Level 4.5 mmol/L (3.5-5.1) Chloride Level 101 mmol/L (98-107) Carbon Dioxide Level 27 mmol/L (21-32) Anion Gap 12 (6-14) Blood Urea Nitrogen 80 mg/dL (7-20) Creatinine 3.6 mg/dL (0.6-1.0) Estimated GFR (Cockcroft-Gault) 12.2 Glucose Level 215 mg/dL (70-99) Calcium Level 7.8 mg/dL (8.5-10.1) O2 Saturation 94 % (92-99) Arterial Blood pH 7.62 (7.35-7.45) Arterial Blood pCO2 at Patient Temp 25 mmHg (35-46) Arterial Blood pO2 at Patient Temp 69 mmHg (65-108) Arterial Blood HCO3 25 mmol/L (21-28) Arterial Blood Base Excess 5 mmol/L (-3-3) FiO2 50/vent Microbiology Micro Microbiology 01/05/21 Blood Culture - Preliminary, Resulted NO GROWTH AFTER 3 DAYS 01/05/21 Urine Culture - Final, Complete 01/05/21 Antimicrobic Susceptibility - Final, Complete Physical Exam HEENT: Neck Supple W Full Motion Chest: Symmetric LUNGS: Other (MV) Heart: RRR Abdomen: Soft N/T, Other (obese ) Extremities: Other (left BKA) Neurology: other (sedated ) Assessment Assessment 1. Acute on chronic systolic CHF; echo 10/26 with preserved LV systolic function. Echo this morning with LVEF 25% with pattern suggestive Takotsubo's cardiomyopathy. S/p IV diuresis. 2. Acute respiratory failure secondary to CHF 3. PEA arrest; s/p intubation. No VT/VF 4. Chest pain, mild troponin elevation; peak 848 with high-sensitivity trop. Most probably type II, demand ischemia 5. CAD; recent cath in May 2020 showed 60% stenosis involving LAD with negative IFR and 100% [employer] involving moderate caliber obtuse marginal branch of left circumflex artery with left to left collaterals. 6. NILDA on CKD; Cr ^ 3.7. marginal UOP. off dobutamine 7. Leukocytosis, UTI. cultures with E coli. ID following 8. Hypertension: presently hypotensive requiring pressor support 9. Hyperlipidemia: statin 10. Hypothyroidism: on levothyroxine 11. Diabetes, II 12. PAD s/p left BKA 13. RLE cellulitis; antibiotics as per IM 14. PAFIB; maintaining SR Recommendations Needs fluid offloading On Hospice prior to admission and presently full code. Family to discussed goals of care, proceeding with initiation of HD Avoid nephrotoxins, follow renal recs Secondary prevention; ASA, statin, BB Supportive care Justicifation of Admission Dx: Justifications for Admission: Justification of Admission Dx: N/A JAY SMYTH MD 01/10/21 0815: CARDIO Progress Notes Assessment Assessment Patient seen and examined 01/09/2021. Agree with TUBE OPERATOR's assessment and plan. Patient coded last night with PEA and had to be intubated for acute respiratory failure 2D echo showed LVEF 25%, pattern consistent with Takotsubo's cardiomyopathy. Slight troponin elevation probably demand ischemia. Doubt ACS. Agree with stopping heparin gtt Recent cardiac catheterization showed 60% stenosis involving LAD that was ph ysiologically insignificant based on IFR measurement. Continue management of acute renal insufficiency per nephrology team FARHANA HOFFMAN APRN Jan 09, 2021 11:40 JAY SMYTH MD Jan 10, 2021 08:15
--- NOTE | 2021-01-09 13:18 | PDOC ---
PROGRESS NOTES Date of Service DATE: 01/09/21 TIME: 13:08 Subjective Subjective code blue last night PEA and was intubated and sent to icu currently on sedation and pressors. discussed with son KASIA who wants to continue current treatment and will make further decisions based on how she responds to treatment. he is aware of her poor prognosis. he will review her code status. lab reviewed. Objective Objective Vital Signs Date Time Temp Pulse Resp B/P (MAP) Pulse Ox O2 Delivery O2 Flow Rate FiO2 01/09/21 12:00 Mechanical Ventilator 01/09/21 11:05 97 01/09/21 10:00 79 20 94/45 01/09/21 04:00 99.9 99.9 01/08/21 15:00 2.0 Intake and Output 01/09/21 07:00 Intake Total 1354 ml Output Total 224 ml Balance 1130 ml Intake Oral 180 ml IV Total 1024 ml Other 150 ml Output Urine Total 224 ml # Bowel Movements 1 Physical Exam Abdomen: Soft Heart: Regular rate, Normal S1, Normal S2 Extremities: No edema General: Alert HEENT: Atraumatic Lungs: Clear to auscultation, Other (decreased breath sounds. oral intubation) Neck: Supple Neuro: Other (sedated) Psych/Mental Status: Other (sedated) Skin: No rashes Assessment Assessment Problems1. Chest pain, resolved with sublingual nitroglycerin. 2. Non-ST segment elevated myocardial infarction. 3. 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 Leukocytosis resolved 5. Coronary artery disease, nonobstructive. 60% LAD 05/26 per cardiac cath 6. Diabetes mellitus type 2, on insulin with nephropathy and neuropathy. 7. Chronic kidney disease stage.3. 8. Hypertension. 9. Hyperlipidemia. 10. Hypothyroidism. 11. Obstructive sleep apnea. Treated with CPAP. 12. Morbid obesity. 13. Chronic venous insufficiency of the legs with left below-knee amputation, severe protein calorie malnutrition acute respiratory failure. hx of co2 narcosis in past acute kidney injury due to cardiorenal syndrome and possible intra vascular volume depletion from diuretics e. coli uti code blue/PEA 01/08/21 acute hypoxic and hypercapnic respiratory failure Medical Problems: (1) CHF exacerbation Status: Acute (2) CKD (chronic kidney disease) Status: Acute (3) NSTEMI (non-ST elevated myocardial infarction) Status: Acute (4) Person under investigation for COVID-19 Status: Acute (5) Respiratory failure, unspecified with hypoxia Status: Acute (6) UTI (urinary tract infection) Status: Acute Plan Plan of Care continue ventilator support continue pressors possible need for hemodialysis prognosis poor continue zosyn start nepro insulin sliding scale dobutamine discussed with DPOA and her nurse Comment Review of Relevant I have reviewed the following items helio (where applicable) has been applied. Labs Laboratory Tests Test 01/07/21 16:45 01/07/21 21:06 01/08/21 03:50 01/08/21 07:42 Glucose (Fingerstick) 188 mg/dL (70-99) 147 mg/dL (70-99) 168 mg/dL (70-99) White Blood Count 15.2 x10^3/uL (4.0-11.0) Red Blood Count 4.05 x10^6/uL (3.50-5.40) Hemoglobin 10.9 g/dL (12.0-15.5) Hematocrit 34.6 % (36.0-47.0) Mean Corpuscular Volume 86 fL (79-100) Mean Corpuscular Hemoglobin 27 pg (25-35) Mean Corpuscular Hemoglobin Concent 31 g/dL (31-37) Red Cell Distribution Width 14.3 % (11.5-14.5) Platelet Count 267 x10^3/uL (140-400) Sodium Level 138 mmol/L (136-145) Potassium Level 4.1 mmol/L (3.5-5.1) Chloride Level 98 mmol/L (98-107) Carbon Dioxide Level 32 mmol/L (21-32) Anion Gap 8 (6-14) Blood Urea Nitrogen 64 mg/dL (7-20) Creatinine 3.1 mg/dL (0.6-1.0) Estimated GFR (Cockcroft-Gault) 14.5 Glucose Level 197 mg/dL (70-99) Calcium Level 8.4 mg/dL (8.5-10.1) Magnesium Level 2.2 mg/dL (1.8-2.4) Troponin I High Sensitivity 377 ng/L (4-50) TE-Hac-G-Type Natriuretic Peptide 98071 pg/mL (0-449) Test 01/08/21 11:40 01/08/21 13:15 01/08/21 16:45 01/08/21 20:00 Glucose (Fingerstick) 170 mg/dL (70-99) 190 mg/dL (70-99) O2 Saturation 90 % (92-99) Arterial Blood pH 7.29 (7.35-7.45) Arterial Blood pCO2 at Patient Temp 51 mmHg (35-46) Arterial Blood pO2 at Patient Temp 65 mmHg (65-108) Arterial Blood HCO3 24 mmol/L (21-28) Arterial Blood Base Excess -3 mmol/L (-3-3) FiO2 2l nc White Blood Count 15.2 x10^3/uL (4.0-11.0) Red Blood Count 4.14 x10^6/uL (3.50-5.40) Hemoglobin 11.1 g/dL (12.0-15.5) Hematocrit 35.5 % (36.0-47.0) Mean Corpuscular Volume 86 fL (79-100) Mean Corpuscular Hemoglobin 27 pg (25-35) Mean Corpuscular Hemoglobin Concent 31 g/dL (31-37) Red Cell Distribution Width 14.3 % (11.5-14.5) Platelet Count 241 x10^3/uL (140-400) Neutrophils (%) (Auto) 88 % (31-73) Lymphocytes (%) (Auto) 8 % (24-48) Monocytes (%) (Auto) 4 % (0-9) Eosinophils (%) (Auto) 0 % (0-3) Basophils (%) (Auto) 0 % (0-3) Neutrophils # (Auto) 13.3 x10^3/uL (1.8-7.7) Lymphocytes # (Auto) 1.2 x10^3/uL (1.0-4.8) Monocytes # (Auto) 0.6 x10^3/uL (0.0-1.1) Eosinophils # (Auto) 0.0 x10^3/uL (0.0-0.7) Basophils # (Auto) 0.0 x10^3/uL (0.0-0.2) Sodium Level 140 mmol/L (136-145) Potassium Level 4.8 mmol/L (3.5-5.1) Chloride Level 100 mmol/L (98-107) Carbon Dioxide Level 25 mmol/L (21-32) Anion Gap 15 (6-14) Blood Urea Nitrogen 75 mg/dL (7-20) Creatinine 3.7 mg/dL (0.6-1.0) Estimated GFR (Cockcroft-Gault) 11.8 Glucose Level 186 mg/dL (70-99) Calcium Level 8.3 mg/dL (8.5-10.1) Magnesium Level 2.5 mg/dL (1.8-2.4) Test 01/09/21 03:30 01/09/21 07:45 White Blood Count 13.5 x10^3/uL (4.0-11.0) Red Blood Count 3.89 x10^6/uL (3.50-5.40) Hemoglobin 10.3 g/dL (12.0-15.5) Hematocrit 32.3 % (36.0-47.0) Mean Corpuscular Volume 83 fL (79-100) Mean Corpuscular Hemoglobin 27 pg (25-35) Mean Corpuscular Hemoglobin Concent 32 g/dL (31-37) Red Cell Distribution Width 14.2 % (11.5-14.5) Platelet Count 225 x10^3/uL (140-400) Neutrophils (%) (Auto) 88 % (31-73) Lymphocytes (%) (Auto) 5 % (24-48) Monocytes (%) (Auto) 7 % (0-9) Eosinophils (%) (Auto) 0 % (0-3) Basophils (%) (Auto) 0 % (0-3) Neutrophils # (Auto) 11.8 x10^3/uL (1.8-7.7) Lymphocytes # (Auto) 0.7 x10^3/uL (1.0-4.8) Monocytes # (Auto) 0.9 x10^3/uL (0.0-1.1) Eosinophils # (Auto) 0.0 x10^3/uL (0.0-0.7) Basophils # (Auto) 0.0 x10^3/uL (0.0-0.2) Sodium Level 140 mmol/L (136-145) Potassium Level 4.5 mmol/L (3.5-5.1) Chloride Level 101 mmol/L (98-107) Carbon Dioxide Level 27 mmol/L (21-32) Anion Gap 12 (6-14) Blood Urea Nitrogen 80 mg/dL (7-20) Creatinine 3.6 mg/dL (0.6-1.0) Estimated GFR (Cockcroft-Gault) 12.2 Glucose Level 215 mg/dL (70-99) Calcium Level 7.8 mg/dL (8.5-10.1) O2 Saturation 94 % (92-99) Arterial Blood pH 7.62 (7.35-7.45) Arterial Blood pCO2 at Patient Temp 25 mmHg (35-46) Arterial Blood pO2 at Patient Temp 69 mmHg (65-108) Arterial Blood HCO3 25 mmol/L (21-28) Arterial Blood Base Excess 5 mmol/L (-3-3) FiO2 50/vent Laboratory Tests Test 01/08/21 13:15 01/08/21 16:45 01/08/21 20:00 01/09/21 03:30 O2 Saturation 90 % (92-99) Arterial Blood pH 7.29 (7.35-7.45) Arterial Blood pCO2 at Patient Temp 51 mmHg (35-46) Arterial Blood pO2 at Patient Temp 65 mmHg (65-108) Arterial Blood HCO3 24 mmol/L (21-28) Arterial Blood Base Excess -3 mmol/L (-3-3) FiO2 2l nc Glucose (Fingerstick) 190 mg/dL (70-99) White Blood Count 15.2 x10^3/uL (4.0-11.0) 13.5 x10^3/uL (4.0-11.0) Red Blood Count 4.14 x10^6/uL (3.50-5.40) 3.89 x10^6/uL (3.50-5.40) Hemoglobin 11.1 g/dL (12.0-15.5) 10.3 g/dL (12.0-15.5) Hematocrit 35.5 % (36.0-47.0) 32.3 % (36.0-47.0) Mean Corpuscular Volume 86 fL (79-100) 83 fL (79-100) Mean Corpuscular Hemoglobin 27 pg (25-35) 27 pg (25-35) Mean Corpuscular Hemoglobin Concent 31 g/dL (31-37) 32 g/dL (31-37) Red Cell Distribution Width 14.3 % (11.5-14.5) 14.2 % (11.5-14.5) Platelet Count 241 x10^3/uL (140-400) 225 x10^3/uL (140-400) Neutrophils (%) (Auto) 88 % (31-73) 88 % (31-73) Lymphocytes (%) (Auto) 8 % (24-48) 5 % (24-48) Monocytes (%) (Auto) 4 % (0-9) 7 % (0-9) Eosinophils (%) (Auto) 0 % (0-3) 0 % (0-3) Basophils (%) (Auto) 0 % (0-3) 0 % (0-3) Neutrophils # (Auto) 13.3 x10^3/uL (1.8-7.7) 11.8 x10^3/uL (1.8-7.7) Lymphocytes # (Auto) 1.2 x10^3/uL (1.0-4.8) 0.7 x10^3/uL (1.0-4.8) Monocytes # (Auto) 0.6 x10^3/uL (0.0-1.1) 0.9 x10^3/uL (0.0-1.1) Eosinophils # (Auto) 0.0 x10^3/uL (0.0-0.7) 0.0 x10^3/uL (0.0-0.7) Basophils # (Auto) 0.0 x10^3/uL (0.0-0.2) 0.0 x10^3/uL (0.0-0.2) Sodium Level 140 mmol/L (136-145) 140 mmol/L (136-145) Potassium Level 4.8 mmol/L (3.5-5.1) 4.5 mmol/L (3.5-5.1) Chloride Level 100 mmol/L (98-107) 101 mmol/L (98-107) Carbon Dioxide Level 25 mmol/L (21-32) 27 mmol/L (21-32) Anion Gap 15 (6-14) 12 (6-14) Blood Urea Nitrogen 75 mg/dL (7-20) 80 mg/dL (7-20) Creatinine 3.7 mg/dL (0.6-1.0) 3.6 mg/dL (0.6-1.0) Estimated GFR (Cockcroft-Gault) 11.8 12.2 Glucose Level 186 mg/dL (70-99) 215 mg/dL (70-99) Calcium Level 8.3 mg/dL (8.5-10.1) 7.8 mg/dL (8.5-10.1) Magnesium Level 2.5 mg/dL (1.8-2.4) Test 01/09/21 07:45 O2 Saturation 94 % (92-99) Arterial Blood pH 7.62 (7.35-7.45) Arterial Blood pCO2 at Patient Temp 25 mmHg (35-46) Arterial Blood pO2 at Patient Temp 69 mmHg (65-108) Arterial Blood HCO3 25 mmol/L (21-28) Arterial Blood Base Excess 5 mmol/L (-3-3) FiO2 50/vent Microbiology 01/05/21 Blood Culture - Preliminary, Resulted NO GROWTH AFTER 3 DAYS 01/05/21 Urine Culture - Final, Complete 01/05/21 Antimicrobic Susceptibility - Final, Complete Medications Current Medications Furosemide (Lasix) 80 mg 1X ONCE IVP Last administered on 01/05/21at 09:21; Start 01/05/21 at 09:00; Stop 01/05/21 at 09:01; Status DC Nitroglycerin (Nitrostat) 0.4 mg PRN Q5MIN PRN SL CHEST PAIN Last administered on 01/08/21at 03:16; Start 01/05/21 at 09:30 Ceftriaxone Sodium (Rocephin) 1 gm 1X ONCE IVP Last administered on 01/05/21at 12:41; Start 01/05/21 at 12:00; Stop 01/05/21 at 12:09; Status DC Aspirin (Raulito Aspirin) 325 mg DAILY PO Last administered on 01/09/21at 08:12; Start 01/05/21 at 12:00 Insulin Human Lispro (HumaLOG) 4 units TIDAC SQ Last administered on 01/08/21at 08:25; Start 01/05/21 at 16:30 Insulin Glargine (Lantus Syringe) 12 unit QHS SQ Last administered on 01/08/21at 21:14; Start 01/05/21 at 21:00 Insulin Human Lispro (HumaLOG) 0-8 UNITS TIDWMEALS SQ Last administered on 01/05/21 23:41; Start 01/05/21 at 17:00 Ondansetron HCl (Zofran Odt) 4 mg PRN Q6HRS PRN PO NAUSEA/VOMITING Last administered on 01/06/21 23:20; Start 01/05/21 at 11:45 Ondansetron HCl (Zofran Odt) 4 mg TIDAC PO Last administered on 01/08/21 08:16; Start 01/05/21 at 12:00 Levothyroxine Sodium (Synthroid) 150 mcg DAILY06 PO Last administered on 01/09/21 06:15; Start 01/06/21 at 06:00 Furosemide (Lasix) 40 mg BID92 PO Last administered on 01/06/21 08:38; Start 01/05/21 at 14:00; Stop 01/06/21 at 10:42; Status DC Metolazone (Zaroxolyn) 2.5 mg MoWeFr@0900 PO Last administered on 01/08/21 08:17; Start 01/06/21 at 09:00; Stop 01/08/21 at 12:26; Status DC Potassium Chloride (Klor-Con) 20 meq BID PO Last administered on 01/06/21at 08:38; Start 01/05/21 at 21:00; Stop 01/06/21 at 10:42; Status DC Metoprolol Succinate (Toprol Xl) 50 mg DAILY PO Last administered on 01/08/21 08:17; Start 01/06/21 at 09:00 Amlodipine Besylate (Norvasc) 5 mg DAILY PO Last administered on 01/08/21 08:18; Start 01/06/21 at 09:00 Senna/Docusate Sodium (Senna Plus) 2 tab QHS PO Last administered on 01/07/21 20:11; Start 01/05/21 at 21:00 Allopurinol (Zyloprim) 100 mg DAILY PO Last administered on 01/09/21 08:13; Start 01/06/21 at 09:00 Atorvastatin Calcium (Lipitor) 40 mg QHS PO Last administered on 01/08/21at 21:10; Start 01/05/21 at 21:00 Paroxetine HCl (Paxil) 20 mg DAILY PO Last administered on 01/09/21at 08:12; Start 01/06/21 at 09:00 Piperacillin Sod/ Tazobactam Sod 3.375 gm/Sodium Chloride 50 ml @ 100 mls/hr Q6HRS IV Last administered on 01/06/21at 06:08; Start 01/05/21 at 12:00; Stop 01/06/21 at 10:42; Status DC Heparin Sodium (Porcine) (Heparin Sodium) 5,000 unit Q12HR SQ ; Start 01/05/21 at 21:00; Stop 01/05/21 at 18:35; Status DC Famotidine (Pepcid) 20 mg QHS PO Last administered on 01/08/21at 21:10; Start 01/05/21 at 21:00 Acetaminophen (Tylenol) 650 mg PRN Q6HRS PRN PO MILD PAIN / TEMP > 100.3'F Last administered on 01/07/21at 08:45; Start 01/05/21 at 12:15 Heparin Sodium/ Dextrose 250 ml @ 13.32 mls/ hr CONT PRN IV PER PROTOCOL Last administered on 01/06/21at 17:00; Start 01/05/21 at 19:00; Stop 01/07/21 at 14:35; Status DC Heparin Sodium (Porcine) (Heparin Sodium) 2,800 unit PRN Q6HRS PRN IV FOR UFH LEVEL LESS THAN 0.2 Last administered on 01/06/21at 21:30; Start 01/05/21 at 19:00; Stop 01/07/21 at 14:35; Status DC Perflutren Protein Type A Microsphe (Optison) 0.66 mg STK-MED ONCE IV ; Start 01/06/21 at 07:20; Stop 01/06/21 at 07:20; Status DC Perflutren Protein Type A Microsphe (Optison) 0.66 mg 1X ONCE IV ; Start 01/06/21 at 08:15; Stop 01/06/21 at 08:16; Status DC Piperacillin Sod/ Tazobactam Sod 2.25 gm/Sodium Chloride 50 ml @ 100 mls/hr Q6HRS IV Last administered on 01/08/21at 05:17; Start 01/06/21 at 12:00; Stop 01/08/21 at 10:40; Status DC Potassium Chloride (Klor-Con) 20 meq TID PO Last administered on 01/07/21at 08:44; Start 01/06/21 at 14:00; Stop 01/07/21 at 10:42; Status DC Furosemide (Lasix) 40 mg BID92 IVP Last administered on 01/07/21at 08:46; Start 01/06/21 at 14:00; Stop 01/07/21 at 10:42; Status DC Potassium Chloride (Klor-Con) 20 meq 1X ONCE PO Last administered on 01/06/21at 11:19; Start 01/06/21 at 11:30; Stop 01/06/21 at 11:31; Status DC Lactobacillus Rhamnosus (Culturelle) 1 cap BID PO Last administered on 01/09/21at 08:13; Start 01/06/21 at 21:00 Perflutren Protein Type A Microsphe (Optison) 0.66 mg STK-MED ONCE IV ; Start 01/06/21 at 08:00; Stop 01/07/21 at 09:00; Status DC Potassium Chloride (Klor-Con) 20 meq BID PO Last administered on 01/08/21at 08:16; Start 01/07/21 at 21:00; Stop 01/08/21 at 12:26; Status DC Furosemide (Lasix) 40 mg DAILY PO Last administered on 01/08/21at 08:16; Start 01/08/21 at 09:00; Stop 01/08/21 at 12:26; Status DC Potassium Chloride (Klor-Con) 20 meq 1X ONCE PO Last administered on 01/07/21at 11:07; Start 01/07/21 at 10:45; Stop 01/07/21 at 10:46; Status DC Bisacodyl (Dulcolax Supp) 10 mg PRN DAILY PRN TN CONSTIPATION Last administered on 01/08/21at 02:20; Start 01/08/21 at 02:15 Dobutamine HCl/ Dextrose 250 ml @ 17.43 mls/ hr CONT PRN IV SEE I/O RECORD Last administered on 01/08/21at 10:20; Start 01/08/21 at 10:00 Ceftriaxone Sodium (Rocephin) 1 gm Q24H IVP Last administered on 01/08/21at 11:06; Start 01/08/21 at 11:00; Stop 01/09/21 at 10:15; Status DC Heparin Sodium (Porcine) (Heparin Sodium) 5,000 unit Q12HR SQ Last administered on 01/09/21at 08:13; Start 01/08/21 at 13:00 Acetaminophen/ Hydrocodone Bitart (Lortab 5/325) 1 tab PRN Q4HRS PRN PO PAIN; Start 01/08/21 at 13:45; Status UNV Norepinephrine Bitartrate 8 mg/ Dextrose 258 ml @ 22.485 mls/ hr CONT PRN IV PER PROTOCOL Last administered on 01/09/21at 11:05; Start 01/08/21 at 19:00 Norepinephrine Bitartrate 8 mg/ Dextrose 258 ml @ 22.485 mls/ hr CONT PRN IV PER PROTOCOL; Start 01/08/21 at 19:00; Status UNV Fentanyl Citrate 30 ml @ 0 mls/hr CONT PRN IV SEE PROTOCOL Last administered on 01/09/21at 09:33; Start 01/08/21 at 19:00 Midazolam HCl 100 ml @ 1 mls/hr CONT PRN IV SEE PROTOCOL Last administered on 01/09/21at 10:12; Start 01/08/21 at 19:00 Propofol 100 ml @ 0.1 mls/hr CONT PRN IV PER PROTOCOL; Start 01/08/21 at 19:00 Chlorhexidine Gluconate (Peridex) 15 ml BID MM Last administered on 01/09/21at 08:14; Start 01/08/21 at 21:00 Glycerin/ Hypromellose/ Polyethylene (Artificial Tears) 1 drop PRN Q1HR PRN OU DRY EYE; Start 01/08/21 at 19:00 Dexmedetomidine HCl 400 mcg/ Sodium Chloride 100 ml @ 5.8 mls/hr CONT PRN IV PER PROTOCOL; Start 01/08/21 at 19:00 Sodium Chloride 500 ml @ 500 mls/hr 1X PRN PRN IV SEE COMMENTS; Start 01/08/21 at 19:00 Atropine Sulfate (ATROPINE 0.5mg SYRINGE) 0.5 mg PRN Q5MIN PRN IV SEE COMMENTS; Start 01/08/21 at 19:00 Ringer's Solution 1,000 ml @ 100 mls/hr Q10H IV Last administered on 01/08/21at 21:08; Start 01/08/21 at 20:15 Fentanyl Citrate (Fentanyl 2ml Vial) 100 mcg STK-MED ONCE .ROUTE ; Start 01/08/21 at 20:42; Stop 01/08/21 at 20:42; Status DC Piperacillin Sod/ Tazobactam Sod 2.25 gm/Sodium Chloride 50 ml @ 100 mls/hr Q6HRS IV Last administered on 01/09/21at 11:05; Start 01/09/21 at 12:00 Active Scripts Active Cephalexin 500 Mg Tablet 1 Tab PO TID 7 Days Thera-M Tablet (Multivits,Ca,Minerals/Iron/Fa) 1 Each Tablet 1 Tab PO DAILY Vitamin C (Ascorbic Acid) 500 Mg Tablet 500 Mg PO DAILY Lantus (Insulin Glargine,Hum.rec.anlog) 100 Unit/1 Ml Vial 12 Unit SQ QHS Metolazone 2.5 Mg Tablet 2.5 Mg PO QMWF Klor-Con M20 (Potassium Chloride) 20 Meq Tab.er.prt 20 Meq PO BID Toprol XL (Metoprolol Succinate) 50 Mg Tab.er.24h 50 Mg PO DAILY Furosemide 40 Mg Tablet 40 Mg PO BID Amlodipine Besylate 5 Mg Tablet 5 Mg PO DAILY Atorvastatin Calcium 40 Mg Tablet 40 Mg PO QHS Admelog (Insulin Lispro) 100 Unit/1 Ml Vial 6 Units SQ TIDAC hold if blood sugar less than 90 before a meal Nyamyc (Nystatin) 15 Gm Powder 1 Renee TP BID Stool Soft-Stimulant Lax Tab (Sennosides/Docusate Sodium) 1 Each Tablet 2 Tab PO DAILY Feosol (Ferrous Sulfate) 325 Mg Tablet 325 Mg PO QODAY Synthroid (Levothyroxine Sodium) 150 Mcg Tablet 150 Mcg PO DAILY06 Allopurinol 100 Mg Tablet 100 Mg PO DAILY Paroxetine Hcl 20 Mg Tablet 20 Mg PO DAILY Reported Aspirin 81 Mg Tab.chew 81 Mg PO HS Tylenol (Acetaminophen) 325 Mg Tablet 650 Mg PO PRN Q4HRS Vitals/I & O Vital Sign - Last 24 Hours 01/08/21 01/08/21 01/08/21 01/08/21 13:14 14:20 15:00 15:14 Temp 97.6 97.6 Pulse 86 82 82 86 Resp 20 B/P (MAP) 104/64 (77) 87/49 (62) 87/49 (62) 85/60 (68) Pulse Ox 96 O2 Delivery Nasal Cannula O2 Flow Rate 2.0 01/08/21 01/08/21 01/08/21 01/08/21 15:49 16:07 16:14 17:14 Pulse 78 77 80 B/P (MAP) 76/51 (59) 114/56 (75) 112/57 (75) Pulse Ox 97 O2 Delivery BiPAP/CPAP 01/08/21 01/08/21 01/08/21 01/08/21 18:45 19:00 19:12 19:20 Temp 98.1 98.1 Pulse 106 98 Resp 20 20 20 B/P (MAP) 82/47 63/47 Pulse Ox 100 100 97 100 O2 Delivery Ventilator Ventilator Ventilator Ventilator 01/08/21 01/08/21 01/08/21 01/08/21 19:35 19:45 20:00 20:00 Pulse 88 82 78 Resp 20 20 20 B/P (MAP) 96/62 59/46 98/57 Pulse Ox 100 100 100 O2 Delivery Ventilator Ventilator Mechanical Ventilator Ventilator 01/08/21 01/08/21 01/08/21 01/08/21 21:00 21:09 21:15 21:30 Pulse 74 74 74 Resp 20 20 20 B/P (MAP) 109/72 107/68 96/61 Pulse Ox 100 100 100 100 O2 Delivery Ventilator Ventilator Ventilator Ventilator 01/08/21 01/08/21 01/08/21 01/08/21 22:00 23:00 23:15 23:48 Pulse 75 74 72 Resp 20 20 20 B/P (MAP) 95/62 104/59 98/64 Pulse Ox 100 99 100 99 O2 Delivery Ventilator Ventilator Ventilator Ventilator 01/09/21 01/09/21 01/09/21 01/09/21 00:00 00:00 01:00 02:00 Temp 98.7 98.7 Pulse 72 73 74 Resp 20 20 20 B/P (MAP) 92/55 99/55 104/59 Pulse Ox 99 100 100 O2 Delivery Mechanical Ventilator Ventilator Ventilator Ventilator 01/09/21 01/09/21 01/09/21 01/09/21 02:15 02:40 03:00 04:00 Pulse 74 74 Resp 20 20 B/P (MAP) 96/54 97/53 Pulse Ox 100 100 99 O2 Delivery Ventilator Ventilator Ventilator Mechanical Ventilator 01/09/21 01/09/21 01/09/21 01/09/21 04:00 04:15 04:30 05:00 Temp 99.9 99.9 Pulse 74 76 74 74 Resp 20 20 20 20 B/P (MAP) 101/58 100/54 105/48 109/59 Pulse Ox 99 99 99 99 O2 Delivery Ventilator Ventilator Ventilator Ventilator 01/09/21 01/09/21 01/09/21 01/09/21 05:03 05:15 06:00 07:00 Pulse 77 80 80 Resp 20 20 20 B/P (MAP) 107/62 105/63 106/65 Pulse Ox 100 99 99 99 O2 Delivery Ventilator Ventilator Ventilator Ventilator 01/09/21 01/09/21 01/09/21 01/09/21 07:40 08:00 08:00 09:00 Pulse 84 80 Resp 20 20 B/P (MAP) 110/61 90/49 Pulse Ox 99 99 99 O2 Delivery Ventilator Ventilator Mechanical Ventilator Ventilator 01/09/21 01/09/21 01/09/21 01/09/21 09:29 09:33 10:00 10:03 Pulse 79 Resp 14 20 B/P (MAP) 94/45 Pulse Ox 98 99 99 O2 Delivery Ventilator Ventilator Ventilator Ventilator 01/09/21 01/09/21 11:05 12:00 Pulse Ox 97 O2 Delivery Ventilator Mechanical Ventilator Intake and Output 01/08/21 01/08/21 01/09/21 15:00 23:00 07:00 Intake Total 180 ml 90 ml 1084 ml Output Total 32 ml 192 ml Balance 180 ml 58 ml 892 ml Justifications for Admission Other Justification TERE ALLISON MD Jan 09, 2021 13:18
[2021-01-09] MEDS: FAMOTIDINE 20 MG TABLET. PO SCH (21:30)
[2021-01-09] MEDS: ATORVASTATIN CALCIUM 40 MG TABLET. PO SCH (21:30)
[2021-01-09] MEDS: SENNOSIDES/DOCUSATE 8.6/50MG TABLET. PO SCH (21:30)
[2021-01-10] VITALS (25 sets, daily range): BP systolic 99–123; BP diastolic 51–68
[2021-01-10] MEDS: PIPERACILLIN/TAZOBACTAM 2.25 GM in IV NORMAL SALINE 50ML 50 ML IV SCH ×5 (00:34→23:35)
[2021-01-10] MEDS: IV RINGERS,LACTATED 1000ML 1,000 ML IV SCH (02:08)
[2021-01-10] MEDS: ACETAMINOPHEN 325 MG TABLET. PO PRN (03:59)
--- NOTE | 2021-01-10 04:41 | EKG ---
[facility] [address] [place] [address] Test Date: 2021-01-10 Test Time: 04:41:56 Pat Name: DIMAS REDMOND Department: Room: 110 1 Gender: F Financial Assistant: LAMONT : 1940 Requested By: KULDIP TINEO Order Number: [id number] Reading MD: Kyle Charles Measurements Intervals [place] Rate: 83 P: -59 [place]: 190 QRS: -22 QRSD: 154 T: 154 QT: 424 QTc: 499 Interpretive Statements SINUS RHYTHM LEFTWARD AXIS LOW LIMB LEAD VOLTAGE NON SPECIFIC INTRAVENTRICULAR BLOCK QRS(T) CONTOUR ABNORMALITY CONSISTENT WITH ANTERIOR INFARCT PROBABLY OLD ABNORMAL ECG RI6.01 Electronically Signed On 01-13-2021 9:40:58 [employer]PECT[employer] by Kyle Charles
[2021-01-10 04:48] LABS: BASO % 0 % (0-3); EOS % 0 % (0-3); HEMATOCRIT 35.6 % (36.0-47.0); HEMOGLOBIN 11.2 g/dL (12.0-15.5); LYMPH # 0.6 x10^3/uL (1.0-4.8); LYMPH % 4 % (24-48); MEAN CORPUSCULAR HEMOGLOBIN 26 pg (25-35); MEAN CORPUSCULAR HGB CONC 32 g/dL (31-37); MEAN CORPUSCULAR VOLUME 84 fL (79-100); MONO # 1.5 x10^3/uL (0.0-1.1); MONO % 10 % (0-9); NEUT # 13.3 x10^3/uL (1.8-7.7); NEUT % 86 % (31-73); PLATELET COUNT 208 x10^3/uL (140-400); RED BLOOD COUNT 4.26 x10^6/uL (3.50-5.40); RED CELL DISTRIBUTION WIDTH 14.3 % (11.5-14.5); WHITE BLOOD COUNT 15.5 x10^3/uL (4.0-11.0)
[2021-01-10 04:58] LABS: CALCIUM 8.1 mg/dL (8.5-10.1); CREATININE 3.6 mg/dL (0.6-1.0); GFR 12.2
--- NOTE | 2021-01-10 05:07 | RAD ---
XR CHEST 1V 01/10/2021 4:32 AM INDICATION: Congestive heart failure and respiratory failure COMPARISON: 01/09/2021 TECHNIQUE: Portable frontal view of the chest is provided. FINDINGS: The cardiomediastinal silhouette is similar in appearance. Endotracheal tube and nasogastric tube are in similar position. Moderate right and small left pleural effusions are identified with adjacent compressive atelectasis versus infiltrate. Moderate pulmonary vascular congestion. Inflamed consolidative change identified a t the right upper lobe, stable. No suspicious osseous abnormality. IMPRESSION: Aeration of the lungs appears similar to the prior examination. Support lines and tubes are in simila r position. Electronically signed by: Lakia Rain MD (01/10/2021 5:04 AM) ANTHONY
[2021-01-10] MEDS ORDERED: HEPARIN for IV BOLUS 10,000 UNIT/10 ML VIAL. IV PRN (05:30)
--- NOTE | 2021-01-10 05:35 | NUR ---
Earlier in this shift, I noticed ST elevation on the monitor. EKG and stat troponin ordered. Dr. Kessler notified of elevated trop and abnormal EKG--orders received to start Heparin gtt and stop SQ Heparin.
[2021-01-10] MEDS: LEVOTHYROXINE 150 MCG TABLET PO SCH (05:41)
[2021-01-10] MEDS: HEPARIN 25,000UTS/250ML PREMIX 250 ML IV PRN ×3 (05:42→21:37)
[2021-01-10] MEDS: ANTI-COAG MONITOR BY PHARMACY. MC PRN ×2 (05:44→10:00)
[2021-01-10] MEDS: INSULIN LISPRO 300 UNITS/3 ML VIAL. SQ SCH ×5 (05:57→23:36)
[2021-01-10] MEDS: MIDAZOLAM 100mg/100ml NS BAG 100 ML IV PRN (05:58)
[2021-01-10] MEDS: ONDANSETRON ODT 4 MG TAB.RAPDIS. PO SCH ×3 (07:30→14:18)
--- NOTE | 2021-01-10 08:24 | PDOC ---
PULMONARY PROGRESS NOTES DATE: 01/10/21 TIME: 08:24 Subjective Patient remains critically ill currently on assist control ventilation 50% FiO2 Vitals Vital Signs Date Time Temp Pulse Resp B/P (MAP) Pulse Ox O2 Delivery O2 Flow Rate FiO2 01/10/21 08:00 98.9 72 13 113/58 97 Ventilator 98.9 Lungs: Crackles Cardiovascular: S1, S2 Abdomen: Soft, Non-tender, Other Extremities: Other (Status post left BKA) Skin: Warm Labs Laboratory Tests Test 01/08/21 11:40 01/08/21 13:15 01/08/21 16:45 01/08/21 20:00 Glucose (Fingerstick) 170 mg/dL (70-99) 190 mg/dL (70-99) O2 Saturation 90 % (92-99) Arterial Blood pH 7.29 (7.35-7.45) Arterial Blood pCO2 at Patient Temp 51 mmHg (35-46) Arterial Blood pO2 at Patient Temp 65 mmHg (65-108) Arterial Blood HCO3 24 mmol/L (21-28) Arterial Blood Base Excess -3 mmol/L (-3-3) FiO2 2l nc White Blood Count 15.2 x10^3/uL (4.0-11.0) Red Blood Count 4.14 x10^6/uL (3.50-5.40) Hemoglobin 11.1 g/dL (12.0-15.5) Hematocrit 35.5 % (36.0-47.0) Mean Corpuscular Volume 86 fL (79-100) Mean Corpuscular Hemoglobin 27 pg (25-35) Mean Corpuscular Hemoglobin Concent 31 g/dL (31-37) Red Cell Distribution Width 14.3 % (11.5-14.5) Platelet Count 241 x10^3/uL (140-400) Neutrophils (%) (Auto) 88 % (31-73) Lymphocytes (%) (Auto) 8 % (24-48) Monocytes (%) (Auto) 4 % (0-9) Eosinophils (%) (Auto) 0 % (0-3) Basophils (%) (Auto) 0 % (0-3) Neutrophils # (Auto) 13.3 x10^3/uL (1.8-7.7) Lymphocytes # (Auto) 1.2 x10^3/uL (1.0-4.8) Monocytes # (Auto) 0.6 x10^3/uL (0.0-1.1) Eosinophils # (Auto) 0.0 x10^3/uL (0.0-0.7) Basophils # (Auto) 0.0 x10^3/uL (0.0-0.2) Sodium Level 140 mmol/L (136-145) Potassium Level 4.8 mmol/L (3.5-5.1) Chloride Level 100 mmol/L (98-107) Carbon Dioxide Level 25 mmol/L (21-32) Anion Gap 15 (6-14) Blood Urea Nitrogen 75 mg/dL (7-20) Creatinine 3.7 mg/dL (0.6-1.0) Estimated GFR (Cockcroft-Gault) 11.8 Glucose Level 186 mg/dL (70-99) Calcium Level 8.3 mg/dL (8.5-10.1) Magnesium Level 2.5 mg/dL (1.8-2.4) Test 01/09/21 03:30 01/09/21 07:45 01/09/21 18:28 01/10/21 00:33 White Blood Count 13.5 x10^3/uL (4.0-11.0) Red Blood Count 3.89 x10^6/uL (3.50-5.40) Hemoglobin 10.3 g/dL (12.0-15.5) Hematocrit 32.3 % (36.0-47.0) Mean Corpuscular Volume 83 fL (79-100) Mean Corpuscular Hemoglobin 27 pg (25-35) Mean Corpuscular Hemoglobin Concent 32 g/dL (31-37) Red Cell Distribution Width 14.2 % (11.5-14.5) Platelet Count 225 x10^3/uL (140-400) Neutrophils (%) (Auto) 88 % (31-73) Lymphocytes (%) (Auto) 5 % (24-48) Monocytes (%) (Auto) 7 % (0-9) Eosinophils (%) (Auto) 0 % (0-3) Basophils (%) (Auto) 0 % (0-3) Neutrophils # (Auto) 11.8 x10^3/uL (1.8-7.7) Lymphocytes # (Auto) 0.7 x10^3/uL (1.0-4.8) Monocytes # (Auto) 0.9 x10^3/uL (0.0-1.1) Eosinophils # (Auto) 0.0 x10^3/uL (0.0-0.7) Basophils # (Auto) 0.0 x10^3/uL (0.0-0.2) Sodium Level 140 mmol/L (136-145) Potassium Level 4.5 mmol/L (3.5-5.1) Chloride Level 101 mmol/L (98-107) Carbon Dioxide Level 27 mmol/L (21-32) Anion Gap 12 (6-14) Blood Urea Nitrogen 80 mg/dL (7-20) Creatinine 3.6 mg/dL (0.6-1.0) Estimated GFR (Cockcroft-Gault) 12.2 Glucose Level 215 mg/dL (70-99) Calcium Level 7.8 mg/dL (8.5-10.1) O2 Saturation 94 % (92-99) Arterial Blood pH 7.62 (7.35-7.45) Arterial Blood pCO2 at Patient Temp 25 mmHg (35-46) Arterial Blood pO2 at Patient Temp 69 mmHg (65-108) Arterial Blood HCO3 25 mmol/L (21-28) Arterial Blood Base Excess 5 mmol/L (-3-3) FiO2 50/vent Glucose (Fingerstick) 173 mg/dL (70-99) 187 mg/dL (70-99) Test 01/10/21 04:05 01/10/21 05:57 White Blood Count 15.5 x10^3/uL (4.0-11.0) Red Blood Count 4.26 x10^6/uL (3.50-5.40) Hemoglobin 11.2 g/dL (12.0-15.5) Hematocrit 35.6 % (36.0-47.0) Mean Corpuscular Volume 84 fL (79-100) Mean Corpuscular Hemoglobin 26 pg (25-35) Mean Corpuscular Hemoglobin Concent 32 g/dL (31-37) Red Cell Distribution Width 14.3 % (11.5-14.5) Platelet Count 208 x10^3/uL (140-400) Neutrophils (%) (Auto) 86 % (31-73) Lymphocytes (%) (Auto) 4 % (24-48) Monocytes (%) (Auto) 10 % (0-9) Eosinophils (%) (Auto) 0 % (0-3) Basophils (%) (Auto) 0 % (0-3) Neutrophils # (Auto) 13.3 x10^3/uL (1.8-7.7) Lymphocytes # (Auto) 0.6 x10^3/uL (1.0-4.8) Monocytes # (Auto) 1.5 x10^3/uL (0.0-1.1) Eosinophils # (Auto) 0.0 x10^3/uL (0.0-0.7) Basophils # (Auto) 0.0 x10^3/uL (0.0-0.2) Sodium Level 141 mmol/L (136-145) Potassium Level 4.0 mmol/L (3.5-5.1) Chloride Level 103 mmol/L (98-107) Carbon Dioxide Level 29 mmol/L (21-32) Anion Gap 9 (6-14) Blood Urea Nitrogen 92 mg/dL (7-20) Creatinine 3.6 mg/dL (0.6-1.0) Estimated GFR (Cockcroft-Gault) 12.2 Glucose Level 193 mg/dL (70-99) Calcium Level 8.1 mg/dL (8.5-10.1) Troponin I High Sensitivity 71854 ng/L (4-50) Glucose (Fingerstick) 186 mg/dL (70-99) Laboratory Tests Test 01/09/21 18:28 01/10/21 00:33 01/10/21 04:05 01/10/21 05:57 Glucose (Fingerstick) 173 mg/dL (70-99) 187 mg/dL (70-99) 186 mg/dL (70-99) White Blood Count 15.5 x10^3/uL (4.0-11.0) Red Blood Count 4.26 x10^6/uL (3.50-5.40) Hemoglobin 11.2 g/dL (12.0-15.5) Hematocrit 35.6 % (36.0-47.0) Mean Corpuscular Volume 84 fL (79-100) Mean Corpuscular Hemoglobin 26 pg (25-35) Mean Corpuscular Hemoglobin Concent 32 g/dL (31-37) Red Cell Distribution Width 14.3 % (11.5-14.5) Platelet Count 208 x10^3/uL (140-400) Neutrophils (%) (Auto) 86 % (31-73) Lymphocytes (%) (Auto) 4 % (24-48) Monocytes (%) (Auto) 10 % (0-9) Eosinophils (%) (Auto) 0 % (0-3) Basophils (%) (Auto) 0 % (0-3) Neutrophils # (Auto) 13.3 x10^3/uL (1.8-7.7) Lymphocytes # (Auto) 0.6 x10^3/uL (1.0-4.8) Monocytes # (Auto) 1.5 x10^3/uL (0.0-1.1) Eosinophils # (Auto) 0.0 x10^3/uL (0.0-0.7) Basophils # (Auto) 0.0 x10^3/uL (0.0-0.2) Sodium Level 141 mmol/L (136-145) Potassium Level 4.0 mmol/L (3.5-5.1) Chloride Level 103 mmol/L (98-107) Carbon Dioxide Level 29 mmol/L (21-32) Anion Gap 9 (6-14) Blood Urea Nitrogen 92 mg/dL (7-20) Creatinine 3.6 mg/dL (0.6-1.0) Estimated GFR (Cockcroft-Gault) 12.2 Glucose Level 193 mg/dL (70-99) Calcium Level 8.1 mg/dL (8.5-10.1) Troponin I High Sensitivity 18072 ng/L (4-50) Medications Active Scripts Medications Dose Route/Sig Max Daily Dose Days Date Category Dose Instructions Cephalexin 500 Mg Tablet 1 Tab PO TID 7 07/05/20 Rx Thera-M Tablet (Multivits,Ca,Minerals/Iron/Fa) 1 Each Tablet 1 Tab PO DAILY 07/05/20 Rx Vitamin C (Ascorbic Acid) 500 Mg Tablet 500 Mg PO DAILY 07/05/20 Rx Lantus (Insulin Glargine,Hum.rec.anlog) 100 Unit/1 Ml Vial 12 Unit SQ QHS 07/05/20 Rx Metolazone 2.5 Mg Tablet 2.5 Mg PO QMWF 07/05/20 Rx Klor-Con M20 (Potassium Chloride) 20 Meq Tab.er.prt 20 Meq PO BID 07/05/20 Rx Toprol XL (Metoprolol Succinate) 50 Mg Tab.er.24h 50 Mg PO DAILY 07/05/20 Rx Furosemide 40 Mg Tablet 40 Mg PO BID 06/12/20 Rx Amlodipine Besylate 5 Mg Tablet 5 Mg PO DAILY 06/12/20 Rx Atorvastatin Calcium 40 Mg Tablet 40 Mg PO QHS 06/12/20 Rx Admelog (Insulin Lispro) 100 Unit/1 Ml Vial 6 Units SQ TIDAC 06/04/20 Rx hold if blood sugar less than 90 before a meal Nyamyc (Nystatin) 15 Gm Powder 1 Renee TP BID 05/12/20 Rx Stool Soft-Stimulant Lax Tab (Sennosides/Docusate Sodium) 1 Each Tablet 2 Tab PO DAILY 05/12/20 Rx Feosol (Ferrous Sulfate) 325 Mg Tablet 325 Mg PO QODAY 05/12/20 Rx Aspirin 81 Mg Tab.chew 81 Mg PO HS 05/03/20 Reported Synthroid (Levothyroxine Sodium) 150 Mcg Tablet 150 Mcg PO DAILY06 05/21/19 Rx Allopurinol 100 Mg Tablet 100 Mg PO DAILY 05/21/19 Rx Paroxetine Hcl 20 Mg Tablet 20 Mg PO DAILY 05/21/19 Rx Tylenol (Acetaminophen) 325 Mg Tablet 650 Mg PO PRN Q4HRS 05/19/13 Reported Impression . IMPRESSION: 1. Acute on chronic hypoxemic hypercapnic respiratory failure. 2. Acute on chronic diastolic heart failure. 3. Peripheral arterial disease, status post left knee amputation. 4. Obstructive sleep apnea. 5. Chest pain per Cardiology./Cardiomyopathy ejection fraction 25% 6. Leukocytosis related to urinary tract infection, Escherichia coli. Infectious Disease has been following. 7. Hypothyroidism. 8. Type 2 diabetes. 9. Paroxysmal atrial fibrillation. 10. Status post CODE BLUE 11. Acute renal failure Plan . Updated 01/10 Continue current support Discussed case with son yesterday Discussed case with Dr. Rollins yesterday Overall prognosis is poor Patient is currently DNR Updated 01/09 Case discussed with son at the bedside who is the DPOA, I informed him that patient had multiorgan failure, I recommend withdrawing care and allowing natural Patient has advanced directive, did not want to be placed on mechanical support She was on hospice prior to this admission We will continue current support, awaiting family decision for possible comfort care Case discussed with RN and RT Case discussed with Dr. Lara Total cumulative critical care time of 30 minutes with no overlap RYNE LIN MD Jan 10, 2021 08:24
--- NOTE | 2021-01-10 08:41 | PDOC ---
PROGRESS NOTES Date of Service DATE: 01/10/21 TIME: 08:32 Subjective Subjective intubated and off of levophed and on heparin drip . troponin 11.457 post cardiac arrest and NILDA. making urine. cxr with moderate right pleural effusion and small left pleural effusion and pulmonary vascular congestion. cratinine 3.6 bun 92. wbc 15.5. blood sugars okay. started tube feeding. discussed with her nurse. . DNR per DPOA. Objective Objective Vital Signs Date Time Temp Pulse Resp B/P (MAP) Pulse Ox O2 Delivery O2 Flow Rate FiO2 01/10/21 08:00 98.9 72 13 113/58 97 Ventilator 98.9 01/08/21 15:00 2.0 Intake and Output 01/10/21 07:00 Intake Total 1621 ml Output Total 865 ml Balance 756 ml IV Total 780 ml Tube Feeding 661 ml Other 180 ml Output Urine Total 865 ml Physical Exam Abdomen: Normal bowel sounds, Soft, Other (obese) Heart: Regular rate Extremities: Other (1 plus edema RLE. left BKA) General: Alert HEENT: Atraumatic Lungs: Other (clear. decreased breath sounds anterirly. intubated.) Neuro: Other (sedated) Psych/Mental Status: Other (sedated) Skin: Other (mild erythema left pretibial area due to inflammation) Assessment Assessment Problems1. Chest pain, resolved with sublingual nitroglycerin. 2. Non-ST segment elevated myocardial infarction. 3. Nfwig-[id number]-[id number] systolic congestive heart failure, 4. Leukocytosis 5. Coronary artery disease, nonobstructive. 60% LAD 05/26 per cardiac cath 6. Diabetes mellitus type 2, on insulin with nephropathy and neuropathy. 7. Chronic kidney disease stage.3. 8. Hypertension. 9. Hyperlipidemia. 10. Hypothyroidism. 11. Obstructive sleep apnea. Treated with CPAP. 12. Morbid obesity. 13. Chronic venous insufficiency of the legs with left below-knee amputation, severe protein calorie malnutrition acute respiratory failure. hx of co2 narcosis in past acute kidney injury due to cardiorenal syndrome e. coli uti code blue/PEA 01/08/21 acute hypoxic and hypercapnic respiratory failure on ventilator Medical Problems: (1) CHF exacerbation Status: Acute (2) CKD (chronic kidney disease) Status: Acute (3) NSTEMI (non-ST elevated myocardial infarction) Status: Acute (4) Person under investigation for COVID-19 Status: Acute (5) Respiratory failure, unspecified with hypoxia Status: Acute (6) UTI (urinary tract infection) Status: Acute Plan Plan of Care continue ventilator support increase tube feeding lasix 40 mg iv now continue zosyn defer heparin drip to cardiology Comment Review of Relevant I have reviewed the following items helio (where applicable) has been applied. Labs Laboratory Tests Test 01/08/21 11:40 01/08/21 13:15 01/08/21 16:45 01/08/21 20:00 Glucose (Fingerstick) 170 mg/dL (70-99) 190 mg/dL (70-99) O2 Saturation 90 % (92-99) Arterial Blood pH 7.29 (7.35-7.45) Arterial Blood pCO2 at Patient Temp 51 mmHg (35-46) Arterial Blood pO2 at Patient Temp 65 mmHg (65-108) Arterial Blood HCO3 24 mmol/L (21-28) Arterial Blood Base Excess -3 mmol/L (-3-3) FiO2 2l nc White Blood Count 15.2 x10^3/uL (4.0-11.0) Red Blood Count 4.14 x10^6/uL (3.50-5.40) Hemoglobin 11.1 g/dL (12.0-15.5) Hematocrit 35.5 % (36.0-47.0) Mean Corpuscular Volume 86 fL (79-100) Mean Corpuscular Hemoglobin 27 pg (25-35) Mean Corpuscular Hemoglobin Concent 31 g/dL (31-37) Red Cell Distribution Width 14.3 % (11.5-14.5) Platelet Count 241 x10^3/uL (140-400) Neutrophils (%) (Auto) 88 % (31-73) Lymphocytes (%) (Auto) 8 % (24-48) Monocytes (%) (Auto) 4 % (0-9) Eosinophils (%) (Auto) 0 % (0-3) Basophils (%) (Auto) 0 % (0-3) Neutrophils # (Auto) 13.3 x10^3/uL (1.8-7.7) Lymphocytes # (Auto) 1.2 x10^3/uL (1.0-4.8) Monocytes # (Auto) 0.6 x10^3/uL (0.0-1.1) Eosinophils # (Auto) 0.0 x10^3/uL (0.0-0.7) Basophils # (Auto) 0.0 x10^3/uL (0.0-0.2) Sodium Level 140 mmol/L (136-145) Potassium Level 4.8 mmol/L (3.5-5.1) Chloride Level 100 mmol/L (98-107) Carbon Dioxide Level 25 mmol/L (21-32) Anion Gap 15 (6-14) Blood Urea Nitrogen 75 mg/dL (7-20) Creatinine 3.7 mg/dL (0.6-1.0) Estimated GFR (Cockcroft-Gault) 11.8 Glucose Level 186 mg/dL (70-99) Calcium Level 8.3 mg/dL (8.5-10.1) Magnesium Level 2.5 mg/dL (1.8-2.4) Test 01/09/21 03:30 01/09/21 07:45 01/09/21 18:28 01/10/21 00:33 White Blood Count 13.5 x10^3/uL (4.0-11.0) Red Blood Count 3.89 x10^6/uL (3.50-5.40) Hemoglobin 10.3 g/dL (12.0-15.5) Hematocrit 32.3 % (36.0-47.0) Mean Corpuscular Volume 83 fL (79-100) Mean Corpuscular Hemoglobin 27 pg (25-35) Mean Corpuscular Hemoglobin Concent 32 g/dL (31-37) Red Cell Distribution Width 14.2 % (11.5-14.5) Platelet Count 225 x10^3/uL (140-400) Neutrophils (%) (Auto) 88 % (31-73) Lymphocytes (%) (Auto) 5 % (24-48) Monocytes (%) (Auto) 7 % (0-9) Eosinophils (%) (Auto) 0 % (0-3) Basophils (%) (Auto) 0 % (0-3) Neutrophils # (Auto) 11.8 x10^3/uL (1.8-7.7) Lymphocytes # (Auto) 0.7 x10^3/uL (1.0-4.8) Monocytes # (Auto) 0.9 x10^3/uL (0.0-1.1) Eosinophils # (Auto) 0.0 x10^3/uL (0.0-0.7) Basophils # (Auto) 0.0 x10^3/uL (0.0-0.2) Sodium Level 140 mmol/L (136-145) Potassium Level 4.5 mmol/L (3.5-5.1) Chloride Level 101 mmol/L (98-107) Carbon Dioxide Level 27 mmol/L (21-32) Anion Gap 12 (6-14) Blood Urea Nitrogen 80 mg/dL (7-20) Creatinine 3.6 mg/dL (0.6-1.0) Estimated GFR (Cockcroft-Gault) 12.2 Glucose Level 215 mg/dL (70-99) Calcium Level 7.8 mg/dL (8.5-10.1) O2 Saturation 94 % (92-99) Arterial Blood pH 7.62 (7.35-7.45) Arterial Blood pCO2 at Patient Temp 25 mmHg (35-46) Arterial Blood pO2 at Patient Temp 69 mmHg (65-108) Arterial Blood HCO3 25 mmol/L (21-28) Arterial Blood Base Excess 5 mmol/L (-3-3) FiO2 50/vent Glucose (Fingerstick) 173 mg/dL (70-99) 187 mg/dL (70-99) Test 01/10/21 04:05 01/10/21 05:57 White Blood Count 15.5 x10^3/uL (4.0-11.0) Red Blood Count 4.26 x10^6/uL (3.50-5.40) Hemoglobin 11.2 g/dL (12.0-15.5) Hematocrit 35.6 % (36.0-47.0) Mean Corpuscular Volume 84 fL (79-100) Mean Corpuscular Hemoglobin 26 pg (25-35) Mean Corpuscular Hemoglobin Concent 32 g/dL (31-37) Red Cell Distribution Width 14.3 % (11.5-14.5) Platelet Count 208 x10^3/uL (140-400) Neutrophils (%) (Auto) 86 % (31-73) Lymphocytes (%) (Auto) 4 % (24-48) Monocytes (%) (Auto) 10 % (0-9) Eosinophils (%) (Auto) 0 % (0-3) Basophils (%) (Auto) 0 % (0-3) Neutrophils # (Auto) 13.3 x10^3/uL (1.8-7.7) Lymphocytes # (Auto) 0.6 x10^3/uL (1.0-4.8) Monocytes # (Auto) 1.5 x10^3/uL (0.0-1.1) Eosinophils # (Auto) 0.0 x10^3/uL (0.0-0.7) Basophils # (Auto) 0.0 x10^3/uL (0.0-0.2) Sodium Level 141 mmol/L (136-145) Potassium Level 4.0 mmol/L (3.5-5.1) Chloride Level 103 mmol/L (98-107) Carbon Dioxide Level 29 mmol/L (21-32) Anion Gap 9 (6-14) Blood Urea Nitrogen 92 mg/dL (7-20) Creatinine 3.6 mg/dL (0.6-1.0) Estimated GFR (Cockcroft-Gault) 12.2 Glucose Level 193 mg/dL (70-99) Calcium Level 8.1 mg/dL (8.5-10.1) Troponin I High Sensitivity 07406 ng/L (4-50) Glucose (Fingerstick) 186 mg/dL (70-99) Laboratory Tests Test 01/09/21 18:28 01/10/21 00:33 01/10/21 04:05 01/10/21 05:57 Glucose (Fingerstick) 173 mg/dL (70-99) 187 mg/dL (70-99) 186 mg/dL (70-99) White Blood Count 15.5 x10^3/uL (4.0-11.0) Red Blood Count 4.26 x10^6/uL (3.50-5.40) Hemoglobin 11.2 g/dL (12.0-15.5) Hematocrit 35.6 % (36.0-47.0) Mean Corpuscular Volume 84 fL (79-100) Mean Corpuscular Hemoglobin 26 pg (25-35) Mean Corpuscular Hemoglobin Concent 32 g/dL (31-37) Red Cell Distribution Width 14.3 % (11.5-14.5) Platelet Count 208 x10^3/uL (140-400) Neutrophils (%) (Auto) 86 % (31-73) Lymphocytes (%) (Auto) 4 % (24-48) Monocytes (%) (Auto) 10 % (0-9) Eosinophils (%) (Auto) 0 % (0-3) Basophils (%) (Auto) 0 % (0-3) Neutrophils # (Auto) 13.3 x10^3/uL (1.8-7.7) Lymphocytes # (Auto) 0.6 x10^3/uL (1.0-4.8) Monocytes # (Auto) 1.5 x10^3/uL (0.0-1.1) Eosinophils # (Auto) 0.0 x10^3/uL (0.0-0.7) Basophils # (Auto) 0.0 x10^3/uL (0.0-0.2) Sodium Level 141 mmol/L (136-145) Potassium Level 4.0 mmol/L (3.5-5.1) Chloride Level 103 mmol/L (98-107) Carbon Dioxide Level 29 mmol/L (21-32) Anion Gap 9 (6-14) Blood Urea Nitrogen 92 mg/dL (7-20) Creatinine 3.6 mg/dL (0.6-1.0) Estimated GFR (Cockcroft-Gault) 12.2 Glucose Level 193 mg/dL (70-99) Calcium Level 8.1 mg/dL (8.5-10.1) Troponin I High Sensitivity 82919 ng/L (4-50) Microbiology 01/05/21 Blood Culture - Preliminary, Resulted NO GROWTH AFTER 4 DAYS 01/05/21 Urine Culture - Final, Complete 01/05/21 Antimicrobic Susceptibility - Final, Complete Medications Current Medications Furosemide (Lasix) 80 mg 1X ONCE IVP Last administered on 01/05/21at 09:21; Start 01/05/21 at 09:00; Stop 01/05/21 at 09:01; Status DC Nitroglycerin (Nitrostat) 0.4 mg PRN Q5MIN PRN SL CHEST PAIN Last administered on 01/08/21at 03:16; Start 01/05/21 at 09:30 Ceftriaxone Sodium (Rocephin) 1 gm 1X ONCE IVP Last administered on 01/05/21at 12:41; Start 01/05/21 at 12:00; Stop 01/05/21 at 12:09; Status DC Aspirin (Raulito Aspirin) 325 mg DAILY PO Last administered on 01/09/21at 08:12; Start 01/05/21 at 12:00 Insulin Human Lispro (HumaLOG) 4 units TIDAC SQ Last administered on 01/08/21at 08:25; Start 01/05/21 at 16:30; Stop 01/09/21 at 13:18; Status DC Insulin Glargine (Lantus Syringe) 12 unit QHS SQ Last administered on 01/08/21at 21:14; Start 01/05/21 at 21:00; Stop 01/09/21 at 13:18; Status DC Insulin Human Lispro (HumaLOG) 0-8 UNITS TIDWMEALS SQ Last administered on 01/05/21at 23:41; Start 01/05/21 at 17:00; Stop 01/09/21 at 13:18; Status DC Ondansetron HCl (Zofran Odt) 4 mg PRN Q6HRS PRN PO NAUSEA/VOMITING Last administered on 01/06/21at 23:20; Start 01/05/21 at 11:45 Ondansetron HCl (Zofran Odt) 4 mg TIDAC PO Last administered on 01/08/21at 08:16; Start 01/05/21 at 12:00 Levothyroxine Sodium (Synthroid) 150 mcg DAILY06 PO Last administered on 01/10/21at 05:41; Start 01/06/21 at 06:00 Furosemide (Lasix) 40 mg BID92 PO Last administered on 01/06/21at 08:38; Start 01/05/21 at 14:00; Stop 01/06/21 at 10:42; Status DC Metolazone (Zaroxolyn) 2.5 mg MoWeFr@0900 PO Last administered on 01/08/21at 08:17; Start 01/06/21 at 09:00; Stop 01/08/21 at 12:26; Status DC Potassium Chloride (Klor-Con) 20 meq BID PO Last administered on 01/06/21at 08:38; Start 01/05/21 at 21:00; Stop 01/06/21 at 10:42; Status DC Metoprolol Succinate (Toprol Xl) 50 mg DAILY PO Last administered on 01/08/21at 08:17; Start 01/06/21 at 09:00 Amlodipine Besylate (Norvasc) 5 mg DAILY PO Last administered on 01/08/21at 08:18; Start 01/06/21 at 09:00; Stop 01/09/21 at 13:18; Status DC Senna/Docusate Sodium (Senna Plus) 2 tab QHS PO Last administered on 01/09/21at 21:30; Start 01/05/21 at 21:00 Allopurinol (Zyloprim) 100 mg DAILY PO Last administered on 01/09/21at 08:13; Start 01/06/21 at 09:00 Atorvastatin Calcium (Lipitor) 40 mg QHS PO Last administered on 01/09/21at 21:30; Start 01/05/21 at 21:00 Paroxetine HCl (Paxil) 20 mg DAILY PO Last administered on 01/09/21at 08:12; Start 01/06/21 at 09:00 Piperacillin Sod/ Tazobactam Sod 3.375 gm/Sodium Chloride 50 ml @ 100 mls/hr Q6HRS IV Last administered on 01/06/21at 06:08; Start 01/05/21 at 12:00; Stop 01/06/21 at 10:42; Status DC Heparin Sodium (Porcine) (Heparin Sodium) 5,000 unit Q12HR SQ ; Start 01/05/21 at 21:00; Stop 01/05/21 at 18:35; Status DC Famotidine (Pepcid) 20 mg QHS PO Last administered on 01/09/21at 21:30; Start 01/05/21 at 21:00 Acetaminophen (Tylenol) 650 mg PRN Q6HRS PRN PO MILD PAIN / TEMP > 100.3'F Last administered on 01/10/21at 03:59; Start 01/05/21 at 12:15 Heparin Sodium/ Dextrose 250 ml @ 13.32 mls/ hr CONT PRN IV PER PROTOCOL Last administered on 01/06/21at 17:00; Start 01/05/21 at 19:00; Stop 01/07/21 at 14:35; Status DC Heparin Sodium (Porcine) (Heparin Sodium) 2,800 unit PRN Q6HRS PRN IV FOR UFH LEVEL LESS THAN 0.2 Last administered on 01/06/21at 21:30; Start 01/05/21 at 19:00; Stop 01/07/21 at 14:35; Status DC Perflutren Protein Type A Microsphe (Optison) 0.66 mg STK-MED ONCE IV ; Start 01/06/21 at 07:20; Stop 01/06/21 at 07:20; Status DC Perflutren Protein Type A Microsphe (Optison) 0.66 mg 1X ONCE IV ; Start 01/06/21 at 08:15; Stop 01/06/21 at 08:16; Status DC Piperacillin Sod/ Tazobactam Sod 2.25 gm/Sodium Chloride 50 ml @ 100 mls/hr Q6HRS IV Last administered on 01/08/21at 05:17; Start 01/06/21 at 12:00; Stop 01/08/21 at 10:40; Status DC Potassium Chloride (Klor-Con) 20 meq TID PO Last administered on 01/07/21at 08:44; Start 01/06/21 at 14:00; Stop 01/07/21 at 10:42; Status DC Furosemide (Lasix) 40 mg BID92 IVP Last administered on 01/07/21at 08:46; Start 01/06/21 at 14:00; Stop 01/07/21 at 10:42; Status DC Potassium Chloride (Klor-Con) 20 meq 1X ONCE PO Last administered on 01/06/21at 11:19; Start 01/06/21 at 11:30; Stop 01/06/21 at 11:31; Status DC Lactobacillus Rhamnosus (Culturelle) 1 cap BID PO Last administered on 01/09/21at 08:13; Start 01/06/21 at 21:00 Perflutren Protein Type A Microsphe (Optison) 0.66 mg STK-MED ONCE IV ; Start 01/06/21 at 08:00; Stop 01/07/21 at 09:00; Status DC Potassium Chloride (Klor-Con) 20 meq BID PO Last administered on 01/08/21at 08:16; Start 01/07/21 at 21:00; Stop 01/08/21 at 12:26; Status DC Furosemide (Lasix) 40 mg DAILY PO Last administered on 01/08/21at 08:16; Start 01/08/21 at 09:00; Stop 01/08/21 at 12:26; Status DC Potassium Chloride (Klor-Con) 20 meq 1X ONCE PO Last administered on 01/07/21at 11:07; Start 01/07/21 at 10:45; Stop 01/07/21 at 10:46; Status DC Bisacodyl (Dulcolax Supp) 10 mg PRN DAILY PRN IA CONSTIPATION Last administered on 01/08/21at 02:20; Start 01/08/21 at 02:15 Dobutamine HCl/ Dextrose 250 ml @ 17.43 mls/ hr CONT PRN IV SEE I/O RECORD Last administered on 01/08/21at 10:20; Start 01/08/21 at 10:00 Ceftriaxone Sodium (Rocephin) 1 gm Q24H IVP Last administered on 01/08/21at 11:06; Start 01/08/21 at 11:00; Stop 01/09/21 at 10:15; Status DC Heparin Sodium (Porcine) (Heparin Sodium) 5,000 unit Q12HR SQ Last administered on 01/09/21at 22:01; Start 01/08/21 at 13:00; Stop 01/10/21 at 05:35; Status DC Acetaminophen/ Hydrocodone Bitart (Lortab 5/325) 1 tab PRN Q4HRS PRN PO PAIN; Start 01/08/21 at 13:45; Status UNV Norepinephrine Bitartrate 8 mg/ Dextrose 258 ml @ 22.485 mls/ hr CONT PRN IV PER PROTOCOL Last administered on 01/09/21at 11:05; Start 01/08/21 at 19:00 Norepinephrine Bitartrate 8 mg/ Dextrose 258 ml @ 22.485 mls/ hr CONT PRN IV PER PROTOCOL; Start 01/08/21 at 19:00; Status UNV Fentanyl Citrate 30 ml @ 0 mls/hr CONT PRN IV SEE PROTOCOL Last administered on 01/10/21at 01:05; Start 01/08/21 at 19:00 Midazolam HCl 100 ml @ 1 mls/hr CONT PRN IV SEE PROTOCOL Last administered on 01/10/21at 05:58; Start 01/08/21 at 19:00 Propofol 100 ml @ 0.1 mls/hr CONT PRN IV PER PROTOCOL; Start 01/08/21 at 19:00 Chlorhexidine Gluconate (Peridex) 15 ml BID MM Last administered on 01/09/21at 21:30; Start 01/08/21 at 21:00 Glycerin/ Hypromellose/ Polyethylene (Artificial Tears) 1 drop PRN Q1HR PRN OU DRY EYE; Start 01/08/21 at 19:00 Dexmedetomidine HCl 400 mcg/ Sodium Chloride 100 ml @ 5.8 mls/hr CONT PRN IV PER PROTOCOL; Start 01/08/21 at 19:00 Sodium Chloride 500 ml @ 500 mls/hr 1X PRN PRN IV SEE COMMENTS; Start 01/08/21 at 19:00 Atropine Sulfate (ATROPINE 0.5mg SYRINGE) 0.5 mg PRN Q5MIN PRN IV SEE COMMENTS; Start 01/08/21 at 19:00 Ringer's Solution 1,000 ml @ 100 mls/hr Q10H IV Last administered on 01/08/21at 21:08; Start 01/08/21 at 20:15 Fentanyl Citrate (Fentanyl 2ml Vial) 100 mcg STK-MED ONCE .ROUTE ; Start 01/08/21 at 20:42; Stop 01/08/21 at 20:42; Status DC Piperacillin Sod/ Tazobactam Sod 2.25 gm/Sodium Chloride 50 ml @ 100 mls/hr Q6HRS IV Last administered on 01/10/21at 05:41; Start 01/09/21 at 12:00 Insulin Human Lispro (HumaLOG) 0-8 UNITS BG 400-49... Q6HRS SQ ; Start 01/09/21 at 18:00 Heparin Sodium/ Dextrose 250 ml @ 10 mls/hr CONT PRN IV PER PROTOCOL Last administered on 01/10/21at 05:42; Start 01/10/21 at 05:30 Heparin Sodium (Porcine) (Heparin Sodium) 2,850 unit PRN Q6HRS PRN IV FOR UFH LEVEL LESS THAN 0.2; Start 01/10/21 at 05:30 Info (Anti-Coagulation Monitoring By Pharmacy) 1 each PRN DAILY PRN MC PER PROTOCOL Last administered on 01/10/21at 05:44; Start 01/10/21 at 05:45 Active Scripts Active Cephalexin 500 Mg Tablet 1 Tab PO TID 7 Days Thera-M Tablet (Multivits,Ca,Minerals/Iron/Fa) 1 Each Tablet 1 Tab PO DAILY Vitamin C (Ascorbic Acid) 500 Mg Tablet 500 Mg PO DAILY Lantus (Insulin Glargine,Hum.rec.anlog) 100 Unit/1 Ml Vial 12 Unit SQ QHS Metolazone 2.5 Mg Tablet 2.5 Mg PO QMWF Klor-Con M20 (Potassium Chloride) 20 Meq Tab.er.prt 20 Meq PO BID Toprol XL (Metoprolol Succinate) 50 Mg Tab.er.24h 50 Mg PO DAILY Furosemide 40 Mg Tablet 40 Mg PO BID Amlodipine Besylate 5 Mg Tablet 5 Mg PO DAILY Atorvastatin Calcium 40 Mg Tablet 40 Mg PO QHS Admelog (Insulin Lispro) 100 Unit/1 Ml Vial 6 Units SQ TIDAC hold if blood sugar less than 90 before a meal Nyamyc (Nystatin) 15 Gm Powder 1 Renee TP BID Stool Soft-Stimulant Lax Tab (Sennosides/Docusate Sodium) 1 Each Tablet 2 Tab PO DAILY Feosol (Ferrous Sulfate) 325 Mg Tablet 325 Mg PO QODAY Synthroid (Levothyroxine Sodium) 150 Mcg Tablet 150 Mcg PO DAILY06 Allopurinol 100 Mg Tablet 100 Mg PO DAILY Paroxetine Hcl 20 Mg Tablet 20 Mg PO DAILY Reported Aspirin 81 Mg Tab.chew 81 Mg PO HS Tylenol (Acetaminophen) 325 Mg Tablet 650 Mg PO PRN Q4HRS Vitals/I & O Vital Sign - Last 24 Hours 01/09/21 01/09/21 01/09/21 01/09/21 09:00 09:29 09:33 10:00 Pulse 80 79 Resp 20 14 20 B/P (MAP) 90/49 94/45 Pulse Ox 99 98 99 O2 Delivery Ventilator Ventilator Ventilator Ventilator 01/09/21 01/09/21 01/09/21 01/09/21 10:03 10:50 11:05 11:05 Pulse 79 79 Resp 20 20 B/P (MAP) 86/46 90/49 Pulse Ox 99 99 99 97 O2 Delivery Ventilator Ventilator Ventilator Ventilator 01/09/21 01/09/21 01/09/21 01/09/21 11:20 12:00 12:00 13:00 Temp 99.0 99.0 Pulse 79 79 79 Resp 20 20 20 B/P (MAP) 108/64 129/74 128/76 Pulse Ox 99 99 99 O2 Delivery Ventilator Ventilator Mechanical Ventilator Ventilator 01/09/21 01/09/21 01/09/21 01/09/21 13:15 13:18 14:00 15:00 Pulse 76 79 79 Resp 20 20 20 B/P (MAP) 126/74 136/78 133/70 Pulse Ox 99 94 99 99 O2 Delivery Ventilator Ventilator Ventilator Ventilator 01/09/21 01/09/21 01/09/21 01/09/21 15:16 16:00 16:00 16:15 Pulse 79 79 Resp 20 20 B/P (MAP) 134/69 136/64 Pulse Ox 94 99 99 O2 Delivery Ventilator Mechanical Ventilator Ventilator Ventilator 01/09/21 01/09/21 01/09/21 01/09/21 17:00 17:05 17:45 18:00 Temp 98.6 98.6 Pulse 79 79 Resp 20 14 20 B/P (MAP) 131/76 136/76 Pulse Ox 99 93 99 99 O2 Delivery Ventilator Ventilator Ventilator Ventilator 01/09/21 01/09/21 01/09/21 01/09/21 18:15 19:00 20:00 20:00 Temp 99.5 99.5 Pulse 77 76 Resp 12 12 B/P (MAP) 134/76 134/74 Pulse Ox 99 95 95 O2 Delivery Ventilator Ventilator Ventilator Mechanical Ventilator 01/09/21 01/09/21 01/09/21 01/09/21 20:15 20:35 21:00 22:00 Pulse 78 78 80 Resp 12 12 12 B/P (MAP) 109/58 117/53 111/62 Pulse Ox 95 95 95 94 O2 Delivery Ventilator Ventilator Ventilator Ventilator 01/09/21 01/09/21 01/10/21 01/10/21 22:20 23:00 00:00 00:00 Temp 99.8 99.8 Pulse 82 80 Resp 12 12 B/P (MAP) 112/61 118/66 Pulse Ox 95 95 93 O2 Delivery Ventilator Ventilator Ventilator Mechanical Ventilator 01/10/21 01/10/21 01/10/21 01/10/21 00:20 01:00 02:00 03:00 Pulse 82 82 84 Resp 12 12 12 B/P (MAP) 123/66 115/67 122/67 Pulse Ox 95 94 94 94 O2 Delivery Ventilator Ventilator Ventilator Ventilator 01/10/21 01/10/21 01/10/2121 03:15 03:20 04:00 04:00 Temp 101.0 101.0 Pulse 82 88 Resp 12 12 B/P (MAP) 116/67 110/68 Pulse Ox 95 94 93 O2 Delivery Ventilator Ventilator Mechanical Ventilator Ventilator 01/10/21 01/10/21 01/10/21 01/10/21 05:00 05:36 06:00 07:00 Pulse 80 74 73 Resp 12 12 11 B/P (MAP) 106/60 107/54 104/57 Pulse Ox 95 96 97 97 O2 Delivery Ventilator Ventilator Ventilator Ventilator 01/10/21 01/10/21 07:49 08:00 Temp 98.9 98.9 Pulse 72 Resp 13 B/P (MAP) 113/58 Pulse Ox 98 97 O2 Delivery Ventilator Ventilator Intake and Output 01/09/21 01/09/21 01/10/21 15:00 23:00 07:00 Intake Total 462 ml 1159 ml Output Total 160 ml 330 ml 375 ml Balance -160 ml 132 ml 784 ml Justifications for Admission Other Justification TERE ALLISON MD Jan 10, 2021 08:41
[2021-01-10] MEDS ORDERED: FUROSEMIDE 40 MG/4 ML VIAL. IVP ONE (08:45)
[2021-01-10] MEDS: CHLORHEXIDINE 0.12% 15 ML MOUTHWASH. MM SCH ×2 (09:00→20:00)
[2021-01-10] MEDS: ASPIRIN 325 MG TABLET PO SCH ×3 (09:00→09:19)
--- NOTE | 2021-01-10 09:06 | PDOC ---
RANDY TRIVEDI PEDIATRIC SOCIAL WORKER 01/10/21 0906: CARDIO Progress Notes Date and Time Date of Service 01/10/2021 Time of Evaluation 0845 Subjective Subjective: Other (intubated ) Vitals Vitals Vital Signs Date Time Temp Pulse Resp B/P (MAP) Pulse Ox O2 Delivery O2 Flow Rate FiO2 01/10/21 08:56 97 2.0 01/10/21 08:00 Mechanical Ventilator 01/10/21 08:00 98.9 72 13 113/58 98.9 Weight Weight [ ] Input and Output Intake and Output Intake and Output 01/10/21 07:00 Intake Total 1621 ml Output Total 865 ml Balance 756 ml IV Total 780 ml Tube Feeding 661 ml Other 180 ml Output Urine Total 865 ml Laboratory Labs Laboratory Tests Test 01/09/21 18:28 01/10/21 00:33 01/10/21 04:05 01/10/21 05:57 Glucose (Fingerstick) 173 mg/dL (70-99) 187 mg/dL (70-99) 186 mg/dL (70-99) White Blood Count 15.5 x10^3/uL (4.0-11.0) Red Blood Count 4.26 x10^6/uL (3.50-5.40) Hemoglobin 11.2 g/dL (12.0-15.5) Hematocrit 35.6 % (36.0-47.0) Mean Corpuscular Volume 84 fL (79-100) Mean Corpuscular Hemoglobin 26 pg (25-35) Mean Corpuscular Hemoglobin Concent 32 g/dL (31-37) Red Cell Distribution Width 14.3 % (11.5-14.5) Platelet Count 208 x10^3/uL (140-400) Neutrophils (%) (Auto) 86 % (31-73) Lymphocytes (%) (Auto) 4 % (24-48) Monocytes (%) (Auto) 10 % (0-9) Eosinophils (%) (Auto) 0 % (0-3) Basophils (%) (Auto) 0 % (0-3) Neutrophils # (Auto) 13.3 x10^3/uL (1.8-7.7) Lymphocytes # (Auto) 0.6 x10^3/uL (1.0-4.8) Monocytes # (Auto) 1.5 x10^3/uL (0.0-1.1) Eosinophils # (Auto) 0.0 x10^3/uL (0.0-0.7) Basophils # (Auto) 0.0 x10^3/uL (0.0-0.2) Sodium Level 141 mmol/L (136-145) Potassium Level 4.0 mmol/L (3.5-5.1) Chloride Level 103 mmol/L (98-107) Carbon Dioxide Level 29 mmol/L (21-32) Anion Gap 9 (6-14) Blood Urea Nitrogen 92 mg/dL (7-20) Creatinine 3.6 mg/dL (0.6-1.0) Estimated GFR (Cockcroft-Gault) 12.2 Glucose Level 193 mg/dL (70-99) Calcium Level 8.1 mg/dL (8.5-10.1) Troponin I High Sensitivity 81135 ng/L (4-50) Microbiology Micro Microbiology 01/05/21 Blood Culture - Preliminary, Resulted NO GROWTH AFTER 4 DAYS 01/05/21 Urine Culture - Final, Complete 01/05/21 Antimicrobic Susceptibility - Final, Complete Physical Exam HEENT: Neck Supple W Full Motion Chest: Symmetric LUNGS: Other (MV) Heart: RRR (SR) Abdomen: Soft N/T, Other (obese ) Extremities: Other (left BKA) Neurology: other (sedated ) Assessment Assessment 1. Acute on chronic systolic CHF; echo 10/26 with preserved LV systolic function. Echo this morning with LVEF 25% with pattern suggestive Takotsubo's cardiomyopathy. S/p IV diuresis. 2. Acute respiratory failure secondary to CHF 3. PEA arrest; s/p intubation. No VT/VF 4. NSTEMI: multifactorial with multiorgan failure 5. CAD; recent cath in May 2020 showed 60% stenosis involving LAD with negative IFR and 100% ONCOLOGY NURSE involving moderate caliber obtuse marginal branch of left circumflex artery with left to left collaterals. 6. NILDA on CKD; Cr ^ 3.7. marginal UOP. off dobutamine 7. Leukocytosis, UTI. cultures with E coli. ID following 8. Hypertension: presently hypotensive requiring pressor support 9. Hyperlipidemia: statin 10. Hypothyroidism: on levothyroxine 11. Diabetes, II 12. PAD s/p left BKA 13. RLE cellulitis; antibiotics as per IM 14. PAFIB; maintaining SR Recommendations Needs fluid offloading. Lasix. Continue heprain drip. Awaiting family in regards to goals of care. poor prognosis, possible comfort care. On Hospice prior to admission and presently full code. Family to discussed goals of care, proceeding with initiation of HD Avoid nephrotoxins, follow renal recs Secondary prevention; ASA, statin, BB Supportive care Justicifation of Admission Dx: Justifications for Admission: Justification of Admission Dx: N/A JAY SMYTH MD 01/10/21 1544: CARDIO Progress Notes Assessment Assessment Patient seen and examined. Agree with COMMERCIAL ATTORNEY's assessment and plan. Patient remains intubated for acute respiratory failure 2D echo showed LVEF 25%, pattern consistent with Takotsubo's cardiomyopathy. Continue conservative management for non-STEMI for now. Continue heparin infusion. Recent cardiac catheterization showed 60% stenosis involving LAD that was physiologically insignificant based on IFR measurement. Continue management of acute renal insufficiency per nephrology team RANDY TRIVEDI APRN Jan 10, 2021 09:06 JAY SMYTH MD Jan 10, 2021 15:44
[2021-01-10 09:11] LABS: HCO3 ABG 24 mmol/L (21-28); PCO2 ABG 37 mmHg (35-46); PO2 ABG 173 mmHg (65-108); SAT O2 ABG 99 % (92-99)
[2021-01-10 09:12] LABS: FIO2 ABG 100/VENT
[2021-01-10] MEDS: ALLOPURINOL 100 MG TABLET. PO SCH (09:15)
[2021-01-10] MEDS: LACTOBACILLUS RHAMNOSUS GG 1 CAPSULE. PO SCH ×2 (09:15→20:01)
[2021-01-10] MEDS: METOPROLOL SUCC 24HR ER 50 MG TAB.ER.24H. PO SCH (09:15)
[2021-01-10] MEDS: PARoxetine 20 MG TABLET PO SCH (09:15)
[2021-01-10] MEDS: ASPIRIN CHEWABLE 81 MG TABLET. PO SCH (09:23)
--- NOTE | 2021-01-10 09:45 | PDOC ---
Infectious Disease Note Subjective: Subjective Remains intubated/sedated Febrile last p.m. Discussed with nursing staff Vital Signs: Vital Signs Vital Signs Date Time Temp Pulse Resp B/P (MAP) Pulse Ox O2 Delivery O2 Flow Rate FiO2 01/10/21 09:15 72 113/58 01/10/21 09:00 12 98 Ventilator 01/10/21 08:56 2.0 01/10/21 08:00 98.9 98.9 Physical Exam: PHYSICAL EXAM GENERAL: Intubated\sedated HEENT: Normocephalic, atraumatic. ETT present LUNGS: Decreased breath sounds at the bases, some crackles. CARDIOVASCULAR: S1, S2. No murmurs. ABDOMEN: Soft, nontender, nondistended, obese. Bowel sounds present. EXTREMITIES: Left BKA prosthesis in place, taken down. Stump looks healthy, just dry skin. Right lower extremity, trace edema, mild erythema which is at baseline, no warmth, no weeping lesions, much improved than last admission., Dr polanco anterior acevedo wound not infected DERMATOLOGIC: Warm, dry. No generalized rash except for above. NEUROLOGIC: Intubated GENITOURINARY: Cifuentes in place, Medications: Inpatient Meds: Medications reviewed. Labs: Lab Laboratory Tests Test 01/09/21 18:28 01/10/21 00:33 01/10/21 04:05 01/10/21 05:57 Glucose (Fingerstick) 173 mg/dL (70-99) 187 mg/dL (70-99) 186 mg/dL (70-99) White Blood Count 15.5 x10^3/uL (4.0-11.0) Red Blood Count 4.26 x10^6/uL (3.50-5.40) Hemoglobin 11.2 g/dL (12.0-15.5) Hematocrit 35.6 % (36.0-47.0) Mean Corpuscular Volume 84 fL (79-100) Mean Corpuscular Hemoglobin 26 pg (25-35) Mean Corpuscular Hemoglobin Concent 32 g/dL (31-37) Red Cell Distribution Width 14.3 % (11.5-14.5) Platelet Count 208 x10^3/uL (140-400) Neutrophils (%) (Auto) 86 % (31-73) Lymphocytes (%) (Auto) 4 % (24-48) Monocytes (%) (Auto) 10 % (0-9) Eosinophils (%) (Auto) 0 % (0-3) Basophils (%) (Auto) 0 % (0-3) Neutrophils # (Auto) 13.3 x10^3/uL (1.8-7.7) Lymphocytes # (Auto) 0.6 x10^3/uL (1.0-4.8) Monocytes # (Auto) 1.5 x10^3/uL (0.0-1.1) Eosinophils # (Auto) 0.0 x10^3/uL (0.0-0.7) Basophils # (Auto) 0.0 x10^3/uL (0.0-0.2) Sodium Level 141 mmol/L (136-145) Potassium Level 4.0 mmol/L (3.5-5.1) Chloride Level 103 mmol/L (98-107) Carbon Dioxide Level 29 mmol/L (21-32) Anion Gap 9 (6-14) Blood Urea Nitrogen 92 mg/dL (7-20) Creatinine 3.6 mg/dL (0.6-1.0) Estimated GFR (Cockcroft-Gault) 12.2 Glucose Level 193 mg/dL (70-99) Calcium Level 8.1 mg/dL (8.5-10.1) Troponin I High Sensitivity 21157 ng/L (4-50) Micro RUN DATE: 01/08/21 [facility] LAB *LIVE* PAGE 1 RUN TIME: 827 Specimen Inquiry PATIENT: DIMAS REDMOND ACCT: [id number] LOC: [facility] U: [id number] AGE/SX: 80/F ROOM: [facility] RE01/05/[address]: TERE ALLISON MD : 1940 BED: 1 DIS: STATUS: ADM IN TLOC: SPEC #: [id number] ONEL: 01/05/21 STATUS: COMP REQ #: [id number] RECD: 01/05/[address] [facility] [address]: ARY MURILLO DO SOURCE: VOID ENTR: 01/05/21 [facility] DR: TERE ALLISON MD SPDESC: JOAQUIM LI MD ORDERED: URINE CULTURE Procedure Result URINE CULTURE Final Final >100,000 CFU/ML [ESCHERICHIA COLI] Testing Performed by: [address] [address] For Inquires, the Physician may contact the Microbiology department at [phone] ESCHERICHIA COLI ANTIMICROBIAL SUSCEPTIBILITY Final Comment NEG BIRGIT 56 ESCHERICHIA COLI ANTIBIOTIC RESULT INTERPRETATION AMPICILLIN/SULBACTAM 8/4 S AMIKACIN <=16 S AMPICILLIN >16 R AMOXICILLIN/K CLAVULANATE >16/8 R AZTREONAM <=4 S CEFTRIAXONE <=1 S CEFTAZIDIME <=1 S CEFOTAXIME <=2 S CEFOXITIN <=8 S CEFAZOLIN 8 S CIPROFLOXACIN <=0.25 S CEFEPIME <=2 S CEFUROXIME 8 S CEFTAZIDIME/AVIBACTAM <=4 S ERTAPENEM <=0.5 S NITROFURANTOIN <=32 S GENTAMICIN <=2 S LEVOFLOXACIN <=0.5 S MEROPENEM <=1 S PIPERACILLIN/TAZOBACTAM <=8 S TRIMETHOPRIM/SULFAMETHOXAZOLE <=0.5/9.5 S TETRACYCLINE <=4 S TOBRAMYCIN <=2 S Unless otherwise specified, Testing Performed by: [facility] RUN DATE: 01/08/21 [facility] LAB *LIVE* PAGE 2 RUN TIME: 0828 Specimen Inquiry -- SPEC: [id number] PATIENT: RUYDIMAS A [id number] (Continued) Procedure Result CONTINUED ON NEXT PAGE RUN DATE: 01/08/21 [facility] LAB *LIVE* PAGE 3 RUN TIME: 0828 Specimen Inquiry SPEC: [id number] PATIENT: RUYDIMAS [id number] (Continued) Procedure Result ANTIMICROBIAL SUSCEPTIBILITY Final (continued) [address] [place] [address] For Inquires, the Physician may contact the Microbiology department at [phone] - Blood cultures negative Objective: Assessment: Patient's condition has deteriorated Acute hypoxic respiratory failure status post intubation Asystole status post CODE BLUE January 08, 2021 1. Leukocytosis, 2. E. coli UTI resistant to Augmentin 3. History of extended spectrum beta-lactamase Escherichia coli urinary tract infection in the past. 4. 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 5. Congestive heart failure. 6. Chest pain. 7. Chronic kidney disease. 8. Diabetes mellitus 2. 9. History of left [id number] amputation. Plan: Plan of Care Blood culture, UA, urine culture Continue Zosyn. Add Zyvox Monitor labs and cultures. Continue supportive care. Critically ill Prognosis is very poor Consider comfort measures Discussed with cardiology team Discussed with LADARIUS MARTINEZ MD Jan 10, 2021 09:44
--- NOTE | 2021-01-10 09:57 | PDOC ---
DATE OF SERVICE DATE: 01/10/21 TIME: 09:45 SUBJECTIVE ROS Remains Intubated OBJECTIVE Vital Signs Vital Signs Date Time Temp Pulse Resp B/P (MAP) Pulse Ox O2 Delivery O2 Flow Rate FiO2 01/10/21 09:15 72 113/58 01/10/21 09:00 12 98 Ventilator 01/10/21 08:56 2.0 01/10/21 08:00 98.9 98.9 I & 0 Intake and Output 01/10/21 07:00 Intake Total 1621 ml Output Total 865 ml Balance 756 ml IV Total 780 ml Tube Feeding 661 ml Other 180 ml Output Urine Total 865 ml PHYSICAL EXAM Physical Exam GENERAL: Intubated HEENT: Intubated NECK: Supple. LUNGS: Decreased breath sounds at the bases, CV: S1, S2. No murmurs. ABD: Soft, nontender, , obese. EXT: Left BKA prosthesis in place Right lower extremity, trace edema, DERM: Warm, dry. No generalized rash NEUROLOGIC: Intubated Cifuentes in place, DIAGNOSIS/ASSESSMENT Assessment & Plan NILDA - Suspect ATN , suspect Cardiorenal/ ATN/ Hypotensive, UOP improving , stable renal function . 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 Renal US 04/28 Mildly enlarged kidneys bilaterally . Proteinuria- 24 Hr Ur Pr < 500 mg . Patient didn't follow up with us as OP Acute on chronic systolic CHF; echo 10/26 with preserved LV systolic function.Re cent Echo with LVEF 25% with pattern suggestive Takotsubo's CMP. IV Lasix prn per Cardiology Renal Calculus - chronic , seen on recent CT as well No hydronephrosis Pyuria. 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 Obesity. Anemia: Fe deficiency , SUTTON done in past - SPEP abnormal IgG and IgA, IgM normal, No M spike, K and L elevated , Ratio normal Hx of Coronary artery disease, nonobstructive. 60% LAD 05/26 per cardiac cath Hypertension currently Hypotensive Obstructive sleep apnea. Treated with CPAP. COMMENT/RELEVANT DATA Meds Current Medications Medications (Trade) Dose Ordered Sig/Meagan Start Time Stop Time Status Last Admin Dose Admin Acetaminophen (Tylenol) 650 mg PRN Q6HRS PRN 01/05/21 12:15 01/10/21 03:59 650 MG Acetaminophen/ Hydrocodone Bitart (Lortab 5/325) 1 tab PRN Q4HRS PRN 01/08/21 13:45 UNV Allopurinol (Zyloprim) 100 mg DAILY 01/06/21 09:00 01/10/21 09:15 100 MG Amlodipine Besylate (Norvasc) 5 mg DAILY 01/06/21 09:00 01/09/21 13:18 DC 01/08/21 08:18 5 MG Aspirin (Aspirin Chewable) 81 mg [id number] 01/10/21 09:15 01/10/21 09:23 81 MG Aspirin (Raulito Aspirin) 325 mg DAILY 01/05/21 12:00 01/09/21 08:12 325 MG Atorvastatin Calcium (Lipitor) 40 mg QHS 01/05/21 21:00 01/09/21 21:30 40 MG Atropine Sulfate (ATROPINE 0.5mg SYRINGE) 0.5 mg PRN Q5MIN PRN 01/08/21 19:00 Bisacodyl (Dulcolax Supp) 10 mg PRN DAILY PRN 01/08/21 02:15 01/08/21 02:20 10 MG Ceftriaxone Sodium (Rocephin) 1 gm Q24H 01/08/21 11:00 01/09/21 10:15 DC 01/08/21 11:06 1 GM Chlorhexidine Gluconate (Peridex) 15 ml BID 01/08/21 21:00 01/10/21 09:00 15 ML Dexmedetomidine HCl 400 mcg/ Sodium Chloride 100 ml @ 5.8 mls/hr CONT PRN 01/08/21 19:00 Dobutamine HCl/ Dextrose 250 ml @ 17.43 mls/ hr CONT PRN 01/08/21 10:00 01/08/21 10:20 17.43 MLS/HR Famotidine (Pepcid) 20 mg QHS 01/05/21 21:00 01/09/21 21:30 20 MG Fentanyl Citrate (Fentanyl 2ml Vial) 100 mcg STK-MED ONCE 01/08/21 20:42 01/08/21 20:42 DC Furosemide (Lasix) 40 mg 1X ONCE 01/10/21 08:45 01/10/21 08:46 DC 01/10/21 09:15 40 MG Glycerin/ Hypromellose/ Polyethylene (Artificial Tears) 1 drop PRN Q1HR PRN 01/08/21 19:00 Heparin Sodium (Porcine) (Heparin Sodium) 2,850 unit PRN Q6HRS PRN 01/10/21 05:30 Heparin Sodium/ Dextrose 250 ml @ 10 mls/hr CONT PRN 01/10/21 05:30 01/10/21 05:42 13.717 MLS/HR Info (Anti-Coagulation Monitoring By Pharmacy) 1 each PRN DAILY PRN 01/10/21 05:45 01/10/21 05:44 1 EACH Insulin Glargine (Lantus Syringe) 12 unit QHS 01/05/21 21:00 01/09/21 13:18 DC 01/08/21 21:14 12 UNIT Insulin Human Lispro (HumaLOG) 0-8 UNITS BG 400-49... Q6HRS 01/09/21 18:00 Lactobacillus Rhamnosus (Culturelle) 1 cap BID 01/06/21 21:00 01/10/21 09:15 1 CAP Levothyroxine Sodium (Synthroid) 150 mcg DAILY06 01/06/21 06:00 01/10/21 05:41 150 MCG Metolazone (Zaroxolyn) 2.5 mg MoWeFr@0900 01/06/21 09:00 01/08/21 12:26 DC 01/08/21 08:17 2.5 MG Metoprolol Succinate (Toprol Xl) 50 mg DAILY 01/06/21 09:00 01/10/21 09:15 50 MG Midazolam HCl 100 ml @ 1 mls/hr CONT PRN 01/08/21 19:00 01/10/21 05:58 5 MLS/HR Nitroglycerin (Nitrostat) 0.4 mg PRN Q5MIN PRN 01/05/21 09:30 01/08/21 03:16 0.4 MG Norepinephrine Bitartrate 8 mg/ Dextrose 258 ml @ 22.485 mls/ hr CONT PRN 01/08/21 19:00 UNV Ondansetron HCl (Zofran Odt) 4 mg TIDAC 01/05/21 12:00 01/08/21 08:16 4 MG Paroxetine HCl (Paxil) 20 mg DAILY 01/06/21 09:00 01/10/21 09:15 20 MG Perflutren Protein Type A Microsphe (Optison) 0.66 mg STK-MED ONCE 01/06/21 08:00 01/07/21 09:00 DC Piperacillin Sod/ Tazobactam Sod 2.25 gm/Sodium Chloride 50 ml @ 100 mls/hr Q6HRS 01/09/21 12:00 01/10/21 05:41 100 MLS/HR Piperacillin Sod/ Tazobactam Sod 3.375 gm/Sodium Chloride 50 ml @ 100 mls/hr Q6HRS 01/05/21 12:00 01/06/21 10:42 DC 01/06/21 06:08 100 MLS/HR Potassium Chloride (Klor-Con) 20 meq 1X ONCE 01/07/21 10:45 01/07/21 10:46 DC 01/07/21 11:07 20 MEQ Propofol 100 ml @ 0.1 mls/hr CONT PRN 01/08/21 19:00 Ringer's Solution 1,000 ml @ 100 mls/hr Q10H 01/08/21 20:15 01/10/21 08:42 DC 01/08/21 21:08 100 MLS/HR Senna/Docusate Sodium (Senna Plus) 2 tab QHS 01/05/21 21:00 01/09/21 21:30 2 TAB Sodium Chloride 500 ml @ 500 mls/hr 1X PRN PRN 01/08/21 19:00 Lab Laboratory Tests Test 01/09/21 18:28 01/10/21 00:33 01/10/21 04:05 01/10/21 05:57 Glucose (Fingerstick) 173 mg/dL (70-99) 187 mg/dL (70-99) 186 mg/dL (70-99) White Blood Count 15.5 x10^3/uL (4.0-11.0) Red Blood Count 4.26 x10^6/uL (3.50-5.40) Hemoglobin 11.2 g/dL (12.0-15.5) Hematocrit 35.6 % (36.0-47.0) Mean Corpuscular Volume 84 fL (79-100) Mean Corpuscular Hemoglobin 26 pg (25-35) Mean Corpuscular Hemoglobin Concent 32 g/dL (31-37) Red Cell Distribution Width 14.3 % (11.5-14.5) Platelet Count 208 x10^3/uL (140-400) Neutrophils (%) (Auto) 86 % (31-73) Lymphocytes (%) (Auto) 4 % (24-48) Monocytes (%) (Auto) 10 % (0-9) Eosinophils (%) (Auto) 0 % (0-3) Basophils (%) (Auto) 0 % (0-3) Neutrophils # (Auto) 13.3 x10^3/uL (1.8-7.7) Lymphocytes # (Auto) 0.6 x10^3/uL (1.0-4.8) Monocytes # (Auto) 1.5 x10^3/uL (0.0-1.1) Eosinophils # (Auto) 0.0 x10^3/uL (0.0-0.7) Basophils # (Auto) 0.0 x10^3/uL (0.0-0.2) Sodium Level 141 mmol/L (136-145) Potassium Level 4.0 mmol/L (3.5-5.1) Chloride Level 103 mmol/L (98-107) Carbon Dioxide Level 29 mmol/L (21-32) Anion Gap 9 (6-14) Blood Urea Nitrogen 92 mg/dL (7-20) Creatinine 3.6 mg/dL (0.6-1.0) Estimated GFR (Cockcroft-Gault) 12.2 Glucose Level 193 mg/dL (70-99) Calcium Level 8.1 mg/dL (8.5-10.1) Troponin I High Sensitivity 47448 ng/L (4-50) Results All relevant outside records, renal labs, imaging studies, telemetry/EKG's were reviewed. Justicifation of Admission Dx: Justifications for Admission: Justification of Admission Dx: N/A ISRAEL WHEAT MD Jan 10, 2021 09:57
--- NOTE | 2021-01-10 15:41 | NUR ---
SS following up with discharge planning. SS reviewed pt chart and discussed with pt RN. Pt is currently on the vent at 50%. COVID19 negative. Pt on Fentanyl and Versed. Pt on IV Zosyn and PO Zyvox. Heparin drip. Not stable. DNR now. Pt's family does not want dialysis at this time. Pt's family considering comfort care. SS will continue to follow for discharge planning.
[2021-01-10] MEDS: LINEZOLID 600 MG TABLET PO SCH ×2 (16:54→20:01)
[2021-01-10] MEDS: SENNOSIDES/DOCUSATE 8.6/50MG TABLET. PO SCH (20:00)
[2021-01-10] MEDS: FAMOTIDINE 20 MG TABLET. PO SCH (20:01)
[2021-01-10] MEDS: ATORVASTATIN CALCIUM 40 MG TABLET. PO SCH (20:01)
[2021-01-11] VITALS (24 sets, daily range): BP systolic 91–122; BP diastolic 43–67
[2021-01-11] MEDS: MIDAZOLAM 100mg/100ml NS BAG 100 ML IV PRN (03:51)
--- NOTE | 2021-01-11 05:30 | RAD ---
XR CHEST 1V 01/11/2021 4:51 AM INDICATION: CHF, respiratory failure COMPARISON: 01/10/2021 TECHNIQUE: Portable frontal view of the chest is provided. FINDINGS: The cardiomediastinal silhouette is similar in appearance. Endotracheal tube and nasogastric tube are in similar position. Small bilateral pleural effusions with improving pleural effusion on the right. There is adjacent com pressive atelectasis versus infiltrate. Moderate pulmonary vascular congestion which appears to be im proving. No pneumothorax. No suspicious osseous abnormality. IMPRESSION: Improving aeration of the lungs with decrease in size of now small right pleural effusion with adjace nt compressive atelectasis versus infiltrate. Similar to marginally improved degree of moderate pulmonary vascular congestion. Electronically signed by: Lakia Rain MD (01/11/2021 5:28 AM) ANTHONY
--- NOTE | 2021-01-11 05:46 | PDOC ---
PULMONARY PROGRESS NOTES DATE: 01/11/21 TIME: 05:44 Subjective on vent peep 5 fio2 50%, sedated on versed fentanyl scan ett secretion Vitals Vital Signs Date Time Temp Pulse Resp B/P (MAP) Pulse Ox O2 Delivery O2 Flow Rate FiO2 01/11/21 05:00 71 12 95/47 97 Ventilator 01/11/21 04:00 98.0 98.0 01/10/21 17:40 2.0 Comments on vent sedate ros unable to obtain HEENT: Other (nc at perrl orally intubated nose clear neck no lad no thyromegaly) Lungs: Crackles Cardiovascular: S1, S2 Abdomen: Soft, Non-tender, Other Extremities: Other (Status post left BKA) Skin: Warm Labs Laboratory Tests Test 01/09/21 07:45 01/09/21 18:28 01/10/21 00:33 01/10/21 04:05 O2 Saturation 94 % (92-99) Arterial Blood pH 7.62 (7.35-7.45) Arterial Blood pCO2 at Patient Temp 25 mmHg (35-46) Arterial Blood pO2 at Patient Temp 69 mmHg (65-108) Arterial Blood HCO3 25 mmol/L (21-28) Arterial Blood Base Excess 5 mmol/L (-3-3) FiO2 50/vent Glucose (Fingerstick) 173 mg/dL (70-99) 187 mg/dL (70-99) White Blood Count 15.5 x10^3/uL (4.0-11.0) Red Blood Count 4.26 x10^6/uL (3.50-5.40) Hemoglobin 11.2 g/dL (12.0-15.5) Hematocrit 35.6 % (36.0-47.0) Mean Corpuscular Volume 84 fL (79-100) Mean Corpuscular Hemoglobin 26 pg (25-35) Mean Corpuscular Hemoglobin Concent 32 g/dL (31-37) Red Cell Distribution Width 14.3 % (11.5-14.5) Platelet Count 208 x10^3/uL (140-400) Neutrophils (%) (Auto) 86 % (31-73) Lymphocytes (%) (Auto) 4 % (24-48) Monocytes (%) (Auto) 10 % (0-9) Eosinophils (%) (Auto) 0 % (0-3) Basophils (%) (Auto) 0 % (0-3) Neutrophils # (Auto) 13.3 x10^3/uL (1.8-7.7) Lymphocytes # (Auto) 0.6 x10^3/uL (1.0-4.8) Monocytes # (Auto) 1.5 x10^3/uL (0.0-1.1) Eosinophils # (Auto) 0.0 x10^3/uL (0.0-0.7) Basophils # (Auto) 0.0 x10^3/uL (0.0-0.2) Sodium Level 141 mmol/L (136-145) Potassium Level 4.0 mmol/L (3.5-5.1) Chloride Level 103 mmol/L (98-107) Carbon Dioxide Level 29 mmol/L (21-32) Anion Gap 9 (6-14) Blood Urea Nitrogen 92 mg/dL (7-20) Creatinine 3.6 mg/dL (0.6-1.0) Estimated GFR (Cockcroft-Gault) 12.2 Glucose Level 193 mg/dL (70-99) Calcium Level 8.1 mg/dL (8.5-10.1) Troponin I High Sensitivity 54236 ng/L (4-50) Test 01/10/21 05:57 01/10/21 11:45 01/10/21 13:10 01/10/21 17:25 Glucose (Fingerstick) 186 mg/dL (70-99) 203 mg/dL (70-99) Heparin Anti-Xa Act, Unfractionated 0.12 IU/mL (0.30-0.70) 0.70 IU/mL (0.30-0.70) Test 01/10/21 18:08 01/10/21 23:25 01/10/21 23:34 Glucose (Fingerstick) 177 mg/dL (70-99) 183 mg/dL (70-99) Heparin Anti-Xa Act, Unfractionated 0.58 IU/mL (0.30-0.70) Laboratory Tests Test 01/10/21 05:57 01/10/21 11:45 01/10/21 13:10 01/10/21 17:25 Glucose (Fingerstick) 186 mg/dL (70-99) 203 mg/dL (70-99) Heparin Anti-Xa Act, Unfractionated 0.12 IU/mL (0.30-0.70) 0.70 IU/mL (0.30-0.70) Test 01/10/21 18:08 01/10/21 23:25 01/10/21 23:34 Glucose (Fingerstick) 177 mg/dL (70-99) 183 mg/dL (70-99) Heparin Anti-Xa Act, Unfractionated 0.58 IU/mL (0.30-0.70) Medications Active Scripts Medications Dose Route/Sig Max Daily Dose Days Date Category Dose Instructions Cephalexin 500 Mg Tablet 1 Tab PO TID 7 07/05/20 Rx Thera-M Tablet (Multivits,Ca,Minerals/Iron/Fa) 1 Each Tablet 1 Tab PO DAILY 07/05/20 Rx Vitamin C (Ascorbic Acid) 500 Mg Tablet 500 Mg PO DAILY 07/05/20 Rx Lantus (Insulin Glargine,Hum.rec.anlog) 100 Unit/1 Ml Vial 12 Unit SQ QHS 07/05/20 Rx Metolazone 2.5 Mg Tablet 2.5 Mg PO QMWF 07/05/20 Rx Klor-Con M20 (Potassium Chloride) 20 Meq Tab.er.prt 20 Meq PO BID 07/05/20 Rx Toprol XL (Metoprolol Succinate) 50 Mg Tab.er.24h 50 Mg PO DAILY 07/05/20 Rx Furosemide 40 Mg Tablet 40 Mg PO BID 06/12/20 Rx Amlodipine Besylate 5 Mg Tablet 5 Mg PO DAILY 06/12/20 Rx Atorvastatin Calcium 40 Mg Tablet 40 Mg PO QHS 06/12/20 Rx Admelog (Insulin Lispro) 100 Unit/1 Ml Vial 6 Units SQ TIDAC 06/04/20 Rx hold if blood sugar less than 90 before a meal Nyamyc (Nystatin) 15 Gm Powder 1 Renee TP BID 05/12/20 Rx Stool Soft-Stimulant Lax Tab (Sennosides/Docusate Sodium) 1 Each Tablet 2 Tab PO DAILY 05/12/20 Rx Feosol (Ferrous Sulfate) 325 Mg Tablet 325 Mg PO QODAY 05/12/20 Rx Aspirin 81 Mg Tab.chew 81 Mg PO HS 05/03/20 Reported Synthroid (Levothyroxine Sodium) 150 Mcg Tablet 150 Mcg PO DAILY06 05/21/19 Rx Allopurinol 100 Mg Tablet 100 Mg PO DAILY 05/21/19 Rx Paroxetine Hcl 20 Mg Tablet 20 Mg PO DAILY 05/21/19 Rx Tylenol (Acetaminophen) 325 Mg Tablet 650 Mg PO PRN Q4HRS 05/19/13 Reported Comments cxr reviewed Improving aeration of the lungs with decrease in size of now small right pleural effusion with adjacent compressive atelectasis versus infiltrate. Similar to marginally improved degree of moderate pulmonary vascular congestion. Impression . IMPRESSION: 1. Acute on chronic hypoxemic hypercapnic respiratory failure. 2. Acute on chronic diastolic heart failure. 3. Peripheral arterial disease, status post left knee amputation. 4. Obstructive sleep apnea. 5. Chest pain per Cardiology./Cardiomyopathy ejection fraction 25% 6. Leukocytosis related to urinary tract infection, Escherichia coli. Infectious Disease has been following. 7. Hypothyroidism. 8. Type 2 diabetes. 9. Paroxysmal atrial fibrillation. 10. Status post CODE BLUE 11. Acute renal failure Plan . Updated 01/11 Continue vent support setting reviewed, decrease sedation sbt when alert elevate hob abx per id pepcid hep for prophylaxis Overall prognosis is poor Patient is currently DNR discuss w rn Updated 01/10 Continue current support Discussed case with son yesterday Discussed case with Dr. Rollins yesterday Overall prognosis is poor Patient is currently DNR Updated 01/09 Case discussed with son at the bedside who is the DPOA, I informed him that patient had multiorgan failure, I recommend withdrawing care and allowing natural Patient has advanced directive, did not want to be placed on mechanical support She was on hospice prior to this admission We will continue current support, awaiting family decision for possible comfort care Case discussed with RN and RT Case discussed with Dr. Lara Total cumulative critical care time of 30 minutes with no overlap HARVEY CHAMBERS MD Jan 11, 2021 05:46
[2021-01-11] MEDS: INSULIN LISPRO 300 UNITS/3 ML VIAL. SQ SCH ×4 (05:56→23:39)
[2021-01-11] MEDS: PIPERACILLIN/TAZOBACTAM 2.25 GM in IV NORMAL SALINE 50ML 50 ML IV SCH ×3 (05:56→21:46)
[2021-01-11] MEDS: LEVOTHYROXINE 150 MCG TABLET PO SCH (05:56)
[2021-01-11 06:43] LABS: CALCIUM 8.1 mg/dL (8.5-10.1); CREATININE 3.5 mg/dL (0.6-1.0); GFR 12.6; POTASSIUM 3.1 mmol/L (3.5-5.1)
[2021-01-11 07:16] LABS: BASO % 1 % (0-3); EOS # 0.1 x10^3/uL (0.0-0.7); EOS % 1 % (0-3); HEMOGLOBIN 10.5 g/dL (12.0-15.5); LYMPH # 0.7 x10^3/uL (1.0-4.8); LYMPH % 8 % (24-48); MEAN CORPUSCULAR HEMOGLOBIN 27 pg (25-35); MEAN CORPUSCULAR HGB CONC 32 g/dL (31-37); MEAN CORPUSCULAR VOLUME 83 fL (79-100); MONO # 0.8 x10^3/uL (0.0-1.1); MONO % 9 % (0-9); NEUT # 7.2 x10^3/uL (1.8-7.7); NEUT % 81 % (31-73); PLATELET COUNT 167 x10^3/uL (140-400); RED BLOOD COUNT 3.95 x10^6/uL (3.50-5.40); RED CELL DISTRIBUTION WIDTH 14.2 % (11.5-14.5); WHITE BLOOD COUNT 8.8 x10^3/uL (4.0-11.0)
[2021-01-11] MEDS: ONDANSETRON ODT 4 MG TAB.RAPDIS. PO SCH ×3 (07:30→16:30)
[2021-01-11 08:22] LABS: BASE EXCESS ABG 4 mmol/L (-3-3); HCO3 ABG 30 mmol/L (21-28); PCO2 ABG 48 mmHg (35-46); PO2 ABG 88 mmHg (65-108); SAT O2 ABG 96 % (92-99)
[2021-01-11 08:32] LABS: FIO2 ABG 50% AC12/500/5
[2021-01-11] MEDS ORDERED: POTASSIUM BICARB 20 MEQ EFFERVESCENT TABLET. PO ONE ×2 (09:00→18:00)
--- NOTE | 2021-01-11 12:24 | PDOC ---
PROGRESS NOTES Date of Service: DATE: 01/11/21 TIME: 12:24 Subjective Subjective Remains intubated Objective Objective Vital Signs Date Time Temp Pulse Resp B/P (MAP) Pulse Ox O2 Delivery O2 Flow Rate FiO2 01/11/21 12:06 Mechanical Ventilator 01/11/21 12:03 97 01/11/21 11:00 70 12 106/55 01/11/21 08:00 98.3 98.3 01/10/21 17:40 2.0 l Intake and Output 01/11/21 06:59 Intake Total 3326 ml Output Total 1605 ml Balance 1721 ml Intake Oral 595 ml IV Total 900 ml Tube Feeding 1010 ml Other 821 ml Output Urine Total 1605 ml Physical Exam Abdomen: Normal bowel sounds, Soft, Other (obese) Heart: Regular rate Extremities: Other (1 plus edema RLE. left BKA) General: Alert HEENT: Atraumatic Lungs: Other (clear. decreased breath sounds anterirly. intubated.) MUSCULOSKELETAL: Osteoarthritic changes both hands Neck: Supple Neuro: Other (sedated) Psych/Mental Status: Other (sedated) Skin: Other (mild erythema left pretibial area due to inflammation) Assessment Assessment 1. Acute on chronic systolic CHF; echo 10/26 with preserved LV systolic function. Echo this morning with LVEF 25% with pattern suggestive Takotsubo's cardiomyopathy. S/p IV diuresis. 2. Acute respiratory failure secondary to CHF 3. PEA arrest; s/p intubation. No VT/VF 4. NSTEMI: multifactorial with multiorgan failure 5. CAD; recent cath in May 2020 showed 60% stenosis involving LAD with negative IFR and 100% DATA SPECIALIST involving moderate caliber obtuse marginal branch of left circumflex artery with left to left collaterals. 6. NILDA on CKD; marginal UOP. off dobutamine 7. Leukocytosis, UTI. cultures with E coli. ID following 8. Hypertension: presently hypotensive requiring pressor support 9. Hyperlipidemia: statin 10. Hypothyroidism: on levothyroxine 11. Diabetes, II 12. PAD s/p left BKA 13. RLE cellulitis; antibiotics as per IM 14. PAFIB; maintaining SR Recommendations Needs fluid offloading. Lasix. Continue heprain drip. Awaiting family in regards to goals of care. poor prognosis, possible comfort care. On Hospice prior to admission. Avoid nephrotoxins, follow renal recs Secondary prevention; ASA, statin, BB Supportive care Plan Plan of Care Problems Medical Problems: (1) CHF exacerbation Status: Acute (2) CKD (chronic kidney disease) Status: Acute (3) NSTEMI (non-ST elevated myocardial infarction) Status: Acute (4) Person under investigation for COVID-19 Status: Acute (5) Respiratory failure, unspecified with hypoxia Status: Acute (6) UTI (urinary tract infection) Status: Acute Comment Review of Relevant I have reviewed the following items helio (where applicable) has been applied. Labs Laboratory Tests Test 01/10/21 13:10 01/10/21 17:25 01/10/21 18:08 01/10/21 23:25 Glucose (Fingerstick) 203 mg/dL (70-99) 177 mg/dL (70-99) Heparin Anti-Xa Act, Unfractionated 0.70 IU/mL (0.30-0.70) 0.58 IU/mL (0.30-0.70) Test 01/10/21 23:34 01/11/21 05:55 01/11/21 06:05 01/11/21 08:15 Glucose (Fingerstick) 183 mg/dL (70-99) 198 mg/dL (70-99) White Blood Count 8.8 x10^3/uL (4.0-11.0) Red Blood Count 3.95 x10^6/uL (3.50-5.40) Hemoglobin 10.5 g/dL (12.0-15.5) Hematocrit 33.0 % (36.0-47.0) Mean Corpuscular Volume 83 fL (79-100) Mean Corpuscular Hemoglobin 27 pg (25-35) Mean Corpuscular Hemoglobin Concent 32 g/dL (31-37) Red Cell Distribution Width 14.2 % (11.5-14.5) Platelet Count 167 x10^3/uL (140-400) Neutrophils (%) (Auto) 81 % (31-73) Lymphocytes (%) (Auto) 8 % (24-48) Monocytes (%) (Auto) 9 % (0-9) Eosinophils (%) (Auto) 1 % (0-3) Basophils (%) (Auto) 1 % (0-3) Neutrophils # (Auto) 7.2 x10^3/uL (1.8-7.7) Lymphocytes # (Auto) 0.7 x10^3/uL (1.0-4.8) Monocytes # (Auto) 0.8 x10^3/uL (0.0-1.1) Eosinophils # (Auto) 0.1 x10^3/uL (0.0-0.7) Basophils # (Auto) 0.0 x10^3/uL (0.0-0.2) Heparin Anti-Xa Act, Unfractionated 0.38 IU/mL (0.30-0.70) Sodium Level 144 mmol/L (136-145) Potassium Level 3.1 mmol/L (3.5-5.1) Chloride Level 104 mmol/L (98-107) Carbon Dioxide Level 30 mmol/L (21-32) Anion Gap 10 (6-14) Blood Urea Nitrogen 96 mg/dL (7-20) Creatinine 3.5 mg/dL (0.6-1.0) Estimated GFR (Cockcroft-Gault) 12.6 Glucose Level 207 mg/dL (70-99) Calcium Level 8.1 mg/dL (8.5-10.1) O2 Saturation 96 % (92-99) Arterial Blood pH 7.41 (7.35-7.45) Arterial Blood pCO2 at Patient Temp 48 mmHg (35-46) Arterial Blood pO2 at Patient Temp 88 mmHg (65-108) Arterial Blood HCO3 30 mmol/L (21-28) Arterial Blood Base Excess 4 mmol/L (-3-3) FiO2 50% ac12/500/5 Microbiology 01/05/21 Blood Culture - Final, Complete NO GROWTH AFTER 5 DAYS 01/05/21 Urine Culture - Final, Complete 01/05/21 Antimicrobic Susceptibility - Final, Complete Medications Current Medications Linezolid (Zyvox) 600 mg BID PO Last administered on 01/10/21at 20:01; Start 01/10/21 at 16:00 Vitals/I & O Vital Sign - Last 24 Hours 01/10/21 01/10/21 01/10/21 01/10/21 13:00 13:28 14:00 15:00 Pulse 69 70 69 Resp 12 12 12 B/P (MAP) 104/54 102/54 107/56 Pulse Ox 99 98 99 99 O2 Delivery Ventilator Ventilator Ventilator Ventilator 01/10/21 01/10/21 01/10/21 01/10/21 15:41 16:00 16:00 17:00 Temp 98.7 98.7 Pulse 67 74 Resp 12 12 B/P (MAP) 115/56 115/58 Pulse Ox 97 97 98 O2 Delivery Ventilator Mechanical Ventilator Ventilator Ventilator 01/10/21 01/10/21 01/10/21 01/10/21 17:10 17:40 18:00 18:10 Pulse 74 Resp 12 B/P (MAP) 119/60 Pulse Ox 97 97 98 97 O2 Delivery Ventilator Ventilator O2 Flow Rate 2.0 2.0 01/10/21 01/10/21 01/10/21 01/10/21 19:00 20:00 20:00 20:00 Temp 99.1 99.1 Pulse 75 76 Resp 12 12 B/P (MAP) 119/58 117/62 Pulse Ox 98 94 96 O2 Delivery Ventilator Mechanical Ventilator Ventilator Ventilator 01/10/21 01/10/21 01/10/21 01/10/21 21:00 22:00 22:00 23:00 Pulse 71 70 72 Resp 12 12 12 B/P (MAP) 99/52 104/51 106/54 Pulse Ox 98 98 94 98 O2 Delivery Ventilator Ventilator Ventilator Ventilator 01/10/21 01/11/21 01/11/21 01/11/21 23:30 00:00 00:01 01:00 Temp 98.9 98.9 Pulse 71 73 Resp 12 12 B/P (MAP) 91/43 101/47 Pulse Ox 94 97 98 O2 Delivery Mechanical Ventilator Ventilator Ventilator Ventilator 01/11/21 01/11/21 01/11/21 01/11/21 02:00 02:31 03:00 04:00 Pulse 74 73 Resp 12 12 B/P (MAP) 103/50 110/53 Pulse Ox 97 97 97 O2 Delivery Ventilator Ventilator Ventilator Mechanical Ventilator 01/11/21 01/11/21 01/11/21 01/11/21 04:00 04:30 05:00 06:00 Temp 98.0 98.0 Pulse 70 71 66 Resp 12 12 12 B/P (MAP) 99/53 95/47 98/48 Pulse Ox 97 97 97 98 O2 Delivery Ventilator Ventilator Ventilator Ventilator 01/11/21 01/11/21 01/11/21 01/11/21 07:00 07:40 08:00 08:00 Temp 98.3 98.3 Pulse 74 70 Resp 12 12 B/P (MAP) 102/51 102/50 Pulse Ox 98 99 97 O2 Delivery Ventilator Ventilator Ventilator Mechanical Ventilator 01/11/21 01/11/21 01/11/21 01/11/21 09:00 09:09 10:00 11:00 Pulse 72 72 70 Resp 12 12 12 B/P (MAP) 104/57 105/55 106/55 Pulse Ox 98 98 97 97 O2 Delivery Ventilator Ventilator Ventilator Ventilator 01/11/21 01/11/21 12:03 12:06 Pulse Ox 97 O2 Delivery Ventilator Mechanical Ventilator Intake and Output 01/10/21 01/10/21 01/11/21 14:59 22:59 06:59 Intake Total 260 ml 1295 ml 1771 ml Output Total 635 ml 520 ml 450 ml Balance -375 ml 775 ml 1321 ml JAY SMYTH MD Jan 11, 2021 12:24
--- NOTE | 2021-01-11 12:39 | PDOC ---
Infectious Disease Note Subjective: Subjective Ventilated/Sedated afebrile last 24 hrs no pressor requirements Discussed with nursing staff Vital Signs: Vital Signs Vital Signs Date Time Temp Pulse Resp B/P (MAP) Pulse Ox O2 Delivery O2 Flow Rate FiO2 01/11/21 12:06 Mechanical Ventilator 01/11/21 12:03 97 01/11/21 11:00 70 12 106/55 01/11/21 08:00 98.3 98.3 01/10/21 17:40 2.0 Physical Exam: PHYSICAL EXAM GENERAL: Intubated\sedated HEENT: Normocephalic, atraumatic. ETT present LUNGS: Decreased breath sounds at the bases, some crackles. CARDIOVASCULAR: S1, S2. No murmurs. ABDOMEN: Soft, nontender, nondistended, obese. Bowel sounds present. EXTREMITIES: Left BKA prosthesis in place, taken down. Stump looks healthy, just dry skin. Right lower extremity, trace edema, mild erythema which is at baseline, no warmth, no weeping lesions, much improved than last admission., Dry anterior acevedo wound not infected DERMATOLOGIC: Warm, dry. No generalized rash except for above. NEUROLOGIC: Intubated GENITOURINARY: Cifuentes in place, Medications: Inpatient Meds: Medications reviewed. Labs: Lab Laboratory Tests Test 01/10/21 13:10 01/10/21 17:25 01/10/21 18:08 01/10/21 23:25 Glucose (Fingerstick) 203 mg/dL (70-99) 177 mg/dL (70-99) Heparin Anti-Xa Act, Unfractionated 0.70 IU/mL (0.30-0.70) 0.58 IU/mL (0.30-0.70) Test 01/10/21 23:34 01/11/21 05:55 01/11/21 06:05 01/11/21 08:15 Glucose (Fingerstick) 183 mg/dL (70-99) 198 mg/dL (70-99) White Blood Count 8.8 x10^3/uL (4.0-11.0) Red Blood Count 3.95 x10^6/uL (3.50-5.40) Hemoglobin 10.5 g/dL (12.0-15.5) Hematocrit 33.0 % (36.0-47.0) Mean Corpuscular Volume 83 fL (79-100) Mean Corpuscular Hemoglobin 27 pg (25-35) Mean Corpuscular Hemoglobin Concent 32 g/dL (31-37) Red Cell Distribution Width 14.2 % (11.5-14.5) Platelet Count 167 x10^3/uL (140-400) Neutrophils (%) (Auto) 81 % (31-73) Lymphocytes (%) (Auto) 8 % (24-48) Monocytes (%) (Auto) 9 % (0-9) Eosinophils (%) (Auto) 1 % (0-3) Basophils (%) (Auto) 1 % (0-3) Neutrophils # (Auto) 7.2 x10^3/uL (1.8-7.7) Lymphocytes # (Auto) 0.7 x10^3/uL (1.0-4.8) Monocytes # (Auto) 0.8 x10^3/uL (0.0-1.1) Eosinophils # (Auto) 0.1 x10^3/uL (0.0-0.7) Basophils # (Auto) 0.0 x10^3/uL (0.0-0.2) Heparin Anti-Xa Act, Unfractionated 0.38 IU/mL (0.30-0.70) Sodium Level 144 mmol/L (136-145) Potassium Level 3.1 mmol/L (3.5-5.1) Chloride Level 104 mmol/L (98-107) Carbon Dioxide Level 30 mmol/L (21-32) Anion Gap 10 (6-14) Blood Urea Nitrogen 96 mg/dL (7-20) Creatinine 3.5 mg/dL (0.6-1.0) Estimated GFR (Cockcroft-Gault) 12.6 Glucose Level 207 mg/dL (70-99) Calcium Level 8.1 mg/dL (8.5-10.1) O2 Saturation 96 % (92-99) Arterial Blood pH 7.41 (7.35-7.45) Arterial Blood pCO2 at Patient Temp 48 mmHg (35-46) Arterial Blood pO2 at Patient Temp 88 mmHg (65-108) Arterial Blood HCO3 30 mmol/L (21-28) Arterial Blood Base Excess 4 mmol/L (-3-3) FiO2 50% ac12/500/5 Micro RUN DATE: 01/08/21 [facility] *LIVE* PAGE 1 RUN TIME: 827 Specimen Inquiry PATIENT: DIMAS REDMOND ACCT: [id number] LOC: [address] [place] [address] U: [id number] AGE/SX: 80/F ROOM: [facility] RE01/05/[address]: TERE ALLISON MD : 1940 BED: 1 DIS : STATUS: ADM IN TLOC: SPEC #: [id number] ONEL: 01/05/21 STATUS: COMP REQ #: [id number] RECD: 01/05/[address]: ARY MURILLO DO SOURCE: VOID ENTR: 01/05/21 [facility] DR: TERE ALLISON MD SPDESC: JOAQUIM LI MD ORDERED: URINE CULTURE Procedure Result URINE CULTURE Final Final >100,000 CFU/ML [ESCHERICHIA COLI] Testing Performed by: [address] [address] For Inquires, the Physician may contact the Microbiology department at [phone] ESCHERICHIA COLI ANTIMICROBIAL SUSCEPTIBILITY Final Comment NEG BIRGIT 56 ESCHERICHIA COLI ANTIBIOTIC RESULT INTERPRETATION AMPICILLIN/SULBACTAM 8/4 S AMIKACIN <=16 S AMPICILLIN >16 R AMOXICILLIN/K CLAVULANATE >16/8 R AZTREONAM <=4 S CEFTRIAXONE <=1 S CEFTAZIDIME <=1 S CEFOTAXIME <=2 S CEFOXITIN <=8 S CEFAZOLIN 8 S CIPROFLOXACIN <=0.25 S CEFEPIME <=2 S CEFUROXIME 8 S CEFTAZIDIME/AVIBACTAM <=4 S ERTAPENEM <=0.5 S NITROFURANTOIN <=32 S GENTAMICIN <=2 S LEVOFLOXACIN <=0.5 S MEROPENEM <=1 S PIPERACILLIN/TAZOBACTAM <=8 S TRIMETHOPRIM/SULFAMETHOXAZOLE <=0.5/9.5 S TETRACYCLINE <=4 S TOBRAMYCIN <=2 S Unless otherwise specified, Testing Performed by: [facility] RUN DATE: 01/08/21 [facility] *LIVE* PAGE 2 RUN TIME: 827 Specimen Inquiry SPEC: [id number] PATIENT: DIMAS REDMOND [id number] (Continued) Procedure Result CONTINUED ON NEXT PAGE RUN DATE: 01/08/21 [facility] *LIVE* PAGE 3 RUN TIME: 827 Specimen Inquiry SPEC: [id number] PATIENT: DIMAS REDMOND [id number] (Continued) -- Procedure Result ANTIMICROBIAL SUSCEPTIBILITY Final (continued) [address] [place] [address] For Inquires, the Physician may contact the Microbiology department at [phone] Blood cultures negative Objective: Assessment: Patient's condition has deteriorated Acute hypoxic respiratory failure status post intubation Asystole status post CODE BLUE January 08, 2021 1. Leukocytosis, 2. E. coli UTI resistant to Augmentin 3. History of extended spectrum beta-lactamase Escherichia coli urinary tract infection in the past. 4. 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 5. Congestive heart failure. 6. Chest pain. 7. Chronic kidney disease. 8. Diabetes mellitus 2. 9. History of left lrnmd-[id number]-nnsn amputation. Plan: Plan of Care Continue Zosyn/ Zyvox Monitor closely as pt is on sertaline Monitor labs and cultures. Continue supportive care. Critically ill Prognosis is very poor Consider comfort measures Discussed with LADARIUS MARTINEZ MD Jan 11, 2021 12:39
[2021-01-11] MEDS: ALLOPURINOL 100 MG TABLET. PO SCH (12:49)
[2021-01-11] MEDS: PARoxetine 20 MG TABLET PO SCH (12:49)
[2021-01-11] MEDS: ASPIRIN CHEWABLE 81 MG TABLET. PO SCH (12:49)
[2021-01-11] MEDS: METOPROLOL SUCC 24HR ER 50 MG TAB.ER.24H. PO SCH (12:49)
[2021-01-11] MEDS: LINEZOLID 600 MG TABLET PO SCH ×2 (12:50→20:21)
[2021-01-11] MEDS: LACTOBACILLUS RHAMNOSUS GG 1 CAPSULE. PO SCH ×2 (12:50→20:21)
[2021-01-11] MEDS: CHLORHEXIDINE 0.12% 15 ML MOUTHWASH. MM SCH ×2 (12:50→20:21)
--- NOTE | 2021-01-11 13:04 | PDOC ---
PROGRESS NOTES Date of Service DATE: 01/11/21 TIME: 12:48 Subjective Subjective sedated on ventilator and making urine. receiving tube feeding. lab reviewed. discussed with son KASIA and . decided to make decision in 48 hours whether to withdrawal care or continue current tx. discussed with her nurse. on fentanyl drip and versed.potassium 3.1 Objective Objective Vital Signs Date Time Temp Pulse Resp B/P (MAP) Pulse Ox O2 Delivery O2 Flow Rate FiO2 01/11/21 12:49 84 107/55 01/11/21 12:06 Mechanical Ventilator 01/11/21 12:03 97 01/11/21 11:00 12 01/11/21 08:00 98.3 98.3 01/10/21 17:40 2.0 Intake and Output 01/11/21 07:06 Intake Total 3326 ml Output Total 1605 ml Balance 1721 ml Intake Oral 595 ml IV Total 900 ml Tube Feeding 1010 ml Other 821 ml Output Urine Total 1605 ml Physical Exam Abdomen: Normal bowel sounds, Soft Heart: Regular rate, Normal S1, Normal S2 Extremities: No edema, Other (left BKA) General: Other (sedated and oraly intubated ) HEENT: Atraumatic Lungs: Clear to auscultation Neuro: Other (sedated) Psych/Mental Status: Other (sedated) Skin: No rashes Assessment Assessment Problems1. Chest pain, resolved with sublingual nitroglycerin. 2. Non-ST segment elevated myocardial infarction. 3. [id number] systolic congestive heart failure, 4. Leukocytosis resolved 5. Coronary artery disease, nonobstructive. 60% LAD 05/26 per cardiac cath 6. Diabetes mellitus type 2, on insulin with nephropathy and neuropathy. 7. Chronic kidney disease stage.3. 8. Hypertension. 9. Hyperlipidemia. 10. Hypothyroidism. 11. Obstructive sleep apnea. Treated with CPAP. 12. Morbid obesity. 13. Chronic venous insufficiency of the legs with left below-knee amputation, severe protein calorie malnutrition acute respiratory failure. hx of co2 narcosis in past acute kidney injury due to cardiorenal syndrome e. coli uti code blue/PEA 01/08/21 acute hypoxic and hypercapnic respiratory failure on ventilator hypokalemia Medical Problems: (1) CHF exacerbation Status: Acute (2) CKD (chronic kidney disease) Status: Acute (3) NSTEMI (non-ST elevated myocardial infarction) Status: Acute (4) Person under investigation for COVID-19 Status: Acute (5) Respiratory failure, unspecified with hypoxia Status: Acute (6) UTI (urinary tract infection) Status: Acute Plan Plan of Care replete kcl continue ventilator support continue tube feeding monitor renal function continue zyvox and zosyn d/c paxil on zyvox lab tomorrow family to make decision on continued care in 48 hours Comment Review of Relevant I have reviewed the following items helio (where applicable) has been applied. Labs Laboratory Tests Test 01/09/21 18:28 01/10/21 00:33 01/10/21 04:05 01/10/21 05:57 Glucose (Fingerstick) 173 mg/dL (70-99) 187 mg/dL (70-99) 186 mg/dL (70-99) White Blood Count 15.5 x10^3/uL (4.0-11.0) Red Blood Count 4.26 x10^6/uL (3.50-5.40) Hemoglobin 11.2 g/dL (12.0-15.5) Hematocrit 35.6 % (36.0-47.0) Mean Corpuscular Volume 84 fL (79-100) Mean Corpuscular Hemoglobin 26 pg (25-35) Mean Corpuscular Hemoglobin Concent 32 g/dL (31-37) Red Cell Distribution Width 14.3 % (11.5-14.5) Platelet Count 208 x10^3/uL (140-400) Neutrophils (%) (Auto) 86 % (31-73) Lymphocytes (%) (Auto) 4 % (24-48) Monocytes (%) (Auto) 10 % (0-9) Eosinophils (%) (Auto) 0 % (0-3) Basophils (%) (Auto) 0 % (0-3) Neutrophils # (Auto) 13.3 x10^3/uL (1.8-7.7) Lymphocytes # (Auto) 0.6 x10^3/uL (1.0-4.8) Monocytes # (Auto) 1.5 x10^3/uL (0.0-1.1) Eosinophils # (Auto) 0.0 x10^3/uL (0.0-0.7) Basophils # (Auto) 0.0 x10^3/uL (0.0-0.2) Sodium Level 141 mmol/L (136-145) Potassium Level 4.0 mmol/L (3.5-5.1) Chloride Level 103 mmol/L (98-107) Carbon Dioxide Level 29 mmol/L (21-32) Anion Gap 9 (6-14) Blood Urea Nitrogen 92 mg/dL (7-20) Creatinine 3.6 mg/dL (0.6-1.0) Estimated GFR (Cockcroft-Gault) 12.2 Glucose Level 193 mg/dL (70-99) Calcium Level 8.1 mg/dL (8.5-10.1) Troponin I High Sensitivity 65287 ng/L (4-50) Test 01/10/21 11:45 01/10/21 13:10 01/10/21 17:25 01/10/21 18:08 Heparin Anti-Xa Act, Unfractionated 0.12 IU/mL (0.30-0.70) 0.70 IU/mL (0.30-0.70) Glucose (Fingerstick) 203 mg/dL (70-99) 177 mg/dL (70-99) Test 01/10/21 23:25 01/10/21 23:34 01/11/21 05:55 01/11/21 06:05 Heparin Anti-Xa Act, Unfractionated 0.58 IU/mL (0.30-0.70) 0.38 IU/mL (0.30-0.70) Glucose (Fingerstick) 183 mg/dL (70-99) 198 mg/dL (70-99) White Blood Count 8.8 x10^3/uL (4.0-11.0) Red Blood Count 3.95 x10^6/uL (3.50-5.40) Hemoglobin 10.5 g/dL (12.0-15.5) Hematocrit 33.0 % (36.0-47.0) Mean Corpuscular Volume 83 fL (79-100) Mean Corpuscular Hemoglobin 27 pg (25-35) Mean Corpuscular Hemoglobin Concent 32 g/dL (31-37) Red Cell Distribution Width 14.2 % (11.5-14.5) Platelet Count 167 x10^3/uL (140-400) Neutrophils (%) (Auto) 81 % (31-73) Lymphocytes (%) (Auto) 8 % (24-48) Monocytes (%) (Auto) 9 % (0-9) Eosinophils (%) (Auto) 1 % (0-3) Basophils (%) (Auto) 1 % (0-3) Neutrophils # (Auto) 7.2 x10^3/uL (1.8-7.7) Lymphocytes # (Auto) 0.7 x10^3/uL (1.0-4.8) Monocytes # (Auto) 0.8 x10^3/uL (0.0-1.1) Eosinophils # (Auto) 0.1 x10^3/uL (0.0-0.7) Basophils # (Auto) 0.0 x10^3/uL (0.0-0.2) Sodium Level 144 mmol/L (136-145) Potassium Level 3.1 mmol/L (3.5-5.1) Chloride Level 104 mmol/L (98-107) Carbon Dioxide Level 30 mmol/L (21-32) Anion Gap 10 (6-14) Blood Urea Nitrogen 96 mg/dL (7-20) Creatinine 3.5 mg/dL (0.6-1.0) Estimated GFR (Cockcroft-Gault) 12.6 Glucose Level 207 mg/dL (70-99) Calcium Level 8.1 mg/dL (8.5-10.1) Test 01/11/21 08:15 01/11/21 12:37 O2 Saturation 96 % (92-99) Arterial Blood pH 7.41 (7.35-7.45) Arterial Blood pCO2 at Patient Temp 48 mmHg (35-46) Arterial Blood pO2 at Patient Temp 88 mmHg (65-108) Arterial Blood HCO3 30 mmol/L (21-28) Arterial Blood Base Excess 4 mmol/L (-3-3) FiO2 50% ac12/500/5 Glucose (Fingerstick) 199 mg/dL (70-99) Laboratory Tests Test 01/10/21 13:10 01/10/21 17:25 01/10/21 18:08 01/10/21 23:25 Glucose (Fingerstick) 203 mg/dL (70-99) 177 mg/dL (70-99) Heparin Anti-Xa Act, Unfractionated 0.70 IU/mL (0.30-0.70) 0.58 IU/mL (0.30-0.70) Test 01/10/21 23:34 01/11/21 05:55 01/11/21 06:05 01/11/21 08:15 Glucose (Fingerstick) 183 mg/dL (70-99) 198 mg/dL (70-99) White Blood Count 8.8 x10^3/uL (4.0-11.0) Red Blood Count 3.95 x10^6/uL (3.50-5.40) Hemoglobin 10.5 g/dL (12.0-15.5) Hematocrit 33.0 % (36.0-47.0) Mean Corpuscular Volume 83 fL (79-100) Mean Corpuscular Hemoglobin 27 pg (25-35) Mean Corpuscular Hemoglobin Concent 32 g/dL (31-37) Red Cell Distribution Width 14.2 % (11.5-14.5) Platelet Count 167 x10^3/uL (140-400) Neutrophils (%) (Auto) 81 % (31-73) Lymphocytes (%) (Auto) 8 % (24-48) Monocytes (%) (Auto) 9 % (0-9) Eosinophils (%) (Auto) 1 % (0-3) Basophils (%) (Auto) 1 % (0-3) Neutrophils # (Auto) 7.2 x10^3/uL (1.8-7.7) Lymphocytes # (Auto) 0.7 x10^3/uL (1.0-4.8) Monocytes # (Auto) 0.8 x10^3/uL (0.0-1.1) Eosinophils # (Auto) 0.1 x10^3/uL (0.0-0.7) Basophils # (Auto) 0.0 x10^3/uL (0.0-0.2) Heparin Anti-Xa Act, Unfractionated 0.38 IU/mL (0.30-0.70) Sodium Level 144 mmol/L (136-145) Potassium Level 3.1 mmol/L (3.5-5.1) Chloride Level 104 mmol/L (98-107) Carbon Dioxide Level 30 mmol/L (21-32) Anion Gap 10 (6-14) Blood Urea Nitrogen 96 mg/dL (7-20) Creatinine 3.5 mg/dL (0.6-1.0) Estimated GFR (Cockcroft-Gault) 12.6 Glucose Level 207 mg/dL (70-99) Calcium Level 8.1 mg/dL (8.5-10.1) O2 Saturation 96 % (92-99) Arterial Blood pH 7.41 (7.35-7.45) Arterial Blood pCO2 at Patient Temp 48 mmHg (35-46) Arterial Blood pO2 at Patient Temp 88 mmHg (65-108) Arterial Blood HCO3 30 mmol/L (21-28) Arterial Blood Base Excess 4 mmol/L (-3-3) FiO2 50% ac12/500/5 Test 01/11/21 12:37 Glucose (Fingerstick) 199 mg/dL (70-99) Microbiology 01/05/21 Blood Culture - Final, Complete NO GROWTH AFTER 5 DAYS 01/05/21 Urine Culture - Final, Complete 01/05/21 Antimicrobic Susceptibility - Final, Complete Medications Current Medications Furosemide (Lasix) 80 mg 1X ONCE IVP Last administered on 01/05/21at 09:21; Start 01/05/21 at 09:00; Stop 01/05/21 at 09:01; Status DC Nitroglycerin (Nitrostat) 0.4 mg PRN Q5MIN PRN SL CHEST PAIN Last administered on 01/08/21at 03:16; Start 01/05/21 at 09:30 Ceftriaxone Sodium (Rocephin) 1 gm 1X ONCE IVP Last administered on 01/05/21at 12:41; Start 01/05/21 at 12:00; Stop 01/05/21 at 12:09; Status DC Aspirin (Raulito Aspirin) 325 mg DAILY PO Last administered on 01/09/21at 08:12; Start 01/05/21 at 12:00; Stop 01/10/21 at 11:41; Status DC Insulin Human Lispro (HumaLOG) 4 units TIDAC SQ Last administered on 01/08/21at 08:25; Start 01/05/21 at 16:30; Stop 01/09/21 at 13:18; Status DC Insulin Glargine (Lantus Syringe) 12 unit QHS SQ Last administered on 01/08/21at 21:14; Start 01/05/21 at 21:00; Stop 01/09/21 at 13:18; Status DC Insulin Human Lispro (HumaLOG) 0-8 UNITS TIDWMEALS SQ Last administered on 01/05/21at 23:41; Start 01/05/21 at 17:00; Stop 01/09/21 at 13:18; Status DC Ondansetron HCl (Zofran Odt) 4 mg PRN Q6HRS PRN PO NAUSEA/VOMITING Last administered on 01/06/21at 23:20; Start 01/05/21 at 11:45 Ondansetron HCl (Zofran Odt) 4 mg TIDAC PO Last administered on 01/08/21at 08:16; Start 01/05/21 at 12:00 Levothyroxine Sodium (Synthroid) 150 mcg DAILY06 PO Last administered on 01/11/21at 05:56; Start 01/06/21 at 06:00 Furosemide (Lasix) 40 mg BID92 PO Last administered on 01/06/21at 08:38; Start 01/05/21 at 14:00; Stop 01/06/21 at 10:42; Status DC Metolazone (Zaroxolyn) 2.5 mg MoWeFr@0900 PO Last administered on 01/08/21at 08:17; Start 01/06/21 at 09:00; Stop 01/08/21 at 12:26; Status DC Potassium Chloride (Klor-Con) 20 meq BID PO Last administered on 01/06/21at 08:38; Start 01/05/21 at 21:00; Stop 01/06/21 at 10:42; Status DC Metoprolol Succinate (Toprol Xl) 50 mg DAILY PO Last administered on 01/11/21at 12:49; Start 01/06/21 at 09:00 Amlodipine Besylate (Norvasc) 5 mg DAILY PO Last administered on 01/08/21at 08:18; Start 01/06/21 at 09:00; Stop 01/09/21 at 13:18; Status DC Senna/Docusate Sodium (Senna Plus) 2 tab QHS PO Last administered on 01/10/21at 20:00; Start 01/05/21 at 21:00 Allopurinol (Zyloprim) 100 mg DAILY PO Last administered on 01/11/21at 12:49; Start 01/06/21 at 09:00 Atorvastatin Calcium (Lipitor) 40 mg QHS PO Last administered on 01/10/21at 20:01; Start 01/05/21 at 21:00 Paroxetine HCl (Paxil) 20 mg DAILY PO Last administered on 01/11/21at 12:49; Start 01/06/21 at 09:00 Piperacillin Sod/ Tazobactam Sod 3.375 gm/Sodium Chloride 50 ml @ 100 mls/hr Q6HRS IV Last administered on 01/06/21at 06:08; Start 01/05/21 at 12:00; Stop 01/06/21 at 10:42; Status DC Heparin Sodium (Porcine) (Heparin Sodium) 5,000 unit Q12HR SQ ; Start 01/05/21 at 21:00; Stop 01/05/21 at 18:35; Status DC Famotidine (Pepcid) 20 mg QHS PO Last administered on 01/10/21at 20:01; Start 01/05/21 at 21:00 Acetaminophen (Tylenol) 650 mg PRN Q6HRS PRN PO MILD PAIN / TEMP > 100.3'F Last administered on 01/10/21at 03:59; Start 01/05/21 at 12:15 Heparin Sodium/ Dextrose 250 ml @ 13.32 mls/ hr CONT PRN IV PER PROTOCOL Last administered on 01/06/21at 17:00; Start 01/05/21 at 19:00; Stop 01/07/21 at 14:35; Status DC Heparin Sodium (Porcine) (Heparin Sodium) 2,800 unit PRN Q6HRS PRN IV FOR UFH LEVEL LESS THAN 0.2 Last administered on 01/06/21at 21:30; Start 01/05/21 at 19:00; Stop 01/07/21 at 14:35; Status DC Perflutren Protein Type A Microsphe (Optison) 0.66 mg STK-MED ONCE IV ; Start 01/06/21 at 07:20; Stop 01/06/21 at 07:20; Status DC Perflutren Protein Type A Microsphe (Optison) 0.66 mg 1X ONCE IV ; Start 01/06/21 at 08:15; Stop 01/06/21 at 08:16; Status DC Piperacillin Sod/ Tazobactam Sod 2.25 gm/Sodium Chloride 50 ml @ 100 mls/hr Q6HRS IV Last administered on 01/08/21at 05:17; Start 01/06/21 at 12:00; Stop 01/08/21 at 10:40; Status DC Potassium Chloride (Klor-Con) 20 meq TID PO Last administered on 01/07/21at 08:44; Start 01/06/21 at 14:00; Stop 01/07/21 at 10:42; Status DC Furosemide (Lasix) 40 mg BID92 IVP Last administered on 01/07/21at 08:46; Start 01/06/21 at 14:00; Stop 01/07/21 at 10:42; Status DC Potassium Chloride (Klor-Con) 20 meq 1X ONCE PO Last administered on 01/06/21at 11:19; Start 01/06/21 at 11:30; Stop 01/06/21 at 11:31; Status DC Lactobacillus Rhamnosus (Culturelle) 1 cap BID PO Last administered on 01/11/21at 12:50; Start 01/06/21 at 21:00 Perflutren Protein Type A Microsphe (Optison) 0.66 mg STK-MED ONCE IV ; Start 01/06/21 at 08:00; Stop 01/07/21 at 09:00; Status DC Potassium Chloride (Klor-Con) 20 meq BID PO Last administered on 01/08/21at 08:16; Start 01/07/21 at 21:00; Stop 01/08/21 at 12:26; Status DC Furosemide (Lasix) 40 mg DAILY PO Last administered on 01/08/21at 08:16; Start 01/08/21 at 09:00; Stop 01/08/21 at 12:26; Status DC Potassium Chloride (Klor-Con) 20 meq 1X ONCE PO Last administered on 01/07/21at 11:07; Start 01/07/21 at 10:45; Stop 01/07/21 at 10:46; Status DC Bisacodyl (Dulcolax Supp) 10 mg PRN DAILY PRN [place] CONSTIPATION Last administered on 01/08/21at 02:20; Start 01/08/21 at 02:15 Dobutamine HCl/ Dextrose 250 ml @ 17.43 mls/ hr CONT PRN IV SEE I/O RECORD Last administered on 01/08/21at 10:20; Start 01/08/21 at 10:00 Ceftriaxone Sodium (Rocephin) 1 gm Q24H IVP Last administered on 01/08/21at 11:06; Start 01/08/21 at 11:00; Stop 01/09/21 at 10:15; Status DC Heparin Sodium (Porcine) (Heparin Sodium) 5,000 unit Q12HR SQ Last administered on 01/09/21at 22:01; Start 01/08/21 at 13:00; Stop 01/10/21 at 05:35; Status DC Acetaminophen/ Hydrocodone Bitart (Lortab 5/325) 1 tab PRN Q4HRS PRN PO PAIN; Start 01/08/21 at 13:45; Status UNV Norepinephrine Bitartrate 8 mg/ Dextrose 258 ml @ 22.485 mls/ hr CONT PRN IV PER PROTOCOL Last administered on 01/09/21at 11:05; Start 01/08/21 at 19:00 Norepinephrine Bitartrate 8 mg/ Dextrose 258 ml @ 22.485 mls/ hr CONT PRN IV PER PROTOCOL; Start 01/08/21 at 19:00; Status UNV Fentanyl Citrate 30 ml @ 0 mls/hr CONT PRN IV SEE PROTOCOL Last administered on 01/11/21at 02:06; Start 01/08/21 at 19:00 Midazolam HCl 100 ml @ 1 mls/hr CONT PRN IV SEE PROTOCOL Last administered on 01/11/21at 03:51; Start 01/08/21 at 19:00 Propofol 100 ml @ 0.1 mls/hr CONT PRN IV PER PROTOCOL; Start 01/08/21 at 19:00 Chlorhexidine Gluconate (Peridex) 15 ml BID MM Last administered on 01/11/21at 12:50; Start 01/08/21 at 21:00 Glycerin/ Hypromellose/ Polyethylene (Artificial Tears) 1 drop PRN Q1HR PRN OU DRY EYE; Start 01/08/21 at 19:00 Dexmedetomidine HCl 400 mcg/ Sodium Chloride 100 ml @ 5.8 mls/hr CONT PRN IV PER PROTOCOL; Start 01/08/21 at 19:00 Sodium Chloride 500 ml @ 500 mls/hr 1X PRN PRN IV SEE COMMENTS; Start 01/08/21 at 19:00 Atropine Sulfate (ATROPINE 0.5mg SYRINGE) 0.5 mg PRN Q5MIN PRN IV SEE COMMENTS; Start 01/08/21 at 19:00 Ringer's Solution 1,000 ml @ 100 mls/hr Q10H IV Last administered on 01/08/21at 21:08; Start 01/08/21 at 20:15; Stop 01/10/21 at 08:42; Status DC Fentanyl Citrate (Fentanyl 2ml Vial) 100 mcg STK-MED ONCE .ROUTE ; Start 01/08/21 at 20:42; Stop 01/08/21 at 20:42; Status DC Piperacillin Sod/ Tazobactam Sod 2.25 gm/Sodium Chloride 50 ml @ 100 mls/hr Q6HRS IV Last administered on 01/11/21at 05:56; Start 01/09/21 at 12:00; Stop 01/11/21 at 12:38; Status DC Insulin Human Lispro (HumaLOG) 0-8 UNITS BG 400-49... Q6HRS SQ Last administered on 01/10/21at 13:16; Start 01/09/21 at 18:00 Heparin Sodium/ Dextrose 250 ml @ 10 mls/hr CONT PRN IV PER PROTOCOL Last administered on 01/10/21at 21:37; Start 01/10/21 at 05:30 Heparin Sodium (Porcine) (Heparin Sodium) 2,850 unit PRN Q6HRS PRN IV FOR UFH LEVEL LESS THAN 0.2 Last administered on 01/10/21at 13:08; Start 01/10/21 at 05:30 Info (Anti-Coagulation Monitoring By Pharmacy) 1 each PRN DAILY PRN MC PER PROTOCOL Last administered on 01/10/21at 10:00; Start 01/10/21 at 05:45 Furosemide (Lasix) 40 mg 1X ONCE IVP Last administered on 01/10/21at 09:15; Start 01/10/21 at 08:45; Stop 01/10/21 at 08:46; Status DC Aspirin (Aspirin Chewable) 81 mg DAILYWBKFT PO Last administered on 01/11/21at 12:49; Start 01/10/21 at 09:15 Linezolid (Zyvox) 600 mg BID PO Last administered on 01/11/21at 12:50; Start 01/10/21 at 16:00 Atropine Sulfate (ATROPINE 1mg SYRINGE) 1 mg STK-MED ONCE .ROUTE ; Start 01/05/21 at 16:07; Stop 01/10/21 at 16:08; Status DC Epinephrine HCl (EPINEPHrine SYRINGE) 2 mg STK-MED ONCE .ROUTE ; Start 01/05/21 at 16:07; Stop 01/10/21 at 16:08; Status DC Midazolam HCl (Versed) 5 mg STK-MED ONCE .ROUTE ; Start 01/05/21 at 16:07; Stop 01/10/21 at 16:08; Status DC Sodium Bicarbonate (Sodium Bicarb Adult 8.4% Syr) 100 meq STK-MED ONCE .ROUTE ; Start 01/05/21 at 16:07; Stop 01/10/21 at 16:08; Status DC Piperacillin Sod/ Tazobactam Sod 2.25 gm/Sodium Chloride 50 ml @ 100 mls/hr Q8HRS IV ; Start 01/11/21 at 14:00 Active Scripts Active Cephalexin 500 Mg Tablet 1 Tab PO TID 7 Days Thera-M Tablet (Multivits,Ca,Minerals/Iron/Fa) 1 Each Tablet 1 Tab PO DAILY Vitamin C (Ascorbic Acid) 500 Mg Tablet 500 Mg PO DAILY Lantus (Insulin Glargine,Hum.rec.anlog) 100 Unit/1 Ml Vial 12 Unit SQ QHS Metolazone 2.5 Mg Tablet 2.5 Mg PO QMWF Klor-Con M20 (Potassium Chloride) 20 Meq Tab.er.prt 20 Meq PO BID Toprol XL (Metoprolol Succinate) 50 Mg Tab.er.24h 50 Mg PO DAILY Furosemide 40 Mg Tablet 40 Mg PO BID Amlodipine Besylate 5 Mg Tablet 5 Mg PO DAILY Atorvastatin Calcium 40 Mg Tablet 40 Mg PO QHS Admelog (Insulin Lispro) 100 Unit/1 Ml Vial 6 Units SQ TIDAC hold if blood sugar less than 90 before a meal Nyamyc (Nystatin) 15 Gm Powder 1 Renee TP BID Stool Soft-Stimulant Lax Tab (Sennosides/Docusate Sodium) 1 Each Tablet 2 Tab PO DAILY Feosol (Ferrous Sulfate) 325 Mg Tablet 325 Mg PO QODAY Synthroid (Levothyroxine Sodium) 150 Mcg Tablet 150 Mcg PO DAILY06 Allopurinol 100 Mg Tablet 100 Mg PO DAILY Paroxetine Hcl 20 Mg Tablet 20 Mg PO DAILY Reported Aspirin 81 Mg Tab.chew 81 Mg PO HS Tylenol (Acetaminophen) 325 Mg Tablet 650 Mg PO PRN Q4HRS Vitals/I & O Vital Sign - Last 24 Hours 01/10/21 01/10/21 01/10/21 01/10/21 13:00 13:28 14:00 15:00 Pulse 69 70 69 Resp 12 12 12 B/P (MAP) 104/54 102/54 107/56 Pulse Ox 99 98 99 99 O2 Delivery Ventilator Ventilator Ventilator Ventilator 01/10/21 01/10/21 01/10/21 01/10/21 15:41 16:00 16:00 17:00 Temp 98.7 98.7 Pulse 67 74 Resp 12 12 B/P (MAP) 115/56 115/58 Pulse Ox 97 97 98 O2 Delivery Ventilator Mechanical Ventilator Ventilator Ventilator 01/10/21 01/10/21 01/10/21 01/10/21 17:10 17:40 18:00 18:10 Pulse 74 Resp 12 B/P (MAP) 119/60 Pulse Ox 97 97 98 97 O2 Delivery Ventilator Ventilator O2 Flow Rate 2.0 2.0 01/10/21 01/10/21 01/10/21 01/10/21 19:00 20:00 20:00 20:00 Temp 99.1 99.1 Pulse 75 76 Resp 12 12 B/P (MAP) 119/58 117/62 Pulse Ox 98 94 96 O2 Delivery Ventilator Mechanical Ventilator Ventilator Ventilator 01/10/21 01/10/21 01/10/21 01/10/21 21:00 22:00 22:00 23:00 Pulse 71 70 72 Resp 12 12 12 B/P (MAP) 99/52 104/51 106/54 Pulse Ox 98 98 94 98 O2 Delivery Ventilator Ventilator Ventilator Ventilator 01/10/21 01/11/21 01/11/21 01/11/21 23:30 00:00 00:01 01:00 Temp 98.9 98.9 Pulse 71 73 Resp 12 12 B/P (MAP) 91/43 101/47 Pulse Ox 94 97 98 O2 Delivery Mechanical Ventilator Ventilator Ventilator Ventilator 01/11/21 01/11/21 01/11/21 01/11/21 02:00 02:31 03:00 04:00 Pulse 74 73 Resp 12 12 B/P (MAP) 103/50 110/53 Pulse Ox 97 97 97 O2 Delivery Ventilator Ventilator Ventilator Mechanical Ventilator 01/11/21 01/11/21 01/11/21 01/11/21 04:00 04:30 05:00 06:00 Temp 98.0 98.0 Pulse 70 71 66 Resp 12 12 12 B/P (MAP) 99/53 95/47 98/48 Pulse Ox 97 97 97 98 O2 Delivery Ventilator Ventilator Ventilator Ventilator 01/11/21 01/11/21 01/11/21 01/11/21 07:00 07:40 08:00 08:00 Temp 98.3 98.3 Pulse 74 70 Resp 12 12 B/P (MAP) 102/51 102/50 Pulse Ox 98 99 97 O2 Delivery Ventilator Ventilator Ventilator Mechanical Ventilator 01/11/21 01/11/21 01/11/21 01/11/21 09:00 09:09 10:00 11:00 Pulse 72 72 70 Resp 12 12 12 B/P (MAP) 104/57 105/55 106/55 Pulse Ox 98 98 97 97 O2 Delivery Ventilator Ventilator Ventilator Ventilator 01/11/21 01/11/21 01/11/21 12:03 12:06 12:49 Pulse 84 B/P (MAP) 107/55 Pulse Ox 97 O2 Delivery Ventilator Mechanical Ventilator Intake and Output 01/10/21 01/10/21 01/11/21 15:06 23:06 07:06 Intake Total 260 ml 1295 ml 1771 ml Output Total 795 ml 360 ml 450 ml Balance -535 ml 935 ml 1321 ml Justifications for Admission Other Justification TERE ALLISON MD Jan 11, 2021 13:04
--- NOTE | 2021-01-11 14:14 | PDOC ---
DATE OF SERVICE DATE: 01/11/21 TIME: 14:05 SUBJECTIVE ROS Remains Intubated OBJECTIVE Vital Signs Vital Signs Date Time Temp Pulse Resp B/P (MAP) Pulse Ox O2 Delivery O2 Flow Rate FiO2 01/11/21 12:49 84 107/55 01/11/21 12:06 Mechanical Ventilator 01/11/21 12:03 97 01/11/21 11:00 12 01/11/21 08:00 98.3 98.3 01/10/21 17:40 2.0 I & 0 Intake and Output 01/11/21 07:00 Intake Total 3326 ml Output Total 1605 ml Balance 1721 ml Intake Oral 595 ml IV Total 900 ml Tube Feeding 1010 ml Other 821 ml Output Urine Total 1605 ml PHYSICAL EXAM Physical Exam GENERAL: Intubated HEENT: Intubated NECK: Supple. LUNGS: Decreased breath sounds at the bases, CV: S1, S2. No murmurs. ABD: Soft, nontender, , obese. EXT: Left BKA prosthesis in place Right lower extremity, trace edema, DERM: Warm, dry. 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 Renal US 04/28 Mildly enlarged kidneys bilaterally . Proteinuria- 24 Hr Ur Pr < 500 mg . Patient didn't follow up with us as OP Acute on chronic systolic CHF; echo 10/26 with preserved LV systolic function.Recent Echo with LVEF 25% with pattern suggestive Takotsubo's CMP. IV Lasix prn per Cardiology Renal Calculus - chronic , seen on recent CT as well No hydronephrosis Pyuria. 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 Obesity. Anemia: Fe deficiency , SUTTON done in past - SPEP abnormal IgG and IgA, IgM normal, No M spike, K and L elevated , Ratio normal Hx of Coronary artery disease, nonobstructive. 60% LAD 3/21 per cardiac cath Hypertension currently Hypotensive Obstructive sleep apnea. Treated with CPAP. COMMENT/RELEVANT DATA Meds Current Medications Medications (Trade) Dose Ordered Sig/Meagan Start Time Stop Time Status Last Admin Dose Admin Acetaminophen (Tylenol) 650 mg PRN Q6HRS PRN 01/05/21 12:15 01/10/21 03:59 650 MG Acetaminophen/ Hydrocodone Bitart (Lortab 5/325) 1 tab PRN Q4HRS PRN 01/08/21 13:45 UNV Allopurinol (Zyloprim) 100 mg DAILY 01/06/21 09:00 01/11/21 12:49 100 MG Amlodipine Besylate (Norvasc) 5 mg DAILY 01/06/21 09:00 01/09/21 13:18 DC 01/08/21 08:18 5 MG Aspirin (Aspirin Chewable) 81 mg DAILYWBKFT 01/10/21 09:15 01/11/21 12:49 81 MG Aspirin (Raulito Aspirin) 325 mg DAILY 01/05/21 12:00 01/10/21 11:41 DC 01/09/21 08:12 325 MG Atorvastatin Calcium (Lipitor) 40 mg QHS 01/05/21 21:00 01/10/21 20:01 40 MG Atropine Sulfate (ATROPINE 0.5mg SYRINGE) 0.5 mg PRN Q5MIN PRN 01/08/21 19:00 Atropine Sulfate (ATROPINE 1mg SYRINGE) 1 mg STK-MED ONCE 01/05/21 16:07 01/10/21 16:08 DC Bisacodyl (Dulcolax Supp) 10 mg PRN DAILY PRN 01/08/21 02:15 01/08/21 02:20 10 MG Ceftriaxone Sodium (Rocephin) 1 gm Q24H 01/08/21 11:00 01/09/21 10:15 DC 01/08/21 11:06 1 GM Chlorhexidine Gluconate (Peridex) 15 ml BID 01/08/21 21:00 01/11/21 12:50 15 ML Dexmedetomidine HCl 400 mcg/ Sodium Chloride 100 ml @ 5.8 mls/hr CONT PRN 01/08/21 19:00 Dobutamine HCl/ Dextrose 250 ml @ 17.43 mls/ hr CONT PRN 01/08/21 10:00 01/08/21 10:20 17.43 MLS/HR Epinephrine HCl (EPINEPHrine SYRINGE) 2 mg STK-MED ONCE 01/05/21 16:07 01/10/21 16:08 DC Famotidine (Pepcid) 20 mg QHS 01/05/21 21:00 01/10/21 20:01 20 MG Fentanyl Citrate (Fentanyl 2ml Vial) 100 mcg STK-MED ONCE 01/08/21 20:42 01/08/21 20:42 DC Furosemide (Lasix) 40 mg 1X ONCE 01/10/21 08:45 01/10/21 08:46 DC 01/10/21 09:15 40 MG Glycerin/ Hypromellose/ Polyethylene (Artificial Tears) 1 drop PRN Q1HR PRN 01/08/21 19:00 Heparin Sodium (Porcine) (Heparin Sodium) 2,850 unit PRN Q6HRS PRN 01/10/21 05:30 01/10/21 13:08 2,850 UNIT Heparin Sodium/ Dextrose 250 ml @ 10 mls/hr CONT PRN 01/10/21 05:30 01/10/21 21:37 14.86 MLS/HR Info (Anti-Coagulation Monitoring By Pharmacy) 1 each PRN DAILY PRN 01/10/21 05:45 01/10/21 10:00 1 EACH Insulin Glargine (Lantus Syringe) 12 unit QHS 01/05/21 21:00 01/09/21 13:18 DC 01/08/21 21:14 12 UNIT Insulin Human Lispro (HumaLOG) 0-8 UNITS BG 400-49... Q6HRS 01/09/21 18:00 01/10/21 13:16 2 UNITS Lactobacillus Rhamnosus (Culturelle) 1 cap BID 01/06/21 21:00 01/11/21 12:50 1 CAP Levothyroxine Sodium (Synthroid) 150 mcg DAILY06 01/06/21 06:00 01/11/21 05:56 150 MCG Linezolid (Zyvox) 600 mg BID 01/10/21 16:00 01/11/21 12:50 600 MG Metolazone (Zaroxolyn) 2.5 mg MoWeFr@0900 01/06/21 09:00 01/08/21 12:26 DC 01/08/21 08:17 2.5 MG Metoprolol Succinate (Toprol Xl) 50 mg DAILY 01/06/21 09:00 01/11/21 12:49 50 MG Midazolam HCl (Versed) 5 mg STK-MED ONCE 01/05/21 16:07 01/10/21 16:08 DC Nitroglycerin (Nitrostat) 0.4 mg PRN Q5MIN PRN 01/05/21 09:30 01/08/21 03:16 0.4 MG Norepinephrine Bitartrate 8 mg/ Dextrose 258 ml @ 22.485 mls/ hr CONT PRN 01/08/21 19:00 UNV Ondansetron HCl (Zofran Odt) 4 mg TIDAC 01/05/21 12:00 01/08/21 08:16 4 MG Paroxetine HCl (Paxil) 20 mg DAILY 01/06/21 09:00 01/11/21 13:03 DC 01/11/21 12:49 20 MG Perflutren Protein Type A Microsphe (Optison) 0.66 mg STK-MED ONCE 01/06/21 08:00 01/07/21 09:00 DC Piperacillin Sod/ Tazobactam Sod 2.25 gm/Sodium Chloride 50 ml @ 100 mls/hr Q8HRS 01/11/21 14:00 Piperacillin Sod/ Tazobactam Sod 3.375 gm/Sodium Chloride 50 ml @ 100 mls/hr Q6HRS 01/05/21 12:00 01/06/21 10:42 DC 01/06/21 06:08 100 MLS/HR Potassium Bicarbonate (Potassium Effervescent Tablet) 40 meq 1X ONCE 01/11/21 09:00 01/11/21 13:05 DC Potassium Chloride (Klor-Con) 20 meq 1X ONCE 01/07/21 10:45 01/07/21 10:46 DC 01/07/21 11:07 20 MEQ Propofol 100 ml @ 0.1 mls/hr CONT PRN 01/08/21 19:00 Ringer's Solution 1,000 ml @ 100 mls/hr Q10H 01/08/21 20:15 01/10/21 08:42 DC 01/08/21 21:08 100 MLS/HR Senna/Docusate Sodium (Senna Plus) 2 tab QHS 01/05/21 21:00 11/5/21 20:00 2 TAB Sodium Bicarbonate (Sodium Bicarb Adult 8.4% Syr) 100 meq STK-MED ONCE 01/05/21 16:07 01/10/21 16:08 DC Sodium Chloride 500 ml @ 500 mls/hr 1X PRN PRN 01/08/21 19:00 Lab Laboratory Tests Test 01/10/21 17:25 01/10/21 18:08 01/10/21 23:25 01/10/21 23:34 Heparin Anti-Xa Act, Unfractionated 0.70 IU/mL (0.30-0.70) 0.58 IU/mL (0.30-0.70) Glucose (Fingerstick) 177 mg/dL (70-99) 183 mg/dL (70-99) Test 01/11/21 05:55 01/11/21 06:05 01/11/21 08:15 01/11/21 12:10 Glucose (Fingerstick) 198 mg/dL (70-99) White Blood Count 8.8 x10^3/uL (4.0-11.0) Red Blood Count 3.95 x10^6/uL (3.50-5.40) Hemoglobin 10.5 g/dL (12.0-15.5) Hematocrit 33.0 % (36.0-47.0) Mean Corpuscular Volume 83 fL (79-100) Mean Corpuscular Hemoglobin 27 pg (25-35) Mean Corpuscular Hemoglobin Concent 32 g/dL (31-37) Red Cell Distribution Width 14.2 % (11.5-14.5) Platelet Count 167 x10^3/uL (140-400) Neutrophils (%) (Auto) 81 % (31-73) Lymphocytes (%) (Auto) 8 % (24-48) Monocytes (%) (Auto) 9 % (0-9) Eosinophils (%) (Auto) 1 % (0-3) Basophils (%) (Auto) 1 % (0-3) Neutrophils # (Auto) 7.2 x10^3/uL (1.8-7.7) Lymphocytes # (Auto) 0.7 x10^3/uL (1.0-4.8) Monocytes # (Auto) 0.8 x10^3/uL (0.0-1.1) Eosinophils # (Auto) 0.1 x10^3/uL (0.0-0.7) Basophils # (Auto) 0.0 x10^3/uL (0.0-0.2) Heparin Anti-Xa Act, Unfractionated 0.38 IU/mL (0.30-0.70) 0.29 IU/mL (0.30-0.70) Sodium Level 144 mmol/L (136-145) Potassium Level 3.1 mmol/L (3.5-5.1) Chloride Level 104 mmol/L (98-107) Carbon Dioxide Level 30 mmol/L (21-32) Anion Gap 10 (6-14) Blood Urea Nitrogen 96 mg/dL (7-20) Creatinine 3.5 mg/dL (0.6-1.0) Estimated GFR (Cockcroft-Gault) 12.6 Glucose Level 207 mg/dL (70-99) Calcium Level 8.1 mg/dL (8.5-10.1) O2 Saturation 96 % (92-99) Arterial Blood pH 7.41 (7.35-7.45) Arterial Blood pCO2 at Patient Temp 48 mmHg (35-46) Arterial Blood pO2 at Patient Temp 88 mmHg (65-108) Arterial Blood HCO3 30 mmol/L (21-28) Arterial Blood Base Excess 4 mmol/L (-3-3) FiO2 50% ac12/500/5 Test 01/11/21 12:37 Glucose (Fingerstick) 199 mg/dL (70-99) Results All relevant outside records, renal labs, imaging studies, telemetry/EKG's were reviewed. Justicifation of Admission Dx: Justifications for Admission: Justification of Admission Dx: N/A ISRAEL WHEAT MD Jan 11, 2021 14:14
[2021-01-11] MEDS: HEPARIN 25,000UTS/250ML PREMIX 250 ML IV PRN (17:26)
[2021-01-11] MEDS: FAMOTIDINE 20 MG TABLET. PO SCH (20:21)
[2021-01-11] MEDS: SENNOSIDES/DOCUSATE 8.6/50MG TABLET. PO SCH (20:21)
[2021-01-11] MEDS: ATORVASTATIN CALCIUM 40 MG TABLET. PO SCH (20:21)
[2021-01-12] VITALS (24 sets, daily range): BP systolic 97–113; BP diastolic 49–63
--- NOTE | 2021-01-12 01:10 | NUR ---
0100 rounds/VS charted in accordance with end of Daylight Savings time
[2021-01-12] MEDS: LEVOTHYROXINE 150 MCG TABLET PO SCH (05:42)
[2021-01-12] MEDS: PIPERACILLIN/TAZOBACTAM 2.25 GM in IV NORMAL SALINE 50ML 50 ML IV SCH ×3 (05:44→21:20)
[2021-01-12] MEDS: INSULIN LISPRO 300 UNITS/3 ML VIAL. SQ SCH ×7 (05:50→23:36)
--- NOTE | 2021-01-12 05:59 | PDOC ---
PULMONARY PROGRESS NOTES DATE: 01/12/21 TIME: 05:58 Subjective on vent peep 5 fio2 40%, off sedation since yesterday pm no response scan ett secretion Vitals Vital Signs Date Time Temp Pulse Resp B/P (MAP) Pulse Ox O2 Delivery O2 Flow Rate FiO2 01/12/21 05:00 96 Ventilator 01/12/21 05:00 74 101/54 01/12/21 04:00 98.1 98.1 01/11/21 16:00 12 Comments on vent sedate ros unable to obtain HEENT: Other (nc at perrl orally intubated nose clear neck no lad no thyromegaly) Lungs: Crackles Cardiovascular: S1, S2 Abdomen: Soft, Non-tender, Other Extremities: Other (Status post left BKA) Skin: Warm Labs Laboratory Tests Test 01/10/21 11:45 01/10/21 13:10 01/10/21 17:25 01/10/21 18:08 Heparin Anti-Xa Act, Unfractionated 0.12 IU/mL (0.30-0.70) 0.70 IU/mL (0.30-0.70) Glucose (Fingerstick) 203 mg/dL (70-99) 177 mg/dL (70-99) Test 01/10/21 23:25 01/10/21 23:34 01/11/21 05:55 01/11/21 06:05 Heparin Anti-Xa Act, Unfractionated 0.58 IU/mL (0.30-0.70) 0.38 IU/mL (0.30-0.70) Glucose (Fingerstick) 183 mg/dL (70-99) 198 mg/dL (70-99) White Blood Count 8.8 x10^3/uL (4.0-11.0) Red Blood Count 3.95 x10^6/uL (3.50-5.40) Hemoglobin 10.5 g/dL (12.0-15.5) Hematocrit 33.0 % (36.0-47.0) Mean Corpuscular Volume 83 fL (79-100) Mean Corpuscular Hemoglobin 27 pg (25-35) Mean Corpuscular Hemoglobin Concent 32 g/dL (31-37) Red Cell Distribution Width 14.2 % (11.5-14.5) Platelet Count 167 x10^3/uL (140-400) Neutrophils (%) (Auto) 81 % (31-73) Lymphocytes (%) (Auto) 8 % (24-48) Monocytes (%) (Auto) 9 % (0-9) Eosinophils (%) (Auto) 1 % (0-3) Basophils (%) (Auto) 1 % (0-3) Neutrophils # (Auto) 7.2 x10^3/uL (1.8-7.7) Lymphocytes # (Auto) 0.7 x10^3/uL (1.0-4.8) Monocytes # (Auto) 0.8 x10^3/uL (0.0-1.1) Eosinophils # (Auto) 0.1 x10^3/uL (0.0-0.7) Basophils # (Auto) 0.0 x10^3/uL (0.0-0.2) Sodium Level 144 mmol/L (136-145) Potassium Level 3.1 mmol/L (3.5-5.1) Chloride Level 104 mmol/L (98-107) Carbon Dioxide Level 30 mmol/L (21-32) Anion Gap 10 (6-14) Blood Urea Nitrogen 96 mg/dL (7-20) Creatinine 3.5 mg/dL (0.6-1.0) Estimated GFR (Cockcroft-Gault) 12.6 Glucose Level 207 mg/dL (70-99) Calcium Level 8.1 mg/dL (8.5-10.1) Test 01/11/21 08:15 01/11/21 12:10 01/11/21 12:37 01/11/21 18:18 O2 Saturation 96 % (92-99) Arterial Blood pH 7.41 (7.35-7.45) Arterial Blood pCO2 at Patient Temp 48 mmHg (35-46) Arterial Blood pO2 at Patient Temp 88 mmHg (65-108) Arterial Blood HCO3 30 mmol/L (21-28) Arterial Blood Base Excess 4 mmol/L (-3-3) FiO2 50% ac12/500/5 Heparin Anti-Xa Act, Unfractionated 0.29 IU/mL (0.30-0.70) Glucose (Fingerstick) 199 mg/dL (70-99) 240 mg/dL (70-99) Test 01/11/21 19:35 01/11/21 23:37 01/12/21 01:20 01/12/21 05:44 Heparin Anti-Xa Act, Unfractionated 0.40 IU/mL (0.30-0.70) 0.51 IU/mL (0.30-0.70) Glucose (Fingerstick) 273 mg/dL (70-99) 298 mg/dL (70-99) Laboratory Tests Test 01/11/21 06:05 01/11/21 08:15 01/11/21 12:10 01/11/21 12:37 White Blood Count 8.8 x10^3/uL (4.0-11.0) Red Blood Count 3.95 x10^6/uL (3.50-5.40) Hemoglobin 10.5 g/dL (12.0-15.5) Hematocrit 33.0 % (36.0-47.0) Mean Corpuscular Volume 83 fL (79-100) Mean Corpuscular Hemoglobin 27 pg (25-35) Mean Corpuscular Hemoglobin Concent 32 g/dL (31-37) Red Cell Distribution Width 14.2 % (11.5-14.5) Platelet Count 167 x10^3/uL (140-400) Neutrophils (%) (Auto) 81 % (31-73) Lymphocytes (%) (Auto) 8 % (24-48) Monocytes (%) (Auto) 9 % (0-9) Eosinophils (%) (Auto) 1 % (0-3) Basophils (%) (Auto) 1 % (0-3) Neutrophils # (Auto) 7.2 x10^3/uL (1.8-7.7) Lymphocytes # (Auto) 0.7 x10^3/uL (1.0-4.8) Monocytes # (Auto) 0.8 x10^3/uL (0.0-1.1) Eosinophils # (Auto) 0.1 x10^3/uL (0.0-0.7) Basophils # (Auto) 0.0 x10^3/uL (0.0-0.2) Heparin Anti-Xa Act, Unfractionated 0.38 IU/mL (0.30-0.70) 0.29 IU/mL (0.30-0.70) Sodium Level 144 mmol/L (136-145) Potassium Level 3.1 mmol/L (3.5-5.1) Chloride Level 104 mmol/L (98-107) Carbon Dioxide Level 30 mmol/L (21-32) Anion Gap 10 (6-14) Blood Urea Nitrogen 96 mg/dL (7-20) Creatinine 3.5 mg/dL (0.6-1.0) Estimated GFR (Cockcroft-Gault) 12.6 Glucose Level 207 mg/dL (70-99) Calcium Level 8.1 mg/dL (8.5-10.1) O2 Saturation 96 % (92-99) Arterial Blood pH 7.41 (7.35-7.45) Arterial Blood pCO2 at Patient Temp 48 mmHg (35-46) Arterial Blood pO2 at Patient Temp 88 mmHg (65-108) Arterial Blood HCO3 30 mmol/L (21-28) Arterial Blood Base Excess 4 mmol/L (-3-3) FiO2 50% ac12/500/5 Glucose (Fingerstick) 199 mg/dL (70-99) Test 01/11/21 18:18 01/11/21 19:35 01/11/21 23:37 01/12/21 01:20 Glucose (Fingerstick) 240 mg/dL (70-99) 273 mg/dL (70-99) Heparin Anti-Xa Act, Unfractionated 0.40 IU/mL (0.30-0.70) 0.51 IU/mL (0.30-0.70) Test 01/12/21 05:44 Glucose (Fingerstick) 298 mg/dL (70-99) Medications Active Scripts Medications Dose Route/Sig Max Daily Dose Days Date Category Dose Instructions Cephalexin 500 Mg Tablet 1 Tab PO TID 7 07/05/20 Rx Thera-M Tablet (Multivits,Ca,Minerals/Iron/Fa) 1 Each Tablet 1 Tab PO DAILY 07/05/20 Rx Vitamin C (Ascorbic Acid) 500 Mg Tablet 500 Mg PO DAILY 07/05/20 Rx Lantus (Insulin Glargine,Hum.rec.anlog) 100 Unit/1 Ml Vial 12 Unit SQ QHS 07/05/20 Rx Metolazone 2.5 Mg Tablet 2.5 Mg PO QMWF 07/05/20 Rx Klor-Con M20 (Potassium Chloride) 20 Meq Tab.er.prt 20 Meq PO BID 07/05/20 Rx Toprol XL (Metoprolol Succinate) 50 Mg Tab.er.24h 50 Mg PO DAILY 07/05/20 Rx Furosemide 40 Mg Tablet 40 Mg PO BID 06/12/20 Rx Amlodipine Besylate 5 Mg Tablet 5 Mg PO DAILY 06/12/20 Rx Atorvastatin Calcium 40 Mg Tablet 40 Mg PO QHS 06/12/20 Rx Admelog (Insulin Lispro) 100 Unit/1 Ml Vial 6 Units SQ TIDAC 06/04/20 Rx hold if blood sugar less than 90 before a meal Nyamyc (Nystatin) 15 Gm Powder 1 Renee TP BID 05/12/20 Rx Stool Soft-Stimulant Lax Tab (Sennosides/Docusate Sodium) 1 Each Tablet 2 Tab PO DAILY 05/12/20 Rx Feosol (Ferrous Sulfate) 325 Mg Tablet 325 Mg PO QODAY 05/12/20 Rx Aspirin 81 Mg Tab.chew 81 Mg PO HS 05/03/20 Reported Synthroid (Levothyroxine Sodium) 150 Mcg Tablet 150 Mcg PO DAILY06 05/21/19 Rx Allopurinol 100 Mg Tablet 100 Mg PO DAILY 05/21/19 Rx Paroxetine Hcl 20 Mg Tablet 20 Mg PO DAILY 05/21/19 Rx Tylenol (Acetaminophen) 325 Mg Tablet 650 Mg PO PRN Q4HRS 05/19/13 Reported Comments cxr reviewed Improving aeration of the lungs with decrease in size of now small right pleural effusion with adjacent compressive atelectasis versus infiltrate. Similar to marginally improved degree of moderate pulmonary vascular congestion. Impression . IMPRESSION: 1. Acute on chronic hypoxemic hypercapnic respiratory failure. 2. Acute on chronic diastolic heart failure. 3. Peripheral arterial disease, status post left knee amputation. 4. Obstructive sleep apnea. 5. Chest pain per Cardiology./Cardiomyopathy ejection fraction 25% 6. Leukocytosis related to urinary tract infection, Escherichia coli. Infectious Disease has been following. 7. Hypothyroidism. 8. Type 2 diabetes. 9. Paroxysmal atrial fibrillation. 10. Status post CODE BLUE 11. Acute renal failure Plan . Updated 01/12 Continue vent support setting reviewed, off sedation sbt when alert elevate hob abx per id pepcid hep for prophylaxis Overall prognosis is poor DNR discussed w rn Updated 01/11 Continue vent support setting reviewed, decrease sedation sbt when alert elevate hob abx per id pepcid hep for prophylaxis Overall prognosis is poor Patient is currently DNR discuss w rn Updated 01/10 Continue current support Discussed case with son yesterday Discussed case with Dr. Rollins yesterday Overall prognosis is poor Patient is currently DNR Updated 01/09 Case discussed with son at the bedside who is the DPOA, I informed him that patient had multiorgan failure, I recommend withdrawing care and allowing natural Patient has advanced directive, did not want to be placed on mechanical support She was on hospice prior to this admission We will continue current support, awaiting family decision for possible comfort care Case discussed with RN and RT Case discussed with Dr. Lara Total cumulative critical care time of 30 minutes with no overlap HARVEY CHAMBERS MD Jan 12, 2021 05:59
[2021-01-12 07:40] LABS: BASO % 0 % (0-3); EOS # 0.1 x10^3/uL (0.0-0.7); EOS % 1 % (0-3); HEMATOCRIT 32.7 % (36.0-47.0); HEMOGLOBIN 10.4 g/dL (12.0-15.5); LYMPH # 0.8 x10^3/uL (1.0-4.8); LYMPH % 9 % (24-48); MEAN CORPUSCULAR HEMOGLOBIN 27 pg (25-35); MEAN CORPUSCULAR HGB CONC 32 g/dL (31-37); MEAN CORPUSCULAR VOLUME 84 fL (79-100); MONO # 0.8 x10^3/uL (0.0-1.1); MONO % 9 % (0-9); NEUT # 7.2 x10^3/uL (1.8-7.7); NEUT % 81 % (31-73); PLATELET COUNT 167 x10^3/uL (140-400); RED BLOOD COUNT 3.91 x10^6/uL (3.50-5.40); RED CELL DISTRIBUTION WIDTH 14.5 % (11.5-14.5); WHITE BLOOD COUNT 8.9 x10^3/uL (4.0-11.0)
[2021-01-12 08:00] LABS: CALCIUM 8.1 mg/dL (8.5-10.1); CREATININE 3.7 mg/dL (0.6-1.0); GFR 11.8; MAGNESIUM 2.6 mg/dL (1.8-2.4); POTASSIUM 3.3 mmol/L (3.5-5.1)
[2021-01-12 08:56] LABS: BASE EXCESS ABG 5 mmol/L (-3-3); HCO3 ABG 30 mmol/L (21-28); PCO2 ABG 47 mmHg (35-46); PO2 ABG 70 mmHg (65-108); SAT O2 ABG 93 % (92-99)
[2021-01-12 08:59] LABS: FIO2 ABG 40
[2021-01-12] MEDS: HEPARIN 25,000UTS/250ML PREMIX 250 ML IV PRN (09:01)
[2021-01-12] MEDS: LACTOBACILLUS RHAMNOSUS GG 1 CAPSULE. PO SCH ×2 (09:02→20:36)
[2021-01-12] MEDS: ASPIRIN CHEWABLE 81 MG TABLET. PO SCH (09:02)
[2021-01-12] MEDS: LINEZOLID 600 MG TABLET PO SCH ×2 (09:03→20:36)
[2021-01-12] MEDS: CHLORHEXIDINE 0.12% 15 ML MOUTHWASH. MM SCH ×2 (09:03→20:36)
[2021-01-12] MEDS: METOPROLOL SUCC 24HR ER 50 MG TAB.ER.24H. PO SCH (09:03)
[2021-01-12] MEDS: ALLOPURINOL 100 MG TABLET. PO SCH (09:03)
--- NOTE | 2021-01-12 09:30 | PDOC ---
PROGRESS NOTES Date of Service: DATE: 01/12/21 TIME: 09:30 Subjective Subjective Intubated and sedated Objective Objective Vital Signs Date Time Temp Pulse Resp B/P (MAP) Pulse Ox O2 Delivery O2 Flow Rate FiO2 01/12/21 09:03 70 110/63 01/12/21 08:31 95 Ventilator 01/12/21 07:56 98.9 98.9 01/11/21 16:00 12 Intake and Output 01/12/21 07:00 Intake Total 2980 ml Output Total 975 ml Balance 2005 ml IV Total 661 ml Tube Feeding 1519 ml Other 800 ml Output Urine Total 975 ml Physical Exam Abdomen: Normal bowel sounds, Soft Heart: Regular rate, Normal S1, Normal S2 Extremities: No edema, Other (left BKA) General: Other (sedated and oraly intubated ) HEENT: Atraumatic Lungs: Clear to auscultation MUSCULOSKELETAL: Osteoarthritic changes both hands Neck: Supple Neuro: Other (sedated) Psych/Mental Status: Other (sedated) Skin: No rashes Assessment Assessment 1. Acute on chronic systolic CHF; echo 10/26 with preserved LV systolic function. Echo this morning with LVEF 25% with pattern suggestive Takotsubo's cardiomyopathy. S/p IV diuresis. 2. Acute respiratory failure secondary to CHF 3. PEA arrest; s/p intubation. No VT/VF 4. NSTEMI: multifactorial with multiorgan failure 5. CAD; recent cath in May 2020 showed 60% stenosis involving LAD with negative IFR and 100% MULE PACKER involving moderate caliber obtuse marginal branch of left circumflex artery with left to left collaterals. 6. NILDA on CKD; marginal UOP. off dobutamine 7. Leukocytosis, UTI. cultures with E coli. ID following 8. Hypertension: presently hypotensive requiring pressor support 9. Hyperlipidemia: statin 10. Hypothyroidism: on levothyroxine 11. Diabetes, II 12. PAD s/p left BKA 13. RLE cellulitis; antibiotics as per IM 14. PAFIB; maintaining SR Recommendations Needs fluid offloading. Lasix. Continue heprain drip. Awaiting family in regards to goals of care. poor prognosis, possible comfort care. On Hospice prior to admission. Avoid nephrotoxins, follow renal recs Secondary prevention; ASA, statin, BB Supportive care Plan Plan of Care Problems Medical Problems: (1) CHF exacerbation Status: Acute (2) CKD (chronic kidney disease) Status: Acute (3) NSTEMI (non-ST elevated myocardial infarction) Status: Acute (4) Person under investigation for COVID-19 Status: Acute (5) Respiratory failure, unspecified with hypoxia Status: Acute (6) UTI (urinary tract infection) Status: Acute Comment Review of Relevant I have reviewed the following items helio (where applicable) has been applied. Labs Laboratory Tests Test 01/11/21 12:10 01/11/21 12:37 01/11/21 18:18 01/11/21 19:35 Heparin Anti-Xa Act, Unfractionated 0.29 IU/mL (0.30-0.70) 0.40 IU/mL (0.30-0.70) Glucose (Fingerstick) 199 mg/dL (70-99) 240 mg/dL (70-99) Test 01/11/21 23:37 01/12/21 01:20 01/12/21 05:44 01/12/21 06:25 Glucose (Fingerstick) 273 mg/dL (70-99) 298 mg/dL (70-99) Heparin Anti-Xa Act, Unfractionated 0.51 IU/mL (0.30-0.70) 0.44 IU/mL (0.30-0.70) White Blood Count 8.9 x10^3/uL (4.0-11.0) Red Blood Count 3.91 x10^6/uL (3.50-5.40) Hemoglobin 10.4 g/dL (12.0-15.5) Hematocrit 32.7 % (36.0-47.0) Mean Corpuscular Volume 84 fL (79-100) Mean Corpuscular Hemoglobin 27 pg (25-35) Mean Corpuscular Hemoglobin Concent 32 g/dL (31-37) Red Cell Distribution Width 14.5 % (11.5-14.5) Platelet Count 167 x10^3/uL (140-400) Neutrophils (%) (Auto) 81 % (31-73) Lymphocytes (%) (Auto) 9 % (24-48) Monocytes (%) (Auto) 9 % (0-9) Eosinophils (%) (Auto) 1 % (0-3) Basophils (%) (Auto) 0 % (0-3) Neutrophils # (Auto) 7.2 x10^3/uL (1.8-7.7) Lymphocytes # (Auto) 0.8 x10^3/uL (1.0-4.8) Monocytes # (Auto) 0.8 x10^3/uL (0.0-1.1) Eosinophils # (Auto) 0.1 x10^3/uL (0.0-0.7) Basophils # (Auto) 0.0 x10^3/uL (0.0-0.2) Sodium Level 141 mmol/L (136-145) Potassium Level 3.3 mmol/L (3.5-5.1) Chloride Level 102 mmol/L (98-107) Carbon Dioxide Level 30 mmol/L (21-32) Anion Gap 9 (6-14) Blood Urea Nitrogen 97 mg/dL (7-20) Creatinine 3.7 mg/dL (0.6-1.0) Estimated GFR (Cockcroft-Gault) 11.8 Glucose Level 303 mg/dL (70-99) Calcium Level 8.1 mg/dL (8.5-10.1) Magnesium Level 2.6 mg/dL (1.8-2.4) Test 01/12/21 08:45 O2 Saturation 93 % (92-99) Arterial Blood pH 7.42 (7.35-7.45) Arterial Blood pCO2 at Patient Temp 47 mmHg (35-46) Arterial Blood pO2 at Patient Temp 70 mmHg (65-108) Arterial Blood HCO3 30 mmol/L (21-28) Arterial Blood Base Excess 5 mmol/L (-3-3) FiO2 40 Microbiology 01/05/21 Blood Culture - Final, Complete NO GROWTH AFTER 5 DAYS 01/05/21 Urine Culture - Final, Complete 01/05/21 Antimicrobic Susceptibility - Final, Complete Medications Current Medications Piperacillin Sod/ Tazobactam Sod 2.25 gm/Sodium Chloride 50 ml @ 100 mls/hr Q8HRS IV Last administered on 01/12/21at 05:44; Start 01/11/21 at 14:00 Potassium Bicarbonate (Potassium Effervescent Tablet) 40 meq 1X ONCE PO Last administered on 01/11/21at 18:12; Start 01/11/21 at 18:00; Stop 01/11/21 at 18:01; Status DC Vitals/I & O Vital Sign - Last 24 Hours 01/11/21 01/11/21 01/11/21 01/11/21 10:00 11:00 12:00 12:03 Temp 98.6 98.6 Pulse 72 70 74 Resp 12 12 12 B/P (MAP) 105/55 106/55 107/55 Pulse Ox 97 97 97 97 O2 Delivery Ventilator Ventilator Ventilator Ventilator 01/11/21 01/11/21 01/11/21 01/11/21 12:06 12:49 13:00 14:00 Pulse 84 78 79 Resp 12 12 B/P (MAP) 107/55 111/50 112/51 Pulse Ox 98 97 O2 Delivery Mechanical Ventilator Ventilator Ventilator 01/11/21 01/11/21 01/11/21 01/11/21 15:00 16:00 16:00 16:02 Temp 99.4 99.4 Pulse 79 81 Resp 12 12 B/P (MAP) 100/55 100/55 Pulse Ox 97 97 98 O2 Delivery Ventilator Mechanical Ventilator Ventilator Ventilator 01/11/21 01/11/21 01/11/21 01/11/21 17:00 17:13 18:01 19:00 Temp 99.3 99.3 Pulse 80 84 87 B/P (MAP) 107/62 103/59 110/61 Pulse Ox 95 93 95 94 O2 Delivery Ventilator Ventilator Ventilator Ventilator 01/11/21 01/11/21 01/11/21 01/11/21 19:15 19:30 20:00 21:00 Temp 98.9 98.9 Pulse 82 B/P (MAP) 113/65 Pulse Ox 94 94 94 O2 Delivery Ventilator Mechanical Ventilator Ventilator Ventilator 01/11/21 01/11/21 01/11/21 01/11/21 21:00 22:00 23:00 23:00 Pulse 81 81 78 B/P (MAP) 108/61 109/61 122/67 Pulse Ox 96 96 93 93 O2 Delivery Ventilator Ventilator Ventilator Ventilator 01/11/21 01/12/21 01/12/21 01/12/21 23:30 00:01 01:00 01:00 Temp 98.4 98.4 Pulse 77 75 75 B/P (MAP) 98/49 105/53 104/54 Pulse Ox 94 96 95 O2 Delivery Mechanical Ventilator Ventilator Ventilator Ventilator 01/12/21 01/12/21 01/12/217/21 01:15 02:00 03:00 03:00 Pulse 73 72 B/P (MAP) 109/60 105/57 Pulse Ox 96 95 96 96 O2 Delivery Ventilator Ventilator Ventilator Ventilator 01/12/21 01/12/21 01/12/21 01/12/21 03:30 04:00 05:00 05:00 Temp 98.1 98.1 Pulse 74 74 B/P (MAP) 111/60 101/54 Pulse Ox 96 96 96 O2 Delivery Mechanical Ventilator Ventilator Ventilator Ventilator 01/12/21 01/12/21 01/12/21 01/12/21 06:00 07:00 07:56 08:31 Temp 98.9 98.9 Pulse 72 76 74 B/P (MAP) 110/60 104/53 104/53 Pulse Ox 96 92 92 95 O2 Delivery Ventilator Ventilator Ventilator Ventilator 01/12/21 09:03 Pulse 70 B/P (MAP) 110/63 Intake and Output 01/11/21 01/11/21 01/12/21 15:00 23:00 07:00 Intake Total 310 ml 1364 ml 1306 ml Output Total 380 ml 235 ml 360 ml Balance -70 ml 1129 ml 946 ml JAY SMYTH MD Jan 12, 2021 09:30
--- NOTE | 2021-01-12 12:29 | PDOC ---
PROGRESS NOTES Date of Service DATE: 01/12/21 TIME: 12:19 Subjective Subjective off sedation and intubated. vitals stable. making urine. bp is on low side of normal. blood sugars high. lab reviewed. potassium low 3.3. Objective Objective Vital Signs Date Time Temp Pulse Resp B/P (MAP) Pulse Ox O2 Delivery O2 Flow Rate FiO2 01/12/21 11:57 98.6 74 105/58 94 Ventilator 98.6 01/11/21 16:00 12 01/10/21 17:40 2.0 Intake and Output 01/12/21 07:06 Intake Total 2980 ml Output Total 975 ml Balance 2005 ml IV Total 661 ml Tube Feeding 1519 ml Other 800 ml Output Urine Total 975 ml Physical Exam Abdomen: Normal bowel sounds, Soft, No tenderness Heart: Regular rate, Normal S1, Normal S2 Extremities: No edema, Other (left BKA) General: Alert HEENT: Atraumatic Lungs: Other (clear anteriorly) Neuro: Other (unresponsive) Psych/Mental Status: Other (unresponsive) Skin: No rashes Assessment Assessment Problems1. Chest pain, resolved with sublingual nitroglycerin. 2. Non-ST segment elevated myocardial infarction. 3. Oshte-ek-itjaffc systolic congestive heart failure, 4. Leukocytosis resolved 5. Coronary artery disease, nonobstructive. 60% LAD 05/26 per cardiac cath 6. Diabetes mellitus type 2, on insulin with nephropathy and neuropathy. 7. Chronic kidney disease stage.3. 8. Hypertension. 9. Hyperlipidemia. 10. Hypothyroidism. 11. Obstructive sleep apnea. Treated with CPAP. 12. Morbid obesity. 13. Chronic venous insufficiency of the legs with left below-knee amputation, severe protein calorie malnutrition acute respiratory failure. hx of co2 narcosis in past acute kidney injury due to cardiorenal syndrome e. coli uti code blue/PEA 01/08/21 acute hypoxic and hypercapnic respiratory failure on ventilator hypokalemia acute metabolic/hypoxic encephalopathy Medical Problems: (1) CHF exacerbation Status: Acute (2) CKD (chronic kidney disease) Status: Acute (3) NSTEMI (non-ST elevated myocardial infarction) Status: Acute (4) Person under investigation for COVID-19 Status: Acute (5) Respiratory failure, unspecified with hypoxia Status: Acute (6) UTI (urinary tract infection) Status: Acute Plan Plan of Care continue ventilator support increase insulin continue nepro lab and cxr tomorrow await family decision tomorrow concerning care replete kcl Comment Review of Relevant I have reviewed the following items helio (where applicable) has been applied. Labs Laboratory Tests Test 01/10/21 13:10 01/10/21 17:25 01/10/21 18:08 01/10/21 23:25 Glucose (Fingerstick) 203 mg/dL (70-99) 177 mg/dL (70-99) Heparin Anti-Xa Act, Unfractionated 0.70 IU/mL (0.30-0.70) 0.58 IU/mL (0.30-0.70) Test 01/10/21 23:34 01/11/21 05:55 01/11/21 06:05 01/11/21 08:15 Glucose (Fingerstick) 183 mg/dL (70-99) 198 mg/dL (70-99) White Blood Count 8.8 x10^3/uL (4.0-11.0) Red Blood Count 3.95 x10^6/uL (3.50-5.40) Hemoglobin 10.5 g/dL (12.0-15.5) Hematocrit 33.0 % (36.0-47.0) Mean Corpuscular Volume 83 fL (79-100) Mean Corpuscular Hemoglobin 27 pg (25-35) Mean Corpuscular Hemoglobin Concent 32 g/dL (31-37) Red Cell Distribution Width 14.2 % (11.5-14.5) Platelet Count 167 x10^3/uL (140-400) Neutrophils (%) (Auto) 81 % (31-73) Lymphocytes (%) (Auto) 8 % (24-48) Monocytes (%) (Auto) 9 % (0-9) Eosinophils (%) (Auto) 1 % (0-3) Basophils (%) (Auto) 1 % (0-3) Neutrophils # (Auto) 7.2 x10^3/uL (1.8-7.7) Lymphocytes # (Auto) 0.7 x10^3/uL (1.0-4.8) Monocytes # (Auto) 0.8 x10^3/uL (0.0-1.1) Eosinophils # (Auto) 0.1 x10^3/uL (0.0-0.7) Basophils # (Auto) 0.0 x10^3/uL (0.0-0.2) Heparin Anti-Xa Act, Unfractionated 0.38 IU/mL (0.30-0.70) Sodium Level 144 mmol/L (136-145) Potassium Level 3.1 mmol/L (3.5-5.1) Chloride Level 104 mmol/L (98-107) Carbon Dioxide Level 30 mmol/L (21-32) Anion Gap 10 (6-14) Blood Urea Nitrogen 96 mg/dL (7-20) Creatinine 3.5 mg/dL (0.6-1.0) Estimated GFR (Cockcroft-Gault) 12.6 Glucose Level 207 mg/dL (70-99) Calcium Level 8.1 mg/dL (8.5-10.1) O2 Saturation 96 % (92-99) Arterial Blood pH 7.41 (7.35-7.45) Arterial Blood pCO2 at Patient Temp 48 mmHg (35-46) Arterial Blood pO2 at Patient Temp 88 mmHg (65-108) Arterial Blood HCO3 30 mmol/L (21-28) Arterial Blood Base Excess 4 mmol/L (-3-3) FiO2 50% ac12/500/5 Test 01/11/21 12:10 01/11/21 12:37 01/11/21 18:18 01/11/21 19:35 Heparin Anti-Xa Act, Unfractionated 0.29 IU/mL (0.30-0.70) 0.40 IU/mL (0.30-0.70) Glucose (Fingerstick) 199 mg/dL (70-99) 240 mg/dL (70-99) Test 01/11/21 23:37 01/12/21 01:20 01/12/21 05:44 01/12/21 06:25 Glucose (Fingerstick) 273 mg/dL (70-99) 298 mg/dL (70-99) Heparin Anti-Xa Act, Unfractionated 0.51 IU/mL (0.30-0.70) 0.44 IU/mL (0.30-0.70) White Blood Count 8.9 x10^3/uL (4.0-11.0) Red Blood Count 3.91 x10^6/uL (3.50-5.40) Hemoglobin 10.4 g/dL (12.0-15.5) Hematocrit 32.7 % (36.0-47.0) Mean Corpuscular Volume 84 fL (79-100) Mean Corpuscular Hemoglobin 27 pg (25-35) Mean Corpuscular Hemoglobin Concent 32 g/dL (31-37) Red Cell Distribution Width 14.5 % (11.5-14.5) Platelet Count 167 x10^3/uL (140-400) Neutrophils (%) (Auto) 81 % (31-73) Lymphocytes (%) (Auto) 9 % (24-48) Monocytes (%) (Auto) 9 % (0-9) Eosinophils (%) (Auto) 1 % (0-3) Basophils (%) (Auto) 0 % (0-3) Neutrophils # (Auto) 7.2 x10^3/uL (1.8-7.7) Lymphocytes # (Auto) 0.8 x10^3/uL (1.0-4.8) Monocytes # (Auto) 0.8 x10^3/uL (0.0-1.1) Eosinophils # (Auto) 0.1 x10^3/uL (0.0-0.7) Basophils # (Auto) 0.0 x10^3/uL (0.0-0.2) Sodium Level 141 mmol/L (136-145) Potassium Level 3.3 mmol/L (3.5-5.1) Chloride Level 102 mmol/L (98-107) Carbon Dioxide Level 30 mmol/L (21-32) Anion Gap 9 (6-14) Blood Urea Nitrogen 97 mg/dL (7-20) Creatinine 3.7 mg/dL (0.6-1.0) Estimated GFR (Cockcroft-Gault) 11.8 Glucose Level 303 mg/dL (70-99) Calcium Level 8.1 mg/dL (8.5-10.1) Magnesium Level 2.6 mg/dL (1.8-2.4) Test 01/12/21 08:45 01/12/21 11:49 O2 Saturation 93 % (92-99) Arterial Blood pH 7.42 (7.35-7.45) Arterial Blood pCO2 at Patient Temp 47 mmHg (35-46) Arterial Blood pO2 at Patient Temp 70 mmHg (65-108) Arterial Blood HCO3 30 mmol/L (21-28) Arterial Blood Base Excess 5 mmol/L (-3-3) FiO2 40 Glucose (Fingerstick) 296 mg/dL (70-99) Laboratory Tests Test 01/11/21 12:37 01/11/21 18:18 01/11/21 19:35 01/11/21 23:37 Glucose (Fingerstick) 199 mg/dL (70-99) 240 mg/dL (70-99) 273 mg/dL (70-99) Heparin Anti-Xa Act, Unfractionated 0.40 IU/mL (0.30-0.70) Test 01/12/21 01:20 01/12/21 05:44 01/12/21 06:25 01/12/21 08:45 Heparin Anti-Xa Act, Unfractionated 0.51 IU/mL (0.30-0.70) 0.44 IU/mL (0.30-0.70) Glucose (Fingerstick) 298 mg/dL (70-99) White Blood Count 8.9 x10^3/uL (4.0-11.0) Red Blood Count 3.91 x10^6/uL (3.50-5.40) Hemoglobin 10.4 g/dL (12.0-15.5) Hematocrit 32.7 % (36.0-47.0) Mean Corpuscular Volume 84 fL (79-100) Mean Corpuscular Hemoglobin 27 pg (25-35) Mean Corpuscular Hemoglobin Concent 32 g/dL (31-37) Red Cell Distribution Width 14.5 % (11.5-14.5) Platelet Count 167 x10^3/uL (140-400) Neutrophils (%) (Auto) 81 % (31-73) Lymphocytes (%) (Auto) 9 % (24-48) Monocytes (%) (Auto) 9 % (0-9) Eosinophils (%) (Auto) 1 % (0-3) Basophils (%) (Auto) 0 % (0-3) Neutrophils # (Auto) 7.2 x10^3/uL (1.8-7.7) Lymphocytes # (Auto) 0.8 x10^3/uL (1.0-4.8) Monocytes # (Auto) 0.8 x10^3/uL (0.0-1.1) Eosinophils # (Auto) 0.1 x10^3/uL (0.0-0.7) Basophils # (Auto) 0.0 x10^3/uL (0.0-0.2) Sodium Level 141 mmol/L (136-145) Potassium Level 3.3 mmol/L (3.5-5.1) Chloride Level 102 mmol/L (98-107) Carbon Dioxide Level 30 mmol/L (21-32) Anion Gap 9 (6-14) Blood Urea Nitrogen 97 mg/dL (7-20) Creatinine 3.7 mg/dL (0.6-1.0) Estimated GFR (Cockcroft-Gault) 11.8 Glucose Level 303 mg/dL (70-99) Calcium Level 8.1 mg/dL (8.5-10.1) Magnesium Level 2.6 mg/dL (1.8-2.4) O2 Saturation 93 % (92-99) Arterial Blood pH 7.42 (7.35-7.45) Arterial Blood pCO2 at Patient Temp 47 mmHg (35-46) Arterial Blood pO2 at Patient Temp 70 mmHg (65-108) Arterial Blood HCO3 30 mmol/L (21-28) Arterial Blood Base Excess 5 mmol/L (-3-3) FiO2 40 Test 01/12/21 11:49 Glucose (Fingerstick) 296 mg/dL (70-99) Microbiology 01/05/21 Blood Culture - Final, Complete NO GROWTH AFTER 5 DAYS 01/05/21 Urine Culture - Final, Complete 01/05/21 Antimicrobic Susceptibility - Final, Complete Medications Current Medications Furosemide (Lasix) 80 mg 1X ONCE IVP Last administered on 01/05/21at 09:21; Start 01/05/21 at 09:00; Stop 01/05/21 at 09:01; Status DC Nitroglycerin (Nitrostat) 0.4 mg PRN Q5MIN PRN SL CHEST PAIN Last administered on 01/08/21at 03:16; Start 01/05/21 at 09:30 Ceftriaxone Sodium (Rocephin) 1 gm 1X ONCE IVP Last administered on 01/05/21at 12:41; Start 01/05/21 at 12:00; Stop 01/05/21 at 12:09; Status DC Aspirin (Raulito Aspirin) 325 mg DAILY PO Last administered on 01/09/21at 08:12; Start 01/05/21 at 12:00; Stop 01/10/21 at 11:41; Status DC Insulin Human Lispro (HumaLOG) 4 units TIDAC SQ Last administered on 01/08/21at 08:25; Start 01/05/21 at 16:30; Stop 01/09/21 at 13:18; Status DC Insulin Glargine (Lantus Syringe) 12 unit QHS SQ Last administered on 01/08/21at 21:14; Start 01/05/21 at 21:00; Stop 01/09/21 at 13:18; Status DC Insulin Human Lispro (HumaLOG) 0-8 UNITS TIDWMEALS SQ Last administered on 01/05/21at 23:41; Start 01/05/21 at 17:00; Stop 01/09/21 at 13:18; Status DC Ondansetron HCl (Zofran Odt) 4 mg PRN Q6HRS PRN PO NAUSEA/VOMITING Last administered on 01/06/21at 23:20; Start 01/05/21 at 11:45 Ondansetron HCl (Zofran Odt) 4 mg TIDAC PO Last administered on 01/08/21at 08:16; Start 01/05/21 at 12:00; Stop 01/11/21 at 18:30; Status DC Levothyroxine Sodium (Synthroid) 150 mcg DAILY06 PO Last administered on 01/12/21at 05:42; Start 01/06/21 at 06:00 Furosemide (Lasix) 40 mg BID92 PO Last administered on 01/06/21at 08:38; Start 01/05/21 at 14:00; Stop 01/06/21 at 10:42; Status DC Metolazone (Zaroxolyn) 2.5 mg MoWeFr@0900 PO Last administered on 01/08/21at 08:17; Start 01/06/21 at 09:00; Stop 01/08/21 at 12:26; Status DC Potassium Chloride (Klor-Con) 20 meq BID PO Last administered on 01/06/21at 08:38; Start 01/05/21 at 21:00; Stop 01/06/21 at 10:42; Status DC Metoprolol Succinate (Toprol Xl) 50 mg DAILY PO Last administered on 01/12/21at 09:03; Start 01/06/21 at 09:00 Amlodipine Besylate (Norvasc) 5 mg DAILY PO Last administered on 01/08/21at 08:18; Start 01/06/21 at 09:00; Stop 01/09/21 at 13:18; Status DC Senna/Docusate Sodium (Senna Plus) 2 tab QHS PO Last administered on 01/11/21at 20:21; Start 01/05/21 at 21:00 Allopurinol (Zyloprim) 100 mg DAILY PO Last administered on 01/12/21at 09:03; Start 01/06/21 at 09:00 Atorvastatin Calcium (Lipitor) 40 mg QHS PO Last administered on 01/11/21at 20:21; Start 01/05/21 at 21:00 Paroxetine HCl (Paxil) 20 mg DAILY PO Last administered on 01/11/21at 12:49; Start 01/06/21 at 09:00; Stop 01/11/21 at 13:03; Status DC Piperacillin Sod/ Tazobactam Sod 3.375 gm/Sodium Chloride 50 ml @ 100 mls/hr Q6HRS IV Last administered on 01/06/21at 06:08; Start 01/05/21 at 12:00; Stop 01/06/21 at 10:42; Status DC Heparin Sodium (Porcine) (Heparin Sodium) 5,000 unit Q12HR SQ ; Start 01/05/21 at 21:00; Stop 01/05/21 at 18:35; Status DC Famotidine (Pepcid) 20 mg QHS PO Last administered on 01/11/21at 20:21; Start 01/05/21 at 21:00 Acetaminophen (Tylenol) 650 mg PRN Q6HRS PRN PO MILD PAIN / TEMP > 100.3'F Last administered on 01/10/21at 03:59; Start 01/05/21 at 12:15 Heparin Sodium/ Dextrose 250 ml @ 13.32 mls/ hr CONT PRN IV PER PROTOCOL Last administered on 01/06/21at 17:00; Start 01/05/21 at 19:00; Stop 01/07/21 at 14:35; Status DC Heparin Sodium (Porcine) (Heparin Sodium) 2,800 unit PRN Q6HRS PRN IV FOR UFH LEVEL LESS THAN 0.2 Last administered on 01/06/21at 21:30; Start 01/05/21 at 19:00; Stop 01/07/21 at 14:35; Status DC Perflutren Protein Type A Microsphe (Optison) 0.66 mg STK-MED ONCE IV ; Start 01/06/21 at 07:20; Stop 01/06/21 at 07:20; Status DC Perflutren Protein Type A Microsphe (Optison) 0.66 mg 1X ONCE IV ; Start 01/06/21 at 08:15; Stop 01/06/21 at 08:16; Status DC Piperacillin Sod/ Tazobactam Sod 2.25 gm/Sodium Chloride 50 ml @ 100 mls/hr Q6HRS IV Last administered on 01/08/21at 05:17; Start 01/06/21 at 12:00; Stop 01/08/21 at 10:40; Status DC Potassium Chloride (Klor-Con) 20 meq TID PO Last administered on 01/07/21at 08:44; Start 01/06/21 at 14:00; Stop 01/07/21 at 10:42; Status DC Furosemide (Lasix) 40 mg BID92 IVP Last administered on 01/07/21at 08:46; Start 01/06/21 at 14:00; Stop 01/07/21 at 10:42; Status DC Potassium Chloride (Klor-Con) 20 meq 1X ONCE PO Last administered on 01/06/21at 11:19; Start 01/06/21 at 11:30; Stop 01/06/21 at 11:31; Status DC Lactobacillus Rhamnosus (Culturelle) 1 cap BID PO Last administered on 01/12/21at 09:02; Start 01/06/21 at 21:00 Perflutren Protein Type A Microsphe (Optison) 0.66 mg STK-MED ONCE IV ; Start 01/06/21 at 08:00; Stop 01/07/21 at 09:00; Status DC Potassium Chloride (Klor-Con) 20 meq BID PO Last administered on 01/08/21at 08:16; Start 01/07/21 at 21:00; Stop 01/08/21 at 12:26; Status DC Furosemide (Lasix) 40 mg DAILY PO Last administered on 01/08/21at 08:16; Start 01/08/21 at 09:00; Stop 01/08/21 at 12:26; Status DC Potassium Chloride (Klor-Con) 20 meq 1X ONCE PO Last administered on 01/07/21at 11:07; Start 01/07/21 at 10:45; Stop 01/07/21 at 10:46; Status DC Bisacodyl (Dulcolax Supp) 10 mg PRN DAILY PRN CO CONSTIPATION Last administered on 01/08/21at 02:20; Start 01/08/21 at 02:15 Dobutamine HCl/ Dextrose 250 ml @ 17.43 mls/ hr CONT PRN IV SEE I/O RECORD Last administered on 01/08/21at 10:20; Start 01/08/21 at 10:00 Ceftriaxone Sodium (Rocephin) 1 gm Q24H IVP Last administered on 01/08/21at 11:06; Start 01/08/21 at 11:00; Stop 01/09/21 at 10:15; Status DC Heparin Sodium (Porcine) (Heparin Sodium) 5,000 unit Q12HR SQ Last administered on 01/09/21at 22:01; Start 01/08/21 at 13:00; Stop 01/10/21 at 05:35; Status DC Acetaminophen/ Hydrocodone Bitart (Lortab 5/325) 1 tab PRN Q4HRS PRN PO PAIN; Start 01/08/21 at 13:45; Status UNV Norepinephrine Bitartrate 8 mg/ Dextrose 258 ml @ 22.485 mls/ hr CONT PRN IV PER PROTOCOL Last administered on 01/09/21at 11:05; Start 01/08/21 at 19:00 Norepinephrine Bitartrate 8 mg/ Dextrose 258 ml @ 22.485 mls/ hr CONT PRN IV PER PROTOCOL; Start 01/08/21 at 19:00; Status UNV Fentanyl Citrate 30 ml @ 0 mls/hr CONT PRN IV SEE PROTOCOL Last administered on 01/11/21at 02:06; Start 01/08/21 at 19:00 Midazolam HCl 100 ml @ 1 mls/hr CONT PRN IV SEE PROTOCOL Last administered on 01/11/21at 03:51; Start 01/08/21 at 19:00 Propofol 100 ml @ 0.1 mls/hr CONT PRN IV PER PROTOCOL; Start 01/08/21 at 19:00 Chlorhexidine Gluconate (Peridex) 15 ml BID MM Last administered on 01/12/21at 09:03; Start 01/08/21 at 21:00 Glycerin/ Hypromellose/ Polyethylene (Artificial Tears) 1 drop PRN Q1HR PRN OU DRY EYE; Start 01/08/21 at 19:00 Dexmedetomidine HCl 400 mcg/ Sodium Chloride 100 ml @ 5.8 mls/hr CONT PRN IV PER PROTOCOL; Start 01/08/21 at 19:00 Sodium Chloride 500 ml @ 500 mls/hr 1X PRN PRN IV SEE COMMENTS; Start 01/08/21 at 19:00 Atropine Sulfate (ATROPINE 0.5mg SYRINGE) 0.5 mg PRN Q5MIN PRN IV SEE COMMENTS; Start 01/08/21 at 19:00 Ringer's Solution 1,000 ml @ 100 mls/hr Q10H IV Last administered on 01/08/21at 21:08; Start 01/08/21 at 20:15; Stop 01/10/21 at 08:42; Status DC Fentanyl Citrate (Fentanyl 2ml Vial) 100 mcg STK-MED ONCE .ROUTE ; Start 01/08/21 at 20:42; Stop 01/08/21 at 20:42; Status DC Piperacillin Sod/ Tazobactam Sod 2.25 gm/Sodium Chloride 50 ml @ 100 mls/hr Q6HRS IV Last administered on 01/11/21at 05:56; Start 01/09/21 at 12:00; Stop 01/11/21 at 12:38; Status DC Insulin Human Lispro (HumaLOG) 0-8 UNITS BG 400-49... Q6HRS SQ Last administered on 01/12/21at 11:54; Start 01/09/21 at 18:00 Heparin Sodium/ Dextrose 250 ml @ 10 mls/hr CONT PRN IV PER PROTOCOL Last administered on 01/12/21at 09:01; Start 01/10/21 at 05:30 Heparin Sodium (Porcine) (Heparin Sodium) 2,850 unit PRN Q6HRS PRN IV FOR UFH LEVEL LESS THAN 0.2 Last administered on 01/10/21at 13:08; Start 01/10/21 at 05:30 Info (Anti-Coagulation Monitoring By Pharmacy) 1 each PRN DAILY PRN MC PER PROTOCOL Last administered on 01/10/21at 10:00; Start 01/10/21 at 05:45 Furosemide (Lasix) 40 mg 1X ONCE IVP Last administered on 01/10/21at 09:15; Start 01/10/21 at 08:45; Stop 01/10/21 at 08:46; Status DC Aspirin (Aspirin Chewable) 81 mg DAILYWBKFT PO Last administered on 01/12/21at 09:02; Start 01/10/21 at 09:15 Linezolid (Zyvox) 600 mg BID PO Last administered on 01/12/21at 09:03; Start 01/10/21 at 16:00 Atropine Sulfate (ATROPINE 1mg SYRINGE) 1 mg STK-MED ONCE .ROUTE ; Start 01/05/21 at 16:07; Stop 01/10/21 at 16:08; Status DC Epinephrine HCl (EPINEPHrine SYRINGE) 2 mg STK-MED ONCE .ROUTE ; Start 01/05/21 at 16:07; Stop 01/10/21 at 16:08; Status DC Midazolam HCl (Versed) 5 mg STK-MED ONCE .ROUTE ; Start 01/05/21 at 16:07; Stop 01/10/21 at 16:08; Status DC Sodium Bicarbonate (Sodium Bicarb Adult 8.4% Syr) 100 meq STK-MED ONCE .ROUTE ; Start 01/05/21 at 16:07; Stop 01/10/21 at 16:08; Status DC Piperacillin Sod/ Tazobactam Sod 2.25 gm/Sodium Chloride 50 ml @ 100 mls/hr Q8HRS IV Last administered on 01/12/21at 05:44; Start 01/11/21 at 14:00 Potassium Bicarbonate (Potassium Effervescent Tablet) 40 meq 1X ONCE PO ; Start 01/11/21 at 09:00; Stop 01/11/21 at 13:05; Status DC Potassium Bicarbonate (Potassium Effervescent Tablet) 40 meq 1X ONCE PO Last administered on 01/11/21at 18:12; Start 01/11/21 at 18:00; Stop 01/11/21 at 18:01; Status DC Active Scripts Active Cephalexin 500 Mg Tablet 1 Tab PO TID 7 Days Thera-M Tablet (Multivits,Ca,Minerals/Iron/Fa) 1 Each Tablet 1 Tab PO DAILY Vitamin C (Ascorbic Acid) 500 Mg Tablet 500 Mg PO DAILY Lantus (Insulin Glargine,Hum.rec.anlog) 100 Unit/1 Ml Vial 12 Unit SQ QHS Metolazone 2.5 Mg Tablet 2.5 Mg PO QMWF Klor-Con M20 (Potassium Chloride) 20 Meq Tab.er.prt 20 Meq PO BID Toprol XL (Metoprolol Succinate) 50 Mg Tab.er.24h 50 Mg PO DAILY Furosemide 40 Mg Tablet 40 Mg PO BID Amlodipine Besylate 5 Mg Tablet 5 Mg PO DAILY Atorvastatin Calcium 40 Mg Tablet 40 Mg PO QHS Admelog (Insulin Lispro) 100 Unit/1 Ml Vial 6 Units SQ TIDAC hold if blood sugar less than 90 before a meal Nyamyc (Nystatin) 15 Gm Powder 1 Renee TP BID Stool Soft-Stimulant Lax Tab (Sennosides/Docusate Sodium) 1 Each Tablet 2 Tab PO DAILY Feosol (Ferrous Sulfate) 325 Mg Tablet 325 Mg PO QODAY Synthroid (Levothyroxine Sodium) 150 Mcg Tablet 150 Mcg PO DAILY06 Allopurinol 100 Mg Tablet 100 Mg PO DAILY Paroxetine Hcl 20 Mg Tablet 20 Mg PO DAILY Reported Aspirin 81 Mg Tab.chew 81 Mg PO HS Tylenol (Acetaminophen) 325 Mg Tablet 650 Mg PO PRN Q4HRS Vitals/I & O Vital Sign - Last 24 Hours 01/11/21 01/11/21 01/11/21 01/11/21 12:49 13:00 14:00 15:00 Pulse 84 78 79 79 Resp 12 12 12 B/P (MAP) 107/55 111/50 112/51 100/55 Pulse Ox 98 97 97 O2 Delivery Ventilator Ventilator Ventilator 01/11/21 01/11/21 01/11/21 01/11/21 16:00 16:00 16:02 17:00 Temp 99.4 99.3 99.4 99.3 Pulse 81 80 Resp 12 B/P (MAP) 100/55 107/62 Pulse Ox 97 98 95 O2 Delivery Mechanical Ventilator Ventilator Ventilator Ventilator 01/11/21 01/11/21 01/11/21 01/11/21 17:13 18:01 19:00 19:15 Pulse 84 87 B/P (MAP) 103/59 110/61 Pulse Ox 93 95 94 94 O2 Delivery Ventilator Ventilator Ventilator Ventilator 01/11/21 01/11/21 01/11/21 01/11/21 19:30 20:00 21:00 21:00 Temp 98.9 98.9 Pulse 82 81 B/P (MAP) 113/65 108/61 Pulse Ox 94 94 96 O2 Delivery Mechanical Ventilator Ventilator Ventilator Ventilator 01/11/21 01/11/21 01/11/21 01/11/21 22:00 23:00 23:00 23:30 Pulse 81 78 B/P (MAP) 109/61 122/67 Pulse Ox 96 93 93 O2 Delivery Ventilator Ventilator Ventilator Mechanical Ventilator 01/12/21 01/12/21 01/12/21 01/12/21 00:01 01:00 01:00 01:15 Temp 98.4 98.4 Pulse 77 75 75 B/P (MAP) 98/49 105/53 104/54 Pulse Ox 94 96 95 96 O2 Delivery Ventilator Ventilator Ventilator Ventilator 01/12/21 01/12/21 01/12/21 01/12/21 02:00 03:00 03:00 03:30 Pulse 73 72 B/P (MAP) 109/60 105/57 Pulse Ox 95 96 96 O2 Delivery Ventilator Ventilator Ventilator Mechanical Ventilator 01/12/21 01/12/21 01/12/21 01/12/21 04:00 05:00 05:00 06:00 Temp 98.1 98.1 Pulse 74 74 72 B/P (MAP) 111/60 101/54 110/60 Pulse Ox 96 96 96 96 O2 Delivery Ventilator Ventilator Ventilator Ventilator 01/12/21 01/12/21 01/12/21 01/12/21 07:00 07:45 07:56 08:31 Temp 98.9 98.9 Pulse 76 74 B/P (MAP) 104/53 104/53 Pulse Ox 92 92 95 O2 Delivery Ventilator Mechanical Ventilator Ventilator Ventilator 01/12/21 01/12/21 01/12/21 01/12/21 09:00 09:03 10:00 11:00 Pulse 74 70 72 71 B/P (MAP) 110/63 110/63 112/60 102/57 Pulse Ox 93 95 94 O2 Delivery Ventilator Ventilator Ventilator 01/12/21 01/12/21 11:56 11:57 Temp 98.6 98.6 Pulse 74 B/P (MAP) 105/58 Pulse Ox 94 94 O2 Delivery Ventilator Ventilator Intake and Output 01/11/21 01/11/21 01/12/21 15:06 23:06 07:06 Intake Total 310 ml 1364 ml 1306 ml Output Total 380 ml 235 ml 360 ml Balance -70 ml 1129 ml 946 ml Justifications for Admission Other Justification TERE ALLISON MD Jan 12, 2021 12:29
[2021-01-12] MEDS ORDERED: POTASSIUM BICARB 20 MEQ EFFERVESCENT TABLET. PO ONE (13:00)
--- NOTE | 2021-01-12 13:06 | PDOC ---
DATE OF SERVICE DATE: 01/12/21 TIME: 13:02 SUBJECTIVE ROS Remains Intubated OBJECTIVE Vital Signs Vital Signs Date Time Temp Pulse Resp B/P (MAP) Pulse Ox O2 Delivery O2 Flow Rate FiO2 01/12/21 11:57 98.6 74 105/58 94 Ventilator 98.6 01/11/21 16:00 12 I & 0 Intake and Output 01/12/21 07:00 Intake Total 2980 ml Output Total 975 ml Balance 2005 ml IV Total 661 ml Tube Feeding 1519 ml Other 800 ml Output Urine Total 975 ml PHYSICAL EXAM Physical Exam GENERAL: Intubated HEENT: Intubated NECK: Supple. LUNGS: Decreased breath sounds at the bases, CV: S1, S2. No murmurs. ABD: Soft, nontender, , obese. EXT: Left BKA prosthesis in place Right lower extremity, trace edema, DERM: Warm, dry. 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 Renal US 04/28 Mildly enlarged kidneys bilaterally . Proteinuria- 24 Hr Ur Pr < 500 mg . Patient didn't follow up with us as OP Acute on chronic systolic CHF; echo 10/26 with preserved LV systolic function.Recent Echo with LVEF 25% with pattern suggestive Takotsubo's CMP. IV Lasix prn per Cardiology Renal Calculus - chronic , seen on recent CT as well No hydronephrosis Pyuria. 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 Obesity. Anemia: Fe deficiency , SUTTON done in past - SPEP abnormal IgG and IgA, IgM normal, No M spike, K and L elevated , Ratio normal Hx of Coronary artery disease, nonobstructive. 60% LAD 05/26 per cardiac cath Hypertension currently Hypotensive Obstructive sleep apnea. Treated with CPAP. COMMENT/RELEVANT DATA Meds Current Medications Medications (Trade) Dose Ordered Sig/Meagan Start Time Stop Time Status Last Admin Dose Admin Acetaminophen (Tylenol) 650 mg PRN Q6HRS PRN 01/05/21 12:15 01/10/21 03:59 650 MG Acetaminophen/ Hydrocodone Bitart (Lortab 5/325) 1 tab PRN Q4HRS PRN 01/08/21 13:45 UNV Allopurinol (Zyloprim) 100 mg DAILY 01/06/21 09:00 01/12/21 09:03 100 MG Amlodipine Besylate (Norvasc) 5 mg DAILY 01/06/21 09:00 01/09/21 13:18 DC 01/08/21 08:18 5 MG Aspirin (Aspirin Chewable) 81 mg DAILYWBKFT 01/10/21 09:15 01/12/21 09:02 81 MG Aspirin (Raulito Aspirin) 325 mg DAILY 01/05/21 12:00 01/10/21 11:41 DC 01/09/21 08:12 325 MG Atorvastatin Calcium (Lipitor) 40 mg QHS 01/05/21 21:00 01/11/21 20:21 40 MG Atropine Sulfate (ATROPINE 0.5mg SYRINGE) 0.5 mg PRN Q5MIN PRN 01/08/21 19:00 Atropine Sulfate (ATROPINE 1mg SYRINGE) 1 mg STK-MED ONCE 01/05/21 16:07 01/10/21 16:08 DC Bisacodyl (Dulcolax Supp) 10 mg PRN DAILY PRN 01/08/21 02:15 01/08/21 02:20 10 MG Ceftriaxone Sodium (Rocephin) 1 gm Q24H 01/08/21 11:00 01/09/21 10:15 DC 01/08/21 11:06 1 GM Chlorhexidine Gluconate (Peridex) 15 ml BID 01/08/21 21:00 01/12/21 09:03 15 ML Dexmedetomidine HCl 400 mcg/ Sodium Chloride 100 ml @ 5.8 mls/hr CONT PRN 01/08/21 19:00 Dobutamine HCl/ Dextrose 250 ml @ 17.43 mls/ hr CONT PRN 01/08/21 10:00 01/08/21 10:20 17.43 MLS/HR Epinephrine HCl (EPINEPHrine SYRINGE) 2 mg STK-MED ONCE 01/05/21 16:07 01/10/21 16:08 DC Famotidine (Pepcid) 20 mg QHS 01/05/21 21:00 01/11/21 20:21 20 MG Fentanyl Citrate (Fentanyl 2ml Vial) 100 mcg STK-MED ONCE 01/08/21 20:42 01/08/21 20:42 DC Furosemide (Lasix) 40 mg 1X ONCE 01/10/21 08:45 01/10/21 08:46 DC 01/10/21 09:15 40 MG Glycerin/ Hypromellose/ Polyethylene (Artificial Tears) 1 drop PRN Q1HR PRN 01/08/21 19:00 Heparin Sodium (Porcine) (Heparin Sodium) 2,850 unit PRN Q6HRS PRN 01/10/21 05:30 01/10/21 13:08 2,850 UNIT Heparin Sodium/ Dextrose 250 ml @ 10 mls/hr CONT PRN 01/10/21 05:30 01/12/21 09:01 16.003 MLS/HR Info (Anti-Coagulation Monitoring By Pharmacy) 1 each PRN DAILY PRN 01/10/21 05:45 01/10/21 10:00 1 EACH Insulin Glargine (Lantus Syringe) 12 unit QHS 01/05/21 21:00 01/09/21 13:18 DC 01/08/21 21:14 12 UNIT Insulin Human Lispro (HumaLOG) 6 units Q6HRS 01/12/21 13:00 Lactobacillus Rhamnosus (Culturelle) 1 cap BID 01/06/21 21:00 01/12/21 09:02 1 CAP Levothyroxine Sodium (Synthroid) 150 mcg DAILY06 01/06/21 06:00 01/12/21 05:42 150 MCG Linezolid (Zyvox) 600 mg BID 01/10/21 16:00 01/12/21 09:03 600 MG Metolazone (Zaroxolyn) 2.5 mg MoWeFr@0900 01/06/21 09:00 01/08/21 12:26 DC 01/08/21 08:17 2.5 MG Metoprolol Succinate (Toprol Xl) 50 mg DAILY 01/06/21 09:00 01/12/21 09:03 50 MG Midazolam HCl (Versed) 5 mg STK-MED ONCE 01/05/21 16:07 01/10/21 16:08 DC Nitroglycerin (Nitrostat) 0.4 mg PRN Q5MIN PRN 01/05/21 09:30 01/08/21 03:16 0.4 MG Norepinephrine Bitartrate 8 mg/ Dextrose 258 ml @ 22.485 mls/ hr CONT PRN 01/08/21 19:00 UNV Ondansetron HCl (Zofran Odt) 4 mg TIDAC 01/05/21 12:00 01/11/21 18:30 DC 01/08/21 08:16 4 MG Paroxetine HCl (Paxil) 20 mg DAILY 01/06/21 09:00 01/11/21 13:03 DC 01/11/21 12:49 20 MG Perflutren Protein Type A Microsphe (Optison) 0.66 mg STK-MED ONCE 01/06/21 08:00 01/07/21 09:00 DC Piperacillin Sod/ Tazobactam Sod 2.25 gm/Sodium Chloride 50 ml @ 100 mls/hr Q8HRS 01/11/21 14:00 01/12/21 05:44 100 MLS/HR Piperacillin Sod/ Tazobactam Sod 3.375 gm/Sodium Chloride 50 ml @ 100 mls/hr Q6HRS 01/05/21 12:00 01/06/21 10:42 DC 01/06/21 06:08 100 MLS/HR Potassium Bicarbonate (Potassium Effervescent Tablet) 20 meq 1X ONCE 01/12/21 13:00 01/12/21 13:01 DC Potassium Chloride (Klor-Con) 20 meq 1X ONCE 01/07/21 10:45 01/07/21 10:46 DC 01/07/21 11:07 20 MEQ Propofol 100 ml @ 0.1 mls/hr CONT PRN 01/08/21 19:00 Ringer's Solution 1,000 ml @ 100 mls/hr Q10H 01/08/21 20:15 01/10/21 08:42 DC 01/08/21 21:08 100 MLS/HR Senna/Docusate Sodium (Senna Plus) 2 tab QHS 01/05/21 21:00 01/11/21 20:21 2 TAB Sodium Bicarbonate (Sodium Bicarb Adult 8.4% Syr) 100 meq STK-MED ONCE 01/05/21 16:07 01/10/21 16:08 DC Sodium Chloride 500 ml @ 500 mls/hr 1X PRN PRN 01/08/21 19:00 Lab Laboratory Tests Test 01/11/21 18:18 01/11/21 19:35 01/11/21 23:37 01/12/21 01:20 Glucose (Fingerstick) 240 mg/dL (70-99) 273 mg/dL (70-99) Heparin Anti-Xa Act, Unfractionated 0.40 IU/mL (0.30-0.70) 0.51 IU/mL (0.30-0.70) Test 01/12/21 05:44 01/12/21 06:25 01/12/21 08:45 01/12/21 11:49 Glucose (Fingerstick) 298 mg/dL (70-99) 296 mg/dL (70-99) White Blood Count 8.9 x10^3/uL (4.0-11.0) Red Blood Count 3.91 x10^6/uL (3.50-5.40) Hemoglobin 10.4 g/dL (12.0-15.5) Hematocrit 32.7 % (36.0-47.0) Mean Corpuscular Volume 84 fL (79-100) Mean Corpuscular Hemoglobin 27 pg (25-35) Mean Corpuscular Hemoglobin Concent 32 g/dL (31-37) Red Cell Distribution Width 14.5 % (11.5-14.5) Platelet Count 167 x10^3/uL (140-400) Neutrophils (%) (Auto) 81 % (31-73) Lymphocytes (%) (Auto) 9 % (24-48) Monocytes (%) (Auto) 9 % (0-9) Eosinophils (%) (Auto) 1 % (0-3) Basophils (%) (Auto) 0 % (0-3) Neutrophils # (Auto) 7.2 x10^3/uL (1.8-7.7) Lymphocytes # (Auto) 0.8 x10^3/uL (1.0-4.8) Monocytes # (Auto) 0.8 x10^3/uL (0.0-1.1) Eosinophils # (Auto) 0.1 x10^3/uL (0.0-0.7) Basophils # (Auto) 0.0 x10^3/uL (0.0-0.2) Heparin Anti-Xa Act, Unfractionated 0.44 IU/mL (0.30-0.70) Sodium Level 141 mmol/L (136-145) Potassium Level 3.3 mmol/L (3.5-5.1) Chloride Level 102 mmol/L (98-107) Carbon Dioxide Level 30 mmol/L (21-32) Anion Gap 9 (6-14) Blood Urea Nitrogen 97 mg/dL (7-20) Creatinine 3.7 mg/dL (0.6-1.0) Estimated GFR (Cockcroft-Gault) 11.8 Glucose Level 303 mg/dL (70-99) Calcium Level 8.1 mg/dL (8.5-10.1) Magnesium Level 2.6 mg/dL (1.8-2.4) O2 Saturation 93 % (92-99) Arterial Blood pH 7.42 (7.35-7.45) Arterial Blood pCO2 at Patient Temp 47 mmHg (35-46) Arterial Blood pO2 at Patient Temp 70 mmHg (65-108) Arterial Blood HCO3 30 mmol/L (21-28) Arterial Blood Base Excess 5 mmol/L (-3-3) FiO2 40 Results All relevant outside records, renal labs, imaging studies, telemetry/EKG's were reviewed. Justicifation of Admission Dx: Justifications for Admission: Justification of Admission Dx: N/A ISRAEL WHEAT MD Jan 12, 2021 13:06
[2021-01-12] MEDS: FAMOTIDINE 20 MG TABLET. PO SCH (20:36)
[2021-01-12] MEDS: SENNOSIDES/DOCUSATE 8.6/50MG TABLET. PO SCH (20:36)
[2021-01-12] MEDS: ATORVASTATIN CALCIUM 40 MG TABLET. PO SCH (20:36)
[2021-01-13] VITALS (24 sets, daily range): BP systolic 92–126; BP diastolic 47–72
[2021-01-13] MEDS: HEPARIN 25,000UTS/250ML PREMIX 250 ML IV PRN ×2 (01:00→20:35)
[2021-01-13 04:54] LABS: BASO % 0 % (0-3); EOS # 0.1 x10^3/uL (0.0-0.7); EOS % 1 % (0-3); HEMATOCRIT 32.7 % (36.0-47.0); HEMOGLOBIN 10.5 g/dL (12.0-15.5); LYMPH % 9 % (24-48); MEAN CORPUSCULAR HEMOGLOBIN 27 pg (25-35); MEAN CORPUSCULAR HGB CONC 32 g/dL (31-37); MEAN CORPUSCULAR VOLUME 84 fL (79-100); MONO % 9 % (0-9); NEUT # 9.1 x10^3/uL (1.8-7.7); NEUT % 81 % (31-73); PLATELET COUNT 185 x10^3/uL (140-400); RED BLOOD COUNT 3.89 x10^6/uL (3.50-5.40); RED CELL DISTRIBUTION WIDTH 14.5 % (11.5-14.5); WHITE BLOOD COUNT 11.3 x10^3/uL (4.0-11.0)
[2021-01-13 05:26] LABS: CALCIUM 8.3 mg/dL (8.5-10.1); CREATININE 3.9 mg/dL (0.6-1.0); GFR 11.1; MAGNESIUM 2.7 mg/dL (1.8-2.4); POTASSIUM 3.3 mmol/L (3.5-5.1)
[2021-01-13] MEDS: LEVOTHYROXINE 150 MCG TABLET PO SCH (05:37)
[2021-01-13] MEDS: INSULIN LISPRO 300 UNITS/3 ML VIAL. SQ SCH ×8 (05:37→23:59)
[2021-01-13] MEDS: PIPERACILLIN/TAZOBACTAM 2.25 GM in IV NORMAL SALINE 50ML 50 ML IV SCH ×3 (05:43→21:46)
--- NOTE | 2021-01-13 07:42 | RAD ---
XR CHEST 1V INDICATION: chf and respiratory failure . COMPARISON STUDY: 01/11/2021. FINDINGS: Life Support Devices: Stable endotracheal tube, enteric tube. Lungs: Normal lung volume. Slightly increased bilateral opacities. Pleura: Stable small bilateral pleural effusions. Heart and Mediastinum: Stable cardiomediastinal silhouette and great vessels. Bones and Soft Tissues: Stable regional skeleton and soft tissues. IMPRESSION: 1. Stable life support devices. 2. Slightly increased bilateral opacities. 3. Stable small bilateral pleural effusions. Electronically signed by: Yair Modi MD (01/13/2021 7:40 AM) [id number]
[2021-01-13 08:01] LABS: BASE EXCESS ABG 6 mmol/L (-3-3); HCO3 ABG 31 mmol/L (21-28); PCO2 ABG 50 mmHg (35-46); PO2 ABG 77 mmHg (65-108); SAT O2 ABG 95 % (92-99)
[2021-01-13 08:06] LABS: FIO2 ABG 40
--- NOTE | 2021-01-13 08:16 | PDOC ---
Infectious Disease Note Subjective: Subjective Patient remains on vent Patient unresponsive off sedation for last 36 hours afebrile last 24 hrs no pressor requirements Had constipation now loose bowel movement Discussed with nursing staff Vital Signs: Vital Signs Vital Signs Date Time Temp Pulse Resp B/P (MAP) Pulse Ox O2 Delivery O2 Flow Rate FiO2 01/13/21 07:42 95 Ventilator 01/13/21 07:00 64 12 96/53 01/13/21 04:00 98.3 98.3 Physical Exam: PHYSICAL EXAM GENERAL: Intubated\sedated HEENT: Normocephalic, atraumatic. ETT present LUNGS: Decreased breath sounds at the bases, some crackles. CARDIOVASCULAR: S1, S2. No murmurs. ABDOMEN: Soft, nontender, nondistended, obese. Bowel sounds present. 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 Stump looks healthy, just dry skin. Right lower extremity, trace edema, mild erythema which is at baseline, no warmth, no weeping lesions, much improved than last admission., Dry anterior acevedo wound not infected DERMATOLOGIC: Warm, dry. No generalized rash except for above. NEUROLOGIC: Intubated GENITOURINARY: Cifuentes in place, Medications: Inpatient Meds: Medications reviewed. Labs: Lab Laboratory Tests Test 01/12/21 08:45 01/12/21 11:49 01/12/21 18:41 01/12/21 23:32 O2 Saturation 93 % (92-99) Arterial Blood pH 7.42 (7.35-7.45) Arterial Blood pCO2 at Patient Temp 47 mmHg (35-46) Arterial Blood pO2 at Patient Temp 70 mmHg (65-108) Arterial Blood HCO3 30 mmol/L (21-28) Arterial Blood Base Excess 5 mmol/L (-3-3) FiO2 40 Glucose (Fingerstick) 296 mg/dL (70-99) 308 mg/dL (70-99) 228 mg/dL (70-99) Test 01/13/21 04:20 01/13/21 07:40 White Blood Count 11.3 x10^3/uL (4.0-11.0) Red Blood Count 3.89 x10^6/uL (3.50-5.40) Hemoglobin 10.5 g/dL (12.0-15.5) Hematocrit 32.7 % (36.0-47.0) Mean Corpuscular Volume 84 fL (79-100) Mean Corpuscular Hemoglobin 27 pg (25-35) Mean Corpuscular Hemoglobin Concent 32 g/dL (31-37) Red Cell Distribution Width 14.5 % (11.5-14.5) Platelet Count 185 x10^3/uL (140-400) Neutrophils (%) (Auto) 81 % (31-73) Lymphocytes (%) (Auto) 9 % (24-48) Monocytes (%) (Auto) 9 % (0-9) Eosinophils (%) (Auto) 1 % (0-3) Basophils (%) (Auto) 0 % (0-3) Neutrophils # (Auto) 9.1 x10^3/uL (1.8-7.7) Lymphocytes # (Auto) 1.0 x10^3/uL (1.0-4.8) Monocytes # (Auto) 1.0 x10^3/uL (0.0-1.1) Eosinophils # (Auto) 0.1 x10^3/uL (0.0-0.7) Basophils # (Auto) 0.0 x10^3/uL (0.0-0.2) Heparin Anti-Xa Act, Unfractionated 0.56 IU/mL (0.30-0.70) Sodium Level 143 mmol/L (136-145) Potassium Level 3.3 mmol/L (3.5-5.1) Chloride Level 104 mmol/L (98-107) Carbon Dioxide Level 31 mmol/L (21-32) Anion Gap 8 (6-14) Blood Urea Nitrogen 104 mg/dL (7-20) Creatinine 3.9 mg/dL (0.6-1.0) Estimated GFR (Cockcroft-Gault) 11.1 Glucose Level 213 mg/dL (70-99) Calcium Level 8.3 mg/dL (8.5-10.1) Magnesium Level 2.7 mg/dL (1.8-2.4) O2 Saturation 95 % (92-99) Arterial Blood pH 7.42 (7.35-7.45) Arterial Blood pCO2 at Patient Temp 50 mmHg (35-46) Arterial Blood pO2 at Patient Temp 77 mmHg (65-108) Arterial Blood HCO3 31 mmol/L (21-28) Arterial Blood Base Excess 6 mmol/L (-3-3) FiO2 40 Micro RUN DATE: 01/08/21 [facility] *LIVE* PAGE 1 RUN TIME: 827 Specimen Inquiry PATIENT: DIMAS REDMOND ACCT: [id number] LOC: [address] [place] [address] U: [id number] AGE/SX: 80/F ROOM: [facility] RE01/05/[address]: TERE ALLISON MD : 1940 BED: 1 DIS: STATUS: ADM IN TLOC: SPEC #: [id number] ONEL: 01/05/21 STATUS: COMP REQ #: [id number] RECD: 01/05/[address]: ARY MURILLO DO SOURCE: VOID ENTR: 01/05/[address]: TERE ALLISON MD SPDESC: JOAQUIM LI MD ORDERED: URINE CULTURE - Procedure Result URINE CULTURE Final Final >100,000 CFU/ML [ESCHERICHIA COLI] Testing Performed by: [address] [address] For Inquires, the Physician may contact the Microbiology department at [phone] ESCHERICHIA COLI ANTIMICROBIAL SUSCEPTIBILITY Final Comment NEG BIRGIT 56 ESCHERICHIA COLI ANTIBIOTIC RESULT INTERPRETATION AMPICILLIN/SULBACTAM 8/4 S AMIKACIN <=16 S AMPICILLIN >16 R AMOXICILLIN/K CLAVULANATE >16/8 R AZTREONAM <=4 S CEFTRIAXONE <=1 S CEFTAZIDIME <=1 S CEFOTAXIME <=2 S CEFOXITIN <=8 S CEFAZOLIN 8 S CIPROFLOXACIN <=0.25 S CEFEPIME <=2 S CEFUROXIME 8 S CEFTAZIDIME/AVIBACTAM <=4 S ERTAPENEM <=0.5 S NITROFURANTOIN <=32 S GENTAMICIN <=2 S LEVOFLOXACIN <=0.5 S MEROPENEM <=1 S PIPERACILLIN/TAZOBACTAM <=8 S TRIMETHOPRIM/SULFAMETHOXAZOLE <=0.5/9.5 S TETRACYCLINE <=4 S TOBRAMYCIN <=2 S Unless otherwise specified, Testing Performed by: [facility] RUN DATE: 01/08/21 [facility] *LIVE* PAGE 2 RUN TIME: 827 Specimen Inquiry SPEC: [id number] PATIENT: DIMAS REDMOND [id number] (Continued) ---- -------- Procedure Result CONTINUED ON NEXT PAGE RUN DATE: 01/08/21 [facility] *LIVE* PAGE 3 RUN TIME: 827 Specimen Inquiry SPEC: [id number] PATIENT: DIMAS REDMOND [id number] (Continued) Procedure Result ANTIMICROBIAL SUSCEPTIBILITY Final (continued) [address] [place] [address] For Inquires, the Physician may contact the Microbiology department at [phone] Blood cultures negative Objective: Assessment: Patient's condition has deteriorated Acute hypoxic respiratory failure status post intubation Asystole status post CODE BLUE January 08, 2021 1. Leukocytosis, 2. E. coli UTI resistant to Augmentin 3. History of extended spectrum beta-lactamase Escherichia coli urinary tract infection in the past. 4. 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 5. Congestive heart failure. 6. Chest pain. 7. NILDA with chronic kidney disease. 8. Diabetes mellitus 2. 9. History of left [id number] amputation. Plan: Plan of Care Continue Zosyn/ Zyvox Monitor closely as pt is on sertaline Monitor labs and cultures. Continue supportive care. Critically ill Prognosis is very poor Consider comfort measures Discussed with friend at bedside Discussed with LADARIUS MARTINEZ MD Jan 13, 2021 08:16
[2021-01-13] MEDS: CHLORHEXIDINE 0.12% 15 ML MOUTHWASH. MM SCH ×2 (09:00→20:35)
[2021-01-13] MEDS: ASPIRIN CHEWABLE 81 MG TABLET. PO SCH (09:08)
[2021-01-13] MEDS: ALLOPURINOL 100 MG TABLET. PO SCH (09:08)
[2021-01-13] MEDS: LINEZOLID 600 MG TABLET PO SCH ×2 (09:08→20:35)
[2021-01-13] MEDS: LACTOBACILLUS RHAMNOSUS GG 1 CAPSULE. PO SCH ×2 (09:08→20:35)
[2021-01-13] MEDS: METOPROLOL SUCC 24HR ER 50 MG TAB.ER.24H. PO SCH (09:09)
--- NOTE | 2021-01-13 10:18 | PDOC ---
Renal-Progress Notes Subjective Notes Notes UNRESPONSIVE ON THE VENT History of Present Illness Hx of present illness NOT GETTING ANY BETTER Vitals Vitals Vital Signs Date Time Temp Pulse Resp B/P (MAP) Pulse Ox O2 Delivery O2 Flow Rate FiO2 01/13/21 09:09 65 100/55 01/13/21 09:02 96 Ventilator 01/13/21 08:00 98.1 12 98.1 Weight Weight [ ] I.O. Intake and Output Intake and Output 01/13/21 07:00 Intake Total 2449 ml Output Total 680 ml Balance 1769 ml IV Total 252 ml Tube Feeding 1497 ml Other 700 ml Output Urine Total 680 ml Labs Labs Laboratory Tests Test 01/12/21 11:49 01/12/21 18:41 01/12/21 23:32 01/13/21 04:20 Glucose (Fingerstick) 296 mg/dL (70-99) 308 mg/dL (70-99) 228 mg/dL (70-99) White Blood Count 11.3 x10^3/uL (4.0-11.0) Red Blood Count 3.89 x10^6/uL (3.50-5.40) Hemoglobin 10.5 g/dL (12.0-15.5) Hematocrit 32.7 % (36.0-47.0) Mean Corpuscular Volume 84 fL (79-100) Mean Corpuscular Hemoglobin 27 pg (25-35) Mean Corpuscular Hemoglobin Concent 32 g/dL (31-37) Red Cell Distribution Width 14.5 % (11.5-14.5) Platelet Count 185 x10^3/uL (140-400) Neutrophils (%) (Auto) 81 % (31-73) Lymphocytes (%) (Auto) 9 % (24-48) Monocytes (%) (Auto) 9 % (0-9) Eosinophils (%) (Auto) 1 % (0-3) Basophils (%) (Auto) 0 % (0-3) Neutrophils # (Auto) 9.1 x10^3/uL (1.8-7.7) Lymphocytes # (Auto) 1.0 x10^3/uL (1.0-4.8) Monocytes # (Auto) 1.0 x10^3/uL (0.0-1.1) Eosinophils # (Auto) 0.1 x10^3/uL (0.0-0.7) Basophils # (Auto) 0.0 x10^3/uL (0.0-0.2) Heparin Anti-Xa Act, Unfractionated 0.56 IU/mL (0.30-0.70) Sodium Level 143 mmol/L (136-145) Potassium Level 3.3 mmol/L (3.5-5.1) Chloride Level 104 mmol/L (98-107) Carbon Dioxide Level 31 mmol/L (21-32) Anion Gap 8 (6-14) Blood Urea Nitrogen 104 mg/dL (7-20) Creatinine 3.9 mg/dL (0.6-1.0) Estimated GFR (Cockcroft-Gault) 11.1 Glucose Level 213 mg/dL (70-99) Calcium Level 8.3 mg/dL (8.5-10.1) Magnesium Level 2.7 mg/dL (1.8-2.4) Test 01/13/21 07:40 O2 Saturation 95 % (92-99) Arterial Blood pH 7.42 (7.35-7.45) Arterial Blood pCO2 at Patient Temp 50 mmHg (35-46) Arterial Blood pO2 at Patient Temp 77 mmHg (65-108) Arterial Blood HCO3 31 mmol/L (21-28) Arterial Blood Base Excess 6 mmol/L (-3-3) FiO2 40 Micro Micro Microbiology 01/05/21 Blood Culture - Final, Complete NO GROWTH AFTER 5 DAYS 01/05/21 Urine Culture - Final, Complete 01/05/21 Antimicrobic Susceptibility - Final, Complete Review of Systems Constitutional: yes: unresponsive Physical Exam General Appearance: no apparent distress Skin: warm Respiratory: ventilator (Mode:A/C), decreased breath sounds Heart: S1S2 Abdomen: soft Extremities: pulses present, no edema, atrophy Neurology: other (ON THE VENT, NOT SEDATED) Musculoskeletal: Osteoarthritis Assessment Assessment IMP [id number] WITH CR OF 3.9-OLIGURIC ACUTE RESP FAILURE S/P CODE BLUE WITH ASYSTOLE URINARY TRACT INFECTION LEUCOCYTOSIS CM WITH EF OF 25% DM II ? ANOXIC BRAIN INJURY PLAN PT NEEDS DIALYSIS SOON WELL HEART CATH PT HAS NOT BEEN ON SEDATION SINCE SAT WITH NO IMPROVEMENT CONT VENT SUPPORT FOR NOW CONT TF FOR NOW WILL ASK NEUROLOGY TO EVALUATE REGARDING HER BRAIN FUNCTION IF SEVER ANOXIC BRAIN INJURY THEN FAMILY AGREEABLE TO COMFORT MEASURES IF NOT WILL PLAN TO INITIATE DIALYSIS TOMORROW AND HEART CATH PER CARDIOLOGY D/W SON AND D/W DR BHANDARI WILL FOLLOW TIFFANY SIDDIQUI MD Jan 13, 2021 10:18
--- NOTE | 2021-01-13 10:24 | PDOC ---
PULMONARY PROGRESS NOTES DATE: 01/13/21 TIME: 10:21 Subjective on vent peep 5 fio2 40%, off sedation since Wednesday. No response scan ett secretion. Triggers the ventilator Vitals Vital Signs Date Time Temp Pulse Resp B/P (MAP) Pulse Ox O2 Delivery O2 Flow Rate FiO2 01/13/21 09:09 65 100/55 01/13/21 09:02 96 Ventilator 01/13/21 08:00 98.1 12 98.1 Comments on vent sedate ros unable to obtain HEENT: Other (nc at perrl orally intubated nose clear neck no lad no thyromegaly) Lungs: Clear Cardiovascular: S1, S2 Abdomen: Soft, Non-tender Extremities: Other (Status post left BKA) Skin: Warm Labs Laboratory Tests Test 01/11/21 12:10 01/11/21 12:37 01/11/21 18:18 01/11/21 19:35 Heparin Anti-Xa Act, Unfractionated 0.29 IU/mL (0.30-0.70) 0.40 IU/mL (0.30-0.70) Glucose (Fingerstick) 199 mg/dL (70-99) 240 mg/dL (70-99) Test 01/11/21 23:37 01/12/21 01:20 01/12/21 05:44 01/12/21 06:25 Glucose (Fingerstick) 273 mg/dL (70-99) 298 mg/dL (70-99) Heparin Anti-Xa Act, Unfractionated 0.51 IU/mL (0.30-0.70) 0.44 IU/mL (0.30-0.70) White Blood Count 8.9 x10^3/uL (4.0-11.0) Red Blood Count 3.91 x10^6/uL (3.50-5.40) Hemoglobin 10.4 g/dL (12.0-15.5) Hematocrit 32.7 % (36.0-47.0) Mean Corpuscular Volume 84 fL (79-100) Mean Corpuscular Hemoglobin 27 pg (25-35) Mean Corpuscular Hemoglobin Concent 32 g/dL (31-37) Red Cell Distribution Width 14.5 % (11.5-14.5) Platelet Count 167 x10^3/uL (140-400) Neutrophils (%) (Auto) 81 % (31-73) Lymphocytes (%) (Auto) 9 % (24-48) Monocytes (%) (Auto) 9 % (0-9) Eosinophils (%) (Auto) 1 % (0-3) Basophils (%) (Auto) 0 % (0-3) Neutrophils # (Auto) 7.2 x10^3/uL (1.8-7.7) Lymphocytes # (Auto) 0.8 x10^3/uL (1.0-4.8) Monocytes # (Auto) 0.8 x10^3/uL (0.0-1.1) Eosinophils # (Auto) 0.1 x10^3/uL (0.0-0.7) Basophils # (Auto) 0.0 x10^3/uL (0.0-0.2) Sodium Level 141 mmol/L (136-145) Potassium Level 3.3 mmol/L (3.5-5.1) Chloride Level 102 mmol/L (98-107) Carbon Dioxide Level 30 mmol/L (21-32) Anion Gap 9 (6-14) Blood Urea Nitrogen 97 mg/dL (7-20) Creatinine 3.7 mg/dL (0.6-1.0) Estimated GFR (Cockcroft-Gault) 11.8 Glucose Level 303 mg/dL (70-99) Calcium Level 8.1 mg/dL (8.5-10.1) Magnesium Level 2.6 mg/dL (1.8-2.4) Test 01/12/21 08:45 01/12/21 11:49 01/12/21 18:41 01/12/21 23:32 O2 Saturation 93 % (92-99) Arterial Blood pH 7.42 (7.35-7.45) Arterial Blood pCO2 at Patient Temp 47 mmHg (35-46) Arterial Blood pO2 at Patient Temp 70 mmHg (65-108) Arterial Blood HCO3 30 mmol/L (21-28) Arterial Blood Base Excess 5 mmol/L (-3-3) FiO2 40 Glucose (Fingerstick) 296 mg/dL (70-99) 308 mg/dL (70-99) 228 mg/dL (70-99) Test 01/13/21 04:20 01/13/21 07:40 White Blood Count 11.3 x10^3/uL (4.0-11.0) Red Blood Count 3.89 x10^6/uL (3.50-5.40) Hemoglobin 10.5 g/dL (12.0-15.5) Hematocrit 32.7 % (36.0-47.0) Mean Corpuscular Volume 84 fL (79-100) Mean Corpuscular Hemoglobin 27 pg (25-35) Mean Corpuscular Hemoglobin Concent 32 g/dL (31-37) Red Cell Distribution Width 14.5 % (11.5-14.5) Platelet Count 185 x10^3/uL (140-400) Neutrophils (%) (Auto) 81 % (31-73) Lymphocytes (%) (Auto) 9 % (24-48) Monocytes (%) (Auto) 9 % (0-9) Eosinophils (%) (Auto) 1 % (0-3) Basophils (%) (Auto) 0 % (0-3) Neutrophils # (Auto) 9.1 x10^3/uL (1.8-7.7) Lymphocytes # (Auto) 1.0 x10^3/uL (1.0-4.8) Monocytes # (Auto) 1.0 x10^3/uL (0.0-1.1) Eosinophils # (Auto) 0.1 x10^3/uL (0.0-0.7) Basophils # (Auto) 0.0 x10^3/uL (0.0-0.2) Heparin Anti-Xa Act, Unfractionated 0.56 IU/mL (0.30-0.70) Sodium Level 143 mmol/L (136-145) Potassium Level 3.3 mmol/L (3.5-5.1) Chloride Level 104 mmol/L (98-107) Carbon Dioxide Level 31 mmol/L (21-32) Anion Gap 8 (6-14) Blood Urea Nitrogen 104 mg/dL (7-20) Creatinine 3.9 mg/dL (0.6-1.0) Estimated GFR (Cockcroft-Gault) 11.1 Glucose Level 213 mg/dL (70-99) Calcium Level 8.3 mg/dL (8.5-10.1) Magnesium Level 2.7 mg/dL (1.8-2.4) O2 Saturation 95 % (92-99) Arterial Blood pH 7.42 (7.35-7.45) Arterial Blood pCO2 at Patient Temp 50 mmHg (35-46) Arterial Blood pO2 at Patient Temp 77 mmHg (65-108) Arterial Blood HCO3 31 mmol/L (21-28) Arterial Blood Base Excess 6 mmol/L (-3-3) FiO2 40 Laboratory Tests Test 01/12/21 11:49 01/12/21 18:41 01/12/21 23:32 01/13/21 04:20 Glucose (Fingerstick) 296 mg/dL (70-99) 308 mg/dL (70-99) 228 mg/dL (70-99) White Blood Count 11.3 x10^3/uL (4.0-11.0) Red Blood Count 3.89 x10^6/uL (3.50-5.40) Hemoglobin 10.5 g/dL (12.0-15.5) Hematocrit 32.7 % (36.0-47.0) Mean Corpuscular Volume 84 fL (79-100) Mean Corpuscular Hemoglobin 27 pg (25-35) Mean Corpuscular Hemoglobin Concent 32 g/dL (31-37) Red Cell Distribution Width 14.5 % (11.5-14.5) Platelet Count 185 x10^3/uL (140-400) Neutrophils (%) (Auto) 81 % (31-73) Lymphocytes (%) (Auto) 9 % (24-48) Monocytes (%) (Auto) 9 % (0-9) Eosinophils (%) (Auto) 1 % (0-3) Basophils (%) (Auto) 0 % (0-3) Neutrophils # (Auto) 9.1 x10^3/uL (1.8-7.7) Lymphocytes # (Auto) 1.0 x10^3/uL (1.0-4.8) Monocytes # (Auto) 1.0 x10^3/uL (0.0-1.1) Eosinophils # (Auto) 0.1 x10^3/uL (0.0-0.7) Basophils # (Auto) 0.0 x10^3/uL (0.0-0.2) Heparin Anti-Xa Act, Unfractionated 0.56 IU/mL (0.30-0.70) Sodium Level 143 mmol/L (136-145) Potassium Level 3.3 mmol/L (3.5-5.1) Chloride Level 104 mmol/L (98-107) Carbon Dioxide Level 31 mmol/L (21-32) Anion Gap 8 (6-14) Blood Urea Nitrogen 104 mg/dL (7-20) Creatinine 3.9 mg/dL (0.6-1.0) Estimated GFR (Cockcroft-Gault) 11.1 Glucose Level 213 mg/dL (70-99) Calcium Level 8.3 mg/dL (8.5-10.1) Magnesium Level 2.7 mg/dL (1.8-2.4) Test 01/13/21 07:40 O2 Saturation 95 % (92-99) Arterial Blood pH 7.42 (7.35-7.45) Arterial Blood pCO2 at Patient Temp 50 mmHg (35-46) Arterial Blood pO2 at Patient Temp 77 mmHg (65-108) Arterial Blood HCO3 31 mmol/L (21-28) Arterial Blood Base Excess 6 mmol/L (-3-3) FiO2 40 Medications Active Scripts Medications Dose Route/Sig Max Daily Dose Days Date Category Dose Instructions Cephalexin 500 Mg Tablet 1 Tab PO TID 7 07/05/20 Rx Thera-M Tablet (Multivits,Ca,Minerals/Iron/Fa) 1 Each Tablet 1 Tab PO DAILY 07/05/20 Rx Vitamin C (Ascorbic Acid) 500 Mg Tablet 500 Mg PO DAILY 07/05/20 Rx Lantus (Insulin Glargine,Hum.rec.anlog) 100 Unit/1 Ml Vial 12 Unit SQ QHS 07/05/20 Rx Metolazone 2.5 Mg Tablet 2.5 Mg PO QMWF 07/05/20 Rx Klor-Con M20 (Potassium Chloride) 20 Meq Tab.er.prt 20 Meq PO BID 07/05/20 Rx Toprol XL (Metoprolol Succinate) 50 Mg Tab.er.24h 50 Mg PO DAILY 07/05/20 Rx Furosemide 40 Mg Tablet 40 Mg PO BID 06/12/20 Rx Amlodipine Besylate 5 Mg Tablet 5 Mg PO DAILY 06/12/20 Rx Atorvastatin Calcium 40 Mg Tablet 40 Mg PO QHS 06/12/20 Rx Admelog (Insulin Lispro) 100 Unit/1 Ml Vial 6 Units SQ TIDAC 06/04/20 Rx hold if blood sugar less than 90 before a meal Nyamyc (Nystatin) 15 Gm Powder 1 Renee TP BID 05/12/20 Rx Stool Soft-Stimulant Lax Tab (Sennosides/Docusate Sodium) 1 Each Tablet 2 Tab PO DAILY 05/12/20 Rx Feosol (Ferrous Sulfate) 325 Mg Tablet 325 Mg PO QODAY 05/12/20 Rx Aspirin 81 Mg Tab.chew 81 Mg PO HS 05/03/20 Reported Synthroid (Levothyroxine Sodium) 150 Mcg Tablet 150 Mcg PO DAILY06 05/21/19 Rx Allopurinol 100 Mg Tablet 100 Mg PO DAILY 05/21/19 Rx Paroxetine Hcl 20 Mg Tablet 20 Mg PO DAILY 05/21/19 Rx Tylenol (Acetaminophen) 325 Mg Tablet 650 Mg PO PRN Q4HRS 05/19/13 Reported Comments cxr reviewed Improving aeration of the lungs with decrease in size of now small right pleural effusion with adjacent compressive atelectasis versus infiltrate. Similar to marginally improved degree of moderate pulmonary vascular congestion. Impression . IMPRESSION: 1. Acute on chronic hypoxemic hypercapnic respiratory failure. 2. Acute on chronic diastolic heart failure. 3. Peripheral arterial disease, status post left knee amputation. 4. Obstructive sleep apnea. 5. Chest pain per Cardiology./Cardiomyopathy ejection fraction 25% 6. Leukocytosis related to urinary tract infection, Escherichia coli. Infectious Disease has been following. 7. Hypothyroidism. 8. Type 2 diabetes. 9. Paroxysmal atrial fibrillation. 10. Status post CODE BLUE 11. Acute renal failure Plan . Updated 01/13 Continue vent support setting reviewed, off sedation sbt when alert. So far not responsive. She does trigger the vent. Cannot exclude the possibility of anoxic brain injury. Post sedation encephalopathy would be another etiology in the setting of renal failure and delayed clearance of medications elevate hob abx per id pepcid hep for prophylaxis Overall prognosis is poor DNR discussed w rn I have discussed with patient's son and father. I have explained to them patient's clinical situation. I have also discussed with nephrology Dr. Loco. Neurology consultation has been obtained. We will continue to monitor for her neurological improvement while she remains off sedation. Decision to pursue with dialysis and possible cardiac cath will depend on her neurological recovery. Updated 01/12 Continue vent support setting reviewed, off sedation sbt when alert elevate hob abx per id pepcid hep for prophylaxis Overall prognosis is poor DNR discussed w rn Updated 01/11 Continue vent support setting reviewed, decrease sedation sbt when alert elevate hob abx per id pepcid hep for prophylaxis Overall prognosis is poor Patient is currently DNR discuss w rn Updated 01/10 Continue current support Discussed case with son yesterday Discussed case with Dr. Rollins yesterday Overall prognosis is poor Patient is currently DNR Updated 01/09 Case discussed with son at the bedside who is the DPOA, I informed him that patient had multiorgan failure, I recommend withdrawing care and allowing natural Patient has advanced directive, did not want to be placed on mechanical support She was on hospice prior to this admission We will continue current support, awaiting family decision for possible comfort care Case discussed with RN and RT Case discussed with Dr. Lara Total cumulative critical care time of 30 minutes with no overlap BILL BHANDARI MD Jan 13, 2021 10:24
--- NOTE | 2021-01-13 10:35 | PDOC ---
PROGRESS NOTES Date of Service: DATE: 01/13/21 TIME: 10:35 Subjective Subjective Remains intubated Objective Objective Vital Signs Date Time Temp Pulse Resp B/P (MAP) Pulse Ox O2 Delivery O2 Flow Rate FiO2 01/13/21 09:09 65 100/55 01/13/21 09:02 96 Ventilator 01/13/21 08:00 98.1 12 98.1 Intake and Output 01/13/21 07:00 Intake Total 2449 ml Output Total 680 ml Balance 1769 ml IV Total 252 ml Tube Feeding 1497 ml Other 700 ml Output Urine Total 680 ml Physical Exam Abdomen: Normal bowel sounds, Soft, No tenderness Heart: Regular rate, Normal S1, Normal S2 Extremities: No edema, Other (left BKA) General: Alert HEENT: Atraumatic Lungs: Other (clear anteriorly) MUSCULOSKELETAL: Osteoarthritic changes both hands Neck: Supple Neuro: Other (unresponsive) Psych/Mental Status: Other (unresponsive) Skin: No rashes Assessment Assessment 1. Acute on chronic systolic CHF; echo 10/26 with preserved LV systolic function. Echo this morning with LVEF 25% with pattern suggestive Takotsubo's cardiomyopathy. S/p IV diuresis. 2. Acute respiratory failure secondary to CHF 3. PEA arrest; s/p intubation. No VT/VF 4. NSTEMI: multifactorial with multiorgan failure 5. CAD; recent cath in May 2020 showed 60% stenosis involving LAD with negative IFR and 100% PRESS TENDER involving moderate caliber obtuse marginal branch of left circumflex artery with left to left collaterals. 6. NILDA on CKD; marginal UOP. off dobutamine 7. Leukocytosis, UTI. cultures with E coli. ID following 8. Hypertension: presently hypotensive requiring pressor support 9. Hyperlipidemia: statin 10. Hypothyroidism: on levothyroxine 11. Diabetes, II 12. PAD s/p left BKA 13. RLE cellulitis; antibiotics as per IM 14. PAFIB; maintaining SR Recommendations Neurology consulted for prognostication Needs fluid offloading. Lasix. Continue heprain drip. Awaiting family in regards to goals of care. poor prognosis, possible comfort care. On Hospice prior to admission. Avoid nephrotoxins, follow renal recs Secondary prevention; ASA, statin, BB Supportive care Plan Plan of Care Problems Medical Problems: (1) CHF exacerbation Status: Acute (2) CKD (chronic kidney disease) Status: Acute (3) NSTEMI (non-ST elevated myocardial infarction) Status: Acute (4) Person under investigation for COVID-19 Status: Acute (5) Respiratory failure, unspecified with hypoxia Status: Acute (6) UTI (urinary tract infection) Status: Acute Comment Review of Relevant I have reviewed the following items helio (where applicable) has been applied. Labs Laboratory Tests Test 01/12/21 11:49 01/12/21 18:41 01/12/21 23:32 01/13/21 04:20 Glucose (Fingerstick) 296 mg/dL (70-99) 308 mg/dL (70-99) 228 mg/dL (70-99) White Blood Count 11.3 x10^3/uL (4.0-11.0) Red Blood Count 3.89 x10^6/uL (3.50-5.40) Hemoglobin 10.5 g/dL (12.0-15.5) Hematocrit 32.7 % (36.0-47.0) Mean Corpuscular Volume 84 fL (79-100) Mean Corpuscular Hemoglobin 27 pg (25-35) Mean Corpuscular Hemoglobin Concent 32 g/dL (31-37) Red Cell Distribution Width 14.5 % (11.5-14.5) Platelet Count 185 x10^3/uL (140-400) Neutrophils (%) (Auto) 81 % (31-73) Lymphocytes (%) (Auto) 9 % (24-48) Monocytes (%) (Auto) 9 % (0-9) Eosinophils (%) (Auto) 1 % (0-3) Basophils (%) (Auto) 0 % (0-3) Neutrophils # (Auto) 9.1 x10^3/uL (1.8-7.7) Lymphocytes # (Auto) 1.0 x10^3/uL (1.0-4.8) Monocytes # (Auto) 1.0 x10^3/uL (0.0-1.1) Eosinophils # (Auto) 0.1 x10^3/uL (0.0-0.7) Basophils # (Auto) 0.0 x10^3/uL (0.0-0.2) Heparin Anti-Xa Act, Unfractionated 0.56 IU/mL (0.30-0.70) Sodium Level 143 mmol/L (136-145) Potassium Level 3.3 mmol/L (3.5-5.1) Chloride Level 104 mmol/L (98-107) Carbon Dioxide Level 31 mmol/L (21-32) Anion Gap 8 (6-14) Blood Urea Nitrogen 104 mg/dL (7-20) Creatinine 3.9 mg/dL (0.6-1.0) Estimated GFR (Cockcroft-Gault) 11.1 Glucose Level 213 mg/dL (70-99) Calcium Level 8.3 mg/dL (8.5-10.1) Magnesium Level 2.7 mg/dL (1.8-2.4) Test 01/13/21 07:40 O2 Saturation 95 % (92-99) Arterial Blood pH 7.42 (7.35-7.45) Arterial Blood pCO2 at Patient Temp 50 mmHg (35-46) Arterial Blood pO2 at Patient Temp 77 mmHg (65-108) Arterial Blood HCO3 31 mmol/L (21-28) Arterial Blood Base Excess 6 mmol/L (-3-3) FiO2 40 Microbiology 01/05/21 Blood Culture - Final, Complete NO GROWTH AFTER 5 DAYS 01/05/21 Urine Culture - Final, Complete 01/05/21 Antimicrobic Susceptibility - Final, Complete Medications Current Medications Insulin Human Lispro (HumaLOG) 6 units Q6HRS SQ Last administered on 01/13/21at 05:38; Start 01/12/21 at 13:00 Potassium Bicarbonate (Potassium Effervescent Tablet) 20 meq 1X ONCE PO Last administered on 01/12/21at 14:06; Start 01/12/21 at 13:00; Stop 01/12/21 at 13:01; Status DC Vitals/I & O Vital Sign - Last 24 Hours 01/12/21 01/12/21 01/12/21 01/12/21 11:00 11:56 11:57 12:00 Temp 98.6 98.6 Pulse 71 74 B/P (MAP) 102/57 105/58 Pulse Ox 94 94 94 O2 Delivery Ventilator Ventilator Ventilator Mechanical Ventilator 01/12/21 01/12/21 01/12/21 01/12/21 13:00 13:58 14:00 15:00 Pulse 72 76 73 B/P (MAP) 109/56 97/49 103/59 Pulse Ox 94 96 94 95 O2 Delivery Ventilator Ventilator Ventilator Ventilator 01/12/21 01/12/21 01/12/21 01/12/21 15:42 16:00 16:00 16:30 Temp 98.9 98.9 Pulse 72 B/P (MAP) 105/56 Pulse Ox 95 95 94 O2 Delivery Ventilator Mechanical Ventilator Ventilator Ventilator 01/12/21 01/12/21 01/12/21 01/12/21 17:00 18:00 19:00 19:00 Pulse 74 76 72 B/P (MAP) 102/56 106/60 108/56 Pulse Ox 94 94 94 94 O2 Delivery Ventilator Ventilator Ventilator Ventilator 01/12/21 01/12/21 01/12/21 01/12/21 19:30 20:00 21:00 21:00 Temp 98.0 98.0 Pulse 77 73 Resp 12 B/P (MAP) 111/60 113/58 Pulse Ox 95 94 94 O2 Delivery Mechanical Ventilator Ventilator Ventilator Ventilator 01/12/21 01/12/21 01/12/21 01/12/21 22:00 23:00 23:30 23:30 Pulse 73 74 Resp 12 12 B/P (MAP) 107/58 113/62 Pulse Ox 95 91 95 O2 Delivery Ventilator Ventilator Ventilator Mechanical Ventilator 01/13/21 01/13/21 01/13/21 01/13/21 00:01 01:00 01:05 02:00 Temp 98.4 98.4 Pulse 69 71 69 Resp 12 12 12 B/P (MAP) 97/50 94/48 104/61 Pulse Ox 94 96 95 94 O2 Delivery Ventilator Ventilator Ventilator Ventilator 01/13/21 01/13/21 01/13/21 01/13/21 03:00 03:00 04:00 04:00 Temp 98.3 98.3 Pulse 66 67 Resp 12 12 B/P (MAP) 102/53 97/52 Pulse Ox 95 95 94 O2 Delivery Ventilator Ventilator Mechanical Ventilator Ventilator 01/13/21 01/13/21 01/13/21 01/13/21 05:00 05:15 06:00 07:00 Pulse 68 66 64 Resp 12 12 12 B/P (MAP) 92/47 97/53 96/53 Pulse Ox 95 96 95 96 O2 Delivery Ventilator Ventilator Ventilator Ventilator 01/13/21 01/13/21 01/13/21 01/13/21 07:42 08:00 08:00 09:02 Temp 98.1 98.1 Pulse 67 Resp 12 B/P (MAP) 95/54 Pulse Ox 95 96 96 O2 Delivery Ventilator Mechanical Ventilator Ventilator Ventilator 01/13/21 09:09 Pulse 65 B/P (MAP) 100/55 Intake and Output 01/12/21 01/12/21 01/13/21 15:00 23:00 07:00 Intake Total 440 ml 867 ml 1142 ml Output Total 255 ml 200 ml 225 ml Balance 185 ml 667 ml 917 ml JAY SMYTH MD Jan 13, 2021 10:35
--- NOTE | 2021-01-13 10:38 | PDOC ---
PROGRESS NOTES Date of Service DATE: 01/13/21 TIME: 10:33 Subjective Subjective unresponsive off of sedation intubated. lab reviewed. discussed with son DPJULIO C. as per dr. Loco will consult dr. Arnett. will order ct head. potassium 3.3. has hyperglycemia Objective Objective Vital Signs Date Time Temp Pulse Resp B/P (MAP) Pulse Ox O2 Delivery O2 Flow Rate FiO2 01/13/21 09:09 65 100/55 01/13/21 09:02 96 Ventilator 01/13/21 08:00 98.1 12 98.1 01/10/21 17:40 2.0 Intake and Output 01/13/21 07:00 Intake Total 2449 ml Output Total 680 ml Balance 1769 ml IV Total 252 ml Tube Feeding 1497 ml Other 700 ml Output Urine Total 680 ml Physical Exam Abdomen: Soft, Other (obese) Heart: Regular rate, Normal S1, Normal S2 Extremities: No edema General: Alert, Other (unresponsive connected to ventilator) HEENT: Atraumatic Lungs: Clear to auscultation, Other (oral intubation) Neck: Supple Neuro: Other (unresponsive. pupils equal) Psych/Mental Status: Other (unresponsive) Skin: No rashes Assessment Assessment Problems1. Chest pain, resolved with sublingual nitroglycerin. 2. Non-ST segment elevated myocardial infarction. 3. [id number] systolic congestive heart failure, 4. Leukocytosis resolved 5. Coronary artery disease, nonobstructive. 60% LAD 05/26 per cardiac cath 6. Diabetes mellitus type 2, on insulin with nephropathy and neuropathy. 7. Chronic kidney disease stage.3. 8. Hypertension. 9. Hyperlipidemia. 10. Hypothyroidism. 11. Obstructive sleep apnea. Treated with CPAP. 12. Morbid obesity. 13. Chronic venous insufficiency of the legs with left below-knee amputation, severe protein calorie malnutrition acute respiratory failure. hx of co2 narcosis in past acute kidney injury due to cardiorenal syndrome e. coli uti code blue/PEA 01/08/21 acute hypoxic and hypercapnic respiratory failure on ventilator hypokalemia acute metabolic/hypoxic encephalopathy Medical Problems: (1) CHF exacerbation Status: Acute (2) CKD (chronic kidney disease) Status: Acute (3) NSTEMI (non-ST elevated myocardial infarction) Status: Acute (4) Person under investigation for COVID-19 Status: Acute (5) Respiratory failure, unspecified with hypoxia Status: Acute (6) UTI (urinary tract infection) Status: Acute Plan Plan of Care ct head without contrast consult dr. Arnett if poor neurologic prognosis family will will no be inclined due to hemodialysis or cardiac cath and suspect will withdrawal care replete kcl increase insulin continue ventilator support continue iv heparin continue tube feeding discussed with DPOA and and her nurse Comment Review of Relevant I have reviewed the following items helio (where applicable) has been applied. Labs Laboratory Tests Test 01/11/21 12:10 01/11/21 12:37 01/11/21 18:18 01/11/21 19:35 Heparin Anti-Xa Act, Unfractionated 0.29 IU/mL (0.30-0.70) 0.40 IU/mL (0.30-0.70) Glucose (Fingerstick) 199 mg/dL (70-99) 240 mg/dL (70-99) Test 01/11/21 23:37 01/12/21 01:20 01/12/21 05:44 01/12/21 06:25 Glucose (Fingerstick) 273 mg/dL (70-99) 298 mg/dL (70-99) Heparin Anti-Xa Act, Unfractionated 0.51 IU/mL (0.30-0.70) 0.44 IU/mL (0.30-0.70) White Blood Count 8.9 x10^3/uL (4.0-11.0) Red Blood Count 3.91 x10^6/uL (3.50-5.40) Hemoglobin 10.4 g/dL (12.0-15.5) Hematocrit 32.7 % (36.0-47.0) Mean Corpuscular Volume 84 fL (79-100) Mean Corpuscular Hemoglobin 27 pg (25-35) Mean Corpuscular Hemoglobin Concent 32 g/dL (31-37) Red Cell Distribution Width 14.5 % (11.5-14.5) Platelet Count 167 x10^3/uL (140-400) Neutrophils (%) (Auto) 81 % (31-73) Lymphocytes (%) (Auto) 9 % (24-48) Monocytes (%) (Auto) 9 % (0-9) Eosinophils (%) (Auto) 1 % (0-3) Basophils (%) (Auto) 0 % (0-3) Neutrophils # (Auto) 7.2 x10^3/uL (1.8-7.7) Lymphocytes # (Auto) 0.8 x10^3/uL (1.0-4.8) Monocytes # (Auto) 0.8 x10^3/uL (0.0-1.1) Eosinophils # (Auto) 0.1 x10^3/uL (0.0-0.7) Basophils # (Auto) 0.0 x10^3/uL (0.0-0.2) Sodium Level 141 mmol/L (136-145) Potassium Level 3.3 mmol/L (3.5-5.1) Chloride Level 102 mmol/L (98-107) Carbon Dioxide Level 30 mmol/L (21-32) Anion Gap 9 (6-14) Blood Urea Nitrogen 97 mg/dL (7-20) Creatinine 3.7 mg/dL (0.6-1.0) Estimated GFR (Cockcroft-Gault) 11.8 Glucose Level 303 mg/dL (70-99) Calcium Level 8.1 mg/dL (8.5-10.1) Magnesium Level 2.6 mg/dL (1.8-2.4) Test 01/12/21 08:45 01/12/21 11:49 01/12/21 18:41 01/12/21 23:32 O2 Saturation 93 % (92-99) Arterial Blood pH 7.42 (7.35-7.45) Arterial Blood pCO2 at Patient Temp 47 mmHg (35-46) Arterial Blood pO2 at Patient Temp 70 mmHg (65-108) Arterial Blood HCO3 30 mmol/L (21-28) Arterial Blood Base Excess 5 mmol/L (-3-3) FiO2 40 Glucose (Fingerstick) 296 mg/dL (70-99) 308 mg/dL (70-99) 228 mg/dL (70-99) Test 01/13/21 04:20 01/13/21 07:40 White Blood Count 11.3 x10^3/uL (4.0-11.0) Red Blood Count 3.89 x10^6/uL (3.50-5.40) Hemoglobin 10.5 g/dL (12.0-15.5) Hematocrit 32.7 % (36.0-47.0) Mean Corpuscular Volume 84 fL (79-100) Mean Corpuscular Hemoglobin 27 pg (25-35) Mean Corpuscular Hemoglobin Concent 32 g/dL (31-37) Red Cell Distribution Width 14.5 % (11.5-14.5) Platelet Count 185 x10^3/uL (140-400) Neutrophils (%) (Auto) 81 % (31-73) Lymphocytes (%) (Auto) 9 % (24-48) Monocytes (%) (Auto) 9 % (0-9) Eosinophils (%) (Auto) 1 % (0-3) Basophils (%) (Auto) 0 % (0-3) Neutrophils # (Auto) 9.1 x10^3/uL (1.8-7.7) Lymphocytes # (Auto) 1.0 x10^3/uL (1.0-4.8) Monocytes # (Auto) 1.0 x10^3/uL (0.0-1.1) Eosinophils # (Auto) 0.1 x10^3/uL (0.0-0.7) Basophils # (Auto) 0.0 x10^3/uL (0.0-0.2) Heparin Anti-Xa Act, Unfractionated 0.56 IU/mL (0.30-0.70) Sodium Level 143 mmol/L (136-145) Potassium Level 3.3 mmol/L (3.5-5.1) Chloride Level 104 mmol/L (98-107) Carbon Dioxide Level 31 mmol/L (21-32) Anion Gap 8 (6-14) Blood Urea Nitrogen 104 mg/dL (7-20) Creatinine 3.9 mg/dL (0.6-1.0) Estimated GFR (Cockcroft-Gault) 11.1 Glucose Level 213 mg/dL (70-99) Calcium Level 8.3 mg/dL (8.5-10.1) Magnesium Level 2.7 mg/dL (1.8-2.4) O2 Saturation 95 % (92-99) Arterial Blood pH 7.42 (7.35-7.45) Arterial Blood pCO2 at Patient Temp 50 mmHg (35-46) Arterial Blood pO2 at Patient Temp 77 mmHg (65-108) Arterial Blood HCO3 31 mmol/L (21-28) Arterial Blood Base Excess 6 mmol/L (-3-3) FiO2 40 Laboratory Tests Test 01/12/21 11:49 01/12/21 18:41 01/12/21 23:32 01/13/21 04:20 Glucose (Fingerstick) 296 mg/dL (70-99) 308 mg/dL (70-99) 228 mg/dL (70-99) White Blood Count 11.3 x10^3/uL (4.0-11.0) Red Blood Count 3.89 x10^6/uL (3.50-5.40) Hemoglobin 10.5 g/dL (12.0-15.5) Hematocrit 32.7 % (36.0-47.0) Mean Corpuscular Volume 84 fL (79-100) Mean Corpuscular Hemoglobin 27 pg (25-35) Mean Corpuscular Hemoglobin Concent 32 g/dL (31-37) Red Cell Distribution Width 14.5 % (11.5-14.5) Platelet Count 185 x10^3/uL (140-400) Neutrophils (%) (Auto) 81 % (31-73) Lymphocytes (%) (Auto) 9 % (24-48) Monocytes (%) (Auto) 9 % (0-9) Eosinophils (%) (Auto) 1 % (0-3) Basophils (%) (Auto) 0 % (0-3) Neutrophils # (Auto) 9.1 x10^3/uL (1.8-7.7) Lymphocytes # (Auto) 1.0 x10^3/uL (1.0-4.8) Monocytes # (Auto) 1.0 x10^3/uL (0.0-1.1) Eosinophils # (Auto) 0.1 x10^3/uL (0.0-0.7) Basophils # (Auto) 0.0 x10^3/uL (0.0-0.2) Heparin Anti-Xa Act, Unfractionated 0.56 IU/mL (0.30-0.70) Sodium Level 143 mmol/L (136-145) Potassium Level 3.3 mmol/L (3.5-5.1) Chloride Level 104 mmol/L (98-107) Carbon Dioxide Level 31 mmol/L (21-32) Anion Gap 8 (6-14) Blood Urea Nitrogen 104 mg/dL (7-20) Creatinine 3.9 mg/dL (0.6-1.0) Estimated GFR (Cockcroft-Gault) 11.1 Glucose Level 213 mg/dL (70-99) Calcium Level 8.3 mg/dL (8.5-10.1) Magnesium Level 2.7 mg/dL (1.8-2.4) Test 01/13/21 07:40 O2 Saturation 95 % (92-99) Arterial Blood pH 7.42 (7.35-7.45) Arterial Blood pCO2 at Patient Temp 50 mmHg (35-46) Arterial Blood pO2 at Patient Temp 77 mmHg (65-108) Arterial Blood HCO3 31 mmol/L (21-28) Arterial Blood Base Excess 6 mmol/L (-3-3) FiO2 40 Microbiology 01/05/21 Blood Culture - Final, Complete NO GROWTH AFTER 5 DAYS 01/05/21 Urine Culture - Final, Complete 01/05/21 Antimicrobic Susceptibility - Final, Complete Medications Current Medications Furosemide (Lasix) 80 mg 1X ONCE IVP Last administered on 01/05/21at 09:21; Start 01/05/21 at 09:00; Stop 01/05/21 at 09:01; Status DC Nitroglycerin (Nitrostat) 0.4 mg PRN Q5MIN PRN SL CHEST PAIN Last administered on 01/08/21at 03:16; Start 01/05/21 at 09:30 Ceftriaxone Sodium (Rocephin) 1 gm 1X ONCE IVP Last administered on 01/05/21at 12:41; Start 01/05/21 at 12:00; Stop 01/05/21 at 12:09; Status DC Aspirin (Raulito Aspirin) 325 mg DAILY PO Last administered on 01/09/21at 08:12; Start 01/05/21 at 12:00; Stop 01/10/21 at 11:41; Status DC Insulin Human Lispro (HumaLOG) 4 units TIDAC SQ Last administered on 01/08/21at 08:25; Start 01/05/21 at 16:30; Stop 01/09/21 at 13:18; Status DC Insulin Glargine (Lantus Syringe) 12 unit QHS SQ Last administered on 01/08/21at 21:14; Start 01/05/21 at 21:00; Stop 01/09/21 at 13:18; Status DC Insulin Human Lispro (HumaLOG) 0-8 UNITS TIDWMEALS SQ Last administered on 01/05/21at 23:41; Start 01/05/21 at 17:00; Stop 01/09/21 at 13:18; Status DC Ondansetron HCl (Zofran Odt) 4 mg PRN Q6HRS PRN PO NAUSEA/VOMITING Last administered on 01/06/21at 23:20; Start 01/05/21 at 11:45 Ondansetron HCl (Zofran Odt) 4 mg TIDAC PO Last administered on 01/08/21at 08:16; Start 01/05/21 at 12:00; Stop 01/11/21 at 18:30; Status DC Levothyroxine Sodium (Synthroid) 150 mcg DAILY06 PO Last administered on 01/13/21at 05:37; Start 01/06/21 at 06:00 Furosemide (Lasix) 40 mg BID92 PO Last administered on 01/06/21at 08:38; Start 01/05/21 at 14:00; Stop 01/06/21 at 10:42; Status DC Metolazone (Zaroxolyn) 2.5 mg MoWeFr@0900 PO Last administered on 01/08/21at 08:17; Start 01/06/21 at 09:00; Stop 01/08/21 at 12:26; Status DC Potassium Chloride (Klor-Con) 20 meq BID PO Last administered on 01/06/21at 08:38; Start 01/05/21 at 21:00; Stop 01/06/21 at 10:42; Status DC Metoprolol Succinate (Toprol Xl) 50 mg DAILY PO Last administered on 01/13/21at 09:09; Start 01/06/21 at 09:00 Amlodipine Besylate (Norvasc) 5 mg DAILY PO Last administered on 01/08/21at 08:18; Start 01/06/21 at 09:00; Stop 01/09/21 at 13:18; Status DC Senna/Docusate Sodium (Senna Plus) 2 tab QHS PO Last administered on 01/12/21at 20:36; Start 01/05/21 at 21:00 Allopurinol (Zyloprim) 100 mg DAILY PO Last administered on 01/13/21at 09:08; Start 01/06/21 at 09:00 Atorvastatin Calcium (Lipitor) 40 mg QHS PO Last administered on 01/12/21at 20:36; Start 01/05/21 at 21:00 Paroxetine HCl (Paxil) 20 mg DAILY PO Last administered on 01/11/21at 12:49; Start 01/06/21 at 09:00; Stop 01/11/21 at 13:03; Status DC Piperacillin Sod/ Tazobactam Sod 3.375 gm/Sodium Chloride 50 ml @ 100 mls/hr Q6HRS IV Last administered on 01/06/21at 06:08; Start 01/05/21 at 12:00; Stop 01/06/21 at 10:42; Status DC Heparin Sodium (Porcine) (Heparin Sodium) 5,000 unit Q12HR SQ ; Start 01/05/21 at 21:00; Stop 01/05/21 at 18:35; Status DC Famotidine (Pepcid) 20 mg QHS PO Last administered on 01/12/21at 20:36; Start 01/05/21 at 21:00 Acetaminophen (Tylenol) 650 mg PRN Q6HRS PRN PO MILD PAIN / TEMP > 100.3'F Last administered on 01/10/21at 03:59; Start 01/05/21 at 12:15 Heparin Sodium/ Dextrose 250 ml @ 13.32 mls/ hr CONT PRN IV PER PROTOCOL Last administered on 01/06/21at 17:00; Start 01/05/21 at 19:00; Stop 01/07/21 at 14:35; Status DC Heparin Sodium (Porcine) (Heparin Sodium) 2,800 unit PRN Q6HRS PRN IV FOR UFH LEVEL LESS THAN 0.2 Last administered on 01/06/21at 21:30; Start 01/05/21 at 19:00; Stop 01/07/21 at 14:35; Status DC Perflutren Protein Type A Microsphe (Optison) 0.66 mg STK-MED ONCE IV ; Start 01/06/21 at 07:20; Stop 01/06/21 at 07:20; Status DC Perflutren Protein Type A Microsphe (Optison) 0.66 mg 1X ONCE IV ; Start 01/06/21 at 08:15; Stop 01/06/21 at 08:16; Status DC Piperacillin Sod/ Tazobactam Sod 2.25 gm/Sodium Chloride 50 ml @ 100 mls/hr Q6HRS IV Last administered on 01/08/21at 05:17; Start 01/06/21 at 12:00; Stop 01/08/21 at 10:40; Status DC Potassium Chloride (Klor-Con) 20 meq TID PO Last administered on 01/07/21at 08:4 4; Start 01/06/21 at 14:00; Stop 01/07/21 at 10:42; Status DC Furosemide (Lasix) 40 mg BID92 IVP Last administered on 01/07/21at 08:46; Start 01/06/21 at 14:00; Stop 01/07/21 at 10:42; Status DC Potassium Chloride (Klor-Con) 20 meq 1X ONCE PO Last administered on 01/06/21at 11:19; Start 01/06/21 at 11:30; Stop 01/06/21 at 11:31; Status DC Lactobacillus Rhamnosus (Culturelle) 1 cap BID PO Last administered on 01/13/21at 09:08; Start 01/06/21 at 21:00 Perflutren Protein Type A Microsphe (Optison) 0.66 mg STK-MED ONCE IV ; Start 01/06/21 at 08:00; Stop 01/07/21 at 09:00; Status DC Potassium Chloride (Klor-Con) 20 meq BID PO Last administered on 01/08/21at 08:16; Start 01/07/21 at 21:00; Stop 01/08/21 at 12:26; Status DC Furosemide (Lasix) 40 mg DAILY PO Last administered on 01/08/21at 08:16; Start 01/08/21 at 09:00; Stop 01/08/21 at 12:26; Status DC Potassium Chloride (Klor-Con) 20 meq 1X ONCE PO Last administered on 01/07/21at 11:07; Start 01/07/21 at 10:45; Stop 01/07/21 at 10:46; Status DC Bisacodyl (Dulcolax Supp) 10 mg PRN DAILY PRN UT CONSTIPATION Last administered on 01/08/21at 02:20; Start 01/08/21 at 02:15 Dobutamine HCl/ Dextrose 250 ml @ 17.43 mls/ hr CONT PRN IV SEE I/O RECORD Last administered on 01/08/21at 10:20; Start 01/08/21 at 10:00 Ceftriaxone Sodium (Rocephin) 1 gm Q24H IVP Last administered on 01/08/21at 11:06; Start 01/08/21 at 11:00; Stop 01/09/21 at 10:15; Status DC Heparin Sodium (Porcine) (Heparin Sodium) 5,000 unit Q12HR SQ Last administered on 01/09/21at 22:01; Start 01/08/21 at 13:00; Stop 01/10/21 at 05:35; Status DC Acetaminophen/ Hydrocodone Bitart (Lortab 5/325) 1 tab PRN Q4HRS PRN PO PAIN; Start 01/08/21 at 13:45; Status UNV Norepinephrine Bitartrate 8 mg/ Dextrose 258 ml @ 22.485 mls/ hr CONT PRN IV PER PROTOCOL Last administered on 01/09/21at 11:05; Start 01/08/21 at 19:00 Norepinephrine Bitartrate 8 mg/ Dextrose 258 ml @ 22.485 mls/ hr CONT PRN IV PER PROTOCOL; Start 01/08/21 at 19:00; Status UNV Fentanyl Citrate 30 ml @ 0 mls/hr CONT PRN IV SEE PROTOCOL Last administered on 01/11/21at 02:06; Start 01/08/21 at 19:00 Midazolam HCl 100 ml @ 1 mls/hr CONT PRN IV SEE PROTOCOL Last administered on 01/11/21at 03:51; Start 01/08/21 at 19:00 Propofol 100 ml @ 0.1 mls/hr CONT PRN IV PER PROTOCOL; Start 01/08/21 at 19:00 Chlorhexidine Gluconate (Peridex) 15 ml BID MM Last administered on 01/13/21at 09:00; Start 01/08/21 at 21:00 Glycerin/ Hypromellose/ Polyethylene (Artificial Tears) 1 drop PRN Q1HR PRN OU DRY EYE; Start 01/08/21 at 19:00 Dexmedetomidine HCl 400 mcg/ Sodium Chloride 100 ml @ 5.8 mls/hr CONT PRN IV PER PROTOCOL; Start 01/08/21 at 19:00 Sodium Chloride 500 ml @ 500 mls/hr 1X PRN PRN IV SEE COMMENTS; Start 01/08/21 at 19:00 Atropine Sulfate (ATROPINE 0.5mg SYRINGE) 0.5 mg PRN Q5MIN PRN IV SEE COMMENTS; Start 01/08/21 at 19:00 Ringer's Solution 1,000 ml @ 100 mls/hr Q10H IV Last administered on 01/08/21at 21:08; Start 01/08/21 at 20:15; Stop 01/10/21 at 08:42; Status DC Fentanyl Citrate (Fentanyl 2ml Vial) 100 mcg STK-MED ONCE .ROUTE ; Start 01/08/21 at 20:42; Stop 01/08/21 at 20:42; Status DC Piperacillin Sod/ Tazobactam Sod 2.25 gm/Sodium Chloride 50 ml @ 100 mls/hr Q6HRS IV Last administered on 01/11/21at 05:56; Start 01/09/21 at 12:00; Stop 01/11/21 at 12:38; Status DC Insulin Human Lispro (HumaLOG) 0-8 UNITS BG 400-49... Q6HRS SQ Last administered on 01/13/21at 05:37; Start 01/09/21 at 18:00 Heparin Sodium/ Dextrose 250 ml @ 10 mls/hr CONT PRN IV PER PROTOCOL Last administered on 01/13/21at 01:00; Start 01/10/21 at 05:30 Heparin Sodium (Porcine) (Heparin Sodium) 2,850 unit PRN Q6HRS PRN IV FOR UFH LEVEL LESS THAN 0.2 Last administered on 01/10/21at 13:08; Start 01/10/21 at 05:30 Info (Anti-Coagulation Monitoring By Pharmacy) 1 each PRN DAILY PRN MC PER PROTOCOL Last administered on 01/10/21at 10:00; Start 01/10/21 at 05:45 Furosemide (Lasix) 40 mg 1X ONCE IVP Last administered on 01/10/21at 09:15; Start 01/10/21 at 08:45; Stop 01/10/21 at 08:46; Status DC Aspirin (Aspirin Chewable) 81 mg DAILYWBKFT PO Last administered on 01/13/21at 09:08; Start 01/10/21 at 09:15 Linezolid (Zyvox) 600 mg BID PO Last administered on 11/8/21at 09:08; Start 01/10/21 at 16:00 Atropine Sulfate (ATROPINE 1mg SYRINGE) 1 mg STK-MED ONCE .ROUTE ; Start 01/05/21 at 16:07; Stop 01/10/21 at 16:08; Status DC Epinephrine HCl (EPINEPHrine SYRINGE) 2 mg STK-MED ONCE .ROUTE ; Start 01/05/21 at 16:07; Stop 01/10/21 at 16:08; Status DC Midazolam HCl (Versed) 5 mg STK-MED ONCE .ROUTE ; Start 01/05/21 at 16:07; Stop 01/10/21 at 16:08; Status DC Sodium Bicarbonate (Sodium Bicarb Adult 8.4% Syr) 100 meq STK-MED ONCE .ROUTE ; Start 01/05/21 at 16:07; Stop 01/10/21 at 16:08; Status DC Piperacillin Sod/ Tazobactam Sod 2.25 gm/Sodium Chloride 50 ml @ 100 mls/hr Q8HRS IV Last administered on 01/13/21at 05:43; Start 01/11/21 at 14:00 Potassium Bicarbonate (Potassium Effervescent Tablet) 40 meq 1X ONCE PO ; Start 01/11/21 at 09:00; Stop 01/11/21 at 13:05; Status DC Potassium Bicarbonate (Potassium Effervescent Tablet) 40 meq 1X ONCE PO Last administered on 01/11/21at 18:12; Start 01/11/21 at 18:00; Stop 01/11/21 at 18:01; Status DC Potassium Bicarbonate (Potassium Effervescent Tablet) 20 meq 1X ONCE PO Last administered on 01/12/21at 14:06; Start 01/12/21 at 13:00; Stop 01/12/21 at 13:01; Status DC Insulin Human Lispro (HumaLOG) 6 units Q6HRS SQ Last administered on 01/13/21at 05:38; Start 01/12/21 at 13:00 Active Scripts Active Cephalexin 500 Mg Tablet 1 Tab PO TID 7 Days Thera-M Tablet (Multivits,Ca,Minerals/Iron/Fa) 1 Each Tablet 1 Tab PO DAILY Vitamin C (Ascorbic Acid) 500 Mg Tablet 500 Mg PO DAILY Lantus (Insulin Glargine,Hum.rec.anlog) 100 Unit/1 Ml Vial 12 Unit SQ QHS Metolazone 2.5 Mg Tablet 2.5 Mg PO QMWF Klor-Con M20 (Potassium Chloride) 20 Meq Tab.er.prt 20 Meq PO BID Toprol XL (Metoprolol Succinate) 50 Mg Tab.er.24h 50 Mg PO DAILY Furosemide 40 Mg Tablet 40 Mg PO BID Amlodipine Besylate 5 Mg Tablet 5 Mg PO DAILY Atorvastatin Calcium 40 Mg Tablet 40 Mg PO QHS Admelog (Insulin Lispro) 100 Unit/1 Ml Vial 6 Units SQ TIDAC hold if blood sugar less than 90 before a meal Nyamyc (Nystatin) 15 Gm Powder 1 Renee TP BID Stool Soft-Stimulant Lax Tab (Sennosides/Docusate Sodium) 1 Each Tablet 2 Tab PO DAILY Feosol (Ferrous Sulfate) 325 Mg Tablet 325 Mg PO QODAY Synthroid (Levothyroxine Sodium) 150 Mcg Tablet 150 Mcg PO DAILY06 Allopurinol 100 Mg Tablet 100 Mg PO DAILY Paroxetine Hcl 20 Mg Tablet 20 Mg PO DAILY Reported Aspirin 81 Mg Tab.chew 81 Mg PO HS Tylenol (Acetaminophen) 325 Mg Tablet 650 Mg PO PRN Q4HRS Vitals/I & O Vital Sign - Last 24 Hours 01/12/21 01/12/21 01/12/21 01/12/21 11:00 11:56 11:57 12:00 Temp 98.6 98.6 Pulse 71 74 B/P (MAP) 102/57 105/58 Pulse Ox 94 94 94 O2 Delivery Ventilator Ventilator Ventilator Mechanical Ventilator 01/12/21 01/12/21 01/12/21 01/12/21 13:00 13:58 14:00 15:00 Pulse 72 76 73 B/P (MAP) 109/56 97/49 103/59 Pulse Ox 94 96 94 95 O2 Delivery Ventilator Ventilator Ventilator Ventilator 01/12/21 01/12/21 01/12/21 01/12/21 15:42 16:00 16:00 16:30 Temp 98.9 98.9 Pulse 72 B/P (MAP) 105/56 Pulse Ox 95 95 94 O2 Delivery Ventilator Mechanical Ventilator Ventilator Ventilator 01/12/21 01/12/21 01/12/21 01/12/21 17:00 18:00 19:00 19:00 Pulse 74 76 72 B/P (MAP) 102/56 106/60 108/56 Pulse Ox 94 94 94 94 O2 Delivery Ventilator Ventilator Ventilator Ventilator 01/12/21 01/12/21 01/12/21 01/12/21 19:30 20:00 21:00 21:00 Temp 98.0 98.0 Pulse 77 73 Resp 12 B/P (MAP) 111/60 113/58 Pulse Ox 95 94 94 O2 Delivery Mechanical Ventilator Ventilator Ventilator Ventilator 01/12/21 01/12/21 01/12/21 01/12/21 22:00 23:00 23:30 23:30 Pulse 73 74 Resp 12 12 B/P (MAP) 107/58 113/62 Pulse Ox 95 91 95 O2 Delivery Ventilator Ventilator Ventilator Mechanical Ventilator 01/13/21 01/13/21 01/13/21 01/13/21 00:01 01:00 01:05 02:00 Temp 98.4 98.4 Pulse 69 71 69 Resp 12 12 12 B/P (MAP) 97/50 94/48 104/61 Pulse Ox 94 96 95 94 O2 Delivery Ventilator Ventilator Ventilator Ventilator 01/13/21 01/13/21 01/13/21 01/13/21 03:00 03:00 04:00 04:00 Temp 98.3 98.3 Pulse 66 67 Resp 12 12 B/P (MAP) 102/53 97/52 Pulse Ox 95 95 94 O2 Delivery Ventilator Ventilator Mechanical Ventilator Ventilator 01/13/21 01/13/21 01/13/21 01/13/21 05:00 05:15 06:00 07:00 Pulse 68 66 64 Resp 12 12 12 B/P (MAP) 92/47 97/53 96/53 Pulse Ox 95 96 95 96 O2 Delivery Ventilator Ventilator Ventilator Ventilator 01/13/21 01/13/21 01/13/21 01/13/21 07:42 08:00 08:00 09:02 Temp 98.1 98.1 Pulse 67 Resp 12 B/P (MAP) 95/54 Pulse Ox 95 96 96 O2 Delivery Ventilator Mechanical Ventilator Ventilator Ventilator 01/13/21 09:09 Pulse 65 B/P (MAP) 100/55 Intake and Output 01/12/21 01/12/21 01/13/21 15:00 23:00 07:00 Intake Total 440 ml 867 ml 1142 ml Output Total 255 ml 200 ml 225 ml Balance 185 ml 667 ml 917 ml Justifications for Admission Other Justification TERE ALLISON MD Jan 13, 2021 10:38
[2021-01-13] MEDS ORDERED: POTASSIUM BICARB 20 MEQ EFFERVESCENT TABLET. PO ONE (11:00)
--- NOTE | 2021-01-13 11:54 | PDOC2 ---
NEUROLOGY CONSULT Date of Service DOS: DATE: 01/13/21 TIME: 11:52 Reason for Consult Reason for Consult: Postcode Referring Physician Referring Physician: Dr. Lara Source Source: Caregiver (Son, ), Chart review History of Present Illness History of Present Illness The patient is a 80-year-old right-handed female admitted on 01/05 with heart failure and chest pain. On 01/08 she had a CODE BLUE, no more than 15 minutes downtime. She has been intubated since. Sedation was lifted 2 days ago. There is no history of stroke, seizure, or head injury. She does have renal failure. I saw her in May for metabolic encephalopathy. She had a strange spell of elective mutism which resolved. Echocardiogram done a week ago shows ejection fraction of 25%. She does have diabetic neuropathy Past Medical History Cardiovascular: CAD, CHF, HTN, Hyperlipidemia, Other (Peripheral vascular disease, deep vein thrombosis) Pulmonary: Bronchitis, Pneumonia, Other (Sleep apnea) CENTRAL NERVOUS SYSTEM: Periperal neuropathy Heme/Onc: Anemia NOS, Cancer (Uterine) Psych: Anxiety Musculoskeletal: Osteoarthritis ENT: Other (Diabetic retinopathy) Renal/: Chronic renal failure, UTI, Urinary Incontinence Endocrine: Diabetes, Hypothyroidism Past Surgical History Past Surgical History: Appendectomy, Cataract Removal, Tonsillectomy, Hysterectomy, Other (Left [id number] amputation, right carpal tunnel) Family History Family History: CAD Social History Social History , lives with , no alcohol or tobacco Current Medications Current Medications Current Medications Furosemide (Lasix) 80 mg 1X ONCE IVP Last administered on 01/05/21at 09:21; Start 01/05/21 at 09:00; Stop 01/05/21 at 09:01; Status DC Nitroglycerin (Nitrostat) 0.4 mg PRN Q5MIN PRN SL CHEST PAIN Last administered on 01/08/21at 03:16; Start 01/05/21 at 09:30 Ceftriaxone Sodium (Rocephin) 1 gm 1X ONCE IVP Last administered on 01/05/21at 12:41; Start 01/05/21 at 12:00; Stop 01/05/21 at 12:09; Status DC Aspirin (Raulito Aspirin) 325 mg DAILY PO Last administered on 01/09/21at 08:12; Start 01/05/21 at 12:00; Stop 01/10/21 at 11:41; Status DC Insulin Human Lispro (HumaLOG) 4 units TIDAC SQ Last administered on 01/08/21at 08:25; Start 01/05/21 at 16:30; Stop 01/09/21 at 13:18; Status DC Insulin Glargine (Lantus Syringe) 12 unit QHS SQ Last administered on 01/08/21at 21:14; Start 01/05/21 at 21:00; Stop 01/09/21 at 13:18; Status DC Insulin Human Lispro (HumaLOG) 0-8 UNITS TIDWMEALS SQ Last administered on 01/05/21at 23:41; Start 01/05/21 at 17:00; Stop 01/09/21 at 13:18; Status DC Ondansetron HCl (Zofran Odt) 4 mg PRN Q6HRS PRN PO NAUSEA/VOMITING Last administered on 01/06/21at 23:20; Start 01/05/21 at 11:45 Ondansetron HCl (Zofran Odt) 4 mg TIDAC PO Last administered on 01/08/21at 08:16; Start 01/05/21 at 12:00; Stop 01/11/21 at 18:30; Status DC Levothyroxine Sodium (Synthroid) 150 mcg DAILY06 PO Last administered on 01/13/21at 05:37; Start 01/06/21 at 06:00 Furosemide (Lasix) 40 mg BID92 PO Last administered on 01/06/21at 08:38; Start 01/05/21 at 14:00; Stop 01/06/21 at 10:42; Status DC Metolazone (Zaroxolyn) 2.5 mg MoWeFr@0900 PO Last administered on 01/08/21at 08:17; Start 01/06/21 at 09:00; Stop 01/08/21 at 12:26; Status DC Potassium Chloride (Klor-Con) 20 meq BID PO Last administered on 01/06/21at 08:38; Start 01/05/21 at 21:00; Stop 01/06/21 at 10:42; Status DC Metoprolol Succinate (Toprol Xl) 50 mg DAILY PO Last administered on 01/13/21at 09:09; Start 01/06/21 at 09:00 Amlodipine Besylate (Norvasc) 5 mg DAILY PO Last administered on 01/08/21at 08:18; Start 01/06/21 at 09:00; Stop 01/09/21 at 13:18; Status DC Senna/Docusate Sodium (Senna Plus) 2 tab QHS PO Last administered on 01/12/21at 20:36; Start 01/05/21 at 21:00 Allopurinol (Zyloprim) 100 mg DAILY PO Last administered on 01/13/21at 09:08; Start 01/06/21 at 09:00 Atorvastatin Calcium (Lipitor) 40 mg QHS PO Last administered on 01/12/21at 20:36; Start 01/05/21 at 21:00 Paroxetine HCl (Paxil) 20 mg DAILY PO Last administered on 01/11/21at 12:49; Start 01/06/21 at 09:00; Stop 01/11/21 at 13:03; Status DC Piperacillin Sod/ Tazobactam Sod 3.375 gm/Sodium Chloride 50 ml @ 100 mls/hr Q6HRS IV Last administered on 01/06/21at 06:08; Start 01/05/21 at 12:00; Stop 01/06/21 at 10:42; Status DC Heparin Sodium (Porcine) (Heparin Sodium) 5,000 unit Q12HR SQ ; Start 01/05/21 at 21:00; Stop 01/05/21 at 18:35; Status DC Famotidine (Pepcid) 20 mg QHS PO Last administered on 01/12/21at 20:36; Start 01/05/21 at 21:00 Acetaminophen (Tylenol) 650 mg PRN Q6HRS PRN PO MILD PAIN / TEMP > 100.3'F Last administered on 01/10/21at 03:59; Start 01/05/21 at 12:15 Heparin Sodium/ Dextrose 250 ml @ 13.32 mls/ hr CONT PRN IV PER PROTOCOL Last administered on 01/06/21at 17:00; Start 01/05/21 at 19:00; Stop 01/07/21 at 14:35; Status DC Heparin Sodium (Porcine) (Heparin Sodium) 2,800 unit PRN Q6HRS PRN IV FOR UFH LEVEL LESS THAN 0.2 Last administered on 01/06/21at 21:30; Start 01/05/21 at 19:00; Stop 01/07/21 at 14:35; Status DC Perflutren Protein Type A Microsphe (Optison) 0.66 mg STK-MED ONCE IV ; Start 01/06/21 at 07:20; Stop 01/06/21 at 07:20; Status DC Perflutren Protein Type A Microsphe (Optison) 0.66 mg 1X ONCE IV ; Start 01/06/21 at 08:15; Stop 01/06/21 at 08:16; Status DC Piperacillin Sod/ Tazobactam Sod 2.25 gm/Sodium Chloride 50 ml @ 100 mls/hr Q6HRS IV Last administered on 01/08/21at 05:17; Start 01/06/21 at 12:00; Stop 01/08/21 at 10:40; Status DC Potassium Chloride (Klor-Con) 20 meq TID PO Last administered on 01/07/21at 08:44; Start 01/06/21 at 14:00; Stop 01/07/21 at 10:42; Status DC Furosemide (Lasix) 40 mg BID92 IVP Last administered on 01/07/21at 08:46; Start 01/06/21 at 14:00; Stop 01/07/21 at 10:42; Status DC Potassium Chloride (Klor-Con) 20 meq 1X ONCE PO Last administered on 01/06/21at 11:19; Start 01/06/21 at 11:30; Stop 01/06/21 at 11:31; Status DC Lactobacillus Rhamnosus (Culturelle) 1 cap BID PO Last administered on 1at 09:08; Start 01/06/21 at 21:00 Perflutren Protein Type A Microsphe (Optison) 0.66 mg STK-MED ONCE IV ; Start 01/06/21 at 08:00; Stop 01/07/21 at 09:00; Status DC Potassium Chloride (Klor-Con) 20 meq BID PO Last administered on 01/08/21at 08:16; Start 01/07/21 at 21:00; Stop 01/08/21 at 12:26; Status DC Furosemide (Lasix) 40 mg DAILY PO Last administered on 01/08/21at 08:16; Start 01/08/21 at 09:00; Stop 01/08/21 at 12:26; Status DC Potassium Chloride (Klor-Con) 20 meq 1X ONCE PO Last administered on 01/07/21at 11:07; Start 01/07/21 at 10:45; Stop 01/07/21 at 10:46; Status DC Bisacodyl (Dulcolax Supp) 10 mg PRN DAILY PRN CO CONSTIPATION Last administered on 01/08/21at 02:20; Start 01/08/21 at 02:15 Dobutamine HCl/ Dextrose 250 ml @ 17.43 mls/ hr CONT PRN IV SEE I/O RECORD Last administered on 01/08/21at 10:20; Start 01/08/21 at 10:00 Ceftriaxone Sodium (Rocephin) 1 gm Q24H IVP Last administered on 01/08/21at 11:06; Start 01/08/21 at 11:00; Stop 01/09/21 at 10:15; Status DC Heparin Sodium (Porcine) (Heparin Sodium) 5,000 unit Q12HR SQ Last administered on 01/09/21at 22:01; Start 01/08/21 at 13:00; Stop 01/10/21 at 05:35; Status DC Acetaminophen/ Hydrocodone Bitart (Lortab 5/325) 1 tab PRN Q4HRS PRN PO PAIN; Start 01/08/21 at 13:45; Status UNV Norepinephrine Bitartrate 8 mg/ Dextrose 258 ml @ 22.485 mls/ hr CONT PRN IV PER PROTOCOL Last administered on 01/09/21at 11:05; Start 01/08/21 at 19:00 Norepinephrine Bitartrate 8 mg/ Dextrose 258 ml @ 22.485 mls/ hr CONT PRN IV PER PROTOCOL; Start 01/08/21 at 19:00; Status UNV Fentanyl Citrate 30 ml @ 0 mls/hr CONT PRN IV SEE PROTOCOL Last administered on 01/11/21at 02:06; Start 01/08/21 at 19:00 Midazolam HCl 100 ml @ 1 mls/hr CONT PRN IV SEE PROTOCOL Last administered on 01/11/21at 03:51; Start 01/08/21 at 19:00 Propofol 100 ml @ 0.1 mls/hr CONT PRN IV PER PROTOCOL; Start 01/08/21 at 19:00 Chlorhexidine Gluconate (Peridex) 15 ml BID MM Last administered on 01/13/21at 09:00; Start 01/08/21 at 21:00 Glycerin/ Hypromellose/ Polyethylene (Artificial Tears) 1 drop PRN Q1HR PRN OU DRY EYE; Start 01/08/21 at 19:00 Dexmedetomidine HCl 400 mcg/ Sodium Chloride 100 ml @ 5.8 mls/hr CONT PRN IV PER PROTOCOL; Start 01/08/21 at 19:00 Sodium Chloride 500 ml @ 500 mls/hr 1X PRN PRN IV SEE COMMENTS; Start 01/08/21 at 19:00 Atropine Sulfate (ATROPINE 0.5mg SYRINGE) 0.5 mg PRN Q5MIN PRN IV SEE COMMENTS; Start 01/08/21 at 19:00 Ringer's Solution 1,000 ml @ 100 mls/hr Q10H IV Last administered on 01/08/21at 21:08; Start 01/08/21 at 20:15; Stop 01/10/21 at 08:42; Status DC Fentanyl Citrate (Fentanyl 2ml Vial) 100 mcg STK-MED ONCE .ROUTE ; Start 01/08/21 at 20:42; Stop 01/08/21 at 20:42; Status DC Piperacillin Sod/ Tazobactam Sod 2.25 gm/Sodium Chloride 50 ml @ 100 mls/hr Q6HRS IV Last administered on 01/11/21at 05:56; Start 01/09/21 at 12:00; Stop 01/11/21 at 12:38; Status DC Insulin Human Lispro (HumaLOG) 0-8 UNITS BG 400-49... Q6HRS SQ Last administered on 01/13/21at 05:37; Start 01/09/21 at 18:00 Heparin Sodium/ Dextrose 250 ml @ 10 mls/hr CONT PRN IV PER PROTOCOL Last administered on 01/13/21at 01:00; Start 01/10/21 at 05:30 Heparin Sodium (Porcine) (Heparin Sodium) 2,850 unit PRN Q6HRS PRN IV FOR UFH LEVEL LESS THAN 0.2 Last administered on 01/10/21at 13:08; Start 01/10/21 at 05:30 Info (Anti-Coagulation Monitoring By Pharmacy) 1 each PRN DAILY PRN MC PER PROTOCOL Last administered on 01/10/21at 10:00; Start 01/10/21 at 05:45 Furosemide (Lasix) 40 mg 1X ONCE IVP Last administered on 01/10/21at 09:15; Start 01/10/21 at 08:45; Stop 01/10/21 at 08:46; Status DC Aspirin (Aspirin Chewable) 81 mg DAILYWBKFT PO Last administered on 01/13/21at 09:08; Start 01/10/21 at 09:15 Linezolid (Zyvox) 600 mg BID PO Last administered on 01/13/21at 09:08; Start 01/10/21 at 16:00 Atropine Sulfate (ATROPINE 1mg SYRINGE) 1 mg STK-MED ONCE .ROUTE ; Start 01/05/21 at 16:07; Stop 01/10/21 at 16:08; Status DC Epinephrine HCl (EPINEPHrine SYRINGE) 2 mg STK-MED ONCE .ROUTE ; Start 01/05/21 at 16:07; Stop 01/10/21 at 16:08; Status DC Midazolam HCl (Versed) 5 mg STK-MED ONCE .ROUTE ; Start 01/05/21 at 16:07; Stop 01/10/21 at 16:08; Status DC Sodium Bicarbonate (Sodium Bicarb Adult 8.4% Syr) 100 meq STK-MED ONCE .ROUTE ; Start 01/05/21 at 16:07; Stop 01/10/21 at 16:08; Status DC Piperacillin Sod/ Tazobactam Sod 2.25 gm/Sodium Chloride 50 ml @ 100 mls/hr Q8HRS IV Last administered on 01/13/21at 05:43; Start 01/11/21 at 14:00 Potassium Bicarbonate (Potassium Effervescent Tablet) 40 meq 1X ONCE PO ; Start 01/11/21 at 09:00; Stop 01/11/21 at 13:05; Status DC Potassium Bicarbonate (Potassium Effervescent Tablet) 40 meq 1X ONCE PO Last administered on 01/11/21at 18:12; Start 01/11/21 at 18:00; Stop 01/11/21 at 18:01; Status DC Potassium Bicarbonate (Potassium Effervescent Tablet) 20 meq 1X ONCE PO Last administered on 01/12/21at 14:06; Start 01/12/21 at 13:00; Stop 01/12/21 at 13:01; Status DC Insulin Human Lispro (HumaLOG) 6 units Q6HRS SQ Last administered on 01/13/21at 05:38; Start 01/12/21 at 13:00; Stop 01/13/21 at 10:42; Status DC Insulin Human Lispro (HumaLOG) 10 units Q6HRS SQ ; Start 01/13/21 at 12:00 Potassium Bicarbonate (Potassium Effervescent Tablet) 20 meq 1X ONCE PO ; Start 01/13/21 at 11:00; Stop 01/13/21 at 11:01; Status DC Active Scripts Active Cephalexin 500 Mg Tablet 1 Tab PO TID 7 Days Thera-M Tablet (Multivits,Ca,Minerals/Iron/Fa) 1 Each Tablet 1 Tab PO DAILY Vitamin C (Ascorbic Acid) 500 Mg Tablet 500 Mg PO DAILY Lantus (Insulin Glargine,Hum.rec.anlog) 100 Unit/1 Ml Vial 12 Unit SQ QHS Metolazone 2.5 Mg Tablet 2.5 Mg PO QMWF Klor-Con M20 (Potassium Chloride) 20 Meq Tab.er.prt 20 Meq PO BID Toprol XL (Metoprolol Succinate) 50 Mg Tab.er.24h 50 Mg PO DAILY Furosemide 40 Mg Tablet 40 Mg PO BID Amlodipine Besylate 5 Mg Tablet 5 Mg PO DAILY Atorvastatin Calcium 40 Mg Tablet 40 Mg PO QHS Admelog (Insulin Lispro) 100 Unit/1 Ml Vial 6 Units SQ TIDAC hold if blood sugar less than 90 before a meal Nyamyc (Nystatin) 15 Gm Powder 1 Renee TP BID Stool Soft-Stimulant Lax Tab (Sennosides/Docusate Sodium) 1 Each Tablet 2 Tab PO DAILY Feosol (Ferrous Sulfate) 325 Mg Tablet 325 Mg PO QODAY Synthroid (Levothyroxine Sodium) 150 Mcg Tablet 150 Mcg PO DAILY06 Allopurinol 100 Mg Tablet 100 Mg PO DAILY Paroxetine Hcl 20 Mg Tablet 20 Mg PO DAILY Reported Aspirin 81 Mg Tab.chew 81 Mg PO HS Tylenol (Acetaminophen) 325 Mg Tablet 650 Mg PO PRN Q4HRS Allergies Allergies: Coded Allergies: lisinopril (Verified Allergy, Severe, THROAT, TONGUE SWELLING, 01/05/21) adhesive (Verified Allergy, Intermediate, TAPE-RED SKIN, 01/05/21) sertraline HCl (Verified Allergy, Intermediate, 01/05/21) I S O L A T I O N *CONTACT* (Verified Allergy, Unknown, 01/05/21) ESBL morphine (Verified Adverse Reaction, Intermediate, Nausea, 01/05/21) ROS Review of System She was having dyspnea and chest pain prior to admission. Negative for fever, chills, weight loss, indigestion, hematochezia, melena, and dysuria. Full 14- point review of systems is negative. Physical Exam Physical Examination General: Well-developed, well-nourished, white female, in no acute distress HEENT: Normocephalic andatraumatic. Temporal arteriespulsatile and nontender. Neck: Supple without bruit, no meningismus Musculoskeletal: Stability:see neurologic. Gait exam:see neurologic. Tone:see neurologic.Strength:see neurologic. Neurological: Mental Status: Intubated, no sedation, takes a few respiratory breaths after about 10 seconds when I disconnect the ventilator. No response to voice or pain. Cranial Nerves:Pupils equal and reactive to light. There is no facial asymmetry. Vestibulo-ocular reflex is intact. All other cranial related problems are negative except as mentioned before.Reflexes:0-1+ and symmetric with flexor plantar response on right, has left [id number] amputation. Motor:No response to pain. Coordination and gait:Not cooperative. Sensory:Not cooperative. Vitals VITALS Vital Signs Date Time Temp Pulse Resp B/P (MAP) Pulse Ox O2 Delivery O2 Flow Rate FiO2 01/13/21 11:37 96 Ventilator 01/13/21 09:09 65 100/55 01/13/21 08:00 98.1 12 98.1 Labs Labs Laboratory Tests Test 01/11/21 12:10 01/11/21 12:37 01/11/21 18:18 01/11/21 19:35 Heparin Anti-Xa Act, Unfractionated 0.29 IU/mL (0.30-0.70) 0.40 IU/mL (0.30-0.70) Glucose (Fingerstick) 199 mg/dL (70-99) 240 mg/dL (70-99) Test 01/11/21 23:37 01/12/21 01:20 01/12/21 05:44 01/12/21 06:25 Glucose (Fingerstick) 273 mg/dL (70-99) 298 mg/dL (70-99) Heparin Anti-Xa Act, Unfractionated 0.51 IU/mL (0.30-0.70) 0.44 IU/mL (0.30-0.70) White Blood Count 8.9 x10^3/uL (4.0-11.0) Red Blood Count 3.91 x10^6/uL (3.50-5.40) Hemoglobin 10.4 g/dL (12.0-15.5) Hematocrit 32.7 % (36.0-47.0) Mean Corpuscular Volume 84 fL (79-100) Mean Corpuscular Hemoglobin 27 pg (25-35) Mean Corpuscular Hemoglobin Concent 32 g/dL (31-37) Red Cell Distribution Width 14.5 % (11.5-14.5) Platelet Count 167 x10^3/uL (140-400) Neutrophils (%) (Auto) 81 % (31-73) Lymphocytes (%) (Auto) 9 % (24-48) Monocytes (%) (Auto) 9 % (0-9) Eosinophils (%) (Auto) 1 % (0-3) Basophils (%) (Auto) 0 % (0-3) Neutrophils # (Auto) 7.2 x10^3/uL (1.8-7.7) Lymphocytes # (Auto) 0.8 x10^3/uL (1.0-4.8) Monocytes # (Auto) 0.8 x10^3/uL (0.0-1.1) Eosinophils # (Auto) 0.1 x10^3/uL (0.0-0.7) Basophils # (Auto) 0.0 x10^3/uL (0.0-0.2) Sodium Level 141 mmol/L (136-145) Potassium Level 3.3 mmol/L (3.5-5.1) Chloride Level 102 mmol/L (98-107) Carbon Dioxide Level 30 mmol/L (21-32) Anion Gap 9 (6-14) Blood Urea Nitrogen 97 mg/dL (7-20) Creatinine 3.7 mg/dL (0.6-1.0) Estimated GFR (Cockcroft-Gault) 11.8 Glucose Level 303 mg/dL (70-99) Calcium Level 8.1 mg/dL (8.5-10.1) Magnesium Level 2.6 mg/dL (1.8-2.4) Test 01/12/21 08:45 01/12/21 11:49 01/12/21 18:41 01/12/21 23:32 O2 Saturation 93 % (92-99) Arterial Blood pH 7.42 (7.35-7.45) Arterial Blood pCO2 at Patient Temp 47 mmHg (35-46) Arterial Blood pO2 at Patient Temp 70 mmHg (65-108) Arterial Blood HCO3 30 mmol/L (21-28) Arterial Blood Base Excess 5 mmol/L (-3-3) FiO2 40 Glucose (Fingerstick) 296 mg/dL (70-99) 308 mg/dL (70-99) 228 mg/dL (70-99) Test 01/13/21 04:20 01/13/21 07:40 White Blood Count 11.3 x10^3/uL (4.0-11.0) Red Blood Count 3.89 x10^6/uL (3.50-5.40) Hemoglobin 10.5 g/dL (12.0-15.5) Hematocrit 32.7 % (36.0-47.0) Mean Corpuscular Volume 84 fL (79-100) Mean Corpuscular Hemoglobin 27 pg (25-35) Mean Corpuscular Hemoglobin Concent 32 g/dL (31-37) Red Cell Distribution Width 14.5 % (11.5-14.5) Platelet Count 185 x10^3/uL (140-400) Neutrophils (%) (Auto) 81 % (31-73) Lymphocytes (%) (Auto) 9 % (24-48) Monocytes (%) (Auto) 9 % (0-9) Eosinophils (%) (Auto) 1 % (0-3) Basophils (%) (Auto) 0 % (0-3) Neutrophils # (Auto) 9.1 x10^3/uL (1.8-7.7) Lymphocytes # (Auto) 1.0 x10^3/uL (1.0-4.8) Monocytes # (Auto) 1.0 x10^3/uL (0.0-1.1) Eosinophils # (Auto) 0.1 x10^3/uL (0.0-0.7) Basophils # (Auto) 0.0 x10^3/uL (0.0-0.2) Heparin Anti-Xa Act, Unfractionated 0.56 IU/mL (0.30-0.70) Sodium Level 143 mmol/L (136-145) Potassium Level 3.3 mmol/L (3.5-5.1) Chloride Level 104 mmol/L (98-107) Carbon Dioxide Level 31 mmol/L (21-32) Anion Gap 8 (6-14) Blood Urea Nitrogen 104 mg/dL (7-20) Creatinine 3.9 mg/dL (0.6-1.0) Estimated GFR (Cockcroft-Gault) 11.1 Glucose Level 213 mg/dL (70-99) Calcium Level 8.3 mg/dL (8.5-10.1) Magnesium Level 2.7 mg/dL (1.8-2.4) O2 Saturation 95 % (92-99) Arterial Blood pH 7.42 (7.35-7.45) Arterial Blood pCO2 at Patient Temp 50 mmHg (35-46) Arterial Blood pO2 at Patient Temp 77 mmHg (65-108) Arterial Blood HCO3 31 mmol/L (21-28) Arterial Blood Base Excess 6 mmol/L (-3-3) FiO2 40 Laboratory Tests Test 01/12/21 18:41 01/12/21 23:32 01/13/21 04:20 01/13/21 07:40 Glucose (Fingerstick) 308 mg/dL (70-99) 228 mg/dL (70-99) White Blood Count 11.3 x10^3/uL (4.0-11.0) Red Blood Count 3.89 x10^6/uL (3.50-5.40) Hemoglobin 10.5 g/dL (12.0-15.5) Hematocrit 32.7 % (36.0-47.0) Mean Corpuscular Volume 84 fL (79-100) Mean Corpuscular Hemoglobin 27 pg (25-35) Mean Corpuscular Hemoglobin Concent 32 g/dL (31-37) Red Cell Distribution Width 14.5 % (11.5-14.5) Platelet Count 185 x10^3/uL (140-400) Neutrophils (%) (Auto) 81 % (31-73) Lymphocytes (%) (Auto) 9 % (24-48) Monocytes (%) (Auto) 9 % (0-9) Eosinophils (%) (Auto) 1 % (0-3) Basophils (%) (Auto) 0 % (0-3) Neutrophils # (Auto) 9.1 x10^3/uL (1.8-7.7) Lymphocytes # (Auto) 1.0 x10^3/uL (1.0-4.8) Monocytes # (Auto) 1.0 x10^3/uL (0.0-1.1) Eosinophils # (Auto) 0.1 x10^3/uL (0.0-0.7) Basophils # (Auto) 0.0 x10^3/uL (0.0-0.2) Heparin Anti-Xa Act, Unfractionated 0.56 IU/mL (0.30-0.70) Sodium Level 143 mmol/L (136-145) Potassium Level 3.3 mmol/L (3.5-5.1) Chloride Level 104 mmol/L (98-107) Carbon Dioxide Level 31 mmol/L (21-32) Anion Gap 8 (6-14) Blood Urea Nitrogen 104 mg/dL (7-20) Creatinine 3.9 mg/dL (0.6-1.0) Estimated GFR (Cockcroft-Gault) 11.1 Glucose Level 213 mg/dL (70-99) Calcium Level 8.3 mg/dL (8.5-10.1) Magnesium Level 2.7 mg/dL (1.8-2.4) O2 Saturation 95 % (92-99) Arterial Blood pH 7.42 (7.35-7.45) Arterial Blood pCO2 at Patient Temp 50 mmHg (35-46) Arterial Blood pO2 at Patient Temp 77 mmHg (65-108) Arterial Blood HCO3 31 mmol/L (21-28) Arterial Blood Base Excess 6 mmol/L (-3-3) FiO2 40 Assessment/Plan Assessment/Plan Impression: Anoxic encephalopathy, 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 She has been off sedation just 2 days and sedation may take a while to clear because of her renal insufficiency (and I suspect she also may have some liver insufficiency). Patient is already DO NOT RESUSCITATE, family will decide on goals of care. For now, they do not want to proceed with dialysis or a cardiac catheterization. Await head CT Thank you for let me help with the patient's care. PAUL SWANSON MD Jan 13, 2021 11:54
--- NOTE | 2021-01-13 14:18 | NUR ---
SS following up with discharge planning. SS reviewed pt chart and discussed with pt RN. Pt is currently on the vent at 40%. COVID19 negative. Pt on IV Zosyn and PO Zyvox. No sedation. Pt unresponsive. Head CT today. No dialysis. DNR. Physicians discussed prognosis with family. Family considering comfort care. SS will continue to follow for discharge planning.
--- NOTE | 2021-01-13 14:30 | RAD ---
EXAMINATION: CT HEAD/BRAIN WO CLINICAL HISTORY: Altered mental status TECHNIQUE: Serial axial images without IV contrast were obtained from the vertex to the foramen magnu m. CT Dose Reduction Employed: One or more of the following individualized dose reduction techniques festus e utilized for this examination: 1. Automated exposure control 2. Adjustment of the mA and/or kV ac cording to patient size 3. Use of iterative reconstruction technique. COMPARISON: 06/09/2020 FINDINGS: Acute Change: No evidence of an acute infarct or other acute parenchymal process. Hemorrhage: No evidence of acute intracranial hemorrhage. Mass Lesion/Mass Effect: No evidence of intracranial mass or extraaxial fluid collection. No signific ant mass effect. Chronic Change: Extensive confluent foci of hypoattenuation in the supratentorial white matter, nonsp ecific but likely represents marked microvascular ischemia with superimposed old infarct(s) not exclu ded. Atherosclerotic calcification of the anterior and posterior circulation. Parenchyma: Moderate generalized volume loss. Ventricles: Ventricular enlargement concordant with degree of parenchymal volume loss. Paranasal Sinuses and Skull Base: Visualized paranasal sinuses clear. Visualized skull base and soft tissues unremarkable. IMPRESSION: No evidence of acute intracranial abnormality or significant interval change. Electronically signed by: Manohar Werner DO (01/13/2021 2:27 PM) [facility]
[2021-01-13] MEDS: SENNOSIDES/DOCUSATE 8.6/50MG TABLET. PO SCH (20:35)
[2021-01-13] MEDS: ATORVASTATIN CALCIUM 40 MG TABLET. PO SCH (20:35)
[2021-01-13] MEDS: FAMOTIDINE 20 MG TABLET. PO SCH (20:35)
[2021-01-14] VITALS (23 sets, daily range): BP systolic 107–132; BP diastolic 50–68
[2021-01-14 03:30] LABS: BASO % 0 % (0-3); EOS # 0.1 x10^3/uL (0.0-0.7); EOS % 1 % (0-3); HEMATOCRIT 33.6 % (36.0-47.0); HEMOGLOBIN 10.7 g/dL (12.0-15.5); LYMPH # 1.2 x10^3/uL (1.0-4.8); LYMPH % 10 % (24-48); MEAN CORPUSCULAR HEMOGLOBIN 26 pg (25-35); MEAN CORPUSCULAR HGB CONC 32 g/dL (31-37); MEAN CORPUSCULAR VOLUME 83 fL (79-100); MONO % 9 % (0-9); NEUT # 9.1 x10^3/uL (1.8-7.7); NEUT % 79 % (31-73); PLATELET COUNT 178 x10^3/uL (140-400); RED BLOOD COUNT 4.05 x10^6/uL (3.50-5.40); RED CELL DISTRIBUTION WIDTH 14.8 % (11.5-14.5); WHITE BLOOD COUNT 11.5 x10^3/uL (4.0-11.0)
[2021-01-14 03:43] LABS: CALCIUM 8.2 mg/dL (8.5-10.1); CREATININE 4.3 mg/dL (0.6-1.0); GFR 9.9; POTASSIUM 3.4 mmol/L (3.5-5.1)
[2021-01-14] MEDS: INSULIN LISPRO 300 UNITS/3 ML VIAL. SQ SCH ×6 (06:00→18:55)
[2021-01-14] MEDS: PIPERACILLIN/TAZOBACTAM 2.25 GM in IV NORMAL SALINE 50ML 50 ML IV SCH ×3 (06:17→21:38)
[2021-01-14] MEDS: LEVOTHYROXINE 150 MCG TABLET PO SCH (06:18)
--- NOTE | 2021-01-14 08:01 | PDOC ---
Infectious Disease Note Subjective: Subjective Patient remains on vent Patient unresponsive off sedation afebrile last 48hrs no pressor requirements Discussed with nursing staff Vital Signs: Vital Signs Vital Signs Date Time Temp Pulse Resp B/P (MAP) Pulse Ox O2 Delivery O2 Flow Rate FiO2 01/14/21 07:19 98.9 74 12 113/61 96 Ventilator 98.9 Physical Exam: PHYSICAL EXAM GENERAL: Intubated\sedated HEENT: Normocephalic, atraumatic. ETT present LUNGS: Decreased breath sounds at the bases, some crackles. CARDIOVASCULAR: S1, S2. No murmurs. ABDOMEN: Soft, nontender, nondistended, obese. Bowel sounds present. 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 Stump looks healthy, just dry skin. Right lower extremity, trace edema, mild erythema which is at baseline, no warmth, no weeping lesions, much improved than last admission., Dry anterior acevedo wound not infected DERMATOLOGIC: Warm, dry. No generalized rash except for above. NEUROLOGIC: Intubated GENITOURINARY: Cifuentes in place, Medications: Inpatient Meds: Medications reviewed. Labs: Lab Laboratory Tests Test 01/13/21 11:30 01/13/21 11:51 01/13/21 18:08 01/13/21 19:40 Heparin Anti-Xa Act, Unfractionated 0.58 IU/mL (0.30-0.70) 0.36 IU/mL (0.30-0.70) Glucose (Fingerstick) 285 mg/dL (70-99) 257 mg/dL (70-99) Test 01/13/21 23:56 01/14/21 03:05 01/14/21 06:19 Glucose (Fingerstick) 276 mg/dL (70-99) 246 mg/dL (70-99) White Blood Count 11.5 x10^3/uL (4.0-11.0) Red Blood Count 4.05 x10^6/uL (3.50-5.40) Hemoglobin 10.7 g/dL (12.0-15.5) Hematocrit 33.6 % (36.0-47.0) Mean Corpuscular Volume 83 fL (79-100) Mean Corpuscular Hemoglobin 26 pg (25-35) Mean Corpuscular Hemoglobin Concent 32 g/dL (31-37) Red Cell Distribution Width 14.8 % (11.5-14.5) Platelet Count 178 x10^3/uL (140-400) Neutrophils (%) (Auto) 79 % (31-73) Lymphocytes (%) (Auto) 10 % (24-48) Monocytes (%) (Auto) 9 % (0-9) Eosinophils (%) (Auto) 1 % (0-3) Basophils (%) (Auto) 0 % (0-3) Neutrophils # (Auto) 9.1 x10^3/uL (1.8-7.7) Lymphocytes # (Auto) 1.2 x10^3/uL (1.0-4.8) Monocytes # (Auto) 1.0 x10^3/uL (0.0-1.1) Eosinophils # (Auto) 0.1 x10^3/uL (0.0-0.7) Basophils # (Auto) 0.0 x10^3/uL (0.0-0.2) Heparin Anti-Xa Act, Unfractionated 0.46 IU/mL (0.30-0.70) Sodium Level 143 mmol/L (136-145) Potassium Level 3.4 mmol/L (3.5-5.1) Chloride Level 102 mmol/L (98-107) Carbon Dioxide Level 32 mmol/L (21-32) Anion Gap 9 (6-14) Blood Urea Nitrogen 111 mg/dL (7-20) Creatinine 4.3 mg/dL (0.6-1.0) Estimated GFR (Cockcroft-Gault) 9.9 Glucose Level 234 mg/dL (70-99) Calcium Level 8.2 mg/dL (8.5-10.1) Micro RUN DATE: 01/08/21 [facility] *LIVE* PAGE 1 RUN TIME: 827 Specimen Inquiry PATIENT: DIMAS REDMOND ACCT: [id number] LOC: [address] [place] [address] U: [id number] AGE/SX: 80/F ROOM: [facility] RE01/05/[address]: TERE ALLISON MD : 1940 BED: 1 DIS: STATUS: ADM IN TLOC: SPEC #: [id number] ONEL: 01/05/21 STATUS: COMP REQ #: [id number] RECD: 01/05/[address]: ARY MURILLO DO SOURCE: VOID ENTR: 01/05/[address]: TERE ALLISON MD SPDESC: JOAQUIM LI MD ORDERED: URINE CULTURE Procedure Result URINE CULTURE Final Final >100,000 CFU/ML [ESCHERICHIA COLI] Testing Performed by: [address] [address] For Inquires, the Physician may contact the Microbiology department at [phone] ESCHERICHIA COLI ANTIMICROBIAL SUSCEPTIBILITY Final Comment NEG BIRGIT 56 ESCHERICHIA COLI ANTIBIOTIC RESULT INTERPRETATION AMPICILLIN/SULBACTAM 8/4 S AMIKACIN <=16 S AMPICILLIN >16 R AMOXICILLIN/K CLAVULANATE >16/8 R AZTREONAM <=4 S CEFTRIAXONE <=1 S CEFTAZIDIME <=1 S CEFOTAXIME <=2 S CEFOXITIN <=8 S CEFAZOLIN 8 S CIPROFLOXACIN <=0.25 S CEFEPIME <=2 S CEFUROXIME 8 S CEFTAZIDIME/AVIBACTAM <=4 S ERTAPENEM <=0.5 S NITROFURANTOIN <=32 S GENTAMICIN <=2 S LEVOFLOXACIN <=0.5 S MEROPENEM <=1 S PIPERACILLIN/TAZOBACTAM <=8 S TRIMETHOPRIM/SULFAMETHOXAZOLE <=0.5/9.5 S TETRACYCLINE <=4 S TOBRAMYCIN <=2 S Unless otherwise specified, Testing Performed by: [facility] RUN DATE: 01/08/21 [facility] *LIVE* PAGE 2 RUN TIME: 827 Specimen Inquiry SPEC: [id number] PATIENT: DIMAS REDMOND [id number] (Continued) Procedure Result CONTINUED ON NEXT PAGE RUN DATE: 01/08/21 [facility] *LIVE* PAGE 3 RUN TIME: 0828 Specimen Inquiry SPEC: [id number] PATIENT: DIMAS REDMOND [id number] (Continued) Procedure Result ANTIMICROBIAL SUSCEPTIBILITY Final (continued) [address] [place] [address] For Inquires, the Physician may contact the Microbiology department at [phone] Blood cultures negative Objective: Assessment: Acute hypoxic respiratory failure status post intubation Asystole status post CODE BLUE January 08, 2021 1. Leukocytosis, 2. E. coli UTI resistant to Augmentin 3. History of extended spectrum beta-lactamase Escherichia coli urinary tract infection in the past. 4. 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 5. Congestive heart failure. 6. Chest pain. 7. NILDA with chronic kidney disease. 8. Diabetes mellitus 2. 9. History of left [id number] amputation. Plan: Plan of Care Continue Zosyn DC Zyvox Monitor labs and cultures. Continue supportive care. Critically ill Prognosis is very poor LADARIUS VENTURA MD Jan 14, 2021 08:01
[2021-01-14 08:30] LABS: BASE EXCESS ABG 4 mmol/L (-3-3); HCO3 ABG 29 mmol/L (21-28); PCO2 ABG 47 mmHg (35-46); PO2 ABG 79 mmHg (65-108); SAT O2 ABG 95 % (92-99)
--- NOTE | 2021-01-14 08:42 | PDOC ---
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 Multiple medical issues including respiratory failure, cardiomyopathy, coronary artery disease, non-ST segment elevation myocardial infarction, leukocytosis, 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 EOMI. CN: no focal findings. Muscle tone: normal. Muscle strength: No withdrawal to pain DTR: 0-1+ Plantar reflex: silent Gait: not examined in bed. Sensory exam: no abnormal findings. No cerebellar signs elicited. Review of Relevant I have reviewed the following items helio (where applicable) has been applied. Labs Laboratory Tests Test 01/12/21 08:45 01/12/21 11:49 01/12/21 18:41 01/12/21 23:32 O2 Saturation 93 % (92-99) Arterial Blood pH 7.42 (7.35-7.45) Arterial Blood pCO2 at Patient Temp 47 mmHg (35-46) Arterial Blood pO2 at Patient Temp 70 mmHg (65-108) Arterial Blood HCO3 30 mmol/L (21-28) Arterial Blood Base Excess 5 mmol/L (-3-3) FiO2 40 Glucose (Fingerstick) 296 mg/dL (70-99) 308 mg/dL (70-99) 228 mg/dL (70-99) Test 01/13/21 04:20 01/13/21 07:40 01/13/21 11:30 01/13/21 11:51 White Blood Count 11.3 x10^3/uL (4.0-11.0) Red Blood Count 3.89 x10^6/uL (3.50-5.40) Hemoglobin 10.5 g/dL (12.0-15.5) Hematocrit 32.7 % (36.0-47.0) Mean Corpuscular Volume 84 fL (79-100) Mean Corpuscular Hemoglobin 27 pg (25-35) Mean Corpuscular Hemoglobin Concent 32 g/dL (31-37) Red Cell Distribution Width 14.5 % (11.5-14.5) Platelet Count 185 x10^3/uL (140-400) Neutrophils (%) (Auto) 81 % (31-73) Lymphocytes (%) (Auto) 9 % (24-48) Monocytes (%) (Auto) 9 % (0-9) Eosinophils (%) (Auto) 1 % (0-3) Basophils (%) (Auto) 0 % (0-3) Neutrophils # (Auto) 9.1 x10^3/uL (1.8-7.7) Lymphocytes # (Auto) 1.0 x10^3/uL (1.0-4.8) Monocytes # (Auto) 1.0 x10^3/uL (0.0-1.1) Eosinophils # (Auto) 0.1 x10^3/uL (0.0-0.7) Basophils # (Auto) 0.0 x10^3/uL (0.0-0.2) Heparin Anti-Xa Act, Unfractionated 0.56 IU/mL (0.30-0.70) 0.58 IU/mL (0.30-0.70) Sodium Level 143 mmol/L (136-145) Potassium Level 3.3 mmol/L (3.5-5.1) Chloride Level 104 mmol/L (98-107) Carbon Dioxide Level 31 mmol/L (21-32) Anion Gap 8 (6-14) Blood Urea Nitrogen 104 mg/dL (7-20) Creatinine 3.9 mg/dL (0.6-1.0) Estimated GFR (Cockcroft-Gault) 11.1 Glucose Level 213 mg/dL (70-99) Calcium Level 8.3 mg/dL (8.5-10.1) Magnesium Level 2.7 mg/dL (1.8-2.4) O2 Saturation 95 % (92-99) Arterial Blood pH 7.42 (7.35-7.45) Arterial Blood pCO2 at Patient Temp 50 mmHg (35-46) Arterial Blood pO2 at Patient Temp 77 mmHg (65-108) Arterial Blood HCO3 31 mmol/L (21-28) Arterial Blood Base Excess 6 mmol/L (-3-3) FiO2 40 Glucose (Fingerstick) 285 mg/dL (70-99) Test 01/13/21 18:08 01/13/21 19:40 01/13/21 23:56 01/14/21 03:05 Glucose (Fingerstick) 257 mg/dL (70-99) 276 mg/dL (70-99) Heparin Anti-Xa Act, Unfractionated 0.36 IU/mL (0.30-0.70) 0.46 IU/mL (0.30-0.70) White Blood Count 11.5 x10^3/uL (4.0-11.0) Red Blood Count 4.05 x10^6/uL (3.50-5.40) Hemoglobin 10.7 g/dL (12.0-15.5) Hematocrit 33.6 % (36.0-47.0) Mean Corpuscular Volume 83 fL (79-100) Mean Corpuscular Hemoglobin 26 pg (25-35) Mean Corpuscular Hemoglobin Concent 32 g/dL (31-37) Red Cell Distribution Width 14.8 % (11.5-14.5) Platelet Count 178 x10^3/uL (140-400) Neutrophils (%) (Auto) 79 % (31-73) Lymphocytes (%) (Auto) 10 % (24-48) Monocytes (%) (Auto) 9 % (0-9) Eosinophils (%) (Auto) 1 % (0-3) Basophils (%) (Auto) 0 % (0-3) Neutrophils # (Auto) 9.1 x10^3/uL (1.8-7.7) Lymphocytes # (Auto) 1.2 x10^3/uL (1.0-4.8) Monocytes # (Auto) 1.0 x10^3/uL (0.0-1.1) Eosinophils # (Auto) 0.1 x10^3/uL (0.0-0.7) Basophils # (Auto) 0.0 x10^3/uL (0.0-0.2) Sodium Level 143 mmol/L (136-145) Potassium Level 3.4 mmol/L (3.5-5.1) Chloride Level 102 mmol/L (98-107) Carbon Dioxide Level 32 mmol/L (21-32) Anion Gap 9 (6-14) Blood Urea Nitrogen 111 mg/dL (7-20) Creatinine 4.3 mg/dL (0.6-1.0) Estimated GFR (Cockcroft-Gault) 9.9 Glucose Level 234 mg/dL (70-99) Calcium Level 8.2 mg/dL (8.5-10.1) Test 01/14/21 06:19 Glucose (Fingerstick) 246 mg/dL (70-99) Laboratory Tests Test 01/13/21 11:30 01/13/21 11:51 01/13/21 18:08 01/13/21 19:40 Heparin Anti-Xa Act, Unfractionated 0.58 IU/mL (0.30-0.70) 0.36 IU/mL (0.30-0.70) Glucose (Fingerstick) 285 mg/dL (70-99) 257 mg/dL (70-99) Test 01/13/21 23:56 01/14/21 03:05 01/14/21 06:19 Glucose (Fingerstick) 276 mg/dL (70-99) 246 mg/dL (70-99) White Blood Count 11.5 x10^3/uL (4.0-11.0) Red Blood Count 4.05 x10^6/uL (3.50-5.40) Hemoglobin 10.7 g/dL (12.0-15.5) Hematocrit 33.6 % (36.0-47.0) Mean Corpuscular Volume 83 fL (79-100) Mean Corpuscular Hemoglobin 26 pg (25-35) Mean Corpuscular Hemoglobin Concent 32 g/dL (31-37) Red Cell Distribution Width 14.8 % (11.5-14.5) Platelet Count 178 x10^3/uL (140-400) Neutrophils (%) (Auto) 79 % (31-73) Lymphocytes (%) (Auto) 10 % (24-48) Monocytes (%) (Auto) 9 % (0-9) Eosinophils (%) (Auto) 1 % (0-3) Basophils (%) (Auto) 0 % (0-3) Neutrophils # (Auto) 9.1 x10^3/uL (1.8-7.7) Lymphocytes # (Auto) 1.2 x10^3/uL (1.0-4.8) Monocytes # (Auto) 1.0 x10^3/uL (0.0-1.1) Eosinophils # (Auto) 0.1 x10^3/uL (0.0-0.7) Basophils # (Auto) 0.0 x10^3/uL (0.0-0.2) Heparin Anti-Xa Act, Unfractionated 0.46 IU/mL (0.30-0.70) Sodium Level 143 mmol/L (136-145) Potassium Level 3.4 mmol/L (3.5-5.1) Chloride Level 102 mmol/L (98-107) Carbon Dioxide Level 32 mmol/L (21-32) Anion Gap 9 (6-14) Blood Urea Nitrogen 111 mg/dL (7-20) Creatinine 4.3 mg/dL (0.6-1.0) Estimated GFR (Cockcroft-Gault) 9.9 Glucose Level 234 mg/dL (70-99) Calcium Level 8.2 mg/dL (8.5-10.1) Microbiology 01/05/21 Blood Culture - Final, Complete NO GROWTH AFTER 5 DAYS 01/05/21 Urine Culture - Final, Complete 01/05/21 Antimicrobic Susceptibility - Final, Complete Medications Current Medications Furosemide (Lasix) 80 mg 1X ONCE IVP Last administered on 01/05/21at 09:21; Start 01/05/21 at 09:00; Stop 01/05/21 at 09:01; Status DC Nitroglycerin (Nitrostat) 0.4 mg PRN Q5MIN PRN SL CHEST PAIN Last administered on 01/08/21at 03:16; Start 01/05/21 at 09:30 Ceftriaxone Sodium (Rocephin) 1 gm 1X ONCE IVP Last administered on 01/05/21at 12:41; Start 01/05/21 at 12:00; Stop 01/05/21 at 12:09; Status DC Aspirin (Raulito Aspirin) 325 mg DAILY PO Last administered on 01/09/21at 08:12; Start 01/05/21 at 12:00; Stop 01/10/21 at 11:41; Status DC Insulin Human Lispro (HumaLOG) 4 units TIDAC SQ Last administered on 01/08/21at 08:25; Start 01/05/21 at 16:30; Stop 01/09/21 at 13:18; Status DC Insulin Glargine (Lantus Syringe) 12 unit QHS SQ Last administered on 01/08/21at 21:14; Start 01/05/21 at 21:00; Stop 01/09/21 at 13:18; Status DC Insulin Human Lispro (HumaLOG) 0-8 UNITS TIDWMEALS SQ Last administered on 01/05/21at 23:41; Start 01/05/21 at 17:00; Stop 01/09/21 at 13:18; Status DC Ondansetron HCl (Zofran Odt) 4 mg PRN Q6HRS PRN PO NAUSEA/VOMITING Last administered on 01/06/21at 23:20; Start 01/05/21 at 11:45 Ondansetron HCl (Zofran Odt) 4 mg TIDAC PO Last administered on 01/08/21at 08:16; Start 01/05/21 at 12:00; Stop 01/11/21 at 18:30; Status DC Levothyroxine Sodium (Synthroid) 150 mcg DAILY06 PO Last administered on 01/14/21at 06:18; Start 01/06/21 at 06:00 Furosemide (Lasix) 40 mg BID92 PO Last administered on 01/06/21at 08:38; Start 01/05/21 at 14:00; Stop 01/06/21 at 10:42; Status DC Metolazone (Zaroxolyn) 2.5 mg MoWeFr@0900 PO Last administered on 01/08/21at 08:17; Start 01/06/21 at 09:00; Stop 01/08/21 at 12:26; Status DC Potassium Chloride (Klor-Con) 20 meq BID PO Last administered on 01/06/21at 08:38; Start 01/05/21 at 21:00; Stop 01/06/21 at 10:42; Status DC Metoprolol Succinate (Toprol Xl) 50 mg DAILY PO Last administered on 01/13/21at 09:09; Start 01/06/21 at 09:00 Amlodipine Besylate (Norvasc) 5 mg DAILY PO Last administered on 01/08/21at 08:18; Start 01/06/21 at 09:00; Stop 01/09/21 at 13:18; Status DC Senna/Docusate Sodium (Senna Plus) 2 tab QHS PO Last administered on 01/13/21at 20:35; Start 01/05/21 at 21:00 Allopurinol (Zyloprim) 100 mg DAILY PO Last administered on 01/13/21 09:08; Start 01/06/21 at 09:00 Atorvastatin Calcium (Lipitor) 40 mg QHS PO Last administered on 01/13/21at 20:35; Start 01/05/21 at 21:00 Paroxetine HCl (Paxil) 20 mg DAILY PO Last administered on 01/11/21at 12:49; Start 01/06/21 at 09:00; Stop 01/11/21 at 13:03; Status DC Piperacillin Sod/ Tazobactam Sod 3.375 gm/Sodium Chloride 50 ml @ 100 mls/hr Q6HRS IV Last administered on 01/06/21at 06:08; Start 01/05/21 at 12:00; Stop 01/06/21 at 10:42; Status DC Heparin Sodium (Porcine) (Heparin Sodium) 5,000 unit Q12HR SQ ; Start 01/05/21 at 21:00; Stop 01/05/21 at 18:35; Status DC Famotidine (Pepcid) 20 mg QHS PO Last administered on 01/13/21at 20:35; Start 01/05/21 at 21:00 Acetaminophen (Tylenol) 650 mg PRN Q6HRS PRN PO MILD PAIN / TEMP > 100.3'F Last administered on 01/10/21at 03:59; Start 01/05/21 at 12:15 Heparin Sodium/ Dextrose 250 ml @ 13.32 mls/ hr CONT PRN IV PER PROTOCOL Last administered on 01/06/21at 17:00; Start 01/05/21 at 19:00; Stop 01/07/21 at 14:35; Status DC Heparin Sodium (Porcine) (Heparin Sodium) 2,800 unit PRN Q6HRS PRN IV FOR UFH LEVEL LESS THAN 0.2 Last administered on 01/06/21at 21:30; Start 01/05/21 at 19:00; Stop 01/07/21 at 14:35; Status DC Perflutren Protein Type A Microsphe (Optison) 0.66 mg STK-MED ONCE IV ; Start 01/06/21 at 07:20; Stop 01/06/21 at 07:20; Status DC Perflutren Protein Type A Microsphe (Optison) 0.66 mg 1X ONCE IV ; Start 01/06/21 at 08:15; Stop 01/06/21 at 08:16; Status DC Piperacillin Sod/ Tazobactam Sod 2.25 gm/Sodium Chloride 50 ml @ 100 mls/hr Q6HRS IV Last administered on 01/08/21at 05:17; Start 01/06/21 at 12:00; Stop 01/08/21 at 10:40; Status DC Potassium Chloride (Klor-Con) 20 meq TID PO Last administered on 01/07/21at 08:44; Start 01/06/21 at 14:00; Stop 01/07/21 at 10:42; Status DC Furosemide (Lasix) 40 mg BID92 IVP Last administered on 01/07/21at 08:46; Start 01/06/21 at 14:00; Stop 01/07/21 at 10:42; Status DC Potassium Chloride (Klor-Con) 20 meq 1X ONCE PO Last administered on 01/06/21at 11:19; Start 01/06/21 at 11:30; Stop 01/06/21 at 11:31; Status DC Lactobacillus Rhamnosus (Culturelle) 1 cap BID PO Last administered on 01/13/21at 20:35; Start 01/06/21 at 21:00 Perflutren Protein Type A Microsphe (Optison) 0.66 mg STK-MED ONCE IV ; Start 01/06/21 at 08:00; Stop 01/07/21 at 09:00; Status DC Potassium Chloride (Klor-Con) 20 meq BID PO Last administered on 01/08/21at 08:16; Start 01/07/21 at 21:00; Stop 01/08/21 at 12:26; Status DC Furosemide (Lasix) 40 mg DAILY PO Last administered on 01/08/21at 08:16; Start 01/08/21 at 09:00; Stop 01/08/21 at 12:26; Status DC Potassium Chloride (Klor-Con) 20 meq 1X ONCE PO Last administered on 01/07/21at 11:07; Start 01/07/21 at 10:45; Stop 01/07/21 at 10:46; Status DC Bisacodyl (Dulcolax Supp) 10 mg PRN DAILY PRN [place] CONSTIPATION Last administered on 01/08/21at 02:20; Start 01/08/21 at 02:15 Dobutamine HCl/ Dextrose 250 ml @ 17.43 mls/ hr CONT PRN IV SEE I/O RECORD Last administered on 01/08/21at 10:20; Start 01/08/21 at 10:00 Ceftriaxone Sodium (Rocephin) 1 gm Q24H IVP Last administered on 01/08/21at 11:06; Start 01/08/21 at 11:00; Stop 01/09/21 at 10:15; Status DC Heparin Sodium (Porcine) (Heparin Sodium) 5,000 unit Q12HR SQ Last administered on 01/09/21at 22:01; Start 01/08/21 at 13:00; Stop 01/10/21 at 05:35; Status DC Acetaminophen/ Hydrocodone Bitart (Lortab 5/325) 1 tab PRN Q4HRS PRN PO PAIN; Start 01/08/21 at 13:45; Status UNV Norepinephrine Bitartrate 8 mg/ Dextrose 258 ml @ 22.485 mls/ hr CONT PRN IV PER PROTOCOL Last administered on 01/09/21at 11:05; Start 01/08/21 at 19:00 Norepinephrine Bitartrate 8 mg/ Dextrose 258 ml @ 22.485 mls/ hr CONT PRN IV PER PROTOCOL; Start 01/08/21 at 19:00; Status UNV Fentanyl Citrate 30 ml @ 0 mls/hr CONT PRN IV SEE PROTOCOL Last administered on 01/11/21at 02:06; Start 01/08/21 at 19:00 Midazolam HCl 100 ml @ 1 mls/hr CONT PRN IV SEE PROTOCOL Last administered on 01/11/21at 03:51; Start 01/08/21 at 19:00 Propofol 100 ml @ 0.1 mls/hr CONT PRN IV PER PROTOCOL; Start 01/08/21 at 19:00 Chlorhexidine Gluconate (Peridex) 15 ml BID MM Last administered on 01/13/21at 20:35; Start 01/08/21 at 21:00 Glycerin/ Hypromellose/ Polyethylene (Artificial Tears) 1 drop PRN Q1HR PRN OU DRY EYE; Start 01/08/21 at 19:00 Dexmedetomidine HCl 400 mcg/ Sodium Chloride 100 ml @ 5.8 mls/hr CONT PRN IV PER PROTOCOL; Start 01/08/21 at 19:00 Sodium Chloride 500 ml @ 500 mls/hr 1X PRN PRN IV SEE COMMENTS; Start 01/08/21 at 19:00 Atropine Sulfate (ATROPINE 0.5mg SYRINGE) 0.5 mg PRN Q5MIN PRN IV SEE COMMENTS; Start 01/08/21 at 19:00 Ringer's Solution 1,000 ml @ 100 mls/hr Q10H IV Last administered on 01/08/21at 21:08; Start 01/08/21 at 20:15; Stop 01/10/21 at 08:42; Status DC Fentanyl Citrate (Fentanyl 2ml Vial) 100 mcg STK-MED ONCE .ROUTE ; Start 01/08/21 at 20:42; Stop 01/08/21 at 20:42; Status DC Piperacillin Sod/ Tazobactam Sod 2.25 gm/Sodium Chloride 50 ml @ 100 mls/hr Q6HRS IV Last administered on 01/11/21at 05:56; Start 01/09/21 at 12:00; Stop 01/11/21 at 12:38; Status DC Insulin Human Lispro (HumaLOG) 0-8 UNITS BG 400-49... Q6HRS SQ Last ad ministered on 01/14/21at 06:20; Start 01/09/21 at 18:00 Heparin Sodium/ Dextrose 250 ml @ 10 mls/hr CONT PRN IV PER PROTOCOL Last administered on 01/13/21at 20:35; Start 01/10/21 at 05:30 Heparin Sodium (Porcine) (Heparin Sodium) 2,850 unit PRN Q6HRS PRN IV FOR UFH LEVEL LESS THAN 0.2 Last administered on 01/10/21at 13:08; Start 01/10/21 at 05:30 Info (Anti-Coagulation Monitoring By Pharmacy) 1 each PRN DAILY PRN MC PER PROTOCOL Last administered on 01/10/21at 10:00; Start 01/10/21 at 05:45 Furosemide (Lasix) 40 mg 1X ONCE IVP Last administered on 01/10/21at 09:15; Start 01/10/21 at 08:45; Stop 01/10/21 at 08:46; Status DC Aspirin (Aspirin Chewable) 81 mg DAILYWBKFT PO Last administered on 01/13/21at 09:08; Start 01/10/21 at 09:15 Linezolid (Zyvox) 600 mg BID PO Last administered on 01/13/21at 20:35; Start 01/10/21 at 16:00 Atropine Sulfate (ATROPINE 1mg SYRINGE) 1 mg STK-MED ONCE .ROUTE ; Start 01/05/21 at 16:07; Stop 01/10/21 at 16:08; Status DC Epinephrine HCl (EPINEPHrine SYRINGE) 2 mg STK-MED ONCE .ROUTE ; Start 01/05/21 at 16:07; Stop 01/10/21 at 16:08; Status DC Midazolam HCl (Versed) 5 mg STK-MED ONCE .ROUTE ; Start 01/05/21 at 16:07; Stop 01/10/21 at 16:08; Status DC Sodium Bicarbonate (Sodium Bicarb Adult 8.4% Syr) 100 meq STK-MED ONCE .ROUTE ; Start 01/05/21 at 16:07; Stop 01/10/21 at 16:08; Status DC Piperacillin Sod/ Tazobactam Sod 2.25 gm/Sodium Chloride 50 ml @ 100 mls/hr Q8HRS IV Last administered on 01/14/21at 06:17; Start 01/11/21 at 14:00 Potassium Bicarbonate (Potassium Effervescent Tablet) 40 meq 1X ONCE PO ; Start 01/11/21 at 09:00; Stop 01/11/21 at 13:05; Status DC Potassium Bicarbonate (Potassium Effervescent Tablet) 40 meq 1X ONCE PO Last administered on 01/11/21at 18:12; Start 01/11/21 at 18:00; Stop 01/11/21 at 18:01; Status DC Potassium Bicarbonate (Potassium Effervescent Tablet) 20 meq 1X ONCE PO Last administered on 01/12/21at 14:06; Start 01/12/21 at 13:00; Stop 01/12/21 at 13:01; Status DC Insulin Human Lispro (HumaLOG) 6 units Q6HRS SQ Last administered on 01/13/21at 05:38; Start 01/12/21 at 13:00; Stop 01/13/21 at 10:42; Status DC Insulin Human Lispro (HumaLOG) 10 units Q6HRS SQ Last administered on 01/14/21at 06:00; Start 01/13/21 at 12:00 Potassium Bicarbonate (Potassium Effervescent Tablet) 20 meq 1X ONCE PO Last administered on 01/13/21at 12:01; Start 01/13/21 at 11:00; Stop 01/13/21 at 11:01; Status DC Active Scripts Active Cephalexin 500 Mg Tablet 1 Tab PO TID 7 Days Thera-M Tablet (Multivits,Ca,Minerals/Iron/Fa) 1 Each Tablet 1 Tab PO DAILY Vitamin C (Ascorbic Acid) 500 Mg Tablet 500 Mg PO DAILY Lantus (Insulin Glargine,Hum.rec.anlog) 100 Unit/1 Ml Vial 12 Unit SQ QHS Metolazone 2.5 Mg Tablet 2.5 Mg PO QMWF Klor-Con M20 (Potassium Chloride) 20 Meq Tab.er.prt 20 Meq PO BID Toprol XL (Metoprolol Succinate) 50 Mg Tab.er.24h 50 Mg PO DAILY Furosemide 40 Mg Tablet 40 Mg PO BID Amlodipine Besylate 5 Mg Tablet 5 Mg PO DAILY Atorvastatin Calcium 40 Mg Tablet 40 Mg PO QHS Admelog (Insulin Lispro) 100 Unit/1 Ml Vial 6 Units SQ TIDAC hold if blood sugar less than 90 before a meal Nyamyc (Nystatin) 15 Gm Powder 1 Renee TP BID Stool Soft-Stimulant Lax Tab (Sennosides/Docusate Sodium) 1 Each Tablet 2 Tab PO DAILY Feosol (Ferrous Sulfate) 325 Mg Tablet 325 Mg PO QODAY Synthroid (Levothyroxine Sodium) 150 Mcg Tablet 150 Mcg PO DAILY06 Allopurinol 100 Mg Tablet 100 Mg PO DAILY Paroxetine Hcl 20 Mg Tablet 20 Mg PO DAILY Reported Aspirin 81 Mg Tab.chew 81 Mg PO HS Tylenol (Acetaminophen) 325 Mg Tablet 650 Mg PO PRN Q4HRS Vitals/I & O Vital Sign - Last 24 Hours 01/13/21 01/13/21 01/13/21 01/13/21 09:00 09:02 09:09 10:00 Pulse 66 65 66 Resp 12 12 B/P (MAP) 95/54 100/55 101/57 Pulse Ox 95 96 96 O2 Delivery Ventilator Ventilator Ventilator 01/13/21 01/13/21 01/13/21 01/13/21 11:00 11:37 12:00 12:00 Temp 98.3 98.3 Pulse 66 64 Resp 12 12 B/P (MAP) 100/52 115/60 Pulse Ox 96 96 97 O2 Delivery Ventilator Ventilator Mechanical Ventilator Ventilator 01/13/21 01/13/21 01/13/21 01/13/21 13:00 13:15 14:00 15:00 Pulse 66 68 68 Resp 12 12 12 B/P (MAP) 121/66 126/72 106/63 Pulse Ox 96 96 96 96 O2 Delivery Ventilator Ventilator Ventilator Ventilator 01/13/21 01/13/21 01/13/21 01/13/21 16:00 16:00 16:02 17:03 Temp 98.8 98.8 98.8 98.8 Pulse 68 64 Resp 12 12 B/P (MAP) 107/63 112/54 Pulse Ox 97 96 97 O2 Delivery Mechanical Ventilator Ventilator Ventilator Ventilator 01/13/21 01/13/21 01/13/21 01/13/21 17:35 18:00 19:00 19:19 Pulse 71 69 Resp 12 12 B/P (MAP) 109/54 108/51 Pulse Ox 96 97 96 98 O2 Delivery Ventilator Ventilator Ventilator Ventilator 01/13/21 01/13/21 01/13/21 01/13/21 20:00 20:00 21:00 21:15 Temp 98.7 98.7 Pulse 67 67 Resp 12 12 B/P (MAP) 106/55 108/61 Pulse Ox 96 96 96 O2 Delivery Ventilator Mechanical Ventilator Ventilator Ventilator 01/13/21 01/13/21 01/14/21 01/14/21 22:00 23:00 00:00 00:00 Temp 98.7 98.7 Pulse 66 66 69 Resp 12 12 12 B/P (MAP) 111/57 105/53 113/61 Pulse Ox 96 96 96 O2 Delivery Ventilator Ventilator Ventilator Mechanical Ventilator 01/14/21 01/14/21 01/14/21 01/14/21 00:03 01:00 02:00 02:45 Pulse 70 67 Resp 12 12 B/P (MAP) 107/60 111/59 Pulse Ox 96 96 96 96 O2 Delivery Ventilator Ventilator Ventilator Ventilator 01/14/21 01/14/21 01/14/21 01/14/21 03:00 04:00 04:00 05:00 Temp 98.3 98.3 Pulse 71 68 67 Resp 12 12 12 B/P (MAP) 108/58 112/56 109/54 Pulse Ox 96 96 96 O2 Delivery Ventilator Mechanical Ventilator Ventilator Ventilator 01/14/21 01/14/21 01/14/21 01/14/21 05:10 06:00 07:19 08:22 Temp 98.9 98.9 Pulse 69 74 Resp 12 12 B/P (MAP) 108/55 113/61 Pulse Ox 97 96 96 94 O2 Delivery Ventilator Ventilator Ventilator Ventilator Intake and Output 01/13/21 01/13/21 01/14/21 15:00 23:00 07:00 Intake Total 420 ml 1176 ml 260 ml Output Total 195 ml 130 ml 105 ml Balance 225 ml 1046 ml [address] head: Acute Change: No evidence of an acute infarct or other acute parenchymal process. Hemorrhage: No evidence of acute intracranial hemorrhage. Mass Lesion/Mass Effect: No evidence of intracranial mass or extraaxial fluid collection. No significant mass effect. Chronic Change: Extensive confluent foci of hypoattenuation in the supratentorial white matter, nonspecific but likely represents marked microvascular ischemia with superimposed old infarct(s) not excluded. Atherosclerotic calcification of the anterior and posterior circulation. Parenchyma: Moderate generalized volume loss. Ventricles: Ventricular enlargement concordant with degree of parenchymal volume loss. Paranasal Sinuses and Skull Base: Visualized paranasal sinuses clear. Visualized skull base and soft tissues unremarkable. IMPRESSION: No evidence of acute intracranial abnormality or significant interval change. Justicifation of Admission Dx: Justifications for Admission: Justification of Admission Dx: N/A PAUL SWANSON MD Jan 14, 2021 08:42
[2021-01-14] MEDS: METOPROLOL SUCC 24HR ER 50 MG TAB.ER.24H. PO SCH (09:00)
[2021-01-14 09:07] LABS: FIO2 ABG 40/VENT
--- NOTE | 2021-01-14 10:14 | PDOC ---
PROGRESS NOTES Date of Service DATE: 01/14/21 TIME: 10:03 Subjective Subjective unresponsive and intubated. discussed with nurse. ct head negative. lab reviewed. blood sugars high. neurology notes reviewed. Objective Objective Vital Signs Date Time Temp Pulse Resp B/P (MAP) Pulse Ox O2 Delivery O2 Flow Rate FiO2 01/14/21 10:00 95 Ventilator 01/14/21 08:00 70 12 116/62 01/14/21 07:19 98.9 98.9 01/10/21 17:40 2.0 Intake and Output 01/14/21 07:06 Intake Total 1856 ml Output Total 430 ml Balance 1426 ml IV Total 316 ml Tube Feeding 1120 ml Other 420 ml Output Urine Total 430 ml Physical Exam Abdomen: Soft, Other (obese) Heart: Regular rate, Normal S1, Normal S2 Extremities: Other (mild edema RUE) General: Other (unresponsive) HEENT: Atraumatic, Other (NG tube for feeding) Lungs: Clear to auscultation Neck: Supple Neuro: Other (unresponsive) Psych/Mental Status: Other (unresponsive) Skin: No rashes Assessment Assessment Problems1. Chest pain, resolved with sublingual nitroglycerin. 2. Non-ST segment elevated myocardial infarction. 3. Bdanf-[id number] systolic congestive heart failure, 4. Leukocytosis resolved 5. Coronary artery disease, nonobstructive. 60% LAD 05/26 per cardiac cath 6. Diabetes mellitus type 2, on insulin with nephropathy and neuropathy. hyperglycemia 7. Chronic kidney disease stage.3. 8. Hypertension. 9. Hyperlipidemia. 10. Hypothyroidism. 11. Obstructive sleep apnea. Treated with CPAP. 12. Morbid obesity. 13. Chronic venous insufficiency of the legs with left below-knee amputation, severe protein calorie malnutrition acute respiratory failure. hx of co2 narcosis in past acute kidney injury due to cardiorenal syndrome e. coli uti code blue/PEA 01/08/21 acute hypoxic and hypercapnic respiratory failure on ventilator hypokalemia acute metabolic/hypoxic encephalopathy Medical Problems: (1) CHF exacerbation Status: Acute (2) CKD (chronic kidney disease) Status: Acute (3) NSTEMI (non-ST elevated myocardial infarction) Status: Acute (4) Person under investigation for COVID-19 Status: Acute (5) Respiratory failure, unspecified with hypoxia Status: Acute (6) UTI (urinary tract infection) Status: Acute Plan Plan of Care continue ventilator support continue NG feeding continue zosyn. increase insulin kcl times 1 lab tomorrow continue iv heparin await DPOA decision on further care or withdrawal of care Comment Review of Relevant I have reviewed the following items helio (where applicable) has been applied. Labs Laboratory Tests Test 01/12/21 11:49 01/12/21 18:41 01/12/21 23:32 01/13/21 04:20 Glucose (Fingerstick) 296 mg/dL (70-99) 308 mg/dL (70-99) 228 mg/dL (70-99) White Blood Count 11.3 x10^3/uL (4.0-11.0) Red Blood Count 3.89 x10^6/uL (3.50-5.40) Hemoglobin 10.5 g/dL (12.0-15.5) Hematocrit 32.7 % (36.0-47.0) Mean Corpuscular Volume 84 fL (79-100) Mean Corpuscular Hemoglobin 27 pg (25-35) Mean Corpuscular Hemoglobin Concent 32 g/dL (31-37) Red Cell Distribution Width 14.5 % (11.5-14.5) Platelet Count 185 x10^3/uL (140-400) Neutrophils (%) (Auto) 81 % (31-73) Lymphocytes (%) (Auto) 9 % (24-48) Monocytes (%) (Auto) 9 % (0-9) Eosinophils (%) (Auto) 1 % (0-3) Basophils (%) (Auto) 0 % (0-3) Neutrophils # (Auto) 9.1 x10^3/uL (1.8-7.7) Lymphocytes # (Auto) 1.0 x10^3/uL (1.0-4.8) Monocytes # (Auto) 1.0 x10^3/uL (0.0-1.1) Eosinophils # (Auto) 0.1 x10^3/uL (0.0-0.7) Basophils # (Auto) 0.0 x10^3/uL (0.0-0.2) Heparin Anti-Xa Act, Unfractionated 0.56 IU/mL (0.30-0.70) Sodium Level 143 mmol/L (136-145) Potassium Level 3.3 mmol/L (3.5-5.1) Chloride Level 104 mmol/L (98-107) Carbon Dioxide Level 31 mmol/L (21-32) Anion Gap 8 (6-14) Blood Urea Nitrogen 104 mg/dL (7-20) Creatinine 3.9 mg/dL (0.6-1.0) Estimated GFR (Cockcroft-Gault) 11.1 Glucose Level 213 mg/dL (70-99) Calcium Level 8.3 mg/dL (8.5-10.1) Magnesium Level 2.7 mg/dL (1.8-2.4) Test 01/13/21 07:40 01/13/21 11:30 01/13/21 11:51 01/13/21 18:08 O2 Saturation 95 % (92-99) Arterial Blood pH 7.42 (7.35-7.45) Arterial Blood pCO2 at Patient Temp 50 mmHg (35-46) Arterial Blood pO2 at Patient Temp 77 mmHg (65-108) Arterial Blood HCO3 31 mmol/L (21-28) Arterial Blood Base Excess 6 mmol/L (-3-3) FiO2 40 Heparin Anti-Xa Act, Unfractionated 0.58 IU/mL (0.30-0.70) Glucose (Fingerstick) 285 mg/dL (70-99) 257 mg/dL (70-99) Test 01/13/21 19:40 01/13/21 23:56 01/14/21 03:05 01/14/21 06:19 Heparin Anti-Xa Act, Unfractionated 0.36 IU/mL (0.30-0.70) 0.46 IU/mL (0.30-0.70) Glucose (Fingerstick) 276 mg/dL (70-99) 246 mg/dL (70-99) White Blood Count 11.5 x10^3/uL (4.0-11.0) Red Blood Count 4.05 x10^6/uL (3.50-5.40) Hemoglobin 10.7 g/dL (12.0-15.5) Hematocrit 33.6 % (36.0-47.0) Mean Corpuscular Volume 83 fL (79-100) Mean Corpuscular Hemoglobin 26 pg (25-35) Mean Corpuscular Hemoglobin Concent 32 g/dL (31-37) Red Cell Distribution Width 14.8 % (11.5-14.5) Platelet Count 178 x10^3/uL (140-400) Neutrophils (%) (Auto) 79 % (31-73) Lymphocytes (%) (Auto) 10 % (24-48) Monocytes (%) (Auto) 9 % (0-9) Eosinophils (%) (Auto) 1 % (0-3) Basophils (%) (Auto) 0 % (0-3) Neutrophils # (Auto) 9.1 x10^3/uL (1.8-7.7) Lymphocytes # (Auto) 1.2 x10^3/uL (1.0-4.8) Monocytes # (Auto) 1.0 x10^3/uL (0.0-1.1) Eosinophils # (Auto) 0.1 x10^3/uL (0.0-0.7) Basophils # (Auto) 0.0 x10^3/uL (0.0-0.2) Sodium Level 143 mmol/L (136-145) Potassium Level 3.4 mmol/L (3.5-5.1) Chloride Level 102 mmol/L (98-107) Carbon Dioxide Level 32 mmol/L (21-32) Anion Gap 9 (6-14) Blood Urea Nitrogen 111 mg/dL (7-20) Creatinine 4.3 mg/dL (0.6-1.0) Estimated GFR (Cockcroft-Gault) 9.9 Glucose Level 234 mg/dL (70-99) Calcium Level 8.2 mg/dL (8.5-10.1) Test 01/14/21 08:00 O2 Saturation 95 % (92-99) Arterial Blood pH 7.41 (7.35-7.45) Arterial Blood pCO2 at Patient Temp 47 mmHg (35-46) Arterial Blood pO2 at Patient Temp 79 mmHg (65-108) Arterial Blood HCO3 29 mmol/L (21-28) Arterial Blood Base Excess 4 mmol/L (-3-3) FiO2 40/vent Laboratory Tests Test 01/13/21 11:30 01/13/21 11:51 01/13/21 18:08 01/13/21 19:40 Heparin Anti-Xa Act, Unfractionated 0.58 IU/mL (0.30-0.70) 0.36 IU/mL (0.30-0.70) Glucose (Fingerstick) 285 mg/dL (70-99) 257 mg/dL (70-99) Test 01/13/21 23:56 01/14/21 03:05 01/14/21 06:19 01/14/21 08:00 Glucose (Fingerstick) 276 mg/dL (70-99) 246 mg/dL (70-99) White Blood Count 11.5 x10^3/uL (4.0-11.0) Red Blood Count 4.05 x10^6/uL (3.50-5.40) Hemoglobin 10.7 g/dL (12.0-15.5) Hematocrit 33.6 % (36.0-47.0) Mean Corpuscular Volume 83 fL (79-100) Mean Corpuscular Hemoglobin 26 pg (25-35) Mean Corpuscular Hemoglobin Concent 32 g/dL (31-37) Red Cell Distribution Width 14.8 % (11.5-14.5) Platelet Count 178 x10^3/uL (140-400) Neutrophils (%) (Auto) 79 % (31-73) Lymphocytes (%) (Auto) 10 % (24-48) Monocytes (%) (Auto) 9 % (0-9) Eosinophils (%) (Auto) 1 % (0-3) Basophils (%) (Auto) 0 % (0-3) Neutrophils # (Auto) 9.1 x10^3/uL (1.8-7.7) Lymphocytes # (Auto) 1.2 x10^3/uL (1.0-4.8) Monocytes # (Auto) 1.0 x10^3/uL (0.0-1.1) Eosinophils # (Auto) 0.1 x10^3/uL (0.0-0.7) Basophils # (Auto) 0.0 x10^3/uL (0.0-0.2) Heparin Anti-Xa Act, Unfractionated 0.46 IU/mL (0.30-0.70) Sodium Level 143 mmol/L (136-145) Potassium Level 3.4 mmol/L (3.5-5.1) Chloride Level 102 mmol/L (98-107) Carbon Dioxide Level 32 mmol/L (21-32) Anion Gap 9 (6-14) Blood Urea Nitrogen 111 mg/dL (7-20) Creatinine 4.3 mg/dL (0.6-1.0) Estimated GFR (Cockcroft-Gault) 9.9 Glucose Level 234 mg/dL (70-99) Calcium Level 8.2 mg/dL (8.5-10.1) O2 Saturation 95 % (92-99) Arterial Blood pH 7.41 (7.35-7.45) Arterial Blood pCO2 at Patient Temp 47 mmHg (35-46) Arterial Blood pO2 at Patient Temp 79 mmHg (65-108) Arterial Blood HCO3 29 mmol/L (21-28) Arterial Blood Base Excess 4 mmol/L (-3-3) FiO2 40/vent Microbiology 01/05/21 Blood Culture - Final, Complete NO GROWTH AFTER 5 DAYS 01/05/21 Urine Culture - Final, Complete 01/05/21 Antimicrobic Susceptibility - Final, Complete Medications Current Medications Furosemide (Lasix) 80 mg 1X ONCE IVP Last administered on 01/05/21at 09:21; Start 01/05/21 at 09:00; Stop 01/05/21 at 09:01; Status DC Nitroglycerin (Nitrostat) 0.4 mg PRN Q5MIN PRN SL CHEST PAIN Last administered on 01/08/21at 03:16; Start 01/05/21 at 09:30 Ceftriaxone Sodium (Rocephin) 1 gm 1X ONCE IVP Last administered on 01/05/21at 12:41; Start 01/05/21 at 12:00; Stop 01/05/21 at 12:09; Status DC Aspirin (Raulito Aspirin) 325 mg DAILY PO Last administered on 01/09/21at 08:12; Start 01/05/21 at 12:00; Stop 01/10/21 at 11:41; Status DC Insulin Human Lispro (HumaLOG) 4 units TIDAC SQ Last administered on 01/08/21at 08:25; Start 01/05/21 at 16:30; Stop 01/09/21 at 13:18; Status DC Insulin Glargine (Lantus Syringe) 12 unit QHS SQ Last administered on 01/08/21at 21:14; Start 01/05/21 at 21:00; Stop 01/09/21 at 13:18; Status DC Insulin Human Lispro (HumaLOG) 0-8 UNITS TIDWMEALS SQ Last administered on 01/05/21at 23:41; Start 01/05/21 at 17:00; Stop 01/09/21 at 13:18; Status DC Ondansetron HCl (Zofran Odt) 4 mg PRN Q6HRS PRN PO NAUSEA/VOMITING Last administered on 01/06/21at 23:20; Start 01/05/21 at 11:45 Ondansetron HCl (Zofran Odt) 4 mg TIDAC PO Last administered on 01/08/21at 08:16; Start 01/05/21 at 12:00; Stop 01/11/21 at 18:30; Status DC Levothyroxine Sodium (Synthroid) 150 mcg DAILY06 PO Last administered on 01/14/21at 06:18; Start 01/06/21 at 06:00 Furosemide (Lasix) 40 mg BID92 PO Last administered on 01/06/21at 08:38; Start 01/05/21 at 14:00; Stop 01/06/21 at 10:42; Status DC Metolazone (Zaroxolyn) 2.5 mg MoWeFr@0900 PO Last administered on 01/08/21at 08:17; Start 01/06/21 at 09:00; Stop 01/08/21 at 12:26; Status DC Potassium Chloride (Klor-Con) 20 meq BID PO Last administered on 01/06/21at 08:38; Start 01/05/21 at 21:00; Stop 01/06/21 at 10:42; Status DC Metoprolol Succinate (Toprol Xl) 50 mg DAILY PO Last administered on 01/13/21at 09:09; Start 01/06/21 at 09:00 Amlodipine Besylate (Norvasc) 5 mg DAILY PO Last administered on 01/08/21at 08:18; Start 01/06/21 at 09:00; Stop 01/09/21 at 13:18; Status DC Senna/Docusate Sodium (Senna Plus) 2 tab QHS PO Last administered on 01/13/21at 20:35; Start 01/05/21 at 21:00 Allopurinol (Zyloprim) 100 mg DAILY PO Last administered on 01/13/21at 09:08; Start 01/06/21 at 09:00 Atorvastatin Calcium (Lipitor) 40 mg QHS PO Last administered on 01/13/21at 20:35; Start 01/05/21 at 21:00 Paroxetine HCl (Paxil) 20 mg DAILY PO Last administered on 01/11/21at 12:49; Start 01/06/21 at 09:00; Stop 01/11/21 at 13:03; Status DC Piperacillin Sod/ Tazobactam Sod 3.375 gm/Sodium Chloride 50 ml @ 100 mls/hr Q6HRS IV Last administered on 01/06/21at 06:08; Start 01/05/21 at 12:00; Stop 01/06/21 at 10:42; Status DC Heparin Sodium (Porcine) (Heparin Sodium) 5,000 unit Q12HR SQ ; Start 01/05/21 at 21:00; Stop 01/05/21 at 18:35; Status DC Famotidine (Pepcid) 20 mg QHS PO Last administered on 01/13/21at 20:35; Start 01/05/21 at 21:00 Acetaminophen (Tylenol) 650 mg PRN Q6HRS PRN PO MILD PAIN / TEMP > 100.3'F Last administered on 01/10/21at 03:59; Start 01/05/21 at 12:15 Heparin Sodium/ Dextrose 250 ml @ 13.32 mls/ hr CONT PRN IV PER PROTOCOL Last administered on 01/06/21at 17:00; Start 01/05/21 at 19:00; Stop 01/07/21 at 14:35; Status DC Heparin Sodium (Porcine) (Heparin Sodium) 2,800 unit PRN Q6HRS PRN IV FOR UFH LEVEL LESS THAN 0.2 Last administered on 01/06/21at 21:30; Start 01/05/21 at 19:00; Stop 01/07/21 at 14:35; Status DC Perflutren Protein Type A Microsphe (Optison) 0.66 mg STK-MED ONCE IV ; Start 01/06/21 at 07:20; Stop 01/06/21 at 07:20; Status DC Perflutren Protein Type A Microsphe (Optison) 0.66 mg 1X ONCE IV ; Start 01/06/21 at 08:15; Stop 01/06/21 at 08:16; Status DC Piperacillin Sod/ Tazobactam Sod 2.25 gm/Sodium Chloride 50 ml @ 100 mls/hr Q6HRS IV Last administered on 01/08/21at 05:17; Start 01/06/21 at 12:00; Stop 01/08/21 at 10:40; Status DC Potassium Chloride (Klor-Con) 20 meq TID PO Last administered on 01/07/21at 08:44; Start 01/06/21 at 14:00; Stop 01/07/21 at 10:42; Status DC Furosemide (Lasix) 40 mg BID92 IVP Last administered on 01/07/21at 08:46; Start 01/06/21 at 14:00; Stop 01/07/21 at 10:42; Status DC Potassium Chloride (Klor-Con) 20 meq 1X ONCE PO Last administered on 01/06/21at 11:19; Start 01/06/21 at 11:30; Stop 01/06/21 at 11:31; Status DC Lactobacillus Rhamnosus (Culturelle) 1 cap BID PO Last administered on 01/13/21at 20:35; Start 01/06/21 at 21:00 Perflutren Protein Type A Microsphe (Optison) 0.66 mg STK-MED ONCE IV ; Start 01/06/21 at 08:00; Stop 01/07/21 at 09:00; Status DC Potassium Chloride (Klor-Con) 20 meq BID PO Last administered on 01/08/21at 08:16; Start 01/07/21 at 21:00; Stop 01/08/21 at 12:26; Status DC Furosemide (Lasix) 40 mg DAILY PO Last administered on 01/08/21at 08:16; Start 01/08/21 at 09:00; Stop 01/08/21 at 12:26; Status DC Potassium Chloride (Klor-Con) 20 meq 1X ONCE PO Last administered on 01/07/21at 11:07; Start 01/07/21 at 10:45; Stop 01/07/21 at 10:46; Status DC Bisacodyl (Dulcolax Supp) 10 mg PRN DAILY PRN IA CONSTIPATION Last administered on 01/08/21at 02:20; Start 01/08/21 at 02:15 Dobutamine HCl/ Dextrose 250 ml @ 17.43 mls/ hr CONT PRN IV SEE I/O RECORD Last administered on 01/08/21at 10:20; Start 01/08/21 at 10:00 Ceftriaxone Sodium (Rocephin) 1 gm Q24H IVP Last administered on 01/08/21at 11:06; Start 01/08/21 at 11:00; Stop 01/09/21 at 10:15; Status DC Heparin Sodium (Porcine) (Heparin Sodium) 5,000 unit Q12HR SQ Last administered on 01/09/21at 22:01; Start 01/08/21 at 13:00; Stop 01/10/21 at 05:35; Status DC Acetaminophen/ Hydrocodone Bitart (Lortab 5/325) 1 tab PRN Q4HRS PRN PO PAIN; Start 01/08/21 at 13:45; Status UNV Norepinephrine Bitartrate 8 mg/ Dextrose 258 ml @ 22.485 mls/ hr CONT PRN IV PER PROTOCOL Last administered on 01/09/21at 11:05; Start 01/08/21 at 19:00 Norepinephrine Bitartrate 8 mg/ Dextrose 258 ml @ 22.485 mls/ hr CONT PRN IV PER PROTOCOL; Start 01/08/21 at 19:00; Status UNV Fentanyl Citrate 30 ml @ 0 mls/hr CONT PRN IV SEE PROTOCOL Last administered on 01/11/21at 02:06; Start 01/08/21 at 19:00 Midazolam HCl 100 ml @ 1 mls/hr CONT PRN IV SEE PROTOCOL Last administered on 01/11/21at 03:51; Start 01/08/21 at 19:00 Propofol 100 ml @ 0.1 mls/hr CONT PRN IV PER PROTOCOL; Start 01/08/21 at 19:00 Chlorhexidine Gluconate (Peridex) 15 ml BID MM Last administered on 01/13/21at 20:35; Start 01/08/21 at 21:00 Glycerin/ Hypromellose/ Polyethylene (Artificial Tears) 1 drop PRN Q1HR PRN OU DRY EYE; Start 01/08/21 at 19:00 Dexmedetomidine HCl 400 mcg/ Sodium Chloride 100 ml @ 5.8 mls/hr CONT PRN IV PER PROTOCOL; Start 01/08/21 at 19:00 Sodium Chloride 500 ml @ 500 mls/hr 1X PRN PRN IV SEE COMMENTS; Start 01/08/21 at 19:00 Atropine Sulfate (ATROPINE 0.5mg SYRINGE) 0.5 mg PRN Q5MIN PRN IV SEE COMMENTS; Start 01/08/21 at 19:00 Ringer's Solution 1,000 ml @ 100 mls/hr Q10H IV Last administered on 01/08/21at 21:08; Start 01/08/21 at 20:15; Stop 01/10/21 at 08:42; Status DC Fentanyl Citrate (Fentanyl 2ml Vial) 100 mcg STK-MED ONCE .ROUTE ; Start 01/08/21 at 20:42; Stop 01/08/21 at 20:42; Status DC Piperacillin Sod/ Tazobactam Sod 2.25 gm/Sodium Chloride 50 ml @ 100 mls/hr Q6HRS IV Last administered on 01/11/21at 05:56; Start 01/09/21 at 12:00; Stop 01/11/21 at 12:38; Status DC Insulin Human Lispro (HumaLOG) 0-8 UNITS BG 400-49... Q6HRS SQ Last administered on 01/14/21at 06:20; Start 01/09/21 at 18:00 Heparin Sodium/ Dextrose 250 ml @ 10 mls/hr CONT PRN IV PER PROTOCOL Last administered on 01/13/21at 20:35; Start 01/10/21 at 05:30 Heparin Sodium (Porcine) (Heparin Sodium) 2,850 unit PRN Q6HRS PRN IV FOR UFH LEVEL LESS THAN 0.2 Last administered on 01/10/21at 13:08; Start 01/10/21 at 05:30 Info (Anti-Coagulation Monitoring By Pharmacy) 1 each PRN DAILY PRN MC PER PROTOCOL Last administered on 01/10/21at 10:00; Start 01/10/21 at 05:45 Furosemide (Lasix) 40 mg 1X ONCE IVP Last administered on 01/10/21at 09:15; Start 01/10/21 at 08:45; Stop 01/10/21 at 08:46; Status DC Aspirin (Aspirin Chewable) 81 mg DAILYWBKFT PO Last administered on 01/13/21at 09:08; Start 01/10/21 at 09:15 Linezolid (Zyvox) 600 mg BID PO Last administered on 01/13/21at 20:35; Start 01/10/21 at 16:00; Stop 01/14/21 at 09:21; Status DC Atropine Sulfate (ATROPINE 1mg SYRINGE) 1 mg STK-MED ONCE .ROUTE ; Start 01/05/21 at 16:07; Stop 01/10/21 at 16:08; Status DC Epinephrine HCl (EPINEPHrine SYRINGE) 2 mg STK-MED ONCE .ROUTE ; Start 01/05/21 at 16:07; Stop 01/10/21 at 16:08; Status DC Midazolam HCl (Versed) 5 mg STK-MED ONCE .ROUTE ; Start 01/05/21 at 16:07; Stop 01/10/21 at 16:08; Status DC Sodium Bicarbonate (Sodium Bicarb Adult 8.4% Syr) 100 meq STK-MED ONCE .ROUTE ; Start 01/05/21 at 16:07; Stop 01/10/21 at 16:08; Status DC Piperacillin Sod/ Tazobactam Sod 2.25 gm/Sodium Chloride 50 ml @ 100 mls/hr Q8HRS IV Last administered on 01/14/21at 06:17; Start 01/11/21 at 14:00 Potassium Bicarbonate (Potassium Effervescent Tablet) 40 meq 1X ONCE PO ; Start 01/11/21 at 09:00; Stop 01/11/21 at 13:05; Status DC Potassium Bicarbonate (Potassium Effervescent Tablet) 40 meq 1X ONCE PO Last administered on 01/11/21at 18:12; Start 01/11/21 at 18:00; Stop 01/11/21 at 18:01; Status DC Potassium Bicarbonate (Potassium Effervescent Tablet) 20 meq 1X ONCE PO Last administered on 01/12/21at 14:06; Start 01/12/21 at 13:00; Stop 01/12/21 at 13:01; Status DC Insulin Human Lispro (HumaLOG) 6 units Q6HRS SQ Last administered on 01/13/21at 05:38; Start 01/12/21 at 13:00; Stop 01/13/21 at 10:42; Status DC Insulin Human Lispro (HumaLOG) 10 units Q6HRS SQ Last administered on 01/14/21at 06:00; Start 01/13/21 at 12:00 Potassium Bicarbonate (Potassium Effervescent Tablet) 20 meq 1X ONCE PO Last administered on 01/13/21at 12:01; Start 01/13/21 at 11:00; Stop 01/13/21 at 11:01; Status DC Active Scripts Active Cephalexin 500 Mg Tablet 1 Tab PO TID 7 Days Thera-M Tablet (Multivits,Ca,Minerals/Iron/Fa) 1 Each Tablet 1 Tab PO DAILY Vitamin C (Ascorbic Acid) 500 Mg Tablet 500 Mg PO DAILY Lantus (Insulin Glargine,Hum.rec.anlog) 100 Unit/1 Ml Vial 12 Unit SQ QHS Metolazone 2.5 Mg Tablet 2.5 Mg PO QMWF Klor-Con M20 (Potassium Chloride) 20 Meq Tab.er.prt 20 Meq PO BID Toprol XL (Metoprolol Succinate) 50 Mg Tab.er.24h 50 Mg PO DAILY Furosemide 40 Mg Tablet 40 Mg PO BID Amlodipine Besylate 5 Mg Tablet 5 Mg PO DAILY Atorvastatin Calcium 40 Mg Tablet 40 Mg PO QHS Admelog (Insulin Lispro) 100 Unit/1 Ml Vial 6 Units SQ TIDAC hold if blood sugar less than 90 before a meal Nyamyc (Nystatin) 15 Gm Powder 1 Renee TP BID Stool Soft-Stimulant Lax Tab (Sennosides/Docusate Sodium) 1 Each Tablet 2 Tab PO DAILY Feosol (Ferrous Sulfate) 325 Mg Tablet 325 Mg PO QODAY Synthroid (Levothyroxine Sodium) 150 Mcg Tablet 150 Mcg PO DAILY06 Allopurinol 100 Mg Tablet 100 Mg PO DAILY Paroxetine Hcl 20 Mg Tablet 20 Mg PO DAILY Reported Aspirin 81 Mg Tab.chew 81 Mg PO HS Tylenol (Acetaminophen) 325 Mg Tablet 650 Mg PO PRN Q4HRS Vitals/I & O Vital Sign - Last 24 Hours 01/13/21 01/13/21 01/13/21 01/13/21 11:00 11:37 12:00 12:00 Temp 98.3 98.3 Pulse 66 64 Resp 12 12 B/P (MAP) 100/52 115/60 Pulse Ox 96 96 97 O2 Delivery Ventilator Ventilator Mechanical Ventilator Ventilator 01/13/21 01/13/21 01/13/21 01/13/21 13:00 13:15 14:00 15:00 Pulse 66 68 68 Resp 12 12 12 B/P (MAP) 121/66 126/72 106/63 Pulse Ox 96 96 96 96 O2 Delivery Ventilator Ventilator Ventilator Ventilator 01/13/21 01/13/21 01/13/218/21 16:00 16:00 16:02 17:03 Temp 98.8 98.8 98.8 98.8 Pulse 68 64 Resp 12 12 B/P (MAP) 107/63 112/54 Pulse Ox 97 96 97 O2 Delivery Mechanical Ventilator Ventilator Ventilator Ventilator 01/13/21 01/13/21 01/13/21 01/13/21 17:35 18:00 19:00 19:19 Pulse 71 69 Resp 12 12 B/P (MAP) 109/54 108/51 Pulse Ox 96 97 96 98 O2 Delivery Ventilator Ventilator Ventilator Ventilator 01/13/21 01/13/21 01/13/21 01/13/21 20:00 20:00 21:00 21:15 Temp 98.7 98.7 Pulse 67 67 Resp 12 12 B/P (MAP) 106/55 108/61 Pulse Ox 96 96 96 O2 Delivery Ventilator Mechanical Ventilator Ventilator Ventilator 01/13/21 01/13/21 01/14/21 01/14/21 22:00 23:00 00:00 00:00 Temp 98.7 98.7 Pulse 66 66 69 Resp 12 12 12 B/P (MAP) 111/57 105/53 113/61 Pulse Ox 96 96 96 O2 Delivery Ventilator Ventilator Ventilator Mechanical Ventilator 01/14/21 01/14/21 01/14/21 01/14/21 00:03 01:00 02:00 02:45 Pulse 70 67 Resp 12 12 B/P (MAP) 107/60 111/59 Pulse Ox 96 96 96 96 O2 Delivery Ventilator Ventilator Ventilator Ventilator 01/14/21 01/14/21 01/14/21 01/14/21 03:00 04:00 04:00 05:00 Temp 98.3 98.3 Pulse 71 68 67 Resp 12 12 12 B/P (MAP) 108/58 112/56 109/54 Pulse Ox 96 96 96 O2 Delivery Ventilator Mechanical Ventilator Ventilator Ventilator 01/14/21 01/14/21 01/14/21 01/14/21 05:10 06:00 07:19 08:00 Temp 98.9 98.9 Pulse 69 74 70 Resp 12 12 12 B/P (MAP) 108/55 113/61 116/62 Pulse Ox 97 96 96 96 O2 Delivery Ventilator Ventilator Ventilator Ventilator 01/14/21 01/14/21 08:22 10:00 Pulse Ox 94 95 O2 Delivery Ventilator Ventilator Intake and Output 01/13/21 01/13/21 01/14/21 15:06 23:06 07:06 Intake Total 420 ml 1176 ml 260 ml Output Total 195 ml 130 ml 105 ml Balance 225 ml 1046 ml 155 ml Justifications for Admission Other Justification TERE ALLISON MD Jan 14, 2021 10:14
[2021-01-14] MEDS ORDERED: POTASSIUM CHLORIDE 20 MEQ TABLET.ER. PO ONE (10:15)
--- NOTE | 2021-01-14 10:21 | PDOC ---
Renal-Progress Notes Subjective Notes Notes ON THE VENT History of Present Illness Hx of present illness UNRESPONSIVE OFF SEDATION Vitals Vitals Vital Signs Date Time Temp Pulse Resp B/P (MAP) Pulse Ox O2 Delivery O2 Flow Rate FiO2 01/14/21 10:15 73 12 125/67 96 Ventilator 01/14/21 07:19 98.9 98.9 Weight Weight [ ] I.O. Intake and Output Intake and Output 01/14/21 07:00 Intake Total 1856 ml Output Total 430 ml Balance 1426 ml IV Total 316 ml Tube Feeding 1120 ml Other 420 ml Output Urine Total 430 ml Labs Labs Laboratory Tests Test 01/13/21 11:30 01/13/21 11:51 01/13/21 18:08 01/13/21 19:40 Heparin Anti-Xa Act, Unfractionated 0.58 IU/mL (0.30-0.70) 0.36 IU/mL (0.30-0.70) Glucose (Fingerstick) 285 mg/dL (70-99) 257 mg/dL (70-99) Test 01/13/21 23:56 01/14/21 03:05 01/14/21 06:19 01/14/21 08:00 Glucose (Fingerstick) 276 mg/dL (70-99) 246 mg/dL (70-99) White Blood Count 11.5 x10^3/uL (4.0-11.0) Red Blood Count 4.05 x10^6/uL (3.50-5.40) Hemoglobin 10.7 g/dL (12.0-15.5) Hematocrit 33.6 % (36.0-47.0) Mean Corpuscular Volume 83 fL (79-100) Mean Corpuscular Hemoglobin 26 pg (25-35) Mean Corpuscular Hemoglobin Concent 32 g/dL (31-37) Red Cell Distribution Width 14.8 % (11.5-14.5) Platelet Count 178 x10^3/uL (140-400) Neutrophils (%) (Auto) 79 % (31-73) Lymphocytes (%) (Auto) 10 % (24-48) Monocytes (%) (Auto) 9 % (0-9) Eosinophils (%) (Auto) 1 % (0-3) Basophils (%) (Auto) 0 % (0-3) Neutrophils # (Auto) 9.1 x10^3/uL (1.8-7.7) Lymphocytes # (Auto) 1.2 x10^3/uL (1.0-4.8) Monocytes # (Auto) 1.0 x10^3/uL (0.0-1.1) Eosinophils # (Auto) 0.1 x10^3/uL (0.0-0.7) Basophils # (Auto) 0.0 x10^3/uL (0.0-0.2) Heparin Anti-Xa Act, Unfractionated 0.46 IU/mL (0.30-0.70) Sodium Level 143 mmol/L (136-145) Potassium Level 3.4 mmol/L (3.5-5.1) Chloride Level 102 mmol/L (98-107) Carbon Dioxide Level 32 mmol/L (21-32) Anion Gap 9 (6-14) Blood Urea Nitrogen 111 mg/dL (7-20) Creatinine 4.3 mg/dL (0.6-1.0) Estimated GFR (Cockcroft-Gault) 9.9 Glucose Level 234 mg/dL (70-99) Calcium Level 8.2 mg/dL (8.5-10.1) O2 Saturation 95 % (92-99) Arterial Blood pH 7.41 (7.35-7.45) Arterial Blood pCO2 at Patient Temp 47 mmHg (35-46) Arterial Blood pO2 at Patient Temp 79 mmHg (65-108) Arterial Blood HCO3 29 mmol/L (21-28) Arterial Blood Base Excess 4 mmol/L (-3-3) FiO2 40/vent Micro Micro Microbiology 01/05/21 Blood Culture - Final, Complete NO GROWTH AFTER 5 DAYS 01/05/21 Urine Culture - Final, Complete 01/05/21 Antimicrobic Susceptibility - Final, Complete Review of Systems Constitutional: yes: unresponsive Physical Exam General Appearance: no apparent distress Skin: warm Respiratory: ventilator (Mode:A/C), decreased breath sounds Heart: S1S2 Abdomen: soft Extremities: pulses present, no edema, atrophy Neurology: other (ON THE VENT, NOT SEDATED) Musculoskeletal: Osteoarthritis Assessment Assessment IMP [id number] WITH CR OF 4.3-OLIGURIC ACUTE RESP FAILURE S/P CODE BLUE WITH ASYSTOLE URINARY TRACT INFECTION LEUCOCYTOSIS CM WITH EF OF 25% DM II ? ANOXIC BRAIN INJURY PLAN PT IS NOT DOING WELL HAS ANOXIC BRAIN INJURY PT WAS APPARENTLY ON HOSPICE PRIOR TO THIS ACUTE EVENT SUGGEST COMFORT CARE WILL NOT PLAN FOR ANY DIALYSIS ATTEMPTED TO CONTACT SON BUT NO ANSWER WILL FOLLOW TIFFANY SIDDIQUI MD Jan 14, 2021 10:21
[2021-01-14] MEDS: ALLOPURINOL 100 MG TABLET. PO SCH (11:23)
[2021-01-14] MEDS: LACTOBACILLUS RHAMNOSUS GG 1 CAPSULE. PO SCH ×2 (11:23→21:01)
[2021-01-14] MEDS: CHLORHEXIDINE 0.12% 15 ML MOUTHWASH. MM SCH ×2 (11:23→21:01)
[2021-01-14] MEDS: ASPIRIN CHEWABLE 81 MG TABLET. PO SCH (11:23)
--- NOTE | 2021-01-14 11:56 | PDOC ---
PULMONARY PROGRESS NOTES DATE: 01/14/21 TIME: 11:54 Subjective on vent peep 5 fio2 40%, off sedation since Wednesday. Withdraws to pain. Triggers the ventilator. Vitals Vital Signs Date Time Temp Pulse Resp B/P (MAP) Pulse Ox O2 Delivery O2 Flow Rate FiO2 01/14/21 11:41 95 Ventilator 01/14/21 11:06 98.9 73 12 114/64 98.9 Comments on vent sedate ros unable to obtain HEENT: Other (nc at perrl orally intubated nose clear neck no lad no thyromegaly) Lungs: Clear Cardiovascular: S1, S2 Abdomen: Soft, Non-tender Extremities: Other (Status post left BKA) Skin: Warm Labs Laboratory Tests Test 01/12/21 18:41 01/12/21 23:32 01/13/21 04:20 01/13/21 07:40 Glucose (Fingerstick) 308 mg/dL (70-99) 228 mg/dL (70-99) White Blood Count 11.3 x10^3/uL (4.0-11.0) Red Blood Count 3.89 x10^6/uL (3.50-5.40) Hemoglobin 10.5 g/dL (12.0-15.5) Hematocrit 32.7 % (36.0-47.0) Mean Corpuscular Volume 84 fL (79-100) Mean Corpuscular Hemoglobin 27 pg (25-35) Mean Corpuscular Hemoglobin Concent 32 g/dL (31-37) Red Cell Distribution Width 14.5 % (11.5-14.5) Platelet Count 185 x10^3/uL (140-400) Neutrophils (%) (Auto) 81 % (31-73) Lymphocytes (%) (Auto) 9 % (24-48) Monocytes (%) (Auto) 9 % (0-9) Eosinophils (%) (Auto) 1 % (0-3) Basophils (%) (Auto) 0 % (0-3) Neutrophils # (Auto) 9.1 x10^3/uL (1.8-7.7) Lymphocytes # (Auto) 1.0 x10^3/uL (1.0-4.8) Monocytes # (Auto) 1.0 x10^3/uL (0.0-1.1) Eosinophils # (Auto) 0.1 x10^3/uL (0.0-0.7) Basophils # (Auto) 0.0 x10^3/uL (0.0-0.2) Heparin Anti-Xa Act, Unfractionated 0.56 IU/mL (0.30-0.70) Sodium Level 143 mmol/L (136-145) Potassium Level 3.3 mmol/L (3.5-5.1) Chloride Level 104 mmol/L (98-107) Carbon Dioxide Level 31 mmol/L (21-32) Anion Gap 8 (6-14) Blood Urea Nitrogen 104 mg/dL (7-20) Creatinine 3.9 mg/dL (0.6-1.0) Estimated GFR (Cockcroft-Gault) 11.1 Glucose Level 213 mg/dL (70-99) Calcium Level 8.3 mg/dL (8.5-10.1) Magnesium Level 2.7 mg/dL (1.8-2.4) O2 Saturation 95 % (92-99) Arterial Blood pH 7.42 (7.35-7.45) Arterial Blood pCO2 at Patient Temp 50 mmHg (35-46) Arterial Blood pO2 at Patient Temp 77 mmHg (65-108) Arterial Blood HCO3 31 mmol/L (21-28) Arterial Blood Base Excess 6 mmol/L (-3-3) FiO2 40 Test 01/13/21 11:30 01/13/21 11:51 01/13/21 18:08 01/13/21 19:40 Heparin Anti-Xa Act, Unfractionated 0.58 IU/mL (0.30-0.70) 0.36 IU/mL (0.30-0.70) Glucose (Fingerstick) 285 mg/dL (70-99) 257 mg/dL (70-99) Test 01/13/21 23:56 01/14/21 03:05 01/14/21 06:19 01/14/21 08:00 Glucose (Fingerstick) 276 mg/dL (70-99) 246 mg/dL (70-99) White Blood Count 11.5 x10^3/uL (4.0-11.0) Red Blood Count 4.05 x10^6/uL (3.50-5.40) Hemoglobin 10.7 g/dL (12.0-15.5) Hematocrit 33.6 % (36.0-47.0) Mean Corpuscular Volume 83 fL (79-100) Mean Corpuscular Hemoglobin 26 pg (25-35) Mean Corpuscular Hemoglobin Concent 32 g/dL (31-37) Red Cell Distribution Width 14.8 % (11.5-14.5) Platelet Count 178 x10^3/uL (140-400) Neutrophils (%) (Auto) 79 % (31-73) Lymphocytes (%) (Auto) 10 % (24-48) Monocytes (%) (Auto) 9 % (0-9) Eosinophils (%) (Auto) 1 % (0-3) Basophils (%) (Auto) 0 % (0-3) Neutrophils # (Auto) 9.1 x10^3/uL (1.8-7.7) Lymphocytes # (Auto) 1.2 x10^3/uL (1.0-4.8) Monocytes # (Auto) 1.0 x10^3/uL (0.0-1.1) Eosinophils # (Auto) 0.1 x10^3/uL (0.0-0.7) Basophils # (Auto) 0.0 x10^3/uL (0.0-0.2) Heparin Anti-Xa Act, Unfractionated 0.46 IU/mL (0.30-0.70) Sodium Level 143 mmol/L (136-145) Potassium Level 3.4 mmol/L (3.5-5.1) Chloride Level 102 mmol/L (98-107) Carbon Dioxide Level 32 mmol/L (21-32) Anion Gap 9 (6-14) Blood Urea Nitrogen 111 mg/dL (7-20) Creatinine 4.3 mg/dL (0.6-1.0) Estimated GFR (Cockcroft-Gault) 9.9 Glucose Level 234 mg/dL (70-99) Calcium Level 8.2 mg/dL (8.5-10.1) O2 Saturation 95 % (92-99) Arterial Blood pH 7.41 (7.35-7.45) Arterial Blood pCO2 at Patient Temp 47 mmHg (35-46) Arterial Blood pO2 at Patient Temp 79 mmHg (65-108) Arterial Blood HCO3 29 mmol/L (21-28) Arterial Blood Base Excess 4 mmol/L (-3-3) FiO2 40/vent Test 01/14/21 11:29 Glucose (Fingerstick) 205 mg/dL (70-99) Laboratory Tests Test 01/13/21 18:08 01/13/21 19:40 01/13/21 23:56 01/14/21 03:05 Glucose (Fingerstick) 257 mg/dL (70-99) 276 mg/dL (70-99) Heparin Anti-Xa Act, Unfractionated 0.36 IU/mL (0.30-0.70) 0.46 IU/mL (0.30-0.70) White Blood Count 11.5 x10^3/uL (4.0-11.0) Red Blood Count 4.05 x10^6/uL (3.50-5.40) Hemoglobin 10.7 g/dL (12.0-15.5) Hematocrit 33.6 % (36.0-47.0) Mean Corpuscular Volume 83 fL (79-100) Mean Corpuscular Hemoglobin 26 pg (25-35) Mean Corpuscular Hemoglobin Concent 32 g/dL (31-37) Red Cell Distribution Width 14.8 % (11.5-14.5) Platelet Count 178 x10^3/uL (140-400) Neutrophils (%) (Auto) 79 % (31-73) Lymphocytes (%) (Auto) 10 % (24-48) Monocytes (%) (Auto) 9 % (0-9) Eosinophils (%) (Auto) 1 % (0-3) Basophils (%) (Auto) 0 % (0-3) Neutrophils # (Auto) 9.1 x10^3/uL (1.8-7.7) Lymphocytes # (Auto) 1.2 x10^3/uL (1.0-4.8) Monocytes # (Auto) 1.0 x10^3/uL (0.0-1.1) Eosinophils # (Auto) 0.1 x10^3/uL (0.0-0.7) Basophils # (Auto) 0.0 x10^3/uL (0.0-0.2) Sodium Level 143 mmol/L (136-145) Potassium Level 3.4 mmol/L (3.5-5.1) Chloride Level 102 mmol/L (98-107) Carbon Dioxide Level 32 mmol/L (21-32) Anion Gap 9 (6-14) Blood Urea Nitrogen 111 mg/dL (7-20) Creatinine 4.3 mg/dL (0.6-1.0) Estimated GFR (Cockcroft-Gault) 9.9 Glucose Level 234 mg/dL (70-99) Calcium Level 8.2 mg/dL (8.5-10.1) Test 01/14/21 06:19 01/14/21 08:00 01/14/21 11:29 Glucose (Fingerstick) 246 mg/dL (70-99) 205 mg/dL (70-99) O2 Saturation 95 % (92-99) Arterial Blood pH 7.41 (7.35-7.45) Arterial Blood pCO2 at Patient Temp 47 mmHg (35-46) Arterial Blood pO2 at Patient Temp 79 mmHg (65-108) Arterial Blood HCO3 29 mmol/L (21-28) Arterial Blood Base Excess 4 mmol/L (-3-3) FiO2 40/vent Medications Active Scripts Medications Dose Route/Sig Max Daily Dose Days Date Category Dose Instructions Cephalexin 500 Mg Tablet 1 Tab PO TID 7 07/05/20 Rx Thera-M Tablet (Multivits,Ca,Minerals/Iron/Fa) 1 Each Tablet 1 Tab PO DAILY 07/05/20 Rx Vitamin C (Ascorbic Acid) 500 Mg Tablet 500 Mg PO DAILY 07/05/20 Rx Lantus (Insulin Glargine,Hum.rec.anlog) 100 Unit/1 Ml Vial 12 Unit SQ QHS 07/05/20 Rx Metolazone 2.5 Mg Tablet 2.5 Mg PO QMWF 07/05/20 Rx Klor-Con M20 (Potassium Chloride) 20 Meq Tab.er.prt 20 Meq PO BID 07/05/20 Rx Toprol XL (Metoprolol Succinate) 50 Mg Tab.er.24h 50 Mg PO DAILY 07/05/20 Rx Furosemide 40 Mg Tablet 40 Mg PO BID 06/12/20 Rx Amlodipine Besylate 5 Mg Tablet 5 Mg PO DAILY 06/12/20 Rx Atorvastatin Calcium 40 Mg Tablet 40 Mg PO QHS 06/12/20 Rx Admelog (Insulin Lispro) 100 Unit/1 Ml Vial 6 Units SQ TIDAC 06/04/20 Rx hold if blood sugar less than 90 before a meal Nyamyc (Nystatin) 15 Gm Powder 1 Renee TP BID 05/12/20 Rx Stool Soft-Stimulant Lax Tab (Sennosides/Docusate Sodium) 1 Each Tablet 2 Tab PO DAILY 05/12/20 Rx Feosol (Ferrous Sulfate) 325 Mg Tablet 325 Mg PO QODAY 05/12/20 Rx Aspirin 81 Mg Tab.chew 81 Mg PO HS 05/03/20 Reported Synthroid (Levothyroxine Sodium) 150 Mcg Tablet 150 Mcg PO DAILY06 05/21/19 Rx Allopurinol 100 Mg Tablet 100 Mg PO DAILY 05/21/19 Rx Paroxetine Hcl 20 Mg Tablet 20 Mg PO DAILY 05/21/19 Rx Tylenol (Acetaminophen) 325 Mg Tablet 650 Mg PO PRN Q4HRS 05/19/13 Reported Comments cxr reviewed Improving aeration of the lungs with decrease in size of now small right pleural effusion with adjacent compressive atelectasis versus infiltrate. Similar to marginally improved degree of moderate pulmonary vascular congestion. Impression . IMPRESSION: 1. Acute on chronic hypoxemic hypercapnic respiratory failure. 2. Acute on chronic diastolic heart failure. 3. Peripheral arterial disease, status post left knee amputation. 4. Obstructive sleep apnea. 5. Chest pain per Cardiology./Cardiomyopathy ejection fraction 25% 6. Leukocytosis related to urinary tract infection, Escherichia coli. Infectious Disease has been following. 7. Hypothyroidism. 8. Type 2 diabetes. 9. Paroxysmal atrial fibrillation. 10. Status post CODE BLUE 11. Acute renal failure Plan . Updated 01/14 Continue vent support setting reviewed, off sedation withdraws to pain only. Cannot exclude the possibility of anoxic brain injury. Post sedation enc ephalopathy would be another etiology in the setting of renal failure and delayed clearance of medications. Family is planning to withdraw care in the next 24 hours. We will continue to monitor mental status. elevate hob abx per id pepcid hep for prophylaxis Overall prognosis is poor DNR discussed w rn Updated 01/13 Continue vent support setting reviewed, off sedation sbt when alert. So far not responsive. She does trigger the vent. Cannot exclude the possibility of anoxic brain injury. Post sedation encephalopathy would be another etiology in the setting of renal failure and delayed clearance of medications elevate hob abx per id pepcid hep for prophylaxis Overall prognosis is poor DNR discussed w rn I have discussed with patient's son and father. I have explained to them patient's clinical situation. I have also discussed with nephrology Dr. Loco. Neurology consultation has been obtained. We will continue to monitor for her neurological improvement while she remains off sedation. Decision to pursue with dialysis and possible cardiac cath will depend on her neurological recovery. Updated 01/12 Continue vent support setting reviewed, off sedation sbt when alert elevate hob abx per id pepcid hep for prophylaxis Overall prognosis is poor DNR discussed w rn Updated 01/11 Continue vent support setting reviewed, decrease sedation sbt when alert elevate hob abx per id pepcid hep for prophylaxis Overall prognosis is poor Patient is currently DNR discuss w rn Updated 01/10 Continue current support Discussed case with son yesterday Discussed case with Dr. Rollins yesterday Overall prognosis is poor Patient is currently DNR Updated 01/09 Case discussed with son at the bedside who is the DPOA, I informed him that patient had multiorgan failure, I recommend withdrawing care and allowing natural Patient has advanced directive, did not want to be placed on mechanical support She was on hospice prior to this admission We will continue current support, awaiting family decision for possible comfort care Case discussed with RN and RT Case discussed with Dr. Lara Total cumulative critical care time of 30 minutes with no overlap BILL BHANDARI MD Jan 14, 2021 11:56
--- NOTE | 2021-01-14 12:46 | PDOC ---
RANDY TRIVEDI CLIENT CARE REPRESENTATIVE 01/14/21 1246: CARDIO Progress Notes Date and Time Date of Service 01/14/2021 Time of Evaluation 1215 Subjective Subjective: Other (intubated ) Vitals Vitals Vital Signs Date Time Temp Pulse Resp B/P (MAP) Pulse Ox O2 Delivery O2 Flow Rate FiO2 01/14/21 12:11 76 12 110/60 95 Ventilator 01/14/21 11:06 98.9 98.9 Weight Weight [ ] Input and Output Intake and Output Intake and Output 01/14/21 07:00 Intake Total 1856 ml Output Total 430 ml Balance 1426 ml IV Total 316 ml Tube Feeding 1120 ml Other 420 ml Output Urine Total 430 ml Laboratory Labs Laboratory Tests Test 01/13/21 18:08 01/13/21 19:40 01/13/21 23:56 01/14/21 03:05 Glucose (Fingerstick) 257 mg/dL (70-99) 276 mg/dL (70-99) Heparin Anti-Xa Act, Unfractionated 0.36 IU/mL (0.30-0.70) 0.46 IU/mL (0.30-0.70) White Blood Count 11.5 x10^3/uL (4.0-11.0) Red Blood Count 4.05 x10^6/uL (3.50-5.40) Hemoglobin 10.7 g/dL (12.0-15.5) Hematocrit 33.6 % (36.0-47.0) Mean Corpuscular Volume 83 fL (79-100) Mean Corpuscular Hemoglobin 26 pg (25-35) Mean Corpuscular Hemoglobin Concent 32 g/dL (31-37) Red Cell Distribution Width 14.8 % (11.5-14.5) Platelet Count 178 x10^3/uL (140-400) Neutrophils (%) (Auto) 79 % (31-73) Lymphocytes (%) (Auto) 10 % (24-48) Monocytes (%) (Auto) 9 % (0-9) Eosinophils (%) (Auto) 1 % (0-3) Basophils (%) (Auto) 0 % (0-3) Neutrophils # (Auto) 9.1 x10^3/uL (1.8-7.7) Lymphocytes # (Auto) 1.2 x10^3/uL (1.0-4.8) Monocytes # (Auto) 1.0 x10^3/uL (0.0-1.1) Eosinophils # (Auto) 0.1 x10^3/uL (0.0-0.7) Basophils # (Auto) 0.0 x10^3/uL (0.0-0.2) Sodium Level 143 mmol/L (136-145) Potassium Level 3.4 mmol/L (3.5-5.1) Chloride Level 102 mmol/L (98-107) Carbon Dioxide Level 32 mmol/L (21-32) Anion Gap 9 (6-14) Blood Urea Nitrogen 111 mg/dL (7-20) Creatinine 4.3 mg/dL (0.6-1.0) Estimated GFR (Cockcroft-Gault) 9.9 Glucose Level 234 mg/dL (70-99) Calcium Level 8.2 mg/dL (8.5-10.1) Test 01/14/21 06:19 01/14/21 08:00 01/14/21 11:29 Glucose (Fingerstick) 246 mg/dL (70-99) 205 mg/dL (70-99) O2 Saturation 95 % (92-99) Arterial Blood pH 7.41 (7.35-7.45) Arterial Blood pCO2 at Patient Temp 47 mmHg (35-46) Arterial Blood pO2 at Patient Temp 79 mmHg (65-108) Arterial Blood HCO3 29 mmol/L (21-28) Arterial Blood Base Excess 4 mmol/L (-3-3) FiO2 40/vent Microbiology Micro Microbiology 01/05/21 Blood Culture - Final, Complete NO GROWTH AFTER 5 DAYS 01/05/21 Urine Culture - Final, Complete 01/05/21 Antimicrobic Susceptibility - Final, Complete Review of Systems Constitutional: yes: unresponsive Physical Exam HEENT: Neck Supple W Full Motion Chest: Symmetric LUNGS: Other (MV) Heart: RRR (SR) Abdomen: Soft N/T, Other (obese ) Extremities: Other (left BKA) Neurology: other (ON THE VENT, NOT SEDATED) Assessment Assessment 1. Acute on chronic systolic CHF; echo 10/26 with preserved LV systolic function. Echo this morning with LVEF 25% with pattern suggestive Takotsubo's cardiomyopathy. S/p IV diuresis. 2. Acute respiratory failure secondary to CHF: intubated with vent 3. PEA arrest; s/p intubation. No VT/VF 4. NSTEMI: multifactorial with multiorgan failure 5. CAD; recent cath in May 2020 showed 60% stenosis involving LAD with negative IFR and 100% [employer] involving moderate caliber obtuse marginal branch of left circumflex artery with left to left collaterals. 6. NILDA on CKD; marginal UOP. off dobutamine 7. Leukocytosis, UTI. cultures with E coli. ID following 8. Hypertension: presently hypotensive requiring pressor support 9. Hyperlipidemia: statin 10. Hypothyroidism: on levothyroxine 11. Diabetes, II 12. PAD s/p left BKA 13. RLE cellulitis; antibiotics as per IM 14. PAFIB; maintaining SR 15. Anoxic encephalopathy: off sedation since Wednesday Recommendations Needs fluid offloading. Lasix. Family does not want dialysis. Continue heparin drip. Awaiting family in regards to goals of care. poor prognosis, possible comfort care. On Hospice prior to admission. Avoid nephrotoxins, follow renal recs Secondary prevention; ASA, statin, BB Awaiting family for decision for comfort care. Presently DNR Justicifation of Admission Dx: Justifications for Admission: Justification of Admission Dx: N/A JAY SMYTH MD 01/14/21 1447: CARDIO Progress Notes Assessment Assessment Patient seen and examined. Agree with MAPPING EDITOR's assessment and plan. Acute respiratory failure secondary to acute on chronic systolic heart failure, remains intubated. Continue vent management per pulmonary team. Telemetry did not show any significant arrhythmias. Non-STEMI multifactorial, cannot rule out significant CAD She is a poor candidate for cardiac catheterization at this time -continue conservative management Patient presently DNR. Family considering palliative care. RANDY TRIVEDI APRN Jan 14, 2021 12:46 JAY SMYTH MD Jan 14, 2021 14:47
--- NOTE | 2021-01-14 14:57 | NUR ---
SS following up with discharge planning. SS reviewed pt chart and discussed with pt RN. Pt is currently on the vent at 40%. COVID19 negative. Pt on IV Zosyn. No sedation. DNR. Pt not responsive. Family planning to withdraw care tomorrow. SS will continue to follow for discharge planning.
[2021-01-14] MEDS: HEPARIN 25,000UTS/250ML PREMIX 250 ML IV PRN (15:25)
[2021-01-14] MEDS: FAMOTIDINE 20 MG TABLET. PO SCH (21:01)
[2021-01-14] MEDS: ATORVASTATIN CALCIUM 40 MG TABLET. PO SCH (21:01)
[2021-01-14] MEDS: SENNOSIDES/DOCUSATE 8.6/50MG TABLET. PO SCH (21:01)
[2021-01-15] VITALS (12 sets, daily range): BP systolic 94–134; BP diastolic 55–72
[2021-01-15] MEDS: INSULIN LISPRO 300 UNITS/3 ML VIAL. SQ SCH ×4 (00:08→05:35)
[2021-01-15] MEDS: LEVOTHYROXINE 150 MCG TABLET PO SCH (05:30)
[2021-01-15] MEDS: PIPERACILLIN/TAZOBACTAM 2.25 GM in IV NORMAL SALINE 50ML 50 ML IV SCH (05:30)
[2021-01-15] MEDS: HEPARIN 25,000UTS/250ML PREMIX 250 ML IV PRN (05:40)
[2021-01-15 05:57] LABS: BASO # 0.1 x10^3/uL (0.0-0.2); BASO % 0 % (0-3); EOS # 0.1 x10^3/uL (0.0-0.7); EOS % 1 % (0-3); HEMATOCRIT 37.3 % (36.0-47.0); HEMOGLOBIN 11.7 g/dL (12.0-15.5); LYMPH # 1.8 x10^3/uL (1.0-4.8); LYMPH % 12 % (24-48); MEAN CORPUSCULAR HEMOGLOBIN 26 pg (25-35); MEAN CORPUSCULAR HGB CONC 31 g/dL (31-37); MEAN CORPUSCULAR VOLUME 84 fL (79-100); MONO # 1.4 x10^3/uL (0.0-1.1); MONO % 9 % (0-9); NEUT # 12.2 x10^3/uL (1.8-7.7); NEUT % 78 % (31-73); PLATELET COUNT 209 x10^3/uL (140-400); RED BLOOD COUNT 4.45 x10^6/uL (3.50-5.40); RED CELL DISTRIBUTION WIDTH 14.6 % (11.5-14.5); WHITE BLOOD COUNT 15.6 x10^3/uL (4.0-11.0)
[2021-01-15 06:23] LABS: CALCIUM 8.4 mg/dL (8.5-10.1); CREATININE 4.7 mg/dL (0.6-1.0); POTASSIUM 3.5 mmol/L (3.5-5.1)
--- NOTE | 2021-01-15 08:23 | PDOC ---
PULMONARY PROGRESS NOTES DATE: 01/15/21 TIME: 08:22 Subjective on vent peep 5 fio2 40%, off sedation since Wednesday. Withdraws to pain. Triggers the ventilator. Vitals Vital Signs Date Time Temp Pulse Resp B/P (MAP) Pulse Ox O2 Delivery O2 Flow Rate FiO2 01/15/21 07:09 96 Ventilator 01/15/21 06:00 98.9 87 12 94/72 98.9 Comments on vent sedate ros unable to obtain HEENT: Other (nc at perrl orally intubated nose clear neck no lad no thyromegaly) Lungs: Clear Cardiovascular: S1, S2 Abdomen: Soft, Non-tender Extremities: Other (Status post left BKA) Skin: Warm Labs Laboratory Tests Test 01/13/21 11:30 01/13/21 11:51 01/13/21 18:08 01/13/21 19:40 Heparin Anti-Xa Act, Unfractionated 0.58 IU/mL (0.30-0.70) 0.36 IU/mL (0.30-0.70) Glucose (Fingerstick) 285 mg/dL (70-99) 257 mg/dL (70-99) Test 01/13/21 23:56 01/14/21 03:05 01/14/21 06:19 01/14/21 08:00 Glucose (Fingerstick) 276 mg/dL (70-99) 246 mg/dL (70-99) White Blood Count 11.5 x10^3/uL (4.0-11.0) Red Blood Count 4.05 x10^6/uL (3.50-5.40) Hemoglobin 10.7 g/dL (12.0-15.5) Hematocrit 33.6 % (36.0-47.0) Mean Corpuscular Volume 83 fL (79-100) Mean Corpuscular Hemoglobin 26 pg (25-35) Mean Corpuscular Hemoglobin Concent 32 g/dL (31-37) Red Cell Distribution Width 14.8 % (11.5-14.5) Platelet Count 178 x10^3/uL (140-400) Neutrophils (%) (Auto) 79 % (31-73) Lymphocytes (%) (Auto) 10 % (24-48) Monocytes (%) (Auto) 9 % (0-9) Eosinophils (%) (Auto) 1 % (0-3) Basophils (%) (Auto) 0 % (0-3) Neutrophils # (Auto) 9.1 x10^3/uL (1.8-7.7) Lymphocytes # (Auto) 1.2 x10^3/uL (1.0-4.8) Monocytes # (Auto) 1.0 x10^3/uL (0.0-1.1) Eosinophils # (Auto) 0.1 x10^3/uL (0.0-0.7) Basophils # (Auto) 0.0 x10^3/uL (0.0-0.2) Heparin Anti-Xa Act, Unfractionated 0.46 IU/mL (0.30-0.70) Sodium Level 143 mmol/L (136-145) Potassium Level 3.4 mmol/L (3.5-5.1) Chloride Level 102 mmol/L (98-107) Carbon Dioxide Level 32 mmol/L (21-32) Anion Gap 9 (6-14) Blood Urea Nitrogen 111 mg/dL (7-20) Creatinine 4.3 mg/dL (0.6-1.0) Estimated GFR (Cockcroft-Gault) 9.9 Glucose Level 234 mg/dL (70-99) Calcium Level 8.2 mg/dL (8.5-10.1) O2 Saturation 95 % (92-99) Arterial Blood pH 7.41 (7.35-7.45) Arterial Blood pCO2 at Patient Temp 47 mmHg (35-46) Arterial Blood pO2 at Patient Temp 79 mmHg (65-108) Arterial Blood HCO3 29 mmol/L (21-28) Arterial Blood Base Excess 4 mmol/L (-3-3) FiO2 40/vent Test 01/14/21 11:29 01/14/21 18:53 01/15/21 00:06 01/15/21 04:10 Glucose (Fingerstick) 205 mg/dL (70-99) 210 mg/dL (70-99) 209 mg/dL (70-99) White Blood Count 15.6 x10^3/uL (4.0-11.0) Red Blood Count 4.45 x10^6/uL (3.50-5.40) Hemoglobin 11.7 g/dL (12.0-15.5) Hematocrit 37.3 % (36.0-47.0) Mean Corpuscular Volume 84 fL (79-100) Mean Corpuscular Hemoglobin 26 pg (25-35) Mean Corpuscular Hemoglobin Concent 31 g/dL (31-37) Red Cell Distribution Width 14.6 % (11.5-14.5) Platelet Count 209 x10^3/uL (140-400) Neutrophils (%) (Auto) 78 % (31-73) Lymphocytes (%) (Auto) 12 % (24-48) Monocytes (%) (Auto) 9 % (0-9) Eosinophils (%) (Auto) 1 % (0-3) Basophils (%) (Auto) 0 % (0-3) Neutrophils # (Auto) 12.2 x10^3/uL (1.8-7.7) Lymphocytes # (Auto) 1.8 x10^3/uL (1.0-4.8) Monocytes # (Auto) 1.4 x10^3/uL (0.0-1.1) Eosinophils # (Auto) 0.1 x10^3/uL (0.0-0.7) Basophils # (Auto) 0.1 x10^3/uL (0.0-0.2) Sodium Level 143 mmol/L (136-145) Potassium Level 3.5 mmol/L (3.5-5.1) Chloride Level 102 mmol/L (98-107) Carbon Dioxide Level 29 mmol/L (21-32) Anion Gap 12 (6-14) Blood Urea Nitrogen 117 mg/dL (7-20) Creatinine 4.7 mg/dL (0.6-1.0) Estimated GFR (Cockcroft-Gault) 9.0 Glucose Level 165 mg/dL (70-99) Calcium Level 8.4 mg/dL (8.5-10.1) Test 01/15/21 05:32 Glucose (Fingerstick) 182 mg/dL (70-99) Laboratory Tests Test 01/14/21 11:29 01/14/21 18:53 01/15/21 00:06 01/15/21 04:10 Glucose (Fingerstick) 205 mg/dL (70-99) 210 mg/dL (70-99) 209 mg/dL (70-99) White Blood Count 15.6 x10^3/uL (4.0-11.0) Red Blood Count 4.45 x10^6/uL (3.50-5.40) Hemoglobin 11.7 g/dL (12.0-15.5) Hematocrit 37.3 % (36.0-47.0) Mean Corpuscular Volume 84 fL (79-100) Mean Corpuscular Hemoglobin 26 pg (25-35) Mean Corpuscular Hemoglobin Concent 31 g/dL (31-37) Red Cell Distribution Width 14.6 % (11.5-14.5) Platelet Count 209 x10^3/uL (140-400) Neutrophils (%) (Auto) 78 % (31-73) Lymphocytes (%) (Auto) 12 % (24-48) Monocytes (%) (Auto) 9 % (0-9) Eosinophils (%) (Auto) 1 % (0-3) Basophils (%) (Auto) 0 % (0-3) Neutrophils # (Auto) 12.2 x10^3/uL (1.8-7.7) Lymphocytes # (Auto) 1.8 x10^3/uL (1.0-4.8) Monocytes # (Auto) 1.4 x10^3/uL (0.0-1.1) Eosinophils # (Auto) 0.1 x10^3/uL (0.0-0.7) Basophils # (Auto) 0.1 x10^3/uL (0.0-0.2) Sodium Level 143 mmol/L (136-145) Potassium Level 3.5 mmol/L (3.5-5.1) Chloride Level 102 mmol/L (98-107) Carbon Dioxide Level 29 mmol/L (21-32) Anion Gap 12 (6-14) Blood Urea Nitrogen 117 mg/dL (7-20) Creatinine 4.7 mg/dL (0.6-1.0) Estimated GFR (Cockcroft-Gault) 9.0 Glucose Level 165 mg/dL (70-99) Calcium Level 8.4 mg/dL (8.5-10.1) Test 01/15/21 05:32 Glucose (Fingerstick) 182 mg/dL (70-99) Medications Active Scripts Medications Dose Route/Sig Max Daily Dose Days Date Category Dose Instructions Cephalexin 500 Mg Tablet 1 Tab PO TID 7 07/05/20 Rx Thera-M Tablet (Multivits,Ca,Minerals/Iron/Fa) 1 Each Tablet 1 Tab PO DAILY 07/05/20 Rx Vitamin C (Ascorbic Acid) 500 Mg Tablet 500 Mg PO DAILY 07/05/20 Rx Lantus (Insulin Glargine,Hum.rec.anlog) 100 Unit/1 Ml Vial 12 Unit SQ QHS 07/05/20 Rx Metolazone 2.5 Mg Tablet 2.5 Mg PO QMWF 07/05/20 Rx Klor-Con M20 (Potassium Chloride) 20 Meq Tab.er.prt 20 Meq PO BID 07/05/20 Rx Toprol XL (Metoprolol Succinate) 50 Mg Tab.er.24h 50 Mg PO DAILY 07/05/20 Rx Furosemide 40 Mg Tablet 40 Mg PO BID 06/12/20 Rx Amlodipine Besylate 5 Mg Tablet 5 Mg PO DAILY 06/12/20 Rx Atorvastatin Calcium 40 Mg Tablet 40 Mg PO QHS 06/12/20 Rx Admelog (Insulin Lispro) 100 Unit/1 Ml Vial 6 Units SQ TIDAC 06/04/20 Rx hold if blood sugar less than 90 before a meal Nyamyc (Nystatin) 15 Gm Powder 1 Renee TP BID 05/12/20 Rx Stool Soft-Stimulant Lax Tab (Sennosides/Docusate Sodium) 1 Each Tablet 2 Tab PO DAILY 05/12/20 Rx Feosol (Ferrous Sulfate) 325 Mg Tablet 325 Mg PO QODAY 05/12/20 Rx Aspirin 81 Mg Tab.chew 81 Mg PO HS 05/03/20 Reported Synthroid (Levothyroxine Sodium) 150 Mcg Tablet 150 Mcg PO DAILY06 05/21/19 Rx Allopurinol 100 Mg Tablet 100 Mg PO DAILY 05/21/19 Rx Paroxetine Hcl 20 Mg Tablet 20 Mg PO DAILY 05/21/19 Rx Tylenol (Acetaminophen) 325 Mg Tablet 650 Mg PO PRN Q4HRS 05/19/13 Reported Comments cxr reviewed Improving aeration of the lungs with decrease in size of now small right pleural effusion with adjacent compressive atelectasis versus infiltrate. Similar to marginally improved degree of moderate pulmonary vascular congestion. Impression . IMPRESSION: 1. Acute on chronic hypoxemic hypercapnic respiratory failure. 2. Acute on chronic diastolic heart failure. 3. Peripheral arterial disease, status post left knee amputation. 4. Obstructive sleep apnea. 5. Chest pain per Cardiology./Cardiomyopathy ejection fraction 25% 6. Leukocytosis related to urinary tract infection, Escherichia coli. Infectious Disease has been following. 7. Hypothyroidism. 8. Type 2 diabetes. 9. Paroxysmal atrial fibrillation. 10. Status post CODE BLUE 11. Acute renal failure Plan . Updated 01/15 Continue vent support setting reviewed, off sedation withdraws to pain only. Cannot exclude the possibility of anoxic brain injury. Post sedation encephalopathy would be another etiology in the setting of renal failure and delayed clearance of medications. no improvement so far Family is planning to withdraw care in the next 24 hours. We will continue to monitor mental status. elevate hob abx per id pepcid hep for prophylaxis Overall prognosis is poor DNR discussed w skein yarn dyer to withdraw care today Updated 01/14 Continue vent support setting reviewed, off sedation withdraws to pain only. Cannot exclude the possibility of anoxic brain injury. Post sedation encephalopathy would be another etiology in the setting of renal failure and delayed clearance of medications. Family is planning to withdraw care in the next 24 hours. We will continue to monitor mental status. elevate hob abx per id pepcid hep for prophylaxis Overall prognosis is poor DNR discussed w rn Updated 01/13 Continue vent support setting reviewed, off sedation sbt when alert. So far not responsive. She does trigger the vent. Cannot exclude the possibility of anoxic brain injury. Post sedation encephalopathy would be another etiology in the setting of renal failure and delayed clearance of medications elevate hob abx per id pepcid hep for prophylaxis Overall prognosis is poor DNR discussed w rn I have discussed with patient's son and father. I have explained to them patient's clinical situation. I have also discussed with nephrology Dr. Loco. Neurology consultation has been obtained. We will continue to monitor for her neurological improvement while she remains off sedation. Decision to pursue with dialysis and possible cardiac cath will depend on her neurological recovery. Updated 01/12 Continue vent support setting reviewed, off sedation sbt when alert elevate hob abx per id pepcid hep for prophylaxis Overall prognosis is poor DNR discussed w rn Updated 01/11 Continue vent support setting reviewed, decrease sedation sbt when alert elevate hob abx per id pepcid hep for prophylaxis Overall prognosis is poor Patient is currently DNR discuss w rn Updated 01/10 Continue current support Discussed case with son yesterday Discussed case with Dr. Rollins yesterday Overall prognosis is poor Patient is currently DNR Updated 01/09 Case discussed with son at the bedside who is the DPOA, I informed him that patient had multiorgan failure, I recommend withdrawing care and allowing natural Patient has advanced directive, did not want to be placed on mechanical support She was on hospice prior to this admission We will continue current support, awaiting family decision for possible comfort care Case discussed with RN and RT Case discussed with Dr. Lara Total cumulative critical care time of 30 minutes with no overlap BILL BHANDARI MD Jan 15, 2021 08:23
[2021-01-15] MEDS: ASPIRIN CHEWABLE 81 MG TABLET. PO SCH (08:57)
[2021-01-15] MEDS: LACTOBACILLUS RHAMNOSUS GG 1 CAPSULE. PO SCH (08:57)
[2021-01-15] MEDS: METOPROLOL SUCC 24HR ER 50 MG TAB.ER.24H. PO SCH (08:57)
[2021-01-15] MEDS: ALLOPURINOL 100 MG TABLET. PO SCH (08:57)
[2021-01-15] MEDS: CHLORHEXIDINE 0.12% 15 ML MOUTHWASH. MM SCH (08:57)
[2021-01-15] MEDS ORDERED: GLYCOPYRROLATE 1 MG/5 ML VIAL. IV ONE (10:30)
[2021-01-15] MEDS ORDERED: fentaNYL PF VIAL 100 MCG/2 ML VIAL IVP PRN ×2 (10:30)
--- NOTE | 2021-01-15 10:32 | PDOC ---
PROGRESS NOTES Date of Service DATE: 01/15/21 TIME: 10:29 Subjective Subjective discussed with son KASIA who will have patient removed from ventilator this morning. family present. present. Objective Objective Vital Signs Date Time Temp Pulse Resp B/P (MAP) Pulse Ox O2 Delivery O2 Flow Rate FiO2 01/15/21 09:19 97 Ventilator 01/15/21 08:57 99 120/66 01/15/21 06:00 98.9 12 98.9 01/10/21 17:40 2.0 Intake and Output 01/15/21 07:00 Intake Total 1180 ml Output Total 750 ml Balance 430 ml IV Total 400 ml Tube Feeding 780 ml Output Urine Total 750 ml Physical Exam Abdomen: Soft, Other (obese) Heart: Regular rate, Normal S1, Normal S2 Extremities: Other (1 plus edema arms.left AKA) General: Other (unresponsive) HEENT: Atraumatic, Other (NG tube) Lungs: Clear to auscultation Neuro: Other (unresponsive) Psych/Mental Status: Other (unresponsive) Skin: No rashes Assessment Assessment Problems. Chest pain, resolved with sublingual nitroglycerin. 2. Non-ST segment elevated myocardial infarction. 3. Vnsad-cm-tcwuphr systolic congestive heart failure, 4. Leukocytosis resolved 5. Coronary artery disease, nonobstructive. 60% LAD 05/26 per cardiac cath 6. Diabetes mellitus type 2, on insulin with nephropathy and neuropathy. hyperglycemia 7. Chronic kidney disease stage.3. 8. Hypertension. 9. Hyperlipidemia. 10. Hypothyroidism. 11. Obstructive sleep apnea. Treated with CPAP. 12. Morbid obesity. 13. Chronic venous insufficiency of the legs with left below-knee amputation, severe protein calorie malnutrition acute respiratory failure. hx of co2 narcosis in past acute kidney injury due to cardiorenal syndrome e. coli uti code blue/PEA 01/08/21 acute hypoxic and hypercapnic respiratory failure on ventilator hypokalemia acute metabolic/hypoxic encephalopathy Medical Problems: (1) CHF exacerbation Status: Acute (2) CKD (chronic kidney disease) Status: Acute (3) NSTEMI (non-ST elevated myocardial infarction) Status: Acute (4) Person under investigation for COVID-19 Status: Acute (5) Respiratory failure, unspecified with hypoxia Status: Acute (6) UTI (urinary tract infection) Status: Acute Plan Plan of Care family to extubate this morning comnfort measures Comment Review of Relevant I have reviewed the following items helio (where applicable) has been applied. Labs Laboratory Tests Test 01/13/21 11:30 01/13/21 11:51 01/13/21 18:08 01/13/21 19:40 Heparin Anti-Xa Act, Unfractionated 0.58 IU/mL (0.30-0.70) 0.36 IU/mL (0.30-0.70) Glucose (Fingerstick) 285 mg/dL (70-99) 257 mg/dL (70-99) Test 01/13/21 23:56 01/14/21 03:05 01/14/21 06:19 01/14/21 08:00 Glucose (Fingerstick) 276 mg/dL (70-99) 246 mg/dL (70-99) White Blood Count 11.5 x10^3/uL (4.0-11.0) Red Blood Count 4.05 x10^6/uL (3.50-5.40) Hemoglobin 10.7 g/dL (12.0-15.5) Hematocrit 33.6 % (36.0-47.0) Mean Corpuscular Volume 83 fL (79-100) Mean Corpuscular Hemoglobin 26 pg (25-35) Mean Corpuscular Hemoglobin Concent 32 g/dL (31-37) Red Cell Distribution Width 14.8 % (11.5-14.5) Platelet Count 178 x10^3/uL (140-400) Neutrophils (%) (Auto) 79 % (31-73) Lymphocytes (%) (Auto) 10 % (24-48) Monocytes (%) (Auto) 9 % (0-9) Eosinophils (%) (Auto) 1 % (0-3) Basophils (%) (Auto) 0 % (0-3) Neutrophils # (Auto) 9.1 x10^3/uL (1.8-7.7) Lymphocytes # (Auto) 1.2 x10^3/uL (1.0-4.8) Monocytes # (Auto) 1.0 x10^3/uL (0.0-1.1) Eosinophils # (Auto) 0.1 x10^3/uL (0.0-0.7) Basophils # (Auto) 0.0 x10^3/uL (0.0-0.2) Heparin Anti-Xa Act, Unfractionated 0.46 IU/mL (0.30-0.70) Sodium Level 143 mmol/L (136-145) Potassium Level 3.4 mmol/L (3.5-5.1) Chloride Level 102 mmol/L (98-107) Carbon Dioxide Level 32 mmol/L (21-32) Anion Gap 9 (6-14) Blood Urea Nitrogen 111 mg/dL (7-20) Creatinine 4.3 mg/dL (0.6-1.0) Estimated GFR (Cockcroft-Gault) 9.9 Glucose Level 234 mg/dL (70-99) Calcium Level 8.2 mg/dL (8.5-10.1) O2 Saturation 95 % (92-99) Arterial Blood pH 7.41 (7.35-7.45) Arterial Blood pCO2 at Patient Temp 47 mmHg (35-46) Arterial Blood pO2 at Patient Temp 79 mmHg (65-108) Arterial Blood HCO3 29 mmol/L (21-28) Arterial Blood Base Excess 4 mmol/L (-3-3) FiO2 40/vent Test 01/14/21 11:29 01/14/21 18:53 01/15/21 00:06 01/15/21 04:10 Glucose (Fingerstick) 205 mg/dL (70-99) 210 mg/dL (70-99) 209 mg/dL (70-99) White Blood Count 15.6 x10^3/uL (4.0-11.0) Red Blood Count 4.45 x10^6/uL (3.50-5.40) Hemoglobin 11.7 g/dL (12.0-15.5) Hematocrit 37.3 % (36.0-47.0) Mean Corpuscular Volume 84 fL (79-100) Mean Corpuscular Hemoglobin 26 pg (25-35) Mean Corpuscular Hemoglobin Concent 31 g/dL (31-37) Red Cell Distribution Width 14.6 % (11.5-14.5) Platelet Count 209 x10^3/uL (140-400) Neutrophils (%) (Auto) 78 % (31-73) Lymphocytes (%) (Auto) 12 % (24-48) Monocytes (%) (Auto) 9 % (0-9) Eosinophils (%) (Auto) 1 % (0-3) Basophils (%) (Auto) 0 % (0-3) Neutrophils # (Auto) 12.2 x10^3/uL (1.8-7.7) Lymphocytes # (Auto) 1.8 x10^3/uL (1.0-4.8) Monocytes # (Auto) 1.4 x10^3/uL (0.0-1.1) Eosinophils # (Auto) 0.1 x10^3/uL (0.0-0.7) Basophils # (Auto) 0.1 x10^3/uL (0.0-0.2) Sodium Level 143 mmol/L (136-145) Potassium Level 3.5 mmol/L (3.5-5.1) Chloride Level 102 mmol/L (98-107) Carbon Dioxide Level 29 mmol/L (21-32) Anion Gap 12 (6-14) Blood Urea Nitrogen 117 mg/dL (7-20) Creatinine 4.7 mg/dL (0.6-1.0) Estimated GFR (Cockcroft-Gault) 9.0 Glucose Level 165 mg/dL (70-99) Calcium Level 8.4 mg/dL (8.5-10.1) Test 01/15/21 05:32 Glucose (Fingerstick) 182 mg/dL (70-99) Laboratory Tests Test 01/14/21 11:29 01/14/21 18:53 01/15/21 00:06 01/15/21 04:10 Glucose (Fingerstick) 205 mg/dL (70-99) 210 mg/dL (70-99) 209 mg/dL (70-99) White Blood Count 15.6 x10^3/uL (4.0-11.0) Red Blood Count 4.45 x10^6/uL (3.50-5.40) Hemoglobin 11.7 g/dL (12.0-15.5) Hematocrit 37.3 % (36.0-47.0) Mean Corpuscular Volume 84 fL (79-100) Mean Corpuscular Hemoglobin 26 pg (25-35) Mean Corpuscular Hemoglobin Concent 31 g/dL (31-37) Red Cell Distribution Width 14.6 % (11.5-14.5) Platelet Count 209 x10^3/uL (140-400) Neutrophils (%) (Auto) 78 % (31-73) Lymphocytes (%) (Auto) 12 % (24-48) Monocytes (%) (Auto) 9 % (0-9) Eosinophils (%) (Auto) 1 % (0-3) Basophils (%) (Auto) 0 % (0-3) Neutrophils # (Auto) 12.2 x10^3/uL (1.8-7.7) Lymphocytes # (Auto) 1.8 x10^3/uL (1.0-4.8) Monocytes # (Auto) 1.4 x10^3/uL (0.0-1.1) Eosinophils # (Auto) 0.1 x10^3/uL (0.0-0.7) Basophils # (Auto) 0.1 x10^3/uL (0.0-0.2) Sodium Level 143 mmol/L (136-145) Potassium Level 3.5 mmol/L (3.5-5.1) Chloride Level 102 mmol/L (98-107) Carbon Dioxide Level 29 mmol/L (21-32) Anion Gap 12 (6-14) Blood Urea Nitrogen 117 mg/dL (7-20) Creatinine 4.7 mg/dL (0.6-1.0) Estimated GFR (Cockcroft-Gault) 9.0 Glucose Level 165 mg/dL (70-99) Calcium Level 8.4 mg/dL (8.5-10.1) Test 01/15/21 05:32 Glucose (Fingerstick) 182 mg/dL (70-99) Microbiology 01/05/21 Blood Culture - Final, Complete NO GROWTH AFTER 5 DAYS 01/05/21 Urine Culture - Final, Complete 01/05/21 Antimicrobic Susceptibility - Final, Complete Medications Current Medications Furosemide (Lasix) 80 mg 1X ONCE IVP Last administered on 01/05/21at 09:21; Start 01/05/21 at 09:00; Stop 01/05/21 at 09:01; Status DC Nitroglycerin (Nitrostat) 0.4 mg PRN Q5MIN PRN SL CHEST PAIN Last administered on 01/08/21at 03:16; Start 01/05/21 at 09:30 Ceftriaxone Sodium (Rocephin) 1 gm 1X ONCE IVP Last administered on 01/05/21at 12:41; Start 01/05/21 at 12:00; Stop 01/05/21 at 12:09; Status DC Aspirin (Raulito Aspirin) 325 mg DAILY PO Last administered on 01/09/21at 08:12; Start 01/05/21 at 12:00; Stop 01/10/21 at 11:41; Status DC Insulin Human Lispro (HumaLOG) 4 units TIDAC SQ Last administered on 01/08/21at 08:25; Start 01/05/21 at 16:30; Stop 01/09/21 at 13:18; Status DC Insulin Glargine (Lantus Syringe) 12 unit QHS SQ Last administered on 01/08/21at 21:14; Start 01/05/21 at 21:00; Stop 01/09/21 at 13:18; Status DC Insulin Human Lispro (HumaLOG) 0-8 UNITS TIDWMEALS SQ Last administered on 01/05/21at 23:41; Start 01/05/21 at 17:00; Stop 01/09/21 at 13:18; Status DC Ondansetron HCl (Zofran Odt) 4 mg PRN Q6HRS PRN PO NAUSEA/VOMITING Last administered on 01/06/21at 23:20; Start 01/05/21 at 11:45 Ondansetron HCl (Zofran Odt) 4 mg TIDAC PO Last administered on 01/08/21at 08:16; Start 01/05/21 at 12:00; Stop 01/11/21 at 18:30; Status DC Levothyroxine Sodium (Synthroid) 150 mcg DAILY06 PO Last administered on 01/15/21at 05:30; Start 01/06/21 at 06:00 Furosemide (Lasix) 40 mg BID92 PO Last administered on 01/06/21at 08:38; Start 01/05/21 at 14:00; Stop 01/06/21 at 10:42; Status DC Metolazone (Zaroxolyn) 2.5 mg MoWeFr@0900 PO Last administered on 01/08/21at 08:17; Start 01/06/21 at 09:00; Stop 01/08/21 at 12:26; Status DC Potassium Chloride (Klor-Con) 20 meq BID PO Last administered on 01/06/21at 08:38; Start 01/05/21 at 21:00; Stop 01/06/21 at 10:42; Status DC Metoprolol Succinate (Toprol Xl) 50 mg DAILY PO Last administered on 01/15/21at 08:57; Start 01/06/21 at 09:00 Amlodipine Besylate (Norvasc) 5 mg DAILY PO Last administered on 01/08/21at 08:18; Start 01/06/21 at 09:00; Stop 01/09/21 at 13:18; Status DC Senna/Docusate Sodium (Senna Plus) 2 tab QHS PO Last administered on 01/14/21at 21:01; Start 01/05/21 at 21:00 Allopurinol (Zyloprim) 100 mg DAILY PO Last administered on 01/15/21at 08:57; Start 01/06/21 at 09:00 Atorvastatin Calcium (Lipitor) 40 mg QHS PO Last administered on 01/14/21at 21:01; Start 01/05/21 at 21:00 Paroxetine HCl (Paxil) 20 mg DAILY PO Last administered on 01/11/21at 12:49; Start 01/06/21 at 09:00; Stop 01/11/21 at 13:03; Status DC Piperacillin Sod/ Tazobactam Sod 3.375 gm/Sodium Chloride 50 ml @ 100 mls/hr Q6HRS IV Last administered on 01/06/21at 06:08; Start 01/05/21 at 12:00; Stop 01/06/21 at 10:42; Status DC Heparin Sodium (Porcine) (Heparin Sodium) 5,000 unit Q12HR SQ ; Start 01/05/21 at 21:00; Stop 01/05/21 at 18:35; Status DC Famotidine (Pepcid) 20 mg QHS PO Last administered on 01/14/21at 21:01; Start 01/05/21 at 21:00 Acetaminophen (Tylenol) 650 mg PRN Q6HRS PRN PO MILD PAIN / TEMP > 100.3'F Last administered on 01/10/21at 03:59; Start 01/05/21 at 12:15 Heparin Sodium/ Dextrose 250 ml @ 13.32 mls/ hr CONT PRN IV PER PROTOCOL Last administered on 01/06/21at 17:00; Start 01/05/21 at 19:00; Stop 01/07/21 at 14:35; Status DC Heparin Sodium (Porcine) (Heparin Sodium) 2,800 unit PRN Q6HRS PRN IV FOR UFH LEVEL LESS THAN 0.2 Last administered on 01/06/21at 21:30; Start 01/05/21 at 19:00; Stop 01/07/21 at 14:35; Status DC Perflutren Protein Type A Microsphe (Optison) 0.66 mg STK-MED ONCE IV ; Start 01/06/21 at 07:20; Stop 01/06/21 at 07:20; Status DC Perflutren Protein Type A Microsphe (Optison) 0.66 mg 1X ONCE IV ; Start 01/06/21 at 08:15; Stop 01/06/21 at 08:16; Status DC Piperacillin Sod/ Tazobactam Sod 2.25 gm/Sodium Chloride 50 ml @ 100 mls/hr Q6HRS IV Last administered on 01/08/21at 05:17; Start 01/06/21 at 12:00; Stop 01/08/21 at 10:40; Status DC Potassium Chloride (Klor-Con) 20 meq TID PO Last administered on 01/07/21at 08:44; Start 01/06/21 at 14:00; Stop 01/07/21 at 10:42; Status DC Furosemide (Lasix) 40 mg BID92 IVP Last administered on 01/07/21at 08:46; Start 01/06/21 at 14:00; Stop 01/07/21 at 10:42; Status DC Potassium Chloride (Klor-Con) 20 meq 1X ONCE PO Last administered on 01/06/21at 11:19; Start 01/06/21 at 11:30; Stop 01/06/21 at 11:31; Status DC Lactobacillus Rhamnosus (Culturelle) 1 cap BID PO Last administered on 01/14/21at 21:01; Start 01/06/21 at 21:00 Perflutren Protein Type A Microsphe (Optison) 0.66 mg STK-MED ONCE IV ; Start 01/06/21 at 08:00; Stop 01/07/21 at 09:00; Status DC Potassium Chloride (Klor-Con) 20 meq BID PO Last administered on 01/08/21at 08:16; Start 01/07/21 at 21:00; Stop 01/08/21 at 12:26; Status DC Furosemide (Lasix) 40 mg DAILY PO Last administered on 01/08/21at 08:16; Start 01/08/21 at 09:00; Stop 01/08/21 at 12:26; Status DC Potassium Chloride (Klor-Con) 20 meq 1X ONCE PO Last administered on 01/07/21at 11:07; Start 01/07/21 at 10:45; Stop 01/07/21 at 10:46; Status DC Bisacodyl (Dulcolax Supp) 10 mg PRN DAILY PRN VT CONSTIPATION Last administered on 01/08/21at 02:20; Start 01/08/21 at 02:15 Dobutamine HCl/ Dextrose 250 ml @ 17.43 mls/ hr CONT PRN IV SEE I/O RECORD Last administered on 01/08/21at 10:20; Start 01/08/21 at 10:00 Ceftriaxone Sodium (Rocephin) 1 gm Q24H IVP Last administered on 01/08/21at 11:06; Start 01/08/21 at 11:00; Stop 01/09/21 at 10:15; Status DC Heparin Sodium (Porcine) (Heparin Sodium) 5,000 unit Q12HR SQ Last administered on 01/09/21at 22:01; Start 01/08/21 at 13:00; Stop 01/10/21 at 05:35; Status DC Acetaminophen/ Hydrocodone Bitart (Lortab 5/325) 1 tab PRN Q4HRS PRN PO PAIN; Start 01/08/21 at 13:45; Status UNV Norepinephrine Bitartrate 8 mg/ Dextrose 258 ml @ 22.485 mls/ hr CONT PRN IV PER PROTOCOL Last administered on 01/09/21at 11:05; Start 01/08/21 at 19:00 Norepinephrine Bitartrate 8 mg/ Dextrose 258 ml @ 22.485 mls/ hr CONT PRN IV PER PROTOCOL; Start 01/08/21 at 19:00; Status UNV Fentanyl Citrate 30 ml @ 0 mls/hr CONT PRN IV SEE PROTOCOL Last administered on 01/11/21at 02:06; Start 01/08/21 at 19:00 Midazolam HCl 100 ml @ 1 mls/hr CONT PRN IV SEE PROTOCOL Last administered on 01/11/21at 03:51; Start 01/08/21 at 19:00 Propofol 100 ml @ 0.1 mls/hr CONT PRN IV PER PROTOCOL; Start 01/08/21 at 19:00 Chlorhexidine Gluconate (Peridex) 15 ml BID MM Last administered on 01/14/21at 21:01; Start 01/08/21 at 21:00 Glycerin/ Hypromellose/ Polyethylene (Artificial Tears) 1 drop PRN Q1HR PRN OU DRY EYE; Start 01/08/21 at 19:00 Dexmedetomidine HCl 400 mcg/ Sodium Chloride 100 ml @ 5.8 mls/hr CONT PRN IV PER PROTOCOL; Start 01/08/21 at 19:00 Sodium Chloride 500 ml @ 500 mls/hr 1X PRN PRN IV SEE COMMENTS; Start 01/08/21 at 19:00 Atropine Sulfate (ATROPINE 0.5mg SYRINGE) 0.5 mg PRN Q5MIN PRN IV SEE COMMENTS; Start 01/08/21 at 19:00 Ringer's Solution 1,000 ml @ 100 mls/hr Q10H IV Last administered on 01/08/21at 21:08; Start 01/08/21 at 20:15; Stop 01/10/21 at 08:42; Status DC Fentanyl Citrate (Fentanyl 2ml Vial) 100 mcg STK-MED ONCE .ROUTE ; Start 01/08/21 at 20:42; Stop 01/08/21 at 20:42; Status DC Piperacillin Sod/ Tazobactam Sod 2.25 gm/Sodium Chloride 50 ml @ 100 mls/hr Q6HRS IV Last administered on 01/11/21at 05:56; Start 01/09/21 at 12:00; Stop 01/11/21 at 12:38; Status DC Insulin Human Lispro (HumaLOG) 0-8 UNITS BG 400-49... Q6HRS SQ Last adm inistered on 01/15/21at 00:08; Start 01/09/21 at 18:00 Heparin Sodium/ Dextrose 250 ml @ 10 mls/hr CONT PRN IV PER PROTOCOL Last administered on 01/15/21at 05:40; Start 01/10/21 at 05:30 Heparin Sodium (Porcine) (Heparin Sodium) 2,850 unit PRN Q6HRS PRN IV FOR UFH LEVEL LESS THAN 0.2 Last administered on 01/10/21at 13:08; Start 01/10/21 at 05:30 Info (Anti-Coagulation Monitoring By Pharmacy) 1 each PRN DAILY PRN MC PER PROTOCOL Last administered on 01/10/21at 10:00; Start 01/10/21 at 05:45 Furosemide (Lasix) 40 mg 1X ONCE IVP Last administered on 01/10/21at 09:15; Start 01/10/21 at 08:45; Stop 01/10/21 at 08:46; Status DC Aspirin (Aspirin Chewable) 81 mg DAILYWBKFT PO Last administered on 01/15/21at 08:57; Start 01/10/21 at 09:15 Linezolid (Zyvox) 600 mg BID PO Last administered on 01/13/21at 20:35; Start 01/10/21 at 16:00; Stop 01/14/21 at 09:21; Status DC Atropine Sulfate (ATROPINE 1mg SYRINGE) 1 mg STK-MED ONCE .ROUTE ; Start 01/05/21 at 16:07; Stop 01/10/21 at 16:08; Status DC Epinephrine HCl (EPINEPHrine SYRINGE) 2 mg STK-MED ONCE .ROUTE ; Start 01/05/21 at 16:07; Stop 01/10/21 at 16:08; Status DC Midazolam HCl (Versed) 5 mg STK-MED ONCE .ROUTE ; Start 01/05/21 at 16:07; Stop 01/10/21 at 16:08; Status DC Sodium Bicarbonate (Sodium Bicarb Adult 8.4% Syr) 100 meq STK-MED ONCE .ROUTE ; Start 01/05/21 at 16:07; Stop 01/10/21 at 16:08; Status DC Piperacillin Sod/ Tazobactam Sod 2.25 gm/Sodium Chloride 50 ml @ 100 mls/hr Q8HRS IV Last administered on 01/15/21at 05:30; Start 01/11/21 at 14:00 Potassium Bicarbonate (Potassium Effervescent Tablet) 40 meq 1X ONCE PO ; Start 01/11/21 at 09:00; Stop 01/11/21 at 13:05; Status DC Potassium Bicarbonate (Potassium Effervescent Tablet) 40 meq 1X ONCE PO Last administered on 01/11/21at 18:12; Start 01/11/21 at 18:00; Stop 01/11/21 at 18:01; Status DC Potassium Bicarbonate (Potassium Effervescent Tablet) 20 meq 1X ONCE PO Last administered on 01/12/21at 14:06; Start 01/12/21 at 13:00; Stop 01/12/21 at 13:01; Status DC Insulin Human Lispro (HumaLOG) 6 units Q6HRS SQ Last administered on 01/13/21at 05:38; Start 01/12/21 at 13:00; Stop 01/13/21 at 10:42; Status DC Insulin Human Lispro (HumaLOG) 10 units Q6HRS SQ Last administered on 01/14/21at 06:00; Start 01/13/21 at 12:00; Stop 01/14/21 at 10:09; Status DC Potassium Bicarbonate (Potassium Effervescent Tablet) 20 meq 1X ONCE PO Last administered on 01/13/21at 12:01; Start 01/13/21 at 11:00; Stop 01/13/21 at 11:01; Status DC Insulin Human Lispro (HumaLOG) 14 units Q6HRS SQ Last administered on 01/15/21at 05:35; Start 01/14/21 at 12:00 Potassium Chloride (Klor-Con) 20 meq 1X ONCE PO Last administered on 01/14/21at 11:25; Start 01/14/21 at 10:15; Stop 01/14/21 at 10:16; Status DC Active Scripts Active Cephalexin 500 Mg Tablet 1 Tab PO TID 7 Days Thera-M Tablet (Multivits,Ca,Minerals/Iron/Fa) 1 Each Tablet 1 Tab PO DAILY Vitamin C (Ascorbic Acid) 500 Mg Tablet 500 Mg PO DAILY Lantus (Insulin Glargine,Hum.rec.anlog) 100 Unit/1 Ml Vial 12 Unit SQ QHS Metolazone 2.5 Mg Tablet 2.5 Mg PO QMWF Klor-Con M20 (Potassium Chloride) 20 Meq Tab.er.prt 20 Meq PO BID Toprol XL (Metoprolol Succinate) 50 Mg Tab.er.24h 50 Mg PO DAILY Furosemide 40 Mg Tablet 40 Mg PO BID Amlodipine Besylate 5 Mg Tablet 5 Mg PO DAILY Atorvastatin Calcium 40 Mg Tablet 40 Mg PO QHS Admelog (Insulin Lispro) 100 Unit/1 Ml Vial 6 Units SQ TIDAC hold if blood sugar less than 90 before a meal Nyamyc (Nystatin) 15 Gm Powder 1 Renee TP BID Stool Soft-Stimulant Lax Tab (Sennosides/Docusate Sodium) 1 Each Tablet 2 Tab PO DAILY Feosol (Ferrous Sulfate) 325 Mg Tablet 325 Mg PO QODAY Synthroid (Levothyroxine Sodium) 150 Mcg Tablet 150 Mcg PO DAILY06 Allopurinol 100 Mg Tablet 100 Mg PO DAILY Paroxetine Hcl 20 Mg Tablet 20 Mg PO DAILY Reported Aspirin 81 Mg Tab.chew 81 Mg PO HS Tylenol (Acetaminophen) 325 Mg Tablet 650 Mg PO PRN Q4HRS Vitals/I & O Vital Sign - Last 24 Hours 01/14/21 01/14/21 01/14/21 01/14/21 11:06 11:35 11:41 12:11 Temp 98.9 98.9 Pulse 73 76 Resp 12 12 B/P (MAP) 114/64 110/60 Pulse Ox 96 95 95 O2 Delivery Ventilator Mechanical Ventilator Ventilator Ventilator 01/14/21 01/14/21 01/14/21 01/14/21 13:01 13:45 14:06 15:22 Temp 98.9 98.9 Pulse 76 78 76 Resp 12 12 12 B/P (MAP) 116/61 120/63 121/65 Pulse Ox 95 95 95 95 O2 Delivery Ventilator Ventilator Ventilator Ventilator 01/14/21 01/14/21 01/14/21 01/14/21 16:02 16:02 16:03 17:04 Pulse 79 81 Resp 12 12 B/P (MAP) 114/59 117/62 Pulse Ox 93 93 93 O2 Delivery Ventilator Ventilator Mechanical Ventilator Ventilator 01/14/21 01/14/21 01/14/21 01/14/21 18:13 18:50 19:44 20:00 Pulse 82 Resp 12 B/P (MAP) 116/67 Pulse Ox 93 93 93 O2 Delivery Ventilator Ventilator Ventilator Mechanical Ventilator 01/14/21 01/14/21 01/14/21 01/14/21 20:00 21:00 21:49 22:00 Temp 98.9 98.9 Pulse 82 83 83 Resp 12 12 12 B/P (MAP) 132/68 118/65 119/67 Pulse Ox 95 96 96 95 O2 Delivery Ventilator Ventilator Ventilator Ventilator 01/14/21 01/14/21 01/15/21 01/15/21 23:00 23:34 00:00 00:00 Temp 98.6 98.6 Pulse 77 75 Resp 12 12 B/P (MAP) 116/50 106/62 Pulse Ox 97 97 97 O2 Delivery Ventilator Ventilator Ventilator Mechanical Ventilator 01/15/21 01/15/21 01/15/21 01/15/21 01:00 01:12 02:00 03:00 Temp 98.6 98.6 Pulse 75 80 85 Resp 12 12 12 B/P (MAP) 121/55 123/57 113/58 Pulse Ox 97 97 97 97 O2 Delivery Ventilator Ventilator Ventilator Ventilator 01/15/21 01/15/21 01/15/21 01/15/21 03:35 04:00 04:00 05:00 Pulse 90 92 Resp 12 12 B/P (MAP) 121/67 117/66 Pulse Ox 96 94 95 O2 Delivery Ventilator Mechanical Ventilator Ventilator Ventilator 01/15/21 01/15/21 01/15/21 01/15/21 05:32 06:00 07:09 08:57 Temp 98.9 98.9 Pulse 87 99 Resp 12 B/P (MAP) 94/72 120/66 Pulse Ox 95 94 96 O2 Delivery Ventilator Ventilator Ventilator 01/15/21 09:19 Pulse Ox 97 O2 Delivery Ventilator Intake and Output 01/14/21 01/14/21 01/15/21 15:00 23:00 07:00 Intake Total 260 ml 660 ml 260 ml Output Total 275 ml 200 ml 275 ml Balance -15 ml 460 ml -15 ml Justifications for Admission Other Justification TERE ALLISON MD Jan 15, 2021 10:32
--- NOTE | 2021-01-15 10:40 | NUR ---
SS following up with discharge planning. SS reviewed pt chart and discussed with pt RN and family. Withdrawal of care this morning. Pt's family is present in room. Pt's son requesting referral to [facility], ; fax [phone], if pt does not pass right away. Referral phoned and faxed to [facility] Intake. SS will continue to follow as needed.
[2021-01-15] MEDS ORDERED: MORPHINE SULFATE 4 MG/ML INJ. IV PRN (10:45)
--- NOTE | 2021-01-15 10:51 | NUR ---
Patient extubated to comfort care at 1045 with family at bedside.
--- NOTE | 2021-01-15 11:05 | PDOC ---
Renal-Progress Notes Subjective Notes Notes UNRESPONSIVE History of Present Illness Hx of present illness SON PLANNING ON COMFORT CARE Vitals Vitals Vital Signs Date Time Temp Pulse Resp B/P (MAP) Pulse Ox O2 Delivery O2 Flow Rate FiO2 01/15/21 09:19 97 Ventilator 01/15/21 08:57 99 120/66 01/15/21 06:00 98.9 12 98.9 Weight Weight [ ] I.O. Intake and Output Intake and Output 01/15/21 07:00 Intake Total 1180 ml Output Total 750 ml Balance 430 ml IV Total 400 ml Tube Feeding 780 ml Output Urine Total 750 ml Labs Labs Laboratory Tests Test 01/14/21 11:29 01/14/21 18:53 01/15/21 00:06 01/15/21 04:10 Glucose (Fingerstick) 205 mg/dL (70-99) 210 mg/dL (70-99) 209 mg/dL (70-99) White Blood Count 15.6 x10^3/uL (4.0-11.0) Red Blood Count 4.45 x10^6/uL (3.50-5.40) Hemoglobin 11.7 g/dL (12.0-15.5) Hematocrit 37.3 % (36.0-47.0) Mean Corpuscular Volume 84 fL (79-100) Mean Corpuscular Hemoglobin 26 pg (25-35) Mean Corpuscular Hemoglobin Concent 31 g/dL (31-37) Red Cell Distribution Width 14.6 % (11.5-14.5) Platelet Count 209 x10^3/uL (140-400) Neutrophils (%) (Auto) 78 % (31-73) Lymphocytes (%) (Auto) 12 % (24-48) Monocytes (%) (Auto) 9 % (0-9) Eosinophils (%) (Auto) 1 % (0-3) Basophils (%) (Auto) 0 % (0-3) Neutrophils # (Auto) 12.2 x10^3/uL (1.8-7.7) Lymphocytes # (Auto) 1.8 x10^3/uL (1.0-4.8) Monocytes # (Auto) 1.4 x10^3/uL (0.0-1.1) Eosinophils # (Auto) 0.1 x10^3/uL (0.0-0.7) Basophils # (Auto) 0.1 x10^3/uL (0.0-0.2) Sodium Level 143 mmol/L (136-145) Potassium Level 3.5 mmol/L (3.5-5.1) Chloride Level 102 mmol/L (98-107) Carbon Dioxide Level 29 mmol/L (21-32) Anion Gap 12 (6-14) Blood Urea Nitrogen 117 mg/dL (7-20) Creatinine 4.7 mg/dL (0.6-1.0) Estimated GFR (Cockcroft-Gault) 9.0 Glucose Level 165 mg/dL (70-99) Calcium Level 8.4 mg/dL (8.5-10.1) Test 01/15/21 05:32 Glucose (Fingerstick) 182 mg/dL (70-99) Micro Micro Microbiology 01/05/21 Blood Culture - Final, Complete NO GROWTH AFTER 5 DAYS 01/05/21 Urine Culture - Final, Complete 01/05/21 Antimicrobic Susceptibility - Final, Complete Review of Systems Constitutional: yes: unresponsive Physical Exam General Appearance: no apparent distress Skin: warm Respiratory: ventilator (Mode:A/C), decreased breath sounds Heart: S1S2 Abdomen: soft Extremities: pulses present, no edema, atrophy Neurology: other (ON THE VENT, NOT SEDATED) Assessment Assessment IMP [id number] ACUTE RESP FAILURE S/P CODE BLUE WITH ASYSTOLE URINARY TRACT INFECTION LEUCOCYTOSIS CM WITH EF OF 25% DM II ? ANOXIC BRAIN INJURY PLAN HAS ANOXIC BRAIN INJURY PT WAS APPARENTLY ON HOSPICE PRIOR TO THIS ACUTE EVENT PT BEING EXTUBATED WITH COMFORT CARE MEASURES WILL SIGN OFF TIFFANY SIDDIQUI MD Jan 15, 2021 11:05
--- NOTE | 2021-01-15 13:02 | NUR ---
1045- comfort measures initiated, patient extubated family at bedside. At 1215 patient went asystole. Rebecca Varela and this nurse independently assessed patient. there was no apical heartbeat for 1 min. family at bedside at [facility] and removed all of patients personal belongings. [facility] notified referral # [id number]. Patient is a possible candidate for tissue. Nursing net making supervisor notified. Addendum: 01/15/21 at 1306 by MILAD PISANO RN Dr Lara also notified of [facility]
--- NOTE | 2021-01-15 16:05 | PDOC ---
Provider Note Date of Service: DATE: 01/15/21 TIME: 16:04 Provider Note discharge summary dictated # [id number] Justifications for Admission Other Justification TERE ALLISON MD Jan 15, 2021 16:05
--- NOTE | 2021-01-15 19:10 | DS ---
DATE OF DISCHARGE: 01/15/2021 CONSULTANTS: Include Seferino Arnett MD; Nakia Lopez MD; Connie Rivera MD; George Marquez MD; Dr. Kessler. FINAL DIAGNOSES: 1. Acute on chronic systolic congestive heart failure. 2. Non-ST segment elevated myocardial infarction. 3. Coronary artery disease, nonobstructive. 4. Diabetes mellitus type 2, on insulin with neuropathy, nephropathy and hyperglycemia. 5. Acute kidney injury on top of chronic kidney disease stage 3. 6. Hypertension. 7. Hyperlipidemia. 8. Hypothyroidism. 9. Obstructive sleep apnea. 10. Morbid obesity. 11. Chronic venous insufficiency of the legs. 12. History of a left below-knee amputation. 13. Acute hypoxic and hypercapnic respiratory failure, on the ventilator. 14. Status post code blue, pulseless electrical cardiac arrest, 01/08/2021. 15. Escherichia coli urinary tract infection. 16. Acute kidney injury due to cardiorenal syndrome. 17. Severe protein-calorie malnutrition. 18. Hypokalemia. 19. Acute metabolic and hypoxic encephalopathy. HOSPITAL COURSE: The patient is a 80-year-old morbidly obese white female with history of diabetes mellitus type 2, treated with insulin and diabetic nephropathy who has chronic kidney disease stage 3 and also has peripheral neuropathy, hypertension, hyperlipidemia, hypothyroidism, obstructive sleep apnea, peripheral arterial disease, nonobstructive coronary artery disease, chronic congestive heart failure, admitted to [facility] at the Emergency Room on 01/05/2021 with the onset of shortness of breath and decreased appetite. The patient did have a cough with some yellow sputum, which started the day before; had some shortness of breath the night before. She went to the Emergency Room, where her high-sensitivity troponin level was elevated at 713, proBNP was elevated over 20,000. She received a dose of IV Lasix and IV Rocephin in the Emergency Room with a white count of 20,000 with mild pyuria. She had some right upper quadrant abdominal tenderness. A chest x-ray showed lung infiltrates. She was admitted to the hospital. She did have a non-ST segment elevated myocardial infarction. She also had acute on chronic systolic congestive heart failure with an echocardiogram showing a left ventricular ejection fraction of 25%. She was seen by multiple consultants. She had a pulseless electrical cardiac arrest on 01/08/2021 and hypoxic encephalopathy. She had a metabolic encephalopathy. She developed acute kidney injury on top of chronic kidney disease stage 3 due to cardiorenal syndrome. She was seen by Dr. Holbrook for Neurology, also seen by Dr. Lopez and Dr. Shankar for Pulmonary, Dr. Rivera for Nephrology, Dr. George Marquez for Infectious Disease and Dr. Kessler for Cardiology. The patient was intubated due to the acute hypoxic and hypercapnic respiratory failure. She was unresponsive. The DPOA, her son, noted that she was not getting any better, decided to extubate her today and she was pronounced at 12:15 p.m. Son did not want to do hemodialysis and just wanted comfort measures only and did not want to undergo a cardiac catheterization either. KEO DR: Pearl TID: [id number]
[2021-01-18] MEDS ORDERED: SCOPOLAMINE 1.5MG PATCH. TD SCH (09:00)
== END 2021-01-15 12:15 | DRG 207 ==
LOC: ER 07:24 → ED HOLD 08:40 → 6 SOUTH 10:17 → 1 WEST ICU 01-08 19:20
PROVIDERS: ADMIT Internal Medicine; ATTEND Internal Medicine
PROC: 5A1955Z Respiratory Ventilation, Greater than 96 Consecutive Hours (ICD-10-PCS; principal; 2021-01-08)
PROC: 5A09357 Assistance with Respiratory Ventilation, Less than 24 Consecutive Hours, Continuous Positive Airway Pressure (ICD-10-PCS; 2021-01-08)
PROC: 0BH17EZ Insertion of Endotracheal Airway into Trachea, Via Natural or Artificial Opening (ICD-10-PCS; 2021-01-08)
DX: J96.21 Acute and chronic respiratory failure with hypoxia (principal); I21.4 Non-ST elevation (NSTEMI) myocardial infarction; I50.43 Acute on chronic combined systolic (congestive) and diastolic (congestive) heart failure; E43 Unspecified severe protein-calorie malnutrition; G93.41 Metabolic encephalopathy; N17.0 Acute kidney failure with tubular necrosis; G93.1 Anoxic brain damage, not elsewhere classified; I13.0 Hypertensive heart and chronic kidney disease with heart failure and stage 1 through stage 4 chronic kidney disease, or unspecified chronic kidney disease; J98.11 Atelectasis; L03.115 Cellulitis of right lower limb; N39.0 Urinary tract infection, site not specified; R47.01 Aphasia; Z68.41 Body mass index [BMI] 40.0-44.9, adult; B96.20 Unspecified Escherichia coli [E. coli] as the cause of diseases classified elsewhere; D63.8 Anemia in other chronic diseases classified elsewhere; E03.9 Hypothyroidism, unspecified; E11.22 Type 2 diabetes mellitus with diabetic chronic kidney disease; E11.319 Type 2 diabetes mellitus with unspecified diabetic retinopathy without macular edema; E11.42 Type 2 diabetes mellitus with diabetic polyneuropathy; E11.51 Type 2 diabetes mellitus with diabetic peripheral angiopathy without gangrene; E66.01 Morbid (severe) obesity due to excess calories; E78.5 Hyperlipidemia, unspecified; E87.6 Hypokalemia; G47.33 Obstructive sleep apnea (adult) (pediatric); I25.10 Atherosclerotic heart disease of native coronary artery without angina pectoris; I46.9 Cardiac arrest, cause unspecified; I48.0 Paroxysmal atrial fibrillation; I87.2 Venous insufficiency (chronic) (peripheral); J96.22 Acute and chronic respiratory failure with hypercapnia; K59.00 Constipation, unspecified; N18.30 Chronic kidney disease, stage 3 unspecified; T50.2X5A Adverse effect of carbonic-anhydrase inhibitors, benzothiadiazides and other diuretics, initial encounter; Z20.822 Contact with and (suspected) exposure to COVID-19; Z79.4 Long term (current) use of insulin; Z79.890 Hormone replacement therapy; Z82.49 Family history of ischemic heart disease and other diseases of the circulatory system; Z83.3 Family history of diabetes mellitus; Z87.440 Personal history of urinary (tract) infections; Z89.512 Acquired absence of left leg below knee; Z90.49 Acquired absence of other specified parts of digestive tract; Z90.710 Acquired absence of both cervix and uterus; E66.9 Obesity, unspecified; F41.9 Anxiety disorder, unspecified; M19.90 Unspecified osteoarthritis, unspecified site; Z79.899 Other long term (current) drug therapy; Z66 Do not resuscitate
CPT/HCPCS: 36415; 36600; 70450; 71045; 71250; 74018; 74176; 76770; 80048; 80053; 80061; 80076; 80307; 81001; 82805; 82962; 83690; 83735; 83880; 84484; 85007; 85025; 85027; 85520; 87040; 87077; 87086; 87186; 87426; 87804; 93005; 93306; 94002; 94003; 94660; 94760; 96374; J0171; J0461; J0696; J1250; J1644; J1815; J1940; J2060; J2250; J2543; J3010; J3490; J7060; J7120; Q9956; U0003; U0005; 97530-GO; 97530-GP; 99285-25; G0378